=== PATIENT | female | born 1945 | race Caucasian/White ===

== ENCOUNTER → 2017-06-27 16:57 | Outpatient (CLI) | payer MEDICARE, OTHER, SELFPAY | PROVIDERS: Family Provider Family Medicine; PCP Family Medicine; Visit Provider Otolaryngology Otolaryngology/Facial Plastic Surgery | DX: J32.9 Chronic sinusitis, unspecified (principal) | CPT/HCPCS: 87070; 87205 ==

== ENCOUNTER → 2017-10-06 14:53 | Outpatient (CLI) | payer MEDICARE, OTHER, SELFPAY ==
--- NOTE | 2017-10-06 15:04 | BI_ITS ---
MAMMOGRAPHY - BILATERAL SCREENING REASON FOR EXAM: Female, 72 years old. Routine annual screening examination. PERTINENT HISTORY: Non-contributory. TECHNIQUE: Digital bilateral breast sue (3D mammographic acquisition) in the CC and MLO projections. 2-D mediolateral oblique (MLO) and craniocaudad (CC) views of both breasts were obtained. CAD: Full Field Digital Mammography with Computer Added Detection was performed. COMPARISON: Comparison is made with prior study dated 04/15/2015 and July 23, 2014. FINDINGS: Breast Composition: The breasts are heterogeneously dense, which may obscure small masses. There are no dominant masses or suspicious calcifications. No other significant abnormalities are identified. There has been no significant change since the prior study. BI/SCREENING MAMM (CAD), BILAT IMPRESSION: Stable bilateral screening mammogram. Yearly follow-up mammogram recommended. (A) ASSESSMENT CATEGORY: BIRADS Category 1: Negative. A letter regarding these results will be sent to the patient by the facility within 30 days. Approximately 10% of breast cancers are not detected by mammography. A normal mammogram should not delay biopsy of a clinically suspicious abnormality. [id number] Electronically Signed: Juanpablo Duran MD at 8:12 EDT Tel [phone], Service support ,
== END ==
PROVIDERS: Family Provider Family Medicine; PCP Family Medicine; Visit Provider Family Medicine
DX: Z12.31 Encounter for screening mammogram for malignant neoplasm of breast (principal)
CPT/HCPCS: 77062; 77067; G0279

== ENCOUNTER → 2018-01-13 15:44 | Outpatient (CLI) | payer MEDICARE, OTHER, SELFPAY | PROVIDERS: Family Provider Family Medicine; PCP Family Medicine; Referring Provider Family Medicine; Visit Provider Family Medicine | DX: R30.0 Dysuria (principal) | CPT/HCPCS: 87086; 87088; 87186 ==

== ENCOUNTER 2018-07-11 19:53 | Emergency (ER) | payer MEDICARE, OTHER, SELFPAY ==
[2018-07-11 19:57] VITALS: BP 154/96; PULSE 74; PULSE 76; RESP 17; RESP 18; TEMP 36.6; O2SAT 98; O2SAT 99; BMI 22.2
--- NOTE | 2018-07-11 20:20 | RAD_ITS ---
STUDY: X-RAY - LEFT ELBOW REASON FOR EXAM: Female, 73 years old. Pain TECHNIQUE: 3 view(s) of the elbow. COMPARISON: None. FINDINGS: A moderate effusion is present. There is a minimally displaced intra-articular fracture of the radial head. There are no significant degenerative changes. There are no radiodense foreign bodies. RAD/Elbow min 3 Views IMPRESSION: Moderate effusion with minimally displaced intra-articular fracture of the radial head. Electronically Signed: Richard Mclaughlin, at 21:10 EDT Tel , Service support ,
--- NOTE | 2018-07-11 21:11 | ED.VISSUMM ---
- ER Visit Summary Date of Service: 07/11/18 Chief Complaint: Fall History of Present Illness: The patient is a 73 F presenting after fall. Patient states that she was at her grandson's baseball game. She was getting off the bleachers. She states it was higher than she thought and when she stepped off she lost her balance and fell onto her left arm. She did not hit her head or lose consciousness. She was able to get up and ambulate without difficulty. She is not on anticoagulants. She complains of left elbow pain. Denies other injuries. Physical Examination: Vitals are stable. Patient is afebrile. Alert no acute distress. HEENT exam is unremarkable. Neck is nontender Lungs are clear and equal bilaterally. Heart is regular rate and rhythm. Abdomen is soft nontender nondistended. Extremities left elbow diffuse tenderness with painful range of motion, neurovascular intact distally Skin is warm and dry. No focal neurologic deficit. Remainder of exam is unremarkable. Emergency Department Course and Treatment: Left elbow x-ray shows moderate effusion with minimally displaced intra-articular fracture of the radial head. Patient was put in posterior arm Ortho-Glass splint. She declined pain medication. She is advised to follow-up with orthopedics. Advised return to the ED for worsening complaints. Disposition: Discharge home Impression: Left radial head fracture This note was generated with Metaps dictation software. It may contain incorrect words, spelling, and punctuation that were not noted in review of the chart prior to signing ED Disposition - Plan for ED Patient: Instructions: ED Fx Radial Head Referrals: Edwardo Petit MD [Primary Care Provider] - Aguila Pizarro DO [STAFF PHYSICIAN] - Eduardo Hernandez DO [STAFF PHYSICIAN] -
--- NOTE | 2018-07-11 22:36 | ED.DEP ---
ED Disposition - Plan for ED Patient: Instructions: ED Fx Radial Head Referrals: Edwardo Petit MD [Primary Care Provider] - Aguila Pizarro DO [STAFF PHYSICIAN] - Eduardo Hernandez DO [STAFF PHYSICIAN] -
== END 2018-07-11 22:59 | disposition home or self-care (01) ==
PROVIDERS: Emergency Provider Emergency Medicine; Family Provider Family Medicine; PCP Family Medicine
DX: S52.122A Displaced fracture of head of left radius, initial encounter for closed fracture (principal); W17.89XA Other fall from one level to another, initial encounter; Y93.89 Activity, other specified; Y92.320 Baseball field as the place of occurrence of the external cause; Y99.9 Unspecified external cause status
CPT/HCPCS: 73080; 99282

== ENCOUNTER → 2018-09-29 07:24 | Outpatient (CLI) | payer MEDICARE, OTHER, SELFPAY ==
[2018-09-29 08:29] LABS: Absolute Lymphocyte Count 1.47 X10^3/uL (0.83-4.51); Absolute Neutrophil Count 2.4 X10^3/uL (2.0-7.7); Basophil# 0.03 X10^3/uL; Basophil% 0.6 % (0-1); Eosinophil# 0.18 X10^3/uL; Eosinophils% 3.9 % (0-5); Hematocrit 41.1 % (37-47); Hemoglobin 13.5 g/dL (12.0-15.0); Lymphocyte # 1.47 X10^3/ul (4.0); Lymphocyte % 31.7 % (19-41); Mean Corp Hgb Conc 32.8 g/dL (32-36); Mean Corpuscular Hgb 29.9 pg (27.0-32.0); Mean Corpuscular Volume 90.9 fL (81-99); Mean Platelet Vol. 8.9 fl (6.2-12.0); Monocyte# 0.52 X10^3/uL; Monocyte% 11.2 % (0-10); NRBC Flagged by Analyzer 0 % (0-5); Neutrophil # 2.42 X10^3/uL (2.7-7.7); Neutrophil % 52.2 % (47-70); Platelet Count 329 K/mm3 (150-450); RBC Distribution Width CV 12.4 % (11.6-14.6); RBC Distribution Width SD 41.1 fl (35.1-43.9); Red Blood Count 4.52 M/mm3 (4.2-5.4); White Blood Count 4.6 K/mm3 (4.4-11.0)
[2018-09-29 09:04] LABS: Anion Gap 6 (5-15); BUN 15 mg/dL (7-18); BUN/Creat Ratio 21.9 RATIO (10-20); Calcium,Total 9.3 mg/dL (8.5-10.1); Chloride 99 mmol/L (98-107); Cholesterol 191 mg/dL (200); Creatinine, Serum 0.68 mg/dL (0.55-1.02); EST Glomerular Filtration Rate 90 mL/min (>60); Est Glom Filt Rate - Afr Amer 109 mL/min (>60); Glucose 94 mg/dL (74-106); High Density Lipoprotein 99 mg/dL; Potassium 3.9 mmol/L (3.5-5.1); Sodium Level 136 mmol/L (136-145); Thyroid Stim Hormone (TSH) 2.39 uIU/mL (0.358-3.74); Triglycerides 41 mg/dL; Very Low Density Lipoprotein 8 mg/dL (5-40)
== END ==
PROVIDERS: Family Provider Family Medicine; PCP Family Medicine; Referring Provider Family Medicine; Visit Provider Family Medicine
DX: Z00.00 Encounter for general adult medical examination without abnormal findings (principal); E55.9 Vitamin D deficiency, unspecified
CPT/HCPCS: 36415; 80048; 80061; 82306; 84443; 85025

== ENCOUNTER → 2018-10-25 11:10 | Outpatient (CLI) | payer MEDICARE, OTHER, SELFPAY ==
--- NOTE | 2018-10-25 11:24 | BI_ITS ---
MAMMOGRAPHY - BILATERAL SCREENING 3-D TOMOSYNTHESIS REASON FOR EXAM: Female, 73 years old. Bilateral Screening 3-D tomosynthesis PERTINENT HISTORY: No significant family history. TECHNIQUE: 2-D mammograms and 3-D Tomosynthesis of the breast (s) were performed. CAD was performed. COMPARISON: 10/06/2017, 08/24/2015, 07/23/2014 FINDINGS: The breast composition is heterogeneously dense that can obscure small breast masses. Scattered benign calcifications are seen. No dense spiculated masses or suspicious microcalcifications are identified. No architectural distortion is identified. There is no skin thickening or retraction. There has been no significant change since the prior study. BI/SCREEN MAMM (CAD) W/FREDDIE BILAT IMPRESSION: No mammographic signs of malignancy. Routine yearly mammograms recommended. ASSESSMENT CATEGORY: BIRADS Category 2: Benign. A letter regarding these results will be sent to the patient by the facility within 30 days. FOLLOW UP RECOMMENDATION: Yearly follow up mammogram recommended. (A) Approximately 10% of breast cancers are not detected by mammography. A normal mammogram should not delay biopsy of a clinically suspicious abnormality. Electronically Signed: Jeo Gibbs MD at 16:20 EDT Tel [phone], Service support ,
--- NOTE | 2018-10-25 11:24 | BD_ITS ---
STUDY: DUAL ENERGY X-RAY ABSORPTIOMETRY / DXA REASON FOR EXAM: Female, 73 years old. The patient is postmenopausal. No loss of height. TECHNIQUE: Bone Mineral Density (BMD) measurements of lumbar spine and bilateral hips were obtained. COMPARISON: Comparison is made with prior study dated August 24, 2016. FINDINGS: Lumbar Spine (L1-L4): g/cm2 (0.845) / T-score (-2.7) / Z-score (-1.0) Findings are suggestive of osteoporosis with a high fracture risk. Left Femur Total: g/cm2 (0.872) / T-score (-1.1) / Z-score (0.5) Left Femoral Neck: g/cm2 (0.876) / T-score (-1.2) / Z-score (0.6) Right Femur Total: g/cm2 (0.876) / T-score (-1.0) / Z-score (0.5) Right Femoral Neck: g/cm2 (0.876) / T-score (-1.2) / Z-score (0.6) The T-Scores on the most recent prior examination were: Lumbar Spine (L1-L4): There has been worsening of bone density since the previous examination. Left Femur Total: which represents a worsening of 1.6%. Right Femur Total: which represents an improvement of 1.2%. BD/Dexa Bone Density Study IMPRESSION: The patient is considered osteoporotic as outlined below according to World Andrzej Organization (WHO) criteria with a high fracture risk. There has been worsening of bone density since the previous examination. Reference Information: The T-score is the number of standard deviations above or below the standard which is normal for young adults at their peak bone mineral density. The World Health Organization (WHO) interprets the T-scores as follows: Above -1 Normal bone density Between -1 and -2.5 Osteopenia Equal to / or below -2.5 Osteoporosis As a practical clinical guideline, osteopenia may be graded as follows: Mild -1 through -1.5 Moderate -1.6 through -2.0 Severe -2.1 through -2.4 The Z-score is the number of standard deviations above or below age-matched controls. A Z-score of less than -1.5 would be considered abnormal. References: 1. NIH Osteoporosis and Related Bone Diseases http://www.osteo.org 2. International Society for Clinical Densitometry http://www.iscd.org 3. National Osteoporosis Foundation http://www.nof.org Electronically Signed: Juanpablo Duran, at 10:58 EDT , Service support ,
== END ==
PROVIDERS: Family Provider Family Medicine; PCP Family Medicine; Referring Provider Family Medicine; Visit Provider Family Medicine
DX: Z12.31 Encounter for screening mammogram for malignant neoplasm of breast (principal); Z78.0 Asymptomatic menopausal state
CPT/HCPCS: 77063; 77067; 77080

== ENCOUNTER 2018-11-22 13:00 | Outpatient (RCR) | payer MEDICARE, OTHER, SELFPAY ==
--- NOTE | 2018-11-15 14:06 | HP.PTEVAL_ITS ---
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 Date of Evaluation: 11/15/18 Physical Therapist: Dennis Ricketts, PT, Cert MDT, OCS - Visit Plan Frequency: 1-2x /Week Duration: 3 Weeks Plan: PT INTERVENTIONS WB ACTIITIES ,DLS,POSTURAL EX'S - Subjective Findings: This 73y/o female presents physical therapy osteoprosis of spine . Patient had routine physical with MD found osteoprosis . Patient main goal is to strength and posture and education with prevention. Denies parathesia/tingling Coughing/sneezing-. Bowel/bladder -. Sleeping okay. Patient worksout at . Patient has minimla pain. Symptoms affects QOL.Aggravating factors too much bending. Alleviating factors exercise. Patient has DJD left shoulder needs RSR. 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 SOCIAL: - Objective POSTURE: WFL. NEURO: intact. SYMMTRIES: align. GAIT: reciprocal pattern. PALPATION: unremarkable. MMT: 4/5 BLE QUADS/HAMS/HIP ANKLE. LUMBAR ROM: flexion WNL,extension min loss,side glides min loss. FLEXABLIY: hams WNL - Special Tests L/S Slump test left side: Negative L/S Slump test right side: Negative L/S Left Straight Leg Raise: Negative L/S Right Straight Leg Raise: Negative L/S Left Femoral Nerve Tension: Negative L/S Right Femoral Nerve Tension: Negative - Goals Goal 1:: Patient to Independant with HEP. Goal Time Frame: 2-4 Weeks Goal 2:: Patient to improve posture for ADL'S Goal Time Frame: 2-4 Weeks Goal 3:: No epsisode of lumbar pain. Goal Time Frame: 2-4 Weeks Goal 4:: Pateint improve back owestry score 100% Goal Time Frame: 2-4 Weeks - Rehabilitation Potential Physical Therapy Diagnosis: This patient has osteoporesis lumbar spine benifit from appropriate exercises for skilled PT Rehabilitation Potential: Good - Anticipated Interventions Patient/Client Instruction: Educate patient on: Condition, Plan of Care For the Purpose of:: To decrease pain, To increase ROM, To improve muscle performance and motor function, To increase tolerance to activity/con dition/position, To improve ability of physical actions for home/community/work/leisure, To improve health of tissue, To decrease soft tissue restriction, To increase flexibility/ROM, To improve ability to perform tasks related to life management Therapeutic Exercise to Include: Strength training, Body mechanics, Postural training, Flexibilty training, Dynamic Lumbar Stabilization Comment: WB For the Purpose of:: To decrease pain, To improve muscle performance and motor function, To improve ability to perform ADL's, To increase tolerance to activity/condition/position, To improve ability of physical actions for home/community/work/leisure, To improve health of tissue, To decrease soft tissue restriction, To increase flexibility/ROM, To improve ability to perform tasks related to life management Thank you for the opportunity to evaluate your patient. For Medicare and Medicare HMO plans, please review the plan of care and approve it. It will need to be FAXED BACK to us at [phone] for Medicare purposes. For Medicare only, by signing this I certify the plan of care. Please let me know if there are questions or concerns regarding this plan of care. Physician Signature: Date:
--- NOTE | 2019-01-04 15:30 | HP.PTDCNRP_ITS ---
HP - Discharge Summary (1) - Patient Information ANTONIO KANG was seen in my office for initial evaluation on 11/15/18. The following Plan of Care was established for this patient: Initial Frequency: 1-2x /Week Initial Duration: 3 Weeks - Anticipated Interventions Patient/Client Instruction: Educate patient on: Condition, Plan of Care For the Purpose of:: To decrease pain, To increase ROM, To improve muscle perf ormance and motor function, To increase tolerance to activity/condition/position, To improve ability of physical actions for home/community/work/leisure, To improve health of tissue, To decrease soft tissue restriction, To increase flexibility/ROM, To improve ability to perform tasks related to life management Therapeutic Exercise to Include: Strength training, Body mechanics, Postural training, Flexibilty training, Dynamic Lumbar Stabilization For the Purpose of:: To decrease pain, To improve muscle performance and motor function, To improve ability to perform ADL's, To increase tolerance to activity/condition/position, To improve ability of physical actions for home/community/work/leisure, To improve health of tissue, To decrease soft tis edda restriction, To increase flexibility/ROM, To improve ability to perform tasks related to life management This patient was last seen in our office 11/22/18. Pertinent comments regarding their Physical therapy will appear below: Patient seen for PT for osteoprosis with pogression to gym ex's on own thus is d/c At this point I will be discontinuing this patient from physical therapy. I would be happy to see this patient again in the future if found appropriate by the physician. Thank you! Dennis Ricketts, PT, Cert MDT, OCS
== END 2018-11-22 19:00 | disposition home or self-care (01) ==
LOC: PT 13:00
PROVIDERS: Family Provider Family Medicine; PCP Family Medicine; Referring Provider Family Medicine; Visit Provider Family Medicine
DX: M81.0 Age-related osteoporosis without current pathological fracture (principal)
CPT/HCPCS: 97110; 97161

== ENCOUNTER → 2018-11-29 10:58 | Outpatient (CLI) | payer MEDICARE, OTHER, SELFPAY ==
[2018-11-29 11:04] VITALS: BP 123/54; PULSE 90; RESP 16; TEMP 36.6; O2SAT 98; BMI 22.6
[2018-11-29] MEDS: Zoledronic Acid 5 MG 100 ML 300 MG IV (11:39)
== END ==
PROVIDERS: Family Provider Family Medicine; PCP Family Medicine; Referring Provider Family Medicine; Visit Provider Family Medicine
DX: M81.0 Age-related osteoporosis without current pathological fracture (principal)
CPT/HCPCS: 96365; A4216; J3489

== ENCOUNTER → 2018-12-12 14:03 | Outpatient (CLI) | payer MEDICARE, OTHER, SELFPAY ==
[2018-11-29 11:04] VITALS: BMI 22.6
== END ==
PROVIDERS: Family Provider Family Medicine; PCP Family Medicine; Referring Provider Nurse Practitioner Adult Health; Visit Provider Nurse Practitioner Adult Health
DX: N39.0 Urinary tract infection, site not specified (principal)
CPT/HCPCS: 87077; 87086; 87088; 87186

== ENCOUNTER → 2019-04-27 12:37 | Outpatient (CLI) | payer MEDICARE, OTHER, SELFPAY ==
[2018-11-29 11:04] VITALS: BMI 22.6
== END ==
PROVIDERS: PCP Family Medicine; Referring Provider Family Medicine; Visit Provider Family Medicine
DX: N39.0 Urinary tract infection, site not specified (principal)
CPT/HCPCS: 87086; 87088

== ENCOUNTER → 2019-05-03 12:37 | Outpatient (CLI) | payer MEDICARE, OTHER, SELFPAY ==
[2018-11-29 11:04] VITALS: BMI 22.6
[2019-05-03 13:55] LABS: Bacteria 0 SEEN /hpf (None Seen); Mucous, Urine 0 SEEN /hpf (<or=2+); Red Blood Cells-Urine 0 SEEN /hpf (0-5); Squamous Epithelial Cells - UA 0 SEEN /hpf (5-10); White Blood Cells 0 SEEN /hpf (0-5)
[2019-05-03 14:24] LABS: Color, Urine Yellow (Yellow); Glucose, Dipstick Normal (Normal); Ketone-Dipstick Negative (Negative); Leukocyte Esterase-Dipstick Negative /ul (Negative); Nitrite-Dipstick Negative (Negative); Occult Blood-Urine Negative /ul (Negative); Protein-Dipstick Negative (Negative); Specific Gravity, Urine 1.015 (1.002-1.030); Urine Bilirubin Dipstick Negative (Negative); Urine Clarity Clear (Clear); Urine Urobilinogen Normal (Normal)
== END ==
PROVIDERS: PCP Family Medicine; Referring Provider Family Medicine; Visit Provider Family Medicine
DX: N39.0 Urinary tract infection, site not specified (principal)
CPT/HCPCS: 81001; 87086; 87088

== ENCOUNTER → 2019-05-23 11:14 | Outpatient (CLI) | payer MEDICARE, OTHER, SELFPAY ==
[2018-11-29 11:04] VITALS: BMI 22.6
[2019-05-23 12:34] LABS: Color, Urine Yellow (Yellow); Glucose, Dipstick Normal (Normal); Ketone-Dipstick Negative (Negative); Leukocyte Esterase-Dipstick 500 /ul (Negative); Nitrite-Dipstick Negative (Negative); Occult Blood-Urine 250 /ul (Negative); Protein-Dipstick 30 mg/dl (Negative); Urine Bilirubin Dipstick Negative (Negative); Urine Clarity Cloudy (Clear); Urine Urobilinogen Normal (Normal)
== END ==
PROVIDERS: PCP Family Medicine; Referring Provider Urology; Visit Provider Urology
DX: N39.0 Urinary tract infection, site not specified (principal); R30.0 Dysuria
CPT/HCPCS: 81002; 87086; 87088; 87186

== ENCOUNTER → 2019-06-04 09:57 | Outpatient (CLI) | payer MEDICARE, OTHER, SELFPAY ==
[2018-11-29 11:04] VITALS: BMI 22.6
== END ==
PROVIDERS: PCP Family Medicine; Referring Provider Urology; Visit Provider Urology
DX: R30.0 Dysuria (principal); R39.15 Urgency of urination
CPT/HCPCS: 87086; 87088; 87186

== ENCOUNTER → 2019-07-06 09:20 | Outpatient (CLI) | payer MEDICARE, OTHER, SELFPAY ==
[2018-11-29 11:04] VITALS: BMI 22.6
--- NOTE | 2019-07-06 09:23 | US_ITS ---
STUDY: RENAL ULTRASOUND - COMPLETE REASON FOR EXAM: Female, 74 years old. Uti TECHNIQUE: Ultrasound evaluation of the kidneys was performed with real-time and static yanez-scale imaging. COMPARISON: None. FINDINGS: RIGHT KIDNEY: Normal location of the right kidney, which is normal in size. The right kidney measures 11 cm x 4.1 cm x 4.1 cm. There is a normal cortex of the right kidney. The renal cortex measures 1.6 cm. There is no right renal mass or cyst. There are no right renal calculi. There is an extra-renal pelvis of the right kidney. There is no distention of the renal calyces. DISTAL RIGHT URETER: There is non-visualization of the distal right ureter. There is no demonstrated right ureterovesical junction calculus. There is a visualized right ureteral jet. LEFT KIDNEY: Normal location of the left kidney, which is normal in size. The left kidney measures 11.1 cm x 4.7 cm x 4.4 cm. There is a normal cortex of the left kidney. The renal cortex measures 1.8 cm. There is no left renal mass or cyst. There are no left renal calculi. There is no left hydronephrosis. DISTAL LEFT URETER: There is non-visualization of the distal left ureter. There is no demonstrated left ureterovesical junction calculus. There is a visualized left ureteral jet. BLADDER: The distended urinary bladder has a volume of 76.2 ml. There is evidence of diffuse bladder wall thickening. There is a 2.5 cm x 3.1 cm x 2.8 cm polypoid abnormality along the base of the bladder on the left side. Correlation with the cystoscopy is recommended. US/Kidney and Bladder IMPRESSION: Bladder wall thickening with a 2.5 cm x 3.1 cm by 2.8 cm faint polypoid abnormality at the base of the bladder on the left side. Correlation with cystoscopy is recommended. Electronically Signed: Juanpablo Duran, at 10:59 EDT , Service support ,
== END ==
PROVIDERS: PCP Family Medicine; Referring Provider Urology; Visit Provider Urology
DX: N39.0 Urinary tract infection, site not specified (principal)
CPT/HCPCS: 76770

== ENCOUNTER → 2019-10-04 07:21 | Outpatient (CLI) | payer MEDICARE, OTHER, SELFPAY ==
[2018-11-29 11:04] VITALS: BMI 22.6
[2019-10-04 10:19] LABS: Absolute Lymphocyte Count 1.56 X10^3/uL (0.83-4.51); Absolute Neutrophil Count 2.5 X10^3/uL (2.0-7.7); Basophil# 0.03 X10^3/uL; Basophil% 0.6 % (0-1); Eosinophil# 0.19 X10^3/uL; Eosinophils% 3.8 % (0-5); Hematocrit 42.2 % (37-47); Hemoglobin 13.7 g/dL (12.0-15.0); Lymphocyte # 1.56 X10^3/ul (4.0); Lymphocyte % 31.6 % (19-41); Mean Corp Hgb Conc 32.5 g/dL (32-36); Mean Corpuscular Volume 92.3 fL (81-99); Monocyte% 12.1 % (0-10); NRBC Flagged by Analyzer 0 % (0-5); Neutrophil # 2.54 X10^3/uL (2.7-7.7); Neutrophil % 51.5 % (47-70); Platelet Count 346 K/mm3 (150-450); RBC Distribution Width CV 12.1 % (11.6-14.6); RBC Distribution Width SD 40.9 fl (35.1-43.9); Red Blood Count 4.57 M/mm3 (4.2-5.4); White Blood Count 4.9 K/mm3 (4.4-11.0)
[2019-10-04 10:50] LABS: ALB/GLOB Ratio 0.9 RATIO (0.9-2.4); AST(SGOT) 14 U/L (15-37); Alanine Aminotransfer ALT/SGPT 16 U/L (13-56); Albumin, Serum 3.6 g/dL (3.2-5.0); Alkaline Phosphatase 59 U/L (45-117); Anion Gap 5 (5-15); BUN 13 mg/dL (7-18); Calcium,Total 9.1 mg/dL (8.5-10.1); Chloride 101 mmol/L (98-107); Cholesterol 219 mg/dL (200); Creatinine, Serum 0.68 mg/dL (0.55-1.02); EST Glomerular Filtration Rate 89 mL/min (>60); Est Glom Filt Rate - Afr Amer 108 mL/min (>60); Globulin 4.2 g/dL (2.2-4.2); Glucose 90 mg/dL (74-106); High Density Lipoprotein 95 mg/dL; Potassium 3.8 mmol/L (3.5-5.1); Protein, Total 7.8 g/dL (6.4-8.2); Sodium Level 137 mmol/L (136-145); Thyroid Stim Hormone (TSH) 2.89 uIU/mL (0.358-3.74); Triglycerides 58 mg/dL; Very Low Density Lipoprotein 12 mg/dL (5-40)
== END ==
PROVIDERS: PCP Family Medicine; Referring Provider Family Medicine; Visit Provider Family Medicine
DX: Z00.00 Encounter for general adult medical examination without abnormal findings (principal); M81.0 Age-related osteoporosis without current pathological fracture; R53.83 Other fatigue
CPT/HCPCS: 36415; 80053; 80061; 84443; 85025

== ENCOUNTER → 2019-12-05 | Outpatient (CLI) | payer MEDICARE, OTHER, SELFPAY ==
[2018-11-29 11:04] VITALS: BMI 22.6
[2019-12-05 11:24] VITALS: BP 116/65; PULSE 70; RESP 16; TEMP 36.5; O2SAT 98; BMI 22.4
[2019-12-05] MEDS: 0.9% NaCl Peripheral Flush Adult/Peds IV (11:27)
[2019-12-05] MEDS: Zoledronic Acid 5 MG 100 ML 300 MG IV (11:33)
[2019-12-05 11:56] VITALS: BP 127/59; PULSE 59; RESP 16
== END | disposition home or self-care (01) ==
LOC: MEDOUTP 10:59
PROVIDERS: PCP Family Medicine; Referring Provider Family Medicine; Visit Provider Family Medicine
DX: M81.0 Age-related osteoporosis without current pathological fracture (principal)
CPT/HCPCS: 96365; A4216; J3489

== ENCOUNTER → 2020-04-04 07:49 | Outpatient (CLI) | payer MEDICARE, OTHER, SELFPAY ==
[2019-12-05 11:24] VITALS: BMI 22.4
[2020-04-04 10:34] LABS: ALB/GLOB Ratio 0.9 RATIO (0.9-2.4); AST(SGOT) 11 U/L (15-37); Alanine Aminotransfer ALT/SGPT 17 U/L (13-56); Albumin, Serum 3.7 g/dL (3.2-5.0); Alkaline Phosphatase 53 U/L (45-117); Anion Gap 4 (5-15); BUN 11 mg/dL (7-18); BUN/Creat Ratio 18.2 RATIO (10-20); Calcium,Total 9.4 mg/dL (8.5-10.1); Chloride 100 mmol/L (98-107); Creatinine, Serum 0.61 mg/dL (0.55-1.02); EST Glomerular Filtration Rate 103 mL/min (>60); Est Glom Filt Rate - Afr Amer 125 mL/min (>60); Globulin 3.9 g/dL (2.2-4.2); Glucose 84 mg/dL (74-106); Potassium 3.7 mmol/L (3.5-5.1); Protein, Total 7.6 g/dL (6.4-8.2); Sodium Level 135 mmol/L (136-145); Thyroid Stim Hormone (TSH) 2.37 uIU/mL (0.358-3.74)
== END ==
PROVIDERS: PCP Family Medicine; Referring Provider Family Medicine; Visit Provider Family Medicine
DX: M81.0 Age-related osteoporosis without current pathological fracture (principal)
CPT/HCPCS: 80053; 84443

== ENCOUNTER → 2020-04-21 08:53 | Outpatient (CLI) | payer MEDICARE, OTHER, SELFPAY ==
[2020-04-17 14:42] VITALS: BMI 23.7
--- NOTE | 2020-04-21 08:55 | RAD_ITS ---
STUDY: X-RAY - LUMBAR SPINE REASON FOR EXAM: Female, 75 years old. back pain TECHNIQUE: 7 view(s) of the lumbar spine were obtained. COMPARISON: 07/21/2011 FINDINGS: Normal lumbar lordosis. There is grade 1 anterolisthesis at L3/L4 and L4/L5, stable on flexion and extension. There is multilevel endplate spondylosis of the lumbar vertebrae. There is multi-level degenerative disc disease with multi-level disc space narrowing. The soft tissue structures are unremarkable. RAD/L/S Spine w Bend Min 6 Vw IMPRESSION: Degenerative changes of the spine. Electronically Signed: Walker Mena MD at 10:21 EST Tel , Service support ,
--- NOTE | 2020-04-21 08:55 | RAD_ITS ---
STUDY: X-RAY - CERVICAL SPINE REASON FOR EXAM: Female, 75 years old. back pain TECHNIQUE: 7 view(s) of the cervical spine were obtained. COMPARISON: None FINDINGS: Normal cervical lordosis. There is multi-level endplate spondylosis. There is multi-level degenerative disc disease with multilevel disc space narrowing. There are grade 1 anterolisthesis on flexion at C2-C3, C4 and C5 which completely reduces in extension. The soft tissue structures are unremarkable. RAD/Cerv Spine Obl/Flex/Ext Comp IMPRESSION: Degenerative changes of the spine. Electronically Signed: Walker Mena MD at 10:24 EST Tel , Service support ,
== END ==
PROVIDERS: PCP Family Medicine; Referring Provider Family Medicine; Visit Provider Family Medicine
DX: M54.9 Dorsalgia, unspecified (principal)
CPT/HCPCS: 72052; 72114

== ENCOUNTER → 2020-10-09 07:51 | Outpatient (CLI) | payer MEDICARE, OTHER, SELFPAY ==
[2020-10-07 13:01] VITALS: BMI 23.7
[2020-10-09 10:10] LABS: Absolute Lymphocyte Count 1.19 X10^3/uL (0.83-4.51); Absolute Neutrophil Count 2.4 X10^3/uL (2.0-7.7); Basophil# 0.03 X10^3/uL; Basophil% 0.7 % (0-1); Eosinophil# 0.17 X10^3/uL; Hematocrit 41.5 % (37-47); Hemoglobin 13.8 g/dL (12.0-15.0); Lymphocyte # 1.19 X10^3/ul (0.83-4.51); Lymphocyte % 27.7 % (19-41); Mean Corp Hgb Conc 33.3 g/dL (32-36); Mean Corpuscular Hgb 30.5 pg (27.0-32.0); Mean Corpuscular Volume 91.6 fL (81-99); Mean Platelet Vol. 9.2 fl (6.2-12.0); Monocyte# 0.47 X10^3/uL; NRBC Flagged by Analyzer 0 % (0-5); Neutrophil # 2.41 X10^3/uL (2.7-7.7); Neutrophil % 56.1 % (47-70); Platelet Count 383 K/mm3 (150-450); RBC Distribution Width CV 12.3 % (11.6-14.6); RBC Distribution Width SD 41.9 fl (35.1-43.9); Red Blood Count 4.53 M/mm3 (4.2-5.4); White Blood Count 4.3 K/mm3 (4.4-11.0)
[2020-10-09 10:28] LABS: Vitamin D,25 Hydroxy 38.3 ng/mL
[2020-10-09 10:32] LABS: PTHIN 54.3 pg/mL (18.4-80.1)
[2020-10-09 10:48] LABS: ALB/GLOB Ratio 0.9 RATIO (0.9-2.4); AST(SGOT) 16 U/L (15-37); Alanine Aminotransfer ALT/SGPT 16 U/L (13-56); Albumin, Serum 3.6 g/dL (3.2-5.0); Alkaline Phosphatase 59 U/L (45-117); Anion Gap 9 (5-15); BUN 12 mg/dL (7-18); BUN/Creat Ratio 19.9 RATIO (10-20); Chloride 97 mmol/L (98-107); Cholesterol 227 mg/dL (200); EST Glomerular Filtration Rate 104 mL/min (>60); Est Glom Filt Rate - Afr Amer 125 mL/min (>60); Globulin 3.8 g/dL (2.2-4.2); Glucose 88 mg/dL (74-106); High Density Lipoprotein 91 mg/dL; Potassium 3.8 mmol/L (3.5-5.1); Protein, Total 7.4 g/dL (6.4-8.2); Sodium Level 134 mmol/L (136-145); Thyroid Stim Hormone (TSH) 2.05 uIU/mL (0.358-3.74); Triglycerides 53 mg/dL; Very Low Density Lipoprotein 11 mg/dL (5-40)
== END ==
PROVIDERS: PCP Family Medicine; Referring Provider Family Medicine; Visit Provider Family Medicine
DX: M81.0 Age-related osteoporosis without current pathological fracture (principal); J44.9 Chronic obstructive pulmonary disease, unspecified; E03.9 Hypothyroidism, unspecified
CPT/HCPCS: 36415; 80053; 80061; 82306; 83970; 84443; 85025

== ENCOUNTER → 2020-10-30 15:19 | Outpatient (CLI) | payer MEDICARE, OTHER, SELFPAY ==
[2020-10-07 13:01] VITALS: BMI 23.7
--- NOTE | 2020-10-30 15:22 | BI_ITS ---
MAMMOGRAPHY - BILATERAL SCREENING REASON FOR EXAM: Female, 75 years old. Routine annual screening examination. PERTINENT HISTORY: Non-contributory. TECHNIQUE: Digital bilateral breast freddie (3D mammographic acquisition) in the CC and MLO projections. 2-D mediolateral oblique (MLO) and craniocaudad (CC) views of both breasts were obtained. CAD: Full Field Digital Mammography with Computer Added Detection was performed. COMPARISON: Comparison is made with prior examination dated 10/25/2018 and 10/06/2017. FINDINGS: Breast Composition: The breasts are heterogeneously dense, which may obscure small masses. There are no dominant masses or suspicious calcifications. No other significant abnormalities are identified. There has been no significant change since the prior study. BI/SCRN MAMM (CAD)W/FREDDIE BILAT IMPRESSION: Stable bilateral screening mammogram. Yearly follow-up mammogram recommended. (A) ASSESSMENT CATEGORY: BIRADS Category 1: Negative. A letter regarding these results will be sent to the patient by the facility within 30 days. Approximately 10% of breast cancers are not detected by mammography. A normal mammogram should not delay biopsy of a clinically suspicious abnormality. [id number] Electronically Signed: Juanpablo Duran MD at 7:21 EDT , Service support ,
--- NOTE | 2020-10-30 15:25 | BD_ITS ---
STUDY: DUAL ENERGY X-RAY ABSORPTIOMETRY / DXA REASON FOR EXAM: Female, 75 years old. [id number]. Patient is postmenopausal. TECHNIQUE: Bone Mineral Density (BMD) measurements of lumbar spine and bilateral hips were obtained. COMPARISON: Comparison is made with prior study date 10/25/2018. FINDINGS: Lumbar Spine (L1-L4): g/cm2 (0.729) / T-score (-2.3) / Z-score (-0.1) Findings are suggestive of osteopenia with a high fracture risk. Left Femur Total: g/cm2 (0.823) / T-score (-1.0) / Z-score (0.7) Left Femoral Neck: g/cm2 (0.794) / T-score (-0.5) / Z-score (1.5) Right Femur Total: g/cm2 (0.799) / T-score (-1.2) / Z-score (0.5) Right Femoral Neck: g/cm2 (0.706) / T-score (-1.3) / Z-score (0.7) The T-Scores on the most recent prior examination were: Lumbar Spine (L1-L4): There has been worsening of bone density since the previous examination. Left Femur Total: which represents an improvement of 1.6%. Right Femur Total: which represents a worsening of 1.8%. BD/Dexa Bone Density Study IMPRESSION: The patient is considered osteopenic as outlined below according to World Andrzej Organization (WHO) criteria with a moderate fracture risk. There has been worsening of bone density since the previous examination. Reference Information: The T-score is the number of standard deviations above or below the standard which is normal for young adults at their peak bone mineral density. The World Health Organization (WHO) interprets the T-scores as follows: Above -1 Normal bone density Between -1 and -2.5 Osteopenia Equal to / or below -2.5 Osteoporosis As a practical clinical guideline, osteopenia may be graded as follows: Mild -1 through -1.5 Moderate -1.6 through -2.0 Severe -2.1 through -2.4 The Z-score is the number of standard deviations above or below age-matched controls. A Z-score of less than -1.5 would be considered abnormal. References: 1. NIH Osteoporosis and Related Bone Diseases www osteo.org 2. International Society for Clinical Densitometry www iscd.org 3. National Osteoporosis Foundation www nof.org Electronically Signed: Juanpablo Duran MD at 8:36 EDT , Service support ,
== END ==
PROVIDERS: PCP Family Medicine; Referring Provider Family Medicine; Visit Provider Family Medicine
DX: Z12.31 Encounter for screening mammogram for malignant neoplasm of breast (principal); M81.0 Age-related osteoporosis without current pathological fracture
CPT/HCPCS: 77063; 77067; 77080

== ENCOUNTER → 2020-11-25 12:51 | Outpatient (CLI) | payer MEDICARE, OTHER, SELFPAY ==
[2020-11-25 13:13] VITALS: BP 88/58; PULSE 67; RESP 16; TEMP 36.3; O2SAT 97
[2020-11-25] MEDS: Zoledronic Acid 5 MG 100 ML 300 MG IV (13:22)
[2020-11-25] MEDS: 0.9% NaCl IVPB Med Flush (250 mL) 15 ML IV (13:22)
[2020-11-25 13:54] VITALS: BP 127/59
== END ==
PROVIDERS: PCP Family Medicine; Referring Provider Family Medicine; Visit Provider Family Medicine
DX: M81.0 Age-related osteoporosis without current pathological fracture (principal)
CPT/HCPCS: 96365; J7050; A4216; J3489

== ENCOUNTER 2021-04-03 18:04 | Outpatient (CLI) | payer MEDICARE, OTHER, SELFPAY | END 2021-04-03 23:59 | disposition short-term general hospital (02) | PROVIDERS: PCP Family Medicine; Referring Provider Family Medicine; Visit Provider Family Medicine | DX: T83.511A Infection and inflammatory reaction due to indwelling urethral catheter, initial encounter (principal) | CPT/HCPCS: 87077; 87086; 87088; 87186 ==

== ENCOUNTER 2021-04-03 21:14 | Outpatient (CLI) | payer MEDICARE, OTHER, SELFPAY ==
[2021-04-04 21:40] LABS: Absolute Lymphocyte Count 1.38 X10^3/uL (0.83-4.51); Absolute Neutrophil Count 8.8 X10^3/uL (2.0-7.7); Basophil# 0.05 X10^3/uL; Basophil% 0.4 % (0-1); Eosinophil# 0.11 X10^3/uL; Hematocrit 41.2 % (37-47); Hemoglobin 13.8 g/dL (12.0-15.0); Lymphocyte # 1.38 X10^3/ul (0.83-4.51); Lymphocyte % 12.4 % (19-41); Mean Corp Hgb Conc 33.5 g/dL (32-36); Mean Corpuscular Hgb 30.5 pg (27.0-32.0); Mean Corpuscular Volume 90.9 fL (81-99); Mean Platelet Vol. 9.5 fl (6.2-12.0); Monocyte# 0.81 X10^3/uL; Monocyte% 7.3 % (0-10); NRBC Flagged by Analyzer 0 % (0-5); Neutrophil # 8.75 X10^3/uL (2.7-7.7); Neutrophil % 78.6 % (47-70); Platelet Count 352 K/mm3 (150-450); RBC Distribution Width CV 12.7 % (11.6-14.6); RBC Distribution Width SD 42.5 fl (35.1-43.9); Red Blood Count 4.53 M/mm3 (4.2-5.4); White Blood Count 11.1 K/mm3 (4.4-11.0)
[2021-04-04 21:41] LABS: BUN 14 mg/dL (7-18); BUN/Creat Ratio 22.2 RATIO (10-20); Creatinine, Serum 0.63 mg/dL (0.55-1.02); EST Glomerular Filtration Rate 98 mL/min (>60); Est Glom Filt Rate - Afr Amer 119 mL/min (>60); Glucose 100 mg/dL (74-106)
[2021-04-04 21:42] LABS: ALB/GLOB Ratio 0.9 RATIO (0.9-2.4); AST(SGOT) 18 U/L (15-37); Alanine Aminotransfer ALT/SGPT 18 U/L (13-56); Albumin, Serum 3.6 g/dL (3.2-5.0); Alkaline Phosphatase 47 U/L (45-117); Anion Gap 5 (5-15); Calcium,Total 9.3 mg/dL (8.5-10.1); Chloride 97 mmol/L (98-107); Potassium 4.2 mmol/L (3.5-5.1); Protein, Total 7.6 g/dL (6.4-8.2); Sodium Level 132 mmol/L (136-145)
== END 2021-04-03 23:59 | disposition short-term general hospital (02) ==
PROVIDERS: PCP Family Medicine; Visit Provider Family Medicine
DX: M19.90 Unspecified osteoarthritis, unspecified site (principal); T83.511A Infection and inflammatory reaction due to indwelling urethral catheter, initial encounter; J44.9 Chronic obstructive pulmonary disease, unspecified
CPT/HCPCS: 80053; 85025; 87077; 87086; 87088; 87186

== ENCOUNTER 2021-05-08 10:00 | Outpatient (RCR) | payer MEDICARE, OTHER, SELFPAY ==
--- NOTE | 2021-04-17 10:10 | HP.PTEVAL ---
Patient's Visit Information ANTONIO KANG is a 76 year old F referred to Physical Therapy by Dr. Marcella Wheatley DPM with a diagnosis of Left Ankle Instability. Date of Evaluation: 04/17/21 Physical Therapist: Katharine Dior DPT - Visit Plan Frequency: 3x /Week Duration: 3 Weeks Plan: Focus on proprioception of left ankle. Patient has comprehensive HEP from MD - Subjective Patient reports that her left ankle she damaged years ago- stepped in a hole and has to wear an air cast and PT but never really was 100% and it continues to bother her. She saw Dr. Wheatley who had her rest in a CAM walker for a month. She wants her to wean out- stretching and strength for a month but she still feels its vulnerable. She has a brace to wear on uneven ground. She is now just doing ellip and bike and is now trying to wean back into the TM- she is active 6 days a week- does upper and lower body- machines at the [facility]- plans to come back to in June. Does wear good shoes and has orthotics. Initially very painful but its much better- does have some discomfort in the top of the foot but not enough to pain scale rate. No recent falls. Goals are to get the ankle more stable. Doing stretching, 4 way dark blue, marbles, toe scrunches, single leg stance. - Objective Posture: FH, RS can correct but does not maintain. Gait: slightly antalgic- decreased stance on the left LE with decreased toe off in push off phase. Stairs: asc/desc 8 recip with no HR. HR/TR: able without pain. Balance: Tandem stance: 15 sec each with increase muscle activation with left foot posterior position. SLS: 30 sec with mild hip drop and 1 episode of LOB. On Foam 30 sec eyes closed 2 episodes of LOB. ROM: DF: 5 degrees PF: 60 degrees, Ever: 50 degrees Inver: 60 degrees. Strength: Ankle: 4+/5, Knee: 5/5, Hip: 4/5 throughout, Core: fair. Flex: HS: moderate Gastroc: moderate - Balance/Special Test Scores Lower Extremity Functional Score: 64 - Goals Goal 1:: Patient will be I with HEP and progression Goal Time Frame: 4-6 Weeks Goal 2:: Patient will SLS for 30 sec without LOB Goal Time Frame: 4-6 Weeks Goal 3:: Patient will report return to all normal ADL's and recreational activities without feeling unstable Goal Time Frame: 4-6 Weeks - Rehabilitation Potential Physical Therapy Diagnosis: Patient presents with hypomobility- she has decreased proprioception and flexibility leading to decreased balance and confidence performing ADL's and recreational activities. Rehabilitation Potential: Good - Anticipated Interventions Patient/Client Instruction: Educate patient on: Benefits of Fitness Program Therapeutic Exercise to Include: Strength training, Endurance training, Balance training, Coordination, Agility training, Body mechanics, Postural training, Flexibilty training, Gait and locomotor training, Neuromotor development, Dynamic Lumbar Stabilization, Scapular Strength/Stabilization For the Purpose of:: To improve muscle performance and motor function Thank you for the opportunity to evaluate your patient. For Medicare and Medicare HMO plans, please review the plan of care and approve it. It will need to be FAXED BACK to us at [phone] for Medicare purposes. For Medicare only, by signing this I certify the plan of care. Please let me know if there are questions or concerns regarding this plan of care. Physician Signature: Date:
--- NOTE | 2021-05-08 10:33 | HP.PTDCSUM ---
It has been my pleasure to treat ANTONIO KANG referred by Dr. Marcella Wheatley DPM, with the diagnosis of Left Ankle Instability for a total of 10 visit(s). Discharge Date: Please see the following information for a summary of their discharge status. Subjective: Patient reports that she feels that she is stronger and her balance is better. left ankle Pain Intensity (Out of 10): 0 % Improvement: 90 Objective/Function: Posture: good throughout. Gait: no deviation noted Stairs: asc/desc 8 recip with no HR. HR/TR: able without pain. Balance: Tandem stance: 15 sec each with increase muscle activation with left foot posterior position. SLS: 30 sec . On Foam 30 sec eyes closed no episodes of LOB. ROM: DF: 10 degrees PF: 60 degrees, Ever: 50 degrees Inver: 60 degrees. Strength: Ankle: 5/5, Knee: 5/5, Hip: 4/5 throughout, Core: fair. Flex: HS: moderate Gastroc: moderate Goal 1:: Patient will be I with HEP and progression Goal Progress: Goal Met Goal 2:: Patient will SLS for 30 sec without LOB Goal Progress: Goal Met Goal 3:: Patient will report return to all normal ADL's and recreational activities without feeling unstable Goal Progress: Goal Met Plan: Discharge to HEP given today If there are questions or concerns regarding this patient's physical therapy, please feel free to call me at [phone]. Thank you for the referral of this patient. Sincerely, Katharine Dior, LOGANT Balance/Gait/Functional tests - Balance/Special Test Scores Lower Extremity Functional Score: 64
== END 2021-05-08 10:48 | disposition home or self-care (01) ==
LOC: PT 10:00
PROVIDERS: PCP Family Medicine; Referring Provider Podiatrist; Visit Provider Podiatrist
DX: M19.072 Primary osteoarthritis, left ankle and foot (principal); M25.372 Other instability, left ankle
CPT/HCPCS: 97110; 97161; 97164

== ENCOUNTER → 2021-07-09 | Outpatient (CLI) | payer MEDICARE, OTHER, SELFPAY | END | disposition home or self-care (01) | LOC: LABSPEC 15:11 | PROVIDERS: PCP Family Medicine; Visit Provider Otolaryngology Otolaryngology/Facial Plastic Surgery | DX: J32.8 Other chronic sinusitis (principal); R09.81 Nasal congestion | CPT/HCPCS: 87070; 87205 ==

== ENCOUNTER → 2021-10-15 | Outpatient (CLI) | payer MEDICARE, OTHER, SELFPAY ==
[2021-10-15 12:08] LABS: Absolute Lymphocyte Count 1.11 X10^3/uL (0.83-4.51); Absolute Neutrophil Count 3.8 X10^3/uL (2.0-7.7); Basophil# 0.03 X10^3/uL; Basophil% 0.5 % (0-1); Hematocrit 43.6 % (37-47); Hemoglobin 14.2 g/dL (12.0-15.0); Lymphocyte # 1.11 X10^3/ul (0.83-4.51); Lymphocyte % 18.7 % (19-41); Mean Corp Hgb Conc 32.6 g/dL (32-36); Mean Corpuscular Hgb 29.8 pg (27.0-32.0); Mean Corpuscular Volume 91.6 fL (81-99); Monocyte# 0.66 X10^3/uL; Monocyte% 11.1 % (0-10); NRBC Flagged by Analyzer 0 % (0-5); Neutrophil # 3.83 X10^3/uL (2.7-7.7); Neutrophil % 64.4 % (47-70); Platelet Count 433 K/mm3 (150-450); RBC Distribution Width CV 12.6 % (11.6-14.6); RBC Distribution Width SD 42.3 fl (35.1-43.9); Red Blood Count 4.76 M/mm3 (4.2-5.4)
[2021-10-15 12:26] LABS: ALB/GLOB Ratio 0.8 RATIO (0.9-2.4); AST(SGOT) 23 U/L (15-37); Alanine Aminotransfer ALT/SGPT 23 U/L (13-56); Albumin, Serum 3.5 g/dL (3.2-5.0); Alkaline Phosphatase 60 U/L (45-117); Anion Gap 4 (5-15); BUN 11 mg/dL (7-18); BUN/Creat Ratio 15.8 RATIO (10-20); Chloride 101 mmol/L (98-107); Cholesterol 199 mg/dL (200); EST Glomerular Filtration Rate 87 mL/min (>60); Est Glom Filt Rate - Afr Amer 105 mL/min (>60); Globulin 4.3 g/dL (2.2-4.2); Glucose 92 mg/dL (74-106); High Density Lipoprotein 99 mg/dL; Magnesium 2.3 mg/dL (1.6-2.6); Potassium 3.8 mmol/L (3.5-5.1); Protein, Total 7.8 g/dL (6.4-8.2); Sodium Level 135 mmol/L (136-145); Thyroid Stim Hormone (TSH) 1.39 uIU/mL (0.358-3.74); Triglycerides 48 mg/dL; Very Low Density Lipoprotein 10 mg/dL (5-40); Vitamin D,25 Hydroxy 44.1 ng/mL
== END | disposition home or self-care (01) ==
LOC: MTLAB 09:53
PROVIDERS: PCP Family Medicine; Referring Provider Family Medicine; Visit Provider Family Medicine
DX: Z00.00 Encounter for general adult medical examination without abnormal findings (principal); J44.9 Chronic obstructive pulmonary disease, unspecified; M81.0 Age-related osteoporosis without current pathological fracture
CPT/HCPCS: 36415; 80053; 80061; 82306; 83735; 84443; 85025

== ENCOUNTER → 2021-11-20 | Outpatient (CLI) | payer MEDICARE, OTHER, SELFPAY ==
[2021-11-20 10:57] VITALS: BP 111/63; PULSE 74; RESP 16; TEMP 36.2; O2SAT 97; BMI 22.9
[2021-11-20] MEDS: 0.9% NaCl IVPB Med Flush (250 mL) 15 ML IV (11:03)
[2021-11-20] MEDS: Zoledronic Acid 5 MG 100 ML 300 MG IV (11:04)
[2021-11-20 11:45] VITALS: BP 118/59; PULSE 61; RESP 16; TEMP 36.3; O2SAT 98
== END | disposition home or self-care (01) ==
LOC: MEDOUTP 10:39
PROVIDERS: PCP Family Medicine; Referring Provider Family Medicine; Visit Provider Family Medicine
DX: M81.0 Age-related osteoporosis without current pathological fracture (principal)
CPT/HCPCS: 96365; J7050; A4216; J3489

== ENCOUNTER → 2021-12-15 | Outpatient (CLI) | payer MEDICARE, OTHER, SELFPAY ==
--- NOTE | 2021-12-15 15:58 | RAD_ITS ---
HISTORY: BACK PAIN. TECHNIQUE: XR Spine Lumbar Min 4 Views. COMPARISON: 04/21/2020. FINDINGS: VERTEBRAE: Vertebral body heights preserved. Degenerative changes of the posterior elements. ALIGNMENT: Chronic minimal anterolisthesis of L3-4. INTERVERTEBRAL DISCS: Mild intervertebral disc space narrowing with endplate change at L5-S1. RAD/L/S Spine Min 4 Views IMPRESSION: No acute fracture or dislocation identified in the lumbar spine. Degenerative change. Electronically Signed: Gini Lyn MD at 10:42 EDT ,
== END | disposition home or self-care (01) ==
PROVIDERS: PCP Family Medicine; Referring Provider Family Medicine; Visit Provider Family Medicine
DX: M54.50 Low back pain, unspecified (principal)
CPT/HCPCS: 72110

== ENCOUNTER 2021-12-25 13:30 | Outpatient (RCR) | payer MEDICARE, OTHER, SELFPAY ==
--- NOTE | 2021-12-03 13:22 | HP.PTEVAL ---
Patient's Visit Information ANTONIO KANG is a 76 year old F referred to Physical Therapy by Dr. Edwardo Petit MD with a diagnosis of leg and back pain. Date of Evaluation: 12/03/21 Physical Therapist: IRENA Cotton - Visit Plan Frequency: 2x /Week Duration: 3 Weeks Plan: 2X/ week for 6 weeks for neutral spine core stability, LE and postural exercises, piriformis and IT band stretches with HEP. HEP: PT, PT with hip march, PT with ball squeeze - Subjective Back and leg pain for about a month now. 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 She has her own HP routine. Has seen Dr Donis and felt better with adjustments and then it traveled to the R side and then referred down the leg and on anti-inflamm at night for a week and sees Dr Donis on Tuesday. Currently her pain is not bad cause she is on the anti-inflamm. She can walk normally now. Prior to anti-inflamm she had pain on the L lateral side and down the ambrocio to the uncle and then it shifted to the right side. She is not having down the leg pain currently. SHe can sit for awhile and stand for awhile but it has to change position to make it feel better. She does elliptical and recumbant bike and TM. She does leg press, leg ext and HS curls and hip abd and add, pulleys, free weights for her arms, sit to stands, seated flexion with a weight with no pain, ankle and balance stuff, Rebounder - Pain back pain Pain Intensity (Out of 10): 1 - Objective Gait: Walks with increase stance time on the R LE, she feels some R anterior groin pain with walking. R hip flex 11.6# and L hiop flex12.2#. R knee ext 16.7# and L knee ext 17#. R knee flex 15.2# and R knee ext 9#. Trunk AROM: flexion 75%, Ext 25%, Sb B 50%, Rot B 50%. -SLR, good HS flexibility. some L piriformis tightness. Pt has limited IR on the L compared to the R... with piriformis stretching on the L she feels it more in the groin than than on the R side. - Balance/Special Test Scores Oswestry Low Back Score: 9 - Goals Goal 1:: I HEP and make sure pt is using her core during her H&[employer] gym routine Goal Time Frame: 4-6 Weeks Goal 2:: Decrease back and leg pain to 0/10 with walking and ADL's Goal Time Frame: 4-6 Weeks Goal 3:: Be able to walk with feeling less stiffness/restriction in her R hip Goal Time Frame: 4-6 Weeks - Rehabilitation Potential Rehabilitation Potential: Good - Anticipated Interventions Patient/Client Instruction: Educate patient on: Condition, Plan of Care For the Purpose of:: To decrease pain, To increase ROM, To improve nutrient delivery to tissue, To improve muscle performance and motor function, To improve ability to perform ADL's, To increase tolerance to activity/condition/position, To improve performance and independence with ADL's, To improve ability of physical actions for home/community/work/leisure, To improve gait and locomotor functions, To improve health of tissue, To decrease soft tissue restriction, To increase flexibility/ROM Therapeutic Exercise to Include: Strength training, Body mechanics, Postural training, Flexibilty training, Active ROM, Dynamic Lumbar Stabilization For the Purpose of:: To decrease pain, To improve nutrient delivery to tissue, To increase oxygenation perfusion, To improve muscle performance and motor function, To improve ability to perform ADL's, To increase tolerance to activity/condition/position, To improve performance and independence with ADL's, To decrease level of supervision to perform tasks, To improve ability of physical actions for home/community/work/leisure, To improve gait and locomotor functions, To improve health of tissue, To decrease soft tissue restriction, To increase flexibility/ROM Thank you for the opportunity to evaluate your patient. For Medicare and Medicare HMO plans, please review the plan of care and approve it. It will need to be FAXED BACK to us at [phone] for Medicare purposes. For Medicare only, by signing this I certify the plan of care. Please let me know if there are questions or concerns regarding this plan of care. Physician Signature: Date:
--- NOTE | 2022-02-05 08:31 | HP.PTDCSUM ---
It has been my pleasure to treat ANTONIO KANG referred by Dr. Edwardo Petit MD, with the diagnosis of leg and back pain for a total of 7 visit(s). Discharge Date: 02/05/22 Please see the following information for a summary of their discharge status. Subjective: Taking anti- inflamm past 2 days. Pt reports walking better. Overall feels pain is decreased in freq and intensity. Walking a lot. Feels ready for d/c back pain Pain Intensity (Out of 10): 4 R leg pain Pain Intensity (Out of 10): 4 % Improvement: 75 Objective/Function: Pt has a good gym routine that consists of: LP, hip abd/add. knee flex/ext. tricep/bicep pulls. walking/recumbant bike - Also has a good HEP-see HEP section. D/C from PT today- will cont with gym/home program. Goal 1:: I HEP and make sure pt is using her core during her H&W gym routine Goal 2:: Decrease back and leg pain to 0/10 with walking and ADL's Goal 3:: Be able to walk with feeling less stiffness/restriction in her R hip Plan: ADD strap quad stretch. 2X/ week for 6 weeks for neutral spine core stability, LE and postural exercises, piriformis and IT band stretches with HEP. HEP: PT, PT with hip march, PT with ball squeeze Discharge Comments: DC PT If there are questions or concerns regarding this patient's physical therapy, please feel free to call me at [phone]. Thank you for the referral of this patient. Sincerely, Adrianna Oliva, MPT Balance/Gait/Functional tests - Balance/Special Test Scores Oswestry Low Back Score: 17
== END 2021-12-25 19:00 | disposition home or self-care (01) ==
LOC: PT 13:30
PROVIDERS: PCP Family Medicine; Referring Provider Family Medicine; Visit Provider Family Medicine
DX: M79.606 Pain in leg, unspecified (principal); M54.50 Low back pain, unspecified
CPT/HCPCS: 97110; 97161; 97530

== ENCOUNTER → 2022-02-22 | Outpatient (CLI) | payer MEDICARE, OTHER, SELFPAY ==
--- NOTE | 2022-02-22 15:22 | US_ITS ---
INDICATION: ABN BLEED EXAMINATION: Ultrasound US Pelvis Non-OB Complete TECHNIQUE: Transabdominal and transvaginal pelvic ultrasound was performed. Grayscale, spectral waveform, and color flow Doppler evaluation of the adnexa. COMPARISON: None. FINDINGS: UTERUS: Anteverted. The uterus measures 6.2 x 3.7 x 2.4 cm.. There is no uterine mass. The endometrial stripe measures 3 mm in AP diameter which is within normal limits. RIGHT OVARY: Not visualized on exam. LEFT OVARY: 0.8 x 1.0 x 0.9 cm. Non-enlarged, normal echogenicity. There is normal arterial inflow and venous outflow present in the left ovary. FREE FLUID: None. US/Pelvic (Non ) IMPRESSION: No evidence of acute pelvic process by ultrasound. Nonvisualized right ovary. Electronically Signed: Mani Metz DO at 17:16 EST ,
== END | disposition home or self-care (01) ==
LOC: US 15:21
PROVIDERS: PCP Family Medicine; Referring Provider Urology; Visit Provider Urology
DX: N93.9 Abnormal uterine and vaginal bleeding, unspecified (principal)
CPT/HCPCS: 76856

== ENCOUNTER → 2022-03-02 | Outpatient (CLI) | payer MEDICARE, OTHER, SELFPAY | END | disposition home or self-care (01) | LOC: LABSPEC 12:43 | PROVIDERS: Visit Provider Family Medicine | DX: R39.9 Unspecified symptoms and signs involving the genitourinary system (principal) | CPT/HCPCS: 87077; 87086; 87088; 87186 ==

== ENCOUNTER → 2022-03-10 | Outpatient (CLI) | payer MEDICARE, OTHER, SELFPAY ==
--- NOTE | 2022-03-10 11:17 | US_ITS ---
EXAM: US PELVIS TRANSVAGINAL CLINICAL INDICATION: BLEEDING TECHNIQUE: Transvaginal pelvic ultrasound was performed with grayscale and color Doppler imaging. Transvaginal imaging was used for better evaluation of the endometrium and adnexa. This report was created using [employer] technology. COMPARISON: None. FINDINGS: UTERUS/CERVIX: Uterus measures 3.8 x 3.4 x 2.2 cm. Endometrial thickness is 2 mm. No evidence of uterine mass. RIGHT OVARY: Right ovary measures 1.2 x 1.1 x 0.6 cm. Blood flow is present in the right ovary. LEFT OVARY: Left ovary measures 1.2 x 1.9 x 1.3 cm. Blood flow is present in the left ovary. FREE FLUID: No adnexal mass or free pelvic fluid. BLADDER: Empty bladder which cannot be evaluated with this probe. US/Transvaginal Non- IMPRESSION: Normal pelvic ultrasound for the patient''s age. Electronically Signed: Roel Esteban MD at 15:07 EST ,
== END | disposition home or self-care (01) ==
LOC: US 11:15
PROVIDERS: PCP Family Medicine; Referring Provider Urology; Visit Provider Urology
DX: N93.9 Abnormal uterine and vaginal bleeding, unspecified (principal)
CPT/HCPCS: 76830

== ENCOUNTER → 2022-04-08 | Outpatient (CLI) | payer MEDICARE, OTHER, SELFPAY | END | disposition home or self-care (01) | PROVIDERS: PCP Family Medicine; Referring Provider Family Medicine; Visit Provider Family Medicine | DX: R19.7 Diarrhea, unspecified (principal) | CPT/HCPCS: 87493 ==

== ENCOUNTER → 2022-04-20 | Outpatient (CLI) | payer MEDICARE, OTHER, SELFPAY ==
[2022-04-20 17:57] LABS: Absolute Lymphocyte Count 1.57 X10^3/uL (0.83-4.51); Absolute Neutrophil Count 4.6 X10^3/uL (2.0-7.7); Basophil# 0.04 X10^3/uL; Basophil% 0.6 % (0-1); Eosinophil# 0.32 X10^3/uL; Eosinophils% 4.5 % (0-5); Hematocrit 41.6 % (37-47); Hemoglobin 13.4 g/dL (12.0-15.0); Lymphocyte # 1.57 X10^3/ul (0.83-4.51); Mean Corp Hgb Conc 32.2 g/dL (32-36); Mean Corpuscular Hgb 29.9 pg (27.0-32.0); Mean Corpuscular Volume 92.9 fL (81-99); Mean Platelet Vol. 9.3 fl (6.2-12.0); Monocyte# 0.56 X10^3/uL; Monocyte% 7.8 % (0-10); NRBC Flagged by Analyzer 0 % (0-5); Neutrophil # 4.64 X10^3/uL (2.7-7.7); Neutrophil % 64.8 % (47-70); Platelet Count 369 K/mm3 (150-450); RBC Distribution Width CV 12.8 % (11.6-14.6); RBC Distribution Width SD 43.4 fl (35.1-43.9); Red Blood Count 4.48 M/mm3 (4.2-5.4); White Blood Count 7.2 K/mm3 (4.4-11.0)
[2022-04-20 18:20] LABS: ALB/GLOB Ratio 1.2 RATIO (0.9-2.4); AST(SGOT) 17 U/L (15-37); Alanine Aminotransfer ALT/SGPT 18 U/L (13-56); Albumin, Serum 3.8 g/dL (3.2-5.0); Alkaline Phosphatase 44 U/L (45-117); Anion Gap 8 (5-15); BUN 15 mg/dL (7-18); BUN/Creat Ratio 22.1 RATIO (10-20); Calcium,Total 9.7 mg/dL (8.5-10.1); Chloride 96 mmol/L (98-107); Creatinine, Serum 0.68 mg/dL (0.55-1.02); EST Glomerular Filtration Rate 90 mL/min (>60); Est Glom Filt Rate - Afr Amer 108 mL/min (>60); Globulin 3.3 g/dL (2.2-4.2); Glucose 112 mg/dL (74-106); Lipase 122 U/L (73-393); Potassium 4.2 mmol/L (3.5-5.1); Protein, Total 7.1 g/dL (6.4-8.2); Sodium Level 135 mmol/L (136-145)
== END | disposition home or self-care (01) ==
LOC: MFPLAB 14:05
PROVIDERS: PCP Family Medicine; Referring Provider Family Medicine; Visit Provider Family Medicine
DX: R19.4 Change in bowel habit (principal)
CPT/HCPCS: 36415; 80053; 83690; 85025

== ENCOUNTER 2022-05-25 13:14 | Outpatient (RCR) | payer MEDICARE, OTHER, SELFPAY | END 2022-05-25 13:16 | disposition home or self-care (01) | LOC: PT 13:14 | PROVIDERS: PCP Family Medicine; Referring Provider Podiatrist; Visit Provider Podiatrist | DX: M76.62 Achilles tendinitis, left leg (principal) ==

== ENCOUNTER → 2022-06-04 | Outpatient (CLI) | payer MEDICARE, OTHER, SELFPAY ==
--- NOTE | 2022-06-04 15:52 | MRI_ITS ---
STUDY: MRI LUMBAR SPINE WITHOUT CONTRAST REASON FOR EXAM: Female, 77 years old. LOW BACK PAIN Technologist Notes Other, LOW BACK PAIN RADIATING INTO LEFT BUTTOCK. ALSO HAS PAIN ALONG LATERAL SIDE OF DISTAL TIB-FIB. NO KNOWN INJURY. XT LUMBAR 12/15/21;CT ABD 2014;SACRUM-COCCYX XR 2014;( MR LUMBAR 2011 NOT AVAILABLE) TECHNIQUE: Standardized fat and water weighted pulse sequences were obtained in the sagittal and axial planes. COMPARISON: X-ray the lumbar spine dated December 15, 2021 FINDINGS: There is straightening of the normal lumbar lordosis. There is no substantial scoliosis. Normal conus medullaris that terminates at the L1 level. No marrow edema or fracture or compression deformity is seen. T12-L1: Normal endplates. Normal disc height, hydration and morphology. Normal bilateral facet joints. Normal central canal and bilateral lateral recesses. Normal bilateral intervertebral neural foramina. L1-2: Normal endplates. Diffuse disc desiccation with mild disc space narrowing as well as a midline to right paracentral shallow disc protrusion Normal disc height and morphology. Normal bilateral facet joints. Normal central canal and bilateral lateral recesses. Normal bilateral intervertebral neural foramina. L2-3: Normal endplates. Diffuse disc desiccation. Normal disc height and morphology. Normal bilateral facet joints. Normal central canal and bilateral lateral recesses. Normal bilateral intervertebral neural foramina. L3-4: Slight anterolisthesis of L3 on L4. Diffuse disc desiccation. Normal endplates. Mild asymmetric disc space narrowing.. Mild to moderate facet joint and ligament of flavum hypertrophy results in mild central canal stenosis as well as right lateral recess stenosis with nerve root compression. Superimposed right proximal foraminal shallow disc protrusion. Normal bilateral intervertebral neural foramina. L4-5: Normal endplates. Diffuse disc desiccation with mild disc space narrowing and annular bulging and endplate spurring. Moderate facet joint hypertrophy and mild fluid distention. Left anterior facet joint extruded cyst measures 8.5 mm and causes left lateral recess stenosis with nerve root compression and contributes to mild central canal stenosis. Mild bilateral foraminal stenosis. L5-S1: Normal endplates. Diffuse disc desiccation. Shallow midline to left paracentral disc protrusion. Mild to moderate facet joint hypertrophy and degeneration joints. Normal central canal and bilateral lateral recesses. Normal bilateral intervertebral neural foramina. Normal visualized sacral ala. There is mild paraspinal muscular atrophy. MRI/Spine Lumbar (Routine) IMPRESSION: 1. Multilevel degenerative changes, as described above. 2. L4-L5 moderate facet joint hypertrophy and mild fluid distention. Left anterior facet joint extruded cyst measures 8.5 mm and causes left lateral recess stenosis with nerve root compression and contributes to mild central canal stenosis. Electronically Signed: Chris Ritchie MD at 11:18 EDT ,
== END | disposition home or self-care (01) ==
LOC: MRI 15:32
PROVIDERS: PCP Family Medicine; Referring Provider Family Medicine; Visit Provider Family Medicine
DX: M54.50 Low back pain, unspecified (principal)
CPT/HCPCS: 72148

== ENCOUNTER → 2022-06-22 | Outpatient (CLI) | payer MEDICARE, OTHER, SELFPAY | END | disposition home or self-care (01) | LOC: LABSPEC 09:35 | PROVIDERS: PCP Family Medicine; Visit Provider Family Medicine | DX: R39.9 Unspecified symptoms and signs involving the genitourinary system (principal) | CPT/HCPCS: 87086; 87088 ==

== ENCOUNTER → 2022-06-23 | Outpatient (CLI) | payer MEDICARE, OTHER, SELFPAY ==
[2022-06-23 16:50] LABS: CRP < 2.90 mg/L (0.0-3.0)
[2022-06-25 16:09] LABS: Endomysial Antibody IgA Negative (Negative); Immunoglobulin A 223 mg/dL (64-422); t-Transglutaminase IgA <2 U/mL (0-3)
== END | disposition home or self-care (01) ==
LOC: MTLAB 14:53
PROVIDERS: PCP Family Medicine; Referring Provider Internal Medicine Gastroenterology; Visit Provider Internal Medicine Gastroenterology
DX: R19.7 Diarrhea, unspecified (principal)
CPT/HCPCS: 36415; 82784; 83516; 86140; 86255

== ENCOUNTER → 2022-08-04 | Outpatient (CLI) | payer MEDICARE, OTHER, SELFPAY | END | disposition home or self-care (01) | LOC: LABSPEC 15:26 | PROVIDERS: PCP Family Medicine; Referring Provider Family Medicine; Visit Provider Family Medicine | DX: N39.0 Urinary tract infection, site not specified (principal) | CPT/HCPCS: 87077; 87086; 87088; 87186 ==

== ENCOUNTER 2022-10-21 07:29 | Outpatient (CLI) | payer MEDICARE, OTHER, SELFPAY ==
[2022-10-21 10:42] LABS: Absolute Lymphocyte Count 1.63 X10^3/uL (0.83-4.51); Absolute Neutrophil Count 2.9 X10^3/uL (2.0-7.7); Basophil# 0.04 X10^3/uL; Basophil% 0.8 % (0-1); Eosinophil# 0.18 X10^3/uL; Eosinophils% 3.4 % (0-5); Hematocrit 44.3 % (37-47); Hemoglobin 14.5 g/dL (12.0-15.0); Lymphocyte # 1.63 X10^3/ul (0.83-4.51); Lymphocyte % 31.1 % (19-41); Mean Corp Hgb Conc 32.7 g/dL (32-36); Mean Corpuscular Hgb 30.1 pg (27.0-32.0); Mean Corpuscular Volume 91.9 fL (81-99); Mean Platelet Vol. 9.2 fl (6.2-12.0); Monocyte# 0.47 X10^3/uL; NRBC Flagged by Analyzer 0 % (0-5); Neutrophil % 55.3 % (47-70); Platelet Count 352 K/mm3 (150-450); RBC Distribution Width CV 12.5 % (11.6-14.6); RBC Distribution Width SD 42.5 fl (35.1-43.9); Red Blood Count 4.82 M/mm3 (4.2-5.4); White Blood Count 5.2 K/mm3 (4.4-11.0)
[2022-10-21 11:12] LABS: ALB/GLOB Ratio 0.9 RATIO (0.9-2.4); AST(SGOT) 18 U/L (15-37); Alanine Aminotransfer ALT/SGPT 20 U/L (13-56); Albumin, Serum 3.6 g/dL (3.2-5.0); Alkaline Phosphatase 52 U/L (45-117); Anion Gap 5 (5-15); BUN 12 mg/dL (7-18); BUN/Creat Ratio 17.4 RATIO (10-20); CRP < 2.90 mg/L (0.0-3.0); Calcium,Total 9.4 mg/dL (8.5-10.1); Chloride 101 mmol/L (98-107); Cholesterol 228 mg/dL (200); Creatinine, Serum 0.69 mg/dL (0.55-1.02); EST Glomerular Filtration Rate 88 mL/min (>60); Est Glom Filt Rate - Afr Amer 107 mL/min (>60); Globulin 3.9 g/dL (2.2-4.2); Glucose 84 mg/dL (74-106); High Density Lipoprotein 93 mg/dL; Magnesium 2.1 mg/dL (1.6-2.6); Potassium 3.5 mmol/L (3.5-5.1); Protein, Total 7.5 g/dL (6.4-8.2); Sodium Level 136 mmol/L (136-145); Triglycerides 53 mg/dL; Very Low Density Lipoprotein 11 mg/dL (5-40)
[2022-10-21 21:41] LABS: Vitamin D,25 Hydroxy 25.9 ng/mL
[2022-10-22 08:03] LABS: PTHIN 40.1 pg/mL (18.4-80.1)
== END 2022-10-21 23:59 | disposition home or self-care (01) ==
LOC: MTLAB 07:31
PROVIDERS: PCP Family Medicine; Visit Provider Family Medicine
DX: K52.839 Microscopic colitis, unspecified (principal); Z13.220 Encounter for screening for lipoid disorders; M81.0 Age-related osteoporosis without current pathological fracture
CPT/HCPCS: 36415; 80053; 80061; 82306; 83735; 83970; 85025; 86140

== ENCOUNTER → 2022-11-02 | Outpatient (CLI) | payer MEDICARE, OTHER, SELFPAY ==
--- NOTE | 2022-11-02 14:24 | BI_ITS ---
MAMMOGRAPHY - BILATERAL SCREENING REASON FOR EXAM: Female, 77 years old. Routine annual screening examination. PERTINENT HISTORY: Non-contributory. TECHNIQUE: Digital bilateral breast freddie (3D mammographic acquisition) in the CC and MLO projections. 2-D mediolateral oblique (MLO) and craniocaudad (CC) views of both breasts were obtained. CAD: Full Field Digital Mammography with Computer Added Detection was performed. COMPARISON: Comparison is made with prior study dated October 30, 2020 and October 25, 2018. FINDINGS: Breast Composition: The breasts are heterogeneously dense, which may obscure small masses. There are no dominant masses or suspicious calcifications. No other significant abnormalities are identified. There has been no significant change since the prior study. BI/SCRN MAMM (CAD)W/FREDDIE BILAT IMPRESSION: Stable bilateral screening mammogram. Yearly follow-up mammogram recommended. (A) ASSESSMENT CATEGORY: BIRADS Category 1: Negative. A letter regarding these results will be sent to the patient by the facility within 30 days. Approximately 10% of breast cancers are not detected by mammography. A normal mammogram should not delay biopsy of a clinically suspicious abnormality. [id number] Electronically Signed: Juanpablo Duran MD at 10:50 EDT ,
--- NOTE | 2022-11-02 14:29 | BD_ITS ---
STUDY: DUAL ENERGY X-RAY ABSORPTIOMETRY / DXA REASON FOR EXAM: Female, 77 years old. [id number] TECHNIQUE: Bone Mineral Density (BMD) measurements of lumbar spine and bilateral hips were obtained. COMPARISON: Comparison is made with prior study dated October 30, 2020. FINDINGS: Lumbar Spine (L1-L4): g/cm2 (0.894) / T-score (-1.4) / Z-score (1.1) Findings are suggestive of osteopenia with a low fracture risk. Left Femur Total: g/cm2 (0.881) / T-score (-0.5) / Z-score (1.3) Left Femoral Neck: g/cm2 (0.847) / T-score (0.0) / Z-score (2.1) Right Femur Total: g/cm2 (0.819) / T-score (-1.0) / Z-score (0.8) Right Femoral Neck: g/cm2 (0.727) / T-score (-1.1) / Z-score (1.0) The T-Scores on the most recent prior examination were: Lumbar Spine (L1-L4): There has been improvement of bone density since the previous examination. Left Femur Total: which represents an improvement of 7%. Right Femur Total: which represents an improvement of 2.5%. BD/Dexa Bone Density Study IMPRESSION: The patient is considered osteopenic as outlined below according to World [employer] Organization (WHO) criteria with a low fracture risk. There has been improvement of bone density since the previous examination. Reference Information: The T-score is the number of standard deviations above or below the standard which is normal for young adults at their peak bone mineral density. The World Health Organization (WHO) interprets the T-scores as follows: Above -1 Normal bone density Between -1 and -2.5 Osteopenia Equal to / or below -2.5 Osteoporosis As a practical clinical guideline, osteopenia may be graded as follows: Mild -1 through -1.5 Moderate -1.6 through -2.0 Severe -2.1 through -2.4 The Z-score is the number of standard deviations above or below age-matched controls. A Z-score of less than -1.5 would be considered abnormal. References: 1. NIH Osteoporosis and Related Bone Diseases www osteo.org 2. International Society for Clinical Densitometry www iscd.org 3. National Osteoporosis Foundation www nof.org Electronically Signed: Juanpablo Duran MD at 14:56 EDT ,
== END | disposition home or self-care (01) ==
LOC: OPBD 14:23
PROVIDERS: PCP Family Medicine; Referring Provider Nurse Practitioner Family; Visit Provider Nurse Practitioner Family
DX: Z12.31 Encounter for screening mammogram for malignant neoplasm of breast (principal); M81.0 Age-related osteoporosis without current pathological fracture
CPT/HCPCS: 77063; 77067; 77080

== ENCOUNTER → 2022-11-22 | Outpatient (CLI) | payer MEDICARE, OTHER, SELFPAY ==
[2022-11-22 12:33] LABS: ALB/GLOB Ratio 0.8 RATIO (0.9-2.4); AST(SGOT) 11 U/L (15-37); Alanine Aminotransfer ALT/SGPT 16 U/L (13-56); Albumin, Serum 3.3 g/dL (3.2-5.0); Alkaline Phosphatase 51 U/L (45-117); Anion Gap 5 (5-15); BUN 13 mg/dL (7-18); Calcium,Total 8.8 mg/dL (8.5-10.1); Chloride 98 mmol/L (98-107); Creatinine, Serum 0.68 mg/dL (0.55-1.02); EST Glomerular Filtration Rate 89 mL/min (>60); Est Glom Filt Rate - Afr Amer 107 mL/min (>60); Globulin 3.9 g/dL (2.2-4.2); Glucose 67 mg/dL (74-106); Potassium 3.7 mmol/L (3.5-5.1); Protein, Total 7.2 g/dL (6.4-8.2); Sodium Level 136 mmol/L (136-145)
[2022-11-22 12:40] LABS: Vitamin D,25 Hydroxy 37.6 ng/mL
== END | disposition home or self-care (01) ==
PROVIDERS: PCP Family Medicine; Referring Provider Family Medicine; Visit Provider Family Medicine
DX: E55.9 Vitamin D deficiency, unspecified (principal)
CPT/HCPCS: 36415; 80053; 82306

== ENCOUNTER 2022-11-24 13:52 | Outpatient (CLI) | payer MEDICARE, OTHER, SELFPAY ==
[2022-11-24 14:05] VITALS: BP 114/57; PULSE 75; RESP 16; TEMP 36.4; O2SAT 98
[2022-11-24] MEDS: 0.9% NaCl Peripheral Flush Adult/Peds IV (14:10)
[2022-11-24] MEDS: Zoledronic Acid 5 MG 100 ML 300 MG IV (14:17)
[2022-11-24 14:41] VITALS: BP 109/51; PULSE 72; RESP 16; TEMP 36.4; O2SAT 96
== END 2022-11-24 13:53 | disposition home or self-care (01) ==
LOC: MEDOUTP 13:53
PROVIDERS: PCP Family Medicine; Referring Provider Nurse Practitioner Family; Visit Provider Nurse Practitioner Family
DX: M81.0 Age-related osteoporosis without current pathological fracture (principal)
CPT/HCPCS: 96365; A4216; J3489

== ENCOUNTER → 2023-01-21 | Outpatient (CLI) | payer MEDICARE, OTHER, SELFPAY | END | disposition home or self-care (01) | PROVIDERS: PCP Internal Medicine; Referring Provider Internal Medicine; Visit Provider Internal Medicine | DX: R00.2 Palpitations (principal); I25.10 Atherosclerotic heart disease of native coronary artery without angina pectoris | CPT/HCPCS: 78452; 93017; 93225; 93226; A9500; A4216 ==

== ENCOUNTER 2023-02-26 19:58 | Emergency (ER) | payer MEDICARE, OTHER, SELFPAY ==
[2023-02-26 19:58] VITALS: BP 142/77; PULSE 101; RESP 16; TEMP 36.4; O2SAT 97
--- NOTE | 2023-02-26 20:22 | EKG12_ITS ---
Test Reason : PALPITATIONS Blood Pressure : / mmHG Vent. Rate : 101 BPM Atrial Rate : 101 BPM P-R Int : 194 ms QRS Dur : 072 ms QT Int : 334 ms P-R-T Axes : 071 042 058 degrees QTc Int : 433 ms Sinus tachycardia with Fusion complexes Nonspecific T wave abnormality Abnormal ECG Confirmed by TREVA LEAHY, EMILY ([id number]), manager editorial JOANIE BEATTY ([id number]) on 03/08/2023 9:06:12 AM Referred By: JAVIER Confirmed By:EMILY TILLEY MD
--- NOTE | 2023-02-26 20:31 | EX.ED.DYSGE1 ---
HPI <CHAGO Barton - Last Filed: 02/26/23 21:06> History of Present Illness Chief Complaint: Palpitations Narrative Narrative: Around 6:30 PM patient ate dinner and then developed epigastric discomfort that felt like indigestion and palpitations where she felt her heart beating strongly. She felt her pulse and it seemed irregular. She had no chest pain or shortness of breath. Symptoms resolved within an hour. She states she had an exercise stress test a couple weeks ago which was normal and a 2-day Holter monitor which showed occasional PVCs. PFSH <CHAGO Barton - Last Filed: 02/26/23 21:06> [facility] Medical History Anxiety Diarrhea Diverticulosis of colon GERD (gastroesophageal reflux disease) History of reactive hypoglycemia History of UTI Osteoporosis Home Medications diclofenac sodium 1 % topical gel 100 g TP PRN PRN Pain 07/11/18 [History Last Taken Unknown] fluticasone propionate 50 mcg/actuation nasal spray,suspension 2 spray NASAL DAILY 07/11/18 [History Last Taken Unknown] L.acidoph, paracasei,B. lactis 10 billion cell capsule 1 ea PO DAILY 12/05/19 [History Last Taken Unknown] acetylcysteine 600 mg capsule 600 mg PO BID 12/05/19 [History Last Taken Unknown] ascorbic acid (vitamin C) 500 mg capsule 500 mg PO BID 12/05/19 [History Last Taken Unknown] biotin 5 mg tablet 5 mg PO DAILY 12/05/19 [History Last Taken Unknown] cholecalciferol (vitamin D3) 25 mcg (1,000 unit) tablet 1,000 unit PO DAILY 12/05/19 [History Last Taken Unknown] cod liver oil 1 ea PO TID 12/05/19 [History Last Taken Unknown] cranberry 500 mg capsule 500 mg PO BID 12/05/19 [History Last Taken Unknown] magnesium 250 mg tablet 250 mg PO DAILY 12/05/19 [History Last Taken Unknown] flunisolide 25 mcg (0.025 %) nasal spray 1 spray intranasal DAILY 04/17/20 [History Last Taken Unknown] cetirizine 10 mg tablet (Zyrtec) 10 mg PO DAILY 11/20/21 [History Last Taken Unknown] Allergy/AdvReac Type Severity Reaction Status Date / Time ciprofloxacin Allergy Intermediate Other Verified 02/26/23 20:00 amoxicillin [Amoxicillin] Allergy Hives Verified 02/26/23 20:00 clarithromycin Allergy Rash Verified 02/26/23 20:00 naproxen Allergy Hives Verified 02/26/23 20:00 nizatidine [From Axid] Allergy Hives Verified 02/26/23 20:00 Sulfa (Sulfonamide Allergy Rash Verified 02/26/23 20:00 Antibiotics) latex AdvReac Rash Verified 02/26/23 20:00 levofloxacin [From Levaquin] AdvReac Other Verified 02/26/23 20:00 Family History Other Arthritis Heart disease Hyperlipidemia Social History Smoking Status: Former smoker alcohol intake: current alcohol intake frequency: a few times a week Alcohol type: wine what type of physical activity do you participate in: walking and weight training frequency: 5-6 times per week ROS <CHAGO Barton - Last Filed: 02/26/23 21:06> ROS ED ROS Narrative Constitutional: Negative for fever, chills, malaise. CVS: Positive for palpitations. Negative for chest pain, syncope. Respiratory: Negative for shortness of breath, cough, orthopnea. GI: Negative for nausea, vomiting. EXAM <CHAGO Barton - Last Filed: 02/26/23 21:06> Physical Exam Narrative Exam Narrative: CONST: Patient sitting in no acute distress. EYES: Normal inspection. NECK: Normal inspection. RESP: No respiratory distress, CTAB. CVS: Regular rate and rhythm, no murmur, no gallop. ABD: Soft and nontender, no guarding or rebound, nondistended, no hepatosplenomegaly. SKIN: Color normal, no rash, warm, dry, intact. EXTREMITIES: Normal appearance, no pedal edema. NEURO: Oriented x4. PSYCH: Normal affect. Const Vital Signs: 02/26/23 19:58 02/26/23 19:58 02/26/23 20:58 Temperature 97.6 F L Temperature Source Temporal Pulse Rate 101 H Respiratory Rate 16 18 Respiratory Effort Normal Non-Labored Blood Pressure 142/77 H Blood Pressure Mean 98 Pulse Ox 97 Oxygen Delivery Method Room Air <Dr. Franklin Ramos MD - Last Filed: 02/26/23 21:04> Physical Exam Const Vital Signs: 02/26/23 19:58 02/26/23 19:58 02/26/23 20:58 Temperature 97.6 F L Temperature Source Temporal Pulse Rate 101 H Respiratory Rate 16 18 Respiratory Effort Normal Non-Labored Blood Pressure 142/77 H Blood Pressure Mean 98 Pulse Ox 97 Oxygen Delivery Method Room Air [facility] <CHAGO Barton - Last Filed: 02/26/23 21:06> [facility] Narrative Medical decision making narrative: Patient had palpitations and epigastric discomfort and indigestion after dinner. Symptoms lasted about an hour and have resolved. She denies chest pain or shortness of breath. Heart rate 101, otherwise normal vital signs. During my exam she is 80 bpm normal sinus rhythm on the bedside telemetry. Heart is regular with no murmurs. Lungs clear. Abdomen soft and nontender. Differential includes GERD, ACS, arrhythmia palpitations. EKG is sinus tachycardia at 101 bpm with no acute ischemic changes. CBC and BMP are unremarkable. Troponin is 8. She never had chest pain or shortness of breath so I do not think she requires serial cardiac enzymes. I also reviewed prior records which she had a negative stress test 1 month ago. Patient counseled on return precautions and discharged in stable condition. External records reviewed: 01/21/2023 Negative treadmill stress test Normal LV systolic function 48-hour Holter monitor 01/21/2023 Normal sinus rhythm/sinus arrhythmia with occasional PAC/PVCs I have personally performed a face to face assessment of the patient and have reviewed the JAY Note. I performed a substantive portion of the visit including all aspects of the following. My willis findings include: History is 78-year-old female history of palpitations prior workup unremarkable. Prior stress test a month ago unremarkable. Today had episode of palpitations. No pain. Feels well now. Exam is [well-appearing 78-year-old female. Vital signs stable afebrile. Pulse ox 97% room air no hypoxia. HEENT exam unremarkable. Lungs clear. Heart regular rhythm rate about 90 no murmur. Abdomen soft nontender. Moving all 4 extremities. Calves are nontender without edema or cords. Awake alert no focal motor deficits.] Medical Decision Making [palpitations. Cardiac workup negative. Discharged home. Outpatient follow-up as needed.] Other additions or changes: [None] Lab Data Attestation: I reviewed the patient's lab results. Labs: Laboratory Results - last 24 hr 02/26/23 20:25 WBC 7.1 RBC 4.51 Hgb 13.4 Hct 40.8 MCV 90.5 MCH 29.7 MCHC 32.8 RDW Std Deviation 40.5 RDW Coeff of Ciera 12.2 Plt Count 351 MPV 8.8 Immature Gran % (Auto) 0.300 Neut % (Auto) 58.0 Lymph % (Auto) 28.6 Bonner % (Auto) 10.7 H Eos % (Auto) 2.0 Baso % (Auto) 0.4 Absolute Neuts (auto) 4.1 Absolute Lymphs (auto) 2.03 Nucleated RBC % 0 Sodium 136 Potassium 4.1 Chloride 98 Carbon Dioxide 33.0 H Anion Gap 5 BUN 19 H Creatinine 0.72 Est GFR (MDRD) Af Amer 102 Est GFR (MDRD) Non-Af 84 BUN/Creatinine Ratio 26.5 H Glucose 112 H Calcium 9.3 Total Bilirubin 0.40 AST 19 ALT 16 Alkaline Phosphatase 42 L Troponin I High Sens 8 Total Protein 7.2 Albumin 3.6 Globulin 3.6 Albumin/Globulin Ratio 1.0 EKG Initial EKG: Attestation: I personally reviewed and interpreted this EKG as follows: Interpretation: Sinus Rhythm Comments: Sinus tachycardia at 101 bpm Nonspecific T wave abnormality, no STEMI criteria <Dr. Franklin Ramos MD - Last Filed: 02/26/23 21:04> [facility] MDM Narrative Medical decision making narrative: She had palpitations and epigastric discomfort and indigestion after dinner. Symptoms lasted about an hour and have resolved. She denies chest pain or shortness of breath. Heart rate 101, otherwise normal vital signs. During my exam she is 80 bpm normal sinus rhythm on the bedside telemetry. Heart is regular with no murmurs. Lungs clear. Abdomen soft and nontender. Differential includes GERD, ACS, arrhythmia palpitations. EKG is sinus tachycardia at 101 bpm with no acute ischemic changes. CBC and BMP are unremarkable. Troponin is 8. External records reviewed: 01/21/2023 Negative treadmill stress test Normal LV systolic function 48-hour Holter monitor 01/21/2023 Normal sinus rhythm/sinus arrhythmia with occasional PAC/PVCs I have personally performed a face to face assessment of the patient and have reviewed the JAY Note. I performed a substantive portion of the visit including all aspects of the following. My willis findings include: History is 78-year-old female history of palpitations prior workup unremarkable. Prior stress test a month ago unremarkable. Today had episode of palpitations. No pain. Feels well now. Exam is [well-appearing 78-year-old female. Vital signs stable afebrile. Pulse ox 97% room air no hypoxia. HEENT exam unremarkable. Lungs clear. Heart regular rhythm rate about 90 no murmur. Abdomen soft nontender. Moving all 4 extremities. Calves are nontender without edema or cords. Awake alert no focal motor deficits.] Medical Decision Making [palpitations. Cardiac workup negative. Discharged home. Outpatient follow-up as needed.] Other additions or changes: [None] Lab Data Labs: Laboratory Results - last 24 hr 02/26/23 20:25 WBC 7.1 RBC 4.51 Hgb 13.4 Hct 40.8 MCV 90.5 MCH 29.7 MCHC 32.8 RDW Std Deviation 40.5 RDW Coeff of Ciera 12.2 Plt Count 351 MPV 8.8 Immature Gran % (Auto) 0.300 Neut % (Auto) 58.0 Lymph % (Auto) 28.6 Bonner % (Auto) 10.7 H Eos % (Auto) 2.0 Baso % (Auto) 0.4 Absolute Neuts (auto) 4.1 Absolute Lymphs (auto) 2.03 Nucleated RBC % 0 Sodium 136 Potassium 4.1 Chloride 98 Carbon Dioxide 33.0 H Anion Gap 5 BUN 19 H Creatinine 0.72 Est GFR (MDRD) Af Amer 102 Est GFR (MDRD) Non-Af 84 BUN/Creatinine Ratio 26.5 H Glucose 112 H Calcium 9.3 Total Bilirubin 0.40 AST 19 ALT 16 Alkaline Phosphatase 42 L Troponin I High Sens 8 Total Protein 7.2 Albumin 3.6 Globulin 3.6 Albumin/Globulin Ratio 1.0 Discharge Plan Triage Chief Complaint: Palpitations ED Midlevel Provider: Asmita López ED Provider: Franklin Ramos Dx/Rx/DC Orders Clinical Impression: Palpitations Instructions: ED Palpitations Prescriptions: No Action flunisolide 25 mcg (0.025 %) spray,non-aerosol 1 spray INTRANASAL DAILY Patient Comments: 2 (TWO) SPRAY DAILY fluticasone propionate 1 SPRAY spray,suspension 2 spray NASAL DAILY diclofenac sodium 100 GM gel 100 g TP PRN PRN (Reason: Pain) cod liver oil 1 EACH capsule 1 ea PO TID magnesium 250 MG tablet 250 mg PO DAILY cranberry 500 MG capsule 500 mg PO BID cholecalciferol (vitamin D3) 1,000 UNIT tablet 1,000 unit PO DAILY biotin 5 MG tablet 5 mg PO DAILY acetylcysteine 600 MG capsule 600 mg PO BID ascorbic acid (vitamin C) 500 MG capsule 500 mg PO BID L.acidoph, paracasei,B. lactis 1 EACH capsule 1 ea PO DAILY cetirizine [Zyrtec] 10 mg Tablet 10 mg PO DAILY Primary Care Provider: Aicha Blackwood Referrals: Aicha Blackwood, [Primary Care Provider] - Activity Restrictions/Additional Instructions: Testing today looks reassuring. If symptoms change or worsen please be reevaluated. Disposition Disposition: Home, Self Care
[2023-02-26 20:36] LABS: Absolute Lymphocyte Count 2.03 X10^3/uL (0.83-4.51); Absolute Neutrophil Count 4.1 X10^3/uL (2.0-7.7); Basophil# 0.03 X10^3/uL; Basophil% 0.4 % (0-1); Eosinophil# 0.14 X10^3/uL; Hematocrit 40.8 % (37-47); Hemoglobin 13.4 g/dL (12.0-15.0); Lymphocyte # 2.03 X10^3/ul (0.83-4.51); Lymphocyte % 28.6 % (19-41); Mean Corp Hgb Conc 32.8 g/dL (32-36); Mean Corpuscular Hgb 29.7 pg (27.0-32.0); Mean Corpuscular Volume 90.5 fL (81-99); Mean Platelet Vol. 8.8 fl (6.2-12.0); Monocyte# 0.76 X10^3/uL; Monocyte% 10.7 % (0-10); NRBC Flagged by Analyzer 0 % (0-5); Neutrophil # 4.11 X10^3/uL (2.7-7.7); Platelet Count 351 K/mm3 (150-450); RBC Distribution Width CV 12.2 % (11.6-14.6); RBC Distribution Width SD 40.5 fl (35.1-43.9); Red Blood Count 4.51 M/mm3 (4.2-5.4); White Blood Count 7.1 K/mm3 (4.4-11.0)
[2023-02-26 20:53] LABS: AST(SGOT) 19 U/L (15-37); Alanine Aminotransfer ALT/SGPT 16 U/L (13-56); Albumin, Serum 3.6 g/dL (3.2-5.0); Alkaline Phosphatase 42 U/L (45-117); Anion Gap 5 (5-15); BUN 19 mg/dL (7-18); BUN/Creat Ratio 26.5 RATIO (10-20); Calcium,Total 9.3 mg/dL (8.5-10.1); Chloride 98 mmol/L (98-107); Creatinine, Serum 0.72 mg/dL (0.55-1.02); EST Glomerular Filtration Rate 84 mL/min (>60); Est Glom Filt Rate - Afr Amer 102 mL/min (>60); Globulin 3.6 g/dL (2.2-4.2); Glucose 112 mg/dL (74-106); Potassium 4.1 mmol/L (3.5-5.1); Protein, Total 7.2 g/dL (6.4-8.2); Sodium Level 136 mmol/L (136-145); Troponin-I HS 8 pg/mL (3.0-54.0)
[2023-02-26 20:58] VITALS: RESP 18
== END 2023-02-26 21:27 | disposition home or self-care (01) ==
PROVIDERS: Physician Assistant; Emergency Provider Emergency Medicine; PCP Internal Medicine; Visit Provider Emergency Medicine
DX: R00.2 Palpitations (principal); R10.13 Epigastric pain; Z87.891 Personal history of nicotine dependence; K21.9 Gastro-esophageal reflux disease without esophagitis
CPT/HCPCS: 80053; 84484; 85025; 93005; 99283

== ENCOUNTER → 2023-11-04 | Outpatient (CLI) | payer MEDICARE, OTHER, SELFPAY ==
--- NOTE | 2023-11-04 11:53 | BI_ITS ---
MAMMOGRAPHY - BILATERAL SCREENING REASON FOR EXAM: Female, 78 years old. Routine annual screening examination. PERTINENT HISTORY: Non-contributory. TECHNIQUE: Digital bilateral breast freddie (3D mammographic acquisition) in the CC and MLO projections. 2-D mediolateral oblique (MLO) and craniocaudad (CC) views of both breasts were obtained. CAD: Full Field Digital Mammography with Computer Added Detection was performed. COMPARISON: Comparison is made with prior examination dated November 02, 2022. FINDINGS: Breast Composition: The breasts are heterogeneously dense, which may obscure small masses. There are no dominant masses or suspicious calcifications. Stable small benign-appearing bilateral axillary lymph nodes. No other significant abnormalities are identified. There has been no significant change since the prior study. BI/SCRN MAMM (CAD)W/FREDDIE BILAT IMPRESSION: Stable bilateral screening mammogram. Yearly follow-up mammogram recommended. (A) ASSESSMENT CATEGORY: BIRADS Category 2: Benign. A letter regarding these results will be sent to the patient by the facility within 30 days. Approximately 10% of breast cancers are not detected by mammography. A normal mammogram should not delay biopsy of a clinically suspicious abnormality. [id number] Electronically Signed: Juanpablo Duran MD at 12:37 EDT ,
== END | disposition home or self-care (01) ==
LOC: OPBI 11:52
PROVIDERS: PCP Internal Medicine; Referring Provider Internal Medicine; Visit Provider Internal Medicine
DX: Z12.31 Encounter for screening mammogram for malignant neoplasm of breast (principal)
CPT/HCPCS: 77063; 77067

== ENCOUNTER 2024-02-09 12:00 | Outpatient (RCR) | payer MEDICARE, OTHER, SELFPAY | END 2024-02-09 14:49 | disposition home or self-care (01) | LOC: PT 12:00 | PROVIDERS: PCP Internal Medicine; Referring Provider Internal Medicine; Visit Provider Internal Medicine | DX: M54.2 Cervicalgia (principal) | CPT/HCPCS: 97035; 97110; 97162; 97530 ==

== ENCOUNTER → 2024-05-01 | Outpatient (CLI) | payer MEDICARE, OTHER, SELFPAY | END | disposition home or self-care (01) | LOC: MTLAB 15:35 | PROVIDERS: PCP Internal Medicine; Referring Provider Nurse Practitioner Acute Care; Visit Provider Nurse Practitioner Acute Care | DX: R19.7 Diarrhea, unspecified (principal); K58.9 Irritable bowel syndrome, unspecified | CPT/HCPCS: 87493; 87506 ==

== ENCOUNTER → 2024-05-04 | Outpatient (CLI) | payer MEDICARE, OTHER, SELFPAY | END | disposition home or self-care (01) | PROVIDERS: PCP Internal Medicine; Referring Provider Nurse Practitioner Acute Care; Visit Provider Nurse Practitioner Acute Care | DX: Z00.00 Encounter for general adult medical examination without abnormal findings (principal) ==

== ENCOUNTER 2024-05-29 12:07 | Outpatient (RCR) | payer SELFPAY | END 2024-06-04 23:59 | LOC: NS 12:07 | PROVIDERS: PCP Internal Medicine; Referring Provider Internal Medicine; Visit Provider Internal Medicine | DX: Z71.3 Dietary counseling and surveillance (principal); R73.01 Impaired fasting glucose; K52.839 Microscopic colitis, unspecified; I25.10 Atherosclerotic heart disease of native coronary artery without angina pectoris; K57.30 Diverticulosis of large intestine without perforation or abscess without bleeding | CPT/HCPCS: 97802 ==

== ENCOUNTER 2024-06-26 12:52 | Outpatient (RCR) | payer MEDICARE, OTHER, SELFPAY ==
--- NOTE | 2024-06-26 14:24 | HP.PTEVAL_ITS ---
Patient's Visit Information Visit Information Visit Information: ANTONIO KANG is a 79 year old F referred to Physical Therapy by Dr. Aicha Blackwood DO with a diagnosis of LBP and R hip pain. Date of Evaluation: 06/26/24 Physical Therapist: Carlos Luis, PT, ATC Visit Plan Frequency: 1x/Week Duration: 1 Week Plan: Follow up or discharge in one month. Pt is I with all core strengthening and LE stretching activity. Subjective Subjective: Pt reports she has had chronic LBP for several years. Pt notes she has had xrays and an MRI which revealed significant arthritis. Pt reports she has had PT several times in the past which always helped. Pt notes she has pain in the back still today, which will on occasion radiate down to the knee region. Pt notes she was getting off an exercise bike a few months ago when she experienced severe pain in her R hip. Pt notes the pain mostly resolved with rest and ice, but pt still gets some pain in that region. Pt reports she gets more sciatica pain in her L hip and LE at this time. Pt reports she is able to perform most of her IADL's without limitation. 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 0/10 pain while sitting here in the clinic, 3/10 pain at worst. Pt reports prolonged standing increases her pain, while sitting helps to alleviate her pain. Pain LBP and R hip: Pain Intensity (Out of 10): 0 Pain Intensity Range: 3 Objective Objective: Neuro: B LE sensation is WNL to light touch. Palpation: No pain with palpation of the R hip region. No obvious deformity noted at this time. ROM: Pt is moderately limited with L/S extension at this time. All other ranges are WNL. B hips are equal when compared bilaterally. MMT: L hip flexion= 10, abd= 19, add= 30 #F; R hip flex= 9, abd= 24, add= 31 #F Special tests: No pos hip tests this date Goals Goal 1:: Pt will be I with HEP in one visit Goal Time Frame: 1 Week Rehabilitation Potential Physical Therapy Diagnosis: Pt has LBP and R LE radiculopathy secondary to degenerative changes in the L/S Rehabilitation Potential: Good Anticipated Interventions Patient/Client Instruction: Educate patient on: Condition and Plan of Care For the Purpose of:: To improve self management Therapeutic Exercise to Include: Strength training, Endurance training, Body mechanics, Postural training and Dynamic Lumbar Stabilization For the Purpose of:: To decrease pain and To improve muscle performance and motor function Text: Thank you for the opportunity to evaluate your patient. For Medicare and Medicare HMO plans, please review the plan of care and approve it. It will need to be FAXED BACK to us at [phone] for Medicare purposes. For Medicare only, by signing this I certify the plan of care. Please let me know if there are questions or concerns regarding this plan of care. Physician Signature: Date:
--- NOTE | 2024-07-24 14:18 | HP.PT.NRP ---
Patient Information Patient Information: ANTONIO KANG was seen in my office for initial evaluation on 06/26/24. The following Plan of Care was established for this patient: POC Established Initial Frequency: 1x/Week Initial Duration: 1 Week Anticipated Interventions Patient/Client Instruction: Educate patient on: Condition and Plan of Care For the Purpose of:: To improve self management Therapeutic Exercise to Include: Strength training, Endurance training, Body mechanics, Postural training and Dynamic Lumbar Stabilization For the Purpose of:: To decrease pain and To improve muscle performance and motor function Last Seen Last Seen: This patient was last seen in our office . Pertinent comments regarding their Physical therapy will appear below: Pt returned today stating that she doesnt feel like she needs further PT. No pain and I with HEP. Pt is discharged At this point I will be discontinuing this patient from physical therapy. I would be happy to see this patient again in the future if found appropriate by the physician. Thank you! Carlos Luis, PT, ATC
== END 2024-06-26 19:00 | disposition home or self-care (01) ==
LOC: PT 12:52
PROVIDERS: PCP Internal Medicine; Referring Provider Internal Medicine; Visit Provider Internal Medicine
DX: M54.16 Radiculopathy, lumbar region (principal); M25.551 Pain in right hip
CPT/HCPCS: 97161

== ENCOUNTER → 2024-08-02 | Outpatient (CLI) | payer MEDICARE, OTHER, SELFPAY ==
--- NOTE | 2024-08-02 12:45 | CDU_ITS ---
Reason For Study Reason For Study: Dizziness and giddiness Rt. Velocities/BP Lt. Velocities/BP Prox CCA 65.5/12.6 cm/sec. Prox CCA 100.3/20.1 cm/sec. Mid CCA 66.4/16.3 cm/sec. Mid CCA 67.4/16.8 cm/sec. Dist CCA 59.8/15.4 cm/sec. Dist CCA 72.9/19 cm/sec. Prox ICA 50.9/13.5 cm/sec. Prox ICA 56.4/11.3 cm/sec. Mid ICA 66.3/20.1 cm/sec. Mid ICA 69.6/23.4 cm/sec. Dist ICA 69.8/17 cm/sec. Dist ICA 98.1/26.7 cm/sec. Rt. ICA/CCA = 1.05. Lt. ICA/CCA = 1.46. Prox ECA 93.8/11.3 cm/sec. Prox ECA 81.7/11.3 cm/sec. Rt. Vert. 35.2/9.9 cm/sec. Lt. Vert. 45.4/11.3 cm/sec. Right Extracranial There is homogeneous, smooth atherosclerotic plaque noted in the right common carotid artery. There is heterogeneous, irregular atherosclerotic plaque noted in the right internal carotid artery. There is intimal thickening but no significant atherosclerotic plaque noted in the right external carotid artery. Antegrade flow is noted in the right vertebral artery. Left Extracranial There is homogeneous, smooth atherosclerotic plaque noted in the left common carotid artery. There is heterogeneous, irregular atherosclerotic plaque noted in the left internal carotid artery. There is intimal thickening but no significant atherosclerotic plaque noted in the left external carotid artery. Antegrade flow is noted in the left vertebral artery. Procedure Carotid Duplex [id number]. This is a Carotid Duplex examination using B-mode, color flow and specral Doppler. Exam performed in department. VL/Carotid Duplex Ultrasound Interpretation Summary Mild (<50%) stenosis right extracranial internal carotid. Mild (<50%) stenosis left extracranial internal carotid. Flow within the vertebral arteries is antegrade bilaterally. Ordering Physician: Aicha Blackwood Referring Physician: Aicha Blackwood Performed By: Sarita Winter RVT
== END | disposition home or self-care (01) ==
LOC: CVS 12:44
PROVIDERS: PCP Internal Medicine; Referring Provider Internal Medicine; Visit Provider Internal Medicine
DX: R42 Dizziness and giddiness (principal)
CPT/HCPCS: 93880

== ENCOUNTER → 2024-09-06 | Outpatient (CLI) | payer MEDICARE, OTHER, SELFPAY | END | disposition home or self-care (01) | LOC: CVS 07:54 | PROVIDERS: PCP Internal Medicine; Referring Provider Internal Medicine; Visit Provider Internal Medicine | DX: I72.2 Aneurysm of renal artery (principal) | CPT/HCPCS: 93975 ==

== ENCOUNTER → 2024-11-06 | Outpatient (CLI) | payer MEDICARE, OTHER, SELFPAY ==
--- NOTE | 2024-11-06 13:56 | BI_ITS ---
EXAM: SCRN MAMM (CAD)W/FREDDIE BILAT DATE: 11/06/2024 CLINICAL HISTORY: F, Age 79 y/o , SCREENING No family history. TECHNIQUE: Procedure Code: [id number] Modality: MG Procedure: SCRN MAMM (CAD)W/FREDDIE BILAT COMPARISON: Prior exam(s) dated November 04, 2023.. FINDINGS: TISSUE DENSITY: The breasts are heterogeneously dense, which may obscure small masses. Bilateral Breast Mammographic Findings: No significant masses, calcifications or other abnormalities are identified. Stable small benign-appearing bilateral axillary lymph nodes. No suspicious masses, areas of developing architectural distortion, or suspicious calcifications. There has been no significant interval change. BI/SCRN MAMM (CAD)W/FREDDIE BILAT IMPRESSION: Stable bilateral screening mammogram. OVERALL FINAL ASSESSMENT BI-RADS 2: BENIGN RECOMMENDATION: Routine annual follow-up in 1 Year A letter with findings and recommendations will be mailed to the patient. Reading Location: [place] [id number]
--- NOTE | 2024-11-06 14:00 | BD_ITS ---
PROCEDURE: DEXA BONE DENSITY STUDY 11/06/2024 REASON FOR EXAM: F, age 79 y/o . Postmenopausal. TECHNIQUE: Procedure Code: BDDBD Modality: DX Procedure: DEXA BONE DENSITY STUDY COMPARISON: November 02, 2022. FINDINGS: BMD and T-SCORES Lumbar spine: 0.885 g/cm2, T-score -1.5 Levels: L1 through L4 Change from prior: Loss of 1%. Left femoral neck: 0.885 g/cm2, T-score 0.3 Femoral neck comparison data not recommended for monitoring change. Left total hip: 0.890 g/cm2, T-score -0.4 Change from prior: Improvement of 1.1%. Right femoral neck: 0.720 g/cm2, T-score -1.2 Femoral neck comparison data not recommended for monitoring change. Right total hip: 0.812 g/cm2, T-score -1.1 Change from prior: Loss of 0.9%. The World Health Organization has defined the following categories based on bone density: Normal bone density: T-score equal to or greater than -1.0 Osteopenia: T-score between -1.0 and -2.5 Osteoporosis: T-score equal to or less than -2.5 FRAX (or Comparable) Fracture Risk Assessment: 10 Year Probability of Fracture: Major Osteoporotic Fracture: 17% Hip Fracture: 3.1% (Note: FRAX is not to be reported in setting of normal range bone density, osteoporosis on DEXA, known history of osteoporosis, prior osteoporotic hip or vertebral fracture, or for any patient undergoing pharmacological treatment for bone loss.) The National Osteoporosis Foundation (NOF) recommends pharmacological treatment for patients with a FRAX 10-year risk of 3% or higher for a hip fracture, or 20% or higher for a major osteoporotic fracture, to prevent osteoporosis and reduce fracture risk. The patient does meet the pharmacological treatment recommendations for prevention of osteoporosis. BD/Dexa Bone Density Study IMPRESSION: OSTEOPENIA. Recommend follow-up as clinically warranted. Reading Location: [place] [id number]
== END | disposition home or self-care (01) ==
PROVIDERS: PCP Internal Medicine; Referring Provider Internal Medicine; Visit Provider Internal Medicine
DX: Z12.31 Encounter for screening mammogram for malignant neoplasm of breast (principal); Z78.0 Asymptomatic menopausal state
CPT/HCPCS: 77063; 77067; 77080

== ENCOUNTER 2024-11-19 14:00 | Outpatient (RCR) | payer MEDICARE, OTHER, SELFPAY ==
--- NOTE | 2024-10-22 10:48 | HP.PTEVAL_ITS ---
Patient's Visit Information Visit Information Visit Information: ANTONIO KANG is a 79 year old F referred to Physical Therapy by Dr. Aicha Blackwood DO with a diagnosis of Balance Issues. Date of Evaluation: 10/22/24 Physical Therapist: IRENA Cotton Visit Plan Frequency: 2x /Week Duration: 6 Weeks Plan: 2X/ week for 4-6 weeks for gait training with head turns, stepping over objects, standing on foam with EO and head turns and EC, walking on grass or uneven surfaces, LE functional strength with HEP Pt has meniere's and H/O BPPV. Subjective Subjective: Pt reports that she has had no falls in the last 6 months. She feels off balance sometimes. When it happens she will feel likes she wants to veer. In an open area where there is nothing she can touch she felt more insecure. She notices that if she turns her head too fast she will be off balance. 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 She notices that she will not walk right well if L hip is flared. She has meniers that affects her hearing. If she is walking someone she feels that she wants to walk on their L and feels more secure. If she does not sleep well then that will affect it. She has had BPPV in the past on the L ear. She can sleep on her L but her shoulder on her L is bad. Objective Objective: Gait: Walks with decreased hip ext and some increase veering. Heel and Toe raises: Pt is able to heel and toe raise LE MMT: R hip flexion 12.7 and L 10.3 R knee ext 18.5 and L 17.2 R knee flex 11.9 and L 8.7 FGA: 21 CATSIB: 85 VOR: No dizziness with smooth pursuit horizontal X 30 seconds or head and eyes move together in sitting X 30 seconds Balance/Special Test Scores Functional Gait Assessment Score: 21 % Disability: 30.0000 CATSIB Score (Max score 120 seconds): 85 Dizziness Score: 12 Goals Goal 1:: I HEP Goal Time Frame: 6-8 Weeks Goal 2:: Be able to walk with no veering with gait 100 feet Goal Time Frame: 6-8 Weeks Goal 3:: Increase balance with head turns and improve overall balance on FGA (score was 21 at eval). Goal Time Frame: 6-8 Weeks Goal 4:: Be able to walk on grass with horizontal and vertical head turns without LOB Goal Time Frame: 6-8 Weeks Goal 5:: Increase vestibular input on blue foam (increase CATSIB and score was 85 on eval) Goal Time Frame: 6-8 Weeks Rehabilitation Potential Rehabilitation Potential: Good Anticipated Interventions Patient/Client Instruction: Educate patient on: Condition and Plan of Care For the Purpose of:: To improve muscle performance and motor function, To improve ability to perform ADL's, To increase tolerance to activity/co ndition/position, To improve performance and independence with ADL's, To improve ability of physical actions for home/community/work/leisure, To improve gait and locomotor functions and To improve safety with gait Therapeutic Exercise to Include: Strength training, Endurance training, Balance training, Gait and locomotor training and "via [employer] Balance Mas For the Purpose of:: To improve muscle performance and motor function, To improve ability to perform ADL's, To improve gait and locomotor functions, To improve health of tissue, To improve endurance, To improve balance and To improve safety with gait Functional Training to Include: Gait training For the Purpose of:: To improve gait and locomotor functions and To improve safety with gait Text: Thank you for the opportunity to evaluate your patient. For Medicare and Medicare HMO plans, please review the plan of care and approve it. It will need to be FAXED BACK to us at [phone] for Medicare purposes. For Medicare only, by signing this I certify the plan of care. Please let me know if there are questions or concerns regarding this plan of care. Physician Signature: Date:
--- NOTE | 2024-11-19 14:21 | HP.PTDCSUM ---
Discharge Summary D/C summary: It has been my pleasure to treat ANTONIO KANG referred by Dr. Aicha Blackwood DO, with the diagnosis of Balance Issues for a total of 9 visit(s). Discharge Date: 11/19/24 Please see the following information for a summary of their discharge status. Subjective Subjective: Pt reports that she is alot better. She has not felt herself veering at all. She says she wants to hold on with steps still and I did encourage her to do that. Pain LBP: Pain Intensity (Out of 10): 1 Objective Objective/Function: FGA 25 CATSIB 120/120 Gait: amb with no obvious veering Goals Goal 1:: I HEP Goal Progress: Goal Met Goal 2:: Be able to walk with no veering with gait 100 feet Goal Progress: Goal Met Goal 3:: Increase balance with head turns and improve overall balance on FGA (score was 21 at eval). Goal Progress: Goal Met Goal 4:: Be able to walk on grass with horizontal and vertical head turns without LOB Goal Progress: Goal Met Goal 5:: Increase vestibular input on blue foam (increase CATSIB and score was 85 on eval) Goal Progress: Goal Met Plan Plan: DC PT to HEP D/C Information Discharge Comments: DC PT to HEP d/c sentence: If there are questions or concerns regarding this patient's physical therapy, please feel free to call me at [phone]. Thank you for the referral of this patient. Sincerely, Adrianna Oliva, MPT Balance/Gait/Functional tests Balance/Special Test Scores Functional Gait Assessment Score: 25 % Disability: 16.6700 CATSIB Score (Max score 120 seconds): 120 Dizziness Score: 12 Lower Extremity Functional Score: 55
== END 2024-11-19 19:00 | disposition home or self-care (01) ==
LOC: PT 14:00
PROVIDERS: PCP Internal Medicine; Referring Provider Internal Medicine; Visit Provider Internal Medicine
DX: R26.9 Unspecified abnormalities of gait and mobility (principal)
CPT/HCPCS: 97110; 97116; 97161; 97530

== ENCOUNTER → 2025-01-11 | Outpatient (CLI) | payer MEDICARE, OTHER, SELFPAY ==
[2025-01-11 10:06] LABS: Hematocrit 42.0 % (37-47); Hemoglobin 13.9 g/dL (12.0-15.0); Immature Granulocytes Count 0.010 X10^3/uL (0.0-0.0); Mean Corp Hgb Conc 33.1 g/dL (32-36); Mean Corpuscular Volume 88.4 fL (81-99); Mean Platelet Vol. 9.1 fl (6.2-12.0); NRBC Flagged by Analyzer 0 % (0-5); Platelet Count 339 K/mm3 (150-450); RBC Distribution Width CV 12.7 % (11.6-14.6); RBC Distribution Width SD 41.1 fl (35.1-43.9); Red Blood Count 4.75 M/mm3 (4.2-5.4); White Blood Count 4.9 K/mm3 (4.4-11.0)
[2025-01-11 10:48] LABS: AST(SGOT) 18 U/L (<=31); Alanine Aminotransfer ALT/SGPT 9 U/L (<=34); Albumin, Serum 4.2 g/dL (3.4-4.8); Alkaline Phosphatase 54 U/L (35-104); Anion Gap 9 (5-15); BUN 17 mg/dL (4-19); BUN/Creat Ratio 25.7 RATIO (10-20); Calcium,Total 9.8 mg/dL (7.6-11.0); Carbon Dioxide 29.2 mmol/L (21.0-32.0); Chloride 100 mmol/L (98-108); Cholesterol 179 mg/dL (<=200); Globulin 3.1 g/dL (2.2-4.2); Glucose 100 mg/dL (70-99); Low Density Lipoprotein Calc. 68 mg/dL; Potassium 4.1 mmol/L (3.3-5.1); Triglycerides 54 mg/dL; Very Low Density Lipoprotein 11 mg/dL (5-40); Vitamin D,25 Hydroxy 44.2 ng/mL (30-100); cholesterol:hdl ratio screen 1.79
== END | disposition home or self-care (01) ==
LOC: CIMLAB 08:38
PROVIDERS: PCP Internal Medicine; Referring Provider Internal Medicine; Visit Provider Internal Medicine
DX: R73.01 Impaired fasting glucose (principal); E78.5 Hyperlipidemia, unspecified; E55.9 Vitamin D deficiency, unspecified
CPT/HCPCS: 36415; 80053; 80061; 82306; 83036; 85025

== ENCOUNTER → 2025-01-24 | Outpatient (CLI) | payer MEDICARE, OTHER, SELFPAY ==
--- NOTE | 2025-01-24 14:15 | US_ITS ---
PROCEDURE: PELVIC (NON ) 01/24/2025 REASON FOR EXAM: ULTRASOUND, PELVIS, COMPLETE TECHNIQUE: Procedure Code: USPEL Modality: US Procedure: PELVIC (NON ) COMPARISON: March 10, 2022. FINDINGS: Measurements: Uterus: 5.9 cm x 3.7 cm x 2.2 cm with a volume of 25.7 mL Endometrial Thickness: 2 mm. It is hyperechoic. Right Ovary: Not visualized. Left Ovary: Not visualized. Uterus: Normal size, myometrial echotexture, and contour. Endometrium: Unremarkable. Right ovary: Not visualized. Left ovary: Not visualized. Other: No large pelvic mass identified. US/Pelvic (Non ) IMPRESSION: Unremarkable pelvic sonogram. The ovaries were not visualized. Reading Location: [id number]
--- OUTSIDE RECORDS SUMMARY | 2025-01-24 19:10 | XMS RPT_ITS | CCD ---
Author Organization [facility] Care Team Providers Care Wood Box Maker Name Role Phone Dr. Edwardo Petit Primary Care Provider Dr. Edwardo Petit Referring Provider 1([facility])[phone] Maite Arceo Attending Provider 1([facility]) 25 Dr. Edwardo Petit Referring Provider 1([facility])[phone] Maite Arceo Attending Provider 1([facility]) 25 Dr. Edwardo Petit Primary Care Provider 1([facility])[phone] Dr. Maite Arceo Referring Provider 1([facility]) 25 Dr. Edwardo Petit Primary Care Provider 1([facility])[phone] Dr. Edwardo Petit Referring Provider 1([facility])[phone] aMite Arceo Attending Provider 1([facility]) 25 Dr. Maite Arceo Referring Provider 1([facility]) 25 Dr. Edwardo Petit Primary Care Provider 1([facility])[phone] Dr. Edwardo Petit Referring Provider 1([facility])[phone] Maite Arceo Attending Provider 1([facility]) 25 Fast DO, Aicha A Unavailable Laura Avila MD Unavailable Elkin King Unavailable Bry LEAHY, Darin Quesada Unavailable Tiffanie Bhagat Unavailable Unavailable Debbie ALTAMIRANO, Joaquina Unavailable Unavailable Unavailable Unavailable Dr. Edwardo Petit Primary Care Provider 1([facility])[phone] Dr. Edwardo Petit Referring Provider 1([facility])[phone] Maite Arceo Attending Provider 1([facility])[phone] Fast, Dr. Holcomb Primary Care Provider 1([facility]) [phone] Fast, Dr. Holcomb Referring Provider 1([facility])[phone] Fast, Dr. Holcomb Other Provider Belal, Dr. Martinez Attending Provider 1([facility])[phone] Fast DO, Dr. Holcomb Primary Care Provider 1([facility])2 [phone] Fast DO, Dr. Holcomb Referring Provider 1([facility])3433 Dossi DC, Dr. Arora Attending Provider 1([facility]) Fast DO, Dr. Holcomb Attending Provider 1([facility])[phone] Jerome ORDER MANAGER-C, Tiffanie Attending Provider Jerome ORDER MANAGER-C, Tiffanie Referring Provider Fast DO, Dr. Holcomb Primary Care Provider 1([facility])2 Fast DO, Dr. Holcomb Referring Provider 1([facility])3433 Dossi DC, Dr. Arora Attending Provider 1([facility]) Fast DO, Dr. Holcomb Primary Care Provider 1([facility])2 Fast DO, Dr. Holcomb Referring Provider 1([facility])3433 Dossi DC, Dr. Arora Attending Provider 1([facility]) Jerome ORDER MANAGER-C, Tiffanie Attending Provider Fast DO, Dr. Holcomb Attending Provider 1([facility])3433 Nydia LEAHY, Dr. Arrington Attending Provider 1([facility])[phone] Emir LEAHY, Dr. Carlos Olivier Attending Provider 1([facility])[phone] Fast DO, Dr. Holcomb Primary Care Provider 1([facility])2 Fast DO, Dr. Holcomb Referring Provider 1([facility])3433 Dossi DC, Dr. Arora Attending Provider 1([facility]) Kvng LEAHY, Dr. Brooke Attending Provider 1([facility])[phone] Fast DO, Dr. Holcomb Primary Care Provider 1([facility])2 343 Fast DO, Dr. Holcomb Attending Provider 1([facility]) 343 Fast DO, Dr. Holcomb Referring Provider 1([facility])3433 Dossi DC, Dr. Arora Attending Provider [phone] Ana LEAHY, Dr. Brewster Attending Provider Dossi DC, Dr. Arora Referring Provider [phone] Ana LEAHY, Dr. Brewster Attending Provider Fast DO, Dr. Holcomb Primary Care Provider [phone] Fast DO, Dr. Holcomb Referring Provider [phone] Fast DO, Dr. Holcomb Attending Provider [phone] Fast DO, Dr. Holcomb Primary Care Provider Fast DO, Dr. Holcomb Referring Provider [phone] Dossi [place], Dr. Arora Attending Provider [phone] Fast DO, Dr. Holcomb Primary Care Physician Fast DO, Dr. Holcomb Referring Provider 1([facility])[phone] Dossi DC, Dr. Arora Attending Physician 1([facility])20 Ana LEAHY, Dr. Brewster Attending Physician Fast DO, Dr. Holcomb Attending Physician [phone] Kvng LEAHY, Dr. Brooke Attending Physician 1([facility])[phone] Fast DO, Dr. Holcomb Primary Care Physician Fast DO, Dr. Holcomb Referring Provider [phone] Doss[place], Dr. Arora Attending Physician [phone] [place], Dr. Arora Referring Provider [phone] Ana LEAHY, Dr. Brewster Attending Physician Fast DO, Dr. Holcomb Attending Physician [phone] Tiffanie Cano Referring Unavailable Tiffanie Cano Attending Unavailable Fast, Aicha Primary Care Unavailable Fast, Aicha Referring Unavailable Fast, Aicha Attending Unavailable Fast, Aicha Primary Care Unavailable DossiMaite Attending Unavailable Fast, Aicha Referring Unavailable Fast, Aicha Primary Care Unavailable Fast, Aicha Referring Unavailable Fast, Aicha Attending Unavailable Fast, Aicha Primary Care Unavailable Fast, Aicha Referring Unavailable Fast, Aicha Attending Unavailable Fast, Aicha Primary Care Unavailable Fast, Aicha Referring Unavailable Fast, Aicha Attending Unavailable Fast, Aicha Primary Care Unavailable Fast, Aicha Referring Unavailable Fast, Aicha Attending Unavailable Fast, Aicha Primary Care Unavailable Fast, Aicha Primary Care Unavailable Fast, Aicha Referring Unavailable Fast, Aicha Attending Unavailable Murphy Stafford Attending Unavailable Fast, Aicha Primary Care Unavailable Fast, Aicha Primary Care Unavailable DosMaite martinez Attending Unavailable Fast, Aicha Referring Unavailable Fast, Aicha Primary Care Unavailable Dossi, Maite Attending Unavailable Fast, Aicha Referring Unavailable Fast, Aicha Referring Unavailable Narcisa Perez Attending Unavailable Fast, Aicha Primary Care Unavailable Dossi, Maite Attending Unavailable Fast, Aicha Referring Unavailable Fast, Aicha Primary Care Unavailable Dossi, Maite Attending Unavailable Fast, Aicha Referring Unavailable Fast, Aicha Primary Care Unavailable Dossi, Maite Attending Unavailable Fast, Aicha Referring Unavailable Fast, Aicha Primary Care Unavailable Fast, Aicha Referring Unavailable Fast, Aicha Attending Unavailable Fast, Aicha Primary Care Unavailable Aly Shah Attending Unavailable Fast, Aicha Primary Care Unavailable Fast, Aicha Primary Care Unavailable Fast, Aicha Attending Unavailable Fast, Aicha Referring Unavailable Fast, Aicha Primary Care Unavailable Dossi, Maite Attending Unavailable Fast, Aicha Referring Unavailable Fast, Aicha Primary Care Unavailable Edwardo Calderon Attending Unavailable Fast, Aicha Referring Unavailable Dossi, Maite Attending Unavailable Dossi, Maite Referring Unavailable Fast, Aicha Primary Care Unavailable Dossi, Maite Attending Unavailable Dossi, Maite Referring Unavailable Fast, Aicha Primary Care Unavailable Dosjuan, Maite Attending Unavailable Fast, Aicha Referring Unavailable Fast, Aicha Primary Care Unavailable Fast, Aicha Attending Unavailable Fast, Aicha Referring Unavailable Fast, Aicha Primary Care Unavailable Dossi, Maite Attending Unavailable Fast, Aicha Referring Unavailable Fast, Aicha Primary Care Unavailable Dossi, Maite Attending Unavailable Fast, Aicha Referring Unavailable Fast, Aicha Primary Care Unavailable Fast, Aicha Referring Unavailable Tiffanie Cano Attending Unavailable Fast, Aicha Primary Care Unavailable Dosjuan, Maite Attending Unavailable Fast, Aicha Referring Unavailable Fast, Aicha Primary Care Unavailable Fast, Aicha Primary Care Unavailable DosMaite martinez Attending Unavailable Fast, Aicha Referring Unavailable Fast, Aicha Primary Care Unavailable Dossi, Maite Referring Unavailable Dosjuan, Maite Attending Unavailable Fast, Aicha Primary Care Unavailable Fast, Aicha Referring Unavailable Narcisa Perez Attending Unavailable JeromeTiffanie Referring Unavailable Tiffanie Cano Attending Unavailable Aicha Blackwood Primary Care Unavailable Allergies Allergy Classification Reported Allergen(s) Allergy Type Date of Onset Reaction(s) Facility (20 sources) Amoxicillin Drug Allergy 06-30-19 [facility] (20 sources) Clarithromycin Drug Allergy 06-30-19 [facility] (20 sources) Latex; Translations: [Latex] Propensity to adverse reactions 06-30-19 [facility] Comment on above: skin irritation (20 sources) levoFLOXacin Drug Allergy 06-30-19 [facility] Comment on above: HISTORY OF TENDONITI S (20 sources) Naproxen Drug Allergy 06-30-19 [facility] (20 sources) Nizatidine Drug Allergy 06-30-19 [facility] (20 sources) Sulfonamides (Antibiotic); Translations: [Sulfa (Sulfonamide Antibiotics)] Allergy to substance 06-30-19 [facility] (20 sources) Ciprofloxacin Drug Allergy 06-17-19 [facility] (8 sources) Ciprofloxacin Drug Allergy [facility] Work Phone: (8 sources) Environmental allergy; Translations: [Environmental] Allergy to substance (finding) [facility] Work Phone: Comment on above: Weekly alelrgy shots (8 sources) Sulfonamides (Antibiotic); Translations: [Sulfa Drugs] Allergy to substance (finding) [facility]; [facility] Work Phone: (8 sources) Erythromycins; Translations: [Erythromycins] Allergy to substance (finding) [facility]; [facility] Work Phone: (1 source) Amoxicillin Drug Allergy 12-25-19 [facility] (1 source) Ciprofloxacin Drug Allergy 12-25-19 [facility] (1 source) Clarithromycin Drug Allergy 12-25-19 [facility] (1 source) Latex Drug allergy (disorder) 12-25-19 [facility] (1 source) levoFLOXacin Drug Allergy 12-25-19 [facility] (1 source) Naproxen Drug Allergy 12-25-19 [facility] (1 source) Nizatidine Drug Allergy 12-25-19 [facility] Medications Current Medications Medication Drug Class(es) Dates Sig (Normalized) Sig (Original) ascorbic acid 500 mg oral capsule (20 sources) Vitamin C Start: 12-05-2019 take 1 capsule by mouth twice daily Ascorbic Acid (Vitamin C) 500 MG capsule Active 500 mg PO TWICE A DAY December 04, 2019 11:00pm Complies with drug therapy take 1 mg by mouth twice daily a scorbic acid (vitamin C) 500 mg oral tablet bid (500 mg) Active [id number] Ulg-Xgui-Kxu-Asb-C (18 sources) Osmotic Laxative, Vitamin C Start: 05-08-2024 [id number] Bhg-Wdan-Ynf-Asb-C (Plenvu) 140-9-5.2 gram powder in packet, sequential Active 0 PO .COMPLEX 3 May 08, 2024 12:00am Take as directed for split dose bowel prep Complies with drug therapy Start: 05-08-2024 [id number] Ladd l-Ddth-Mcr-Asb-C (Plenvu) 140-9-5.2 gram powder in packet, sequential Active 0 PO .COMPLEX 3 May 08, 2024 1:00am Take as directed for split dose bowel prep Complies with drug therapy Start: 05-08-2024 [id number] Ladd d-Ddiu-Rou-Asb-C (Plenvu) 140-9-5.2 gram powder in packet, sequential Active 0 PO .COMPLEX 3 May 08, 2024 1:00am Take as directed for split dose bowel prep Start: 05-08-2024 [id number] Ladd n-Oepn-Xca-Asb-C (Plenvu) 140-9-5.2 gram powder in packet, sequential Active 0 PO .COMPLEX 3 May 08, 2024 1:00am Take as directed for split dose bowel prep biotin 5 mg oral tablet (20 sources) Start: 12-05-2019 take 1 tablet by mouth once daily Biotin 5 MG tablet Active 5 mg PO DAILY December 04, 2019 11:00pm Complies with drug therapy Start: 05-17-2014 End: 12-24-2022 take 1 capsule by mouth once daily biotin 2,500 mcg oral capsule 1 (one) Capsule Capsule qd for 30 days Quantity: 30 {Capsule} Refills: 0 Ordered: 24-Dec-2022 Joaquina Lewis CMA Start : 17-May-2014 End : 24-Dec-2022 Inactive take 1 mg by mouth once daily bi otin 5 mg oral capsule qd (5 mg) Active budesonide 3 mg delayed release oral capsule (20 sources) Corticosteroid Start: 05-08-2024 Budesonide 3 mg capsule,delayed,extend.release Active 3 mg PO .COMPLEX 210 0 May 08, 2024 12:00am 3 mg orally; take 9mg QD X8 weeks, 6mg x2 weeks, 3mg x2 weeks, then discontinue Complies with drug therapy Start: 03-15-2024 End: 05-08-2024 take 1 tablet by mouth once daily Budesonide 9 mg tablet,delayed and ext.release Discontinued 9 mg PO daily March 15, 2024 12:00am May 08, 2024 8:50am calcitriol 0.11642 mg oral capsule (18 sources) Vitamin D3 Analog Start: 03-15-2024 take 1 capsule by mouth once daily Calcitriol 0.25 mcg capsule Active 0.25 ug PO daily March 15, 2024 12:00am Complies with drug therapy cetirizine hydrochloride 10 mg oral tablet (20 sources) Histamine-1 Receptor Antagonist Start: 11-20-2021 take 1 tablet by mouth once daily Cetirizine (Zyrtec) 10 mg Tablet Active 10 mg PO DAILY November 19, 2021 11:00pm Complies with drug therapy Cod Liver Oil (20 sources) Start: 12-05-2019 Cod Liver Oil Active 1 EACH PO THREE TIMES A DAY December 05, 2019 11:20am Start: 12-05-2019 Cod Liver Oil Active 1 EACH PO THREE TIMES A DAY December 04, 2019 11:00pm Start: 12-05-2019 Cod Liver Oil Active 1 EACH PO THREE TIMES A DAY December 05, 2019 12:00am Cod Liver Oil capsule (18 sources) Start: 03-15-2024 Cod Liver Oil capsule Active 1 NMA PO .6xMarch 15, 2024 1:02pm Complies with drug therapy Start: 03-15-2024 Cod Liver Oil capsule Active 1 NMA PO .6xMarch 15, 2024 2:02pm Complies with drug therapy Start: 03-15-2024 Cod Liver Oil capsule Active 1 NMA PO .6March 15, 2024 2:02pm Cranberry (20 sources) Non-Standardized Food Allergenic Extract, Non-Standardized Plant Allergenic Extract Start: 03-15-2024 take 1 capsule by mouth three times daily Cranberry 500 mg capsule Active 500 mg PO THREE TIMES A DAY March 15, 2024 1:02pm Complies with drug therapy Start: 03-15-2024 take 1 capsule by mo uth three times daily Cranberry 500 mg capsule Active 500 mg PO THREE TIMES A DAY March 15, 2024 2:02pm Complies with drug therapy Start: 03-15-2024 take 1 capsule by mo uth three times daily Cranberry 500 mg capsule Active 500 mg PO THREE TIMES A DAY March 15, 2024 2:02pm Start: 12-05-2019 take 500 mg by mouth twice daily Cranberry Active 500 MG PO TWICE A DAY December 05, 2019 11:20am Start: 12-05-2019 End: 03-15-2024 take 1 capsule by mouth twice daily Cranberry 500 MG capsule Discontinued 500 mg PO TWICE A DAY December 04, 2019 11:00pm March 15, 2024 1:08pm Start: 12-05-2019 End: 03-15-2024 take 1 capsule by mouth twice daily Cranberry 500 MG capsule Discontinued 500 mg PO TWICE A DAY December 05, 2019 12:00am March 15, 2024 2:08pm Start: 12-05-2019 take 500 mg by mouth twice daily Cranberry Active 500 MG PO TWICE A DAY December 04, 2019 11:00pm Start: 12-05-2019 take 500 mg by mouth twice daily Cranberry Active 500 MG PO TWICE A DAY December 05, 2019 12:00am take 1 mg by mouth twice daily c ranberry 500 mg oral capsule twice a day (500 mg) Active estrogen ring (18 sources) Start: 03-15-2024 estrogen ring Active VAGINAL March 15, 2024 12:00am Complies with drug therapy Start: 03-15-2024 estrogen ring Active VAGINAL March 15, 2024 1:00am Complies with drug therapy Start: 03-15-2024 estrogen ring Active VAGINAL March 15, 2024 1:00am fluticasone propionate 0.05 mg/actuat metered dose nasal spray (20 sources) Corticosteroid Start: 07-11-2018 Fluticasone Pr opionate 1 SPRAY spray,suspension Active 2 NMA NASAL DAILY July 10, 2018 11:00pm Complies with drug therapy Start: 07-11-2018 Fluticasone Pr opionate Active 2 SPRAY NASAL DAILY July 10, 2018 11:00pm take 2 spray(s) nasa l route once daily fluticasone propionate 50 mcg/actuation intranasal spray, suspension 2 sprays in each nostril qd (50 mcg/actuat) Active L.Acidoph, Paracasei,B. Lact is (20 sources) Start: 12-05-2019 L.Acidoph, Par acasei,B. Lactis Active 1 EACH PO DAILY December 05, 2019 11:20am Start: 12-05-2019 L.Acidoph, Par acasei,B. Lactis Active 1 EACH PO DAILY December 04, 2019 11:00pm Start: 12-05-2019 L.Acidoph, Par acasei,B. Lactis Active 1 EACH PO DAILY December 05, 2019 12:00am L.Acidoph,Paracasei,B.Animal is 1 EACH capsule (18 sources) Start: 12-05-2019 take 1 capsule by mouth once daily L.Acidoph,Paracasei,B.Animalis 1 EACH capsule Active 1 NMA PO DAILY December 04, 2019 11:00pm Complies with drug therapy Start: 12-05-2019 take 1 capsule by mouth once daily L.Acidoph,Paracasei,B.Animalis 1 EACH ca psule Active 1 NMA PO DAILY December 05, 2019 12:00am Complies with drug therapy Start: 12-05-2019 take 1 capsule by mouth once daily L.Acidoph,Paracasei,B.Animalis 1 EACH ca psule Active 1 NMA PO DAILY December 05, 2019 12:00am Magnesium (20 sources) Start: 03-15-2024 Magnesium 250 mg tablet Active 400 mg PO DAILY March 15, 2024 1:04pm Complies with drug therapy Start: 03-15-2024 Magnesium 250 mg tablet Active 400 mg PO DAILY March 15, 2024 2:04pm Complies with drug therapy Start: 03-15-2024 Magnesium 250 mg tablet Active 400 mg PO DAILY March 15, 2024 2:04pm Start: 12-05-2019 take 250 mg by mouth once owen y Magnesium Active 250 MG PO DAILY December 05, 2019 11:20am Start: 12-05-2019 End: 03-15-2024 take 1 tablet by mouth once daily Magnesium 250 MG tablet Discontinued 250 mg PO DAILY December 04, 2019 11:00pm March 15, 2024 1:08pm Start: 12-05-2019 End: 03-15-2024 take 1 tablet by mouth once daily Magnesium 250 MG tablet Discontinued 250 mg PO DAILY December 05, 2019 12:00am March 15, 2024 2:08pm Start: 12-05-2019 take 250 mg by mouth once owen y Magnesium Active 250 MG PO DAILY December 04, 2019 11:00pm Start: 12-05-2019 take 250 mg by mouth once owen y Magnesium Active 250 MG PO DAILY December 05, 2019 12:00am take 1 mg by mouth once daily ma gnesium 250 mg oral tablet qd (250 mg) Active ondansetron 4 mg oral tablet (18 sources) Serotonin-3 Receptor Antagonist Start: 05-08-2024 take 2 tablets by mouth every two hours as needed, then take 1 tablet by mouth every four hours as needed Ondansetron Hcl 4 mg tablet Active 4 mg PO .COMPLEX 5 0 May 08, 2024 12:00am 4 mg orally; two tablets PO two hours prior to start of bowel prep and one every 4 hours as needed for N/V Complies with drug therapy rosuvastatin calcium 5 mg oral tablet (20 sources) HMG-CoA Reductase Inhibitor Start: 03-15-2024 take 1 tablet by mouth once daily Rosuvastatin 5 mg tablet Active 5 mg PO daily March 15, 2024 12:00am Complies with drug therapy Start: 01-05-2023 take 1 tablet by lc th once daily rosuvastatin 5 mg oral tablet 1 (one) tablet qd for 0 days Quantity: 30 {Tablet} Refills: 3 Ordered: 05-Jan-2023 Fast DO, Aicha A Fast DO, Aicha A Start : 05-Jan-2023 Active Completed/Discontinued Medications Medication Drug Class(es) Dates Sig (Normalized) Sig (Original) acetylcysteine 600 mg oral capsule (20 sources) Antidote, Mucolytic, Antidote for Acetaminophen Overdose Start: 12-05-2019 End: 03-15-2024 take 1 capsule by mouth twice daily Acetylcysteine 600 MG capsule Discontinued 600 mg PO TWICE A DAY December 04, 2019 11:00pm March 15, 2024 12:58pm take 1 mg by mouth once daily ac etylcysteine 600 mg oral capsule qd (600 mg) Active aspirin 81 mg delayed release oral tablet (10 sources) Platelet Aggregation Inhibitor, Nonsteroidal Anti-inflammatory Drug Start: 01-05-2023 take 1 tablet by mouth three times weekly at mealtime Enteric Coated Aspirin 81 mg oral tablet, delayed release (enteric coated) 1 (one) tablet three times a week with food for 0 days Quantity: 30 {Tablet} Refills: 3 Ordered: 05-Jan-2023 Fast DO, Aicha A Fast DO, Aicha A Start : 05-Jan-2023 Active End: 12-24-2022 aspirin 81 mg oral tablet fo r 0 days Refills: 0 Ordered: 24-Dec-2022 [employer], Joaquina End : 24-Dec-2022 Discontinued azelastine hydrochloride 0.137 mg/actuat / fluticasone propionate 0.05 mg/actuat metered dose nasal spray (8 sources) Corticosteroid, Histamine-1 Receptor Antagonist Start: 02-06-2013 End: 05-17-2014 take 1 spray(s) nasal route once daily DYMISTA, 137-50MCG/ACT (Nasal Suspension) 1 spray(s) each nostril daily for 0 days Quantity: 1 {Suspension} Refills: 3 Ordered: 17-May-2014 Tiffanie Bhagat Start : 06-Feb-2013 End : 17-May-2014 Discontinued bifidobacterium infantis 4 mg oral capsule (8 sources) Start: 07-17-2013 End: 05-17-2014 take 1 capsule by mouth once daily ALIGN, 4MG (Oral Capsule) 1 (one) Capsule daily for 0 days Quantity: 30 {Capsule} Refills: 0 Ordered: 17-May-2014 Tiffanie Bhagat Start : 17-Jul-2013 End : 17-May-2014 Discontinued Calcium (8 sources) Phosphate Binder, Calcium End: 12-24-2022 Calcium 900 w/D Oral Capsule for 0 days Refills: 0 Ordered: 24-Dec-2022 [employer], Joaquina End : 24-Dec-2022 Discontinued cholecalciferol 0.025 mg oral tablet (20 sources) Vitamin D Start: 12-05-2019 End: 03-15-2024 take 1 tablet by mouth once daily Cholecalciferol (Vitamin D3) 1,000 UNIT tablet Discontinued 1000 U PO DAILY December 04, 2019 11:00pm March 15, 2024 1:01pm Start: 06-23-2010 End: 12-24-2022 take 3 capsules by mouth once daily cholecalciferol (vitamin D3) 25 mcg (1,000 unit) oral tablet 3 (three) Capsule qd for 0 days Quantity: 90 {Capsule} Refills: 0 Ordered: 24-Dec-2022 Joaquina Lewis CMA Start : 23-Jun-2010 End : 24-Dec-2022 Inactive take 1 capsule by mo [facility] once daily cholecalciferol (vitamin D3) 25 mcg (1,000 unit) oral capsule qd (25 mcg (1,000 uni) Active End: 03-02-2010 VITAMIN D, 400UNIT (Oral Tab let) for 0 days Refills: 0 Ordered: 02-Mar-2010 Ammy Harvey RN End : 02-Mar-2010 Discontinued ciprofloxacin 500 mg oral tablet (8 sources) Quinolone Antimicrobial Start: 11-04-2014 End: 11-11-2014 take 1 tablet by mouth twice daily CIPROFLOXACIN HCL, 500MG (Oral Tablet) 1 (one) Tablet bid for 7 days Quantity: 14 {Tablet} Refills: 0 Ordered: 04-Nov-2014 Tash Rust Start : 04-Nov-2014 End : 11-Nov-2014 Inactive 24 hr clarithromycin 500 mg extended release oral tablet (8 sources) Macrolide Antimicrobial Start: 02-18-2012 End: 02-25-2012 take 2 tablets by mouth once daily BIAXIN XL PAC, 500MG (Oral Tablet Extended Release 24 Hour) 2 (two) Tablet ER 24HR daily for 14 days Quantity: 28 {Tablet_ER_24HR} Refills: 0 Ordered: 25-Feb-2012 MariannaTash clemons Start : 18-Feb-2012 End : 25-Feb-2012 Inactive clobetasol propionate 0.5 mg/ml topical foam (8 sources) Corticosteroid Start: 05-09-2013 End: 05-17-2014 OLUX, 0.05% (External Foam) apply to effected areas Foam prn for 0 days Quantity: 1 {Foam} Refills: 3 Ordered: 17-May-2014 Tiffanie Bhagat Start : 09-May-2013 End : 17-May-2014 Discontinued Comments: 6oz bottle Comment on above: 6oz bottle Cod Liver Oil 1 EACH capsule (18 sources) Start: 12-05-2019 End: 03-15-2024 Cod Liver Oil 1 EACH capsule Discontinued 1 NMA PO THREE TIMES A DAY December 04, 2019 11:00pm March 15, 2024 1:08pm Start: 12-05-2019 End: 03-15-2024 Cod Liver Oil 1 EACH capsule Discontinued 1 NMA PO THREE TIMES A DAY December 05, 2019 12:00am March 15, 2024 2:08pm cod liver oiL oral capsule (8 sources) cod liver oiL or al capsule three times daily Active desoximetasone 2.5 mg/ml topical cream (8 sources) Corticosteroid Start: 09-20-2011 End: 09-20-2011 TOPICORT, 0.25% (External Cream) 1 Cream bid for 0 days Quantity: 60 {Cream} Refills: 0 Ordered: 20-Sep-2011 Tiffanie Bhagat Start : 20-Sep-2011 End : 20-Sep-2011 Discontinued diclofenac sodium 0.01 mg/mg topical gel (20 sources) Nonsteroidal Anti-inflammatory Drug Start: 12-24-2022 Voltaren Arthritis Pain 1 % topical gel 1 (one) gram prn for 0 days Quantity: 30 {Gram} Refills: 0 Ordered: 05-Jan-2023 Joaquina Lewis CMA Start : 24-Dec-2022 Active Start: 07-11-2018 Diclofenac Sod ium 100 GM gel Active 100 g TP NEEDED as needed for Pain July 10, 2018 11:00pm Complies with drug therapy take 1 tablet by lc th once daily as needed diclofenac sodium 100 mg oral Tablet, Extended Release 24 hr 1 tab qd prn (100 mg) Inactive doxycycline hyclate 100 mg delayed release oral tablet (20 sources) Tetracycline-class Drug Start: 09-04-2014 End: 11-01-2014 take 1 tablet by mouth twice daily DOXYCYCLINE HYCLATE, 100MG (Oral Tablet Delayed Release) 1 (one) Tablet DR bid for 0 days Quantity: 28 {Tablet} Refills: 0 Ordered: 01-Nov-2014 Adrianna Roberts LPN Start : 04-Sep-2014 End : 01-Nov-2014 Discontinued Start: 01-23-2010 End: 02-02-2010 take 1 tablet by mouth twice daily DOXYCYCLINE HYCLATE, 100MG (Oral Tablet) 1 Tablet bid for 10 days Quantity: 20 {Tablet} Refills: 0 Ordered: 23-Jan-2010 Tash Rust Start : 23-Jan-2010 End : 02-Feb-2010 Inactive Start: 09-17-2009 End: 01-20-2010 take 1 capsule by mouth twice daily DOXY-CAPS, 100MG (Oral Capsule) 1 (one) Capsule bid for 0 days Quantity: 28 {Capsule} Refills: 0 Ordered: 20-Jan-2010 Haven Cheung LPN Start : 17-Sep-2009 End : 20-Jan-2010 Discontinued Comments: This order discontinued per [facility]. Comment on above: This order discontin ued per -. esomeprazole 40 mg delayed release oral capsule (16 sources) Proton Pump Inhibitor Start: 10-09-2013 End: 12-24-2022 NexIUM 40 mg oral capsule,delayed release (enteric coated) 1 (one) Capsule DR Capsule DR cap for 0 days Quantity: 30 {Capsule} Refills: 0 Ordered: 24-Dec-2022 Joaquina Lewis CMA Start : 09-Oct-2013 End : 24-Dec-2022 Inactive Start: 07-17-2013 End: 05-17-2014 NEXIUM, 40MG (Oral Capsule D elayed Release) [address] qd for 0 days Quantity: 30 {Capsule_DR} Refills: 3 Ordered: 17-May-2014 Tiffanie Bhagat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 339 10*3/uL Normal 150-450 [facility] Comment on above: Performed By: #### L 506.1001, L500.4100, L501.9985, L100.0100, L500.4050 ####[facility] [address] [place], [address] RBC (Bld) [#/Vol] 4.75 10*6/uL Normal 4.2-5.4 [facility] Comment on above: Performed By: #### L 506.1001, L500.4100, L501.9985, L100.0100, L500.4050 ####[facility] [address] [place], [address] RDW SD 41.1 fl Normal 35.1-43.9 [facility] Comment on above: Performed By: #### L 506.1001, L500.4100, L501.9985, L100.0100, L500.4050 ####[facility] [address] [place], [address] WBC (Bld) [#/Vol] 4.9 10*3/uL Normal 4.4-11.[address] [facility] Comment on above: Performed By: #### L 506.1001, L500.4100, L501.9985, L100.0100, L500.4050 ####[facility] [address] [place], [address] Comprehensive Metabolic Prof [facility] 01-11-2025 Albumin [Mass/Vol] 4.2 g/dL Normal 3.4-4.[address] [facility] Comment on above: Performed By: #### L 506.1001, L500.4100, L501.9985, L100.0100, L500.4050 ####[facility] [address] [place], [address] Albumin/Globulin [Mass ratio] 1.4 {ratio} Normal 0.9-2.4 [facility] Comment on above: Performed By: #### L 506.1001, L500.4100, L501.9985, L100.0100, L500.4050 ####[facility] [address] [place], [address] ALK PHOS 54 U/L Normal 35-104 [facility] Comment on above: Performed By: #### L 506.1001, L500.4100, L501.9985, L100.0100, L500.4050 ####[facility] [address] [place], [address] ALT [Catalytic activity/Vol] 9 U/L Normal <=34 [facility] Comment on above: Performed By: #### L 506.1001, L500.4100, L501.9985, L100.0100, L500.4050 ####[facility] [address] [place], [address] AST [Catalytic activity/Vol] 18 U/L Normal <=31 [facility] Comment on above: Performed By: #### L 506.1001, L500.4100, L501.9985, L100.0100, L500.4050 ####[facility] [address] [place], [address] Bilirubin [Mass/Vol] 0.52 mg/dL Normal 0.00-1.30 [facility] Comment on above: Performed By: #### L 506.1001, L500.4100, L501.9985, L100.0100, L500.4050 ####[facility] [address] [place], [address] BUN/CRE 25.7 RATIO High 10-20 [facility] Comment on above: Performed By: #### L 506.1001, L500.4100, L501.9985, L100.0100, L500.4050 ####[facility] [address] [place], [address] Calcium [Mass/Vol] 9.8 mg/dL Normal 7.6-11.[address] [facility] Comment on above: Performed By: #### L 506.1001, L500.4100, L501.9985, L100.0100, L500.4050 ####[facility] [address] [place], [address] Chloride [Moles/Vol] 100 mmol/L Normal 98-108 [facility] Comment on above: Performed By: #### L 506.1001, L500.4100, L501.9985, L100.0100, L500.4050 ####[facility] [address] [place], [address] CO2 [Moles/Vol] 29.2 mmol/L Normal 21.0-32.0 [facility] Comment on above: Performed By: #### L 506.1001, L500.4100, L501.9985, L100.0100, L500.4050 ####[facility] [address] [place], [address] Creatinine [Mass/Vol] 0.66 mg/dL Low 0.70-1.20 [facility] Comment on above: Performed By: #### L 506.1001, L500.4100, L501.9985, L100.0100, L500.4050 ####[facility] [address] [place], [address] GAP 9 Normal 5-15 [facility] Comment on above: Performed By: #### L 506.1001, L500.4100, L501.9985, L100.0100, L500.4050 ####[facility] [address] [place], [address] GFR/1.73 sq M.predicted among non-blacks MDRD (S/P/Bld) [Vol rate/Area] 90 mL/min/{1.73_m2} Normal >60 [facility] Comment on above: Result Comment: mL/m in/1.73m2 CKD-EPI Creatinine Equation (2020) Performed By: #### L 506.1001, L500.4100, L501.9985, L100.0100, L500.4050 ####[facility] [address] [place], [address] Globulin (S) [Mass/Vol] 3.1 g/dL Normal 2.2-4.2 [facility] Comment on above: Performed By: #### L 506.1001, L500.4100, L501.9985, L100.0100, L500.4050 ####[facility] [address] [place], [address] Glucose [Mass/Vol] 100 mg/dL High 70-[address] [facility] Comment on above: Performed By: #### L 506.1001, L500.4100, L501.9985, L100.0100, L500.4050 ####[facility] [address] [place], [address] Potassium [Moles/Vol] 4.1 mmol/L Normal 3.3-5.1 [facility] Comment on above: Performed By: #### L 506.1001, L500.4100, L501.9985, L100.0100, L500.4050 ####[facility] [address] [place], [address] Sodium [Moles/Vol] 138 mmol/L Normal 133-[address] [facility] Comment on above: Performed By: #### L 506.1001, L500.4100, L501.9985, L100.0100, L500.4050 ####[facility] [address] [place], [address] T PROT 7.3 g/dL Normal 5.9-8.4 [facility] Comment on above: Performed By: #### L 506.1001, L500.4100, L501.9985, L100.0100, L500.4050 ####[facility] [address] [place], [address] Urea nitrogen [Mass/Vol] 17 mg/dL Normal 4-19 [facility] Comment on above: Performed By: #### L 506.1001, L500.4100, L501.9985, L100.0100, L500.4050 ####[facility] [address] [place], [address] Hemoglobin A1con 01-11-2025 HbA1c (Bld) [Mass fraction] 5.6 % Normal <=5.6 [facility] Comment on above: Result Comment: Norm al < 5.7 % Prediabetic 5.7 - 6.4 % Diabetic >or= 6.5 % Please note range changes. Performed By: #### L 506.1001, L500.4100, L501.9985, L100.0100, L500.4050 ####[facility] [address] [place], [address] Lipid Profileon 01-11-2025 CHOL:HDL 1.79 Normal [facility] Comment on above: Performed By: #### L 506.1001, L500.4100, L501.9985, L100.0100, L500.4050 ####[facility] [address] [place], [address] Cholesterol [Mass/Vol] 179 mg/dL Normal <=200 [facility] Comment on above: Result Comment: Chol esterol level, Desirable <200 mg/dL Borderline high cholesterol 200-239 mg/dL High cholesterol >=240 mg/dL Recommendations of the NCEP Adult Treatment Panel for the following risk-cutoff thresholds for the [place] population. Performed By: #### L 506.1001, L500.4100, L501.9985, L100.0100, L500.4050 ####[facility] [address] [place], [address] Cholesterol in HDL [Mass/Vol] 100 mg/dL Normal [facility] Comment on above: Result Comment: Ale onal Cholesterol Education Program (NCEP) guidelines: <40 mg/dL: Low HDL-cholesterol (major risk factor for CHD) >= 60 mg/dL: High HDL-cholesterol (negative risk factor for CHD) HDL-cholesterol is affected by a number of factors, e.g. smoking, exercise, hormones, sex and age. Performed By: #### L 506.1001, L500.4100, L501.9985, L100.0100, L500.4050 ####[facility] [address] [place], [address] Cholesterol in LDL [Mass/Vol] 68 mg/dL Normal [facility] Comment on above: Result Comment: Bord xvehdo=116-077 mg/dL Higher Gyjm=919 mg/dL or greater Francois Equation 2020 for LDL-C Performed By: #### L 506.1001, L500.4100, L501.9985, L100.0100, L500.4050 ####[facility] [address] [place], [address] Cholesterol in VLDL [Mass/Vol] 11 mg/dL Normal 5-40 [facility] Comment on above: Performed By: #### L 506.1001, L500.4100, L501.9985, L100.0100, L500.4050 ####[facility] [address] [place], [address] Triglyceride [Mass/Vol] 54 mg/dL Normal [facility] Comment on above: Result Comment: The drugs N-Acetylcysteine and Metamizole may falsely depress this assay. Normal range: <150 mg/dL Borderline High: 150-199 mg/dL High: 200-499 mg/dL Very High: >500 mg/dL Performed By: #### L 506.1001, L500.4100, L501.9985, L100.0100, L500.4050 ####[facility] [address] [place], [address] Vitamin D,25 Hydroxyon 01-11 Vitamin D 25-OH 44.2 ng/mL Normal 30-100 [facility] Comment on above: Result Comment: Briana min D Status Deficiency: <20 ng/mL (50nmol/L) Insufficiency: 20-30 ng/mL (50-75 nmol/L) Sufficiency: 30-100 ng/mL (75-250 nmol/L) Toxicity: >100 ng/mL (>250 nmol/L) Performed By: #### L 506.1001, L500.4100, L501.9985, L100.0100, L500.4050 ####[facility] [address] [place], [address] Chiropractic Reporton 2024 Chiropractic Report [facility] Chiropractic [facility] [place], [place] [address] OFFICE VISIT Date of Service: 12/24/24 MR#: [id number] Acct: [id number] Name: ANTONIO DECKER Rep #: [id number] : 1945 Provider: JOSIAS Rutherford Age/Sex: 79/F Location: [facility] Status: Signed Intake Vital Signs 10/17/24 13:23 Height 5 ft 5 in Intake Visit Reasons: Back pain Chief Complaint: neck and low back discomfort Is patient in pain?: Yes (neck and low back ) Pain scale (1-10): 3 Allergies ciprofloxacin Allergy (Intermediate, Verified 12/24/24 11:39) Other amoxicillin (Amoxicillin) Allergy (Verified 12/24/24 11:39) Hives clarithromycin Allergy (Verified 12/24/24 11:39) Rash naproxen Allergy (Verified 12/24/24 11:39) Hives nizatidine (From Axid) Allergy (Verified 12/24/24 11:39) Hives Sulfa (Sulfonamide Antibiotics) Allergy (Verified 12/24/24 11:39) Rash latex Adverse Reaction (Verified 12/24/24 11:39) Rash levofloxacin (From Levaquin) Adverse Reaction (Verified 12/24/24 11:39) Other Medications ???Medication ???Instructions ???Recorded ???Confirmed ???Type diclofenac sodium 1 % topical gel 100 g TP PRN PRN Pain 07/11/18 History fluticasone propionate 50 2 spray NASAL DAILY 07/11/1812/24 History mcg/actuation nasal spray,suspension L.acidoph,paracasei,B.an imalis 10 1 ea PO DAILY 12/05/19 12/24/24 H istory billion cell capsule ascorbic acid (vitamin C) 500 mg 500 mg PO BID 12/05/19 12/24/24 Hi story capsule biotin 5 mg tablet 5 mg PO DAILY 12/05/19 12/24/24 Hi story cetirizine 10 mg tablet (Zyrtec) 10 mg PO DAILY 11/20/21 12/24/24 H istory calcitriol 0.25 mcg capsule 0.25 mcg PO QDAY 03/15/24 12/24/24 History cod liver oil 1 cap PO .6xday 03/15/24 12/24/24 History cranberry 500 mg capsule 500 mg PO TID 03/15/24 12/24/24 Hi story estrogen ring vaginal 03/15/24 12/24/24 History magnesium 250 mg tablet 400 mg PO DAILY 03/15/24 12/24/24 History rosuvastatin 5 mg tablet 5 mg PO QDAY 03/15/24 12/24/24 His tory budesonide 3 mg 3 mg PO .COMPLEX #210 ea 05/08/24 12/24/24 Rx capsule,delayed,extended release ondansetron HCl 4 mg tablet 4 mg PO .COMPLEX #5 tabs 05/08/24 12/24/24 Rx [id number] 140 gram-sod sulfate 9 See Rx Instructions PO .COMPLEX #3 05/08/24 12/24/24 Rx gram-NaCl 5.2gram-KCl-C oral pwdr ea packs (Plenvu) Have you fallen in the past year?: No PFSH Medical History Urinary tract infection Vaginal atrophy Osteoarthritis Osteopenia Hypoglycemia Coronary artery disease FH: cataracts Seasonal allergies Anxiety Diverticulosis of colon Diarrhea Osteoporosis GERD (gastroesophageal reflux disease) History of reactive hypoglycemia History of UTI Family History Other Arthritis Bowel disease Heart disease Hyperlipidemia Osteoporosis Respiratory disease Suicide attempt Thyroid disorder Social History Smoking Status: Former smoker alcohol intake: current alcohol intake frequency: a few times a week Alcohol type: wine substance use type: former substance user Date of last use: marijuana and amphetamines in her 20's what type of physical activity do you participate in: walking and weight training frequency: 5-6 times per week HPI Back pain Chief Complaint: low back and neck pain Visit Number: 11 Details: ANTONIO DECKER is a 79 year old female here to follow up for ongoing neck and back pain. Pt. reports she continues to experience stiffness on the left side of her neck that extends into her left trap. She states it is a pulling sensation. She denies recent ARRIAGA's. She states her left low back pain is a mild ache. She rates her overall pain 3/10 today. She continues to get massages weekly and is doing PT for balance. She states prolonged periods of walking and standing aggravate her pain and discomfort. Pt. denies new injury, numbness or tingling. She stays active, goes to the gym, does her PT exercises and stretches at home. She reports chiropractic adjustments are helpful in relieving some her pain and discomfort but it gradually returns. Location: low back/neck Duration: intermittent Aggravating or associated factors: bending,standing,sleepin g Relieving factors: chiro,massage,acu Pain Quality: aching and dull Exam Musc General: Yes normal gait, joint tenderness and decreased range of motion; No normal posture Cervical Spine: Yes cervical muscular tenderness bilateral diffuse , Yes cervical spasm left greater than right diffuse trapezius, paracervical muscles and intrinsics and Yes misalignment misalignment: C6 and C7 Thoracic/Lumber: No thoracic and lumbar spine normal to insp (more content not included)... Normal [facility] Chiropractic Reporton 2024 Chiropractic Report [facility] [address] [place] [address] OFFICE VISIT Date of Service: 11/26/24 MR#: [id number] Acct: [id number] Name: ANTONIO DECKER Rep #: [id number] : 1945 Provider: JOSIAS Rutherford Age/Sex: 79/F Location: [facility] Status: Signed Intake Vital Signs 10/17/24 13:23 Height 5 ft 5 in Weight: 137 lb BMI 22.8 BP 122/80 H Pulse 70 Temp 98.3 F Intake Visit Reasons: Back pain Chief Complaint: neck and low back discomfort Is patient in pain?: Yes (neck) Pain scale (1-10): 3 Allergies ciprofloxacin Allergy (Intermediate, Verified 11/26/24 13:09) Other amoxicillin (Amoxicillin) Allergy (Verified 11/26/24 13:09) Hives clarithromycin Allergy (Verified 11/26/24 13:09) Rash naproxen Allergy (Verified 11/26/24 13:09) Hives nizatidine (From Axid) Allergy (Verified 11/26/24 13:09) Hives Sulfa (Sulfonamide Antibiotics) Allergy (Verified 11/26/24 13:09) Rash latex Adverse Reaction (Verified 11/26/24 13:09) Rash levofloxacin (From Levaquin) Adverse Reaction (Verified 11/26/24 13:09) Other Medications ???Medication ???Instructions ???Recorded ???Confirmed ???Type diclofenac sodium 1 % topical gel 100 g TP PRN PRN Pain 07/11/18 History fluticasone propionate 50 2 spray NASAL DAILY 07/11/1811/26 History mcg/actuation nasal spray,suspension silva Ritchie B.an imalis 10 1 ea PO DAILY 12/05/19 11/26/24 H istory billion cell capsule ascorbic acid (vitamin C) 500 mg 500 mg PO BID 12/05/19 11/26/24 Hi story capsule biotin 5 mg tablet 5 mg PO DAILY 12/05/19 11/26/24 Hi story cetirizine 10 mg tablet (Zyrtec) 10 mg PO DAILY 11/20/21 11/26/24 H istory calcitriol 0.25 mcg capsule 0.25 mcg PO QDAY 03/15/24 11/26/24 History cod liver oil 1 cap PO .6xday 03/15/24 11/26/24 History cranberry 500 mg capsule 500 mg PO TID 03/15/24 11/26/24 Hi story estrogen ring vaginal 03/15/24 11/26/24 History magnesium 250 mg tablet 400 mg PO DAILY 03/15/24 11/26/24 History rosuvastatin 5 mg tablet 5 mg PO QDAY 03/15/24 11/26/24 His tory budesonide 3 mg 3 mg PO .COMPLEX #210 ea 05/08/24 11/26/24 Rx capsule,delayed,extended release ondansetron HCl 4 mg tablet 4 mg PO .COMPLEX #5 tabs 05/08/24 11/26/24 Rx [id number] 140 gram-sod sulfate 9 See Rx Instructions PO .COMPLEX #3 05/08/24 11/26/24 Rx gram-NaCl 5.2gram-KCl-C oral pwdr ea packs (Plenvu) Have you fallen in the past year?: No PFSH Medical History Urinary tract infection Vaginal atrophy Osteoarthritis Osteopenia Hypoglycemia Coronary artery disease FH: cataracts Seasonal allergies Anxiety Diverticulosis of colon Diarrhea Osteoporosis GERD (gastroesophageal reflux disease) History of reactive hypoglycemia History of UTI Family History Other Arthritis Bowel disease Heart disease Hyperlipidemia Osteoporosis Respiratory disease Suicide attempt Thyroid disorder Social History Smoking Status: Former smoker alcohol intake: current alcohol intake frequency: a few times a week Alcohol type: wine substance use type: former substance user Date of last use: marijuana and amphetamines in her 20's what type of physical activity do you participate in: walking and weight training frequency: 5-6 times per week HPI Back pain Chief Complaint: low back and neck pain Visit Number: 10 Details: ANTONIO DECKER is a 79 year old female here to follow up for ongoing neck and back pain. Pt. reports she is experiencing stiffness on the left side of her neck that extends into her left trap. She states it is a pulling sensation and rates her pain 3/10 today. She denies ARRIAGA's. She states her left low back pain is a mild ache and is much less frequent and less intense. She rates her low back pain 2/10 today. She continues to get massages weekly and is doing PT for balance. She states prolonged periods of walking and standing aggravate her pain and discomfort. Pt. denies new injury, numbness or tingling. She stays active, goes to the gym, does her PT exercises and stretches at home. She reports chiropractic adjustments are helpful in relieving some her pain and discomfort but it gradually returns. Location: low back/neck Duration: intermittent Aggravating or associated factors: bending,standing,sleepin g Relieving factors: chiro,massage,acu Pain Quality: aching and dull Exam Musc General: Yes normal gait, joint tenderness and decreased range of motion; No normal posture Cervical Spine: Yes cervical muscular tenderness left greater than right lower , Yes cervical spasm left greater than right diffuse trapezius, paracervi (more content not included)... Normal [facility] PT D/C Summary (1)on 025 PT D/C Summary (1) [facility] Physical Therapy [facility] [address] [facility] [place] [address] / REHABILITATION SERVICES DISCHARGE SUMMARY MR#: [id number] Acct: [id number] Name: ANTONIO DECKER Rep #: [id number] : 1945 79 From: Adrianna OSBORN Referring Dr.: Dr. Aicha Blackwood DO Status: REG R CR Insurance: MEDICARE PART A B [employer] Discharge Summary D/C summary: It has been my pleasure to treat ANTONIO DECKER referred by Dr. Aicha Blackwood DO, with the diagnosis of Balance Issues for a total of 9 visit(s). Discharge Date: 11/19/24 Please see the following information for a summary of their discharge status. Subjective Subjective: Pt reports that she is alot better. She has not felt herself veering at all. She says she wants to hold on with steps still and I did encourage her to do that. Pain LBP: Pain Intensity (Out of 10): 1 Objective Objective/Function: FGA 25 CATSIB 120/120 Gait: amb with no obvious veering Goals Goal 1:: I HEP Goal Progress: Goal Met Goal 2:: Be able to walk with no veering with gait 100 feet Goal Progress: Goal Met Goal 3:: Increase balance with head turns and improve overall balance on FGA (score was 21 at eval). Goal Progress: Goal Met Goal 4:: Be able to walk on grass with horizontal and vertical head turns without LOB Goal Progress: Goal Met Goal 5:: Increase vestibular input on blue foam (increase CATSIB and score was 85 on eval) Goal Progress: Goal Met Plan Plan: DC PT to HEP D/C Information Discharge Comments: DC PT to HEP d/c sentence: If there are questions or concerns regarding this patient's physical therapy, please feel free to call me at [phone]. Thank you for the referral of this patient. Sincerely, Adrianna Oliva, MPT Balance/Gait/Functional tests Balance/Special Test Scores Functional Gait Assessment Score: 25 % Disability: 16.6700 CATSIB Score (Max score 120 seconds): 120 Dizziness Score: 12 Lower Extremity Functional Score: 55 11/19/24 1421 CC: Dr. Aicha Blackwood DO Signed Normal [facility] Bone density reportOrdered B y: Juanpablo Duran on 11-06-2024 Study report Skeletal system DXA [facility] Services [address] [place] [address] Dexa Bone Density Study MR#: [id number] Acct: [id number] Name: ANTONIO DECKER Rep #: [id number] : 1945 F 79 From: Bob Duran MD PCP: Dr. Aicha Blackwood DO Status: REG CLI Study:Dexa Bone Density Study Date of Exam: 11/06/24 Exam# [id number] Ordering Dr: Keysha Blackwood ra, DO PROCEDURE: DEXA BONE DENSITY STUDY 11/06/2024 REASON FOR EXAM: F, age 79 y/o . Postmenopausal. TECHNIQUE: Procedure Code: BDDBD Modality: DX Procedure: DEXA BONE DENSITY STUDY COMPARISON: November 02, 2022. FINDINGS: BMD and T-SCORES Lumbar spine: 0.885 g/cm2, T-score -1.5 Levels: L1 through L4 Change from prior: Loss of 1%. Left femoral neck: 0.885 g/cm2, T-score 0.3 Femoral neck comparison data not recommended for monitoring change. Left total hip: 0.890 g/cm2, T-score -0.4 Change from prior: Improvement of 1.1%. Right femoral neck: 0.720 g/cm2, T-score -1.2 Femoral neck comparison data not recommended for monitoring change. Right total hip: 0.812 g/cm2, T-score -1.1 Change from prior: Loss of 0.9%. The World Health Organization has defined the following categories based on bonedensity: Normal bone density: T-score equal to or greater than -1.0 Osteopenia: T-score between -1.0 and -2.5 Osteoporosis: T-score equal to or less than -2.5 FRAX (or Comparable) Fracture Risk Assessment: 10 Year Probability of Fracture: Major Osteoporotic Fracture: 17% Hip Fracture: 3.1% (Note: FRAX is not to be reported in setting of normal range bone density, osteoporosis on DEXA, known history of osteoporosis, prior osteoporotic hip or vertebral fracture, or for any patient undergoing pharmacological treatment for bone loss.) The National Osteoporosis Foundation (NOF) recommends pharmacological treatment for patients with a FRAX 10-year risk of 3% or higher for a hip fracture, or 20% or higher for a major osteoporotic fracture, to prevent osteoporosis and reduce fracture risk. The patient does meet the pharmacological treatment recommendations for prevention of osteoporosis. BD/Dexa Bone Density Study IMPRESSION: OSTEOPENIA. Recommend follow-up as clinically warranted. Reading Location: [place] [address] CC: Dr. Aicha Blackwood DO ~ Manager Policy: Signed [facility] Breast imaging reportOrdered By: Juanpablo Duran on 11-06-2024 Study report [facility] Imaging Services [address] [place] [id number] SCRN MAMM (CAD)W/FREDDIE BILAT MR#: [id number] Acct: [id number] Name: ANTONIO DECKER Rep #: [id number] : 1945 F 79 From: Bob Duran MD PCP: Dr. Aicha Blackwood DO Status: REG CLI Study:SCRN MAMM (CAD)W/FREDDIE BILAT Date of Exa m: 11/06/24 Exam# [id number] Ordering Dr: Keysha Blackwood ra, DO EXAM: SCRN MAMM (CAD)W/FREDDIE BILAT DATE: 11/06/2024 CLINICAL HISTORY: F, Age 79 y/o , SCREENING No family history. TECHNIQUE: Procedure Code: BISMWCADBTOM Modality: MG Procedure: SCRN MAMM (CAD)W/FREDDIE BILAT COMPARISON: Prior exam(s) dated November 04, 2023.. FINDINGS: TISSUE DENSITY: The breasts are heterogeneously dense, which may obscure small masses. Bilateral Breast Mammographic Findings: No significant masses, calcifications or other abnormalities are identified. Stable small benign-appearing bilateral axillary lymph nodes. No suspicious masses, areas of developing architectural distortion, or suspicious calcifications. There has been no significant interval change. BI/SCRN MAMM (CAD)W/FREDDIE BILAT IMPRESSION: Stable bilateral screening mammogram. OVERALL FINAL ASSESSMENT BI-RADS 2: BENIGN RECOMMENDATION: Routine annual follow-up in 1 Year A letter with findings and recommendations will be mailed to the patient. Reading Location: [facility] CC: Dr. Aicha Blackwood DO ~ Manager Policy: Signed [facility] Dexa Bone Density Studyon Dexa Bone Density Study [facility] Imaging Services [address] [place], [place] [id number] Dexa Bone Density Study MR#: [id number] Acct: [id number] Name: ANTONIO DECKER Rep #: [id number] : 1945 F 79 From: Juanpablo burk MD PCP: Dr. Aicha Blackwood DO Status: REG CLI Study: Dexa Bone Density Study Date of Exam: 11/06/24 Exam# [id number] Ordering Dr: Aicha Blackwood DO PROCEDURE: DEXA BONE DENSITY STUDY 11/06/2024 REASON FOR EXAM: F, age 79 y/o . Postmenopausal. TECHNIQUE: Procedure Code: BDDBD Modality: DX Procedure: DEXA BONE DENSITY STUDY COMPARISON: November 02, 2022. FINDINGS: BMD and T-SCORES Lumbar spine: 0.885 g/cm2, T-score -1.5 Levels: L1 through L4 Change from prior: Loss of 1%. Left femoral neck: 0.885 g/cm2, T-score 0.3 Femoral neck comparison data not recommended for monitoring change. Left total hip: 0.890 g/cm2, T-score -0.4 Change from prior: Improvement of 1.1%. Right femoral neck: 0.720 g/cm2, T-score -1.2 Femoral neck comparison data not recommended for monitoring change. Right total hip: 0.812 g/cm2, T-score -1.1 Change from prior: Loss of 0.9%. The World Health Organization has defined the following categories based on bone density: Normal bone density: T-score equal to or greater than -1.0 Osteopenia: T-score between -1.0 and -2.5 Osteoporosis: T-score equal to or less than -2.5 FRAX (or Comparable) Fracture Risk Assessment: 10 Year Probability of Fracture: Major Osteoporotic Fracture: 17% Hip Fracture: 3.1% (Note: FRAX is not to be reported in setting of normal range bone density, osteoporosis on DEXA, known history of osteoporosis, prior osteoporotic hip or vertebral fracture, or for any patient undergoing pharmacological treatment for bone loss.) The National Osteoporosis Foundation (NOF) recommends pharmacological treatment for patients with a FRAX 10-year risk of 3% or higher for a hip fracture, or 20% or higher for a major osteoporotic fracture, to prevent osteoporosis and reduce fracture risk. The patient does meet the pharmacological treatment recommendations for prevention of osteoporosis. BD/Dexa Bone Density Study IMPRESSION: OSTEOPENIA. Recommend follow-up as clinically warranted. Reading Location: [place] [address] CC: Dr. Aicha Blackwood DO Manager Policy: Signed Normal [facility] SCRN MAMM (CAD)W/FREDDIE BILATo n 11-06-2024 SCRN MAMM (CAD)W/FREDDIE BILAT [facility] Imaging Services [address] [place] [id number] SCRN MAMM (CAD)W/FREDDIE BILAT MR#: [id number] Acct: [id number] Name: ANTONIO DECKER Rep #: [id number] : 1945 F 79 From: Juanpablo burk MD PCP: Dr. Aicha Blackwood DO Status: [facility] Study: SCRN MAMM (CAD)W/FREDDIE BILAT Date of Exam: 05/01 Exam# [id number] Ordering Dr: Aicha Blackwood DO EXAM: SCRN MAMM (CAD)W/FREDDIE BILAT DATE: 11/06/2024 CLINICAL HISTORY: F, Age 79 y/o , SCREENING No family history. TECHNIQUE: Procedure Code: BISMWCADBTOM Modality: MG Procedure: SCRN MAMM (CAD)W/FREDDIE BILAT COMPARISON: Prior exam(s) dated November 04, 2023.. FINDINGS: TISSUE DENSITY: The breasts are heterogeneously dense, which may obscure small masses. Bilateral Breast Mammographic Findings: No significant masses, calcifications or other abnormalities are identified. Stable small benign- appearing bilateral axillary lymph nodes. No suspicious masses, areas of developing architectural distortion, or suspicious calcifications. There has been no significant interval change. BI/SCRN MAMM (CAD)W/FREDDIE BILAT IMPRESSION: Stable bilateral screening mammogram. OVERALL FINAL ASSESSMENT BI-RADS 2: BENIGN RECOMMENDATION: Routine annual follow-up in 1 Year A letter with findings and recommendations will be mailed to the patient. Reading Location: [place] [address] CC: Dr. Aicha Blackwood DO Manager Policy: Signed Normal [facility] Chiropractic Reporton 2024 Chiropractic Report [facility] Chiropractic [address] [place] [address] OFFICE VISIT Date of Service: 10/30/24 MR#: [id number] Acct: [id number] Name: ANTONIO DECKER Rep #: [id number] : 1945 Provider: JOSIAS Rutherford Age/Sex: 79/F Location: [facility] Status: Signed Intake Vital Signs 10/08/24 14:01 10/17/24 13:23 Height 5 ft 5 in 5 ft 5 in Weight: 137 lb BMI 22.8 BP 122/80 H Pulse 70 Temp 98.3 F Intake Visit Reasons: Back pain Chief Complaint: neck and low back discomfort Is patient in pain?: Yes (neck and low back ) Pain scale (1-10): 1 Allergies ciprofloxacin Allergy (Intermediate, Verified 10/30/24 13:06) Other amoxicillin (Amoxicillin) Allergy (Verified 10/30/24 13:06) Hives clarithromycin Allergy (Verified 10/30/24 13:06) Rash naproxen Allergy (Verified 10/30/24 13:06) Hives nizatidine (From Axid) Allergy (Verified 10/30/24 13:06) Hives Sulfa (Sulfonamide Antibiotics) Allergy (Verified 10/30/24 13:06) Rash latex Adverse Reaction (Verified 10/30/24 13:06) Rash levofloxacin (From Levaquin) Adverse Reaction (Verified 10/30/24 13:06) Other Medications ???Medication ???Instructions ???Recorded ???Confirmed ???Type diclofenac sodium 1 % topical gel 100 g TP PRN PRN Pain 07/11/18 History fluticasone propionate 50 2 spray NASAL DAILY 07/11/1810/30 History mcg/actuation nasal spray,suspension silva Ritchie B.an imalis 10 1 ea PO DAILY 12/05/19 10/30/24 H istory billion cell capsule ascorbic acid (vitamin C) 500 mg 500 mg PO BID 12/05/19 10/30/24 Hi story capsule biotin 5 mg tablet 5 mg PO DAILY 12/05/19 10/30/24 Hi story cetirizine 10 mg tablet (Zyrtec) 10 mg PO DAILY 11/20/21 10/30/24 H istory calcitriol 0.25 mcg capsule 0.25 mcg PO QDAY 03/15/24 10/30/24 History cod liver oil 1 cap PO .6xday 03/15/24 10/30/24 History cranberry 500 mg capsule 500 mg PO TID 03/15/24 10/30/24 Hi story estrogen ring vaginal 03/15/24 10/30/24 History magnesium 250 mg tablet 400 mg PO DAILY 03/15/24 10/30/24 History rosuvastatin 5 mg tablet 5 mg PO QDAY 03/15/24 10/30/24 His tory budesonide 3 mg 3 mg PO .COMPLEX #210 ea 05/08/24 10/30/24 Rx capsule,delayed,extended release ondansetron HCl 4 mg tablet 4 mg PO .COMPLEX #5 tabs 05/08/24 10/30/24 Rx [id number] 140 gram-sod sulfate 9 See Rx Instructions PO .COMPLEX #3 05/08/24 10/30/24 Rx gram-NaCl 5.2gram-KCl-C oral pwdr ea packs (Plenvu) Have you fallen in the past year?: No PFSH Medical History Urinary tract infection Vaginal atrophy Osteoarthritis Osteopenia Hypoglycemia Coronary artery disease FH: cataracts Seasonal allergies Anxiety Diverticulosis of colon Diarrhea Osteoporosis GERD (gastroesophageal reflux disease) History of reactive hypoglycemia History of UTI Family History Other Arthritis Bowel disease Heart disease Hyperlipidemia Osteoporosis Respiratory disease Suicide attempt Thyroid disorder Social History Smoking Status: Former smoker alcohol intake: current alcohol intake frequency: a few times a week Alcohol type: wine substance use type: former substance user Date of last use: marijuana and amphetamines in her 20's what type of physical activity do you participate in: walking and weight training frequency: 5-6 times per week HPI Back pain Chief Complaint: low back and neck pain Visit Number: 9 Details: ANTONIO DECKER is a 79 year old female here to follow up for ongoing neck and back pain. Pt. reports her last adjustment and acu session was helpful. She states her neck is mildly tight, she denies ARRIAGA's or restricted ROM. She rates her neck pain 1/10 today. She states her left low back pain is a mild ache and is much less frequent and less intense. She rates her low back pain 1/10 today. She continues to get massages weekly and is doing PT for balance. She states prolonged periods of walking and standing aggravate her pain and discomfort. Pt. denies new injury, numbness or tingling. She stays active, goes to the gym, does her PT exercises and stretches at home. She reports chiropractic adjustments are helpful in relieving some her pain and discomfort but it gradually returns. Location: low back/neck Duration: intermittent Aggravating or associated factors: bending,standing,sleepin g Relieving factors: chiro,massage,acu Pain Quality: aching and dull Exam Musc General: Yes normal gait, joint tenderness and decreased range of motion; No normal posture Cervical Spine: Yes cervical muscular tenderness bilateral lower , Yes cervical spasm left greater than right diffuse trapezius, par (more content not included)... Normal [facility] Inital Evaluation (1) - PTon 10-22-2024 Inital Evaluation (1) - PT [facility] Physical Therapy [facility] [address] [place] [address] / REHABILITATION SERVICES INITIAL EVALUATION MR#: [id number] Acct: [id number] Name: ANTONIO DECKER Rep #: [id number] : 1945 79 From: Adrianna OSBORN Referring Dr.: Dr. Aicha Blackwood DO Status: REG R CR Insurance: MEDICARE PART A B [employer] Patient's Visit Information Visit Information Visit Information: ANTONIO DECKER is a 79 year old F referred to Physical Therapy by Dr. Aicha Blackwood DO with a diagnosis of Balance Issues. Date of Evaluation: 10/22/24 Physical Therapist: IRENA Cotton Visit Plan Frequency: 2x /Week Duration: 6 Weeks Plan: 2X/ week for 4-6 weeks for gait training with head turns, stepping over objects, standing on foam with EO and head turns and EC, walking on grass or uneven surfaces, LE functional strength with HEP Pt has meniere's and H/O BPPV. Subjective Subjective: Pt reports that she has had no falls in the last 6 months. She feels off balance sometimes. When it happens she will feel likes she wants to veer. In an open area where there is nothing she can touch she felt more insecure. She notices that if she turns her head too fast she will be off balance. 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 She notices that she will not walk right well if L hip is flared. She has meniers that affects her hearing. If she is walking someone she feels that she wants to walk on their L and feels more secure. If she does not sleep well then that will affect it. She has had BPPV in the past on the L ear. She can sleep on her L but her shoulder on her L is bad. Objective Objective: Gait: Walks with decreased hip ext and some increase veering. Heel and Toe raises: Pt is able to heel and toe raise LE MMT: R hip flexion 12.7 and L 10.3 R knee ext 18.5 and L 17.2 R knee flex 11.9 and L 8.7 FGA: 21 CATSIB: 85 VOR: No dizziness with smooth pursuit horizontal X 30 seconds or head and eyes move together in sitting X 30 seconds Balance/Special Test Scores Functional Gait Assessment Score: 21 % Disability: 30.0000 CATSIB Score (Max score 120 seconds): 85 Dizziness Score: 12 Goals Goal 1:: I HEP Goal Time Frame: 6-8 Weeks Goal 2:: Be able to walk with no veering with gait 100 feet Goal Time Frame: 6-8 Weeks Goal 3:: Increase balance with head turns and improve overall balance on FGA (score was 21 at eval). Goal Time Frame: 6-8 Weeks Goal 4:: Be able to walk on grass with horizontal and vertical head turns without LOB Goal Time Frame: 6-8 Weeks Goal 5:: Increase vestibular input on blue foam (increase CATSIB and score was 85 on eval) Goal Time Frame: 6-8 Weeks Rehabilitation Potential Rehabilitation Potential: Good Anticipated Interventions Patient/Client Instruction: Educate patient on: Condition and Plan of Care For the Purpose of:: To improve muscle performance and motor function, To improve ability to perform ADL's, To increase tolerance to activity/condition/posit ion, To improve performance and independence with ADL's, To improve ability of physical actions for home/community/work/leis ure, To improve gait and locomotor functions and To improve safety with gait Therapeutic Exercise to Include: Strength training, Endurance training, Balance training, Gait and locomotor training and via Neurocom Balance Mas For the Purpose of:: To improve muscle performance and motor function, To improve ability to perform ADL's, To improve gait and locomotor functions, To improve health of tissue, To improve endurance, To improve balance and To improve safety with gait Functional Training to Include: Gait training For the Purpose of:: To improve gait and locomotor functions and To improve safety with gait Text: Thank you for the opportunity to evaluate your patient. For Medicare and Medicare HMO plans, please review the plan of care and approve it. It will need to be FAXED BACK to us at [phone] for Medicare purposes. For Medicare only, by signing this I certify the plan of care. Please let me know if there are questions or concerns regarding this plan of care. Physician Signature: Date: ____ 10/22/24 1048 CC: Dr. Aicha Blackwood DO Signed Normal [facility] MR/Pelon 10-17-2024 MR/DARREL [facility] [address], [address] [place] [address] OFFICE VISIT Date of Service: 10/17/24 MR#: [id number] Acct: [id number] Name: ANTONIO DECKER Rep #: [id number] : 1945 Provider: Dr. Narcisa Garcia i, MD Age/Sex: 79/F Location: [facility] Status: Signed with Addenda ADDENDUM by Dr. Narcisa Perez MD on 01/02/25 at 1316 HPI Details: ANTONIO DECKER, is a 80 F who presents to the office today for Estring change. Please note that the patient brought the Estring to the appointment and it was not provided for by our office. 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 Is patient in pain?: No Allergies ciprofloxacin Allergy (Intermediate, Verified 10/08/24 13:13) Other amoxicillin (Amoxicillin) Allergy (Verified 10/08/24 13:13) Hives clarithromycin Allergy (Verified 10/08/24 13:13) Rash naproxen Allergy (Verified 10/08/24 13:13) Hives nizatidine (From Axid) Allergy (Verified 10/08/24 13:13) Hives Sulfa (Sulfonamide Antibiotics) Allergy (Verified 10/08/24 13:13) Rash latex Adverse Reaction (Verified 10/08/24 13:13) Rash levofloxacin (From Levaquin) Adverse Reaction (Verified 10/08/24 13:13) Other Have you fallen in the past year?: No [facility] Medical History (Updated 10/23/24 @ 00:[address] Narcisa Perez MD) Urinary tract infection Vaginal atrophy Osteoarthritis Osteopenia Hypoglycemia Coronary artery disease FH: cataracts Seasonal allergies Anxiety Diverticulosis of colon Diarrhea Osteoporosis GERD (gastroesophageal reflux disease) History of reactive hypoglycemia History of UTI Family History Other Arthritis Bowel disease Heart disease Hyperlipidemia Osteoporosis Respiratory disease Suicide attempt Thyroid disorder Social History Smoking Status: Former smoker alcohol intake: current alcohol intake frequency: a few times a week Alcohol type: wine substance use type: former substance user Date of last use: marijuana and amphetamines in her 20's what type of physical activity do you participate in: walking and weight training frequency: 5-6 times per week HPI HPI Urology Chief Complaint: E-string change Details: ANTONIO DECKER, is a 79 F. The patient is here for a routine every 3 month Estring change. She is doing well with the Estring. She has had no urinary tract infections or vaginitis since her last visit. She has not had any vaginal bleeding or hematuria. She has no new urologic issues to discuss today. ROS Const Constitutional: No chills, fatigue, fever(s), headache(s), night sweats, weakness, weight change, abnormal sleep pattern or change in appetite Eyes Eyes: No change in vision ENT ENT: No headache(s) or dry mouth Resp Respiratory: No cough, chest congestion, shortness of breath or wheezing Cardio Cardiology: Positive for other (No chest pain.); No shortness of breath, irregular heart rhythm or lightheadedness Gastro GI: Positive for other (No nausea.); No abdominal pain, change in bowel habits, constipation, diarrhea or vomiting Musc Musculoskeletal: Positive for abnormal gait Skin Skin: No yellowing of the eye, lesions, itchy eyes, rash or skin ulcer Neuro Neurology: Positive for abnormal gait; No confusion, dizziness, weakness, headache(s) or memory loss Psych Psychiatric: No abnormal sleep pattern, No change in appetite, No confusion and No memory loss Endo Endocrine: No fatigue, increased thirst/drinking or weight change Aller/Imm Allergy/Immunologic: No itchy eyes or wheezing Lewis/Lymp Hematologic/Lymphatic: No easy bleeding, easy bruising or enlarged lymph nodes Exam Const General: cooperative, healthy appearing, comfortable and no acute distress HENMT Head: normocephalic and atraumatic Ears: hearing grossly normal bilaterally and external ears normal Nose: external nose normal Eyes General: appearance normal, both eyes and all related structures Neck Neck: normal visual inspection and trachea midline Chest Chest palpation inspection: normal inspection of the chest Resp Effort Inspection: normal respiratory effort, able to speak in complete sentences and (more content not included)... Normal [facility] Chiropractic Reporton 2024 Chiropractic Report [facility] [place] [place] [address] OFFICE VISIT Date of Service: 10/08/24 MR#: [id number] Acct: [id number] Name: ANTONIO DECKER Rep #: [id number] : 1945 Provider: JOSIAS Rutherford Age/Sex: 79/F Location: [facility] Status: Signed Intake Vital Signs 06/06/24 15:18 Height 5 ft 5 in Intake Visit Reasons: Back pain Chief Complaint: neck and low Back pain Is patient in pain?: Yes (left neck) Pain scale (1-10): 2 Allergies ciprofloxacin Allergy (Intermediate, Verified 10/08/24 13:13) Other amoxicillin (Amoxicillin) Allergy (Verified 10/08/24 13:13) Hives clarithromycin Allergy (Verified 10/08/24 13:13) Rash naproxen Allergy (Verified 10/08/24 13:13) Hives nizatidine (From Axid) Allergy (Verified 10/08/24 13:13) Hives Sulfa (Sulfonamide Antibiotics) Allergy (Verified 10/08/24 13:13) Rash latex Adverse Reaction (Verified 10/08/24 13:13) Rash levofloxacin (From Levaquin) Adverse Reaction (Verified 10/08/24 13:13) Other Have you fallen in the past year?: No PFSH Medical History Osteoarthritis Osteopenia Hypoglycemia Coronary artery disease FH: cataracts Seasonal allergies Anxiety Diverticulosis of colon Diarrhea Osteoporosis GERD (gastroesophageal reflux disease) History of reactive hypoglycemia History of UTI Family History Other Arthritis Bowel disease Heart disease Hyperlipidemia Osteoporosis Respiratory disease Suicide attempt Thyroid disorder Social History Smoking Status: Former smoker alcohol intake: current alcohol intake frequency: a few times a week Alcohol type: wine substance use type: former substance user Date of last use: marijuana and amphetamines in her 20's what type of physical activity do you participate in: walking and weight training frequency: 5-6 times per week HPI Back pain Chief Complaint: low back and neck pain Visit Number: 8 Details: ANTONIO DECKER is a 79 year old female here to follow up for ongoing neck and back pain. Pt. reports a flare up of left neck pain a week ago. She states it was tight with restricted ROM. She had a massage last week which was helpful to loosen up her stiffness. She does still have mild left neck pain. She rates her neck pain 2/10 today. She states her left low back pain is less frequent and less intense. She rates her low back pain 1/10 today and describes it as is achy and sore. She continues to get massages weekly. She states prolonged periods of walking and standing aggravate her pain and discomfort. Pt. denies new injury, numbness or tingling. She stays active, goes to the gym, does her PT exercises and stretches at home. She reports chiropractic adjustments and acupuncture are helpful in relieving some her pain and discomfort but it gradually returns. Location: low back/neck Duration: intermittent Aggravating or associated factors: bending,standing,sleepin g Relieving factors: chiro,massage,acu Pain Quality: aching and dull Exam Musc General: Yes normal gait, joint tenderness and decreased range of motion; No normal posture Cervical Spine: Yes cervical muscular tenderness left greater than right diffuse , Yes cervical spasm left greater than right diffuse trapezius, paracervical muscles and intrinsics and Yes misalignment misalignment: C6 and C7 Thoracic/Lumber: No thoracic and lumbar spine normal to inspection (High Left Shoulder), Yes paraspinal tenderness bilaterally in the upper thoracic, in the mid thoracic and in the lower thoracic and on the left greater than right (lumbopelvic), Yes thoraco-lumbar spasm on the right greater than left (trap, rhomboid, psoas) and on the left greater than right (paraspinal (L3-L5), glute) and Yes misalignment T2, T3, T4, L3, L4, L5 and LIL Sacroiliac joints: on the left tender to palpation Office Procedures Procedures - Chiropractic Procedures Manipulation: Lumbar L3, Thoracic T2 and T10 and Pelvis LIL Manipulation: 3-4 regions Patient Response: positive Details: ???Acupuncture Patient instructions/Risk: Patient instructed not to move and informed of risks of moving. Risks associated with the procedure and the specific location were reviewed with the patient and consent was obtained. Acupuncture performed: E-stim was utilized. Acupoints Treated: GB20/21,BL10,SI14 Sterile, single use, solid filament needles were inserted at various depths and angles to release tight tissue, improve microcirculation and remove neuro-noxious chemicals via a myofascial twitch response. [place] were inserted, needle manipulation was performed. Needle removal was performed and pressure was applied when necessary. Hannah (more content not included)... Normal [facility] Chiropractic Reporton 2024 Chiropractic Report [facility] [facility] [address] [place] [address] OFFICE VISIT Date of Service: 09/24/24 MR#: [id number] Acct: [id number] Name: ANTONIO DECKER YOAN Rep #: [id number] : 1945 Provider: JOSIAS Rutherford Age/Sex: 79/F Location: [facility] Status: Signed Intake Vital Signs 06/06/24 15:18 Height 5 ft 5 in Intake Visit Reasons: Back pain Chief Complaint: neck and Back pain Is patient in pain?: Yes (neck and low back ) Pain scale (1-10): 2 Allergies ciprofloxacin Allergy (Intermediate, Verified 09/24/24 09:37) Other amoxicillin (Amoxicillin) Allergy (Verified 09/24/24 09:37) Hives clarithromycin Allergy (Verified 09/24/24 09:37) Rash naproxen Allergy (Verified 09/24/24 09:37) Hives nizatidine (From Axid) Allergy (Verified 09/24/24 09:37) Hives Sulfa (Sulfonamide Antibiotics) Allergy (Verified 09/24/24 09:37) Rash latex Adverse Reaction (Verified 09/24/24 09:37) Rash levofloxacin (From Levaquin) Adverse Reaction (Verified 09/24/24 09:37) Other Medications ???Medication ???Instructions ???Recorded ???Confirmed ???Type diclofenac sodium 1 % topical gel 100 g TP PRN PRN Pain 07/11/18 History fluticasone propionate 50 2 spray NASAL DAILY 07/11/1809/24 History mcg/actuation nasal spray,suspension Lsilva madden B.an imalis 10 1 ea PO DAILY 12/05/19 09/24/24 H istory billion cell capsule ascorbic acid (vitamin C) 500 mg 500 mg PO BID 12/05/19 09/24/24 Hi story capsule biotin 5 mg tablet 5 mg PO DAILY 12/05/19 09/24/24 Hi story cetirizine 10 mg tablet (Zyrtec) 10 mg PO DAILY 11/20/21 09/24/24 H istory calcitriol 0.25 mcg capsule 0.25 mcg PO QDAY 03/15/24 09/24/24 History cod liver oil 1 cap PO .6xday 03/15/24 09/24/24 History cranberry 500 mg capsule 500 mg PO TID 03/15/24 09/24/24 Hi story estrogen ring vaginal 03/15/24 09/24/24 History magnesium 250 mg tablet 400 mg PO DAILY 03/15/24 09/24/24 History rosuvastatin 5 mg tablet 5 mg PO QDAY 03/15/24 09/24/24 His tory budesonide 3 mg 3 mg PO .COMPLEX #210 ea 05/08/24 09/24/24 Rx capsule,delayed,extended release ondansetron HCl 4 mg tablet 4 mg PO .COMPLEX #5 tabs 05/08/24 09/24/24 Rx [id number] 140 gram-sod sulfate 9 See Rx Instructions PO .COMPLEX #3 05/08/24 09/24/24 Rx gram-NaCl 5.2gram-KCl-C oral pwdr ea packs (Plenvu) Have you fallen in the past year?: No PFSH Medical History Osteoarthritis Osteopenia Hypoglycemia Coronary artery disease FH: cataracts Seasonal allergies Anxiety Diverticulosis of colon Diarrhea Osteoporosis GERD (gastroesophageal reflux disease) History of reactive hypoglycemia History of UTI Family History Other Arthritis Bowel disease Heart disease Hyperlipidemia Osteoporosis Respiratory disease Suicide attempt Thyroid disorder Social History Smoking Status: Former smoker alcohol intake: current alcohol intake frequency: a few times a week Alcohol type: wine substance use type: former substance user Date of last use: marijuana and amphetamines in her 20's what type of physical activity do you participate in: walking and weight training frequency: 5-6 times per week HPI Back pain Chief Complaint: low back and neck pain Visit Number: 7 Details: ANTONIO DECKER is a 79 year old female here to follow up for ongoing neck and back pain. Pt. states the acupuncture has been helping and feels she has been improving. She c/o mild left low back pain and states her left low back pain is less frequent and less intense. She rates her low back pain 1/10 today and describes it as is achy and sore. She is also experiencing mild neck pain and stiffness that is worse on the left side. She rates her neck pain 2/10. She continues to get massages weekly. She is able to sleep much better. She states prolonged periods of walking and standing aggravate her pain and discomfort. Pt. denies new injury, numbness or tingling. She stays active, goes to the gym, does her PT exercises and stretches at home. She reports chiropractic adjustments and acupuncture are helpful in relieving some her pain and discomfort but it gradually returns. Location: low back/neck Duration: intermittent Aggravating or associated factors: bending,standing,sleepin g Relieving factors: chiro,massage,acu Pain Quality: aching and dull Exam Musc General: Yes normal gait, joint tenderness and decreased range of motion; No normal posture Cervical Spine: Yes cervical muscular tenderness left greater than right diffuse , Yes cervical spasm bilateral lower trapezius and Yes misalignment misalignment: C6 and C7 Thoracic/Lumber: No t (more content not included)... Normal [facility] Reporton 2024 Chiropractic Report [facility] [address] [place] [address] OFFICE VISIT Date of Service: 09/06/24 MR#: [id number] Acct: [id number] Name: ANTONIO DECKER Rep #: [id number] : 1945 Provider: JOSIAS Rutherford Age/Sex: 79/F Location: [facility] Status: Signed Intake Vital Signs 06/06/24 15:18 Height 5 ft 5 in Intake Visit Reasons: Back pain Chief Complaint: neck and Back pain Is patient in pain?: Yes (left low back, neck) Pain scale (1-10): 4 Allergies ciprofloxacin Allergy (Intermediate, Verified 09/06/24 11:09) Other amoxicillin (Amoxicillin) Allergy (Verified 09/06/24 11:09) Hives clarithromycin Allergy (Verified 09/06/24 11:09) Rash naproxen Allergy (Verified 09/06/24 11:09) Hives nizatidine (From Axid) Allergy (Verified 09/06/24 11:09) Hives Sulfa (Sulfonamide Antibiotics) Allergy (Verified 09/06/24 11:09) Rash latex Adverse Reaction (Verified 09/06/24 11:09) Rash levofloxacin (From Levaquin) Adverse Reaction (Verified 09/06/24 11:09) Other Medications ???Medication ???Instructions ???Recorded ???Confirmed ???Type diclofenac sodium 1 % topical gel 100 g TP PRN PRN Pain 07/11/18 History fluticasone propionate 50 2 spray NASAL DAILY 07/11/1809/06 History mcg/actuation nasal spray,suspension silva RitchieB.an imalis 10 1 ea PO DAILY 12/05/19 09/06/24 H istory billion cell capsule ascorbic acid (vitamin C) 500 mg 500 mg PO BID 12/05/19 09/06/24 Hi story capsule biotin 5 mg tablet 5 mg PO DAILY 12/05/19 09/06/24 Hi story cetirizine 10 mg tablet (Zyrtec) 10 mg PO DAILY 11/20/21 09/06/24 H istory calcitriol 0.25 mcg capsule 0.25 mcg PO QDAY 03/15/24 09/06/24 History cod liver oil 1 cap PO .6xday 03/15/24 09/06/24 History cranberry 500 mg capsule 500 mg PO TID 03/15/24 09/06/24 Hi story estrogen ring vaginal 03/15/24 09/06/24 History magnesium 250 mg tablet 400 mg PO DAILY 03/15/24 09/06/24 History rosuvastatin 5 mg tablet 5 mg PO QDAY 03/15/24 09/06/24 His tory budesonide 3 mg 3 mg PO .COMPLEX #210 ea 05/08/24 09/06/24 Rx capsule,delayed,extended release ondansetron HCl 4 mg tablet 4 mg PO .COMPLEX #5 tabs 05/08/24 09/06/24 Rx [id number] 140 gram-sod sulfate 9 See Rx Instructions PO .COMPLEX #3 05/08/24 09/06/24 Rx gram-NaCl 5.2gram-KCl-C oral pwdr ea packs (Plenvu) Have you fallen in the past year?: No PFSH Medical History Osteoarthritis Osteopenia Hypoglycemia Coronary artery disease FH: cataracts Seasonal allergies Anxiety Diverticulosis of colon Diarrhea Osteoporosis GERD (gastroesophageal reflux disease) History of reactive hypoglycemia History of UTI Family History Other Arthritis Bowel disease Heart disease Hyperlipidemia Osteoporosis Respiratory disease Suicide attempt Thyroid disorder Social History Smoking Status: Former smoker alcohol intake: current alcohol intake frequency: a few times a week Alcohol type: wine substance use type: former substance user Date of last use: marijuana and amphetamines in her 20's what type of physical activity do you participate in: walking and weight training frequency: 5-6 times per week HPI Back pain Chief Complaint: low back and neck pain Visit Number: 7 Details: ANTONIO DECKER is a 79 year old female here to follow up for ongoing neck and back pain. Pt. continues to c/o left low back pain.She states her left low back pain is less frequent and slightly less intense. She rates her pain 2/10 today and describes it as is achy and sore. She is also experiencing neck pain and stiffness that is worse on the left side. She rates her neck pain 4/10. She continues to get massages weekly. She states that she is sleeping better since last treatment as the pain is not going down her leg as often. She is able to sleep much better. Pt. denies new injury, numbness or tingling. She stays active, goes to the gym, does her PT exercises and stretches at home. She reports chiropractic adjustments and acupuncture are helpful in relieving some her pain and discomfort but it gradually returns. Location: low back/neck Duration: intermittent Aggravating or associated factors: bending,standing,sleepin g Relieving factors: chiro,massage,acu Pain Quality: aching and dull Exam Musc General: Yes normal gait, joint tenderness and decreased range of motion; No normal posture Cervical Spine: Yes cervical muscular tenderness left greater than right lower , Yes cervical spasm bilateral lower trapezius and Yes misalignment misalignment: C6 and C7 Thoracic/Lumber: No thoracic and lumbar spine normal to inspection (High Left S (more content not included)... Normal [facility] Duplex ultrasound of renal a rtery reportOrdered By: Edwardo Calderon on 09-06-2024 Study report [facility] [address] 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 RSV/EDV. Left renal artery proximal PSV/EDV Right renal artery proximal 133/27.7 102.9/30.5 . PSV/EDV. Left renal artery mid 107.3/28.3 Right renal artery mid 111.1/25.5 PSV/EDV . PSV/EDV. Left renal artery distal 149/43.7 Right renal artery distal 103.2/24 PSV/EDV. PSV/EDV. Left RAR 1.65. Right RAR 1.47. Left Renal Parenchyma Right Renal Parenchyma Left upper pole medulla 33/8 PSV/EDV . Upper Pole Medula 27.3/6.9 PSV/EDV. Left upper pole medulla EDR 0.2 . Right upper pole medulla EDR 0.3 . Left upper pole medulla R.I. 0.76 . Right upper pole medulla R.I. 0.75 . UPCortex 23.6/5.6 PSV/EDV. Upper Benito Cortx 20.7/4.7 PSV/EDV. Left upper pole cortex EDR 0.2 . Right upper pole cortex EDR 0.2 . Left upper pole cortex R.I. 0.76 . Right upper pole cortex R.I. 0.77 . Left lower Pole medulla 26.9/7.5 Right lower Pole medulla 27.8/6.4 PSV/EDV . PSV/EDV . Left lower pole medulla EDR 0.3 . Right lower pole medulla EDR 0.2 . Left lower pole medulla R.I. 0.72 . Right lower pole medulla R.I. 0.77 . Lower Pole Cortx 15.1/4.7 PSV/EDV. Lower Pole Cortex 19/5.3 PSV/EDV. Left lower pole cortex EDR 0.3 . Right lower pole cortex EDR 0.3 . Left lower pole cortex R.I. 0.69 . Right lower pole cortex R.I. 0.72 . Left Renal Hilar Right Renal Hilar LTHilar avg 82.2/20.7 PSV/EDV . Right Hilar avg 70.9/11.5 PSV/EDV. Left hilar acceleration time 60 m/sec. Right hilar acceleration time 60 m/sec. Left Renal Dimensions Right Renal Dimensions Left kidney size 11.02 cm . Right kidney size 10.52 cm . Left cortical dimension 2.08 cm . Right cortical dimension 1.44 cm . Right renal artery appears to measure 0.60 cm at its greatest diameter. Aorta Proximal abdominal aorta 1.87 x 1.79 cm . Proximal abdominal aorta peak systolicvelocity is 105.1 cm/sec . Distal abdominal aorta 1.29 x 1.27 cm . Distal abdominal aorta peak systolic velocity is 90.4 cm/sec . VL/Renal Artery Duplex Ultrasound Interpretation Summary Right renal artery patent with normal velocities and no evidence of stenosis. Left renal artery patent with normal velocities and no evidence of stenosis. Right renal vein patent. Left renal vein patent. Right kidney normal in size. Left kidney normal in size. Normal caliber renal arteries bilateral Ordering Physician: Aicha Blackwood Referring Physician: Aicha Blackwood Performed By: Sarita Winter RVT 09/06/24 1518 Date _ Edwardo Calderon MD CC: Dr. Aicha Blackwood DO ~ Date Dictated: 09/06/24805 Date Transcribed: 09/06/241517 Manager Policy: Signed [facility] Work Phone: Renal Artery Duplex Ultrasou ndon 09-06-2024 Renal Artery Duplex Ultrasound [facility] [address] [place] [address] Renal Artery Duplex Ultrasound 09/06/24805 MR#: [id number] Acct: [id number] Name: ANTONIO DECKER Rep #: [id number] : 1945 79 From: Edwardo Calderon MD Attending Dr: Dr. 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 RSV/EDV. Left renal artery proximal PSV/EDV Right renal artery proximal 133/27.7 102.9/30.5 . PSV/EDV. Left renal artery mid 107.3/28.3 Right renal artery mid 111.1/25.5 PSV/EDV . PSV/EDV. Left renal artery distal 149/43.7 Right renal artery distal 103.2/24 PSV/EDV. PSV/EDV. Left RAR 1.65. Right RAR 1.47. Left Renal Parenchyma Right Renal Parenchyma Left upper pole medulla 33/8 PSV/EDV . Upper Pole Medula 27.3/6.9 PSV/EDV. Left upper pole medulla EDR 0.2 . Right upper pole medulla EDR 0.3 . Left upper pole medulla R.I. 0.76 . Right upper pole medulla R.I. 0.75 . UP Cortex 23.6/5.6 PSV/EDV. Upper Benito Cortx 20.7/4.7 PSV/EDV. Left upper pole cortex EDR 0.2 . Right upper pole cortex EDR 0.2 . Left upper pole cortex R.I. 0.76 . Right upper pole cortex R.I. 0.77 . Left lower Pole medulla 26.9/7.5 Right lower Pole medulla 27.8/6.4 PSV/EDV . PSV/EDV . Left lower pole medulla EDR 0.3 . Right lower pole medulla EDR 0.2 . Left lower pole medulla R.I. 0.72 . Right lower pole medulla R.I. 0.77 . Lower Pole Cortx 15.1/4.7 PSV/EDV. Lower Pole Cortex 19/5.3 PSV/EDV. Left lower pole cortex EDR 0.3 . Right lower pole cortex EDR 0.3 . Left lower pole cortex R.I. 0.69 . Right lower pole cortex R.I. 0.72 . Left Renal Hilar Right Renal Hilar LT Hilar avg 82.2/20.7 PSV/EDV . Right Hilar avg 70.9/11.5 PSV/EDV. Left hilar acceleration time 60 m/sec. Right hilar acceleration time 60 m/sec. Left Renal Dimensions Right Renal Dimensions Left kidney size 11.02 cm . Right kidney size 10.52 cm . Left cortical dimension 2.08 cm . Right cortical dimension 1.44 cm . Right renal artery appears to measure 0.60 cm at its greatest diameter. Aorta Proximal abdominal aorta 1.87 x 1.79 cm . Proximal abdominal aorta peak systolic velocity is 105.1 cm/sec . Distal abdominal aorta 1.29 x 1.27 cm . Distal abdominal aorta peak systolic velocity is 90.4 cm/sec . VL/Renal Artery Duplex Ultrasound Interpretation Summary Right renal artery patent with normal velocities and no evidence of stenosis. Left renal artery patent with normal velocities and no evidence of stenosis. Right renal vein patent. Left renal vein patent. Right kidney normal in size. Left kidney normal in size. Normal caliber renal arteries bilateral Ordering Physician: Aicha Blackwood Referring Physician: Aicha Blackwood Performed By: Sarita Winter Reinier 09/06/24 1518 Date Edwardo Calderon MD CC: Dr. Aicha Blackwood DO Date Dictated: 09/06/2406 Date Transcribed: 09/06/241517 Manager Policy: Signed Normal [facility] Reporton 2024 Chiropractic Report [facility] [address] [place] [address] OFFICE VISIT Date of Service: 08/28/24 MR#: [id number] Acct: [id number] Name: ANTONIO DECKER Rep #: [id number] : 1945 Provider: JOSIAS Rutherford Age/Sex: 79/F Location: [facility] Status: Signed Intake Vital Signs 06/06/24 15:18 Height 5 ft 5 in Intake Visit Reasons: Back pain Chief Complaint: neck and Back pain Is patient in pain?: Yes Pain scale (1-10): 4 Allergies ciprofloxacin Allergy (Intermediate, Verified 08/28/24 11:34) Other amoxicillin (Amoxicillin) Allergy (Verified 08/28/24 11:34) Hives clarithromycin Allergy (Verified 08/28/24 11:34) Rash naproxen Allergy (Verified 08/28/24 11:34) Hives nizatidine (From Axid) Allergy (Verified 08/28/24 11:34) Hives Sulfa (Sulfonamide Antibiotics) Allergy (Verified 08/28/24 11:34) Rash latex Adverse Reaction (Verified 08/28/24 11:34) Rash levofloxacin (From Levaquin) Adverse Reaction (Verified 08/28/24 11:34) Other Medications ???Medication ???Instructions ???Recorded ???Confirmed ???Type diclofenac sodium 1 % topical gel 100 g TP PRN PRN Pain 07/11/18 History fluticasone propionate 50 2 spray NASAL DAILY 07/11/1808/28 History mcg/actuation nasal spray,suspension Chau,silvaBFrankiean imalis 10 1 ea PO DAILY 12/05/19 08/28/24 H istory billion cell capsule ascorbic acid (vitamin C) 500 mg 500 mg PO BID 12/05/19 08/28/24 Hi story capsule biotin 5 mg tablet 5 mg PO DAILY 12/05/19 08/28/24 Hi story cetirizine 10 mg tablet (Zyrtec) 10 mg PO DAILY 11/20/21 08/28/24 H istory calcitriol 0.25 mcg capsule 0.25 mcg PO QDAY 03/15/24 08/28/24 History cod liver oil 1 cap PO .6xday 03/15/24 08/28/24 History cranberry 500 mg capsule 500 mg PO TID 03/15/24 08/28/24 Hi story estrogen ring vaginal 03/15/24 08/28/24 History magnesium 250 mg tablet 400 mg PO DAILY 03/15/24 08/28/24 History rosuvastatin 5 mg tablet 5 mg PO QDAY 03/15/24 08/28/24 His tory budesonide 3 mg 3 mg PO .COMPLEX #210 ea 05/08/24 08/28/24 Rx capsule,delayed,extended release ondansetron HCl 4 mg tablet 4 mg PO .COMPLEX #5 tabs 05/08/24 08/28/24 Rx [id number] 140 gram-sod sulfate 9 See Rx Instructions PO .COMPLEX #3 05/08/24 08/28/24 Rx gram-NaCl 5.2gram-KCl-C oral pwdr ea packs (Plenvu) Have you fallen in the past year?: No PFSH Medical History Osteoarthritis Osteopenia Hypoglycemia Coronary artery disease FH: cataracts Seasonal allergies Anxiety Diverticulosis of colon Diarrhea Osteoporosis GERD (gastroesophageal reflux disease) History of reactive hypoglycemia History of UTI Family History Other Arthritis Bowel disease Heart disease Hyperlipidemia Osteoporosis Respiratory disease Suicide attempt Thyroid disorder Social History Smoking Status: Former smoker alcohol intake: current alcohol intake frequency: a few times a week Alcohol type: wine substance use type: former substance user Date of last use: marijuana and amphetamines in her 20's what type of physical activity do you participate in: walking and weight training frequency: 5-6 times per week HPI Back pain Chief Complaint: low back and neck pain Visit Number: 6 Details: ANTONIO DECKER is a 79 year old female here to follow up for ongoing neck and back pain. Pt. continues to c/o left low back pain.She states her left low back is achy and sore. She is experiencing neck pain and stiffness. She rates her pain 4/10. She continues to get massages weekly. She states that she is sleeping better since last treatment as the pain is not going down her leg as much. She continues to have the pain, but it is more tolerable. She also has some stress/anxiety complaints. Pt. denies new injury, numbness or tingling. She stays active, goes to the gym, does her PT exercises and stretches at home. She reports chiropractic adjustments are helpful in relieving some her pain and discomfort but it gradually returns. Location: low back/neck Duration: frequent/intermittent Aggravating or associated factors: bending,standing,sleepin g Relieving factors: chiro,massage,acu Pain Quality: aching, dull and radiating (L leg/calf) Exam Musc General: Yes normal gait, joint tenderness and decreased range of motion; No normal posture Cervical Spine: Yes cervical muscular tenderness bilateral lower , Yes cervical spasm bilateral lower trapezius and Yes misalignment misalignment: C6 and C7 Thoracic/Lumber: No thoracic and lumbar spine normal to inspection (High Left Shoulder), Yes paraspinal tenderness bilaterally in the upper tho (more content not included)... Normal [facility] Reporton 2024 Chiropractic Report [facility] [place] [address] OFFICE VISIT Date of Service: 08/23/24 MR#: [id number] Acct: [id number] Name: ANTONIO DECKER Rep #: [id number] : 1945 Provider: JOSIAS Rutherford Age/Sex: 79/F Location: [facility] Status: Signed Intake Vital Signs 06/06/24 15:18 Height 5 ft 5 in Intake Visit Reasons: Back pain Chief Complaint: neck and Back pain Is patient in pain?: Yes (neck and low back ) Pain scale (1-10): 5 Allergies ciprofloxacin Allergy (Intermediate, Verified 08/23/24 14:45) Other amoxicillin (Amoxicillin) Allergy (Verified 08/23/24 14:45) Hives clarithromycin Allergy (Verified 08/23/24 14:45) Rash naproxen Allergy (Verified 08/23/24 14:45) Hives nizatidine (From Axid) Allergy (Verified 08/23/24 14:45) Hives Sulfa (Sulfonamide Antibiotics) Allergy (Verified 08/23/24 14:45) Rash latex Adverse Reaction (Verified 08/23/24 14:45) Rash levofloxacin (From Levaquin) Adverse Reaction (Verified 08/23/24 14:45) Other Medications ???Medication ???Instructions ???Recorded ???Confirmed ???Type diclofenac sodium 1 % topical gel 100 g TP PRN PRN Pain 07/11/18 History fluticasone propionate 50 2 spray NASAL DAILY 07/11/1808/23 History mcg/actuation nasal spray,suspension silva Ritchie B.an imalis 10 1 ea PO DAILY 12/05/19 08/23/24 H istory billion cell capsule ascorbic acid (vitamin C) 500 mg 500 mg PO BID 12/05/19 08/23/24 Hi story capsule biotin 5 mg tablet 5 mg PO DAILY 12/05/19 08/23/24 Hi story cetirizine 10 mg tablet (Zyrtec) 10 mg PO DAILY 11/20/21 08/23/24 H istory calcitriol 0.25 mcg capsule 0.25 mcg PO QDAY 03/15/24 08/23/24 History cod liver oil 1 cap PO .6xday 03/15/24 08/23/24 History cranberry 500 mg capsule 500 mg PO TID 03/15/24 08/23/24 Hi story estrogen ring vaginal 03/15/24 08/23/24 History magnesium 250 mg tablet 400 mg PO DAILY 03/15/24 08/23/24 History rosuvastatin 5 mg tablet 5 mg PO QDAY 03/15/24 08/23/24 His tory budesonide 3 mg 3 mg PO .COMPLEX #210 ea 05/08/24 08/23/24 Rx capsule,delayed,extended release ondansetron HCl 4 mg tablet 4 mg PO .COMPLEX #5 tabs 05/08/24 08/23/24 Rx [id number] 140 gram-sod sulfate 9 See Rx Instructions PO .COMPLEX #3 05/08/24 08/23/24 Rx gram-NaCl 5.2gram-KCl-C oral pwdr ea packs (Plenvu) Have you fallen in the past year?: No PFSH Medical History Osteoarthritis Osteopenia Hypoglycemia Coronary artery disease FH: cataracts Seasonal allergies Anxiety Diverticulosis of colon Diarrhea Osteoporosis GERD (gastroesophageal reflux disease) History of reactive hypoglycemia History of UTI Family History Other Arthritis Bowel disease Heart disease Hyperlipidemia Osteoporosis Respiratory disease Suicide attempt Thyroid disorder Social History Smoking Status: Former smoker alcohol intake: current alcohol intake frequency: a few times a week Alcohol type: wine substance use type: former substance user Date of last use: marijuana and amphetamines in her 20's what type of physical activity do you participate in: walking and weight training frequency: 5-6 times per week HPI Back pain Chief Complaint: low back and neck pain Visit Number: 6 Details: ANTONIO DECKER is a 79 year old female here to follow up for ongoing neck and back pain. Pt. continues to c/o left low back pain and left lower leg pain.She states her left low back is achy and sore and feels as though her hips are out of alignment. She is experiencing neck pain and stiffness. She rates her pain 5/10 and c/o decreased ROM. She continues to get massages weekly. She has trouble sleeping due to her pain in her LB and L LE. Pt. denies new injury, numbness or tingling. She stays active, goes to the gym, does her PT exercises and stretches at home. She reports chiropractic adjustments are helpful in relieving some her pain and discomfort but it gradually returns. Location: low back/neck Duration: frequent/intermittent Aggravating or associated factors: bending,standing,sleepin g Relieving factors: chiro,massage Pain Quality: aching, dull and radiating (L leg/calf) Exam Musc General: Yes normal gait, joint tenderness and decreased range of motion; No normal posture Cervical Spine: Yes cervical muscular tenderness bilateral diffuse , Yes cervical spasm bilateral lower trapezius and Yes misalignment misalignment: C6 and C7 Thoracic/Lumber: No thoracic and lumbar spine normal to inspection (High Left Shoulder), Yes paraspinal tenderness bilaterally in the upper thoracic, in the mid thoracic and in the lower thoracic and on t (more content not included)... Normal [facility] Chiropractic Reporton 2024 Chiropractic Report [facility] Chiropractic [facility] [place] [address] OFFICE VISIT Date of Service: 08/09/24 MR#: [id number] Acct: [id number] Name: ANTONIO DECKER Rep #: [id number] : 1945 Provider: JOSIAS Rutherford Age/Sex: 79/F Location: [facility] Status: Signed Intake Vital Signs 06/06/24 15:18 Height 5 ft 5 in Intake Visit Reasons: Back pain Chief Complaint: neck and Back pain Is patient in pain?: Yes (low back, neck, hips) Pain scale (1-10): 2 Allergies ciprofloxacin Allergy (Intermediate, Verified 08/09/24 09:42) Other amoxicillin (Amoxicillin) Allergy (Verified 08/09/24 09:42) Hives clarithromycin Allergy (Verified 08/09/24 09:42) Rash naproxen Allergy (Verified 08/09/24 09:42) Hives nizatidine (From Axid) Allergy (Verified 08/09/24 09:42) Hives Sulfa (Sulfonamide Antibiotics) Allergy (Verified 08/09/24 09:42) Rash latex Adverse Reaction (Verified 08/09/24 09:42) Rash levofloxacin (From Levaquin) Adverse Reaction (Verified 08/09/24 09:42) Other Medications ???Medication ???Instructions ???Recorded ???Confirmed ???Type diclofenac sodium 1 % topical gel 100 g TP PRN PRN Pain 07/11/18 History fluticasone propionate 50 2 spray NASAL DAILY 07/11/1808/09 History mcg/actuation nasal spray,suspension silva RitchieBFrankiean imalis 10 1 ea PO DAILY 12/05/19 08/09/24 H istory billion cell capsule ascorbic acid (vitamin C) 500 mg 500 mg PO BID 12/05/19 08/09/24 Hi story capsule biotin 5 mg tablet 5 mg PO DAILY 12/05/19 08/09/24 Hi story cetirizine 10 mg tablet (Zyrtec) 10 mg PO DAILY 11/20/21 08/09/24 H istory calcitriol 0.25 mcg capsule 0.25 mcg PO QDAY 03/15/24 08/09/24 History cod liver oil 1 cap PO .6xday 03/15/24 08/09/24 History cranberry 500 mg capsule 500 mg PO TID 03/15/24 08/09/24 Hi story estrogen ring vaginal 03/15/24 08/09/24 History magnesium 250 mg tablet 400 mg PO DAILY 03/15/24 08/09/24 History rosuvastatin 5 mg tablet 5 mg PO QDAY 03/15/24 08/09/24 His tory budesonide 3 mg 3 mg PO .COMPLEX #210 ea 05/08/24 08/09/24 Rx capsule,delayed,extended release ondansetron HCl 4 mg tablet 4 mg PO .COMPLEX #5 tabs 05/08/24 08/09/24 Rx [id number] 140 gram-sod sulfate 9 See Rx Instructions PO .COMPLEX #3 05/08/24 08/09/24 Rx gram-NaCl 5.2gram-KCl-C oral pwdr ea packs (Plenvu) Have you fallen in the past year?: No PFSH Medical History Osteoarthritis Osteopenia Hypoglycemia Coronary artery disease FH: cataracts Seasonal allergies Anxiety Diverticulosis of colon Diarrhea Osteoporosis GERD (gastroesophageal reflux disease) History of reactive hypoglycemia History of UTI Family History Other Arthritis Bowel disease Heart disease Hyperlipidemia Osteoporosis Respiratory disease Suicide attempt Thyroid disorder Social History Smoking Status: Former smoker alcohol intake: current alcohol intake frequency: a few times a week Alcohol type: wine substance use type: former substance user Date of last use: marijuana and amphetamines in her 20's what type of physical activity do you participate in: walking and weight training frequency: 5-6 times per week HPI Back pain Chief Complaint: low back and neck pain Visit Number: 5 Details: ANTONIO DECKER is a 79 year old female here to follow up for ongoing neck and back pain. Pt. reports her hips and legs were painful and 'heavy' which was giving her trouble walking after her last adjustment. She went to her massage therapist and he said she was extremely tight. She states the massage loosened her up and she a second massage recently which was also helpful. She is experiencing neck pain and stiffness. She rates her pain 2/10 and c/o decreased ROM. She states her left low back is achy and sore and feels as though her hips are out of alignment. She is also working on her posture as far as her tendency to lean forward. She still had trouble sleeping due to her pain. Pt. denies new injury, numbness or tingling. She stays active, goes to the gym, does her PT exercises and stretches at home. She reports chiropractic adjustments are helpful in relieving some her pain and discomfort but it gradually returns. Location: low back Duration: frequent Aggravating or associated factors: bending,standing,sleepin g Relieving factors: chiro,massage Pain Quality: aching and dull Exam Musc General: Yes normal gait, joint tenderness and decreased range of motion; No normal posture Thoracic/Lumber: No thoracic and lumbar spine normal to inspection (High Left Shoulder), Yes paraspinal tenderness bilaterally in the upper thoracic, in the (more content not included)... Normal [facility] Carotid Duplex Ultrasoundon 08-02-2024 Carotid Duplex Ultrasound [facility] [address] [place] [address] Carotid Duplex Ultrasound 08/02/24 1253 MR#: [id number] Acct: [id number] Name: ANTONIO DECKER Rep #: [id number] : 1945 79 From: Carlos Field MD Attending Dr: Dr. Aicha Blackwood, Status: REG CL I Ordering Dr: Aicha Blackwood DO Date: 08/02/24 Location: [facility] Sex: F C Admitted: Reason For Study Reason For Study: Dizziness and giddiness Rt. Velocities/BP Lt. Velocities/BP Prox CCA 65.5/12.6 cm/sec. Prox CCA 100.3/20.1 cm/sec. Mid CCA 66.4/16.3 cm/sec. Mid CCA 67.4/16.8 cm/sec. Dist CCA 59.8/15.4 cm/sec. Dist CCA 72.9/19 cm/sec. Prox ICA 50.9/13.5 cm/sec. Prox ICA 56.4/11.3 cm/sec. Mid ICA 66.3/20.1 cm/sec. Mid ICA 69.6/23.4 cm/sec. Dist ICA 69.8/17 cm/sec. Dist ICA 98.1/26.7 cm/sec. Rt. ICA/CCA = 1.05. Lt. ICA/CCA = 1.46. Prox ECA 93.8/11.3 cm/sec. Prox ECA 81.7/11.3 cm/sec. Rt. Vert. 35.2/9.9 cm/sec. Lt. Vert. 45.4/11.3 cm/sec. Right Extracranial There is homogeneous, smooth atherosclerotic plaque noted in the right common carotid artery. There is heterogeneous, irregular atherosclerotic plaque noted in the right internal carotid artery. There is intimal thickening but no significant atherosclerotic plaque noted in the right external carotid artery. Antegrade flow is noted in the right vertebral artery. Left Extracranial There is homogeneous, smooth atherosclerotic plaque noted in the left common carotid artery. There is heterogeneous, irregular atherosclerotic plaque noted in the left internal carotid artery. There is intimal thickening but no significant atherosclerotic plaque noted in the left external carotid artery. Antegrade flow is noted in the left vertebral artery. Procedure Carotid Duplex 22068. This is a Carotid Duplex examination using B-mode, color flow and specral Doppler. Exam performed in department. VL/Carotid Duplex Ultrasound Interpretation Summary Mild (<50%) stenosis right extracranial internal carotid. Mild (<50%) stenosis left extracranial internal carotid. Flow within the vertebral arteries is antegrade bilaterally. Ordering Physician: Aicha Blackwood Referring Physician: Aicha Blackwood Performed By: Sarita Winter RVT 08/02/24 7119 Date Carlos Field MD CC: Dr. Aicha Blackwood DO Date Dictated: 08/02/24 1253 Date Transcribed: 08/02/242218 Manager Policy: Signed Normal [facility] Duplex ultrasound of carotid artery reportOrdered By: Carlos Filed on 08-02-2024 Study report [facility] Cardiovascular Services [address] [place] [address] Carotid Duplex Ultrasound 08/02/24 1253 MR#: [id number] Acct: [id number] Name: ANTONIO DECKER Rep #:[id number] : 1945 79 From: Carlos Field MD Attending Dr: Dr. Aicha Blackwood DO atus: REG CLI Ordering Dr: Aicha Blackwood DO Date: 07/06 11/29 Location: [facility] Sex: F C Admitted: Reason For Study Reason For Study: Dizziness and giddiness Rt. Velocities/BP Lt. Velocities/BP Prox CCA 65.5/12.6 cm/sec. Prox CCA 100.3/20.1 cm/sec. Mid CCA 66.4/16.3 cm/sec. Mid CCA 67.4/16.8 cm/sec. Dist CCA 59.8/15.4 cm/sec. Dist CCA 72.9/19 cm/sec. Prox ICA 50.9/13.5 cm/sec. Prox ICA 56.4/11.3 cm/sec. Mid ICA 66.3/20.1 cm/sec. Mid ICA 69.6/23.4 cm/sec. Dist ICA 69.8/17 cm/sec. Dist ICA 98.1/26.7 cm/sec. Rt. ICA/CCA = 1.05. Lt. ICA/CCA = 1.46. Prox ECA 93.8/11.3 cm/sec. Prox ECA 81.7/11.3 cm/sec. Rt. Vert. 35.2/9.9 cm/sec. Lt. Vert. 45.4/11.3 cm/sec. Right Extracranial There is homogeneous, smooth atherosclerotic plaque noted in the right common carotid artery. There is heterogeneous, irregular atherosclerotic plaque noted in the right internal carotid artery. There is intimal thickening but no significant atherosclerotic plaque noted in the right external carotid artery. Antegrade flow is noted in the right vertebral artery. Left Extracranial There is homogeneous, smooth atherosclerotic plaque noted in the left common carotid artery. There is heterogeneous, irregular atherosclerotic plaque noted in the left internal carotid artery. There is intimal thickening but no significant atherosclerotic plaque noted in the left external carotid artery. Antegrade flow is noted in the left vertebral artery. Procedure Carotid Duplex 07109. This is a Carotid Duplex examination using B-mode, color flow and specral Doppler. Exam performed in department. VL/Carotid Duplex Ultrasound Interpretation Summary Mild (<50%) stenosis right extracranial internal carotid. Mild (<50%) stenosis left extracranial internal carotid. Flow within the vertebral arteries is antegrade bilaterally. Ordering Physician: Aicha Blackwood Referring Physician: Aicha Blackwood Performed By: Sarita Winter RVT 08/02/242218 Date _ Carlos Field MD CC: Dr. Aicha Blackwood DO ~ Date Dictated: 08/02/24 1253 Date Transcribed: 08/02/242218 Manager Policy: Signed [facility] Other Chiropractic Reporton 2024 Chiropractic Report [facility] Chiropractic [address] [place] [address] OFFICE VISIT Date of Service: 07/31/24 MR#: [id number] Acct: [id number] Name: ANTONIO DECKER Rep #: [id number] : 1945 Provider: JOSIAS Rutherford Age/Sex: 79/F Location: [facility] Status: Signed Intake Vital Signs 06/06/24 15:18 Height 5 ft 5 in Intake Visit Reasons: Back pain Chief Complaint: neck and Back pain Is patient in pain?: Yes (Neck, LBP) Pain scale (1-10): 5 Allergies ciprofloxacin Allergy (Intermediate, Verified 07/31/24 11:38) Other amoxicillin (Amoxicillin) Allergy (Verified 07/31/24 11:38) Hives clarithromycin Allergy (Verified 07/31/24 11:38) Rash naproxen Allergy (Verified 07/31/24 11:38) Hives nizatidine (From Axid) Allergy (Verified 07/31/24 11:38) Hives Sulfa (Sulfonamide Antibiotics) Allergy (Verified 07/31/24 11:38) Rash latex Adverse Reaction (Verified 07/31/24 11:38) Rash levofloxacin (From Levaquin) Adverse Reaction (Verified 07/31/24 11:38) Other Medications ???Medication ???Instructions ???Recorded ???Confirmed ???Type diclofenac sodium 1 % topical gel 100 g TP PRN PRN Pain 07/11/18 History fluticasone propionate 50 2 spray NASAL DAILY 07/11/1807/31 History mcg/actuation nasal spray,suspension silva Ritchie B.an imalis 10 1 ea PO DAILY 12/05/19 07/31/24 H istory billion cell capsule ascorbic acid (vitamin C) 500 mg 500 mg PO BID 12/05/19 07/31/24 Hi story capsule biotin 5 mg tablet 5 mg PO DAILY 12/05/19 07/31/24 Hi story cetirizine 10 mg tablet (Zyrtec) 10 mg PO DAILY 11/20/21 07/31/24 H istory calcitriol 0.25 mcg capsule 0.25 mcg PO QDAY 03/15/24 07/31/24 History cod liver oil 1 cap PO .6xday 03/15/24 07/31/24 History cranberry 500 mg capsule 500 mg PO TID 03/15/24 07/31/24 Hi story estrogen ring vaginal 03/15/24 07/31/24 History magnesium 250 mg tablet 400 mg PO DAILY 03/15/24 07/31/24 History rosuvastatin 5 mg tablet 5 mg PO QDAY 03/15/24 07/31/24 His tory budesonide 3 mg 3 mg PO .COMPLEX #210 ea 05/08/24 07/31/24 Rx capsule,delayed,extended release ondansetron HCl 4 mg tablet 4 mg PO .COMPLEX #5 tabs 05/08/24 07/31/24 Rx [id number] 140 gram-sod sulfate 9 See Rx Instructions PO .COMPLEX #3 05/08/24 07/31/24 Rx gram-NaCl 5.2gram-KCl-C oral pwdr ea packs (Plenvu) Have you fallen in the past year?: No PFSH Medical History Osteoarthritis Osteopenia Hypoglycemia Coronary artery disease FH: cataracts Seasonal allergies Anxiety Diverticulosis of colon Diarrhea Osteoporosis GERD (gastroesophageal reflux disease) History of reactive hypoglycemia History of UTI Family History Other Arthritis Bowel disease Heart disease Hyperlipidemia Osteoporosis Respiratory disease Suicide attempt Thyroid disorder Social History Smoking Status: Former smoker alcohol intake: current alcohol intake frequency: a few times a week Alcohol type: wine substance use type: former substance user Date of last use: marijuana and amphetamines in her 20's what type of physical activity do you participate in: walking and weight training frequency: 5-6 times per week HPI Back pain Chief Complaint: low back and neck pain Visit Number: 4 Details: ANTONIO DECKER is a 79 year old female here to follow up for ongoing neck and back pain.She is experiencing a flare up of right sided low back pain that started yesterday after walking for a long period. The pain starts in her right low back an extends down the hip and into her leg. She cannot sit or lay down for long periods due to the pain. She was unable to sleep last night because she could not get comfortable due to the pain. She describes it as a constant deep ache. She complains of neck pain and stiffness that is worse on the right side. She has decreased ROM. She feels as though her hips are out of alignment. She rates her pain 5/10. She met with Carlos in PT who states the exercises she is already doing are all he would recommend. She rates her overall pain 2/10 today. Pt. denies new injury, numbness or tingling. She stays active, goes to the gym, does her PT exercises and stretches at home. She reports chiropractic adjustments are helpful in relieving some her pain and discomfort but it gradually returns. Location: low back/neck Duration: frequent Aggravating or associated factors: bending,standing,sleepin g,bike Relieving factors: chiro Pain Quality: aching and dull Exam Musc General: Yes normal gait, joint tenderness and decreased range of motion; No normal posture Cervical Spine: Yes loss of normal cervical lordosis, Yes cervi (more content not included)... Normal [facility] Chiropractic Reporton 2024 Chiropractic Report [facility] [place] Chiropractic [address] [place] [address] OFFICE VISIT Date of Service: 07/02/24 MR#: [id number] Acct: [id number] Name: ANTONIO DECKER Rep #: [id number] : 1945 Provider: JOSIAS Rutherford Age/Sex: 79/F Location: [facility] Status: Signed Intake Vital Signs 05/29/24 11:37 06/06/24 15:18 Height 5 ft 5 in 5 ft 5 in Intake Visit Reasons: Back pain Chief Complaint: neck and Back pain Is patient in pain?: Yes (neck, upper ,mid and low back) Pain scale (1-10): 2 Allergies ciprofloxacin Allergy (Intermediate, Verified 07/02/24 11:08) Other amoxicillin (Amoxicillin) Allergy (Verified 07/02/24 11:08) Hives clarithromycin Allergy (Verified 07/02/24 11:08) Rash naproxen Allergy (Verified 07/02/24 11:08) Hives nizatidine (From Axid) Allergy (Verified 07/02/24 11:08) Hives Sulfa (Sulfonamide Antibiotics) Allergy (Verified 07/02/24 11:08) Rash latex Adverse Reaction (Verified 07/02/24 11:08) Rash levofloxacin (From Levaquin) Adverse Reaction (Verified 07/02/24 11:08) Other Medications ???Medication ???Instructions ???Recorded ???Confirmed ???Type diclofenac sodium 1 % topical gel 100 g TP PRN PRN Pain 07/11/18 History fluticasone propionate 50 2 spray NASAL DAILY 07/11/1807/02 History mcg/actuation nasal spray,suspension silva Ritchie B.an imalis 10 1 ea PO DAILY 12/05/19 07/02/24 H istory billion cell capsule ascorbic acid (vitamin C) 500 mg 500 mg PO BID 12/05/19 07/02/24 Hi story capsule biotin 5 mg tablet 5 mg PO DAILY 12/05/19 07/02/24 Hi story cetirizine 10 mg tablet (Zyrtec) 10 mg PO DAILY 11/20/21 07/02/24 H istory calcitriol 0.25 mcg capsule 0.25 mcg PO QDAY 03/15/24 07/02/24 History cod liver oil 1 cap PO .6xday 03/15/24 07/02/24 History cranberry 500 mg capsule 500 mg PO TID 03/15/24 07/02/24 Hi story estrogen ring vaginal 03/15/24 07/02/24 History magnesium 250 mg tablet 400 mg PO DAILY 03/15/24 07/02/24 History rosuvastatin 5 mg tablet 5 mg PO QDAY 03/15/24 07/02/24 His tory budesonide 3 mg 3 mg PO .COMPLEX #210 ea 05/08/24 07/02/24 Rx capsule,delayed,extended release ondansetron HCl 4 mg tablet 4 mg PO .COMPLEX #5 tabs 05/08/24 07/02/24 Rx [id number] 140 gram-sod sulfate 9 See Rx Instructions PO .COMPLEX #3 05/08/24 07/02/24 Rx gram-NaCl 5.2gram-KCl-C oral pwdr ea packs (Plenvu) Have you fallen in the past year?: No PFSH Medical History Osteoarthritis Osteopenia Hypoglycemia Coronary artery disease FH: cataracts Seasonal allergies Anxiety Diverticulosis of colon Diarrhea Osteoporosis GERD (gastroesophageal reflux disease) History of reactive hypoglycemia History of UTI Family History Other Arthritis Bowel disease Heart disease Hyperlipidemia Osteoporosis Respiratory disease Suicide attempt Thyroid disorder Social History Smoking Status: Former smoker alcohol intake: current alcohol intake frequency: a few times a week Alcohol type: wine substance use type: former substance user Date of last use: marijuana and amphetamines in her 20's what type of physical activity do you participate in: walking and weight training frequency: 5-6 times per week HPI Back pain Chief Complaint: low back and neck pain Visit Number: 3 Details: ANTONIO DECKER is a 79 year old female here to follow up for ongoing neck and back pain. Pt. continues to complain of left side pain from her neck to her low back. She states her left side back pain was worse over the weekend rating 4/10 but has improved some. neck discomfort and stiffness that extends into her upper back and across her shoulders bilaterally. She has decreased ROM and is worse on the left side. She c/o bilateral hip pain and states she had Xrays done which revealed arthritis. She met with Carlos in PT who states the exercises she is already doing are all he would recommend. She rates her overall pain 2/10 today. Pt. denies new injury, numbness or tingling. She stays active, goes to the gym, does her PT exercises and stretches at home. She reports chiropractic adjustments are helpful in relieving some her pain and discomfort but it gradually returns. Location: low back/neck Duration: frequent Aggravating or associated factors: bending,standing,sleepin g,bike Relieving factors: chiro Pain Quality: aching and dull Exam Musc General: Yes normal gait, joint tenderness and decreased range of motion; No normal posture Cervical Spine: Yes loss of normal cervical lordosis, Yes cervical muscular tenderness bilateral lower , Yes cervical spasm right greater than left lower trapezius and parac (more content not included)... Normal [facility] Inital Evaluation (1) - PTon 06-26-2024 Inital Evaluation (1) - PT [facility] [place] [id number] [facility] [place] [address] / REHABILITATION SERVICES INITIAL EVALUATION MR#: [id number] Acct: [id number] Name: ANTONIO DECKER Rep #: [id number] : 1945 79 From: Carlos Luis PT, ATC Referring Dr.: Dr. Aicha Blackwood DO Status: REG R CR Insurance: MEDICARE PART A B [employer] Patient's Visit Information Visit Information Visit Information: ANTONIO DECKER is a 79 year old F referred to Physical Therapy by Dr. Aicha Blackwood DO with a diagnosis of LBP and R hip pain. Date of Evaluation: 06/26/24 Physical Therapist: Carlos Luis, PT, ATC Visit Plan Frequency: 1x/Week Duration: 1 Week Plan: Follow up or discharge in one month. Pt is I with all core strengthening and LE stretching activity. Subjective Subjective: Pt reports she has had chronic LBP for several years. Pt notes she has had xrays and an MRI which revealed significant arthritis. Pt reports she has had PT several times in the past which always helped. Pt notes she has pain in the back still today, which will on occasion radiate down to the knee region. Pt notes she was getting off an exercise bike a few months ago when she experienced severe pain in her R hip. Pt notes the pain mostly resolved with rest and ice, but pt still gets some pain in that region. Pt reports she gets more sciatica pain in her L hip and LE at this time. Pt reports she is able to perform most of her IADL's without limitation. 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 0/10 pain while sitting here in the clinic, 3/10 pain at worst. Pt reports prolonged standing increases her pain, while sitting helps to alleviate her pain. Pain LBP and R hip: Pain Intensity (Out of 10): 0 Pain Intensity Range: 3 Objective Objective: Neuro: B LE sensation is WNL to light touch. Palpation: No pain with palpation of the R hip region. No obvious deformity noted at this time. ROM: Pt is moderately limited with L/S extension at this time. All other ranges are WNL. B hips are equal when compared bilaterally. MMT: L hip flexion= 10, abd= 19, add= 30 #F; R hip flex= 9, abd= 24, add= 31 #F Special tests: No pos hip tests this date Goals Goal 1:: Pt will be I with HEP in one visit Goal Time Frame: 1 Week Rehabilitation Potential Physical Therapy Diagnosis: Pt has LBP and R LE radiculopathy secondary to degenerative changes in the L/S Rehabilitation Potential: Good Anticipated Interventions Patient/Client Instruction: Educate patient on: Condition and Plan of Care For the Purpose of:: To improve self management Therapeutic Exercise to Include: Strength training, Endurance training, Body mechanics, Postural training and Dynamic Lumbar Stabilization For the Purpose of:: To decrease pain and To improve muscle performance and motor function Text: Thank you for the opportunity to evaluate your patient. For Medicare and Medicare HMO plans, please review the plan of care and approve it. It will need to be FAXED BACK to us at [phone] for Medicare purposes. For Medicare only, by signing this I certify the plan of care. Please let me know if there are questions or concerns regarding this plan of care. Physician Signature: Date: ____ 06/26/24 1424 CC: Dr. Aicha Blackwood DO [facility] Signed Normal [facility] HIP, UNI W/ Pelvis 2-3 Views on 06-06-2024 HIP, UNI W/ Pelvis 2-3 Views [facility] Imaging Services [address], [place] [address] HIP, UNI W/ Pelvis 2-3 Views MR#: [id number] Acct: [id number] Name: ANTONIO DECKER Rep #: [id number] : 1945 F 79 From: Eric Mcneal DO PCP: Dr. Aicha Blackwood DO Status: DEP AMB Study: HIP, UNI W/ Pelvis 2-3 Views Date of Exam: 05/01 Exam# [id number] Ordering Dr: Aicha Blackwood DO PROCEDURE: HIP, UNI W/ PELVIS 2-3 VIEWS 06/06/2024 REASON FOR EXAM: CHRONIC HIP PAIN, NKI TECHNIQUE: 2 views of the right hip and pelvis COMPARISON: None FINDINGS: Bones: No acute fracture or dislocation. Joints: Severe narrowing of the bilateral hip joints. Soft tissues: Soft tissues are unremarkable. Other: RAD/HIP, UNI W/ Pelvis 2-3 Views IMPRESSION: Osteoarthritic changes of the bilateral hip joints. No acute fracture. Reading Location: [facility] CC: Dr. Aicha Blackwood DO Manager Policy: Signed Normal [facility] Chiropractic Reporton 2024 Chiropractic Report [facility] Chiropractic [facility] [place] [address] OFFICE VISIT Date of Service: 06/04/24 MR#: [id number] Acct: [id number] Name: ANTONIO DECKER Rep #: [id number] : 1945 Provider: JOSIAS Rutherford Age/Sex: 79/F Location: [facility] Status: Signed Intake Vital Signs 03/15/24 13:13 05/29/24 11:37 Height 5 ft 5 in 5 ft 5 in Intake Visit Reasons: Back pain Chief Complaint: neck and Back pain Is patient in pain?: Yes (right hip/low back) Pain scale (1-10): 2 Allergies ciprofloxacin Allergy (Intermediate, Verified 06/04/24 12:46) Other amoxicillin (Amoxicillin) Allergy (Verified 06/04/24 12:46) Hives clarithromycin Allergy (Verified 06/04/24 12:46) Rash naproxen Allergy (Verified 06/04/24 12:46) Hives nizatidine (From Axid) Allergy (Verified 06/04/24 12:46) Hives Sulfa (Sulfonamide Antibiotics) Allergy (Verified 06/04/24 12:46) Rash latex Adverse Reaction (Verified 06/04/24 12:46) Rash levofloxacin (From Levaquin) Adverse Reaction (Verified 06/04/24 12:46) Other Have you fallen in the past year?: No PFSH Medical History Osteoarthritis Osteopenia Hypoglycemia Coronary artery disease FH: cataracts Seasonal allergies Anxiety Diverticulosis of colon Diarrhea Osteoporosis GERD (gastroesophageal reflux disease) History of reactive hypoglycemia History of UTI Family History Other Arthritis Bowel disease Heart disease Hyperlipidemia Osteoporosis Respiratory disease Suicide attempt Thyroid disorder Social History Smoking Status: Former smoker alcohol intake: current alcohol intake frequency: a few times a week Alcohol type: wine substance use type: former substance user Date of last use: marijuana and amphetamines in her 20's what type of physical activity do you participate in: walking and weight training frequency: 5-6 times per week HPI Back pain Chief Complaint: low back and neck pain Visit Number: 2 Details: ANTONIO DECKER is a 79 year old female here to follow up for ongoing neck and back pain. Pt. complains of mild neck discomfort and stiffness that extends into her upper back and across her shoulders bilaterally. She has decreased ROM and is worse on the left side. She c/o bilateral hip pain with the right side being worse. She states her right hip was really painful on Tuesday after doing some elliptical work. She describes it as deep achy pain from her right glute into her right hip and right groin. She states the pain was shooting down into her right knee. She iced it all day and it has improved. She rates her right hip pain 2/10 today. Pt. denies new injury, numbness or tingling. She stays active, goes to the gym, does her PT exercises and stretches at home. She reports chiropractic adjustments are helpful in relieving some her pain and discomfort but it gradually returns. Location: low back/neck Duration: frequent Aggravating or associated factors: bending,standing,sleepin g,bike Relieving factors: chiro Pain Quality: aching and dull Exam Musc General: Yes normal gait, joint tenderness and decreased range of motion; No normal posture Cervical Spine: Yes loss of normal cervical lordosis, Yes cervical muscular tenderness right greater than left diffuse , Yes cervical spasm right greater than left lower trapezius and paracervical muscles and Yes misalignment misalignment: C5, C6 and C7 Thoracic/Lumber: No thoracic and lumbar spine normal to inspection (High Left Shoulder), Yes paraspinal tenderness on the right greater than left (upper thoracic) and on the left greater than right (Lumbopelvic), Yes thoraco-lumbar spasm on the right greater than left (trap, rhomboid) and on the left greater than right (paraspinal (L3-L5), glute, psoas) and Yes misalignment T3, T4, L3, L4, L5 and LIL Sacroiliac joints: on the left tender to palpation and other (edema present) Office Procedures Procedures - Chiropractic Procedures Manipulation: Cervical C6, Lumbar L4, Thoracic T3 and Pelvis LIL Manipulation: 3-4 regions Patient Response: positive Assessment and Plan Assessment and Plan (1) Segmental and somatic dysfunction of cervical region: Status: Acute (2) Segmental and somatic dysfunction of thoracic region: Status: Acute (3) Segmental and somatic dysfunction of lumbar region: Status: Acute (4) Segmental and somatic dysfunction of pelvic region: Status: Acute (5) 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 Normal [facility] ENTERIC PATHOGEN PANEL STOOL on 05-02-2024 EP PANEL Normal Reference Ran ge = Not Detected Nucleic acid amplification test method Not detected for Campylobacter group, Salmonella species, Shigella species, Vibrio Group, Yersinia enterocolitica, EHEC (Shiga Toxin 1, Shiga Toxin 2), Norovirus Gl/Gll, and Rotavirus A. Other common stool pathogens are not detected on this panel include: Aeromonas/Plesiomonas or parasites. Order testing for these organisms separately if suspected. This is an amplified DNA test which makes it both specific and sensitive. CAMPYLOBACTER Not Detected Norovirus Not Detected Rotavirus Not Detected Salmonella Not Detected Shiga Toxin Not Detected Shigella sp. Not Detected VIBRIO Not Detected Yersinia Not Detected Normal [facility] Comment on above: Performed By: #### M 100.637, M100.6796 ####[facility] [id number] [place], [address] C. difficile DNA XU+probe Q l (Unsp spec)Ordered By: Tiffanie Cano on 05-01-2024 Clostridioides difficile (PCR) [facility] CDIFF (PCR)on 05-01-2024 CDIFF A positive C. diffic ile molecular test does not differentiate between an active C. difficile infection and C. difficile colonization. Use clinical judgement and paired toxin/antigen testing to identify true infection and need for treatment. C diff DNA Spec Ql XU+probe Reference Range: Negative [employer] GeneXpert: polymerase chain reaction (PCR) 027 027 NAP1-B1 Presumptive Negative *for epidemiolologic???use C. Diff PCR Negative- No toxigenic C. Diff Detected Normal [facility] Comment on above: Performed By: #### M 100.637, M100.6796 ####[facility] [id number] [place], [place], [id number] Clostridium difficile detect ion by polymerase chain reactionOrdered By: Tiffanie Cano on 05-01-2024 C. difficile DNA XU+probe Ql (Unsp spec) [facility] Stool enteric pathogen panel by probe and target amplification methodOrdered By: Tiffanie Cano on 05-01-2024 Enteric Bacteriology [facility] Chiropractic Reporton 2024 Chiropractic Report [facility] [address] [place] [address] OFFICE VISIT Date of Service: 04/30/24 MR#: [id number] Acct: [id number] Name: ANTONIO DECKER Rep #: [id number] : 1945 Provider: JOSIAS Rutherford Age/Sex: 79/F Location: [facility] Status: Signed Intake Vital Signs 03/15/24 13:13 Height 5 ft 5 in Weight: 144 lb 6 oz BMI 24.0 BP 120/78 Respiration 18 Pulse 74 Pulse Oximetry (%) 97 Oxygen Delivery Method room air Intake Visit Reasons: Back pain Chief Complaint: neck and Back pain Is patient in pain?: Yes (neck) Pain scale (1-10): 2 Allergies ciprofloxacin Allergy (Intermediate, Verified 04/30/24 13:44) Other amoxicillin (Amoxicillin) Allergy (Verified 04/30/24 13:44) Hives clarithromycin Allergy (Verified 04/30/24 13:44) Rash naproxen Allergy (Verified 04/30/24 13:44) Hives nizatidine (From Axid) Allergy (Verified 04/30/24 13:44) Hives Sulfa (Sulfonamide Antibiotics) Allergy (Verified 04/30/24 13:44) Rash latex Adverse Reaction (Verified 04/30/24 13:44) Rash levofloxacin (From Levaquin) Adverse Reaction (Verified 04/30/24 13:44) Other Medications ???Medication ???Instructions ???Recorded ???Confirmed ???Type diclofenac sodium 1 % topical gel 100 g TP PRN PRN Pain 07/11/18 History fluticasone propionate 50 2 spray NASAL DAILY 07/11/1804/30 History mcg/actuation nasal spray,suspension silva Ritchie B.an imalis 10 1 ea PO DAILY 12/05/19 04/30/24 H istory billion cell capsule ascorbic acid (vitamin C) 500 mg 500 mg PO BID 12/05/19 04/30/24 Hi story capsule biotin 5 mg tablet 5 mg PO DAILY 12/05/19 04/30/24 Hi story cetirizine 10 mg tablet (Zyrtec) 10 mg PO DAILY 11/20/21 04/30/24 H istory budesonide 9 mg tablet,delayed and 9 mg PO QDAY 03/15/24 04/30/24 H istory extended release calcitriol 0.25 mcg capsule 0.25 mcg PO QDAY 03/15/24 04/30/24 History cod liver oil 1 cap PO .6xday 03/15/24 04/30/24 History cranberry 500 mg capsule 500 mg PO TID 03/15/24 04/30/24 Hi story estrogen ring vaginal 03/15/24 04/30/24 History magnesium 250 mg tablet 400 mg PO DAILY 03/15/24 04/30/24 History rosuvastatin 5 mg tablet 5 mg PO QDAY 03/15/24 04/30/24 His tory Have you fallen in the past year?: No PFSH Medical History Osteoarthritis Osteopenia Hypoglycemia Coronary artery disease FH: cataracts Seasonal allergies Anxiety Diverticulosis of colon Diarrhea Osteoporosis GERD (gastroesophageal reflux disease) History of reactive hypoglycemia History of UTI Family History Other Arthritis Bowel disease Heart disease Hyperlipidemia Osteoporosis Respiratory disease Suicide attempt Thyroid disorder Social History Smoking Status: Former smoker alcohol intake: current alcohol intake frequency: a few times a week Alcohol type: wine substance use type: former substance user Date of last use: marijuana and amphetamines in her 20's what type of physical activity do you participate in: walking and weight training frequency: 5-6 times per week HPI Back pain Chief Complaint: low back and neck pain Visit Number: 1 Details: ANTONIO DECKER is a 79 year old female here to follow up for ongoing neck and back pain. Pt. complains of mild neck pain and stiffness that extends into her upper back. She rates her pain 2/10 and is worse on the left side. She also reports limited ROM. She states her hips and pelvis seem to be out of alignment and feels crooked. She is active, does her PT exercises and stretches at home. Pt. denies new injury, numbness or tingling. She reports chiropractic adjustments are helpful in relieving some her pain and discomfort but it gradually returns. Location: low back/neck Duration: intermittent Aggravating or associated factors: bending,standing,sleepin g,ROM Relieving factors: chiro Pain Quality: aching and dull Exam Musc General: Yes normal gait, joint tenderness and decreased range of motion; No normal posture Cervical Spine: Yes loss of normal cervical lordosis, Yes cervical muscular tenderness right greater than left diffuse , Yes cervical spasm right greater than left lower trapezius and paracervical muscles and Yes misalignment misalignment: C5, C6 and C7 Thoracic/Lumber: No thoracic and lumbar spine normal to inspection (High Left Shoulder), Yes paraspinal tenderness on the right greater than left (upper thoracic) and on the left greater than right (Lumbopelvic), Yes thoraco-lumbar spasm on the right greater than left (trap, rhomboid) and on the left greater than right (paraspinal (L3-L5), glute, Piriformis) and Yes misalignm (more content not included)... Normal [facility] Chiropractic Reporton 2024 Chiropractic Report [facility] [address] [place] [id number] OFFICE VISIT Date of Service: 03/19/24 MR#: [id number] Acct: [id number] Name: ANTONIO DECKER Rep #: [id number] : 1945 Provider: JOSIAS Rutherford Age/Sex: 79/F Location: [facility] Status: Signed Intake Vital Signs 02/26/23 19:58 03/15/24 13:13 Height 5 ft 5 in 5 ft 5 in Weight: 144 lb 6 oz BMI 24.0 BP 120/78 Respiration 18 Pulse 74 Pulse Oximetry (%) 97 Oxygen Delivery Method room air Intake Visit Reasons: Back pain Chief Complaint: Back pain Is patient in pain?: Yes (Neck, LBP) Pain scale (1-10): 5 Allergies ciprofloxacin Allergy (Intermediate, Verified 03/19/24 11:46) Other amoxicillin (Amoxicillin) Allergy (Verified 03/19/24 11:46) Hives clarithromycin Allergy (Verified 03/19/24 11:46) Rash naproxen Allergy (Verified 03/19/24 11:46) Hives nizatidine (From Axid) Allergy (Verified 03/19/24 11:46) Hives Sulfa (Sulfonamide Antibiotics) Allergy (Verified 03/19/24 11:46) Rash latex Adverse Reaction (Verified 03/19/24 11:46) Rash levofloxacin (From Levaquin) Adverse Reaction (Verified 03/19/24 11:46) Other Medications ???Medication ???Instructions ???Recorded ???Confirmed ???Type diclofenac sodium 1 % topical gel 100 g TP PRN PRN Pain 07/11/18 03/19/24 History fluticasone propionate 50 2 spray NASAL DAILY 07/11/18 03/19/24 History mcg/actuation nasal spray,suspension silva Ritchie B.an imalis 10 1 ea PO DAILY 12/05/19 03/19/24 History billion cell capsule ascorbic acid (vitamin C) 500 mg 500 mg PO BID 12/05/19 03/19/24 History capsule biotin 5 mg tablet 5 mg PO DAILY 12/05/19 03/19/24 History cetirizine 10 mg tablet (Zyrtec) 10 mg PO DAILY 11/20/21 03/19/24 History budesonide 9 mg tablet,delayed and 9 mg PO QDAY 03/15/24 03/19/24 History extended release calcitriol 0.25 mcg capsule 0.25 mcg PO QDAY 03/15/24 03/19/24 History cod liver oil 1 cap PO .6xday 03/15/24 03/19/24 History cranberry 500 mg capsule 500 mg PO TID 03/15/24 03/19/24 History estrogen ring vaginal 03/15/24 03/19/24 History magnesium 250 mg tablet 400 mg PO DAILY 03/15/24 03/19/24 History rosuvastatin 5 mg tablet 5 mg PO QDAY 03/15/24 03/19/24 History Have you fallen in the past year?: No PFSH Medical History Osteoarthritis Osteopenia Hypoglycemia Coronary artery disease FH: cataracts Seasonal allergies Anxiety Diverticulosis of colon Diarrhea Osteoporosis GERD (gastroesophageal reflux disease) History of reactive hypoglycemia History of UTI Family History Other Arthritis Bowel disease Heart disease Hyperlipidemia Osteoporosis Respiratory disease Suicide attempt Thyroid disorder Social History Smoking Status: Former smoker alcohol intake: current alcohol intake frequency: a few times a week Alcohol type: wine substance use type: former substance user Date of last use: marijuana and amphetamines in her 20's what type of physical activity do you participate in: walking and weight training frequency: 5-6 times per week HPI Back pain Chief Complaint: low back and neck pain Visit Number: 1 Details: ANTONIO DECKER is a 79 year old female here to follow up for ongoing neck and back pain. She complains of neck pain and stiffness that is worse on the left side. She reports limited ROM in her neck. The pain extends into her upper back. She rates her neck pain 5/10. She has been doing the PT exercises and stretches at home. She also complains of low back pain and stiffness that is worse on the left side and extends into her hip. She rates her low back pain 3/10. She is active, stretches and does her PT exercises at home. Pt. denies new injury, numbness or tingling. She reports chiropractic adjustments are helpful in relieving some her pain and discomfort but it gradually returns Location: low back/neck Duration: intermittent Aggravating or associated factors: bending,standing,sleepin g,ROM Relieving factors: chiro Pain Quality: aching and dull Exam Musc General: Yes normal gait, joint tenderness and decreased range of motion; No normal posture Cervical Spine: Yes loss of normal cervical lordosis, Yes cervical muscular tenderness left greater than right lower , Yes cervical spasm right greater than left lower trapezius and paracervical muscles and Yes misalignment misalignment: C5, C6 and C7 Thoracic/Lumber: No thoracic and lumbar spine normal to inspection (High Left Shoulder), Yes paraspinal tenderness on the right greater than left (upper thoracic) and on the left greater than right (Lumbopelvic), Yes thoraco-lumbar spasm on the right (more content not included)... Normal [facility] Gastroenterology Visit Repor ton 03-15-2024 Gastroenterology Visit Report [facility]enterology [address] [place] [address] OFFICE VISIT Date of Service: 03/15/24 MR#: [id number] Acct: [id number] Name: ANTONIO DECKER Rep #: [id number] : 1945 Provider: JAMAL morgan Age/Sex: 79/F Location: [facility] Status: Signed Intake Vital Signs 02/26/23 19:58 03/15/24 13:13 Height 5 ft 5 in 5 ft 5 in Weight: 144 lb 6 oz BMI 24.0 BP 120/78 Respiration 18 Pulse 74 Pulse Oximetry (%) 97 Oxygen Delivery Method room air Intake Visit Reasons: EST CARE Chief Complaint: establish GI care [employer] Required: No Is patient in pain?: No Allergies ciprofloxacin Allergy (Intermediate, Verified 03/15/24 13:13) Other amoxicillin (Amoxicillin) Allergy (Verified 03/15/24 13:13) Hives clarithromycin Allergy (Verified 03/15/24 13:13) Rash naproxen Allergy (Verified 03/15/24 13:13) Hives nizatidine (From Axid) Allergy (Verified 03/15/24 13:13) Hives Sulfa (Sulfonamide Antibiotics) Allergy (Verified 03/15/24 13:13) Rash latex Adverse Reaction (Verified 03/15/24 13:13) Rash levofloxacin (From Levaquin) Adverse Reaction (Verified 03/15/24 13:13) Other Medications ???Medication ???Instructions ???Recorded ???Confirmed ???Type diclofenac sodium 1 % topical gel 100 g TP PRN PRN Pain 07/11/18 03/15/24 History fluticasone propionate 50 2 spray NASAL DAILY 07/11/18 03/15/24 History mcg/actuation nasal spray,suspension silva Ritchie B.an imalis 10 1 ea PO DAILY 12/05/19 03/15/24 History billion cell capsule ascorbic acid (vitamin C) 500 mg 500 mg PO BID 12/05/19 03/15/24 History capsule biotin 5 mg tablet 5 mg PO DAILY 12/05/19 03/15/24 History cetirizine 10 mg tablet (Zyrtec) 10 mg PO DAILY 11/20/21 03/15/24 History budesonide 9 mg tablet,delayed and 9 mg PO QDAY 03/15/24 03/15/24 History extended release calcitriol 0.25 mcg capsule 0.25 mcg PO QDAY 03/15/24 03/15/24 History cod liver oil 1 cap PO .6xday 03/15/24 03/15/24 History cranberry 500 mg capsule 500 mg PO TID 03/15/24 03/15/24 History estrogen ring vaginal 03/15/24 History magnesium 250 mg tablet 400 mg PO DAILY 03/15/24 03/15/24 History rosuvastatin 5 mg tablet 5 mg PO QDAY 03/15/24 03/15/24 History Have you fallen in the past year?: No Nurse's Note: This has been going on for some time now. in Nov of last year so the year has been stressful. No symptoms right now because Marquita put her on budesonide. No pain but a little reflux and bloating occasionally. [facility] Medical History Osteoarthritis Osteopenia Hypoglycemia Coronary artery disease FH: cataracts Seasonal allergies Anxiety Diverticulosis of colon Diarrhea Osteoporosis GERD (gastroesophageal reflux disease) History of reactive hypoglycemia History of UTI Family History Other Arthritis Bowel disease Heart disease Hyperlipidemia Osteoporosis Respiratory disease Suicide attempt Thyroid disorder Social History Smoking Status: Former smoker alcohol intake: current alcohol intake frequency: a few times a week Alcohol type: wine substance use type: former substance user Date of last use: marijuana and amphetamines in her 20's what type of physical activity do you participate in: walking and weight training frequency: 5-6 times per week HPI HPI Chief Complaint: establish GI care Details: ANTONIO DECKER, is a 79 F who presents to the office today for 79y/o female presents for consultation to establish care. PMH is significant for GERD, microscopic colitis, diverticulosis and was previously seeing Dr. Juárez. - November 2021 Nabumetone, then Covid and on Paxlovid it was after this she developed frequent diarrhea - states stool studies were negative in 2021 - May 2022 colonoscopy and diagnosed with microscopic colitis and symptoms resolved with Budesonide 8 weeks - October 2023 symptoms began again 6 weeks of Budesonide, did well for about a month and then symptoms resumed - February [address] Juárez and he retreated her with 9mg x6 weeks, 6mg x2 weeks - low fiber - reports she then developed some constipation and increeased fiber back in diet and is now doing well - states Dr. Juárez told her if she reflares after this course of Budesonide she will need a colonosocpy to r/o other causes of recurrent diarrhea - denies any recent stool testing - reports previous celiac labs were negative - stools are now formed, 1x a day - with flare - watery diarrhea 2-4x a day - denies any bleeding - denies any cramping/pain - denies any bleeding - denies any ATB in the past 6 months - reports h (more content not included)... Normal [facility] Chiropractic Reporton 2023 Chiropractic Report [facility] [place] [address] OFFICE VISIT Date of Service: 02/16/24 MR#: [id number] Acct: [id number] Name: ANTONIO DECKER Rep #: [id number] : 1945 Provider: JOSIAS Rutherford Age/Sex: 79/F Location: [facility] Status: Signed Intake Vital Signs 02/26/23 19:58 Height 5 ft 5 in Intake Visit Reasons: Back pain Chief Complaint: left low back and neck pain Is patient in pain?: Yes (Neck, LBP) Pain scale (1-10): 2 Allergies ciprofloxacin Allergy (Intermediate, Verified 02/16/24 11:40) Other amoxicillin (Amoxicillin) Allergy (Verified 02/16/24 11:40) Hives clarithromycin Allergy (Verified 02/16/24 11:40) Rash naproxen Allergy (Verified 02/16/24 11:40) Hives nizatidine (From Axid) Allergy (Verified 02/16/24 11:40) Hives Sulfa (Sulfonamide Antibiotics) Allergy (Verified 02/16/24 11:40) Rash latex Adverse Reaction (Verified 02/16/24 11:40) Rash levofloxacin (From Levaquin) Adverse Reaction (Verified 02/16/24 11:40) Other Medications ???Medication ???Instructions ???Recorded ???Confirmed ???Type diclofenac sodium 1 % topical gel 100 g TP PRN PRN Pain 07/11/18 02/16/24 History fluticasone propionate 50 2 spray NASAL DAILY 07/11/18 02/16/24 History mcg/actuation nasal spray,suspension silva Ritchie B.an imalis 10 1 ea PO DAILY 12/05/19 02/16/24 History billion cell capsule acetylcysteine 600 mg capsule 600 mg PO BID 12/05/19 02/16/24 History ascorbic acid (vitamin C) 500 mg 500 mg PO BID 12/05/19 02/16/24 History capsule biotin 5 mg tablet 5 mg PO DAILY 12/05/19 02/16/24 History cholecalciferol (vitamin D3) 25 1,000 unit PO DAILY 12/05/19 02/16/24 History mcg (1,000 unit) tablet cod liver oil 1 ea PO TID 12/05/19 02/16/24 History cranberry 500 mg capsule 500 mg PO BID 12/05/19 02/16/24 History magnesium 250 mg tablet 250 mg PO DAILY 12/05/19 02/16/24 History flunisolide 25 mcg (0.025 %) nasal 1 spray intranasal DAILY 04/17/20 02/16/24 History spray cetirizine 10 mg tablet (Zyrtec) 10 mg PO DAILY 11/20/21 02/16/24 History Have you fallen in the past year?: No PFSH Medical History Anxiety Diverticulosis of colon Diarrhea Osteoporosis GERD (gastroesophageal reflux disease) History of reactive hypoglycemia History of UTI Family History Other Arthritis Heart disease Hyperlipidemia Social History Smoking Status: Former smoker alcohol intake: current alcohol intake frequency: a few times a week Alcohol type: wine what type of physical activity do you participate in: walking and weight training frequency: 5-6 times per week HPI Back pain Chief Complaint: low back and neck pain Visit Number: 14 Details: ANTONIO DECKER is a 79 year old female here to follow up for ongoing neck and back pain. She finished PT this week for her cervical spine. She reports PT was very helpful and she denies any neck pain today. She has been doing the PT exercises and stretches at home. She also complains of low back pain and stiffness that is worse on the left side and extends into her hip. She rates her pain 2/10. She is active, stretches and does her PT exercises at home. Pt. denies new injury, numbness or tingling. She reports chiropractic adjustments are helpful in relieving some her pain and discomfort but it gradually returns Location: low back/neck Duration: intermittent Aggravating or associated factors: bending,standing,sleepin g,ROM Relieving factors: chiro Pain Quality: aching and dull Exam Musc General: Yes normal gait, joint tenderness and decreased range of motion; No normal posture Cervical Spine: Yes loss of normal cervical lordosis, Yes cervical muscular tenderness left greater than right lower , Yes cervical spasm right greater than left lower trapezius and paracervical muscles and Yes misalignment misalignment: C5, C6 and C7 Thoracic/Lumber: No thoracic and lumbar spine normal to inspection (High Left Shoulder), Yes paraspinal tenderness on the right greater than left (upper thoracic) and on the left greater than right (Lumbopelvic), Yes thoraco-lumbar spasm on the right greater than left (trap, rhomboid) and on the left greater than right (paraspinal (L3-L5), glute, Piriformis) and Yes misalignment T3, T4, L3, L4, L5 and LIL Sacroiliac joints: on the left tender to palpation and other (edema present) Office Procedures Procedures - Chiropractic Procedures Manipulation: Cervical C6, Lumbar L4, Thoracic T3 and Pelvis LIL Manipulation: 3-4 regions Patient Response: positive Assessment and Plan Assessment and Plan (1) Segmental and somatic dysfunction of cervical region: (more content not included)... Normal [facility] PT D/C Summary (1)on 024 PT D/C Summary (1) [facility] Physical Therapy [facility] [address] [place] [address] / REHABILITATION SERVICES DISCHARGE SUMMARY MR#: [id number] Acct: [id number] Name: ANTONIO DECKER Rep #: [id number] : 1945 79 From: Mena Vergara PT, Cert. MDT Referring Dr.: Dr. Aicha Blackwood DO Status: REG R CR Insurance: MEDICARE PART A B [facility] Discharge Summary D/C summary: It has been my pleasure to treat ANTONIO DECKER referred by Dr. Aicha Blackwood DO, with the diagnosis of NECK PAIN for a total of 8 visit(s). Discharge Date: 02/09/24 Please see the following information for a summary of their discharge status. Subjective Subjective: PATIENT REPORTS HER NECK PAIN IS GONE. STATES SHE STILL HAS INTERMITTENT STIFFNESS BUT MORE ROM THAN SHE HAS HAD IN A LONG TIME AND FEELS IT IS STILL IMPROVING. STATES SHE CAN TURN HER HEAD WHEN DRIVING WITHOUT TURNING HER WHOLE BODY NOW. STATES THE US HELPS ALOT AND SHE PLANS TO KEEP WORKING ON HER HOME EX'S. Overall Improvement % Improvement: 100 Objective Objective/Function: ALL GOALS MET. PATIENT IS INDEP WITH HEP AND APPROPRIATE FOR AND AGREEABLE TO DISCHARGE. Goals Goal 1:: DECREASE C/O NECK PAIN BY AT LEAST 50% TO EASE ADL'S Goal Progress: Goal Met Goal 2:: IMPROVE PERSONAL CARE, READING, DRIVING AND RECREATIONAL FUNCTION Goal Progress: Goal Met Goal 3:: INSTRUCT IN PROPHYLAXIS Goal Progress: Goal Met Plan Plan: D/C D/C Information d/c sentence: If there are questions or concerns regarding this patient's physical therapy, please feel free to call me at [phone]. Thank you for the referral of this patient. Sincerely, Mena Vergara, PT, Cert MDT Balance/Gait/Functional tests Balance/Special Test Scores Oswestry Neck Score: 0 Improvement % Improvement: 100 02/09/24 1252 CC: Dr. Aicha Blackwood DO KAUSHAL Signed Normal [facility] Basophil percentageOrdered B y: Edwardo Petit on 11-22-2022 Bilirubin [Mass/Vol] 0.40 mg/dL 0.20-1.00 [facility] Comment on above: For patients on eltr ombopag therapy, use of Dimension [place] TBIL is not recommended. Chloride [Moles/Vol] 98 mmol/L 98-107 [facility] Glucose [Mass/Vol] 67 mg/dL 74-[address] [facility] Potassium [Moles/Vol] 3.7 mmol/L 3.5-5.1 [facility] Protein [Mass/Vol] 7.2 g/dL 6.4-8.[address] [facility] Sodium [Moles/Vol] 136 mmol/L 136-[address] [facility] Laboratory - Chemistry and C hemistry - challengeOrdered By: Edwardo Petit on 11-22-2022 ALP [Catalytic activity/Vol] 51 U/L 45-117 [facility] ALT [Catalytic activity/Vol] 16 U/L 13-56 [facility] CO2 [Moles/Vol] 33.0 mmol/L 21.0-32.0 [facility] Globulin (S) [Mass/Vol] 3.9 g/dL 2.2-4.2 [facility] Urea nitrogen/Creatinine [Mass ratio] 19.0 mg/mg 10-20 [facility] No Panel InformationOrdered By: Edwardo Petit on 11-22-2022 Estimated GFR (MDRD) Amer 107 mL/min >60 [facility] Comment on above: GFR Calc Estimated GFR (MDRD) Non-Af Amer 89 mL/min >60 [facility] Comment on above: Non- GFR Calc Vitamin D 25-Hydroxy 37.6 ng/mL [facility] Comment on above: Vitamin D 25(OH) Sta tus Range Deficiency <20 ng/mL (50nmol/L) Insufficiency 20 - 30 ng/mL (50 - 75 nmol/L) Sufficiency 30 - 100 ng/mL (75 - 250 nmol/L) Toxicity >100 ng/mL (>250 nmol/L) Serum or plasma albumin linh urement (mass/volume)Ordered By: Edwardo Petit on 11-22-2022 Albumin [Mass/Vol] 3.3 g/dL 3.2-5.[address] [facility] Serum or plasma albumin/glob ulin mass ratioOrdered By: Edwardo Petit on 11-22-2022 Albumin/Globulin [Mass ratio] 0.8 {ratio} 0.9-2.4 [facility] Serum or plasma calcium linh urement (mass/volume)Ordered By: Edwardo Petit on 11-22-2022 Calcium [Mass/Vol] 8.8 mg/dL 8.5-10.[address] [facility] Serum or plasma creatinine m easurement (mass/volume)Ordered By: Edwardo Petit on 11-22-2022 Creatinine [Mass/Vol] 0.68 mg/dL 0.55-1.02 [facility] Comment on above: The validity of the calculated GFR & GFRAA in patients over 70 years has not been determined. Clinical correlation is essential. Serum or plasma urea nitroge n measurement (mass/volume)Ordered By: Edwardo Petit on 11-22-2022 Urea nitrogen [Mass/Vol] 13 mg/dL 7-18 [facility] Thin prep Papanicolaou smear with manual screeningOrdered By: Edwardo Petit on 11-22-2022 Thin prep Papanicolaou smear with manual screening 11 U/L 15-37 [facility] Thin prep Papanicolaou smear with manual screening 5 5-15 [facility] Absolute lymphocyte countOrd ered By: Edwardo Petit on 10-21-2022 Lymphocytes Auto (Unsp spec) [#/Vol] 1.63 10*3/uL 0.83-4.51 [facility] Basophil percentageOrdered B y: Edwardo Petit on 10-21-2022 Basophils/100 WBC (Bld) 0.8 % 0-1 [facility] Bilirubin [Mass/Vol] 0.60 mg/dL 0.20-1.00 [facility] Comment on above: For patients on eltr ombopag therapy, use of Dimension [place] TBIL is not recommended. Chloride [Moles/Vol] 101 mmol/L 98-107 [facility] Cholesterol [Mass/Vol] 228 mg/dL <200 [facility] Comment on above: <200 mg/dL Desirable 200-240 mg/dL Borderline >240 mg/dL High Risk Eosinophils/100 WBC (Bld) 3.4 % 0-5 [facility] Glucose [Mass/Vol] 84 mg/dL 74-[address] [facility] Neutrophils (Bld) [#/Vol] 2.9 10*3/uL 2.0-7.7 [facility] Neutrophils/100 WBC (Bld) 55.3 % 47-70 [facility] Potassium [Moles/Vol] 3.5 mmol/L 3.5-5.1 [facility] Protein [Mass/Vol] 7.5 g/dL 6.4-8.[address] [facility] Sodium [Moles/Vol] 136 mmol/L 136-[address] [facility] Triglyceride [Mass/Vol] 53 mg/dL <199 [facility] Comment on above: The drugs N-Acetylcy steine and Metamizole may falsely depress this assay.Serum Triglycerides Reference Interval Normal <150 mg/dL Borderline high 150 - 199 mg/dL High 200 - 499 mg/dL Very High > or = 500 mg/dL WBC (Bld) [#/Vol] 5.2 10*3/uL 4.4-11.[address] [facility] Blood erythrocytes count (nu mber/volume)Ordered By: Edwardo Petit on 10-21-2022 RBC (Bld) [#/Vol] 4.82 10*6/uL 4.2-5.4 [facility] Blood hemoglobin measurement (mass/volume)Ordered By: Edwardo Petit on 10-21-2022 Hemoglobin (Bld) [Mass/Vol] 14.5 g/dL 12.0-15.0 [facility] Blood lymphocytes/100 leukoc ytesOrdered By: Edwardo Petit on 10-21-2022 Lymphocytes/100 WBC (Bld) 31.1 % 19-41 [facility] Blood monocytes/100 leukocyt esOrdered By: Edwardo Petit on 10-21-2022 Monocytes/100 WBC (Bld) 9.0 % 0-10 [facility] Blood platelet mean volumeOr dered By: Edwardo Petit on 10-21-2022 Platelet mean volume (Bld) [Entitic vol] 9.2 fL 6.2-12.0 [facility] Determination of erythrocyte mean corpuscular volume (MCV)Ordered By: Edwardo Petit on 10-21-2022 MCV (RBC) [Entitic vol] 91.9 fL 81-99 [facility] Hematocrit Auto (Bld) [Volum e fraction]Ordered By: Edwardo Petit on 10-21-2022 Hematocrit (Bld) [Volume fraction] 44.3 % 37-47 [facility] Laboratory - Chemistry and C hemistry - challengeOrdered By: Edwardo Petit on 10-21-2022 ALP [Catalytic activity/Vol] 52 U/L 45-117 [facility] ALT [Catalytic activity/Vol] 20 U/L 13-56 [facility] CO2 [Moles/Vol] 30.0 mmol/L 21.0-32.0 [facility] Globulin (S) [Mass/Vol] 3.9 g/dL 2.2-4.2 [facility] Magnesium [Mass/Vol] 2.1 mg/dL 1.6-2.6 [facility] Urea nitrogen/Creatinine [Mass ratio] 17.4 mg/mg 10-20 [facility] Laboratory - Hematology and Cell countsOrdered By: Edwardo Petit on 10-21-2022 Erythrocyte distribution width (RBC) [Entitic vol] 42.5 fL 35.1-43.9 [facility] Erythrocyte distribution width (RBC) [Ratio] 12.5 % 11.6-14.6 [facility] Immature granulocytes/100 WBC (Bld) 0.400 % 0.0-0.9 [facility] Comment on above: IG% - Immature Granu locytes (promyelocytes, myelocytes and metamyelocytes) > 1% indicates that a LEFT SHIFT is Present. MCH (RBC) [Entitic mass] 30.1 pg 27.0-32.0 [facility] Nucleated RBC/100 WBC (Bld) [Ratio] 0 % 0-5 [facility] MCHC Auto (RBC) [Mass/Vol]Or dered By: Edwardo Petit on 10-21-2022 MCHC (RBC) [Mass/Vol] 32.7 g/dL 32-36 [facility] No Panel InformationOrdered By: Edwardo Petit on 10-21-2022 Estimated GFR (MDRD) Amer 107 mL/min >60 [facility] Comment on above: GFR Calc Estimated GFR (MDRD) Non-Af Amer 88 mL/min >60 [facility] Comment on above: Non- GFR Calc Parathyroid Hormone (Intact) 40.1 pg/mL 18.4-80.1 [facility] Vitamin D 25-Hydroxy 25.9 ng/mL [facility] Comment on above: Vitamin D 25(OH) Sta tus Range Deficiency <20 ng/mL (50nmol/L) Insufficiency 20 - 30 ng/mL (50 - 75 nmol/L) Sufficiency 30 - 100 ng/mL (75 - 250 nmol/L) Toxicity >100 ng/mL (>250 nmol/L) Platelets bldOrdered By: Yue Petit on 10-21-2022 Platelets (Bld) [#/Vol] 352 10*3/uL 150-450 [facility] Serum or plasma C reactive p rotein measurement (mass/volume)Ordered By: Edwardo Petit on 10-21-2022 CRP [Mass/Vol] mg/L 0.0-3.0 [facility] Comment on above: C-Reactive Protein ( CRP) provides useful information for thediagnosis, therapy and monitoring of inflammatory processesand associated diseases. For the evaluation of Relative Riskfor Cardiovascular Disease, a High Sensitivity CRP (HSCRP)should be ordered. Serum or plasma albumin linh urement (mass/volume)Ordered By: Edwardo Petit on 10-21-2022 Albumin [Mass/Vol] 3.6 g/dL 3.2-5.[address] [facility] Serum or plasma albumin/glob ulin mass ratioOrdered By: Edwardo Petit on 10-21-2022 Albumin/Globulin [Mass ratio] 0.9 {ratio} 0.9-2.4 [facility] Serum or plasma calcium linh urement (mass/volume)Ordered By: Edwardo Petit on 10-21-2022 Calcium [Mass/Vol] 9.4 mg/dL 8.5-10.[address] [facility] Serum or plasma cholesterol in HDL measurement (mass/volume)Ordered By: Edwardo Petit on 10-21-2022 Cholesterol in HDL [Mass/Vol] 93 mg/dL >40 [facility] Comment on above: The drugs N-Acetylcy steine and Metamizole may falsely depress this assay. Reference Range HDL <40 mg/dL Low HDL Cholesterol HDL >or= 60 mg/dL High HDL Cholesterol Serum or plasma cholesterol in VLDL measurement (mass/volume)Ordered By: Edwardo Petit on 10-21-2022 Cholesterol in VLDL [Mass/Vol] 11 mg/dL 5-40 [facility] Serum or plasma creatinine m easurement (mass/volume)Ordered By: Edwardo Petit on 10-21-2022 Creatinine [Mass/Vol] 0.69 mg/dL 0.55-1.02 [facility] Comment on above: The validity of the calculated GFR & GFRAA in patients over 70 years has not been determined. Clinical correlation is essential. Serum or plasma low density lipoprotein (LDL) cholesterol measurement (mass/volume)Ordered By: Edwardo Petit on 10-21-2022 Cholesterol in LDL [Mass/Vol] 124 mg/dL 0-130 [facility] Serum or plasma urea nitroge n measurement (mass/volume)Ordered By: Edwardo Petit on 10-21-2022 Urea nitrogen [Mass/Vol] 12 mg/dL 7-18 [facility] Thin prep Papanicolaou smear with manual screeningOrdered By: Edwardo Petit on 10-21-2022 Thin prep Papanicolaou smear with manual screening 18 U/L 15-37 [facility] Thin prep Papanicolaou smear with manual screening 5 5-15 [facility] Culture, urineOrdered By: Jeff Petit on 08-04-2022 Bacteria identified Cx Nom (U) Streptococcus agalactiae (B) [facility] Culture, urineOrdered By: Dr Frankie Petit on 06-23-2022 Bacteria identified Cx Nom (U) Positive [facility] No Panel InformationOrdered By: Dr. Juárez on 06-23-2022 Endomysial IgA Antibody Negative Negative [facility] Serum IgA measurement (units /volume)Ordered By: Dr. Juárez on 06-23-2022 IgA Qn (S) 223 mg/dL 64-422 [facility] Comment on above: [facility] [place], [place] [id number] Director: Bryn Nieves PhD, Phone: [phone] Serum or plasma C reactive p rotein measurement (mass/volume)Ordered By: Dr. Juárez on 06-23-2022 CRP [Mass/Vol] mg/L 0.0-3.0 [facility] Comment on above: C-Reactive Protein ( CRP) provides useful information for thediagnosis, therapy and monitoring of inflammatory processesand associated diseases. For the evaluation of Relative Riskfor Cardiovascular Disease, a High Sensitivity CRP (HSCRP)should be ordered. Serum tissue transglutaminas e IgA antibody assay (units/volume)Ordered By: Dr. Juárez on 06-23-2022 tTG IgA Qn (S) <2 U/mL 0-3 [facility] Comment on above: Negative 0 - 3 Weak Positive 4 - 10 Positive >10 Tissue Transglutaminase (tTG) has been identified as the endomysial antigen. Studies have demonstr- ated that endomysial IgA antibodies have over 99% specificity for gluten sensitive enteropathy. Culture, urineOrdered By: Jeff Petit on 06-22-2022 Bacteria identified Cx Nom (U) Positive [facility] Absolute lymphocyte countOrd ered By: Dr. Petit on 04-20-2022 Lymphocytes Auto (Unsp spec) [#/Vol] 1.57 10*3/uL 0.83-4.51 [facility] Basophil percentageOrdered B y: Dr. Petit on 04-20-2022 Basophils/100 WBC (Bld) 0.6 % 0-1 [facility] Bilirubin [Mass/Vol] 0.60 mg/dL 0.20-1.00 [facility] Comment on above: For patients on eltr ombopag therapy, use of Dimension [place] TBIL is not recommended. Chloride [Moles/Vol] 96 mmol/L 98-107 [facility] Eosinophils/100 WBC (Bld) 4.5 % 0-5 [facility] Glucose [Mass/Vol] 112 mg/dL 74-[address] [facility] Comment on above: Fasting Glucose resu lt from 100 to 125 mg/dL suggests IMPAIRED HOMEOSTASIS per A.D.A. criteria. Neutrophils (Bld) [#/Vol] 4.6 10*3/uL 2.0-7.7 [facility] Neutrophils/100 WBC (Bld) 64.8 % 47-70 [facility] Potassium [Moles/Vol] 4.2 mmol/L 3.5-5.1 [facility] Protein [Mass/Vol] 7.1 g/dL 6.4-8.[address] [facility] Sodium [Moles/Vol] 135 mmol/L 136-[address] [facility] WBC (Bld) [#/Vol] 7.2 10*3/uL 4.4-11.[address] [facility] Blood erythrocytes count (nu mber/volume)Ordered By: Dr. Petit on 04-20-2022 RBC (Bld) [#/Vol] 4.48 10*6/uL 4.2-5.4 [facility] Blood hemoglobin measurement (mass/volume)Ordered By: Dr. Petit on 04-20-2022 Hemoglobin (Bld) [Mass/Vol] 13.4 g/dL 12.0-15.0 [facility] Blood lymphocytes/100 leukoc ytesOrdered By: Dr. Petit on 04-20-2022 Lymphocytes/100 WBC (Bld) 22.0 % 19-41 [facility] Blood monocytes/100 leukocyt esOrdered By: Dr. Petit on 04-20-2022 Monocytes/100 WBC (Bld) 7.8 % 0-10 [facility] Blood platelet mean volumeOr dered By: Dr. Petit on 04-20-2022 Platelet mean volume (Bld) [Entitic vol] 9.3 fL 6.2-12.0 [facility] Determination of erythrocyte mean corpuscular volume (MCV)Ordered By: Dr. Petit on 04-20-2022 MCV (RBC) [Entitic vol] 92.9 fL 81-99 [facility] Hematocrit Auto (Bld) [Volum e fraction]Ordered By: Dr. Petit on 04-20-2022 Hematocrit (Bld) [Volume fraction] 41.6 % 37-47 [facility] Laboratory - Chemistry and C hemistry - challengeOrdered By: Dr. Petit on 04-20-2022 ALP [Catalytic activity/Vol] 44 U/L 45-117 [facility] ALT [Catalytic activity/Vol] 18 U/L 13-56 [facility] CO2 [Moles/Vol] 31.0 mmol/L 21.0-32.0 [facility] Globulin (S) [Mass/Vol] 3.3 g/dL 2.2-4.2 [facility] Lipase [Catalytic activity/Vol] 122 U/L 73-393 [facility] Urea nitrogen/Creatinine [Mass ratio] 22.1 mg/mg 10-20 [facility] Laboratory - Hematology and Cell countsOrdered By: Dr. Petit on 04-20-2022 Erythrocyte distribution width (RBC) [Entitic vol] 43.4 fL 35.1-43.9 [facility] Erythrocyte distribution width (RBC) [Ratio] 12.8 % 11.6-14.6 [facility] Immature granulocytes/100 WBC (Bld) 0.300 % 0.0-0.9 [facility] Comment on above: IG% - Immature Granu locytes (promyelocytes, myelocytes and metamyelocytes) > 1% indicates that a LEFT SHIFT is Present. MCH (RBC) [Entitic mass] 29.9 pg 27.0-32.0 [facility] Nucleated RBC/100 WBC (Bld) [Ratio] 0 % 0-5 [facility] MCHC Auto (RBC) [Mass/Vol]Or dered By: Dr. Petit on 04-20-2022 MCHC (RBC) [Mass/Vol] 32.2 g/dL 32-36 [facility] No Panel InformationOrdered By: Dr. Petit on 04-20-2022 Estimated GFR (MDRD) Amer 108 mL/min >60 [facility] Comment on above: GFR Calc Estimated GFR (MDRD) Non-Af Amer 90 mL/min >60 [facility] Comment on above: Non- GFR Calc Platelets bldOrdered By: Dr. Petit on 04-20-2022 Platelets (Bld) [#/Vol] 369 10*3/uL 150-450 [facility] Serum or plasma albumin linh urement (mass/volume)Ordered By: Dr. Petit on 04-20-2022 Albumin [Mass/Vol] 3.8 g/dL 3.2-5.[address] [facility] Serum or plasma albumin/glob ulin mass ratioOrdered By: Dr. Petit on 04-20-2022 Albumin/Globulin [Mass ratio] 1.2 {ratio} 0.9-2.4 [facility] Serum or plasma calcium linh urement (mass/volume)Ordered By: Dr. Petit on 04-20-2022 Calcium [Mass/Vol] 9.7 mg/dL 8.5-10.[address] [facility] Serum or plasma creatinine m easurement (mass/volume)Ordered By: Dr. Petit on 04-20-2022 Creatinine [Mass/Vol] 0.68 mg/dL 0.55-1.02 [facility] Comment on above: The validity of the calculated GFR & GFRAA in patients over 70 years has not been determined. Clinical correlation is essential. Serum or plasma urea nitroge n measurement (mass/volume)Ordered By: Dr. Petit on 04-20-2022 Urea nitrogen [Mass/Vol] 15 mg/dL 7-18 [facility] Thin prep Papanicolaou smear with manual screeningOrdered By: Dr. Petit on 04-20-2022 Thin prep Papanicolaou smear with manual screening 17 U/L 15-37 [facility] Thin prep Papanicolaou smear with manual screening 8 5-15 [facility] Clostridium difficile detect ion by polymerase chain reactionOrdered By: Dr. Petit on 04-08-2022 C. difficile DNA XU+probe Ql (Unsp spec) [facility] No Panel InformationOrdered By: Dr. Petit on 04-08-2022 Miscellaneous Test See comment [facility] Comment on above: STOOL CULTURESALMONE LLA/SHIGELLA SCREEN FINAL REPORTRESULT 1 NO SALMONELLA OR SHIGELLLA RECOVEREDCAMPYLOBACTER CULTURE RESULT 1 NO CAMPYLOBACTER SPECIES ISOLATEDE COLI SHIGA TOXIN EIA NEGATIVE (REFERENCE INTERVAL= NEGATIVE) _ TESTING PERFORMED AT [facility]. ORIGINAL REPORT ON FILE IN LAB CONTAINS ADDITIONAL TEST SITE INFORMATION. ____ Culture, urineOrdered By: Dr Frankie Hodges on 03-04-2022 Bacteria identified Cx Nom (U) Enterococcus faecalis [facility] Absolute lymphocyte counton 10-15-2021 Lymphocytes Auto (Unsp spec) [#/Vol] 1.11 10*3/uL 0.83-4.51 [facility] Work Phone: Basophil percentageon 2021 Basophils/100 WBC (Bld) 0.5 % 0-1 [facility] Work Phone: Bilirubin [Mass/Vol] 0.50 mg/dL 0.20-1.00 [facility] Work Phone: Comment on above: For patients on eltr ombopag therapy, use of Dimension [place] TBIL is not recommended. Chloride [Moles/Vol] 101 mmol/L 98-107 [facility] Work Phone: Cholesterol [Mass/Vol] 199 mg/dL <200 [facility] Work Phone: Comment on above: <200 mg/dL Desirable 200-240 mg/dL Borderline >240 mg/dL High Risk Eosinophils/100 WBC (Bld) 5.0 % 0-5 [facility] Work Phone: Glucose [Mass/Vol] 92 mg/dL 74-[address] [facility] Work Phone: Neutrophils (Bld) [#/Vol] 3.8 10*3/uL 2.0-7.7 [facility] Work Phone: Neutrophils/100 WBC (Bld) 64.4 % 47-70 [facility] Work Phone: Potassium [Moles/Vol] 3.8 mmol/L 3.5-5.1 [facility] Work Phone: Protein [Mass/Vol] 7.8 g/dL 6.4-8.[address] [facility] Work Phone: Sodium [Moles/Vol] 135 mmol/L 136-[address] [facility] Work Phone: Triglyceride [Mass/Vol] 48 mg/dL <199 [facility] Work Phone: Comment on above: The drugs N-Acetylcy steine and Metamizole may falsely depress this assay.Serum Triglycerides Reference Interval Normal <150 mg/dL Borderline high 150 - 199 mg/dL High 200 - 499 mg/dL Very High > or = 500 mg/dL WBC (Bld) [#/Vol] 6.0 10*3/uL 4.4-11.[address] [facility] Work Phone: Blood erythrocytes count (nu mber/volume)on 10-15-2021 RBC (Bld) [#/Vol] 4.76 10*6/uL 4.2-5.4 [facility] Work Phone: Blood hemoglobin measurement (mass/volume)on 10-15-2021 Hemoglobin (Bld) [Mass/Vol] 14.2 g/dL 12.0-15.0 [facility] Work Phone: Blood lymphocytes/100 leukoc yteson 10-15-2021 Lymphocytes/100 WBC (Bld) 18.7 % 19-41 [facility] Work Phone: Blood monocytes/100 leukocyt eson 10-15-2021 Monocytes/100 WBC (Bld) 11.1 % 0-10 [facility] Work Phone: Blood platelet mean volumeon 10-15-2021 Platelet mean volume (Bld) [Entitic vol] 9.0 fL 6.2-12.0 [facility] Work Phone: Determination of erythrocyte mean corpuscular volume (MCV)on 10-15-2021 MCV (RBC) [Entitic vol] 91.6 fL 81-99 [facility] Work Phone: Hematocrit Auto (Bld) [Volum e fraction]on 10-15-2021 Hematocrit (Bld) [Volume fraction] 43.6 % 37-47 [facility] Work Phone: Laboratory - Chemistry and C hemistry - challengeon 10-15-2021 ALP [Catalytic activity/Vol] 60 U/L 45-117 [facility] Work Phone: ALT [Catalytic activity/Vol] 23 U/L 13-56 [facility] Work Phone: CO2 [Moles/Vol] 30.0 mmol/L 21.0-32.0 [facility] Work Phone: Globulin (S) [Mass/Vol] 4.3 g/dL 2.2-4.2 [facility] Work Phone: Magnesium [Mass/Vol] 2.3 mg/dL 1.6-2.6 [facility] Work Phone: Urea nitrogen/Creatinine [Mass ratio] 15.8 mg/mg 10-20 [facility] Work Phone: Laboratory - Hematology and Cell countson 10-15-2021 Erythrocyte distribution width (RBC) [Entitic vol] 42.3 fL 35.1-43.9 [facility] Work Phone: Erythrocyte distribution width (RBC) [Ratio] 12.6 % 11.6-14.6 [facility] Work Phone: Immature granulocytes/100 WBC (Bld) 0.300 % 0.0-0.9 [facility] Work Phone: Comment on above: IG% - Immature Granu locytes (promyelocytes, myelocytes and metamyelocytes) > 1% indicates that a LEFT SHIFT is Present. MCH (RBC) [Entitic mass] 29.8 pg 27.0-32.0 [facility] Work Phone: Nucleated RBC/100 WBC (Bld) [Ratio] 0 % 0-5 [facility] Work Phone: MCHC Auto (RBC) [Mass/Vol]on 10-15-2021 MCHC (RBC) [Mass/Vol] 32.6 g/dL 32-36 [facility] Work Phone: No Panel Informationon 10-15 Estimated GFR (MDRD) Amer 105 mL/min >60 [facility] Work Phone: Comment on above: GFR Calc Estimated GFR (MDRD) Non-Af Amer 87 mL/min >60 [facility] Work Phone: Comment on above: Non- GFR Calc Thyroid Stimulating Hormone (TSH) 1.39 uIU/mL 0.358-3.74 [facility] Work Phone: Vitamin D 25-Hydroxy 44.1 ng/mL [facility] Work Phone: Comment on above: Vitamin D 25(OH) Sta tus Range Deficiency <20 ng/mL (50nmol/L) Insufficiency 20 - 30 ng/mL (50 - 75 nmol/L) Sufficiency 30 - 100 ng/mL (75 - 250 nmol/L) Toxicity >100 ng/mL (>250 nmol/L) Platelets bldon 10-15-2021 Platelets (Bld) [#/Vol] 433 10*3/uL 150-450 [facility] Work Phone: Serum or plasma albumin linh urement (mass/volume)on 10-15-2021 Albumin [Mass/Vol] 3.5 g/dL 3.2-5.[address] [facility] Work Phone: Serum or plasma albumin/glob ulin mass ratioon 10-15-2021 Albumin/Globulin [Mass ratio] 0.8 {ratio} 0.9-2.4 [facility] Work Phone: Serum or plasma calcium linh urement (mass/volume)on 10-15-2021 Calcium [Mass/Vol] 9.0 mg/dL 8.5-10.[address] [facility] Work Phone: Serum or plasma cholesterol in HDL measurement (mass/volume)on 10-15-2021 Cholesterol in HDL [Mass/Vol] 99 mg/dL >40 [facility] Work Phone: Comment on above: The drugs N-Acetylcy steine and Metamizole may falsely depress this assay. Reference Range HDL <40 mg/dL Low HDL Cholesterol HDL >or= 60 mg/dL High HDL Cholesterol Serum or plasma cholesterol in VLDL measurement (mass/volume)on 10-15-2021 Cholesterol in VLDL [Mass/Vol] 10 mg/dL 5-40 [facility] Work Phone: Serum or plasma creatinine m easurement (mass/volume)on 10-15-2021 Creatinine [Mass/Vol] 0.70 mg/dL 0.55-1.02 [facility] Work Phone: Comment on above: The validity of the calculated GFR & GFRAA in patients over 70 years has not been determined. Clinical correlation is essential. Serum or plasma low density lipoprotein (LDL) cholesterol measurement (mass/volume)on 10-15-2021 Cholesterol in LDL [Mass/Vol] 90 mg/dL 0-130 [facility] Work Phone: Serum or plasma urea nitroge n measurement (mass/volume)on 10-15-2021 Urea nitrogen [Mass/Vol] 11 mg/dL 7-18 [facility] Work Phone: Thin prep Papanicolaou smear with manual screeningon 10-15-2021 Thin prep Papanicolaou smear with manual screening 23 U/L 15-37 [facility] Work Phone: Thin prep Papanicolaou smear with manual screening 4 5-15 [facility] Work Phone: Gram stain for investigation of transfusion reactionon 07-09-2021 Microscopic observation Gram stain Nom (Unsp spec) [facility] Work Phone: No Panel Informationon 07-09 Nasopharyngeal Culture [facility] Work Phone: Absolute lymphocyte counton 04-03-2021 Lymphocytes Auto (Unsp spec) [#/Vol] 1.38 10*3/uL 0.83-4.51 [facility] Work Phone: Basophil percentageon 2021 Basophils/100 WBC (Bld) 0.4 % 0-1 [facility] Work Phone: Bilirubin [Mass/Vol] 0.40 mg/dL 0.20-1.00 [facility] Work Phone: Comment on above: For patients on eltr ombopag therapy, use of Dimension [place] TBIL is not recommended. Chloride [Moles/Vol] 97 mmol/L 98-107 [facility] Work Phone: Eosinophils/100 WBC (Bld) 1.0 % 0-5 [facility] Work Phone: Glucose [Mass/Vol] 100 mg/dL 74-[address] [facility] Work Phone: Comment on above: Fasting Glucose resu lt from 100 to 125 mg/dL suggests IMPAIRED HOMEOSTASIS per A.D.A. criteria. Neutrophils (Bld) [#/Vol] 8.8 10*3/uL 2.0-7.7 [facility] Work Phone: Neutrophils/100 WBC (Bld) 78.6 % 47-70 [facility] Work Phone: Potassium [Moles/Vol] 4.2 mmol/L 3.5-5.1 [facility] Work Phone: Protein [Mass/Vol] 7.6 g/dL 6.4-8.[address] [facility] Work Phone: Sodium [Moles/Vol] 132 mmol/L 136-[address] [facility] Work Phone: WBC (Bld) [#/Vol] 11.1 10*3/uL 4.4-11.0 [facility] Work Phone: Blood erythrocytes count (nu mber/volume)on 04-03-2021 RBC (Bld) [#/Vol] 4.53 10*6/uL 4.2-5.4 [facility] Work Phone: Blood hemoglobin measurement (mass/volume)on 04-03-2021 Hemoglobin (Bld) [Mass/Vol] 13.8 g/dL 12.0-15.0 [facility] Work Phone: Blood lymphocytes/100 leukoc yteson 04-03-2021 Lymphocytes/100 WBC (Bld) 12.4 % 19-41 [facility] Work Phone: Blood monocytes/100 leukocyt eson 04-03-2021 Monocytes/100 WBC (Bld) 7.3 % 0-10 [facility] Work Phone: Blood platelet mean volumeon 04-03-2021 Platelet mean volume (Bld) [Entitic vol] 9.5 fL 6.2-12.0 [facility] Work Phone: Culture, urineon 04-03-2021 Bacteria identified Cx Nom (U) Streptococcus agalactiae (B) [facility] Work Phone: Determination of erythrocyte mean corpuscular volume (MCV)on 04-03-2021 MCV (RBC) [Entitic vol] 90.9 fL 81-99 [facility] Work Phone: Hematocrit Auto (Bld) [Volum e fraction]on 04-03-2021 Hematocrit (Bld) [Volume fraction] 41.2 % 37-47 [facility] Work Phone: Laboratory - Chemistry and C hemistry - challengeon 04-03-2021 ALP [Catalytic activity/Vol] 47 U/L 45-117 [facility] Work Phone: ALT [Catalytic activity/Vol] 18 U/L 13-56 [facility] Work Phone: CO2 [Moles/Vol] 30.0 mmol/L 21.0-32.0 [facility] Work Phone: Globulin (S) [Mass/Vol] 4.0 g/dL 2.2-4.2 [facility] Work Phone: Urea nitrogen/Creatinine [Mass ratio] 22.2 mg/mg 10-20 [facility] Work Phone: Laboratory - Hematology and Cell countson 04-03-2021 Erythrocyte distribution width (RBC) [Entitic vol] 42.5 fL 35.1-43.9 [facility] Work Phone: Erythrocyte distribution width (RBC) [Ratio] 12.7 % 11.6-14.6 [facility] Work Phone: Immature granulocytes/100 WBC (Bld) 0.300 % 0.0-0.9 [facility] Work Phone: Comment on above: IG% - Immature Granu locytes (promyelocytes, myelocytes and metamyelocytes) > 1% indicates that a LEFT SHIFT is Present. MCH (RBC) [Entitic mass] 30.5 pg 27.0-32.0 [facility] Work Phone: Nucleated RBC/100 WBC (Bld) [Ratio] 0 % 0-5 [facility] Work Phone: MCHC Auto (RBC) [Mass/Vol]on 04-03-2021 MCHC (RBC) [Mass/Vol] 33.5 g/dL 32-36 [facility] Work Phone: No Panel Informationon 04-03 Estimated GFR (MDRD) Amer 119 mL/min >60 [facility] Work Phone: Estimated GFR (MDRD) Non-Af Amer 98 mL/min >60 [facility] Work Phone: Platelets bldon 04-03-2021 Platelets (Bld) [#/Vol] 352 10*3/uL 150-450 [facility] Work Phone: Serum or plasma albumin linh urement (mass/volume)on 04-03-2021 Albumin [Mass/Vol] 3.6 g/dL 3.2-5.[address] [facility] Work Phone: Serum or plasma albumin/glob ulin mass ratioon 04-03-2021 Albumin/Globulin [Mass ratio] 0.9 {ratio} 0.9-2.4 [facility] Work Phone: Serum or plasma calcium linh urement (mass/volume)on 04-03-2021 Calcium [Mass/Vol] 9.3 mg/dL 8.5-10.[address] [facility] Work Phone: Serum or plasma creatinine m easurement (mass/volume)on 04-03-2021 Creatinine [Mass/Vol] 0.63 mg/dL 0.55-1.02 [facility] Work Phone: Comment on above: The validity of the calculated GFR & GFRAA in patients over 70 years has not been determined. Clinical correlation is essential. Serum or plasma urea nitroge n measurement (mass/volume)on 04-03-2021 Urea nitrogen [Mass/Vol] 14 mg/dL 7-18 [facility] Work Phone: Thin prep Papanicolaou smear with manual screeningon 04-03-2021 Thin prep Papanicolaou smear with manual screening 18 U/L 15-37 [facility] Work Phone: Thin prep Papanicolaou smear with manual screening 5 5-15 [facility] Work Phone: HISTORY PHYSICALon 0 HISTORY PHYSICAL HNO ID: [id number] Author: Javy Shipley Service: Gastroenterology Author Type: Physician Type: HANDP Filed: 08/06/2019 1:25 PM Note Text: PROCEDURAL SEDATION HISTORY AND PHYSICAL EXAM SERVICE DATE: 08/06/2019 SERVICE TIME: 12:59 PM Subjective HPI: This is a 74 year old female who presents with a personal history of colon polyps PAST ANESTHESIA HISTORY: No history of adverse event PAST MEDICAL HISTORY Diagnosis Date - Acid reflux - Acute gastritis without mention of hemorrhage - Allergic rhinitis due to other allergen - Benign neoplasm of colon - Contact dermatitis and other eczema due to other specified agent - Diverticulosis of colon (without mention of hemorrhage) Diverticulosis - Dyspepsia and other specified disorders of function of stomach - Personal history of colonic polyps PAST SURGICAL HISTORY Procedure Laterality Date - COLONOSCOP W/ OR W/O [facility] SPEC 09/02/99 Colonoscopy - COLONOSCOP W/ OR W/O [facility] SPEC 04/07/04 Colonoscopy - COLONOSCOP W/ OR W/O [facility] SPEC 05/29/09 - COLONOSCOP W/ OR W/O [facility] SPEC 06/06/2014 Colonoscopy - EGD W/O OR W/BRUSH/WASH 04/26/12 EGD Prior to Admission medications as of 08/06/19 1247 Medication Sig Last Dose Taking trimethoprim (PROLOPRIM) 100 mg tablet Take 100 mg by mouth daily at bedtime. 08/05/2019 at Unknown time Yes Cholecalciferol, Vitamin D3, (VITAMIN D) 1,000 unit cap Take 1,000 Units by mouth twice daily. Past Week at Unknown time Yes COMPOUNDED PRESCRIPTION Nasacort AQ /Afrin (8 to 1) 1 squirt twice a day each nostril 08/05/2019 at Unknown time Yes Ascorbic Acid (VITAMIN C) 1,000 mg tablet Take 1,000 mg by mouth once daily. Past Week at Unknown time Yes LACTOBACILLUS COMBO NO.6 (PROBIOTIC COMPLEX ORAL) Take by mouth once daily. Past Week at Unknown time Yes Biotin 10 mg Tab Take by mouth. Past Week at Unknown time Yes Flaxseed Oil 1,000 mg cap Take 1 capsule by mouth once daily. fexofenadine (JEZ ALLERGY) 180 mg tablet Take 180 mg by mouth once daily. Unknown at Unknown time aspirin, enteric coated (ASPIRIN, ENTERIC COATED) 81 mg EC tablet Take 81 mg by mouth as directed. Takes 1 tablet 3 times per week. CALCIUM CARBONATE/VITAMIN D3 (CALCIUM + D ORAL) Take by mouth. ALLERGIES Allergen Reactions - Adhesive Tape (Mitzi* Intolerance - Amoxicillin red rash labored breathing - Axid [Nizatidine] red skin labored breathing - Clarithromycin Rash - Erythromycin GI Upset - Levaquin [Levofloxa* GI Upset - Naproxen Rash - Sulfa (Sulfonamide * Hives Objective PHYSICAL EXAM: The remainder of the physical exam is noncontributory. AIRWAY: Airway Visualization of Uvula: Yes Mouth opening greater than 2 fingerbreadths: Yes Neck Full Range of Motion: Yes LUNGS: Lungs clear to auscultation, Good diaphragmatic excursion CARDIAC: Normal S1 and S2; no rubs, murmurs, or gallops Assessment/Plan ASA Class: ASA Class:: Patient with mild systemic disease Active Problems: * No active hospital problems. * Resolved Problems: * No resolved hospital problems. * Provisional Diagnosis/Treatment Plan: Personal history of colon polyps/colonoscopy SEDATION GOAL: Moderate SIGNATURE: Javy Shipley MD PATIENT NAME: Antonio Decker DATE: August 06, 2019 TIME: 12:59 PM PAGER: [facility] NURSING PROGon 08-06-2019 NURSING PROG HNO ID: [id number] Author: Kiana Almazan) ROGELIO Noel Service: ? Author Type: Registered Nurse Type: Nursing Progress Note Filed: 08/06/2019 2:32 PM Note Text: Patient did not experience a fall prior to discharge. Patient did not experience a burn prior to discharge. Kiana Noel RN [facility] NURSING PROG HNO ID: [id number] Author: Kiana Noel RN Service: ? Author Type: Registered Nurse Type: Nursing Progress Note Filed: 08/06/2019 1:36 PM Note Text: Pt received in recovery. Denies pain or nausea. Very awake. Dr. Shipley at bedside and spoke with pt. Abd soft and non distended. Kiana Noel RN [facility] NURSING PROG HNO ID: [id number] Author: Keke Martinez RN Service: ? Author Type: Registered Nurse Type: Nursing Progress Note Filed: 08/06/2019 1:25 PM Note Text: Patient did not experience a fall within the Intraoperative area. Patient did not experience a burn within the Intraoperative area. Keke Martinez RN [facility] NURSING PROG HNO ID: [id number] Author: Kiana Noel RN Service: ? Author Type: Registered Nurse Type: Nursing Progress Note Filed: 08/06/2019 12:58 PM Note Text: [facility] PRE-OP NURSING HAND OFF NOTE SBAR Hand off given to Yumiko Boggs RN. Hand off was communicated verbally and at the patient's bedside and all questions were answered. FALLS/PILLAI Patient did not experience a fall within the Preoperative area. Patient did not experience a burn within the Preoperative area. Kiana Noel RN [facility] PT EDon 08-06-2019 PT ED HNO ID: [id number] Author: Kiana Noel RN Service: ? Author Type: Registered Nurse Type: Patient Education Filed: 08/06/2019 1:40 PM Note Text: POST OP LEARNING RESPONSE INSTRUCTION PROVIDED TO: Patient and Daughter METHOD OF INSTRUCTION: Individual instruction Written instruction - handouts Verbal instruction PATIENT / FAMILY RESPONSE: Verbalizes understanding of: MEDICAL REGIMEN-Importance of following prescribed medical regimen POST-PROCEDURE INSTRUCTIONS-Correct actions to take to reduce post procedure complications WORSENING CONDITION-Signs and symptoms of a worsening condition that warrant a call to the physician FOLLOW-UP PLAN: Patient instructed to call with any further issues Follow up phone call. Contact information given. SUPPLEMENTAL MATERIAL: Post sedation instructions given Procedure discharge instructions REFERRAL (RECOMMENDATION): None Electronically Signed By: Kiana Noel RN In Department: AMBULATORY SURGERY [facility] PT ED HNO ID: [id number] Author: Kiana (Rn) ROGELIO Noel Service: ? Author Type: Registered Nurse Type: Patient Education Filed: 08/06/2019 12:43 PM Note Text: PRE OP LEARNING ASSESSMENT PROCEDURE/SURGERY: GI PROCEDURES: Colonoscopy READINESS TO LEARN COGNITIVE ABILITY: Alert and oriented MOTIVATION TO LEARN: Eager FAMILY SUPPORT: High - Very involved in pt care PATIENT LEARNS BEST BY: Multiple Methods FACTORS AFFECTING LEARNING: None PHYSICAL LIMITATIONS AFFECTING LEARNING: None Electronically Signed By: Kiana Noel RN In Department: AMBULATORY SURGERY [facility] 03-19-2019 CNPN Telephone (ASWSTR) -------- ANTONIO DECKER ([id number]) 1945 F NFR Date Time Provider Department 03/19/19 JAVY SHIPLEY During your visit today, we recorded the following information about you: Shakira Beverly 03/23/2019 10:12 AM Addendum Scheduled colonoscopy 06/18/[address] Shipley. Mailed prep instructions - Shakira Beverly WSTR OPEN ACCESS QUESTIONNAIRE 1. Are you or could you be ? No 2. Are you currently having any stomach/gastrointestinal issues at this time such as constipation, diarrhea, abdominal pain, rectal bleeding etc? Yes / acid reflux 3. Do you have an implanted device such as a defibrillator, pacemaker, Cardiac Stent or deep brain stimulation device? No 4. Do you have any new or past cardiac (heart) or pulmonary (lung) issues? No 5. Is the patient's BMI 40 or greater? No:There is no height or weight on file to calculate BMI.. Last Wt 12/14/14 : 62.1 kg (137 lb) Last Ht 02/13/07 : 167.6 cm (5' 6) 6. Have you had difficulty with prior sedations or complications with other procedures? No 7. Have you had difficulty with anesthesia previously re: ? Difficult intubation? No ? Other difficulty or allergic reaction to anesthesia other than post op N/V? No 8. Do you currently use oxygen or a breathing machine at night? No 9. Do you take any narcotics, depression or anti-Anxiety medications or 3 or more prescription drugs on a daily basis? No 10. Do you use any illegal or recreational drugs? No 11. Have you been hospitalized in the past 6 weeks? No 12. Are you on dialysis or have Chronic Kidney Disease? No 13. Have you been diagnosed with chronic liver disease such as hepatitis or cirrhosis? No 14. Do you have a seizure disorder? No 15. Do you have difficulty swallowing? No 16. Do you have ulcerative colitis or Crohn's disease? No 17. Do you take any Blood thinners, including Aspirin or fish oil? YES:fish oil 18. Do you have any blood disorders (re:hemophiliac)? No 19. Are you Diabetic? No 20. Any other important health information we should be made aware of prior to your colonoscopy? No 21. Any alcohol use: YES: What type of alcohol, how much and how often do you drink? : Wine / occasionally To be completed by LIP: Patient appropriate for Open Access Colonoscopy: Yes: appropriate for Open Access Procedure Checklist: Prior to closing the encounter: ? Complete questionnaire: Yes ? Confirm Prep order has been Ordered/Pended: Yes. ? Patient's procedure could be delayed if not given the script for the prep. Please ensure the prep is escripted to pharmacy or printed. Instructions for the prep will print upon filing or pending this smartset. ? Please send all open access questionnaires to [facility] Sched Pool #[id number] Shakira Nickerson Pss 03/19/2019 1:54 PM Signed Health Information For Patients and the Community How to Prepare for Your Colonoscopy Using Golytely, Nulytely, Trilyte or Colyte Preparations IMPORTANT - Please Read These Instructions at Least 2 Weeks Before Your Colonoscopy [place] Instructions: ?Your bowel must be empty so that your doctor can clearly view your colon. Follow all of the instructions in this handout EXACTLY as they are written. If you do NOT follow the directions for when to start drinking the bowel preparation (see next page), your colonoscopy WILL be cancelled. ?Do NOT eat any solid food the ENTIRE day before your colonoscopy. ?Buy your bowel preparation at least 5 days before your colonoscopy. ?Do NOT mix the solution until the day before your colonoscopy. Designated Claims Associate on the Day of Your Exam A responsible family member or friend MUST come with you to your colonoscopy and REMAIN in the endoscopy area until you are discharged! You are NOT ALLOWED to drive, take a taxi or bus, or leave the Endoscopy Center ALONE. If you do not have a responsible wagon driver (family member or friend) with you to take you home, your exam cannot be done with sedation and will be cancelled. Medications Some of the medicines you take may need to be stopped or adjusted before your colonoscopy. You MUST call the doctor who ordered any of the following medicines at least 2 weeks before your colonoscopy. ?Blood thinners -- such as Coumadin? (warfarin), Plavix? (clopidogrel), Ticlid? (ticlopidine hydrochloride), Agrylin? (anagrelide), Xarelto? (Rivaroxaban), Pradaxa? (Dabigatran), Eliquis? (Apixaban), and Effient? (Prasugrel). ?Insulin or diabetes pills. Please call the doctor that monitors your glucose levels. Your insulin dosage may need to be adjusted due to the diet restrictions required with this bowel preparation. (Please bring your diabetes medicines with you on the day of your procedure.) If you take aspirin, take it and ALL other medications prescribed by your doctor. On the day of your colonoscopy, take your medications with a sip of water. Revised 04/2016 1 Five (5) Days Before Your Colonoscopy ?Do NOT take medicines that stop diarrhea -- such as Imodium?, Kaopectate?, or Pepto Bismol?. ?Do NOT take fiber supplements -- such as Metamucil?, Citrucel?, or Perdiem?. ?Do NOT take products that contain iron -- such as multi-vitamins -- (the label lists what is in the products). ?Do NOT take vitamin E. Buy the prescription bowel preparation solution at your local pharmacy or drugstore pharmacy. Three (3) Days Before Your Colonoscopy Do NOT eat high-fiber foods -- such as popcorn, beans, seeds (flax, sunflower, quinoa), multigrain bread, nuts, salad/vegetables, or fresh and dried fruit. One (1) Day Before Your Colonoscopy Only drink clear liquids the ENTIRE DAY before your colonoscopy. Do NOT eat any solid foods. Drink at least 8 ounces of clear liquids every hour after waking up. The clear liquids you can drink include: ?water, apple, or white grape juice; broth; coffee or tea (without milk or creamer); clear carbonated beverages such as kourtney twyla or lemon-[place] soda; Gatorade? or other sports drinks (not red); Jorge-Aid? or other flavored drinks (not red). You may eat plain jello or other gelatins (not red) or popsicles (not red). Do NOT drink alcohol on the day before or the day of the procedure. 2 Revised 04/2016 When to Mix and Drink Your Bowel Prep Follow the instructions on the label. After mixing, place the solution in the refrigerator for a couple of hours before drinking. You may add the flavor packet that came with the bowel preparation. DO NOT add ice, sugar or any flavorings to the solution. Evening Before Your Colonoscopy ?Start drinking the bowel preparation at 6 PM the evening before your colonoscopy. Drink an 8-oz glass of bowel preparation every 10 minutes. You must finish drinking the solution by 9 PM the night before your scheduled procedure. ?You may continue to drink clear liquids only until midnight. Do NOT eat or drink ANYTHING after midnight the night before your procedure or your procedure may be cancelled. This is for your safety and will reduce the risk of having any food or liquid in your stomach move into your lungs (aspiration) during a procedure. If you take aspirin, take it and ALL other prescribed medicines with a sip of water on the day of your colonoscopy. Contact Information: If you are unable to keep your appointment or have any questions about the instructions, please call the facility where the procedure is being performed. Call between the hours of 8:00 AM and 5:00 PM. If you are calling after 5:00 PM, please call Nurse dictionary editor at [phone]. [facility] [address] [place] [id number] Index # [id number] Revised 04/2016 3 Colonoscopy Procedure Overview Please Read Prior to the Procedure What is a Colonoscopy A colonoscopy is an outpatient procedure in which the inside of the large intestine (colon and rectum) is examined. A colonoscopy is commonly used to evaluate gastrointestinal symptoms, such as rectal and intestinal bleeding, abdominal pain, or changes in bowel habits. Colonoscopies are also performed in individuals without symptoms to check for colorectal polyps or cancer. A screening colonoscopy is recommended for anyone 50 years of age and older, and for anyone with parents, siblings or children with a history of colorectal cancer or polyps. What Happens Before a Colonoscopy To have a successful colonoscopy, your bowel must be empty so that your physician can clearly view the colon. To do this, it is very important to read and follow all of the instructions given to you at least 2 weeks BEFORE your exam. If your bowel is not empty, your colonoscopy will not be successful and may have to be repeated. If you feel nauseated or vomit while taking the bowel preparation, wait 30 minutes before drinking more fluid and start with small sips of solution. Some activity (such as walking) or a few soda crackers may help decrease the nausea you are feeling. If the nausea persists, please contact nurse outside residential sales professional at [phone]. You may experience skin irritation around the anus due to the passage of liquid stools. To prevent and treat skin irritation, you should: ?Apply Vaseline? or Desitin? ointment to the skin around the anus before drinking the bowel preparation medications. These products can be purchased at any drugstore. ?Wipe the skin after each bowel movement with disposable wet wipes instead of toilet paper. These are found in the toilet paper area of the store. ?Sit in a bathtub filled with warm water for 10 to 15 minutes after you finish passing a stool; after soaking, blot the skin dry with a soft cloth, apply Vaseline? or Desitin? ointment to the anal area, and place a cotton ball just outside your anus to absorb leaking fluid. What Happens During a Colonoscopy During a colonoscopy, an experienced physician uses a colonoscope (a long, flexible instrument about 1/2 inch in diameter) to view the lining of the colon. The colonoscope is inserted into the rectum and advanced through the large intestine. If necessary during a colonoscopy, small amounts of tissue can be removed for analysis (a biopsy) and polyps can be identified and entirely removed. In many cases, a colonoscopy allows accurate diagnosis and treatment of colorectal problems without the need for a major operation. Revised 04/2016 5 ?You are asked to wear a hospital gown and an IV will be started. ?You are given a pain reliever and a sedative intravenously (in your vein). You will feel relaxed and somewhat drowsy. ?You will lie on your left side, with your knees drawn up towards your chest. ?A small amount of air is used to expand the colon so the physician can see the colon mason. ?You may feel mild cramping during the procedure. Cramping can be reduced by taking slow, deep breaths. ?The colonoscope is slowly withdrawn while the lining of your bowel is carefully examined. ?The procedure lasts from 30 minutes to 1 hour. What Happens After a Colonoscopy ?You will stay in a recovery room for observation until you are ready for discharge. ?You may feel some cramping or a sensation of having gas, but this quickly passes. ?If sedation has been given, a responsible family member or friend must drive you home. ?Avoid alcohol, driving, and operating machinery for 24 hours following the procedure. ?Unless otherwise instructed, you may immediately return to your normal diet. We recommend you wait until the day after your procedure to resume normal activities. ?If polyps were removed or a biopsy was taken, the physician performing your colonoscopy will tell you when it is safe to resume taking your blood thinners. ?If a biopsy was taken or a polyp was removed, you may notice a little amount of rectal bleeding for 1 to 2 days after the procedure. If you have a large amount of rectal bleeding, high or persistent fevers, or severe abdominal pain within the next 2 weeks, please go to your local emergency room and call the physician who performed your exam. 6 Revised 04/2016 ?Copyright 8107-4750 [facility]. All rights reserved. Revised 04/2016 Allergies As of Date: 03/19/2019 Noted Allergy Reaction ADHESIVE TAPE (ROSINS) 04/20/2012 5 - Intolerance AMOXICILLIN 01/29/2005 Comments: red rash labored breathing AXID (NIZATIDINE) 01/29/2005 Comments: red skin labored breathing CLARITHROMYCIN 12/06/2013 2 - Rash ERYTHROMYCIN 01/29/2005 8 - GI Upset LEVAQUIN (LEVOFLOXACIN) 12/07/2013 8 - GI Upset NAPROXEN 12/06/2013 2 - Rash SULFA (SULFONAMIDE ANTIBIOTICS) 01/29/2005 4 - Hives Date Reviewed: 12/14/2014 Reviewed by: Harriet Mccann LPN - Fully Assessed Reason for Visit: colonoscopy [Other] Primary Visit Diagnosis:Special screening for malignant neoplasms, colon [Z12.11] Order(s):[] Order #: [id number] COLONOSCOPY SCRN NOT HIGH RISK [L5913PBT] Order #: [id number]: 1 FUTURE Prescriptions as of 03/19/2019 Sig: PEG 3350 240 GRAM-ELECTROLYTE* Take 4,000 mL by mouth one ti* CHOLECALCIFEROL (VITAMIN D3) * Take 1,000 Units by mouth twi* FLAXSEED OIL 1,000 MG CAPSULE Take 1 capsule by mouth once * COMPOUNDED PRESCRIPTION Nasacort AQ /Afrin (8 to 1* ASCORBIC ACID (VITAMIN C) 1,0* Take 1,000 mg by mouth once d* FEXOFENADINE 180 MG TABLET Take 180 mg by mouth once bronson* PROBIOTIC COMPLEX ORAL Take by mouth once daily. ASPIRIN 81 MG TABLET,DELAYED * Take 81 mg by mouth as direct* BIOTIN 10 MG TABLET Take by mouth. CALCIUM + D ORAL Take by mouth. Problem List As Of Date 03/19/2019 Noted Resolved ALLERGIC RHINITIS NEC [J30.89] HEMORRHOIDS NOS [K64.9] More... DIVERTICULOSIS OF COLON W/O BLEED [K57.30] More... DERMATITIS NEC [L25.8] OSTEOPOROSIS NOS [M81.0] 02/08/2005 HYPERLIPIDEMIA NEC/NOS [E78.5] 02/13/2007 DIFFUS CYSTIC MASTOPATHY [N60.19] 02/13/2007 SKIN DISORDER NOS [L98.9] 03/08/2007 Dyspepsia and other specified disorders of func*04/26/2012 Acute gastritis without mention of hemorrhage [*04/26/2012 Other instructions from your clinician: Health Information For Patients and the Community How to Prepare for Your Colonoscopy Using Golytely, Nulytely, Trilyte or Colyte Preparations IMPORTANT - Please Read These Instructions at Least 2 Weeks Before Your Colonoscopy [place] Instructions: ?Your bowel must be empty so that your doctor can clearly view your colon. Follow all of the instructions in this handout EXACTLY as they are written. If you do NOT follow the directions for when to start drinking the bowel preparation (see next page), your colonoscopy WILL be cancelled. ?Do NOT eat any solid food the ENTIRE day before your colonoscopy. ?Buy your bowel preparation at least 5 days before your colonoscopy. ?Do NOT mix the solution until the day before your colonoscopy. Designated Claims Associate on the Day of Your Exam A responsible family member or friend MUST come with you to your colonoscopy and REMAIN in the endoscopy area until you are discharged! You are NOT ALLOWED to drive, take a taxi or bus, or leave the Endoscopy Center ALONE. If you do not have a responsible wagon driver (family member or friend) with you to take you home, your exam cannot be done with sedation and will be cancelled. Medications Some of the medicines you take may need to be stopped or adjusted before your colonoscopy. You MUST call the doctor who ordered any of the following medicines at least 2 weeks before your colonoscopy. ?Blood thinners -- such as Coumadin? (warfarin), Plavix? (clopidogrel), Ticlid? (ticlopidine hydrochloride), Agrylin? (anagrelide), Xarelto? (Rivaroxaban), Pradaxa? (Dabigatran), Eliquis? (Apixaban), and Effient? (Prasugrel). ?Insulin or diabetes pills. Please call the doctor that monitors your glucose levels. Your insulin dosage may need to be adjusted due to the diet restrictions required with this bowel preparation. (Please bring your diabetes medicines with you on the day of your procedure.) If you take aspirin, take it and ALL other medications prescribed by your doctor. On the day of your colonoscopy, take your medications with a sip of water. Revised 04/2016 1 Five (5) Days Before Your Colonoscopy ?Do NOT take medicines that stop diarrhea -- such as Imodium?, Kaopectate?, or Pepto Bismol?. ?Do NOT take fiber supplements -- such as Metamucil?, Citrucel?, or Perdiem?. ?Do NOT take products that contain iron -- such as multi-vitamins -- (the label lists what is in the products). ?Do NOT take vitamin E. Buy the prescription bowel preparation solution at your local pharmacy or drugstore pharmacy. Three (3) Days Before Your Colonoscopy Do NOT eat high-fiber foods -- such as popcorn, beans, seeds (flax, sunflower, quinoa), multigrain bread, nuts, salad/vegetables, or fresh and dried fruit. One (1) Day Before Your Colonoscopy Only drink clear liquids the ENTIRE DAY before your colonoscopy. Do NOT eat any solid foods. Drink at least 8 ounces of clear liquids every hour after waking up. The clear liquids you can drink include: ?water, apple, or white grape juice; broth; coffee or tea (without milk or creamer); clear carbonated beverages such as kourtney twyla or lemon-cedarville soda; Gatorade? or other sports drinks (not red); Jorge-Aid? or other flavored drinks (not red). You may eat plain jello or other gelatins (not red) or popsicles (not red). Do NOT drink alcohol on the day before or the day of the procedure. 2 Revised 04/2016 When to Mix and Drink Your Bowel Prep Follow the instructions on the label. After mixing, place the solution in the refrigerator for a couple of hours before drinking. You may add the flavor packet that came with the bowel preparation. DO NOT add ice, sugar or any flavorings to the solution. Evening Before Your Colonoscopy ?Start drinking the bowel preparation at 6 PM the evening before your colonoscopy. Drink an 8-oz glass of bowel preparation every 10 minutes. You must finish drinking the solution by 9 PM the night before your scheduled procedure. ?You may continue to drink clear liquids only until midnight. Do NOT eat or drink ANYTHING after midnight the night before your procedure or your procedure may be cancelled. This is for your safety and will reduce the risk of having any food or liquid in your stomach move into your lungs (aspiration) during a procedure. If you take aspirin, take it and ALL other prescribed medicines with a sip of water on the day of your colonoscopy. Contact Information: If you are unable to keep your appointment or have any questions about the instructions, please call the facility where the procedure is being performed. Call between the hours of 8:00 AM and 5:00 PM. If you are calling after 5:00 PM, please call Nurse dictionary editor at [phone]. [facility] [address] [place] [id number] Index # [id number] Revised 04/2016 3 Colonoscopy Procedure Overview Please Read Prior to the Procedure What is a Colonoscopy A colonoscopy is an outpatient procedure in which the inside of the large intestine (colon and rectum) is examined. A colonoscopy is commonly used to evaluate gastrointestinal symptoms, such as rectal and intestinal bleeding, abdominal pain, or changes in bowel habits. Colonoscopies are also performed in individuals without symptoms to check for colorectal polyps or cancer. A screening colonoscopy is recommended for anyone 50 years of age and older, and for anyone with parents, siblings or children with a history of colorectal cancer or polyps. What Happens Before a Colonoscopy To have a successful colonoscopy, your bowel must be empty so that your physician can clearly view the colon. To do this, it is very important to read and follow all of the instructions given to you at least 2 weeks BEFORE your exam. If your bowel is not empty, your colonoscopy will not be successful and may have to be repeated. If you feel nauseated or vomit while taking the bowel preparation, wait 30 minutes before drinking more fluid and start with small sips of solution. Some activity (such as walking) or a few soda crackers may help decrease the nausea you are feeling. If the nausea persists, please contact nurse outside residential sales professional at [phone]. You may experience skin irritation around the anus due to the passage of liquid stools. To prevent and treat skin irritation, you should: ?Apply Vaseline? or Desitin? ointment to the skin around the anus before drinking the bowel preparation medications. These products can be purchased at any drugstore. ?Wipe the skin after each bowel movement with disposable wet wipes instead of toilet paper. These are found in the toilet paper area of the store. ?Sit in a bathtub filled with warm water for 10 to 15 minutes after you finish passing a stool; after soaking, blot the skin dry with a soft cloth, apply Vaseline? or Desitin? ointment to the anal area, and place a cotton ball just outside your anus to absorb leaking fluid. What Happens During a Colonoscopy During a colonoscopy, an experienced physician uses a colonoscope (a long, flexible instrument about 1/2 inch in diameter) to view the lining of the colon. The colonoscope is inserted into the rectum and advanced through the large intestine. If necessary during a colonoscopy, small amounts of tissue can be removed for analysis (a biopsy) and polyps can be identified and entirely removed. In many cases, a colonoscopy allows accurate diagnosis and treatment of colorectal problems without the need for a major operation. Revised 04/2016 5 ?You are asked to wear a hospital gown and an IV will be started. ?You are given a pain reliever and a sedative intravenously (in your vein). You will feel relaxed and somewhat drowsy. ?You will lie on your left side, with your knees drawn up towards your chest. ?A small amount of air is used to expand the colon so the physician can see the colon mason. ?You may feel mild cramping during the procedure. Cramping can be reduced by taking slow, deep breaths. ?The colonoscope is slowly withdrawn while the lining of your bowel is carefully examined. ?The procedure lasts from 30 minutes to 1 hour. What Happens After a Colonoscopy ?You will stay in a recovery room for observation until you are ready for discharge. ?You may feel some cramping or a sensation of having gas, but this quickly passes. ?If sedation has been given, a responsible family member or friend must drive you home. ?Avoid alcohol, driving, and operating machinery for 24 hours following the procedure. ?Unless otherwise instructed, you may immediately return to your normal diet. We recommend you wait until the day after your procedure to resume normal activities. ?If polyps were removed or a biopsy was taken, the physician performing your colonoscopy will tell you when it is safe to resume taking your blood thinners. ?If a biopsy was taken or a polyp was removed, you may notice a little amount of rectal bleeding for 1 to 2 days after the procedure. If you have a large amount of rectal bleeding, high or persistent fevers, or severe abdominal pain within the next 2 weeks, please go to your local emergency room and call the physician who performed your exam. 6 Revised 04/2016 ?Copyright 8324-7887 [facility]. All rights reserved. Revised 04/2016 Prescriptions ordered this encounter Disp Refills Start End PEG 3350 240 GRAM-ELECTROLYTES 22.72* 4000* 0 03/23/2019 03/23/2019 Route: ORAL Sig: Take 4,000 mL by mouth one time only for 1 dose. Encounter Status:Closed by SHAKIRA HILL on 05/25/19 Normal [facility] HOSPon 03-19-2019 HOSP Patient:Александр Decker MRN: Height:5' 6(1.676 m) Weight:No patient weight recorded within the last 30 days. Outpatient Medications as of 08/06/19: trimethoprim (PROLOPRIM) 100 mg tablet Cholecalciferol, Vitamin D3, (VITAMIN D) 1,000 unit cap Flaxseed Oil 1,000 mg cap COMPOUNDED PRESCRIPTION Ascorbic Acid (VITAMIN C) 1,000 mg tablet fexofenadine (JEZ ALLERGY) 180 mg tablet LACTOBACILLUS COMBO NO.6 (PROBIOTIC COMPLEX ORAL) aspirin, enteric coated (ASPIRIN, ENTERIC COATED) 81 mg EC tablet Biotin 10 mg Tab CALCIUM CARBONATE/VITAMIN D3 (CALCIUM + D ORAL) Admission/Clinic Administered Medications as of 08/06/19: lactated ringers infusion Problem List: Allergic rhinitis due to other allergen [J30.89] Unspecified hemorrhoids without mention of complication [K64.9] Diverticulosis of colon (without mention of hemorrhage) [K57.30] Contact dermatitis and other eczema due to other specified agent [L25.8] Osteoporosis, unspecified [M81.0] Other and unspecified hyperlipidemia [E78.5] Diffuse cystic mastopathy [N60.19] Unspecified disorder of skin and subcutaneous tissue [L98.9] Dyspepsia and other specified disorders of function of stomach [K31.89, R10.13] Acute gastritis without mention of hemorrhage [K29.00] Allergies: Adhesive Tape (Rosins) Amoxicillin Axid [Nizatidine] Clarithromycin Erythromycin Levaquin [Levofloxacin] Naproxen Sulfa (Sulfonamide Antibiotics) Date Verified: 08/06/19 Lab Values No results within the last 30 days for the following basenames: K,HCT No progress notes entered within the past 30 days Normal [facility] Metabolic Panel, Comprehensi ve (60480)Ordered By: Pressure Dispatcher on 02-12-2015 Albumin [Mass/Vol] 4.2 g/dL Normal 3.6-4.[address] [facility] Internal Medicine; [facility] Work Phone: Comment on above: PATIENT NOT FASTINGP ERFORMED BY: CB [facility] Cozizb4910 [facility] [id number] Information: [id number] Albumin/Globulin [Mass ratio] 1.4 {ratio} Normal 1.1-2.5 [facility]; [facility] Work Phone: Comment on above: PATIENT NOT FASTINGP ERFORMED BY: GONZALO LabCoroslyn PelaezJzzyfm5345 [facility] [id number] Information: [id number] ALP [Catalytic activity/Vol] 59 U/L Normal 39-117 [facility]; [facility] Work Phone: Comment on above: PATIENT NOT FASTINGP ERFORMED BY: GONZALO LabCoroslyn VillagomezQvvspe1473 [facility] [id number] Information: [id number] ALT [Catalytic activity/Vol] 8 U/L Normal 0-32 [facility]; [facility] Work Phone: Comment on above: PATIENT NOT FASTINGP ERFORMED BY: GONZALO Pelaez6370 [facility] [id number] Information: [id number] AST [Catalytic activity/Vol] 16 U/L Normal 0-40 [facility]; [facility] Work Phone: Comment on above: PATIENT NOT FASTINGP ERFORMED BY: GONZALO Petit Tiuqby0976 [facility] [id number] Information: [id number] Bilirubin [Mass/Vol] 0.4 mg/dL Normal 0.0-1.2 Comp rehensive Internal Medicine; [facility] Work Phone: Comment on above: PATIENT NOT FASTINGP ERFORMED BY: GONZALO Lab[facility] Zljhai0525 [facility] [id number] Information: [id number] Calcium [Mass/Vol] 9.5 mg/dL Normal 8.7-10.[address] [facility] Internal Medicine; [facility] Work Phone: Comment on above: PATIENT NOT FASTINGP ERFORMED BY: GONZALO [facility] Uotmag8365 [facility] [id number] Information: [id number] Chloride [Moles/Vol] 98 mmol/L Normal 97-108 Comp rehensive [facility]; [facility] Work Phone: Comment on above: PATIENT NOT FASTINGP ERFORMED BY: CB [facility] Vngrar7092 [facility] [place] [id number] Information: [id number] CO2 [Moles/Vol] 27 mmol/L Normal 18-29 [facility] Internal Medicine; [facility] Work Phone: Comment on above: PATIENT NOT FASTINGP ERFORMED BY: CB [facility] Qwuzzt8564 [place] [facility] [id number] Information: [id number] Creatinine [Mass/Vol] 0.82 mg/dL Normal 0.57-1.00 [facility]; [facility] Work Phone: Comment on above: PATIENT NOT FASTINGP ERFORMED BY: CB [facility] Swapin8471 [facility] [id number] Information: [id number] GFR/1.73 sq M.predicted among blacks CKD-EPI (S/P/Bld) [Vol rate/Area] 85 mL/min/1.73 Normal [facility]; [facility] Work Phone: Comment on above: PATIENT NOT FASTINGP ERFORMED BY: CB [facility] Edgxvw1875 [facility] [id number] Information: [id number] GFR/1.73 sq M.predicted among non-blacks CKD-EPI (S/P/Bld) [Vol rate/Area] 74 mL/min/1.73 Normal [facility]; [facility] Work Phone: Comment on above: PATIENT NOT FASTINGP ERFORMED BY: CB [facility] Eimyen8291 [place] [id number] Information: [id number] Globulin (S) [Mass/Vol] 2.9 g/dL Normal 1.5-4.5 [facility]; [facility] Work Phone: Comment on above: PATIENT NOT FASTINGP ERFORMED BY: CB [facility] Hbisof7643 [place] [facility] [id number] Information: [id number] Glucose [Mass/Vol] 94 mg/dL Normal 65-[address] [facility] Internal Medicine; [facility] Work Phone: Comment on above: PATIENT NOT FASTINGP ERFORMED BY: GONZALO Pelaez6370 [place] [id number] Information: [id number] Potassium [Moles/Vol] 4.7 mmol/L Normal 3.5-5.2 [facility]; [facility] Work Phone: Comment on above: PATIENT NOT FASTINGP ERFORMED BY: GONZALO LabCoroslyn VillagomezNuxfdd5313 [facility] [id number] Information: [id number] Protein [Mass/Vol] 7.1 g/dL Normal 6.0-8.[address] [facility] Internal Medicine; [facility] Work Phone: Comment on above: PATIENT NOT FASTINGP ERFORMED BY: GONZALO Petit Moprse3501 [facility] [id number] Information: [id number] Sodium [Moles/Vol] 137 mmol/L Normal 134-[address] [facility] Internal Medicine; [facility] Work Phone: Comment on above: PATIENT NOT FASTINGP ERFORMED BY: GONZALO Lab[facility] Stkpky9056 [facility] [id number] Information: [id number] Urea nitrogen [Mass/Vol] 10 mg/dL Normal 8-27 [facility]; [facility] Work Phone: Comment on above: PATIENT NOT FASTINGP ERFORMED BY: GONZALO [facility] Msepoh6060 [facility] [id number] Information: [id number] Urea nitrogen/Creatinine [Mass ratio] 12 mg/mg Normal 11-26 [facility]; [facility] Work Phone: Comment on above: PATIENT NOT FASTINGP ERFORMED BY: GONZALO [facility] Ixlbcm1920 [facility] [id number] Information: [id number] URINE RACHEL CULTURE-PHILIPP COL C OUNT (36039)Ordered By: Pressure Dispatcher on 12-18-2014 Bacteria identified Cx Nom (U) Final report Normal [facility]; [facility] Work Phone: Comment on above: PATIENT NOT FASTINGP ERFORMED BY: Alcresta70 [facility] HospitalCool[facility]Critical access hospital [id number] Information: SRC:[facility] [id number] Bacteria identified Cx Nom (U) MUG Normal [facility]; [facility] Work Phone: Comment on above: Mixed urogenital mey ra10,000-25,000 colony forming units per mL PATIENT NOT FASTINGP ERFORMED BY: GONZALO Alcresta70 [place] [employer] [id number] Information: SRC:[facility] [id number] Urinalysis, Office (26026)Or dered By: Terra Cazares on 12-18-2014 Bilirubin Ql (U) Small Normal Comprehe nsive Internal Medicine; [facility] Work Phone: Glucose Test strip (U) [Mass/Vol] Negative Normal [facility]; [facility] Work Phone: Hemoglobin Ql (U) Hemolyzed Small Normal Co mprehensive [facility]; [facility] Work Phone: Ketones Ql (U) Negative Normal Comprehens jeremiah [facility]; [facility] Work Phone: Leukocyte esterase Test strip Ql (U) Negative Normal [facility]; [facility] Work Phone: Nitrite Ql (U) Negative Normal Comprehens jeremiah [facility]; [facility] Work Phone: pH (U) 6.5 [pH] Normal [facility]; [facility] Work Phone: Protein Ql (U) Negative Normal Comprehens jeremiah [facility]; [facility] Work Phone: Specific gravity (U) [Rel density] 1.010 1 Normal [facility]; [facility] Work Phone: Urobilinogen (24H U) [Mass/Time] Normal Normal [facility]; [facility] Work Phone: Urinalysis, Office (03554)Or dered By: Terra Cazares on 11-20-2014 Bilirubin Ql (U) Negative Normal Comprehe nsive Internal Medicine; [facility] Work Phone: Glucose Test strip (U) [Mass/Vol] Negative Normal [facility]; [facility] Work Phone: Hemoglobin Ql (U) Non Hemolyzed Trace Normal [facility]; [facility] Work Phone: Ketones Ql (U) Negative Normal Comprehens jeremiah [facility]; [facility] Work Phone: Leukocyte esterase Test strip Ql (U) Negative Normal [facility]; [facility] Work Phone: Nitrite Ql (U) Negative Normal Comprehens [facility]; [facility] Work Phone: pH (U) 7 [pH] Normal [facility]; [facility] Work Phone: Protein Ql (U) Negative Normal Comprehens [facility]; [facility] Work Phone: Specific gravity (U) [Rel density] 1.005 1 Normal [facility]; [facility] Work Phone: Urobilinogen (24H U) [Mass/Time] Normal Normal [facility]; [facility] Work Phone: Vitamin D Hydroxy (44776)Ord ered By: Pressure Dispatcher on 06-28-2014 25-hydroxyvitamin D [Mass/Vol] 37.9 ng/mL Normal 30.0-100.0 [facility]; [facility] Work Phone: Comment on above: Vitamin D deficiency has been defined by the [place] of[place]icine and an Endocrine Society practice guideline as alevel of serum 25-OH vitamin D less than 20 ng/mL (1,2).The Endocrine Society went on to further define vitamin Dinsufficiency as a level between 21 and 29 ng/mL (2).1. IOM ([place] of Medicine). 2010. Dietary reference intakes for calcium and D. [place]: The National Academies Press.2. Leland MF, Gerry NC, Esme ARRIAGA, et al. Evaluation, treatment, and prevention of vitamin D deficiency: an Endocrine Society clinical practice guideline. JCEM. 2010; 96(1):1911-30. PATIENT NOT FASTINGP ERFORMED BY: [facility]6370 [facility] [id number] Information: [id number] Calcium Serum (92157)Ordered By: Pressure Dispatcher on 12-03-2013 Calcium [Mass/Vol] 9.6 mg/dL Normal 8.6-10.[address] [facility]; [facility] Work Phone: Comment on above: PATIENT NOT FASTINGP ERFORMED BY: [facility]6[address] [facility] [id number] Information: [id number] CBC, PLATELETS & MANUAL DIFF (29603)Ordered By: Pressure Dispatcher on 11-09-2013 Basophils (Bld) [#/Vol] 0.0 10*3/uL Normal 0.0-0.2 [facility]; [facility] Work Phone: Comment on above: PATIENT NOT FASTINGP ERFORMED BY: [facility]6[address] [facility] [id number] Information: [id number] Basophils/100 WBC (Bld) 0 % Normal 0-3 [facility]; [facility] Work Phone: Comment on above: The percent (%) diff erential reference intervals for normal cell typeswill be removed from patient reports beginning November 19, 2013,consistent with CAP standards. PATIENT NOT FASTINGP ERFORMED BY: [facility]6[address] [facility] [id number] Information: [id number] Eosinophils (Bld) [#/Vol] 0.1 10*3/uL Normal 0.0-0.4 [facility]; [facility] Work Phone: Comment on above: PATIENT NOT FASTINGP ERFORMED BY: [facility]6[address] [facility] [id number] Information: [id number] Eosinophils/100 WBC (Bld) 2 % Normal 0-5 [facility]; [facility] Work Phone: Comment on above: The percent (%) diff erential reference intervals for normal cell typeswill be removed from patient reports beginning November 19, 2013,consistent with CAP standards. PATIENT NOT FASTINGP ERFORMED BY: [place] 0135370 [facility] [id number] Information: [id number] Erythrocyte distribution width (RBC) [Ratio] 13.4 % Normal 12.3-15.4 [facility]; [facility] Work Phone: Comment on above: PATIENT NOT FASTINGP ERFORMED BY: [place] 0135370 [facility] [id number] Information: [id number] Hematocrit (Bld) [Volume fraction] 41.7 % Normal 34.0-46.6 [facility]; [facility] Work Phone: Comment on above: PATIENT NOT FASTINGP ERFORMED BY: [facility]6[address] [facility] [id number] Information: [id number] Hemoglobin (Bld) [Mass/Vol] 14.0 g/dL Normal 11.1-15.9 [facility]; [facility] Work Phone: Comment on above: PATIENT NOT FASTINGP ERFORMED BY: [facility]6[address] [facility] [id number] Information: [id number] Immature granulocytes (Bld) [#/Vol] 0.0 10*3/uL Normal 0.0-0.1 [facility]; [facility] Work Phone: Comment on above: PATIENT NOT FASTINGP ERFORMED BY: [facility]6[address] [facility] [id number] Information: [id number] Immature granulocytes/100 WBC (Bld) 0 % Normal 0-2 [facility]; [facility] Work Phone: Comment on above: The percent (%) diff erential reference intervals for normal cell typeswill be removed from patient reports beginning November 19, 2013,consistent with CAP standards. PATIENT NOT FASTINGP ERFORMED BY: [facility]6[address] [facility] [id number] Information: [id number] Lymphocytes (Bld) [#/Vol] 1.0 10*3/uL Normal 0.7-3.1 [facility]; [facility] Work Phone: Comment on above: PATIENT NOT FASTINGP ERFORMED BY: [place] 0135370 [facility] [id number] Information: [id number] Lymphocytes/100 WBC (Bld) 19 % Normal 14-46 [facility]; [facility] Work Phone: Comment on above: The percent (%) diff erential reference intervals for normal cell typeswill be removed from patient reports beginning November 19, 2013,consistent with CAP standards. PATIENT NOT FASTINGP ERFORMED BY: [facility]6[address] [facility] [id number] Information: [id number] MCH (RBC) [Entitic mass] 30.6 pg Normal 26.6-33.0 [facility]; [facility] Work Phone: Comment on above: PATIENT NOT FASTINGP ERFORMED BY: [facility]6[address] [facility] [id number] Information: [id number] MCHC (RBC) [Mass/Vol] 33.6 g/dL Normal 31.5-35.7 [facility]; [facility] Work Phone: Comment on above: PATIENT NOT FASTINGP ERFORMED BY: [facility]6[address] [facility] [id number] Information: [id number] MCV (RBC) [Entitic vol] 91 fL Normal 79-97 [facility]; [facility] Work Phone: Comment on above: PATIENT NOT FASTINGP ERFORMED BY: GONZALO Pelaez6370 [facility] [id number] Information: [id number] Monocytes (Bld) [#/Vol] 0.4 10*3/uL Normal 0.1-0.9 [facility]; [facility] Work Phone: Comment on above: PATIENT NOT FASTINGP ERFORMED BY: GONZALO Peitt Libnzw1316 [facility] [id number] Information: [id number] Monocytes/100 WBC (Bld) 8 % Normal 4-12 [facility]; [facility] Work Phone: Comment on above: The percent (%) diff erential reference intervals for normal cell typeswill be removed from patient reports beginning November 19, 2013,consistent with CAP standards. PATIENT NOT FASTINGP ERFORMED BY: GONZALO Petit Zesdpb3138 [facility] [id number] Information: [id number] Neutrophils (Bld) [#/Vol] 3.7 10*3/uL Normal 1.4-7.0 [facility]; [facility] Work Phone: Comment on above: PATIENT NOT FASTINGP ERFORMED BY: GONZALO Petit Dkfpmv5660 [facility] [id number] Information: [id number] Neutrophils/100 WBC (Bld) 71 % Normal 40-74 [facility]; [facility] Work Phone: Comment on above: The percent (%) diff erential reference intervals for normal cell typeswill be removed from patient reports beginning November 19, 2013,consistent with CAP standards. PATIENT NOT FASTINGP ERFORMED BY: GONZALO Petit Ugzwrx4973 [facility] [id number] Information: [id number] Platelets (Bld) [#/Vol] 352 10*3/uL Normal 150-379 [facility]; [facility] Work Phone: Comment on above: PATIENT NOT FASTINGP ERFORMED BY: GONZALO AriasCoroslyn PelaezDmwbnw[address] [facility] [place] [id number] Information: [id number] RBC (Bld) [#/Vol] 4.57 10*6/uL Normal 3.77-5.28 [facility] Internal Medicine; [facility] Work Phone: Comment on above: PATIENT NOT FASTINGP ERFORMED BY: GONZALO LabCoroslyn PelaezGgvseu68[address] [facility] [place] [id number] Information: [id number] WBC (Bld) [#/Vol] 5.2 10*3/uL Normal 3.4-10.[address] [facility] Internal [facility]; [facility] Work Phone: Comment on above: PATIENT NOT FASTINGP ERFORMED BY: GONZALO Pelaez[address] [facility] [id number] Information: [id number] MAGNESIUM (05560)Ordered By: Pressure Dispatcher on 11-09-2013 Magnesium [Mass/Vol] 2.0 mg/dL Normal 1.6-2.6 [facility] [[email or web address]] Internal Medicine; [facility] Work Phone: Comment on above: PATIENT NOT FASTINGP ERFORMED BY: GONZALO LabCoroslyn VillagomezHyvsqp3[address] [facility] [id number] METABOLIC PANEL, COMPREHENSI VE (83144)Ordered By: Pressure Dispatcher on 11-09-2013 Albumin [Mass/Vol] 4.5 g/dL Normal 3.6-4.[address] [facility] Internal [facility]; [facility] Work Phone: Comment on above: PATIENT NOT FASTINGP ERFORMED BY: GONZALO [facility] Yvzyzq5495 [address] [facility] [place] [id number] Albumin/Globulin [Mass ratio] 1.6 {ratio} Normal 1.1-2.5 [facility]; [facility] Work Phone: Comment on above: PATIENT NOT FASTINGP ERFORMED BY: CB [facility] Vfnazn5452 [address] RoadDublin [place] [id number] ALP [Catalytic activity/Vol] 51 U/L Normal 39-117 [facility]; [facility] Work Phone: Comment on above: PATIENT NOT FASTINGP ERFORMED BY: GONZALO Pelaez6[address] RoadDublin [place] [id number] ALT [Catalytic activity/Vol] 12 U/L Normal 0-32 [facility]; [facility] Work Phone: Comment on above: PATIENT NOT FASTINGP ERFORMED BY: GONZALO Villagomezlin6370 [address] RoadDublin [place] [id number] AST [Catalytic activity/Vol] 20 U/L Normal 0-40 [facility]; [facility] Work Phone: Comment on above: PATIENT NOT FASTINGP ERFORMED BY: GONZALO Pelaez[address] RoadDublin [place] [id number] Bilirubin [Mass/Vol] 0.4 mg/dL Normal 0.0-1.2 Comp rehensive Internal Medicine; [facility] Work Phone: Comment on above: PATIENT NOT FASTINGP ERFORMED BY: Marisabel Hhzvrd5[address] RoadDublin [place] [id number] Calcium [Mass/Vol] 10.3 mg/dL Abnormal 8.6-10.[address] [facility] Internal Medicine; [facility] Work Phone: Comment on above: PATIENT NOT FASTINGP ERFORMED BY: LabAlbert Gqkxct3801 [address] RoadDublin [place] [id number] Chloride [Moles/Vol] 92 mmol/L Abnormal 97-108 Comp rehensive Internal [facility]; [facility] Work Phone: Comment on above: PATIENT NOT FASTINGP ERFORMED BY: GONZALO LabAlbert Cemqhs4[address] RoadDublin [place] [id number] CO2 [Moles/Vol] 28 mmol/L Normal 18-29 [facility] Internal Medicine; [facility] Work Phone: Comment on above: PATIENT NOT FASTINGP ERFORMED BY: GONZALO [facility] Hzqxlk8341 [address] RoadDublin [place] [id number] Creatinine [Mass/Vol] 0.78 mg/dL Normal 0.57-1.00 [facility]; [facility] Work Phone: Comment on above: PATIENT NOT FASTINGP ERFORMED BY: CB [facility] Swrpzz3476 [address] RoadDublin [place] [id number] GFR/1.73 sq M.predicted among blacks CKD-EPI (S/P/Bld) [Vol rate/Area] 92 mL/min/1.73 Normal [facility]; [facility] Work Phone: Comment on above: PATIENT NOT FASTINGP ERFORMED BY: CB [facility] Sjgzmk8[address] RoadDublin [place] [id number] GFR/1.73 sq M.predicted among non-blacks CKD-EPI (S/P/Bld) [Vol rate/Area] 79 mL/min/1.73 Normal [facility]; [facility] Work Phone: Comment on above: PATIENT NOT FASTINGP ERFORMED BY: CB [facility] Gsgosr[address] [facility] [place] [id number] Globulin (S) [Mass/Vol] 2.8 g/dL Normal 1.5-4.5 [facility]; [facility] Work Phone: Comment on above: PATIENT NOT FASTINGP ERFORMED BY: CB [facility] Nsroji[address] [facility] [place] [id number] Glucose [Mass/Vol] 94 mg/dL Normal 65-[address] [facility] Internal [facility]; [facility] Work Phone: Comment on above: PATIENT NOT FASTINGP ERFORMED BY: CB [facility] Ugbwke[address] [facility] [place] [id number] Potassium [Moles/Vol] 4.5 mmol/L Normal 3.5-5.2 [facility]; [facility] Work Phone: Comment on above: PATIENT NOT FASTINGP ERFORMED BY: CB [facility] Ksysbt[address] [facility] [place] [id number] Protein [Mass/Vol] 7.3 g/dL Normal 6.0-8.5 [facility]; [facility] Work Phone: Comment on above: PATIENT NOT FASTINGP ERFORMED BY: GONZALO [facility] Ysvfli5[address] RoadDublin [place] [id number] Sodium [Moles/Vol] 136 mmol/L Normal 134-144 [facility]; [facility] Work Phone: Comment on above: PATIENT NOT FASTINGP ERFORMED BY: CB [facility] Oijzct5[address] RoadDublin [place] [id number] Urea nitrogen [Mass/Vol] 12 mg/dL Normal 8-27 [facility]; [facility] Work Phone: Comment on above: PATIENT NOT FASTINGP ERFORMED BY: CB [facility] Apmhgq4[address] RoadDublin [place] [id number] Urea nitrogen/Creatinine [Mass ratio] 15 mg/mg Normal 11-26 [facility]; [facility] Work Phone: Comment on above: PATIENT NOT FASTINGP ERFORMED BY: CB [facility] Cuvngl7[address] RoadDublin [place] [id number] TSH ([id number])Ordered By: Opal Perez on 11-09-2013 TSH Qn 1.050 {uIU/mL} Normal 0.450-4.500 [facility]; [facility] Work Phone: Comment on above: PATIENT NOT FASTINGP ERFORMED BY: CB [facility] Biwjxr7867 [address] RoadDuin [place] [id number] Urinalysis, Office ([id number])Or dered By: Joaquina Lewis on 06-27-2013 Bilirubin Ql (U) Negative Normal Comprehe ive Internal Medicine; [facility] Work Phone: Glucose Test strip (U) [Mass/Vol] Negative Normal [facility]; [facility] Work Phone: Hemoglobin Ql (U) Non Hemolyzed Trace Normal [facility]; [facility] Work Phone: Ketones Ql (U) Negative Normal Comprehens jeremiah [facility]; [facility] Work Phone: Leukocyte esterase Test strip Ql (U) Negative Normal [facility]; [facility] Work Phone: Nitrite Ql (U) Negative Normal Comprehens jeremiah [facility]; [facility] Work Phone: pH (U) 6 [pH] Abnormal [facility]; [facility] Work Phone: Protein Ql (U) Negative Normal Comprehens jeremiah [facility]; [facility] Work Phone: Specific gravity (U) [Rel density] 1.015 1 Normal [facility]; [facility] Work Phone: Urobilinogen (24H U) [Mass/Time] Normal Normal [facility]; [facility] Work Phone: Thin prep Pap ([id number])Ordered By: Pressure Dispatcher on 05-09-2013 Microscopic observation Other stain Nom (Unsp spec) . Normal [facility]; [facility] Work Phone: Comment on above: Source.............C ervical;EndocervicalNo. of containers..01 CYTYC Thin Prep VialPATIENT NOT FASTINGPERFORMED BY: [employer] [id number] Information: [id number] Pathology report final diagnosis Narrative SPRCS Normal [facility]; [facility] Work Phone: Comment on above: NEGATIVE FOR INTRAEP ITHELIAL LESION AND MALIGNANCY.CELLULAR CHANGES ASSOCIATED WITH ATROPHY ARE PRESENT.Satisfactory for evaluation. Endocervical component may not bedistinguished in cases of atrophy.V76.2 ; Screening for malignant neoplasm of the cervixTerlinda High Pairer Inspector (ASCP) Source.............C ervical;EndocervicalNo. of containers..01 CYTYC Thin Prep VialPATIENT NOT FASTINGPERFORMED BY: [employer] [place], [place] [address]Applied BioCodeOrem Community Hospital [id number] Information: [id number] Thin prep Pap ([id number]) PAPSMR Normal [facility]; [facility] Work Phone: Comment on above: The Pap smear is a s creening test designed to aid in the detection ofpremalignant and malignant conditions of the uterine cervix. It is not adiagnostic procedure and should not be used as the sole means of detectingcervical cancer. Both false-positive and false-negative reports do occur. .This liquid based ThinPrep(R) pap test was screened with theuse of an image guided system.The HPV DNA reflex criteria were not met with this specimen resulttherefore, no HPV testing was performed. . Source.............C ervical;EndocervicalNo. of containers..01 CYTYC Thin Prep VialPATIENT NOT FASTINGPERFORMED BY: [employer] [id number] Information: [id number] CBC WITH MANUAL DIFF ([id number]) Ordered By: Pressure Dispatcher on 07-21-2012 Basophils (Bld) [#/Vol] 0.0 10*3/uL Normal 0.0-0.2 [facility]; [facility] Work Phone: Comment on above: PATIENT NOT FASTINGP ERFORMED BY: Zep SolarMountain View Regional Medical CenterMaszip4856 [facility] [id number] Information: SRC: URINE Basophils/100 WBC (Bld) 1 % Normal 0-3 [facility]; [facility] Work Phone: Comment on above: PATIENT NOT FASTINGP ERFORMED BY: [employer] Klarqt7016 [facility] [id number] Information: SRC: URINE Eosinophils (Bld) [#/Vol] 0.4 10*3/uL Normal 0.0-0.4 [facility]; [facility] Work Phone: Comment on above: PATIENT NOT FASTINGP ERFORMED BY: [employer] Xhjate9060 [facility] [id number] Information: SRC: URINE Eosinophils/100 WBC (Bld) 8 % Abnormal 0-7 [facility]; [facility] Work Phone: Comment on above: PATIENT NOT FASTINGP ERFORMED BY: GONZALO Villagomezlin6370 [facility] [id number] Information: SRC: URINE Erythrocyte distribution width (RBC) [Ratio] 12.7 % Normal 12.3-15.4 [facility]; [facility] Work Phone: Comment on above: PATIENT NOT FASTINGP ERFORMED BY: GONZALO Villagomez[address] [id number] Information: SRC: URINE Hematocrit (Bld) [Volume fraction] 41.0 % Normal 34.0-46.6 [facility]; [facility] Work Phone: Comment on above: PATIENT NOT FASTINGP ERFORMED BY: GONZALO Villagomezlin6370 [facility] [id number] Information: SRC: URINE Hemoglobin (Bld) [Mass/Vol] 13.6 g/dL Normal 11.1-15.9 [facility]; [facility] Work Phone: Comment on above: PATIENT NOT FASTINGP ERFORMED BY: GONZALO Petit Ntyerg3548 [facility] [id number] Information: SRC: URINE Immature granulocytes (Bld) [#/Vol] 0.0 10*3/uL Normal 0.0-0.1 [facility]; [facility] Work Phone: Comment on above: PATIENT NOT FASTINGP ERFORMED BY: GONZALO Petit Rzblbc8039 [facility] [id number] Information: SRC: URINE Immature granulocytes/100 WBC (Bld) 0 % Normal 0-2 [facility]; [facility] Work Phone: Comment on above: PATIENT NOT FASTINGP ERFORMED BY: GONZALO Villagomezlin6370 [facility] [id number] Information: SRC: URINE Lymphocytes (Bld) [#/Vol] 1.5 10*3/uL Normal 0.7-4.5 [facility]; [facility] Work Phone: Comment on above: PATIENT NOT FASTINGP ERFORMED BY: GONZALO Yanez [facility] [id number] Information: SRC: URINE Lymphocytes/100 WBC (Bld) 27 % Normal 14-46 [facility]; [facility] Work Phone: Comment on above: PATIENT NOT FASTINGP ERFORMED BY: GONZALO Grimes70 [facility] [id number] Information: SRC: URINE MCH (RBC) [Entitic mass] 30.0 pg Normal 26.6-33.0 [facility]; [facility] Work Phone: Comment on above: PATIENT NOT FASTINGP ERFORMED BY: GONZALO Villagomezlin6370 [facility] [id number] Information: SRC: URINE MCHC (RBC) [Mass/Vol] 33.2 g/dL Normal 31.5-35.7 [facility]; [facility] Work Phone: Comment on above: PATIENT NOT FASTINGP ERFORMED BY: GONZALO Villagomezlin6370 [facility] [id number] Information: SRC: URINE MCV (RBC) [Entitic vol] 91 fL Normal 79-97 [facility]; [facility] Work Phone: Comment on above: PATIENT NOT FASTINGP ERFORMED BY: GONZALO Villagomezlin6370 [facility] [id number] Information: SRC: URINE Monocytes (Bld) [#/Vol] 0.5 10*3/uL Normal 0.1-1.0 [facility]; [facility] Work Phone: Comment on above: PATIENT NOT FASTINGP ERFORMED BY: GONZALO Villagomezlin6370 [facility] [id number] Information: SRC: URINE Monocytes/100 WBC (Bld) 10 % Normal 4-13 [facility]; [facility] Work Phone: Comment on above: PATIENT NOT FASTINGP ERFORMED BY: CB Love Villagomezlin6370 [facility] [id number] Information: SRC: URINE Neutrophils (Bld) [#/Vol] 3.1 10*3/uL Normal 1.8-7.8 [facility]; [facility] Work Phone: Comment on above: PATIENT NOT FASTINGP ERFORMED BY: GONZALO Villagomezlin6370 [facility] [id number] Information: SRC: URINE Neutrophils/100 WBC (Bld) 54 % Normal 40-74 [facility]; [facility] Medicine Work Phone: Comment on above: PATIENT NOT FASTINGP ERFORMED BY: GONZALO Villagomezlin6370 [facility] [id number] Information: SRC: URINE Platelets (Bld) [#/Vol] 345 10*3/uL Normal 140-415 [facility]; [facility] Work Phone: Comment on above: PATIENT NOT FASTINGP ERFORMED BY: GONZALO Villagomezlin6370 [facility] [id number] Information: SRC: URINE RBC (Bld) [#/Vol] 4.53 10*6/uL Normal 3.77-5.28 [facility]; [facility] Work Phone: Comment on above: PATIENT NOT FASTINGP ERFORMED BY: GONZALO Villagomezlin6370 [facility] [id number] Information: SRC: URINE WBC (Bld) [#/Vol] 5.6 10*3/uL Normal 4.0-10.[address] [facility]; [facility] Work Phone: Comment on above: PATIENT NOT FASTINGP ERFORMED BY: GONZALO Villagomezlin6370 [facility] [id number] Information: SRC: URINE METABOLIC PANEL, COMPREHENSI VE (98809)Ordered By: Pressure Dispatcher on 07-21-2012 Albumin [Mass/Vol] 4.6 g/dL Normal 3.6-4.[address] [facility]; [facility] Work Phone: Comment on above: PATIENT NOT FASTINGP ERFORMED BY: GONZALO [facility] Ksxeuw2557 [address]Dublin [place] [id number] Albumin/Globulin [Mass ratio] 1.6 {ratio} Normal 1.1-2.5 [facility]; [facility] Work Phone: Comment on above: PATIENT NOT FASTINGP ERFORMED BY: CB [facility] Xlgepe0874 [address] RoadDublin [place] [id number] ALP [Catalytic activity/Vol] 72 U/L Normal 25-165 [facility]; [facility] Work Phone: Comment on above: PATIENT NOT FASTINGP ERFORMED BY: CB [facility] Owwcby1225 [address] RoadDublin [place] [id number] ALT [Catalytic activity/Vol] 17 U/L Normal 0-32 [facility]; [facility] Work Phone: Comment on above: PATIENT NOT FASTINGP ERFORMED BY: CB [facility] Cbxxug9362 [address] RoadDublin [place] [id number] AST [Catalytic activity/Vol] 22 U/L Normal 0-40 [facility]; [facility] Work Phone: Comment on above: PATIENT NOT FASTINGP ERFORMED BY: GONZALO [facility] Dduqdh8811 [address] RoadDublin [place] [id number] Bilirubin [Mass/Vol] 0.4 mg/dL Normal 0.0-1.2 Comp rehensive [facility]; [facility] Work Phone: Comment on above: PATIENT NOT FASTINGP ERFORMED BY: CB [facility] Dcfcux1884 [address] RoadDublin [place] [id number] Calcium [Mass/Vol] 9.6 mg/dL Normal 8.6-10.[address] [facility]; [facility] Work Phone: Comment on above: PATIENT NOT FASTINGP ERFORMED BY: CB [facility] Fllpkp6471 [address] RoadDublin [place] [id number] Chloride [Moles/Vol] 94 mmol/L Abnormal 97-108 Comp re[facility]; [facility] Work Phone: Comment on above: PATIENT NOT FASTINGP ERFORMED BY: CB [facility] Mnzunc2999 [address] RoadDublin [place] [id number] CO2 [Moles/Vol] 26 mmol/L Normal 20-32 [facility]; [facility] Work Phone: Comment on above: PATIENT NOT FASTINGP ERFORMED BY: CB [facility] Vqzwxj5066 [address] RoadDublin [place] [id number] Creatinine [Mass/Vol] 0.65 mg/dL Normal 0.57-1.00 [facility]; [facility] Work Phone: Comment on above: PATIENT NOT FASTINGP ERFORMED BY: CB [facility] Psmzww6752 [address] RoadDublin [place] [id number] GFR/1.73 sq M.predicted among blacks CKD-EPI (S/P/Bld) [Vol rate/Area] 108 mL/min/1.73 Normal [facility]; [facility] Work Phone: Comment on above: PATIENT NOT FASTINGP ERFORMED BY: CB [facility] Tjjmgg2133 [address] RoadDublin [place] [id number] GFR/1.73 sq M.predicted among non-blacks CKD-EPI (S/P/Bld) [Vol rate/Area] 93 mL/min/1.73 Normal [facility]; [facility] Work Phone: Comment on above: PATIENT NOT FASTINGP ERFORMED BY: CB [facility] Htroxx0573 [address] RoadDublin [place] [id number] Globulin (S) [Mass/Vol] 2.8 g/dL Normal 1.5-4.5 [facility]; [facility] Work Phone: Comment on above: PATIENT NOT FASTINGP ERFORMED BY: CB [facility] Utdxhg3080 [address] RoadDublin [place] [id number] Glucose [Mass/Vol] 103 mg/dL Abnormal 65-[address] [facility]; [facility] Work Phone: Comment on above: PATIENT NOT FASTINGP ERFORMED BY: CB [facility] Upsxzz4345 [address] RoadDublin [place] [id number] Potassium [Moles/Vol] 4.1 mmol/L Normal 3.5-5.2 [facility]; [facility] Work Phone: Comment on above: PATIENT NOT FASTINGP ERFORMED BY: GONZALO Pelaez6370 [address]Dublin [place] [id number] Protein [Mass/Vol] 7.4 g/dL Normal 6.0-8.[address] [facility]; [facility] Work Phone: Comment on above: PATIENT NOT FASTINGP ERFORMED BY: GONZALO [facility] VillagomezXytsnn1757 [address] RoadDublin [place] [id number] Sodium [Moles/Vol] 136 mmol/L Normal 134-[address] [facility]; [facility] Work Phone: Comment on above: PATIENT NOT FASTINGP ERFORMED BY: GONZALO Marisabel Dhpgmn8790 [address] RoadDublin [place] [id number] Urea nitrogen [Mass/Vol] 14 mg/dL Normal 8-27 [facility]; [facility] Work Phone: Comment on above: PATIENT NOT FASTINGP ERFORMED BY: GONZALO Love Villagomezlin6370 [address]Dublin [place] [id number] Urea nitrogen/Creatinine [Mass ratio] 22 mg/mg Normal 11-26 [facility]; [facility] Work Phone: Comment on above: PATIENT NOT FASTINGP ERFORMED BY: GONZALO [facility] Pqsjea0264 [address] RoadDublin [place] [id number] PARATHORMONE ([id number])Ordered By: Pressure Dispatcher on 07-21-2012 Parathyrin.intact [Mass/Vol] 23 pg/mL Normal 15-65 [facility]; [facility] Work Phone: Comment on above: PATIENT NOT FASTINGP ERFORMED BY: GONZALO Lab[facility] VillagomezEgzkvg9494 [address] RoadDublin [place] [id number] PHOSPHORUS ([id number])Ordered By : Pressure Dispatcher on 07-21-2012 Phosphate [Mass/Vol] 4.3 mg/dL Normal 2.5-4.5 [facility]; [facility] Work Phone: Comment on above: PATIENT NOT FASTINGP ERFORMED BY: CB [facility] Ccfkbm4417 [address]Dublin [place] [id number] TSH ([id number])Ordered By: Opal cooney Mechanical Handyman on 07-21-2012 TSH Qn 1.370 {uIU/mL} Normal 0.450-4.500 [facility]; [facility] Work Phone: Comment on above: PATIENT NOT FASTINGP ERFORMED BY: CB [facility] Xnlebw3453 [address] RoadDublin [place] [id number] Vitamin D Hydroxy (80670)Ord ered By: Pressure Dispatcher on 07-21-2012 25-hydroxyvitamin D [Mass/Vol] 37.6 ng/mL Normal 30.0-100.0 [facility]; [facility] Work Phone: Comment on above: Vitamin D deficiency has been defined by the [place] [facility] and an Endocrine Society practice guideline as alevel of serum 25-OH vitamin D less than 20 ng/mL (1,2).The Endocrine Society went on to further define vitamin Dinsufficiency as a level between 21 and 29 ng/mL (2).1. IOM ([place] of Medicine). 2010. Dietary reference intakes for calcium and D. [place]: The National Academies Press.2. Leland MF, Gerry KAPOOR, Esme ARRIAGA, et al. Evaluation, treatment, and prevention of vitamin D deficiency: an Endocrine Society clinical practice guideline. JCEM. 2010; 96(7):1911-30. PATIENT NOT FASTINGP ERFORMED BY: CB [facility] Vcgjqm0817 [address] RoadDublin [place] [id number] Ferritin ([id number])Ordered By: Pressure Dispatcher on 02-25-2012 Ferritin [Mass/Vol] 39 ng/mL Normal 13-150 Compr ehensive [facility]; [facility] Work Phone: Comment on above: PATIENT NOT FASTINGP ERFORMED BY: CB [facility] Kgcdtj9593 [address] RoadDublin [place] [id number] Folic Acid Serum ([id number])Orde red By: Pressure Dispatcher on 02-25-2012 Folate [Mass/Vol] 12.6 ng/mL Normal Compreh ensive [facility]; [facility] Work Phone: Comment on above: A serum folate ekta ntration of less than 3.1 ng/mL isconsidered to represent clinical deficiency. PATIENT NOT FASTINGP ERFORMED BY: CB [facility] Dywfdg6968 [address] RoadDublin [place] [id number] Iron Binding Capacity (TIBC) (30493)Ordered By: Pressure Dispatcher on 02-25-2012 Iron [Mass/Vol] 95 ug/dL Normal 35-155 Comprehen sive [facility]; [facility] Work Phone: Comment on above: PATIENT NOT FASTINGP ERFORMED BY: CB [facility] Cdaecf7625 [address] RoadDublin [place] [id number] Information: [id number] Iron binding capacity [Mass/Vol] 320 ug/dL Normal 250-450 Comprehensiv e [facility]; [facility] Work Phone: Comment on above: PATIENT NOT FASTINGP ERFORMED BY: CB [facility] Tjgkok2221 [address] RoadDublin [place] [id number] Information: [id number] Iron binding capacity.unsaturated [Mass/Vol] 225 ug/dL Normal 150-375 [facility]; [facility] Work Phone: Comment on above: PATIENT NOT FASTINGP ERFORMED BY: CB [facility] Aygruj4809 [address] RoadDublin [place] [id number] Information: [id number] Iron saturation [Mass fraction] 30 % Normal 15-55 [facility]; [facility] Work Phone: Comment on above: PATIENT NOT FASTINGP ERFORMED BY: CB [facility] Kavjhw9613 [address] RoadDublin [place] [id number] Information: [id number] Vitamin B-12 (cyanocobalamin ) (82939)Ordered By: Pressure Dispatcher on 02-25-2012 Cobalamin (Vitamin B12) [Mass/Vol] 572 pg/mL Normal 211-946 [facility]; [facility] Work Phone: Comment on above: PATIENT NOT FASTINGP ERFORMED BY: [facility] Ducokh1677 [facility] [id number] Urinalysis, Office ([id number])on 09-10-2008 Bilirubin Ql (U) Negative Normal Comprehe nsive Internal Medicine; [facility] Work Phone: Glucose Test strip (U) [Mass/Vol] Negative Normal [facility]; [facility] Work Phone: Hemoglobin Ql (U) Non Hemolyzed Trace Normal [facility]; [facility] Work Phone: Ketones Ql (U) Negative Normal Comprehens jeremiah [facility]; [facility] Work Phone: Leukocyte esterase Test strip Ql (U) Negative Normal [facility]; [facility] Work Phone: Comment on above: aw Nitrite Ql (U) Negative Normal Comprehens jeremiah [facility]; [facility] Work Phone: pH (U) 7.5 [pH] Normal [facility]; [facility] Work Phone: Protein Ql (U) Negative Normal Comprehens jeremiah [facility]; [facility] Work Phone: Specific gravity (U) [Rel density] 1.005 1 Normal [facility]; [facility] Work Phone: Urobilinogen (24H U) [Mass/Time] Normal Normal [facility]; [facility] Work Phone: Culture, urine Bacteria identified Cx Nom (U) Enterococcus faecalis [facility] Work Phone: Gram stain for investigation of transfusion reaction Microscopic observation Gram stain Nom (Unsp spec) [facility] Work Phone: No Panel Information Nasopharyngeal Culture [facility] Work Phone: Vital Signs Date Time Vital Sign Value Performing Clinician Facility 10-17-2024 13:23-0400 Body height 165.[address] Aicha Blackwood DO Work Phone: [facility] 10-17-2024 13:23-0400 Body mass index (BMI) [Ratio] 22.8 kg/m2 Dr. Aicha Blackwood DO Work Phone: [facility] 10-17-2024 13:23-0400 Body temperature 98.3 [degF] Dr. Aicha Blackwood DO Work Phone: [facility] 10-17-2024 13:23-0400 Body weight 62.[address] Aicha Blackwood DO Work Phone: [facility] 10-17-2024 13:23-0400 Diastolic blood pressure 80 mm[Hg] Dr. Aicha Blackwood DO Work Phone: [facility] 10-17-2024 13:23-0400 Heart rate 70 /min Dr. Aicha Blackwood DO Work Phone: [facility] 10-17-2024 13:23-0400 Systolic blood pressure 122 mm[Hg] Dr. Aicha Blackwood DO Work Phone: [facility] 06-06-2024 15:18-0400 Body height 165.[address] Aicha Blackwood DO Work Phone: [facility] 05-29-2024 11:37-0400 Body height 165.[address] Aicha Blackwood DO Work Phone: [facility] 05-29-2024 11:37-0400 Body weight 64.[address] Aicha Blackwood DO Work Phone: [facility] 03-15-2024 13:13-0500 Body height 165.[address] Aicha Blackwood DO Work Phone: [facility] 03-15-2024 13:13-0500 Body mass index (BMI) [Ratio] 24 kg/m2 Dr. Aicha Blackwood DO Work Phone: [facility] 03-15-2024 13:13-0500 Body weight 65.[address] Aicha Blackwood DO Work Phone: [facility] 03-15-2024 13:13-0500 Diastolic blood pressure 78 mm[Hg] Dr. Aicha Fast DO Work Phone: [facility] 03-15-2024 13:13-0500 Heart rate 74 /min Dr. Holcomb Fast DO Work Phone: [facility] 03-15-2024 13:13-0500 Respiratory rate 18 /min Dr. Holcomb Fast DO Work Phone: [facility] 03-15-2024 13:13-0500 SaO2% (BldA) [Mass fraction] 97 % Dr. Holcomb Fast DO Work Phone: [facility] 03-15-2024 13:13-0500 Systolic blood pressure 120 mm[Hg] Dr. Aicha Blackwood DO Work Phone: [facility] 01-05-2023 08:30-0400 Body height 165.1 cm Joaquina Lewis [facility]; [facility] Work Phone: 01-05-2023 08:30-0400 Body mass index (BMI) [Ratio] 24.46 kg/m2 Joaquina Lewis [facility]; [facility] Work Phone: 01-05-2023 08:30-0400 Body surface area Derived from formula 1.74 m2 Joaquina Lewis [facility]; [facility] Work Phone: 01-05-2023 08:30-0400 Body temperature 97.2 [degF] Joaquina Lewis [facility]; [facility] Work Phone: Comment on above: Method: Thermal Scan 01-05-2023 08:30-0400 Body weight 66.68 kg Joaquina Lewis [facility]; [facility] Work Phone: 01-05-2023 08:30-0400 Diastolic blood pressure 72 mm[Hg] Joaquina Lewis [facility]; [facility] Work Phone: Comment on above: Patient Position: Sitting; Cuff Location : Left Arm; Cuff Size: Standard 01-05-2023 08:30-0400 Heart rate 74 /min Joaquina Lewis [facility]; [facility] Work Phone: Comment on above: Pattern: Regular 01-05-2023 08:30-0400 Respiratory rate 16 /min Joaquina Lewis [facility]; [facility] Work Phone: Comment on above: Pattern: Unlabored 01-05-2023 08:30-0400 SaO2% (BldA) [Mass fraction] 99 % Joaquina Lewis [facility]; [facility] Work Phone: Comment on above: Room air 01-05-2023 08:30-0400 Systolic blood pressure 118 mm[Hg] Joaquina Lewis [facility]; [facility] Work Phone: Comment on above: Patient Position: Sitting; Cuff Location : Left Arm; Cuff Size: Standard 12-24-2022 08:40-0400 Body height 165.1 cm Joaquina Lewis [facility]; [facility] Work Phone: 12-24-2022 08:40-0400 Body mass index (BMI) [Ratio] 24.46 kg/m2 Joaquina Lewis [facility]; [facility] Work Phone: 12-24-2022 08:40-0400 Body surface area Derived from formula 1.74 m2 Joaquina Lewis [facility]; [facility] Work Phone: 12-24-2022 08:40-0400 Body temperature 96.9 [degF] Joaqiuna Lewis [facility]; [facility] Work Phone: Comment on above: Method: Thermal Scan 12-24-2022 08:40-0400 Body weight 66.68 kg Joaquina Lewis [facility]; [facility] Work Phone: 12-24-2022 08:40-0400 Diastolic blood pressure 72 mm[Hg] Joaquina Lewis [facility]; [facility] Work Phone: Comment on above: Patient Position: Sitting; Cuff Location : Left Arm; Cuff Size: Standard 10-20-2023 08:40-0400 Heart rate 82 /min [facility]aquina [facility]; [facility] Work Phone: Comment on above: Pattern: Regular 12-24-2022 08:40-0400 Respiratory rate 16 /min Joaquina [facility]; [facility] Work Phone: Comment on above: Pattern: Unlabored 12-24-2022 08:40-0400 SaO2% (BldA) [Mass fraction] 99 % Joaquina [facility]; [facility] Work Phone: Comment on above: Room air 12-24-2022 08:40-0400 Systolic blood pressure 118 mm[Hg] [facility]aquina [facility]; [facility] Work Phone: Comment on above: Patient Position: Sitting; Cuff Location : Left Arm; Cuff Size: Standard 11-24-2022 14:41-0400 Body temperature 97.5 [degF] Dr. Edwardo Petit Work Phone: [facility] 11-24-2022 14:41-0400 Diastolic blood pressure 51 mm[Hg] Dr. Edwardo Petit Work Phone: [facility] 11-24-2022 14:41-0400 Heart rate 72 /min Dr. Edwardo Petit Work Phone: [facility] 11-24-2022 14:41-0400 Respiratory rate 16 /min Dr. Edwardo Petit Work Phone: [facility] 11-24-2022 14:41-0400 SaO2% (BldA) [Mass fraction] 96 % Dr. Edwardo Petit Work Phone: [facility] 11-24-2022 14:41-0400 Systolic blood pressure 109 mm[Hg] Dr. Edwardo Petit Work Phone: [facility] 11-24-2022 14:05-0400 Body height 165.[address] Edwardo Petit Work Phone: [facility] 11-20-2021 11:45-0400 Body temperature 97.3 [degF] Dr. Edwardo Petit Work Phone: [facility] Work Phone: 11-20-2021 11:45-0400 Diastolic blood pressure 59 mm[Hg] Dr. Edwardo Petit Work Phone: [facility] Work Phone: 11-20-2021 11:45-0400 Heart rate 61 /min Dr. Edwardo Petit Work Phone: [facility] Work Phone: 11-20-2021 11:45-0400 Respiratory rate 16 /min Dr. Edwardo Petit Work Phone: [facility] Work Phone: 11-20-2021 11:45-0400 SaO2% (BldA) [Mass fraction] 98 % Dr. Edwardo Petit Work Phone: [facility] Work Phone: 11-20-2021 11:45-0400 Systolic blood pressure 118 mm[Hg] Dr. Edwardo Petit Work Phone: [facility] Work Phone: 11-20-2021 10:57-0400 Body height 165.[address] Edwardo Petit Work Phone: [facility] Work Phone: 11-20-2021 10:57-0400 Body mass index (BMI) [Ratio] 22.9 kg/m2 Dr. Edwardo Petit Work Phone: [facility] Work Phone: 11-20-2021 10:57-0400 Body weight 62.[address] Ewdardo Petit Work Phone: [facility] Work Phone: 02-14-2015 11:18-0500 Body height 165.1 cm Tiffanie Bhagat [facility]; [facility] Work Phone: 02-14-2015 11:18-0500 Body mass index (BMI) [Ratio] 22.46 kg/m2 Tiffanie Malavebreeisabella [facility]; [facility] Work Phone: 02-14-2015 11:18-0500 Body surface area Derived from formula 1.67 m2 Tiffanie Malavecherrie [place] [facility]; [facility] Work Phone: 02-14-2015 11:18-0500 Body temperature 98.4 [degF] Tiffanie Malavecherrie [facility]; [facility] Work Phone: Comment on above: Method: Temporal 02-14-2015 11:18-0500 Body weight 61.24 kg Tiffanie Malavebreeisabella [facility]; [facility] Work Phone: 02-14-2015 11:18-0500 Diastolic blood pressure 70 mm[Hg] Tiffanie Leola [facility]; [facility] Work Phone: Comment on above: Patient Position: Sitting; Cuff Location : Left Arm; Cuff Size: Standard 02-14-2015 11:18-0500 Heart rate 84 /min Tiffanie Malavecherrie [facility]; [facility] Work Phone: Comment on above: Pattern: Regular 02-14-2015 11:18-0500 Respiratory rate 16 /min Tiffanie Malavecherrie [facility]; [facility] Work Phone: Comment on above: Pattern: Unlabored 02-14-2015 11:18-0500 SaO2% (BldA) [Mass fraction] 16 % Tiffanie Malavecherrie [facility]; [facility] Work Phone: Comment on above: Room air 02-14-2015 11:18-0500 Systolic blood pressure 110 mm[Hg] Tiffanie Leola [facility]; [facility] Work Phone: Comment on above: Patient Position: Sitting; Cuff Location : Left Arm; Cuff Size: Standard 12-25-2014 09:08-0400 Body height 165.1 cm Tiffanie [place] [facility]; [facility] Work Phone: 12-25-2014 09:08-0400 Body mass index (BMI) [Ratio] 22.46 kg/m2 Tiffanie Malavecherrie [place] [facility]; [facility] Work Phone: 12-25-2014 09:08-0400 Body surface area Derived from formula 1.67 m2 Tiffanie Malavecherrie [place] [facility]; [facility] Work Phone: 12-25-2014 09:08-0400 Body temperature 98.5 [degF] Tiffanie Malavecherrie [facility]; [facility] Work Phone: Comment on above: Method: Temporal 12-25-2014 09:08-0400 Body weight 61.24 kg Tiffanie Malavecherrie [place] [facility]; [facility] Work Phone: 12-25-2014 09:08-0400 Diastolic blood pressure 72 mm[Hg] Tiffanie [place] [facility]; [facility] Work Phone: Comment on above: Patient Position: Sitting; Cuff Location : Left Arm; Cuff Size: Standard 12-25-2014 09:08-0400 Heart rate 72 /min Tiffanie Leola [facility]; [facility] Work Phone: Comment on above: Pattern: Regular 12-25-2014 09:08-0400 Respiratory rate 16 /min Tiffanie Malavecherrie [facility]; [facility] Work Phone: Comment on above: Pattern: Unlabored 12-25-2014 09:08-0400 SaO2% (BldA) [Mass fraction] 97 % Tiffanie Leola [facility]; [facility] Work Phone: Comment on above: Room air 12-25-2014 09:08-0400 Systolic blood pressure 100 mm[Hg] Tiffanie Leola [facility]; [facility] Work Phone: Comment on above: Patient Position: Sitting; Cuff Location : Left Arm; Cuff Size: Standard 12-18-2014 10:08-0400 Body height 165.1 cm Tiffanie [place] [facility]; [facility] Work Phone: 12-18-2014 10:08-0400 Body mass index (BMI) [Ratio] 22.46 kg/m2 Tiffanie Malavebreeisabella [facility]; [facility] Work Phone: 12-18-2014 10:08-0400 Body surface area Derived from formula 1.67 m2 Tiffanie Malavecherrie [place] [facility]; [facility] Work Phone: 12-18-2014 10:08-0400 Body temperature 98.6 [degF] Tiffanie Malavecherrie [facility]; [facility] Work Phone: Comment on above: Method: Temporal 12-18-2014 10:08-0400 Body weight 61.24 kg Tiffanie Malavecherrie [facility]; [facility] Work Phone: 12-18-2014 10:08-0400 Diastolic blood pressure 64 mm[Hg] Tiffanie Leola [facility]; [facility] Work Phone: Comment on above: Patient Position: Sitting; Cuff Location : Left Arm; Cuff Size: Standard 12-18-2014 10:08-0400 Heart rate 80 /min Tiffanie Malavecherrie [facility]; [facility] Work Phone: Comment on above: Pattern: Regular 12-18-2014 10:08-0400 Respiratory rate 16 /min Tiffanie Malavecherrie [facility]; [facility] Work Phone: Comment on above: Pattern: Unlabored 12-18-2014 10:08-0400 SaO2% (BldA) [Mass fraction] 97 % Tiffanie Malavecherrie [facility]; [facility] Work Phone: Comment on above: Room air 12-18-2014 10:08-0400 Systolic blood pressure 100 mm[Hg] Tiffanie Malavecherrie [facility]; [facility] Work Phone: Comment on above: Patient Position: Sitting; Cuff Location : Left Arm; Cuff Size: Standard 11-20-2014 14:39-0400 Body height 165.1 cm Adrianna Roberts LPN [facility]; [facility] Work Phone: 11-20-2014 14:39-0400 Body mass index (BMI) [Ratio] 23.3 kg/m2 Adrianna Slarb [employer]BING GUIDE [facility]; [facility] Work Phone: 11-20-2014 14:39-0400 Body surface area Derived from formula 1.7 m2 Adrianna Slarb [employer]IDE [facility]; [facility] Work Phone: 11-20-2014 14:39-0400 Body temperature 97.5 [degF] Adrianna Slarb [employer]IDE [facility]; [facility] Work Phone: 11-20-2014 14:39-0400 Body weight 63.5 kg Adrianna Genesisrb [employer]IDE [facility]; [facility] Work Phone: 11-20-2014 14:39-0400 Diastolic blood pressure 74 mm[Hg] Adrianna Slarb [employer] GUIDE [facility]; [facility] Work Phone: Comment on above: Patient Position: Sitting; Cuff Location : Left Arm; Cuff Size: Standard 11-20-2014 14:39-0400 Heart rate 79 /min Adrianna Slarb [employer] GUIDE [facility]; [facility] Work Phone: Comment on above: Pattern: Regular 11-20-2014 14:39-0400 Respiratory rate 16 /min Adrianna Genesisrb [employer] GUIDE [facility]; [facility] Work Phone: Comment on above: Pattern: Unlabored 11-20-2014 14:39-0400 SaO2% (BldA) [Mass fraction] 95 % Adrianna Slarb [employer] GUIDE [facility]; [facility] Work Phone: Comment on above: Room air 11-20-2014 14:39-0400 Systolic blood pressure 122 mm[Hg] Adrianna Slarb [employer]IMB[employer] GUIDE [facility]; [facility] Work Phone: Comment on above: Patient Position: Sitting; Cuff Location : Left Arm; Cuff Size: Standard 11-04-2014 08:51-0400 Body height 165.1 cm Lizzy Timmons [facility]; [facility] Work Phone: 11-04-2014 08:51-0400 Body mass index (BMI) [Ratio] 23.3 kg/m2 [facility]; [facility] Work Phone: 11-04-2014 08:51-0400 Body surface area Derived from formula 1.7 m2 [facility]; [facility] Work Phone: 11-04-2014 08:51-0400 Body temperature 97.9 [degF] [facility]; [facility] Work Phone: 11-04-2014 08:51-0400 Body weight 63.5 kg [facility]; [facility] Work Phone: 11-04-2014 08:51-0400 Diastolic blood pressure 72 mm[Hg] [facility]; [facility] Work Phone: Comment on above: Patient Position: Sitting; Cuff Location : Left Arm; Cuff Size: Standard 11-04-2014 08:51-0400 Heart rate 58 /min [facility]; [facility] Work Phone: Comment on above: Pattern: Regular 11-04-2014 08:51-0400 SaO2% (BldA) [Mass fraction] 98 % [facility]; [facility] Work Phone: Comment on above: Room air 11-04-2014 08:51-0400 Systolic blood pressure 118 mm[Hg] [facility]; [facility] Work Phone: Comment on above: Patient Position: Sitting; Cuff Location : Left Arm; Cuff Size: Standard 11-01-2014 09:54-0400 Body height 165.1 cm Adrianna Slarb [employer] GUIDE [facility]; [facility] Work Phone: 11-01-2014 09:54-0400 Body mass index (BMI) [Ratio] 23.46 kg/m2 Adrianna Slarb [employer] GUIDE [facility]; [facility] Work Phone: 11-01-2014 09:54-0400 Body surface area Derived from formula 1.71 m2 Adrianna Slarb [employer]IMB[employer] GUIDE [facility]; [facility] Work Phone: 11-01-2014 09:54-0400 Body temperature 98.1 [degF] Adrianna Roberts CLIMBING GUIDE [facility]; [facility] Work Phone: 11-01-2014 09:54-0400 Body weight 63.96 kg Adrianna Roberts LPN [facility]; [facility] Work Phone: 11-01-2014 09:54-0400 Diastolic blood pressure 62 mm[Hg] Adrianna Roberts [employer]IMB[employer] GUIDE [facility]; [facility] Work Phone: Comment on above: Patient Position: Sitting; Cuff Location : Left Arm; Cuff Size: Standard 11-01-2014 09:54-0400 Heart rate 80 /min Adrianna Roberts LPN [facility]; [facility] Work Phone: Comment on above: Pattern: Regular 11-01-2014 09:54-0400 Respiratory rate 16 /min Adrianna Roberts LPN [facility]; [facility] Work Phone: Comment on above: Pattern: Unlabored 11-01-2014 09:54-0400 SaO2% (BldA) [Mass fraction] 98 % Adrianna Roberts [employer]IMBING GUIDE [facility]; [facility] Work Phone: Comment on above: Room air 11-01-2014 09:54-0400 Systolic blood pressure 98 mm[Hg] Adrianna Roberts CLIMBING GUIDE [facility]; [facility] Work Phone: Comment on above: Patient Position: Sitting; Cuff Location : Left Arm; Cuff Size: Standard 09-04-2014 11:58-0400 Body height 165.1 cm Tiffanie Bhagat [facility]; [facility] Work Phone: 09-04-2014 11:58-0400 Body mass index (BMI) [Ratio] 23.46 kg/m2 Tiffanie Bhagat [facility]; [facility] Work Phone: 09-04-2014 11:58-0400 Body surface area Derived from formula 1.71 m2 Tiffanie Leola [place] [facility]; [facility] Work Phone: 09-04-2014 11:58-0400 Body temperature 98 [degF] Tiffanie Malavebreeisabella [facility]; [facility] Work Phone: Comment on above: Method: Temporal 09-04-2014 11:58-0400 Body weight 63.96 kg Tiffanie Leola [place] [facility]; [facility] Work Phone: 09-04-2014 11:58-0400 Diastolic blood pressure 74 mm[Hg] Tiffanie Leola [place] [facility]; [facility] Work Phone: Comment on above: Patient Position: Sitting; Cuff Location : Left Arm; Cuff Size: Standard 09-04-2014 11:58-0400 Heart rate 72 /min Tiffanie Leola [facility]; [facility] Work Phone: Comment on above: Pattern: Regular 09-04-2014 11:58-0400 Respiratory rate 16 /min Tiffanie Leola [facility]; [facility] Work Phone: Comment on above: Pattern: Unlabored 09-04-2014 11:58-0400 Systolic blood pressure 102 mm[Hg] Tiffanie Malavecherrie [facility]; [facility] Work Phone: Comment on above: Patient Position: Sitting; Cuff Location : Left Arm; Cuff Size: Standard 07-31-2014 09:27-0400 Body height 165.1 cm Tiffanie Leola [place] [facility]; [facility] Work Phone: 07-31-2014 09:27-0400 Body mass index (BMI) [Ratio] 23.13 kg/m2 Tiffanie [place] [facility]; [facility] Work Phone: 07-31-2014 09:27-0400 Body surface area Derived from formula 1.69 m2 Tiffanie Bhagat [facility]; [facility] Work Phone: 07-31-2014 09:27-0400 Body temperature 98.1 [degF] Tiffanie Bhagat [facility]; [facility] Work Phone: Comment on above: Method: Oral 07-31-2014 09:270400 Body weight 63.05 kg Tiffanie Malavecherrie [place] [facility]; [facility] Work Phone: 07-31-2014 09:27-0400 Diastolic blood pressure 64 mm[Hg] Tiffanie Malavecherrie [facility]; [facility] Work Phone: Comment on above: Patient Position: Sitting; Cuff Location : Left Arm; Cuff Size: Standard 07-31-2014 09:27-0400 Heart rate 68 /min Tiffanie Malavecherrie [facility]; [facility] Work Phone: Comment on above: Pattern: Regular 07-31-2014 09:27-0400 Respiratory rate 16 /min Tiffanie Malavecherrie [facility]; [facility] Work Phone: Comment on above: Pattern: Unlabored 07-31-2014 09:27-0400 Systolic blood pressure 90 mm[Hg] Tiffanie Leola [facility]; [facility] Work Phone: Comment on above: Patient Position: Sitting; Cuff Location : Left Arm; Cuff Size: Standard 06-28-2014 10:17-0400 Body height 165.1 cm Tiffanie Leola [place] [facility]; [facility] Work Phone: 06-28-2014 10:17-0400 Body mass index (BMI) [Ratio] 22.8 kg/m2 Tiffanie [place] [facility]; [facility] Work Phone: 06-28-2014 10:17-0400 Body surface area Derived from formula 1.68 m2 Tiffanie Leola [facility]; [facility] Work Phone: 06-28-2014 10:17-0400 Body temperature 97.7 [degF] Tiffanie Leola [facility]; [facility] Work Phone: Comment on above: Method: Oral 06-28-2014 10:170400 Body weight 62.14 kg Tiffanie Leola [place] [facility]; [facility] Work Phone: 06-28-2014 10:17-0400 Diastolic blood pressure 60 mm[Hg] Tiffanie Leola [facility]; [facility] Work Phone: Comment on above: Patient Position: Sitting; Cuff Location : Left Arm; Cuff Size: Standard 06-28-2014 10:17-0400 Heart rate 96 /min Tiffanie Leola [facility]; [facility] Work Phone: Comment on above: Pattern: Regular 06-28-2014 10:17-0400 Respiratory rate 16 /min Tiffanie Leola [facility]; [facility] Work Phone: Comment on above: Pattern: Unlabored 06-28-2014 10:17-0400 Systolic blood pressure 96 mm[Hg] Tiffanie Leola [facility]; [facility] Work Phone: Comment on above: Patient Position: Sitting; Cuff Location : Left Arm; Cuff Size: Standard 05-17-2014 11:27-0400 Body height 165.1 cm Tiffanie Bhagat [facility]; [facility] Work Phone: 05-17-2014 11:27-0400 Body mass index (BMI) [Ratio] 22.8 kg/m2 Tiffanie Leola [facility]; [facility] Work Phone: 05-17-2014 11:27-0400 Body surface area Derived from formula 1.68 m2 Tiffanie Bhagat [facility]; [facility] Work Phone: 05-17-2014 11:27-0400 Body temperature 97.3 [degF] Tiffanie Bhagat [facility]; [facility] Work Phone: 05-17-2014 11:27-0400 Body weight 62.14 kg Tiffanie Leola [facility]; [facility] Work Phone: 05-17-2014 11:27-0400 Diastolic blood pressure 56 mm[Hg] Tiffanie Bhagat [facility]; [facility] Work Phone: Comment on above: Patient Position: Sitting; Cuff Location : Left Arm; Cuff Size: Standard 05-17-2014 11:27-0400 Heart rate 78 /min Tiffanie Bhagat [facility]; [facility] Work Phone: Comment on above: Pattern: Regular 05-17-2014 11:27-0400 Respiratory rate 16 /min Tiffanie Bhagat [facility]; [facility] Work Phone: Comment on above: Pattern: Unlabored 05-17-2014 11:27-0400 Systolic blood pressure 100 mm[Hg] Tiffanie Bhagat [facility]; [facility] Work Phone: Comment on above: Patient Position: Sitting; Cuff Location : Left Arm; Cuff Size: Standard 01-22-2014 08:17-0500 Body height 165.1 cm Terraanni Cazares [facility]; [facility] Work Phone: 01-22-2014 08:17-0500 Body mass index (BMI) [Ratio] 22.8 kg/m2 Terraanni Cazares [facility]; [facility] Work Phone: 01-22-2014 08:17-0500 Body surface area Derived from formula 1.68 m2 Terraanni Cazares [facility]; [facility] Work Phone: 01-22-2014 08:17-0500 Body temperature 96.5 [degF] Terra Cazares [facility]; [facility] Work Phone: Comment on above: Method: Oral 01-22-2014 08:17-0500 Body weight 62.14 kg Terraanni Rhodesy [facility]; [facility] Work Phone: 01-22-2014 08:17-0500 Diastolic blood pressure 64 mm[Hg] Terraanni Cazares [facility]; [facility] Work Phone: Comment on above: Patient Position: Sitting; Cuff Location : Left Arm; Cuff Size: Standard 01-22-2014 08:17-0500 Heart rate 98 /min Terraanni Rhodesy [facility]; [facility] Work Phone: Comment on above: Pattern: Regular 01-22-2014 08:17-0500 Respiratory rate 18 /min Terramonet Cazares [place] [facility]; [facility] Work Phone: Comment on above: Pattern: Unlabored 01-22-2014 08:17-0500 SaO2% (BldA) [Mass fraction] 97 % Terraanni Cazares [facility]; [facility] Work Phone: Comment on above: Room air 01-22-2014 08:17-0500 Systolic blood pressure 102 mm[Hg] Terra Cazares [facility]; [facility] Work Phone: Comment on above: Patient Position: Sitting; Cuff Location : Left Arm; Cuff Size: Standard 11-09-2013 10:09-0400 Body height 165.1 cm Tiffanie [place] [facility]; [facility] Work Phone: 11-09-2013 10:09-0400 Body mass index (BMI) [Ratio] 23.3 kg/m2 Tiffanie [place] [facility]; [facility] Work Phone: 11-09-2013 10:09-0400 Body surface area Derived from formula 1.7 m2 Tiffanie Bhagat [facility]; [facility] Work Phone: 11-09-2013 10:09-0400 Body temperature 97.9 [degF] Tiffanie Bhagat [facility]; [facility] Work Phone: 11-09-2013 10:09-0400 Body weight 63.5 kg Tiffanie [place] [facility]; [facility] Work Phone: 11-09-2013 10:09-0400 Diastolic blood pressure 72 mm[Hg] Tiffanie Bhagat [facility]; [facility] Work Phone: Comment on above: Patient Position: Sitting; Cuff Location : Left Arm; Cuff Size: Standard 11-09-2013 10:09-0400 Heart rate 78 /min Tiffanie Bhagat [facility]; [facility] Work Phone: Comment on above: Pattern: Regular 11-09-2013 10:09-0400 Respiratory rate 16 /min Tiffanie Bhagat [facility]; [facility] Work Phone: Comment on above: Pattern: Unlabored 11-09-2013 10:09-0400 Systolic blood pressure 122 mm[Hg] Tiffanie Leola [facility]; [facility] Work Phone: Comment on above: Patient Position: Sitting; Cuff Location : Left Arm; Cuff Size: Standard 10-03-2013 09:08-0400 Body height 165.1 cm Tiffanie Leola [place] [facility]; [facility] Work Phone: 10-03-2013 09:08-0400 Body mass index (BMI) [Ratio] 22.96 kg/m2 Tiffanie Leola [facility]; [facility] Work Phone: 10-03-2013 09:08-0400 Body surface area Derived from formula 1.69 m2 Tiffanie Bhagat [facility]; [facility] Work Phone: 10-03-2013 09:08-0400 Body temperature 97.9 [degF] Tiffanie Leola [facility]; [facility] Work Phone: 10-03-2013 09:08-0400 Body weight 62.6 kg Tiffanie Leola [facility]; [facility] Work Phone: 10-03-2013 09:08-0400 Diastolic blood pressure 68 mm[Hg] Tiffanie Leola [facility]; [facility] Work Phone: Comment on above: Patient Position: Sitting; Cuff Location : Left Arm; Cuff Size: Standard 10-03-2013 09:08-0400 Heart rate 70 /min Tiffanie Bhagat [facility]; [facility] Work Phone: Comment on above: Pattern: Regular 10-03-2013 09:08-0400 Respiratory rate 16 /min Tiffanie Bhagat [facility]; [facility] Work Phone: Comment on above: Pattern: Unlabored 10-03-2013 09:08-0400 Systolic blood pressure 104 mm[Hg] Tiffanie Bhagat [facility]; [facility] Work Phone: Comment on above: Patient Position: Sitting; Cuff Location : Left Arm; Cuff Size: Standard 07-19-2013 10:37-0400 Body height 165.1 cm Laya Spears RN [facility]; [facility] Work Phone: 07-19-2013 10:37-0400 Body mass index (BMI) [Ratio] 22.96 kg/m2 Laya Spears RN [facility]; [facility] Work Phone: 07-19-2013 10:37-0400 Body surface area Derived from formula 1.69 m2 Laya Spears RN [facility]; [facility] Work Phone: 07-19-2013 10:37-0400 Body temperature 97.8 [degF] Laya Spears RN [facility]; [facility] Work Phone: Comment on above: Method: Temporal 07-19-2013 10:37-0400 Body weight 62.6 kg Laya Spears RN [facility]; [facility] Work Phone: 07-19-2013 10:37-0400 Diastolic blood pressure 72 mm[Hg] Laya Spears RN [facility]; [facility] Work Phone: Comment on above: Patient Position: Sitting; Cuff Location : Left Arm; Cuff Size: Standard 07-19-2013 10:37-0400 Heart rate 76 /min Laya Spears RN [facility]; [facility] Work Phone: Comment on above: Pattern: Regular 07-19-2013 10:37-0400 Respiratory rate 16 /min Laya Spears RN [facility]; [facility] Work Phone: Comment on above: Pattern: Unlabored 07-19-2013 10:37-0400 SaO2% (BldA) [Mass fraction] 96 % Laya Spears RN [facility]; [facility] Work Phone: Comment on above: Room air 07-19-2013 10:37-0400 Systolic blood pressure 124 mm[Hg] Laya Spears RN [facility]; [facility] Work Phone: Comment on above: Patient Position: Sitting; Cuff Location : Left Arm; Cuff Size: Standard 07-17-2013 15:01-0400 Body height 165.1 cm Haven Cheung NARCISA [facility]; [facility] Work Phone: 07-17-2013 15:01-0400 Body mass index (BMI) [Ratio] 22.96 kg/m2 Haven Cheung NARCISA [facility]; [facility] Work Phone: 07-17-2013 15:-0400 Body surface area Derived from formula 1.69 m2 Haven Cheung NARCISA [facility]; [facility] Work Phone: 07-17-2013 15:-040 Body temperature 98.5 [degF] Haven Cheung NARCISA [facility]; [facility] Work Phone: Comment on above: Method: Oral 07-17-2013 15:040 Body weight 62.6 kg Haven Cheung NARCISA [facility]; [facility] Work Phone: 07-17-2013 15:-0400 Diastolic blood pressure 68 mm[Hg] Haven Cheung NARCISA [facility]; [facility] Work Phone: Comment on above: Patient Position: Sitting; Cuff Location : Left Arm; Cuff Size: Standard 07-17-2013 15:01-0400 Heart rate 76 /min Haven Cheung NARCISA [facility]; [facility] Work Phone: Comment on above: Pattern: Regular 07-17-2013 15:01-0400 Respiratory rate 18 /min Haven Cheung NARCISA [facility]; [facility] Work Phone: 07-17-2013 15:01-0400 SaO2% (BldA) [Mass fraction] 97 % Haven Wittjeff BREWSTER [facility]; [facility] Work Phone: Comment on above: Room air 07-17-2013 15:01-0400 Systolic blood pressure 110 mm[Hg] Haven Jonatan BREWSTER [facility]; [facility] Work Phone: Comment on above: Patient Position: Sitting; Cuff Location : Left Arm; Cuff Size: Standard 06-27-2013 14:20-0400 Body height 165.1 cm Haven Cheung NARCISA [facility]; [facility] Work Phone: 06-27-2013 14:20-0400 Body mass index (BMI) [Ratio] 22.96 kg/m2 Haven Cheung NARCISA [facility]; [facility] Work Phone: 06-27-2013 14:20-0400 Body surface area Derived from formula 1.69 m2 Haven Cheung NARCISA [facility]; [facility] Work Phone: 06-27-2013 14:20-0400 Body temperature 98.2 [degF] Haven Cheung NARCISA [facility]; [facility] Work Phone: Comment on above: Method: Oral 06-27-2013 14:200400 Body weight 62.6 kg Haven Cheung NARCISA [facility]; [facility] Work Phone: 06-27-2013 14:20-0400 Diastolic blood pressure 70 mm[Hg] Haven Cheung NARCISA [facility]; [facility] Work Phone: Comment on above: Patient Position: Sitting; Cuff Location : Left Arm; Cuff Size: Standard 06-27-2013 14:20-0400 Heart rate 72 /min Haven Cheung NARCISA [facility]; [facility] Work Phone: Comment on above: Pattern: Regular 06-27-2013 14:20-0400 SaO2% (BldA) [Mass fraction] 99 % Haven Cheung NARCISA [facility]; [facility] Work Phone: Comment on above: Room air 06-27-2013 14:20-0400 Systolic blood pressure 110 mm[Hg] Haven Cheung NARCISA [facility]; [facility] Work Phone: Comment on above: Patient Position: Sitting; Cuff Location : Left Arm; Cuff Size: Standard 05-09-2013 09:41-0500 Body height 165.1 cm Tiffanie Malavecherrie [place] [facility]; [facility] Work Phone: 05-09-2013 09:41-0500 Body mass index (BMI) [Ratio] 22.96 kg/m2 Tiffanie Malavecherrie [facility]; [facility] Medicine Work Phone: 05-09-2013 09:41-0500 Body surface area Derived from formula 1.69 m2 Tiffanie Leola [facility]; [facility] Work Phone: 05-09-2013 09:41-0500 Body temperature 98.4 [degF] Tiffanie Leola [facility]; [facility] Work Phone: 05-09-2013 09:41-0500 Body weight 62.6 kg Tiffanie Malavecherrie [facility]; [facility] Work Phone: 05-09-2013 09:41-0500 Diastolic blood pressure 74 mm[Hg] Tiffanie Leola [facility]; [facility] Work Phone: Comment on above: Patient Position: Sitting; Cuff Location : Left Arm; Cuff Size: Standard 05-09-2013 09:41-0500 Heart rate 72 /min Tiffanie Leola [facility]; [facility] Work Phone: Comment on above: Pattern: Regular 05-09-2013 09:41-0500 Respiratory rate 16 /min Tiffanie Leola [facility]; [facility] Work Phone: Comment on above: Pattern: Unlabored 05-09-2013 09:41-0500 Systolic blood pressure 100 mm[Hg] Tiffanie Malavecherrie [facility]; [facility] Work Phone: Comment on above: Patient Position: Sitting; Cuff Location : Left Arm; Cuff Size: Standard 02-06-2013 08:33-0500 Body height 165.1 cm Tiffanie Leola [facility]; [facility] Work Phone: 02-06-2013 08:33-0500 Body mass index (BMI) [Ratio] 22.96 kg/m2 Tiffanie Bhagat [facility]; [facility] Work Phone: 02-06-2013 08:33-0500 Body surface area Derived from formula 1.69 m2 Tiffanie Leola [facility]; [facility] Work Phone: 02-06-2013 08:33-0500 Body temperature 97.8 [degF] Tiffanie Malavecherrie [facility]; [facility] Work Phone: 02-06-2013 08:33-0500 Body weight 62.6 kg Tiffanie Malavecherrie [facility]; [facility] Work Phone: 02-06-2013 08:33-0500 Diastolic blood pressure 60 mm[Hg] Tiffanie Malavecherrie [facility]; [facility] Work Phone: Comment on above: Patient Position: Sitting; Cuff Location : Left Arm; Cuff Size: Standard 02-06-2013 08:33-0500 Heart rate 72 /min Tiffanie Malavecherrie [facility]; [facility] Work Phone: Comment on above: Pattern: Regular 02-06-2013 08:33-0500 Respiratory rate 16 /min Tiffanie Malavecherrie [facility]; [facility] Work Phone: Comment on above: Pattern: Unlabored 02-06-2013 08:33-0500 Systolic blood pressure 92 mm[Hg] Tiffanie Malavecherrie [facility]; [facility] Work Phone: Comment on above: Patient Position: Sitting; Cuff Location : Left Arm; Cuff Size: Standard 01-02-2013 13:58-0400 Body height 165.1 cm Piper Cisneros RN [facility]; [facility] Work Phone: 01-02-2013 13:58-0400 Body mass index (BMI) [Ratio] 22.96 kg/m2 Piper Cisneros RN [facility]; [facility] Work Phone: 01-02-2013 13:58-0400 Body surface area Derived from formula 1.69 m2 Piper Cisneros RN [facility]; [facility] Work Phone: 01-02-2013 13:58-0400 Body weight 62.6 kg Piepr Cisneros RN [facility]; [facility] Work Phone: 01-02-2013 13:58-0400 Diastolic blood pressure 60 mm[Hg] Piper Cisneros RN [facility]; [facility] Work Phone: Comment on above: Patient Position: Sitting; Cuff Location : Left Arm; Cuff Size: Large 01-02-2013 13:58-0400 Heart rate 86 /min Piper Cisneros RN [facility]; [facility] Work Phone: Comment on above: Pattern: Regular 01-02-2013 13:58-0400 Respiratory rate 18 /min Piper Cisneros RN [facility]; [facility] Work Phone: Comment on above: Pattern: Unlabored 01-02-2013 13:58-0400 SaO2% (BldA) [Mass fraction] 98 % Piper Cisneros RN [facility]; [facility] Work Phone: Comment on above: Room air 01-02-2013 13:58-0400 Systolic blood pressure 124 mm[Hg] Piper Cisneros RN [facility]; [facility] Work Phone: Comment on above: Patient Position: Sitting; Cuff Location : Left Arm; Cuff Size: Large 12-22-2012 11:11-0400 Body height 165.1 cm [facility] [place] [facility]; [facility] Work Phone: 12-22-2012 11:11-0400 Body mass index (BMI) [Ratio] 22.96 kg/m2 [facility]; [facility] Work Phone: 12-22-2012 11:11-0400 Body surface area Derived from formula 1.69 m2 [facility]; [facility] Work Phone: 12-22-2012 11:11-0400 Body temperature 97.6 [degF] [facility]; [facility] Work Phone: 12-22-2012 11:11-0400 Body weight 62.6 kg T[facility]anie [facility]; [facility] Work Phone: 12-22-2012 11:11-0400 Diastolic blood pressure 62 mm[Hg] Tiffanie Leola [facility]; [facility] Work Phone: Comment on above: Patient Position: Sitting; Cuff Location : Left Arm; Cuff Size: Large 12-22-2012 11:11-0400 Heart rate 62 /min Tiffanie Leola [facility]; [facility] Work Phone: Comment on above: Pattern: Regular 12-22-2012 11:11-0400 Respiratory rate 16 /min Tiffanie Leola [facility]; [facility] Work Phone: Comment on above: Pattern: Unlabored 12-22-2012 11:11-0400 Systolic blood pressure 110 mm[Hg] Tiffanie Leola [facility]; [facility] Work Phone: Comment on above: Patient Position: Sitting; Cuff Location : Left Arm; Cuff Size: Large 11-02-2012 09:33-0400 Body height 165.1 cm Piper Cisneros RN [facility]; [facility] Work Phone: 11-02-2012 09:33-0400 Body mass index (BMI) [Ratio] 22.46 kg/m2 Piper Cisneros RN [facility]; [facility] Work Phone: 11-02-2012 09:33-0400 Body surface area Derived from formula 1.67 m2 Piper Cisneros RN [facility]; [facility] Work Phone: 11-02-2012 09:33-0400 Body temperature 98.2 [degF] Piper Cisneros RN [facility]; [facility] Work Phone: Comment on above: Method: Oral 11-02-2012 09:33-0400 Body weight 61.24 kg Piper Cisneros RN [facility]; [facility] Work Phone: 11-02-2012 09:33-0400 Diastolic blood pressure 62 mm[Hg] Piper Cisneros RN [facility]; [facility] Work Phone: Comment on above: Patient Position: Sitting; Cuff Location : Left Arm; Cuff Size: Large 11-02-2012 09:33-0400 Heart rate 64 /min Piper Cisneros RN [facility]; [facility] Work Phone: Comment on above: Pattern: Regular 11-02-2012 09:33-0400 Respiratory rate 20 /min Piper Cisneros RN [facility]; [facility] Work Phone: Comment on above: Pattern: Unlabored 11-02-2012 09:33-0400 Systolic blood pressure 122 mm[Hg] Piper Cisneros RN [facility]; [facility] Work Phone: Comment on above: Patient Position: Sitting; Cuff Location : Left Arm; Cuff Size: Large 08-21-2012 15:19-0400 Body height 165.1 cm [facility]; [facility] Work Phone: 08-21-2012 15:19-0400 Body mass index (BMI) [Ratio] 22.46 kg/m2 [facility]; [facility] Work Phone: 08-21-2012 15:19-0400 Body surface area Derived from formula 1.67 m2 Tiffanie Bhagat [facility]; [facility] Work Phone: 08-21-2012 15:19-0400 Body temperature 97.3 [degF] Tiffanie Bhagat [facility]; [facility] Work Phone: 08-21-2012 15:19-0400 Body weight 61.24 kg T[facility]; [facility] Work Phone: 08-21-2012 15:19-0400 Diastolic blood pressure 60 mm[Hg] [facility]; [facility] Work Phone: Comment on above: Patient Position: Sitting; Cuff Location : Left Arm; Cuff Size: Standard 08-21-2012 15:19-0400 Heart rate 64 /min Tiffanie Bhagat [facility]; [facility] Work Phone: Comment on above: Pattern: Regular 08-21-2012 15:19-0400 Respiratory rate 16 /min [facility] Work Phone: Comment on above: Pattern: Unlabored 08-21-2012 15:19-0400 Systolic blood pressure 120 mm[Hg] Tiffanie Malavecherrie [facility]; [facility] Work Phone: Comment on above: Patient Position: Sitting; Cuff Location : Left Arm; Cuff Size: Standard 08-02-2012 14:13-0400 Body height 165.1 cm Tiffanie Leola [facility]; [facility] Work Phone: 08-02-2012 14:13-0400 Body mass index (BMI) [Ratio] 22.46 kg/m2 Tiffanie Leola [facility]; [facility] Work Phone: 08-02-2012 14:13-0400 Body surface area Derived from formula 1.67 m2 Tiffanie Bhagat [facility]; [facility] Work Phone: 08-02-2012 14:13-0400 Body temperature 97.8 [degF] Tiffanie Leola [facility]; [facility] Work Phone: 08-02-2012 14:13-0400 Body weight 61.24 kg Tiffanie Malavecherrie [facility]; [facility] Work Phone: 08-02-2012 14:13-0400 Diastolic blood pressure 72 mm[Hg] Tiffanie Leola [facility]; [facility] Work Phone: Comment on above: Patient Position: Sitting; Cuff Location : Left Arm; Cuff Size: Standard 08-02-2012 14:130400 Heart rate 68 /min Tiffanie Leola [facility]; [facility] Work Phone: Comment on above: Pattern: Regular 08-02-2012 14:13-0400 Respiratory rate 16 /min Tiffanie Bhagat [facility]; [facility] Work Phone: Comment on above: Pattern: Unlabored 08-02-2012 14:13-0400 Systolic blood pressure 104 mm[Hg] Tiffanie Bhagat [facility]; [facility] Work Phone: Comment on above: Patient Position: Sitting; Cuff Location : Left Arm; Cuff Size: Standard 07-21-2012 12:05-0400 Body height 165.1 cm Tiffanie Leola [facility]; [facility] Work Phone: 07-21-2012 12:05-0400 Body mass index (BMI) [Ratio] 22.46 kg/m2 Tiffanie Leola [facility]; [facility] Work Phone: 07-21-2012 12:05-0400 Body surface area Derived from formula 1.67 m2 Tiffanie Leola [facility]; [facility] Work Phone: 07-21-2012 12:05-0400 Body temperature 97.6 [degF] Tiffanie Leola [facility]; [facility] Work Phone: 07-21-2012 12:05-0400 Body weight 61.24 kg Tiffanie Leola [facility]; [facility] Work Phone: 07-21-2012 12:05-0400 Diastolic blood pressure 64 mm[Hg] Tiffanie Leola [facility]; [facility] Work Phone: Comment on above: Patient Position: Sitting; Cuff Location : Left Arm; Cuff Size: Standard 07-21-2012 12:05-0400 Heart rate 68 /min Tiffanie Bhagat [facility]; [facility] Work Phone: Comment on above: Pattern: Regular 07-21-2012 12:05-0400 Respiratory rate 16 /min Tiffanie Leola [facility]; [facility] Work Phone: Comment on above: Pattern: Unlabored 07-21-2012 12:05-0400 Systolic blood pressure 104 mm[Hg] Tiffanie Bhagat [facility]; [facility] Work Phone: Comment on above: Patient Position: Sitting; Cuff Location : Left Arm; Cuff Size: Standard 03-28-2012 08:34-0500 Body height 165.1 cm Tiffanie Bhagat [facility]; [facility] Work Phone: 03-28-2012 08:34-0500 Body mass index (BMI) [Ratio] 21.97 kg/m2 Tiffanie Bhagat [facility]; [facility] Work Phone: 03-28-2012 08:34-0500 Body surface area Derived from formula 1.66 m2 Tiffanie Malavebreeisabella [facility]; [facility] Work Phone: 03-28-2012 08:34-0500 Body temperature 96.8 [degF] Tiffanie Bhagat [facility]; [facility] Work Phone: 03-28-2012 08:34-0500 Body weight 59.88 kg Tiffanie Malavebreeisabella [facility]; [facility] Work Phone: 03-28-2012 08:34-0500 Diastolic blood pressure 62 mm[Hg] Tiffanie Malavecherrie [facility]; [facility] Work Phone: Comment on above: Patient Position: Sitting; Cuff Location : Left Arm; Cuff Size: Large 03-28-2012 08:34-0500 Heart rate 72 /min Tiffanie Malavecherrie [facility]; [facility] Work Phone: Comment on above: Pattern: Regular 03-28-2012 08:34-0500 Respiratory rate 16 /min Tiffanie Bhagat [facility]; [facility] Work Phone: Comment on above: Pattern: Unlabored 03-28-2012 08:34-0500 Systolic blood pressure 98 mm[Hg] Tiffanie Mathurisabella [facility]; [facility] Work Phone: Comment on above: Patient Position: Sitting; Cuff Location : Left Arm; Cuff Size: Large 02-25-2012 13:42-0500 Body height 164.47 cm Terra Cazares [facility]; [facility] Work Phone: 02-25-2012 13:42-0500 Body mass index (BMI) [Ratio] 21.8 kg/m2 Terra Cazares [facility]; [facility] Work Phone: 02-25-2012 13:42-0500 Body surface area Derived from formula 1.64 m2 Terra Cazares [facility]; [facility] Work Phone: 02-25-2012 13:42-0500 Body temperature 97.8 [degF] Terra Cazares [facility]; [facility] Work Phone: Comment on above: Method: Tympanic 02-25-2012 13:42-0500 Body weight 58.97 kg Terra Cazares [facility]; [facility] Work Phone: 02-25-2012 13:42-0500 Diastolic blood pressure 72 mm[Hg] Terra Cazares [facility]; [facility] Work Phone: Comment on above: Patient Position: Sitting; Cuff Location : Left Arm; Cuff Size: Standard 02-25-2012 13:42-0500 Heart rate 64 /min Terra Cazares [facility]; [facility] Work Phone: Comment on above: Pattern: Regular 02-25-2012 13:42-0500 Respiratory rate 16 /min Terra Cazares [facility]; [facility] Work Phone: Comment on above: Pattern: Unlabored 02-25-2012 13:42-0500 Systolic blood pressure 116 mm[Hg] Terra Cazares [facility]; [facility] Work Phone: Comment on above: Patient Position: Sitting; Cuff Location : Left Arm; Cuff Size: Standard 02-18-2012 14:42-0500 Body height 164.47 cm Haven Cheung LPN [facility]; [facility] Work Phone: 02-18-2012 14:42-0500 Body mass index (BMI) [Ratio] 21.8 kg/m2 Haven Jonatan BREWSTER [facility]; [facility] Work Phone: 02-18-2012 14:42-0500 Body surface area Derived from formula 1.64 m2 Haven Jonatan BREWSTER [facility]; [facility] Work Phone: 02-18-2012 14:42-0500 Body temperature 98.4 [degF] Haven Cheung LPN [facility]; [facility] Work Phone: Comment on above: Method: Oral 02-18-2012 14:42-0500 Body weight 58.97 kg Haven Cheung LPN [facility]; [facility] Work Phone: 02-18-2012 14:42-0500 Diastolic blood pressure 70 mm[Hg] Haven Cheung LPN [facility]; [facility] Work Phone: Comment on above: Patient Position: Sitting; Cuff Location : Left Arm; Cuff Size: Standard 02-18-2012 14:42-0500 Heart rate 74 /min Haven Cheung LPN [facility]; [facility] Work Phone: Comment on above: Pattern: Regular 02-18-2012 14:42-0500 Respiratory rate 16 /min Haven Cheung LPN [facility]; [facility] Work Phone: 02-18-2012 14:42-0500 SaO2% (BldA) [Mass fraction] 98 % Haven Cheung LPN [facility]; [facility] Work Phone: Comment on above: Room air 02-18-2012 14:42-0500 Systolic blood pressure 112 mm[Hg] Haven Cheung LPN [facility]; [facility] Work Phone: Comment on above: Patient Position: Sitting; Cuff Location : Left Arm; Cuff Size: Standard 12-20-2011 13:08-0400 Body height 164.47 cm Haven Cheung LPN [facility]; [facility] Work Phone: 12-20-2011 13:08-0400 Body mass index (BMI) [Ratio] 21.8 kg/m2 Haven Cheung LPN [facility]; [facility] Work Phone: 12-20-2011 13:08-0400 Body surface area Derived from formula 1.64 m2 Haven Cheung LPN [facility]; [facility] Work Phone: 12-20-2011 13:08-0400 Body temperature 98.4 [degF] Haven Cheung LPN [facility]; [facility] Work Phone: Comment on above: Method: Oral 12-20-2011 13:08-0400 Body weight 58.97 kg Haven Cheung LPN [facility]; [facility] Work Phone: 12-20-2011 13:08-0400 Diastolic blood pressure 68 mm[Hg] Haven Cheung LPN [facility]; [facility] Work Phone: Comment on above: Patient Position: Sitting; Cuff Location : Left Arm; Cuff Size: Standard 12-20-2011 13:08-0400 Heart rate 78 /min Haven Cheung LPN [facility]; [facility] Work Phone: Comment on above: Pattern: Regular 12-20-2011 13:08-0400 Respiratory rate 18 /min Haven Cheung LPN [facility]; [facility] Work Phone: 12-20-2011 13:08-0400 Systolic blood pressure 120 mm[Hg] Haven Cheung LPN [facility]; [facility] Work Phone: Comment on above: Patient Position: Sitting; Cuff Location : Left Arm; Cuff Size: Standard 12-13-2011 08:42-0400 Body height 164.47 cm Haven Cheung LPN [facility]; [facility] Work Phone: 12-13-2011 08:42-0400 Body mass index (BMI) [Ratio] 21.8 kg/m2 Haven Cheung LPN [facility]; [facility] Work Phone: 12-13-2011 08:42-0400 Body surface area Derived from formula 1.64 m2 Haven Cheung LPN [facility]; [facility] Work Phone: 12-13-2011 08:42-0400 Body temperature 98.2 [degF] Haven Cheung LPN [facility]; [facility] Work Phone: Comment on above: Method: Oral 12-13-2011 08:42-0400 Body weight 58.97 kg Haven Cheung LPN [facility]; [facility] Work Phone: 12-13-2011 08:42-0400 Diastolic blood pressure 70 mm[Hg] Haven Cheung LPN [facility]; [facility] Work Phone: Comment on above: Patient Position: Sitting; Cuff Location : Left Arm; Cuff Size: Standard 12-13-2011 08:42-0400 Heart rate 78 /min Haven Cheung LPN [facility]; [facility] Work Phone: Comment on above: Pattern: Regular 12-13-2011 08:42-0400 Respiratory rate 16 /min Haven Cheung LPN [facility]; [facility] Work Phone: Comment on above: Pattern: Unlabored 12-13-2011 08:42-0400 Systolic blood pressure 110 mm[Hg] Haven Cheung NARCISA [facility]; [facility] Work Phone: Comment on above: Patient Position: Sitting; Cuff Location : Left Arm; Cuff Size: Standard 11-22-2011 11:08-0400 Body height 164.47 cm Haven Cheung CLIMBING GUIDE [facility]; [facility] Work Phone: 11-22-2011 11:08-0400 Body mass index (BMI) [Ratio] 21.8 kg/m2 Haven Cheung CLIMBING GUIDE [facility]; [facility] Work Phone: 11-22-2011 11:08-0400 Body surface area Derived from formula 1.64 m2 Haven Cheung NARCISA [facility]; [facility] Work Phone: 11-22-2011 11:08-0400 Body temperature 98.7 [degF] Haven Cheung CLIMBING GUIDE [facility]; [facility] Work Phone: Comment on above: Method: Oral 11-22-2011 11:08-0400 Body weight 58.97 kg Haven Cheung NARCISA [facility]; [facility] Work Phone: 11-22-2011 11:08-0400 Diastolic blood pressure 70 mm[Hg] Haven Cheung LPN [facility]; [facility] Work Phone: Comment on above: Patient Position: Sitting; Cuff Location : Left Arm; Cuff Size: Standard 11-22-2011 11:08-0400 Heart rate 78 /min Haven Cheung LPN [facility]; [facility] Work Phone: Comment on above: Pattern: Regular 11-22-2011 11:08-0400 Respiratory rate 17 /min Haven Cheung LPN [facility]; [facility] Work Phone: Comment on above: Pattern: Unlabored 11-22-2011 11:08-0400 Systolic blood pressure 116 mm[Hg] Haven Cheung LPN [facility]; [facility] Work Phone: Comment on above: Patient Position: Sitting; Cuff Location : Left Arm; Cuff Size: Standard 09-20-2011 15:53-0400 Body height 164.47 cm Tiffanie Bhagat [facility]; [facility] Work Phone: 09-20-2011 15:53-0400 Body mass index (BMI) [Ratio] 21.8 kg/m2 Tiffanie Bhagat [facility]; [facility] Work Phone: 09-20-2011 15:53-0400 Body surface area Derived from formula 1.64 m2 Tiffanie Bhagat [facility]; [facility] Work Phone: 09-20-2011 15:53-0400 Body temperature 97.8 [degF] Tiffanie Bhagat [facility]; [facility] Work Phone: 09-20-2011 15:53-0400 Body weight 58.97 kg Tiffanie Bhagat [facility]; [facility] Work Phone: 09-20-2011 15:53-0400 Diastolic blood pressure 66 mm[Hg] Tiffanie Bhagat [facility]; [facility] Work Phone: Comment on above: Patient Position: Sitting; Cuff Location : Left Arm; Cuff Size: Standard 09-20-2011 15:53-0400 Heart rate 72 /min Tiffanie Bhagat [facility]; [facility] Work Phone: Comment on above: Pattern: Regular 09-20-2011 15:53-0400 Respiratory rate 16 /min Tiffanie Bhagat [facility] Medicine; [facility] Work Phone: Comment on above: Pattern: Unlabored 09-20-2011 15:53-0400 Systolic blood pressure 110 mm[Hg] Tiffanie Bhagat [facility]; [facility] Work Phone: Comment on above: Patient Position: Sitting; Cuff Location : Left Arm; Cuff Size: Standard 08-11-2011 08:10-0400 Body height 165.1 cm Haven Cheung NARCISA [facility]; [facility] Work Phone: 08-11-2011 08:10-0400 Body mass index (BMI) [Ratio] 22.46 kg/m2 Haven Jonatan BREWSTER [facility]; [facility] Work Phone: 08-11-2011 08:10-0400 Body surface area Derived from formula 1.67 m2 Haven Cheung NARCISA [facility]; [facility] Work Phone: 08-11-2011 08:10-0400 Body temperature 99.3 [degF] Haven Cheung NARCISA [facility]; [facility] Work Phone: Comment on above: Method: Oral 08-11-2011 08:10-0400 Body weight 61.24 kg Haven Cheugn NARCISA [facility]; [facility] Work Phone: 08-11-2011 08:10-0400 Diastolic blood pressure 68 mm[Hg] Haven Cheung NARCISA [facility]; [facility] Work Phone: Comment on above: Patient Position: Sitting; Cuff Location : Left Arm; Cuff Size: Standard 08-11-2011 08:10-0400 Heart rate 70 /min Haven Wittjeff BREWSTER [facility]; [facility] Work Phone: Comment on above: Pattern: Regular 08-11-2011 08:10-0400 Respiratory rate 16 /min Haven Cheung LPN [facility]; [facility] Work Phone: 08-11-2011 08:10-0400 Systolic blood pressure 110 mm[Hg] Haven Cheung LPN [facility]; [facility] Work Phone: Comment on above: Patient Position: Sitting; Cuff Location : Left Arm; Cuff Size: Standard 07-21-2011 [id number] Body height 165.1 cm Haven Cheung LPN [facility]; [facility] Work Phone: 07-21-2011 09:11-0400 Body mass index (BMI) [Ratio] 22.46 kg/m2 Haven Cheung [employer]IMBING GUIDE [facility]; [facility] Work Phone: 07-21-2011 09:11-0400 Body surface area Derived from formula 1.67 m2 Haven Cheung NARCISA [facility]; [facility] Work Phone: 07-21-2011 [id number] Body temperature 97.2 [degF] Haven Cheung LPN [facility]; [facility] Work Phone: Comment on above: Method: Oral 07-21-2011 [id number] Body weight 61.24 kg Haven Cheung LPN [facility]; [facility] Work Phone: 07-21-2011 09:11-0400 Diastolic blood pressure 68 mm[Hg] Haven Cheung [employer]IDE [facility]; [facility] Work Phone: Comment on above: Patient Position: Sitting; Cuff Location : Left Arm; Cuff Size: Standard 07-21-2011 09:11-0400 Heart rate 78 /min Haven Cheung [employer] [facility]; [facility] Work Phone: Comment on above: Pattern: Regular 07-21-2011 09:11-0400 Respiratory rate 16 /min Haven Cehung NARCISA [facility]; [facility] Work Phone: Comment on above: Pattern: Unlabored 07-21-2011 09:11-0400 Systolic blood pressure 108 mm[Hg] Haven Cheung LPN [facility]; [facility] Work Phone: Comment on above: Patient Position: Sitting; Cuff Location : Left Arm; Cuff Size: Standard 07-05-2011 14:15-0400 Body height 165.1 cm Ammy Harvey RN [facility]; [facility] Work Phone: 07-05-2011 14:15-0400 Body mass index (BMI) [Ratio] 22.46 kg/m2 Ammy Harvey RN [facility]; [facility] Work Phone: 07-05-2011 14:15-0400 Body surface area Derived from formula 1.67 m2 Ammy Harvey RN [facility]; [facility] Work Phone: 07-05-2011 14:15-0400 Body temperature 97.8 [degF] Ammy Harvey RN [facility]; [facility] Work Phone: Comment on above: Method: Oral 07-05-2011 14:15-0400 Body weight 61.24 kg Ammy Harvey RN [facility]; [facility] Work Phone: 07-05-2011 14:15-0400 Diastolic blood pressure 70 mm[Hg] Ammy Harvey RN [facility]; [facility] Work Phone: Comment on above: Patient Position: Sitting; Cuff Location : Left Arm; Cuff Size: Large 07-05-2011 14:15-0400 Heart rate 80 /min Ammy Harvey RN [facility]; [facility] Work Phone: Comment on above: Pattern: Regular 07-05-2011 14:15-0400 Respiratory rate 16 /min Ammy Harvey RN [facility]; [facility] Work Phone: Comment on above: Pattern: Unlabored 07-05-2011 14:15-0400 Systolic blood pressure 112 mm[Hg] Ammy Harvey RN [facility]; [facility] Work Phone: Comment on above: Patient Position: Sitting; Cuff Location : Left Arm; Cuff Size: Large 06-28-2011 09:24-0400 Body height 165.1 cm Haven Cheung LPN [facility]; [facility] Work Phone: 06-28-2011 09:24-0400 Body mass index (BMI) [Ratio] 22.63 kg/m2 Haven Cheung [employer]BING [employer]IDE [facility]; [facility] Work Phone: 06-28-2011 09:24-0400 Body surface area Derived from formula 1.68 m2 Haven Cheung NARCISA [facility]; [facility] Work Phone: 06-28-2011 09:24-0400 Body temperature 98 [degF] Haven Cheung [employer]IMB[employer] GUIDE [facility]; [facility] Work Phone: Comment on above: Method: Oral 06-28-2011 09:24-0400 Body weight 61.69 kg Haven Cheung NARCISA [facility]; [facility] Work Phone: 06-28-2011 09:24-0400 Diastolic blood pressure 70 mm[Hg] Haven Cheung NARCISA [facility]; [facility] Work Phone: Comment on above: Patient Position: Sitting; Cuff Location : Left Arm; Cuff Size: Standard 06-28-2011 09:24-0400 Heart rate 80 /min Haven Cheung NARCISA [facility]; [facility] Work Phone: Comment on above: Pattern: Regular 06-28-2011 09:24-0400 Respiratory rate 16 /min Haven Cheung NARCISA [facility]; [facility] Work Phone: 06-28-2011 09:24-0400 Systolic blood pressure 118 mm[Hg] Haven Cheung [employer]IDE [facility]; [facility] Work Phone: Comment on above: Patient Position: Sitting; Cuff Location : Left Arm; Cuff Size: Standard 05-24-2011 14:25-0400 Body temperature 98.2 [degF] Haven Cheung NARCISA [facility]; [facility] Work Phone: Comment on above: Method: Oral 05-24-2011 14:25-0400 Diastolic blood pressure 68 mm[Hg] Haven Cheung LPN [facility]; [facility] Work Phone: Comment on above: Patient Position: Sitting; Cuff Location : Left Arm; Cuff Size: Standard 05-24-2011 14:25-0400 Heart rate 76 /min Haven Cheung LPN [facility]; [facility] Work Phone: Comment on above: Pattern: Regular 05-24-2011 14:25-0400 Respiratory rate 16 /min Haven Cheung LPN [facility]; [facility] Work Phone: Comment on above: Pattern: Unlabored 05-24-2011 14:25-0400 Systolic blood pressure 110 mm[Hg] Haven Cheung LPN [facility]; [facility] Work Phone: Comment on above: Patient Position: Sitting; Cuff Location : Left Arm; Cuff Size: Standard 03-29-2011 13:23-0500 Body height 165.1 cm Tiffanie Bhagat [facility]; [facility] Work Phone: 03-29-2011 13:23-0500 Body mass index (BMI) [Ratio] 22.63 kg/m2 Tiffanie Bhagat [facility]; [facility] Work Phone: 03-29-2011 13:23-0500 Body surface area Derived from formula 1.68 m2 Tiffanie Bhagat [facility]; [facility] Work Phone: 03-29-2011 13:23-0500 Body temperature 98 [degF] Tiffanie Bhagat [facility]; [facility] Work Phone: 03-29-2011 13:23-0500 Body weight 61.69 kg Tiffanie Bhagat [facility]; [facility] Work Phone: 03-29-2011 13:23-0500 Diastolic blood pressure 64 mm[Hg] Tiffanie Bhagat [facility]; [facility] Work Phone: Comment on above: Patient Position: Sitting; Cuff Location : Left Arm; Cuff Size: Standard 03-29-2011 13:23-0500 Heart rate 76 /min Tiffanie Mathurisabella [facility]; [facility] Work Phone: Comment on above: Pattern: Regular 03-29-2011 13:23-0500 Respiratory rate 16 /min Tiffanie Bhagat [facility]; [facility] Work Phone: Comment on above: Pattern: Unlabored 03-29-2011 13:23-0500 Systolic blood pressure 100 mm[Hg] Tiffanie Bhagat [facility]; [facility] Work Phone: Comment on above: Patient Position: Sitting; Cuff Location : Left Arm; Cuff Size: Standard 03-03-2011 09:59-0500 Body height 165.1 cm Ivana Rebolledo [facility]; [facility] Work Phone: 03-03-2011 09:59-0500 Body mass index (BMI) [Ratio] 22.13 kg/m2 Ivana Rebolledo [facility]; [facility] Work Phone: 03-03-2011 09:59-0500 Body surface area Derived from formula 1.66 m2 Ivana Rebolledo [facility]; [facility] Work Phone: 03-03-2011 09:59-0500 Body temperature 98.3 [degF] Ivana Rebolledo [facility]; [facility] Work Phone: Comment on above: Method: Oral 03-03-2011 09:59-0500 Body weight 60.33 kg Ivana Rebolledo [facility]; [facility] Work Phone: 03-03-2011 09:59-0500 Diastolic blood pressure 62 mm[Hg] Ivana Rebolledo [facility]; [facility] Work Phone: Comment on above: Patient Position: Supine; Cuff Location: Left Arm; Cuff Size: Standard 03-03-2011 09:59-0500 Heart rate 79 /min Ivana Rebolledo [facility]; [facility] Work Phone: Comment on above: Pattern: Regular 03-03-2011 09:59-0500 Respiratory rate 16 /min Ivana Rebolledo [facility]; [facility] Work Phone: Comment on above: Pattern: Unlabored 03-03-2011 09:59-0500 Systolic blood pressure 102 mm[Hg] Ivana Rebolledo [facility]; [facility] Work Phone: Comment on above: Patient Position: Supine; Cuff Location: Left Arm; Cuff Size: Standard 12-22-2010 10:11-0400 Body height 165.1 cm Lisette Kinamaryalin BREWSTER [facility]; [facility] Work Phone: 12-22-2010 10:11-0400 Body mass index (BMI) [Ratio] 23.3 kg/m2 Lisette Hluszti [employer]IMBING GUIDE [facility]; [facility] Work Phone: 12-22-2010 10:11-0400 Body surface area Derived from formula 1.7 m2 Lisette Guan LPN [facility]; [facility] Work Phone: 12-22-2010 10:11-0400 Body weight 63.5 kg Lisettewilliam Dongalin BREWSTER [facility]; [facility] Work Phone: 12-22-2010 10:11-0400 Heart rate 66 /min Lisettewilliam Camzti NARCISA [facility]; [facility] Work Phone: Comment on above: Pattern: Regular 12-22-2010 10:11-0400 Respiratory rate 16 /min Lisettewilliam Camzti [employer]IMBING GUIDE [facility]; [facility] Work Phone: Comment on above: Pattern: Unlabored 08-26-2010 08:39-0400 Body height 165.1 cm Tiffanie Bhagat [facility]; [facility] Work Phone: 08-26-2010 08:39-0400 Body mass index (BMI) [Ratio] 23.3 kg/m2 Tiffanie Bhagat [facility]; [facility] Work Phone: 08-26-2010 08:39-0400 Body surface area Derived from formula 1.7 m2 Tiffanie Bhagat [facility]; [facility] Work Phone: 08-26-2010 08:39-0400 Body temperature 97.9 [degF] Tiffanie Flcherrie [place] [facility]; [facility] Work Phone: 08-26-2010 08:39-0400 Body weight 63.5 kg Tiffanie Bhagat [place] [facility]; [facility] Work Phone: 08-26-2010 08:39-0400 Diastolic blood pressure 64 mm[Hg] Tiffanie Malavebreeisabella [facility]; [facility] Work Phone: Comment on above: Patient Position: Sitting; Cuff Location : Left Arm; Cuff Size: Standard 08-26-2010 08:39-0400 Heart rate 76 /min Tiffanie Malavecherrie [facility]; [facility] Work Phone: Comment on above: Pattern: Regular 08-26-2010 08:39-0400 Respiratory rate 16 /min Tiffanie Malavecherrie [facility]; [facility] Work Phone: Comment on above: Pattern: Unlabored 08-26-2010 08:39-0400 Systolic blood pressure 100 mm[Hg] Tiffanie Malavebreeisabella [facility]; [facility] Work Phone: Comment on above: Patient Position: Sitting; Cuff Location : Left Arm; Cuff Size: Standard 08-18-2010 08:16-0400 Body height 165.1 cm Ammy Harvey RN [facility]; [facility] Work Phone: 08-18-2010 08:16-0400 Body mass index (BMI) [Ratio] 23.46 kg/m2 Ammy Harvey RN [facility]; [facility] Work Phone: 08-18-2010 08:16-0400 Body surface area Derived from formula 1.71 m2 Ammy Harvey RN [facility]; [facility] Work Phone: 08-18-2010 08:16-0400 Body temperature 97.6 [degF] Ammy Harvey RN [facility]; [facility] Work Phone: Comment on above: Method: Oral 08-18-2010 08:16-0400 Body weight 63.96 kg Ammy Harvey RN [facility]; [facility] Work Phone: 08-18-2010 08:16-0400 Diastolic blood pressure 60 mm[Hg] Ammy Harvey RN [facility]; [facility] Work Phone: Comment on above: Patient Position: Sitting; Cuff Location : Left Arm; Cuff Size: Standard 08-18-2010 08:16-0400 Heart rate 68 /min Ammy Harvey RN [facility]; [facility] Work Phone: Comment on above: Pattern: Regular 08-18-2010 08:16-0400 Respiratory rate 14 /min Ammy Harvey RN [facility]; [facility] Work Phone: Comment on above: Pattern: Unlabored 08-18-2010 08:16-0400 Systolic blood pressure 100 mm[Hg] Ammy Harvey RN [facility]; [facility] Work Phone: Comment on above: Patient Position: Sitting; Cuff Location : Left Arm; Cuff Size: Standard 05-12-2010 15:11-0500 Body temperature 97.4 [degF] Haven Cheung LPN [facility]; [facility] Work Phone: Comment on above: Method: Oral 05-12-2010 15:11-0500 Body weight 59.88 kg Haven Cheung LPN [facility]; [facility] Work Phone: 05-12-2010 15:11-0500 Diastolic blood pressure 70 mm[Hg] Haven Cheung LPN [facility]; [facility] Work Phone: Comment on above: Patient Position: Sitting; Cuff Location : Left Arm; Cuff Size: Standard 05-12-2010 15:11-0500 Heart rate 62 /min Haven Cheung LPN [facility]; [facility] Work Phone: Comment on above: Pattern: Regular 05-12-2010 15:11-0500 Respiratory rate 16 /min Haven Cheung LPN [facility]; [facility] Work Phone: Comment on above: Pattern: Unlabored 05-12-2010 15:11-0500 Systolic blood pressure 122 mm[Hg] Haven Jonatan [employer]IMBING GUIDE [facility]; [facility] Work Phone: Comment on above: Patient Position: Sitting; Cuff Location : Left Arm; Cuff Size: Standard 04-01-2010 09:11-0500 Body temperature 98 [degF] Ammy Mast RN [facility]; [facility] Work Phone: Comment on above: Method: Oral 04-01-2010 09:11-0500 Diastolic blood pressure 74 mm[Hg] Ammy Mast RN [facility]; [facility] Work Phone: Comment on above: Patient Position: Sitting; Cuff Location : Left Arm; Cuff Size: Standard 04-01-2010 09:11-0500 Heart rate 72 /min Ammy Mast RN [facility]; [facility] Work Phone: Comment on above: Pattern: Regular 04-01-2010 09:11-0500 Respiratory rate 16 /min Ammy Harvey RN [facility]; [facility] Work Phone: Comment on above: Pattern: Unlabored 04-01-2010 09:11-0500 Systolic blood pressure 116 mm[Hg] Ammy Mast RN [facility]; [facility] Work Phone: Comment on above: Patient Position: Sitting; Cuff Location : Left Arm; Cuff Size: Standard 03-02-2010 09:27-0500 Body temperature 98.1 [degF] Ammy Mast RN [facility]; [facility] Work Phone: Comment on above: Method: Oral 03-02-2010 09:27-0500 Diastolic blood pressure 58 mm[Hg] Ammy Mast RN [facility]; [facility] Work Phone: Comment on above: Patient Position: Sitting; Cuff Location : Left Arm; Cuff Size: Standard 03-02-2010 09:27-0500 Heart rate 80 /min Ammy Mast RN [facility]; [facility] Work Phone: Comment on above: Pattern: Regular 03-02-2010 09:27-0500 Respiratory rate 20 /min Ammy Harvey RN [facility]; [facility] Work Phone: Comment on above: Pattern: Unlabored 03-02-2010 09:27-0500 Systolic blood pressure 92 mm[Hg] Ammy Harvey RN [facility]; [facility] Work Phone: Comment on above: Patient Position: Sitting; Cuff Location : Left Arm; Cuff Size: Standard 01-20-2010 10:28-0500 Body temperature 97.8 [degF] Haven Cheung [employer]IMBING GUIDE [facility]; [facility] Work Phone: Comment on above: Method: Oral 01-20-2010 10:28-0500 Body weight 59.88 kg Haven Cheung [employer]IMBING GUIDE [facility]; [facility] Work Phone: 01-20-2010 10:28-0500 Diastolic blood pressure 68 mm[Hg] Haven Cheung [employer]IMBING GUIDE [facility]; [facility] Work Phone: Comment on above: Patient Position: Sitting; Cuff Location : Left Arm; Cuff Size: Standard 01-20-2010 10:28-0500 Heart rate 66 /min Haven Cheung [employer]IMBING GUIDE [facility]; [facility] Work Phone: Comment on above: Pattern: Regular 01-20-2010 10:28-0500 Respiratory rate 17 /min Haven Cheung [employer]IMBING GUIDE [facility]; [facility] Work Phone: Comment on above: Pattern: Unlabored 01-20-2010 10:28-0500 Systolic blood pressure 102 mm[Hg] Haven Cheung [employer]IMBING GUIDE [facility]; [facility] Work Phone: Comment on above: Patient Position: Sitting; Cuff Location : Left Arm; Cuff Size: Standard 09-22-2009 09:12-0400 Body temperature 98.2 [degF] Haven Cheung CLIMBING GUIDE [facility]; [facility] Work Phone: Comment on above: Method: Oral 09-22-2009 09:12-0400 Body weight 59.88 kg Haven Cheung [employer]IMBING GUIDE [facility]; [facility] Work Phone: 09-22-2009 09:12-0400 Diastolic blood pressure 68 mm[Hg] Haven Cheung [employer]IMBING GUIDE [facility]; [facility] Work Phone: Comment on above: Patient Position: Sitting; Cuff Location : Left Arm; Cuff Size: Standard 09-22-2009 09:12-0400 Heart rate 74 /min Haven Cheung NARCISA [facility]; [facility] Work Phone: Comment on above: Pattern: Regular 09-22-2009 09:12-0400 Respiratory rate 17 /min Haven Wittjeff BREWSTER [facility]; [facility] Work Phone: Comment on above: Pattern: Unlabored 09-22-2009 09:12-0400 Systolic blood pressure 106 mm[Hg] Haven Cheung NARCISA [facility]; [facility] Work Phone: Comment on above: Patient Position: Sitting; Cuff Location : Left Arm; Cuff Size: Standard 09-17-2009 08:41-0400 Body temperature 97.7 [degF] Tiffanie Bhagat [facility]; [facility] Work Phone: 09-17-2009 08:41-0400 Body weight 59.88 kg Tiffanie Bhagat [facility]; [facility] Work Phone: 09-17-2009 08:41-0400 Diastolic blood pressure 62 mm[Hg] Tiffanie Bhagat [facility]; [facility] Work Phone: Comment on above: Patient Position: Sitting; Cuff Location : Left Arm; Cuff Size: Standard 09-17-2009 08:41-0400 Heart rate 80 /min Tiffanie Bhagat [facility]; [facility] Work Phone: Comment on above: Pattern: Regular 09-17-2009 08:41-0400 Respiratory rate 18 /min Tiffanie Bhagat [facility]; [facility] Work Phone: Comment on above: Pattern: Unlabored 09-17-2009 08:41-0400 Systolic blood pressure 110 mm[Hg] Tiffanie Bhagat [facility]; [facility] Work Phone: Comment on above: Patient Position: Sitting; Cuff Location : Left Arm; Cuff Size: Standard 08-18-2009 15:10-0400 Body temperature 98.4 [degF] Haven Cheung LPN [facility]; [facility] Work Phone: Comment on above: Method: Oral 08-18-2009 15:10-0400 Body weight 60.78 kg Haven Cheung LPN [facility]; [facility] Work Phone: 08-18-2009 15:10-0400 Diastolic blood pressure 62 mm[Hg] Haven Cheung LPN [facility]; [facility] Work Phone: Comment on above: Patient Position: Sitting; Cuff Location : Left Arm; Cuff Size: Standard 08-18-2009 15:10-0400 Heart rate 68 /min Haven Cheung LPN [facility]; [facility] Work Phone: Comment on above: Pattern: Regular 08-18-2009 15:10-0400 Respiratory rate 18 /min Haven Cheung LPN [facility]; [facility] Work Phone: Comment on above: Pattern: Unlabored 08-18-2009 15:10-0400 Systolic blood pressure 104 mm[Hg] Haven Cheung LPN [facility]; [facility] Work Phone: Comment on above: Patient Position: Sitting; Cuff Location : Left Arm; Cuff Size: Standard 07-08-2009 08:36-0400 Body weight 60.78 kg Tiffanie Bhagat [facility]; [facility] Work Phone: 07-08-2009 08:36-0400 Diastolic blood pressure 60 mm[Hg] Tiffanie Bhagat [facility]; [facility] Work Phone: Comment on above: Patient Position: Sitting; Cuff Location : Left Arm; Cuff Size: Standard 07-08-2009 08:36-0400 Heart rate 72 /min Tiffanie Bhagat [facility]; [facility] Work Phone: Comment on above: Pattern: Regular 07-08-2009 08:36-0400 Respiratory rate 18 /min Tiffanie Bhagat [facility]; [facility] Work Phone: Comment on above: Pattern: Unlabored 07-08-2009 08:36-0400 Systolic blood pressure 96 mm[Hg] Tiffanie Bhagat [facility]; [facility] Work Phone: Comment on above: Patient Position: Sitting; Cuff Location : Left Arm; Cuff Size: Standard 05-21-2009 10:29-0400 Body temperature 97.6 [degF] [facility]; [facility] Work Phone: Comment on above: Method: Oral 05-21-2009 10:29-0400 Diastolic blood pressure 60 mm[Hg] [facility] Work Phone: Comment on above: Patient Position: Sitting; Cuff Location : Right Arm; Cuff Size: Standard 05-21-2009 10:29-0400 Heart rate 68 /min Suri Lopez [facility]; [facility] Work Phone: Comment on above: Pattern: Regular 05-21-2009 10:29-0400 Respiratory rate 18 /min Suri [facility]; [facility] Work Phone: Comment on above: Pattern: Unlabored 05-21-2009 10:29-0400 Systolic blood pressure 102 mm[Hg] [facility] Work Phone: Comment on above: Patient Position: Sitting; Cuff Location : Right Arm; Cuff Size: Standard 04-15-2009 09:03-0500 Body temperature 97.3 [degF] Tiffanie Bhagat [facility]; [facility] Work Phone: 04-15-2009 09:03-0500 Diastolic blood pressure 60 mm[Hg] Tiffanie Bhagat [facility]; [facility] Work Phone: Comment on above: Patient Position: Sitting; Cuff Location : Left Arm; Cuff Size: Large 04-15-2009 09:03-0500 Heart rate 66 /min Tiffanie Bhagat [facility]; [facility] Work Phone: Comment on above: Pattern: Regular 04-15-2009 09:03-0500 Respiratory rate 18 /min Tiffanie Bhagat [facility]; [facility] Work Phone: Comment on above: Pattern: Unlabored 04-15-2009 09:03-0500 Systolic blood pressure 110 mm[Hg] Tiffanie Leola [facility]; [facility] Work Phone: Comment on above: Patient Position: Sitting; Cuff Location : Left Arm; Cuff Size: Large 02-26-2009 08:50-0500 Body height 0 cm Tiffanie Leola [facility]; [facility] Work Phone: 02-26-2009 08:50-0500 Body temperature 98.2 [degF] Tiffanie Leola [facility]; [facility] Work Phone: Comment on above: Method: Undefined 02-26-2009 08:50-0500 Body weight 62.6 kg Tiffanie Leola [facility]; [facility] Work Phone: 02-26-2009 08:50-0500 Diastolic blood pressure 64 mm[Hg] Tiffanie Leola [facility]; [facility] Work Phone: Comment on above: Patient Position: Sitting; Cuff Location : Right Arm; Cuff Size: Standard 02-26-2009 08:50-0500 Head Occipital-frontal circumference 0 cm Tiffanie Leola [facility]; [facility] Work Phone: 02-26-2009 08:50-0500 Heart rate 68 /min Tiffanie Leola [facility]; [facility] Work Phone: Comment on above: Pattern: Regular 02-26-2009 08:50-0500 Respiratory rate 16 /min Tiffanie Leola [facility]; [facility] Work Phone: Comment on above: Pattern: Undefined 02-26-2009 08:50-0500 Systolic blood pressure 102 mm[Hg] Tiffaine Leola [facility]; [facility] Work Phone: Comment on above: Patient Position: Sitting; Cuff Location : Right Arm; Cuff Size: Standard 12-25-2008 11:33-0400 Body height 165.1 cm Ivana Rebolledo [facility]; [facility] Work Phone: 12-25-2008 11:33-0400 Body mass index (BMI) [Ratio] 22.46 kg/m2 Ivana Rebolledo [facility]; [facility] Work Phone: 12-25-2008 11:33-0400 Body surface area Derived from formula 1.67 m2 Ivana Rebolledo [facility]; [facility] Work Phone: 12-25-2008 11:33-0400 Body weight 61.24 kg Ivana Rebolledo [facility]; [facility] Work Phone: 12-25-2008 11:33-0400 Diastolic blood pressure 60 mm[Hg] Ivana Rebolledo [facility]; [facility] Work Phone: Comment on above: Patient Position: Supine; Cuff Location: Left Arm; Cuff Size: Standard 12-25-2008 11:33-0400 Head Occipital-frontal circumference 0 cm Ivana Rebolledo [facility]; [facility] Work Phone: 12-25-2008 11:33-0400 Heart rate 60 /min Ivana Rebolledo [facility]; [facility] Work Phone: Comment on above: Pattern: Regular 12-25-2008 11:33-0400 Respiratory rate 16 /min Ivana Rebolledo [facility]; [facility] Work Phone: Comment on above: Pattern: Unlabored 12-25-2008 11:33-0400 Systolic blood pressure 98 mm[Hg] Ivana Rebolledo [facility]; [facility] Work Phone: Comment on above: Patient Position: Supine; Cuff Location: Left Arm; Cuff Size: Standard 12-13-2008 07:30-0400 Body height 0 cm Tiffanie Bhagat [facility]; [facility] Work Phone: 12-13-2008 07:30-0400 Body temperature 97.9 [degF] Tiffanie Bhagat [facility]; [facility] Work Phone: Comment on above: Method: Undefined 12-13-2008 07:30-0400 Body weight 0 kg Tiffanie Bhagat [facility]; [facility] Work Phone: 12-13-2008 07:30-0400 Diastolic blood pressure 64 mm[Hg] Tiffanie Leola [facility]; [facility] Work Phone: Comment on above: Patient Position: Sitting; Cuff Location : Right Arm; Cuff Size: Standard 12-13-2008 07:30-0400 Head Occipital-frontal circumference 0 cm Tiffanie Leola [facility]; [facility] Work Phone: 12-13-2008 07:30-0400 Heart rate 92 /min Tiffanie Leola [facility]; [facility] Work Phone: Comment on above: Pattern: Regular 12-13-2008 07:30-0400 Respiratory rate 18 /min Tiffanie Leola [facility]; [facility] Work Phone: Comment on above: Pattern: Undefined 12-13-2008 07:30-0400 Systolic blood pressure 116 mm[Hg] Tiffanie Leola [facility]; [facility] Work Phone: Comment on above: Patient Position: Sitting; Cuff Location : Right Arm; Cuff Size: Standard 12-03-2008 15:56-0400 Body height 0 cm Tiffanie Leola [facility]; [facility] Work Phone: 12-03-2008 15:56-0400 Body temperature 97.1 [degF] Tiffanie Leola [facility]; [facility] Work Phone: Comment on above: Method: Undefined 12-03-2008 15:56-0400 Body weight 0 kg Tiffanie Leola [facility]; [facility] Work Phone: 12-03-2008 15:56-0400 Diastolic blood pressure 74 mm[Hg] Tiffanie Leola [facility]; [facility] Work Phone: Comment on above: Patient Position: Sitting; Cuff Location : Left Arm; Cuff Size: Standard 12-03-2008 15:56-0400 Head Occipital-frontal circumference 0 cm Tiffanie Bhagat [facility]; [facility] Work Phone: 12-03-2008 15:56-0400 Heart rate 68 /min Tiffanie Bhagat [facility]; [facility] Work Phone: Comment on above: Pattern: Regular 12-03-2008 15:56-0400 Respiratory rate 18 /min Tiffanie Bhagat [facility]; [facility] Work Phone: Comment on above: Pattern: Undefined 12-03-2008 15:56-0400 Systolic blood pressure 108 mm[Hg] Tiffanie Bhagat [facility]; [facility] Work Phone: Comment on above: Patient Position: Sitting; Cuff Location : Left Arm; Cuff Size: Standard 11-19-2008 09:09-0400 Body height 165.1 cm Tiffanie Malavecherrie [place] [facility]; [facility] Work Phone: 11-19-2008 09:09-0400 Body mass index (BMI) [Ratio] 22.46 kg/m2 Tiffanie Malavecherrie [facility]; [facility] Work Phone: 11-19-2008 09:09-0400 Body surface area Derived from formula 1.67 m2 Tiffanie Malavecherrie [facility]; [facility] Work Phone: 11-19-2008 09:09-0400 Body temperature 97.6 [degF] Tiffanie Malavecherrie [facility]; [facility] Work Phone: Comment on above: Method: Undefined 11-19-2008 09:09-0400 Body weight 61.24 kg Tiffanie Malavecherrie [facility]; [facility] Work Phone: 11-19-2008 09:09-0400 Diastolic blood pressure 78 mm[Hg] Tiffanie Malavecherrie [facility]; [facility] Work Phone: Comment on above: Patient Position: Sitting; Cuff Location : Left Arm; Cuff Size: Standard 11-19-2008 09:09-0400 Head Occipital-frontal circumference 0 cm Tiffanie Leola [place] [facility]; [facility] Work Phone: 11-19-2008 09:09-0400 Heart rate 64 /min Tiffanie Malavebreeisabella [facility]; [facility] Work Phone: Comment on above: Pattern: Regular 11-19-2008 09:09-0400 Respiratory rate 18 /min Tiffanie Bhagat [facility]; [facility] Work Phone: Comment on above: Pattern: Undefined 11-19-2008 09:09-0400 Systolic blood pressure 114 mm[Hg] Tiffanie Bhagat [facility]; [facility] Work Phone: Comment on above: Patient Position: Sitting; Cuff Location : Left Arm; Cuff Size: Standard 10-02-2008 15:29-0400 Body height 167.64 cm Ivana Rebolledo [facility]; [facility] Work Phone: 10-02-2008 15:29-0400 Body mass index (BMI) [Ratio] 22.34 kg/m2 Ivanawilliam Rebolledo [facility]; [facility] Work Phone: 10-02-2008 15:29-0400 Body surface area Derived from formula 1.71 m2 Ivana Rebolledo [facility]; [facility] Work Phone: 10-02-2008 15:29-0400 Body weight 62.8 kg Ivana Rebolledo [facility]; [facility] Work Phone: 10-02-2008 15:29-0400 Diastolic blood pressure 76 mm[Hg] Ivana Rebolledo [facility]; [facility] Work Phone: Comment on above: Patient Position: Supine; Cuff Location: Left Arm; Cuff Size: Standard 10-02-2008 15:29-0400 Head Occipital-frontal circumference 0 cm Ivana Rebolledo [facility]; [facility] Work Phone: 10-02-2008 15:29-0400 Heart rate 66 /min Ivana Rebolledo [facility]; [facility] Work Phone: Comment on above: Pattern: Regular 10-02-2008 15:29-0400 Respiratory rate 16 /min Ivanawilliam Rebolledo [facility]; [facility] Work Phone: Comment on above: Pattern: Unlabored 10-02-2008 15:29-0400 Systolic blood pressure 120 mm[Hg] Ivana Rebolledo [facility]; [facility] Work Phone: Comment on above: Patient Position: Supine; Cuff Location: Left Arm; Cuff Size: Standard 09-24-2008 15:24-0400 Body height 167.64 cm Piper Cisneros RN [facility]; [facility] Work Phone: 09-24-2008 15:24-0400 Body mass index (BMI) [Ratio] 22.34 kg/m2 Piper Cisneros RN [facility]; [facility] Work Phone: 09-24-2008 15:24-0400 Body surface area Derived from formula 1.71 m2 Piper Cisneros RN [facility]; [facility] Work Phone: 09-24-2008 15:24-0400 Body weight 62.8 kg Piper Cisneros RN [facility]; [facility] Work Phone: 09-24-2008 15:24-0400 Diastolic blood pressure 78 mm[Hg] Piper Cisneros RN [facility]; [facility] Work Phone: Comment on above: Patient Position: Sitting; Cuff Location : Left Arm; Cuff Size: Large 09-24-2008 15:24-0400 Head Occipital-frontal circumference 0 cm Piper Cisneros RN [facility]; [facility] Work Phone: 09-24-2008 15:24-0400 Heart rate 68 /min Piper Cisneros RN [facility]; [facility] Work Phone: Comment on above: Pattern: Regular 09-24-2008 15:24-0400 Respiratory rate 20 /min Piper Cisneros RN [facility]; [facility] Work Phone: Comment on above: Pattern: Unlabored 09-24-2008 15:24-0400 Systolic blood pressure 122 mm[Hg] Piper Cisneros RN [facility]; [facility] Work Phone: Comment on above: Patient Position: Sitting; Cuff Location : Left Arm; Cuff Size: Large 09-10-2008 13:44-0400 Body height 167.64 cm Ivana Rebolledo [facility]; [facility] Work Phone: 09-10-2008 13:44-0400 Body mass index (BMI) [Ratio] 22.28 kg/m2 Ivana Rebolledo [facility]; [facility] Work Phone: 09-10-2008 13:44-0400 Body surface area Derived from formula 1.71 m2 Ivana Rebolledo [facility]; [facility] Work Phone: 09-10-2008 13:44-0400 Body weight 62.63 kg Ivana Rebolledo [facility]; [facility] Work Phone: 09-10-2008 13:44-0400 Diastolic blood pressure 64 mm[Hg] Ivana Rebolledo [facility]; [facility] Work Phone: Comment on above: Patient Position: Supine; Cuff Location: Left Arm; Cuff Size: Standard 09-10-2008 13:44-0400 Head Occipital-frontal circumference 0 cm Ivana Rebolledo [facility]; [facility] Work Phone: 09-10-2008 13:44-0400 Heart rate 60 /min Ivana Rebolledo [facility]; [facility] Work Phone: Comment on above: Pattern: Regular 09-10-2008 13:44-0400 Respiratory rate 16 /min Ivana Rebolledo [facility]; [facility] Work Phone: Comment on above: Pattern: Unlabored 09-10-2008 13:44-0400 Systolic blood pressure 120 mm[Hg] Ivana Rebolledo [facility]; [facility] Work Phone: Comment on above: Patient Position: Supine; Cuff Location: Left Arm; Cuff Size: Standard Encounters Encounter Date Encounter Type Care Provider Facility Start: 01-15-2025 End: 01-15-2025 ambulatory Aicha Fast Facility:[facility] Start: 01-11-2025 ambulatory Aicha Fast Facility:[facility] Start: 12-24-2024 End: 12-24-[address] Maite Arceo [facility] Work Phone: Start: 12-24-2024 End: 12-24-[address] Aicha Blackwood DO Work Phone: -[facility] Start: 11-26-2024 End: 11-26-[address] Maite Arceo DC -[facility] Work Phone: Start: 11-26-2024 End: 11-26-[address] Aicha Blackwood DO Work Phone: -[facility] Start: 11-19-2024 End: 11-19-[address] Aicha Blackwood DO Work Phone: -Physical Therapy Start: 11-19-2024 End: 11-19-[address] Aicha Blackwood DO -Physical Therapy Work Phone: Start: 11-19-[address] Aicha Blackwood DO -Physical Therapy Work Phone: Start: 11-06-2024 End: 11-06-[address] Aicha Blackwood DO Work Phone: -[facility] Start: 11-06-2024 End: 11-06-[address] Aicha Blackwood DO -[facility] Work Phone: Start: 11-06-2024 End: 11-06-2024 ambulatory Aicha Blackwood Facility:[facility] Start: 10-30-2024 End: 10-30-[address] Maite Arceo DC -[facility] Work Phone: Start: 10-30-2024 End: 10-30-[address] Aicha Blackwood DO Work Phone: -[facility] Start: 10-24-[address] Aicha Blackwood DO -Physical Therapy Work Phone: Start: 10-17-2024 End: 10-17-[address] Narcisa Perez MD -[facility] Work Phone: Start: 10-17-2024 End: 10-17-[address] Aicha Blackwood DO Work Phone: -[facility] Start: 10-08-2024 End: 10-08-[address] Maite Arceo DC -[facility] Work Phone: Start: 10-08-2024 End: 10-08-[address] Aicha Blackwood DO Work Phone: [facility] Start: 09-24-2024 End: 09-24-[address] Maite Arceo DC -[facility] Work Phone: Start: 09-24-2024 End: 09-24-[address] Aicha Blackwood DO Work Phone: [facility] Start: 09-06-2024 End: 09-06-[address] Maite Arceo DC -[facility] Work Phone: Start: 09-06-2024 End: 09-06-[address] Aicha Blackwood DO Work Phone: [facility] Start: 09-06-2024 Non-patient / Non-visit Dr. Edwardo kang MD -[facility] Start: 09-06-2024 End: 09-06-[address] Aicha Blackwood DO Work Phone: -Cardiovascular Services Start: 09-06-2024 End: 09-06-[address] Aicha Blackwood DO -Cardiovascular Services Work Phone: Start: 09-06-2024 End: 09-06-2024 ambulatory Aicha Blackwood Facility:[facility] Start: 09-04-2024 Non-patient / Non-visit Dr. Willie Perez MD -[facility] Work Phone: Start: 08-28-2024 End: 08-28-[address] Maite Arceo DC -[facility] Work Phone: Start: 08-28-2024 End: 08-28-[address] Aicha Blackwood DO Work Phone: [facility] Work Phone: Start: 08-23-2024 End: 08-23-[address] Maite Arceo DC -[facility] Work Phone: Start: 08-23-2024 End: 08-23-[address] Aicha Blackwood DO Work Phone: [facility] Work Phone: Start: 08-09-2024 End: 08-09-[address] Maite Arceo DC -[facility] Work Phone: Start: 08-09-2024 End: 08-09-[address] Aicha Blackwood DO Work Phone: [facility] Work Phone: Start: 08-02-2024 End: 08-02-[address] Aicha Blackwood DO Work Phone: [facility] Work Phone: Start: 08-02-2024 End: 08-02-[address] Aicha Blackwood DO -Cardiovascular Services Work Phone: Start: 08-02-2024 End: 08-02-2024 ambulatory Aicha Blackwood Facility:[facility] Start: 07-31-2024 End: 07-31-[address] Maite Arceo DC -[facility] Work Phone: Start: 07-31-2024 End: 07-31-[address] Aicha Blackwood DO Work Phone: [facility] Work Phone: Start: 07-02-2024 End: 07-02-[address] Maite Arceo DC -[facility] Work Phone: Start: 07-02-2024 End: 07-02-2024 ambulatory Maite Arceo Facility:[facility] Start: 06-26-2024 End: 06-26-[address] Aicha Blackwood DO -Physical Therapy Work Phone: Start: 06-26-2024 End: 06-26-2024 ambulatory Aicha Blackwood Facility:[facility] Start: 06-15-2024 ambulatory Aly Alyssa Facility :[facility] Start: 06-15-2024 ambulatory Aicha Blackwood Facility:[facility] Start: 06-06-2024 End: 06-06-[address] Murphy Stafford MD -[facility] Start: 06-06-2024 End: 06-06-2024 ambulatory Murphy Stafford Facility:[facility] Start: 06-04-2024 End: 06-04-[address] Maite Arceo DC -[facility] Work Phone: Start: 06-04-2024 End: 06-04-2024 ambulatory Maite Arceo Facility:[facility] Start: 05-29-2024 End: 06-04-[address] Aicha Blackwood DO -Nutritional Servic es Work Phone: Start: 05-29-2024 End: 06-04-[address] Aicha Blackwood DO Work Phone: [facility] Work Phone: Start: 05-17-2024 Encounter for genera l adult medical examination without abnormal findings Tiffanie Cano [facility] Start: 05-04-2024 End: 05-04-[address] Aicha Blackwood DO Work Phone: [facility] Work Phone: Start: 05-04-2024 End: 05-04-2024 Patient encounter procedure Tiffanie LOPEZC -Laboratory, [place] Work Phone: Start: 05-04-2024 End: 05-04-2024 ambulatory Tiffanie Cano Facility:[facility] Start: 05-01-2024 End: 05-01-[address] Aicha Blackwood DO Work Phone: [facility] Work Phone: Start: 05-01-2024 End: 05-01-2024 Patient encounter procedure Tiffanie BERRY -[facility] Work Phone: Start: 04-30-2024 End: 04-30-[address] Maite Arceo DC -[facility] Work Phone: Start: 04-30-2024 End: 05-01-2024 ambulatory Tiffanie Cano Facility:[facility] Start: 03-19-2024 End: 03-19-[address] Maite Arceo DC -[facility] Work Phone: Start: 03-19-2024 End: 03-19-2024 ambulatory Maite Arceo Facility:[facility] Start: 03-15-2024 End: 03-15-2024 Patient encounter procedure Tiffanie BERRY -[facility] Work Phone: Start: 03-15-2024 End: 03-15-2024 ambulatory Aicha Blackwood Facility:[facility] Start: 02-16-2024 End: 02-16-[address] Maite Arceo DC -[facility] Work Phone: Start: 02-16-2024 End: 02-16-2024 ambulatory Maite Arceo Facility:[facility] Start: 02-09-2024 End: 02-09-2024 ambulatory Aicha Blackwood Facility:[facility] Start: 02-09-2024 End: 02-09-[address] Aicha Blackwood DO -Physical Therapy Work Phone: Start: 01-17-2024 End: 01-17-[address] Maite Arceo DC -[facility] Work Phone: Start: 01-24-2023 End: 01-24-[address] Edwardo Petit Work Phone: [facility] Work Phone: Start: 01-21-2023 Non-patient / Non-visit Dr. Jeff Petit Work Phone: [facility] Start: 01-21-2023 End: 01-21-[address] Edwardo Petit Work Phone: [facility] Work Phone: Start: 01-21-2023 End: 01-21-[address] Edwardo Petit Work Phone: [facility] Work Phone: Start: 01-07-2023 Review Aicha Fast DO Work Phone: [facility] Start: 01-05-2023 End: 01-05-2023 Office outpatient visit 15 minutes Aicha Fast DO Work Phone: [facility] Start: 12-30-2022 End: 12-30-[address] [facility] Work Phone: Start: 12-24-2022 End: 12-27-2022 Office outpatient new 45 minutes Aicha Fast DO Work Phone: [facility] Start: 12-24-2022 Review Aicha Fast DO Work Phone: [facility] Start: 12-07-2022 End: 12-07-[address] Edwardo Petit Work Phone: [facility] [facility] Work Phone: Start: 11-24-2022 End: 11-24-[address] Edwardo Petit Work Phone: [facility] Work Phone: Start: 11-24-2022 End: 11-24-[address] Edwardo Petit Work Phone: [facility]Medical Out Work Phone: Start: 11-22-2022 End: 11-22-[address] Edwardo Petit Work Phone: [facility] Work Phone: Start: 11-22-2022 End: 11-22-[address] Edwardo Petit Work Phone: [facility] Work Phone: Start: 11-09-2022 End: 11-09-[address] Edwardo Petit Work Phone: [facility] Work Phone: Start: 11-02-2022 End: 11-02-[address] Edwardo Petit Work Phone: [facility] Work Phone: Start: 11-02-2022 End: 11-02-[address] Edwardo Petit Work Phone: [facility]-Outpatient Bone Densitometry Work Phone: Start: 10-21-2022 End: 10-21-[address] Edwardo Petit Work Phone: [facility] Work Phone: Start: 10-21-2022 End: 10-21-[address] Edwardo Petit Work Phone: [facility] Work Phone: Start: 10-11-2022 End: 10-11-[address] Edwardo Petit Work Phone: [facility] Work Phone: Start: 08-26-2022 End: 08-26-[address] Edwardo Petit Work Phone: [facility] Work Phone: Start: 08-04-2022 End: 08-04-[address] Edwardo Petit Work Phone: [facility] Work Phone: Start: 08-04-2022 End: 08-04-[address] Edwardo Petit Work Phone: [facility]-Laboratory, Specimen Work Phone: Start: 07-29-2022 End: 07-29-[address] Edwardo Petit Work Phone: [facility] Work Phone: Start: 06-23-2022 End: 06-23-[address] Edwardo Petit Work Phone: [facility] Work Phone: Start: 06-23-2022 End: 06-23-[address] Edwardo Petit Work Phone: [facility] Start: 06-22-2022 End: 06-22-[address] Edwardo Petit Work Phone: [facility] Work Phone: Start: 06-22-2022 End: 06-22-[address] Edwardo Petit Work Phone: [facility]-Laboratory, Specimen Start: 06-15-2022 End: 06-15-[address] Edwardo Petit Work Phone: [facility] Start: 06-04-2022 End: 06-04-[address] Edwardo Petit Work Phone: [facility] Work Phone: Start: 06-04-2022 End: 06-04-[address] Edwardo Petit Work Phone: [facility] Start: 06-03-2022 End: 06-03-[address] Edwardo Petit Work Phone: [facility] Start: 05-31-2022 End: 05-31-[address] Edwardo Petit Work Phone: [facility] Start: 05-27-2022 End: 05-27-[address] Edwardo Petit Work Phone: [facility] Start: 05-25-2022 End: 05-25-[address] Edwardo Petit Work Phone: [facility] Work Phone: Start: 05-25-2022 End: 05-25-[address] Edward[facility] Start: 05-25-2022 End: 05-25-[address] Edwardo Petit Work Phone: [facility] Start: 05-20-2022 End: 05-20-[address] Edwardo Petit Work Phone: [facility] Start: 05-17-2022 End: 05-17-[address] Edwardo Petit Work Phone: [facility] Start: 05-13-2022 End: 05-13-[address] Edwardo Petit Work Phone: [facility] Start: 05-10-2022 End: 05-10-[address] Edwardo Petit Work Phone: [facility] Start: 05-06-2022 End: 05-06-[address] Edwardo Petit Work Phone: [facility] Start: 05-04-2022 End: 05-04-[address] Edwardo Petit Work Phone: [facility] Start: 04-29-2022 End: 04-29-[address] Edwardo Petit Work Phone: [facility] Start: 04-27-2022 End: 04-27-[address] Edwardo Petit Work Phone: [facility] Start: 04-22-2022 End: 04-22-[address] Edwardo Petit Work Phone: [facility] Start: 04-20-2022 End: 04-20-[address] Edwardo Petit Work Phone: [facility] Work Phone: Start: 04-20-2022 End: 04-20-[address] Edwardo Petit Work Phone: [facility] Start: 04-19-2022 End: 04-19-[address] Edwardo Petit Work Phone: [facility] Start: 04-08-2022 End: 04-08-[address] Edwardo Petit Work Phone: [facility] Start: 04-08-2022 End: 04-08-[address] Edwardo Petit Work Phone: [facility] Work Phone: Start: 04-08-2022 End: 04-08-[address] Edwardo Petit Work Phone: [facility] Start: 03-10-2022 End: 03-10-[address] Edwardo Petit Work Phone: [facility] Work Phone: Start: 03-10-2022 End: 03-10-[address] Edwardo Petit Work Phone: [facility] Start: 03-09-2022 End: 03-09-[address] Edwardo Petit Work Phone: [facility] Start: 03-02-2022 End: 03-02-[address] Edwardo Petit Work Phone: [facility] Work Phone: Start: 03-02-2022 End: 03-02-[address] Edwardo Petit Work Phone: [facility]Laboratory, Specimen Start: 02-22-2022 End: 02-22-[address] Edwardo Petit Work Phone: [facility] Work Phone: Start: 02-22-2022 End: 02-22-[address] Edwardo Petit Work Phone: [facility] Start: 01-20-2022 End: 01-20-[address] Edwardo Petit Work Phone: [facility] Start: 12-28-2021 End: 12-28-[address] Edwardo Petit Work Phone: [facility] Start: 12-25-2021 End: 12-25-[address] Edwardo Petit Work Phone: [facility] Work Phone: Start: 12-25-2021 End: 12-25-[address] Edwardo Petit Work Phone: [facility] Start: 12-22-2021 End: 12-22-[address] Edwardo Petit Work Phone: [facility] Start: 12-16-[address] Edward[facility] Start: 12-15-2021 End: 12-15-[address] Edwardo Petit Work Phone: [facility] Work Phone: Start: 12-15-2021 End: 12-15-[address] Edwardo Petit Work Phone: [facility] Start: 12-14-2021 End: 12-14-[address] Edwardo Petit Work Phone: [facility] Start: 11-24-2021 End: 11-24-[address] Edwardo Petit Work Phone: [facility] Start: 11-20-2021 End: 11-20-[address] Edwardo Petit Work Phone: [facility] Work Phone: Start: 11-20-2021 End: 11-20-[address] Edward[facility] Pet[facility] Start: 11-10-2021 End: 11-10-[address] Edwardo Petit Work Phone: [facility] Start: 10-19-2021 End: 10-19-[address] Edwardo Petit Work Phone: [facility] Start: 10-15-2021 End: 10-15-[address] Edwardo Petit Work Phone: [facility] Start: 09-21-2021 End: 09-21-[address] Edwardo Petit Work Phone: [facility] Start: 08-24-2021 End: 08-24-[address] Edwardo Petit Work Phone: [facility] Start: 07-27-2021 End: 07-27-[address] Edwardo Petit Work Phone: [facility] Start: 07-09-2021 End: 07-09-[address] Edward[facility] Petit [facility] Start: 06-29-2021 End: 06-29-[address] Edwardo Petit Work Phone: [facility] Start: 06-01-2021 End: 06-01-[address] Edwardo Petit Work Phone: [facility] Start: 05-08-2021 End: 05-08-[address] Edward[facility] Petit [facility] Start: 05-04-2021 End: 05-04-[address] Edwardo Petit Work Phone: [facility] Start: 04-06-2021 End: 04-06-[address] Edwardo Petit Work Phone: [facility] Start: 04-03-2021 End: 04-03-[address] Edwardo Petit [facility] Start: 04-03-2021 End: 04-03-[address] Edwardo Petit [facility] Start: 02-14-2015 End: 02-16-2015 Office outpatient visit 10 minutes Aicha Fast DO Work Phone: [facility] Start: 02-04-2015 End: 02-04-2015 Phone Encounter Aicha Fast DO Work Phone: [facility] Start: 12-25-2014 End: 12-26-2014 Office outpatient visit 15 minutes Aicha Fast DO Work Phone: [facility] Start: 12-18-2014 End: 12-19-2014 Office outpatient visit 25 minutes Aicha Fast DO Work Phone: [facility] Start: 11-20-2014 End: 11-20-2014 Office outpatient visit 15 minutes Aicah Fast DO Work Phone: [facility] Start: 11-19-2014 End: 11-19-2014 Phone Encounter Aicha Fast DO Work Phone: [facility] Start: 11-04-2014 End: 11-04-2014 Office outpatient visit 15 minutes Aicha Fast DO Work Phone: [facility] Start: 11-01-2014 End: 11-01-2014 Office outpatient visit 15 minutes Aicha Fast DO Work Phone: [facility] Start: 09-04-2014 End: 09-09-2014 Office outpatient visit 15 minutes Aicha Fast DO Work Phone: [facility] Start: 07-31-2014 End: 08-01-2014 Office outpatient visit 15 minutes Aicha Fast DO Work Phone: [facility] Start: 06-28-2014 End: 06-30-2014 Office outpatient visit 15 minutes Aicha Fast DO Work Phone: [facility] Start: 06-28-2014 End: 06-30-2014 Patient encounter procedure Aicha Fast DO Work Phone: [facility] Start: 05-17-2014 End: 05-19-2014 Office outpatient visit 15 minutes Aicha Fast DO Work Phone: [facility] Start: 01-23-2014 End: 01-23-2014 Office outpatient visit 40 minutes Aicha Fast DO Work Phone: [facility] Start: 01-22-2014 End: 01-22-2014 Office outpatient visit 15 minutes Aicha Fast DO Work Phone: [facility] Start: 12-10-2013 End: 12-10-2013 Phone Encounter Aicha Fast DO Work Phone: [facility] Start: 11-12-2013 End: 11-12-2013 Phone Encounter Aicha Fast DO Work Phone: [facility] Start: 11-09-2013 End: 11-11-2013 Office outpatient visit 25 minutes Aicha Fast DO Work Phone: [facility] Start: 10-03-2013 End: 10-03-2013 Office outpatient visit 15 minutes Aicha Fast DO Work Phone: [facility] Start: 07-19-2013 End: 07-19-2013 Patient encounter procedure Aicha Fast DO Work Phone: [facility] Start: 07-17-2013 End: 07-17-2013 Office outpatient visit 15 minutes Aicha Fast DO Work Phone: [facility] Start: 06-27-2013 End: 06-27-2013 Patient encounter procedure Aicha Fast DO Work Phone: [facility] Start: 05-09-2013 End: 05-09-2013 Patient encounter procedure Aicha Fast DO Work Phone: [facility] Start: 02-06-2013 End: 02-06-2013 Patient encounter procedure Aicha Fast DO Work Phone: [facility] Start: 01-02-2013 End: 01-02-2013 Patient encounter procedure Aicha Fast DO Work Phone: [facility] Start: 12-22-2012 End: 12-24-2012 Patient encounter procedure Aicha Fast DO Work Phone: [facility] Start: 11-02-2012 End: 11-02-2012 Patient encounter procedure Aicha Fast DO Work Phone: [facility] Start: 09-06-2012 End: 09-06-2012 Annotation/Addendum Aicha Fast DO Work Phone: [facility] Start: 08-23-2012 End: 08-23-2012 Phone Encounter Aicha Fast DO Work Phone: [facility] Start: 08-21-2012 End: 08-22-2012 Patient encounter procedure Aicha Fast DO Work Phone: [facility] Start: 08-02-2012 End: 08-02-2012 Phone Encounter Aicha Fast DO Work Phone: [facility] Start: 08-02-2012 End: 08-03-2012 Patient encounter procedure Aicha Fast DO Work Phone: [facility] Start: 07-21-2012 End: 07-23-2012 Patient encounter procedure Aicha Fast DO Work Phone: [facility] Start: 05-03-2012 End: 05-03-2012 Patient encounter procedure Aicha Fast DO Work Phone: [facility] Start: 03-28-2012 End: 03-28-2012 Patient encounter procedure Pressure Dispatcher [facility] Start: 02-25-2012 End: 02-25-2012 Patient encounter procedure Aicha Fast DO Work Phone: [facility] Start: 02-18-2012 End: 02-18-2012 Office outpatient visit 25 minutes Aicha Fast DO Work Phone: [facility] Start: 12-20-2011 End: 12-20-2011 Office outpatient visit 15 minutes Aicha Fast DO Work Phone: [facility] Start: 12-13-2011 End: 12-13-2011 Patient encounter procedure Aicha Fast DO Work Phone: [facility] Start: 11-26-2011 End: 11-26-2011 Admission to establishment Aicha Fast DO Work Phone: [facility] Start: 11-22-2011 End: 11-22-2011 Office outpatient visit 25 minutes Aicha Fast DO Work Phone: [facility] Start: 09-20-2011 End: 09-20-2011 Patient encounter procedure Aicha Fast DO Work Phone: [facility] Start: 08-11-2011 End: 08-11-2011 Office outpatient visit 15 minutes Aicha Fast DO Work Phone: [facility] Start: 07-21-2011 End: 07-21-2011 Office outpatient visit 25 minutes Aicha Fast DO Work Phone: [facility] Start: 07-05-2011 End: 07-05-2011 Office outpatient visit 15 minutes Aicha Fast DO Work Phone: [facility] Start: 06-30-2011 End: 06-30-2011 Phone Encounter Aicha Fast DO Work Phone: [facility] Start: 06-28-2011 End: 06-28-2011 Office outpatient visit 25 minutes Aicha Fast DO Work Phone: [facility] Start: 05-24-2011 End: 05-24-2011 Office outpatient visit 25 minutes Aicha Fast DO Work Phone: [facility] Start: 03-29-2011 End: 03-29-2011 Patient encounter procedure Aicha Fast DO Work Phone: [facility] Start: 03-03-2011 End: 03-03-2011 Patient encounter procedure Aicha Fast DO Work Phone: [facility] Start: 12-22-2010 End: 12-22-2010 Patient encounter procedure Aicha Fast DO Work Phone: [facility] Start: 08-26-2010 End: 08-26-2010 Patient encounter procedure Aicha Fast DO Work Phone: [facility] Start: 08-18-2010 End: 08-18-2010 Patient encounter procedure Aicha Fast DO Work Phone: [facility] Start: 08-10-2010 End: 08-10-2010 Phone Encounter Aicha Fast DO Work Phone: [facility] Start: 05-12-2010 End: 05-12-2010 Office outpatient visit 25 minutes Aicha Fast DO Work Phone: [facility] Start: 04-10-2010 End: 04-10-2010 Historical Summary Aicha Fast DO Work Phone: [facility] Start: 04-01-2010 End: 04-01-2010 Patient encounter procedure Aicha Fast DO Work Phone: [facility] Start: 03-02-2010 End: 03-02-2010 Phone Encounter Aicha Fast DO Work Phone: [facility] Start: 03-02-2010 End: 03-02-2010 Patient encounter procedure Aicha Fast DO Work Phone: [facility] Start: 01-23-2010 End: 01-23-2010 Patient encounter procedure Aicha Fast DO Work Phone: [facility] Start: 01-20-2010 End: 01-20-2010 Office outpatient visit 15 minutes Aicha Fast DO Work Phone: [facility] Start: 12-23-2009 End: 12-23-2009 Phone Encounter Aicha Fast DO Work Phone: [facility] Start: 12-19-2009 End: 12-19-2009 Patient encounter procedure Aicha Fast DO Work Phone: [facility] Start: 09-22-2009 End: 09-22-2009 Office outpatient visit 10 minutes Aicha Fast DO Work Phone: [facility] Start: 09-17-2009 End: 09-17-2009 Patient encounter procedure Aicha Fast DO Work Phone: [facility] Start: 08-18-2009 End: 08-18-2009 Office outpatient visit 15 minutes Aicha Fast DO Work Phone: [facility] Start: 07-08-2009 End: 07-08-2009 Patient encounter procedure Aciha Fast DO Work Phone: [facility] Start: 05-30-2009 End: 05-30-2009 Historical Summary Aicha Fast DO Work Phone: [facility] Start: 05-21-2009 End: 05-21-2009 Patient encounter procedure Aicha Fast DO Work Phone: [facility] Start: 04-15-2009 End: 04-15-2009 Patient encounter procedure Aicha Fast DO Work Phone: [facility] Start: 02-26-2009 End: 02-26-2009 Patient encounter procedure Aicha Fast DO Work Phone: [facility] Start: 12-25-2008 End: 12-25-2008 Office outpatient visit 25 minutes Aicha Fast DO Work Phone: [facility] Start: 12-19-2008 End: 12-19-2008 Patient encounter procedure Aicha Fast DO Work Phone: [facility] Start: 12-13-2008 End: 12-15-2008 Patient encounter procedure Aicha Fast DO Work Phone: [facility] Start: 12-03-2008 End: 12-04-2008 Patient encounter procedure Aicha Fast DO Work Phone: [facility] Start: 11-19-2008 End: 11-19-2008 Patient encounter procedure Aicha Fast DO Work Phone: [facility] Start: 10-02-2008 End: 10-02-2008 Office outpatient visit 15 minutes Aicha Fast DO Work Phone: [facility] Start: 09-24-2008 End: 09-24-2008 Office outpatient visit 15 minutes Aicha Fast DO Work Phone: [facility] Start: 09-10-2008 End: 09-10-2008 Office outpatient visit 25 minutes Aicha Fast DO Work Phone: [facility] Start: 07-25-2008 End: 07-25-2008 Historical Summary Aicha Fast DO Work Phone: [facility] Patient encounter procedure Tiffanie Bhagat [facility] Work Phone: Patient encounter procedure Joaquina Lewis [facility] Work Phone: Patient encounter procedure Joaquina Lewis [facility] Work Phone: Procedures Date Procedure Procedure Detail Performing Clinician Start: 11-06-2024 Dual energy X-ray absorptiometry Dr. Aicha Blackwood DO Work Phone: Start: 11-06-2024 Screening mammography D celia Blackwood DO Work Phone: Start: 06-06-2024 Plain x-ray of pelvi s and lower extremity Dr. Aicha Blackwood DO Work Phone: Start: 05-01-20[address] detection [address] Aicha Blackwood DO Work Phone: Start: 05-01-2024 Iadna-dna/rna gi pth gn multiplex probe tq 6-11 Dr. Aicha Blackwood DO Work Phone: Start: 05-01-[address] Aicha Blackwood DO Work Phone: Start: 01-21-2023 Radionuclide imaging of perfusion of myocardium under exercise stress Dr. Edwardo Petit Work Phone: Start: 11-02-2022 Dual energy X-ray absorptiometry Dr. Edwardo Petit Work Phone: Start: 11-02-2022 Screening mammography Daxa Petit Work Phone: Start: 08-04-2022 Bacteria identified in Urine by Culture Dr. Edwardo Petit Work Phone: Start: 08-04-[address] Edwardo Petit Work Phone: Start: 06-22-[address] Edwardo Petit Work Phone: Start: 06-04-2022 MRI of lumbar spine Dr. Edwardo Petit Work Phone: Start: 03-10-[address] Edwardo Petit Work Phone: Start: 02-22-[address] Azalea Petit Work Phone: Start: 12-15-2021 X-ray of lumbosacral spine Dr. Edwardo Petit Work Phone: Start: 07-09-2021 Investigation of transfusion reaction Dr. Edwardo Petit Work Phone: Start: 07-09-[address] Edwardo Petit Work Phone: Start: 04-03-[address] Edwardo Petit Work Phone: Start: 12-23-2014 End: 12-23-2014 Abdomen/Pelvis without Cont Procedure Note: See Note; NOTES: [facility] Imaging Services [address] [place] [address] Verdana 4d Abdomen/Pelvis without Cont MR#: [id number] Acct: [id number] Name: ANTONIO DECKER Jey Rep #: [id number] : 1945 F 69 From: Kika Small MD PCP: Aicha Blackwood DO Status: REG CLI Study: Abdomen/Pelvis without Cont Date of Exam: 12/23/14 Exam# [id number] Ordering Dr: Aicha Blackwood DO STUDY: CT ABDOMEN AND PELVIS WITHOUT CONTRAST REASON FOR EXAM: Female, 69 years old. Hematuria. Recurrent UTI RADIATION DOSAGE (If Supplied By Facility): CTDIvol = ( 7.98 ) mGy, DLP = ( 342.43 ) mGycm TECHNIQUE: Transaxial images were obtained from the dome of the diaphragm to the symphysis pubis without oral contrast, and without intravenous contrast. Sagittal and coronal images were reconstructed. COMPARISON: None. FINDINGS: Hyperinflation is noted in both lungs suggesting COPD. The visualized portions of the heart are within normal limits. Normal liver. Normal gallbladder and extrahepatic biliary system. Normal spleen. Normal pancreas. Normal bilateral adrenal glands. Normal right kidney. Normal left kidney. 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 Normal visualized stomach. Normal small intestine. There are multiple colonic diverticula consistent with diverticulosis. There is non-visualization of the appendix. Normal abdominal aorta. Normal inferior vena cava. Normal retroperitoneum. Normal urinary bladder. There is atrophy of the uterus. Normal abdominal wall. Normal osseous structures. IMPRESSION: Diverticulosis of the colon. There is no evidence of kidney stones. Electronically Signed: Mauricio Small MD at 11:36 EDT Tel , Service support [phone], CC: Aicha Blackwood DO Manager Policy: Signed Aicha Blackwood DO Work Phone: Start: 11-20-2014 End: 11-22-2014 Sacrum-Coccyx min 2 Views Procedure Note: See Note; NOTES: [facility] Imaging Services [address] [place] [address] Radiology Report MR#: [id number] Acct: [id number] Name: ANTONIO DECKER Rep #: [id number] : 1945 F 69 From: Angelito Lester MD PCP: Aicha Blackwood DO Status: REG CLI Study: Sacrum-Coccyx min 2 Views Date of Exam: 11/20/14 Exam# [id number] Ordering Dr: Tash Rust STUDY: X-RAY - SACRUM/COCCYX REASON FOR EXAM: Female, 69 years old. Status post fall. Posterior sacral pain. TECHNIQUE: 3 view(s) of the sacrum and coccyx were obtained. COMPARISON: None. FINDINGS: Normal bilateral sacroiliac joints. Normal visualized sacral ala and fused sacral bodies. Normal sacrococcygeal junction with a normal angulation. Normal coccygeal segments. The presacral soft tissue structures are unremarkable. IMPRESSION: Normal x-rays of the sacrum and coccyx. Electronically Signed: Angelito Lester MD at 4:38 EDT , Service support [phone], RAD/Sacrum-Coccyx min 2 Views IMPRESSION: Normal x-rays of the sacrum and coccyx. Electronically Signed: Angelito Lester MD at 4:38 EDT , Service support [phone], CC: Tash Rust; Aicha Blackwood DO Manager Policy: Signed Tash Rust Work Phone: Start: 07-23-2014 End: 07-23-2014 Bilat Scrn Digital AND CAD Procedure Note: See Note; NOTES: [facility] Imaging Services [address] [place] [address] Breast Imaging Report MR#: [id number] Acct: [id number] Name: ANTONIO DECKER Rep #: [id number] : 1945 F 69 From: Juanpablo Duran MD PCP: Aicha Blackwood DO Status: REG CLI Study: Jermaine Scrn Digital AND CAD Date of Exam: 07/23/14 Exam# [id number] Ordering Dr: Aicha Blackwood DO MAMMOGRAPHY - BILATERAL SCREENING REASON FOR EXAM: Female, 69 years old. Routine annual screening examination. PERTINENT HISTORY: Non-contributory. TECHNIQUE: Digital examination. Mediolateral oblique (MLO) and craniocaudad (CC) views of both breasts were obtained. CAD: CAD was performed on this study. COMPARISON: Comparison is made with prior examination dated July 19, 2013 and July 18, 2012. FINDINGS: Breast Composition: The breasts are heterogeneously dense, which may obscure small masses. There are no dominant masses or suspicious calcifications. No other significant abnormalities are identified. There has been no significant change since the prior study. IMPRESSION: Stable bilateral screening mammogram. Yearly follow-up recommended. (A) ASSESSMENT CATEGORY: BIRADS Category 2: Benign. A letter regarding these results will be sent to the patient by the facility within 30 days. Approximately 10% of breast cancers are not detected by mammography. A normal mammogram should not delay biopsy of a clinically suspicious abnormality. Electronically Signed: Juanpablo Duran MD at 10:39 EDT Tel [phone], Service support [phone], CC: Aicha Blackwood DO Manager Policy: Signed Aicha Blackwood DO Work Phone: Start: 07-23-2014 End: 07-24-2014 Dexa Bone Density Study (HP) Procedure Note: See Note; NOTES: [facility] Imaging Services [address] [place] [address] Bone Density Report MR#: [id number] Acct: [id number] Name: ANTONIO DECKER Rep #: [id number] : 1945 F 69 From: Juanpablo Duran MD PCP: Aicha Blackwood DO Status: REG CLI Study: Dexa Bone Density Study () Date of Exam: 07/23/14 Exam# [id number] Ordering Dr: Aicha Blackwood DO STUDY: DUAL ENERGY X-RAY ABSORPTIOMETRY / DXA REASON FOR EXAM: Female, 69 years old. The patient is postmenopausal. TECHNIQUE: Bone Mineral Density (BMD) measurements of lumbar spine and bilateral hips were obtained. COMPARISON: Comparison is made with prior examination dated July 18, 2012. FINDINGS: Lumbar Spine (L1-L4): g/cm2 (0.890) / T-score (-2.3) / Z-score (-0.7) Findings are suggestive of osteopenia with a moderate fracture risk. Left Femur Total: g/cm2 (0.911) / T-score (-0.8) / Z-score (0.6) Left Femoral Neck: g/cm2 (0.862) / T-score (-1.3) / Z-score (0.3) Right Femur Total: g/cm2 (0.883) / T-score (-1.0) / Z-score (0.3) Right Femoral Neck: g/cm2 (0.838) / T-score (-1.4) / Z-score (0.1) The T-Scores on the most recent prior examination were: Lumbar Spine (L1-L4): There has been improvement of bone density since the previous examination. Left Femur Total: which represents an improvement of 0.6%. Right Femur Total: which represents an improvement of 1.0%. IMPRESSION: The patient is considered osteopenic as outlined below according to World Andrze[employer] Organization (WHO) criteria with a moderate fracture risk. There has been improvement of bone density since the previous examination. Reference Information: The T-score is the number of standard deviations above or below the standard which is normal for young adults at their peak bone mineral density. The World Health Organization (WHO) interprets the T-scores as follows: Above -1 Normal bone density Between -1 and -2.5 Osteopenia Equal to / or below -2.5 Osteoporosis As a practical clinical guideline, osteopenia may be graded as follows: Mild -1 through -1.5 Moderate -1.6 through -2.0 Severe -2.1 through -2.4 The Z-score is the number of standard deviations above or below age-matched controls. A Z-score of less than -1.5 would be considered abnormal. References: 1. NIH Osteoporosis and Related Bone Diseases http://www.osteo.org 2. International Society for Clinical Densitometry http://www.iscd.org 3. National Osteoporosis Foundation http://www.nof.org Electronically Signed: Juanpablo Duran MD at 11:29 EDT Tel [phone], Service support [phone], CC: Aicha Blackwood DO Manager Policy: Signed Aicha Blackwood DO Work Phone: Start: 11-14-2013 End: 11-14-2013 Echocardiogram Complete Procedure Note: See Note; NOTES: [facility] Cardiovascular Services [address] [place] [address] Echo Complete 11/14/13 0803 MR#: [id number] Acct: [id number] Name: ANTONIO DECKER Rep #: [id number] : 1945 68 From: Rik Chaudhary MD Attending Dr: Aicha Blackwood DO Status: REG CLI Ordering Dr: Aicha Blackwood DO Date: 11/14/13 Location: [facility] Sex: F C Admitted: Procedure This was a 2D Doppler, Color Flow transthoracic echocardiogram. Exam performed in department. Left Ventricle Normal size and thickness. The estimated ejection fraction is 65 %. Stage 1 diastolic dysfunction. No regional wall motion abnormalities noted. Right Ventricle Normal size and thickness. Normal systolic function. Atria Normal left atrium. Normal right atrium. Normal atrial septum. Mitral Valve The mitral valve is structurally normal. No prolapse or stenosis seen. Tricuspid Valve Normal tricuspid valve. Trivial tricuspid valve insufficiency. Right ventricular systolic pressure estimated to be 11 mmHg. Aortic Valve Normal aortic valve. Trisinus/trileaflet aortic valve. Pulmonic Valve Normal pulmonic valve. Great Vessels Normal aortic root. Normal arch. Normal inferior vena cava. Inferior vena cava collapse with sniff. Pericardium/Pleural No pericardial effusion. LVIDd: 4.1 cm IVSd: 0.93 cm Ao root diam: 2.8 cm LAV(MOD-bp): 31.3 ml LVIDs: 2.4 cm LVPWd: 0.84 cm Ao root area: 6.1 cm2 LAV(MOD-bp) Indexed: 18.5 ml/m2 RVDd: 2.2 cm FS: 42.3 % LA dimension: 2.9 cm LAV(MOD-sp2): 25.0 ml LAV(MOD-sp4): 33.3 ml LA A4 area: 14.4 cm2 RA A4 area: 10.5 cm2 MV E max contreras: Lat Peak E' Contreras: Med Peak E' Contreras: MV dec time: 46.8 cm/sec 11.1 cm/sec 9.3 cm/sec 0.33 sec MV A max contreras: 72.0 cm/sec MV E/A: 0.65 Ao V2 max: 127.5 cm/sec LV V1 max: 106.9 cm/sec PA V2 max: 122.5 cm/sec E/E' lat: 4.2 Ao max P.5 mmHg LV V1 max P.6 mmHg PA max P.0 mmHg E/E' med: 5.1 Interpretation Summary The estimated ejection fraction is 65 %. Trivial tricuspid valve insufficiency. Right ventricular systolic pressure estimated to be 11 mmHg. Stage 1 diastolic dysfunction. There is no comparison study available. This was essentially a normal study. _ Ordering Physician: Aicha Blackwood Performed By: Janie Chávez 11/14/13 1531 Date Rik Chaudhary MD CC: Aicha Blackwood DO Date Dictated: 11/14/13 0803 Date Transcribed: 11/14/13 1531 Manager Policy: Signed Aicha Blackwood DO Work Phone: Start: 11-14-2013 End: 11-14-2013 Gallbladder Procedure Note: See Note; NOTES: [facility] Imaging Services [address] [place], [place] [address] [place] [address] Ultrasound Report MR#: [id number] Acct: [id number] Name: ANTONIO DECKER Rep #: [id number] : 1945 F 68 From: Juanpablo Duran MD PCP: Aicha Blackwood DO Status: REG CLI Study: Gallbladder Date of Exam: 11/14/13 Exam# [id number] Ordering Dr: Aicha Blackwood DO STUDY: ABDOMINAL ULTRASOUND - RIGHT UPPER QUADRANT REASON FOR VISIT: Female, 68 years old. Epigastric pain. TECHNIQUE: Ultrasound evaluation of the right upper quadrant was performed with real-time and static aj-scale imaging. TECHNICAL QUALITY: Adequate. COMPARISON: None. FINDINGS: Liver: The liver measures 13.1 cm. There is normal echogenicity of the liver. The bile ducts are within normal limits. There is hepatic color flow. The direction of portal flow is hepatopetal. There is no demonstrated mass lesion. Gallbladder: Normal distended gallbladder. The gallbladder wall measures 2.5 mm. There is a negative sonographic Dutton's sign. There is no pericholecystic fluid. There are no gallstones. Common Bile Duct (C.B.D.): The common bile duct measures 2.9 mm. Pancreas: Normal size of the head, body and tail of the pancreas. There is increased echogenicity of the pancreas. There is no demonstrated pancreatic mass or cyst. Right Kidney: Normal size of the right kidney. The right kidney measures 10.1 cm x 3.9 cm x 4.7 cm. Normal renal cortex. The right cortex measures 1.9 cm. There is no demonstrated renal mass or cyst. There is no right hydronephrosis. IMPRESSION: Normal right upper quadrant ultrasound examination. Electronically Signed: Juanpablo Duran MD at 15:50 EDT Tel [phone], Service support [phone], CC: Aicha Blackwood DO Manager Policy: Signed Aicha Blackwood DO Work Phone: Start: 11-09-2013 End: 11-09-2013 Ecg routine ecg w/least 12 lds w/i&r [MEASUREMENTS ANALYSIS] Date of Test: 11/09/2013 10:24:43; Heart Rate: 83; OR Interval: 170; QRS: 88; QT Interval: 362; Corrected QT Interval (QTc): 402; P Wave [place]: 47; QRS Wave [place]: 44; T Wave [place]: 45; Blood Pressure: 122/72 [ECG DIAGNOSTIC STATEMENTS] Date of Test: 11/09/2013 10:24:43; Summary: Sinus Rhythm - Nonspecific T-abnormality. ABNORMAL Aicha Blackwood DO Work Phone: Comment on above: ekg showed normal si nus rhythym, normal axis, no acute st/t wave changes t wave inversion anteriorly no change Start: 07-19-2013 End: 07-19-2013 Bilat Scrn Digital & CAD Procedure Note: See Note; NOTES: [facility] Imaging Services [address] [place] [address] Breast Imaging Report MR#: [id number] Acct: [id number] Name: ANTONIO DECKER Rep #: [id number] : 1945 F 68 From: Juanpablo Duran MD PCP: Aicha Blackwood DO Status: REG CLI Exam# [id number] Ordering Dr: Aicha Blackwood DO MAMMOGRAPHY - BILATERAL SCREENING REASON FOR EXAM: Female, 68 years old. Routine annual screening examination. PERTINENT HISTORY: Non-contributory. TECHNIQUE: Digital examination. Mediolateral oblique (MLO) and craniocaudad (CC) views of both breasts were obtained. CAD: CAD was performed on this study. COMPARISON: Comparison is made with prior study dated July 18, 2012 and July 14, 2011. FINDINGS: The breast composition is heterogeneously dense - ranging from 51% to 75% of the breast tissue. There are no dominant masses or suspicious calcifications. No other significant abnormalities are identified. There has been no significant change since the prior study. IMPRESSION: Stable bilateral screening mammogram. Yearly follow-up recommended. (A) ASSESSMENT CATEGORY: BIRADS Category 2: Benign finding(s). A letter regarding these results will be sent to the patient by the facility within 30 days. Approximately 10% of breast cancers are not detected by mammography. A normal mammogram should not delay biopsy of a clinically suspicious abnormality. Electronically Signed: Juanpablo Duran MD at 8:55 EDT Tel [phone], Service support [phone], CC: Aicha Blackwood DO Manager Policy: Signed Aicha Blackwood DO Work Phone: Start: 01-02-2013 End: 01-02-2013 Hip min 2 Views Procedure Note: See Note; NOTES: [facility] Imaging Services [address] [place] [address] Radiology Report MR#: [id number] Acct: [id number] Name: ANTONIO DECKER Rep #: [id number] : 1945 F 68 From: Primo Manning DO PCP: Aicha Blackwood DO Status: REG CLI Study: Hip min 2 Views Date of Exam: 01/02/13 Exam# [id number] Ordering Dr: Aye Willard DO STUDY: X-RAY - LEFT HIP REASON FOR EXAM: Female, 68 years old. Pain after fall for 6 weeks. TECHNIQUE: 2 views of the hip. COMPARISON: None. FINDINGS: There is no acute fracture, dislocation or destructive osseous pathology. Normal femoral head, neck, intertrochanteric region and visualized proximal femur. Normal acetabulum. Normal hip joint. Normal visualized superior and inferior pubic rami and ischial tuberosities. There is no demonstrated soft tissue abnormality. IMPRESSION: No evidence of acute left hip abnormality. Signed: Primo Manning D.O. January 02, 2013 at 5:40:44 PM EDT [phone] Electronically Signed HH/HH If you are the referring physician and would like to consult with the radiologist who provided this interpretation, please contact Primo Manning D.O. at [phone]. If this radiologist is unavailable, you will be directed to another radiologist to assist. If you are a patient with a question regarding this report, please contact your referring physician directly. Professional Interpretation Provided By: [employer], Phone , These documents contain legally protected and confidential health information intended only for the use of the individual or entity named above. If you are not the intended recipient, you are hereby notified that any disclosure, copying, distribution, or other use of these documents is strictly prohibited. If you have received this information in error, please notify the sender immediately and arrange for the return or destruction of these documents. CC: Aicha Blackwood DO; Aye Willard DO Manager Policy: Signed Aye Willard DO Work Phone: Start: 12-22-2012 End: 12-22-2012 Shoulder min 2 Views Procedure Note: See Note; NOTES: [facility] Imaging Services [address] [place] [address] Radiology Report MR#: [id number] Acct: [id number] Name: ANTONIO DECKER Rep #: [id number] : 1945 F 67 From: Juanpablo Duran MD PCP: Aicha Blackwood DO Status: REG CLI Study: Shoulder min 2 Views Date of Exam: 12/22/12 Exam# [id number] Ordering Dr: Aicha Blackwood DO STUDY: X-RAY - RIGHT SHOULDER REASON FOR EXAM: Female, 67 years old. Shoulder pain. TECHNIQUE: 4 views of the shoulder. COMPARISON: None. 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 Normal acromion. Normal humeral head and visualized proximal humerus. The soft tissue structures are unremarkable. Normal visualized pulmonary apex. 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 Signed: Juanpablo Duran M.D. December 22, 2012 at 1:02:17 PM EDT [phone] Electronically Signed GP/GP If you are the referring physician and would like to consult with the radiologist who provided this interpretation, please contact Juanpablo Duran M.D. at [phone]. If this radiologist is unavailable, you will be directed to another radiologist to assist. If you are a patient with a question regarding this report, please contact your referring physician directly. Professional Interpretation Provided By: [employer], Phone , These documents contain legally protected and confidential health information intended only for the use of the individual or entity named above. If you are not the intended recipient, you are hereby notified that any disclosure, copying, distribution, or other use of these documents is strictly prohibited. If you have received this information in error, please notify the sender immediately and arrange for the return or destruction of these documents. CC: Aicha [employer] Manager Policy: Signed [facility] Work Phone: Bacteria identified in Urine by Culture Dr. Edwardo Petit Work Phone: Clostridium difficil e detection Dr. Edwardo Petit Work Phone: Investigation of transfusion reaction Dr. Edwardo Petti Work Phone: End: 12-24-2022 Laboratory test result abnormal Abnormal laboratory test [facility] Work Phone: Comment on above: repeat normal Laboratory test resu lt abnormal Abnormal laboratory test AichaClinkle Work Phone: Nasopharyngeal Culture Dr. Azalea Petit Work Phone: Urine culture Dr. Edwardo Petit Work Phone: Urine culture Dr. Edwardo Petit Work Phone: Urine culture Dr. Edwardo Petit Work Phone: Plan of Treatment Date Care Activity Detail Author Start: 01-05-2023 Procedure Education Eprescribe d prescriptions (G8553) [facility]; [facility] Work Phone: Start: 12-24-2022 Procedure Education Eprescribe d prescriptions (G8553) [facility]; [facility] Work Phone: Start: 11-24-2022 Iv infusion therapy/prophylaxis /dx 1st to 1 hr THER/PROPH/DIAG IV INF [facility] Start: 11-20-2021 Iv infusion therapy/prophylaxis /dx 1st to 1 hr THER/PROPH/DIAG IV INF [facility] Work Phone: Start: 06-06-2015 Urnls dip stick/tabl et reagent auto microscopy URINALYSIS, W/ MICRO (89110) [facility]; [facility] Work Phone: Start: 06-06-2015 Lipid panel LIPID PANEL (53147) [facility]; [facility] Work Phone: Start: 06-06-2015 25 hydroxy includes fractions if performed Vitamin D Hydroxy (85085) [facility]; [facility] Work Phone: Start: 06-06-2015 Blood count complete auto&auto difrntl wbc CBC W/AUTO DIFF WBC (71664) [facility]; [facility] Work Phone: Start: 06-06-2015 Comprehensive metabo lic panel METABOLIC PANEL, COMPREHENSIVE (46777) [facility]; [facility] Work Phone: Start: 12-25-2014 Procedure Education Eprescribe d prescriptions (G8553) [facility]; [facility] Work Phone: Start: 12-25-2014 Comprehensive metabo lic panel METABOLIC PANEL, COMPREHENSIVE (80089) [facility]; [facility] Work Phone: Start: 12-25-2014 25 hydroxy includes fractions if performed Vitamin D Hydroxy (17377) [facility]; [facility] Work Phone: Start: 12-18-2014 Procedure Education Eprescribe d prescriptions (G8553) [facility]; [facility] Work Phone: Start: 11-20-2014 Provider Instruction s for Treatment Follow up if no improvement or if symptoms worsen [facility]; [facility] Work Phone: Start: 11-04-2014 Procedure Education Eprescribe d prescriptions (G8553) [facility]; [facility] Work Phone: Start: 11-01-2014 Provider Instruction s for Treatment Follow up if no improvement or if symptoms worsen [facility]; [facility] Work Phone: Start: 09-04-2014 Procedure Education Eprescribe d prescriptions (G8553) [facility]; [facility] Work Phone: Start: 07-31-2014 Urnls dip stick/tabl et reagent auto microscopy URINALYSIS, W/ MICRO (34511) [facility]; [facility] Work Phone: Start: 07-31-2014 Blood count manual c ell count each CBC with auto diff (55862) [facility]; [facility] Work Phone: Start: 07-31-2014 Lipid panel LIPID PANEL (02099) [facility]; [facility] Work Phone: Start: 07-31-2014 Assay of thyroid stimulating hormone tsh TSH (32971) [facility]; [facility] Work Phone: Start: 07-31-2014 25 hydroxy includes fractions if performed Vitamin D Hydroxy (88159) [facility]; [facility] Work Phone: Start: 05-17-2014 Patient Education Anxiety: anxiety [facility]; [facility] Work Phone: Start: 05-17-2014 Procedure Education Eprescribe d prescriptions (G8553) [facility]; [facility] Work Phone: Start: 01-22-2014 Calcium total CALCIUM SERUM (54742) [facility]; [facility] Work Phone: Start: 01-22-2014 25 hydroxy includes fractions if performed Vitamin D Hydroxy (90562) [facility]; [facility] Work Phone: Start: 12-10-2013 Lipid panel LIPID PANEL (63413) [facility]; [facility] Work Phone: Start: 12-10-2013 25 hydroxy includes fractions if performed CALCIFEDIOL (23481) [facility]; [facility] Work Phone: Start: 11-09-2013 Patient Education Heart Palpit ations *: heart palpitations [facility]; [facility] Work Phone: Start: 11-09-2013 Procedure Education Eprescribe d prescriptions (G8553) [facility]; [facility] Work Phone: Start: 10-03-2013 Patient Education Dizziness *: dizzi ness [facility]; [facility] Work Phone: Start: 10-03-2013 Procedure Education Eprescribe d prescriptions (G8553) [facility]; [facility] Work Phone: Start: 07-19-2013 Iaadiadoo streptococ cus group a Rapid Strep Test, Office (19340) [facility]; [facility] Work Phone: Start: 06-27-2013 Provider Instruction s for Treatment Follow up in 3 weeks [facility]; [facility] Work Phone: Start: 05-09-2013 Provider Instruction s for Treatment [facility]; [facility] Work Phone: Start: 02-06-2013 Patient Education Allergic Rhi nitis *: allergies [facility]; [facility] Work Phone: Start: 11-02-2012 Provider Instruction s for Treatment [facility]; [facility] Work Phone: Start: 08-21-2012 Comprehensive metabo lic panel METABOLIC PANEL, COMPREHENSIVE (05321) [facility]; [facility] Work Phone: Start: 08-21-2012 Assay of thyroid stimulating hormone tsh TSH (43998) [facility]; [facility] Work Phone: Start: 08-21-2012 25 hydroxy includes fractions if performed Vitamin D Hydroxy (79611) [facility]; [facility] Work Phone: Start: 08-21-2012 Lipid panel LIPID PANEL (42775) [facility]; [facility] Work Phone: Start: 07-21-2012 Patient Education Osteoporosis in Women *: bone density [facility]; [facility] Work Phone: Start: 07-21-2012 Calcium urine quantitative timed specimen URINE CALCIUM PHILIPP TIMED 24 Hour (18607) [facility]; [facility] Work Phone: Start: 07-21-2012 Protein electrophore tic fractj&quantj serum [facility]; [facility] Work Phone: Start: 03-28-2012 Patient Education Osteoporosis in Women *: bone loss [facility]; [facility] Work Phone: Start: 02-25-2012 Assay of iron Iron (18560) [facility]; [facility] Work Phone: Start: 02-18-2012 Provider Instruction s for Treatment Follow up if no improvement or if symptoms worsen [facility]; [facility] Work Phone: Start: 12-13-2011 Provider Instruction s for Treatment [facility]; [facility] Work Phone: Start: 11-22-2011 Provider Instruction s for Treatment Follow up in 3 weeks [facility]; [facility] Work Phone: Start: 09-20-2011 Assay of thyroid stimulating hormone tsh TSH (98026) [facility] Work Phone: Start: 09-20-2011 25 hydroxy includes fractions if performed Vitamin D Hydroxy (07531) [facility]; [facility] Work Phone: Start: 09-20-2011 Lipid panel LIPID PANEL (41786) [facility]; [facility] Work Phone: Start: 09-20-2011 Patient Education Osteoporosis in Women *: bone loss [facility]; [facility] Work Phone: Start: 06-28-2011 Provider Instruction s for Treatment Follow up in 2 weeks [facility]; [facility] Work Phone: Start: 05-24-2011 Cul bact xcpt urine blood/stool aerobic isol RACHEL CULTURE-OTHER (20758) [facility]; [facility] Work Phone: Start: 05-24-2011 Iaadiadoo streptococ cus group a Rapid Strep Test, Office (87153) [facility]; [facility] Work Phone: Start: 05-24-2011 Provider Instruction s for Treatment [facility]; [facility] Work Phone: Start: 03-03-2011 Provider Instruction s for Treatment [facility]; [facility] Work Phone: Start: 03-03-2011 Comprehensive metabo lic panel METABOLIC PANEL, COMPREHENSIVE (22624) [facility]; [facility] Work Phone: Start: 03-03-2011 25 hydroxy includes fractions if performed Vitamin D Hydroxy (11296) [facility]; [facility] Work Phone: Start: 03-03-2011 Lipid panel LIPID PANEL (41402) [facility]; [facility] Work Phone: Start: 03-03-2011 Hpv, dna, amp probe HPV automatic (1 1175) [facility]; [facility] Work Phone: Start: 03-03-2011 Cytp cerv/vag auto t hin layer prep mnl screen Thin prep Pap (68843) [facility]; [facility] Work Phone: Start: 08-18-2010 Provider Instruction s for Treatment Diet, Exercise, and Wt loss [facility]; [facility] Work Phone: Start: 08-10-2010 Assay of thyroid stimulating hormone tsh TSH (THYROID STIMULATING HORMONE) (81431) [facility]; [facility] Work Phone: Start: 08-10-2010 Comprehensive metabo lic panel METABOLIC PANEL, COMPREHENSIVE (87422) [facility]; [facility] Work Phone: Start: 08-10-2010 Lipid panel LIPID PANEL (75279) [facility]; [facility] Work Phone: Start: 08-10-2010 25 hydroxy includes fractions if performed CALCIFEDIOL (34774) [facility]; [facility] Work Phone: Start: 05-12-2010 Assay of troponin quantitative Troponin I (38296) [facility]; [facility] Work Phone: Start: 05-12-2010 Creatine kinase mb fraction only CPK MB FRACTION (78151) [facility]; [facility] Work Phone: Start: 05-12-2010 Creatine kinase total CREATINE KINASE TOTAL (68924) [facility]; [facility] Work Phone: Start: 05-12-2010 C-reactive protein C-Reactive Protein (80011) [facility]; [facility] Work Phone: Start: 04-01-2010 Provider Instruction s for Treatment [facility]; [facility] Work Phone: Start: 03-02-2010 Provider Instruction s for Treatment Pap/Pelvic/Bimanual/Re ctal/Breast Exam was done. [facility]; [facility] Work Phone: Start: 03-02-2010 Cytp cerv/vag auto t hin layer prep mnl screen Thin prep Pap (24348) [facility]; [facility] Work Phone: Start: 03-02-2010 25 hydroxy includes fractions if performed Vitamin D Hydroxy (32239) [facility]; [facility] Work Phone: Start: 01-20-2010 Provider Instruction s for Treatment [facility]; [facility] Work Phone: Start: 12-23-2009 25 hydroxy includes fractions if performed CALCIFIDIOL (34719) VIT D 25 [facility]; [facility] Work Phone: Start: 09-17-2009 Provider Instruction s for Treatment *Antibiotic Usage Education - Female [facility]; [facility] Work Phone: Start: 09-17-2009 25 hydroxy includes fractions if performed Vitamin D Hydroxy (58790) [facility]; [facility] Work Phone: Start: 08-18-2009 Provider Instruction s for Treatment FOLLOW UP IN 3 WEEKS [facility]; [facility] Work Phone: Start: 05-21-2009 Comprehensive metabo lic panel METABOLIC PANEL, COMPREHENSIVE (35704) [facility]; [facility] Work Phone: Start: 05-21-2009 Lipid panel LIPID PANEL (41869) [facility]; [facility] Work Phone: Start: 05-21-2009 Blood count complete automated CBC (AUTO) (97266) [facility]; [facility] Work Phone: Start: 05-21-2009 Assay of thyroid stimulating hormone tsh TSH (56463) [facility]; [facility] Work Phone: Start: 05-21-2009 25 hydroxy includes fractions if performed Vitamin D Hydroxy (23930) [facility]; [facility] Work Phone: Start: 02-26-2009 Provider Instruction s for Treatment [facility]; [facility] Work Phone: Start: 02-26-2009 Cytp cerv/vag auto t hin layer prep mnl screen Thin prep Pap (24161) [facility]; [facility] Work Phone: Start: 12-03-2008 Provider Instruction s for Treatment [facility]; [facility] Work Phone: Start: 11-19-2008 Blood count manual c ell count each CBC WITH MANUAL DIFF (26968) [facility]; [facility] Work Phone: Start: 11-19-2008 Comprehensive metabo lic panel METABOLIC PANEL, COMPREHENSIVE (29719) [facility]; [facility] Work Phone: Start: 11-19-2008 25 hydroxy includes fractions if performed Vitamin D Hydroxy (35221) [facility]; [facility] Work Phone: Start: 10-02-2008 Provider Instruction s for Treatment Reviewed Lab:Insulin 2.3 to glucose 93 [facility]; [facility] Work Phone: Start: 09-24-2008 Glucose quantitative blood xcpt reagent strip GLUCOSE (84349) [facility]; [facility] Work Phone: Comment on above: Fasting Start: 09-24-2008 Assay of insulin total INSULIN, TOTA L (44575) [facility]; [facility] Work Phone: Start: 09-24-2008 Provider Instruction s for Treatment FOLLOW UP IN 1 WEEK [facility]; [facility] Work Phone: Start: 09-10-2008 Assay of thyroid stimulating hormone tsh TSH (38425) [facility]; [facility] Work Phone: Start: 09-10-2008 Blood count manual c ell count each CBC with manual diff (93992) [facility]; [facility] Work Phone: Start: 09-10-2008 Comprehensive metabo lic panel Metabolic Panel, Comprehensive (88903) [facility]; [facility] Work Phone: Start: 09-10-2008 Lipid panel Lipid Panel (97099) [facility]; [facility] Work Phone: Start: 09-10-[address] gtt 3 specimens GLUCOSE TOLERANCE TEST (GTT) 5 hour (50256) [facility]; [facility] Work Phone: Chiropractic manipulation [facility] Work Phone: Chiropractic manipulation [facility] Urine culture Urine Culture [facility] Work Phone: [facility] Work Phone[facility] Work Phone: [facility] Work Phone: [facility] Work Phone: [facility] Work Phone: [facility] Work Phone: [facility] Work Phone: [facility] Work Phone: [facility] Work Phone: [facility] Work Phone: [facility] Work Phone: [facility] Work Phone: [facility] Work Phone: [facility] Work Phone: [facility] Work Phone: [facility] Work Phone: [facility] Work Phone: [facility] Work Phone: [facility] Work Phone: [facility] Work Phone: [facility] Work Phone: [facility] Work Phone: [facility] Work Phone: [facility] Work Phone: [facility] Work Phone: [facility] Work Phone: [facility] Work Phone: [facility] Work Phone: [facility] Work Phone: [facility] Work Phone: [facility] Work Phone: [facility] Work Phone: [facility] Work Phone: Immunizations Immunization Date Immunization Notes Care Provider Fa [facility] 12-10-2022 respiratory syncytia l virus monoclonal antibody (palivizumab), intramuscular Aicha Fast DO Work Phone: [facility]; [facility] Work Phone: 12-19-2008 influenza, seasonal, injectable Aicha Fast DO Work Phone: [facility]; [facility] Work Phone: Comment on above: Lot #[id number]-left deltoidgiven by:[facility] 12-19-2008 pneumococcal polysaccharide vaccine, 23 valent Aicha Fast DO Work Phone: [facility]; [facility] Work Phone: Payers Date Payer Category Payer Self-pay [id number] 2024 Private Health Insurance [id number] 2024 Private Health Insurance 2024 Self-pay [id number] 2016 Unknown [id number] 2011 Medicare [id number] Medicare [id number] Unknown Medicare Unknown [id number] 2.16.8 40.1.161400.3.579.2.462 Unknown [id number] 2.16.8 40.1.955968.3.579.2.462 Unknown [id number] 2.16.8 40.1.666575.3.579.2.462 Unknown [id number] 2.16.8 40.1.875263.3.579.2.462 Unknown [id number] 2.16.8 40.1.520936.3.579.2.462 Unknown [id number] 2.16.8 40.1.973964.3.579.2.462 Unknown [id number] 2.16.8 40.1.646604.3.579.2.462 Unknown [id number] 2.16.8 40.1.500055.3.579.2.462 Unknown [id number] 2.16.8 40.1.713937.3.579.2.462 Unknown [id number] 2.16.8 40.1.965772.3.579.2.462 Unknown [id number] 2.16.8 40.1.390133.3.579.2.462 Unknown [id number] 2.16.8 40.1.013473.3.579.2.462 Unknown [id number] 2.16.8 40.1.847867.3.579.2.462 Unknown [id number] 2.16.8 40.1.934523.3.579.2.462 Unknown [id number] 2.16.8 40.1.125834.3.579.2.462 Unknown [id number] 2.16.8 40.1.667560.3.579.2.462 Unknown [id number] 2.16.8 40.1.716160.3.579.2.462 Unknown [id number] 2.16.8 40.1.428844.3.579.2.462 Unknown [id number] 2.16.8 40.1.252882.3.579.2.462 Unknown [id number] 2.16.8 40.1.510248.3.579.2.462 Unknown [id number] 2.16.8 40.1.073833.3.579.2.462 Unknown [id number] 2.16.8 40.1.616933.3.579.2.462 Unknown [id number] 2.16.8 40.1.248754.3.579.2.462 Unknown [id number] 2.16.8 40.1.224896.3.579.2.462 Unknown [id number] 2.16.8 40.1.758286.3.579.2.462 Unknown [id number] 2.16.8 40.1.424802.3.579.2.462 Unknown [id number] 2.16.8 40.1.969474.3.579.2.462 Unknown [id number] 2.16.8 40.1.958326.3.579.2.462 Unknown [id number] 2.16.8 40.1.230178.3.579.2.462 Unknown [id number] 2.16.8 40.1.353026.3.579.2.462 Unknown [id number] 2.16.8 40.1.168913.3.579.2.462 Unknown [id number] 2.16.8 40.1.952948.3.579.2.462 Social History Date Type Detail Facility Start: 06-29-2021 End: 01-24-2023 Tobacco smoking status TXIS Unknown if ever smoked [facility] Start: 1945 Sex Assigned At Female [facility] Alcohol Use Alcohol Use [facility] Work Phone: Comment on above: Weekly 2 coffee, tea QD smoked marijuana and took amphetamines in 20s 1-2 hrs. 5 X a wk, y oga, spinning, free weights and machines , heterosexua l Retired Tobacco Use: Tobacco Use: [facility] Work Phone: Comment on above: Remotely quit tobacc o use - 30 yrs ago07/05/11 Start: 03-15-2024 End: 10-08-2024 Tobacco smoking status NHIS Ex-smoker (finding) [facility] Start: 05-15-2024 End: 06-05-2024 Sex Female (finding) [facility] Sex Female [facility] Goals Date Patient Goal Desired Activity /State Mental Status Date Assessment Result Facility 11-24-2022 Cognitive function Voice/Name [facility] Work Phone: 11-20-2021 Cognitive function Voice/Name [facility] Work Phone: Clinical Notes 01-17-2024 to 12-24-2024 Note Date & Type Note Facility 12-24-2024 Progress note [facility] 11-26-2024 Progress note [facility] 11-19-2024 Discharge summary Note Date/Time November 19, 2024 7:00pm [facility] [address] [place] [address] [address] [place] [address] / REHABILITATION SERVICES DISCHARGE SUMMARY MR#: [id number] Acct: [id number] Name: ANTONIO DECKER Rep #: [id number] 2 : 1945 79 From: Adrianna [place] Referring Dr.: Dr. Aicha Blackwood DO Status: REG RCR Insurance: MEDICARE PART A B [employer] Discharge Summary D/C summary: It has been my pleasure to treat ANTONIO DECKER referred by Dr. Aicha Blackwood DO, with the diagnosis of Balance Issues for a total of 9 visit(s). Discharge Date: 11/19/24 Please see the following information for a summary of their discharge status. Subjective Subjective: Pt reports that she is alot better. She has not felt herself veering at all. She says she wants to hold on with steps still and I did encourage her to do that. Pain LBP: Pain Intensity (Out of 10): 1 Objective Objective/Function: FGA 25 CATSIB 120/120 Gait: amb with no obvious veering Goals Goal 1:: I HEP Goal Progress: Goal Met Goal 2:: Be able to walk with no veering with gait 100 feet Goal Progress: Goal Met Goal 3:: Increase balance with head turns and improve overall balance on FGA (score was 21 at eval). Goal Progress: Goal Met Goal 4:: Be able to walk on grass with horizontal and vertical head turns without LOB Goal Progress: Goal Met Goal 5:: Increase vestibular input on blue foam (increase CATSIB and score was 85 on eval) Goal Progress: Goal Met Plan Plan: DC PT to HEP D/C Information Discharge Comments: DC PT to HEP d/c sentence: If there are questions or concerns regarding this patient's physical therapy, please feel free to call me at [phone]. Thank you for the referral of thispatient. Sincerely, IRENA Cotton Balance/Gait/Functional tests Balance/Special Test Scores Functional Gait Assessment Score: 25 % Disability: 16.6700 CATSIB Score (Max score 120 seconds): 120 Dizziness Score: 12 Lower Extremity Functional Score: 55 <Electronically signed by Adrianna Oliva MPT> 11/19/24 1421 CC: Dr. Aicha Blackwood DO ~ Signed [facility] Work Phone: 1(688) 344-333009-15-2025 Discharge summary [facility] [address] [place] [address] [address] [place] [address] / REHABILITATION SERVICES DISCHARGE SUMMARY MR#: [id number] Acct: [id number] Name: ANTONIO DECKER Rep #: [id number] 2 : 1945 79 From: Adrianna Oliva MP T Referring DrFrankie: Dr. Aicha Blackwood DO Status: REG RCR Insurance: MEDICARE PART A B [employer] Discharge Summary D/C summary: It has been my pleasure to treat ANTONIO DECKER referred by Dr. Aicha Blackwood DO, with the diagnosis of Balance Issues for a total of 9 visit(s). Discharge Date: 11/19/24 Please see the following information for a summary of their discharge status. Subjective Subjective: Pt reports that she is alot better. She has not felt herself veering at all. She says she wants to hold on with steps still and I did encourage her to do that. Pain LBP: Pain Intensity (Out of 10): 1 Objective Objective/Function: FGA 25 CATSIB 120/120 Gait: amb with no obvious veering Goals Goal 1:: I HEP Goal Progress: Goal Met Goal 2:: Be able to walk with no veering with gait 100 feet Goal Progress: Goal Met Goal 3:: Increase balance with head turns and improve overall balance on FGA (score was 21 at eval). Goal Progress: Goal Met Goal 4:: Be able to walk on grass with horizontal and vertical head turns without LOB Goal Progress: Goal Met Goal 5:: Increase vestibular input on blue foam (increase CATSIB and score was 85 on eval) Goal Progress: Goal Met Plan Plan: DC PT to HEP D/C Information Discharge Comments: DC PT to HEP d/c sentence: If there are questions or concerns regarding this patient's physical therapy, please feel free to call me at [phone]. Thank you for the referral of thispatient. Sincerely, Adrianna Oliva, MPT Balance/Gait/Functional tests Balance/Special Test Scores Functional Gait Assessment Score: 25 % Disability: 16.6700 CATSIB Score (Max score 120 seconds): 120 Dizziness Score: 12 Lower Extremity Functional Score: 55 11/19/24 1421 CC: Dr. 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 acute October 08 12:57pm Segmental and somatic dysfunction of cervical region acute A ugust 2024 12:57pm Segmental and somatic dysfunction of lumbar region acute Oct ust 2024 12:57pm Segmental and somatic dysfunction of pelvic region acute Oct ust 2024 12:57pm Segmental and somatic dysfunction of thoracic region acute A ugust 2024 12:57pm 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 October 082024 12:57pm Urinary tract infection acute A ugust 2024 12:58pm Vaginal atrophy acute October 172024 12:58pm Segmental and somatic dysfunction of cervical region acute A ugust 2024 12:58pm Segmental and somatic dysfunction of lumbar region acute Aug ust 2024 12:58pm Segmental and somatic dysfunction of pelvic region acute Aug ust 2024 12:58pm Segmental and somatic dysfunction of thoracic region acute A ugust 2024 12:58pm 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 October 062024 12:58pm Segmental and somatic dysfunction of lumbar region acute Sep tember 2024 12:58pm Segmental and somatic dysfunction of pelvic region acute Sep tember 2024 12:58pm Segmental and somatic dysfunction of thoracic region acute S eptember 2024 12:58pm Back pain chronic November 12:58pm 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 Septembe r 2024 12:58pm Segmental and somatic dysfunction of cervical region acute O ctober 2024 11:29am Segmental and somatic dysfunction of lumbar region acute Dec gagandeep 2024 11:29am Segmental and somatic dysfunction of pelvic region acute Dec gagandeep 2024 11:29am Segmental and somatic dysfunction of thoracic region acute O ctober 2024 11:29am 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 December 24, 2024 11:29am [facility] Work Phone: 1(465) 430-900906-05-2025 Evaluation note* Diagnosis Onset Date Resolution Status Admit Date Segmental and somatic dysfunction of lumbar region acute Aug 9:30am Segmental and somatic dysfunction of pelvic region acute Aug 9:30am Segmental and somatic dysfunction of thoracic region acute J une 2024 9:30am Back pain chronic August 09, 2024 9:30am DDD (degenerative disc disease) chronic August 09, 2024 9 :30am 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 August 9:30am Segmental and somatic dysfunction of cervical region acute J [facility] 2024 2:27pm Segmental and somatic dysfunction of lumbar region acute Joey e 2024 2:27pm Segmental and somatic dysfunction of pelvic region acute Joey e 2024 2:27pm Segmental and somatic dysfunction of thoracic region acute J [facility] 2024 2:27pm Back pain chronic August 23 2:27pm DDD (degenerative disc disease) chronic August 23, 2024 2:27pm Segmental and somatic dysfunction of cervical region acute J [facility] 2024 11:30am Segmental and somatic dysfunction of lumbar region acute Joey e 2024 11:30am Segmental and somatic dysfunction of pelvic region acute Joey e 2024 11:30am Segmental and somatic dysfunction of thoracic region acute J [facility] 2024 11:30am Back pain chronic August 28 11:30am 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 August 11:30am Segmental and somatic dysfunction of cervical region acute [facility] 2024 11:01am Segmental and somatic dysfunction of lumbar region acute Sep 11:01am Segmental and somatic dysfunction of pelvic region acute Sep 11:01am Segmental and somatic dysfunction of thoracic region acute [facility] 2024 11:01am Back pain chronic September 06, 2024 11:01am DDD (degenerative disc disease) chronic September 06, 2024 1 1:01am 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 September 11:01am Segmental and somatic dysfunction of cervical region acute [facility] 2024 9:26am Segmental and somatic dysfunction of lumbar region acute Sep 9:26am Segmental and somatic dysfunction of pelvic region acute Sep 9:26am Segmental and somatic dysfunction of thoracic region acute [facility] 2024 9:26am 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 September 9:26am 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 acute October 08 12:57pm Segmental and somatic dysfunction of cervical region acute A ugust 2024 12:57pm Segmental and somatic dysfunction of lumbar region acute Aug ust 2024 12:57pm Segmental and somatic dysfunction of pelvic region acute Aug ust 2024 12:57pm Segmental and somatic dysfunction of thoracic region acute A ugust 2024 12:57pm 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 October 082024 12:57pm Urinary tract infection acute A ugust 2024 12:58pm Vaginal atrophy acute October 172024 12:58pm Segmental and somatic dysfunction of cervical region acute A ugust 2024 12:58pm Segmental and somatic dysfunction of lumbar region acute Aug ust 2024 12:58pm Segmental and somatic dysfunction of pelvic region acute Aug ust 2024 12:58pm Segmental and somatic dysfunction of thoracic region acute A ugust 2024 12:58pm 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 October 062024 12:58pm Segmental and somatic dysfunction of lumbar region acute Sep tember 2024 12:58pm Segmental and somatic dysfunction of pelvic region acute Sep tember 2024 12:58pm Segmental and somatic dysfunction of thoracic region acute S eptember 2024 12:58pm Back pain chronic November 12:58pm 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 Septembe r 2024 12:58pm [facility] Work Phone: 1(148) 225-143805-27-2025 Evaluation note* Diagnosis Onset Date Resolution Status Admit Date Segmental and somatic dysfunction of cervical region acute M ay 2024 11:27am Segmental and somatic dysfunction of lumbar region acute July 31, 2024 11:27am Segmental and somatic dysfunction of pelvic region acute July 31, 2024 11:27am Segmental and somatic dysfunction of thoracic region acute M ay 2024 11:27am Back pain chronic July 31, 2024 11:27am 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 July 11:27am Segmental and somatic dysfunction of lumbar region acute Aug 9:30am Segmental and somatic dysfunction of pelvic region acute Aug 9:30am Segmental and somatic dysfunction of thoracic region acute J une 2024 9:30am Back pain chronic August 09, 2024 9:30am 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 09, 2024 9:30am 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 August 9:30am Segmental and somatic dysfunction of cervical region acute J une 2024 2:27pm Segmental and somatic dysfunction of lumbar region acute Joey e 2024 2:27pm Segmental and somatic dysfunction of pelvic region acute Aug 2:27pm Segmental and somatic dysfunction of thoracic region acute J une 2024 2:27pm Back pain chronic August 23 2:27pm 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 23, 2024 2:27pm Segmental and somatic dysfunction of cervical region acute J [facility] 2024 11:30am Segmental and somatic dysfunction of lumbar region acute Joey e 2024 11:30am Segmental and somatic dysfunction of pelvic region acute Aug 11:30am Segmental and somatic dysfunction of thoracic region acute J [facility] 2024 11:30am Back pain chronic August 28 11:30am 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 August 11:30am Segmental and somatic dysfunction of cervical region acute J [email or web address] 11:01am Segmental and somatic dysfunction of lumbar region acute Sep 11:01am Segmental and somatic dysfunction of pelvic region acute Sep 11:01am Segmental and somatic dysfunction of thoracic region acute J [email or web address] 11:01am Back pain chronic September 06, 2024 11:01am 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 06, 2024 11:01am 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 September 11:01am Segmental and somatic dysfunction of cervical region acute J 2024 9:26am Segmental and somatic dysfunction of lumbar region acute Sep 9:26am Segmental and somatic dysfunction of pelvic region acute Sep 9:26am Segmental and somatic dysfunction of thoracic region acute J [email or web address] 9:26am 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 September 9:26am 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 acute October 08 12:57pm Segmental and somatic dysfunction of cervical region acute A ugust 2024 12:57pm Segmental and somatic dysfunction of lumbar region acute Aug ust 2024 12:57pm Segmental and somatic dysfunction of pelvic region acute Aug ust 2024 12:57pm Segmental and somatic dysfunction of thoracic region acute A ugust 2024 12:57pm 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 October 082024 12:57pm Urinary tract infection acute A ugust 2024 12:58pm Vaginal atrophy acute October 172024 12:58pm Segmental and somatic dysfunction of cervical region acute A ugust 2024 12:58pm Segmental and somatic dysfunction of lumbar region acute Aug ust 2024 12:58pm Segmental and somatic dysfunction of pelvic region acute Oct ust 2024 12:58pm Segmental and somatic dysfunction of thoracic region acute A ugust 2024 12:58pm 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 October 062024 12:58pm [facility] Work Phone: 1(205) 340-356504-28-2025 Evaluation note* Diagnosis Onset Date Resolution Status Admit Date Segmental and somatic dysfunction of cervical region acute A pril 2024 10:56am Segmental and somatic dysfunction of lumbar region acute Apr 2024 10:56am Segmental and somatic dysfunction of pelvic region acute Apr 2024 10:56am Segmental and somatic dysfunction of thoracic region acute A pril 2024 10:56am Back pain chronic July 02 10:56am 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 July 022024 10:56am Segmental and somatic dysfunction of cervical region acute M ay 2024 11:27am Segmental and somatic dysfunction of lumbar region acute July 31, 2024 11:27am Segmental and somatic dysfunction of pelvic region acute July 31, 2024 11:27am Segmental and somatic dysfunction of thoracic region acute M ay 2024 11:27am Back pain chronic July 31, 2024 11:27am 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 July 11:27am Segmental and somatic dysfunction of lumbar region acute Aug 9:30am Segmental and somatic dysfunction of pelvic region acute Aug 9:30am Segmental and somatic dysfunction of thoracic region acute J une 2024 9:30am Back pain chronic August 09, 2024 9:30am 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 09, 2024 9:30am 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 August 9:30am Segmental and somatic dysfunction of cervical region acute J une 2024 2:27pm Segmental and somatic dysfunction of lumbar region acute Joey e 2024 2:27pm Segmental and somatic dysfunction of pelvic region acute Joey e 2024 2:27pm Segmental and somatic dysfunction of thoracic region acute J une 2024 2:27pm Back pain chronic August 23 2:27pm 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 23, 2024 2:27pm Segmental and somatic dysfunction of cervical region acute J une 2024 11:30am Segmental and somatic dysfunction of lumbar region acute Aug 11:30am Segmental and somatic dysfunction of pelvic region acute Aug 11:30am Segmental and somatic dysfunction of thoracic region acute J une 2024 11:30am Back pain chronic August 28 11:30am 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 August 11:30am Segmental and somatic dysfunction of cervical region acute J [email or web address] 11:01am Segmental and somatic dysfunction of lumbar region acute Sep 11:01am Segmental and somatic dysfunction of pelvic region acute Sep 11:01am Segmental and somatic dysfunction of thoracic region acute J [email or web address] 11:01am Back pain chronic September 06, 2024 11:01am 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 06, 2024 11:01am 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 September 11:01am Segmental and somatic dysfunction of cervical region acute J evin 2024 9:26am Segmental and somatic dysfunction of lumbar region acute Sep 9:26am Segmental and somatic dysfunction of pelvic region acute Sep 9:26am Segmental and somatic dysfunction of thoracic region acute J evin 2024 9:26am 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 September 9:26am Segmental and somatic dysfunction of cervical region acute A ugust 2024 12:57pm Segmental and somatic dysfunction of lumbar region acute Aug ust 2024 12:57pm Segmental and somatic dysfunction of pelvic region acute Oct ust 2024 12:57pm Segmental and somatic dysfunction of thoracic region acute A ugust 2024 12:57pm 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 October 08, 2024 12:57pm 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 October 082024 12:57pm [facility] Work Phone: 1(608) 339-640804-28-2025 Evaluation note* Diagnosis Onset Date Resolution Status Admit Date Segmental and somatic dysfunction of cervical region acute A pril 2024 10:56am Segmental and somatic dysfunction of lumbar region acute Apr il 2024 10:56am Segmental and somatic dysfunction of pelvic region acute Apr il 2024 10:56am Segmental and somatic dysfunction of thoracic region acute A pril 2024 10:56am Back pain chronic July 02 10:56am 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 July 022024 10:56am Segmental and somatic dysfunction of cervical region acute M 2024 11:27am Segmental and somatic dysfunction of lumbar region acute July 31, 2024 11:27am Segmental and somatic dysfunction of pelvic region acute July 31, 2024 11:27am Segmental and somatic dysfunction of thoracic region acute M 2024 11:27am Back pain chronic July 31, 2024 11:27am 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 July 11:27am Segmental and somatic dysfunction of lumbar region acute Joey e 2024 9:30am Segmental and somatic dysfunction of pelvic region acute Aug 9:30am Segmental and somatic dysfunction of thoracic region acute J une 2024 9:30am Back pain chronic August 09, 2024 9:30am 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 09, 2024 9:30am 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 August 9:30am Segmental and somatic dysfunction of cervical region acute J [facility] 2024 2:27pm Segmental and somatic dysfunction of lumbar region acute Joey e 2024 2:27pm Segmental and somatic dysfunction of pelvic region acute Joey e 2024 2:27pm Segmental and somatic dysfunction of thoracic region acute J [facility] 2024 2:27pm Back pain chronic August 23 2:27pm 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 23, 2024 2:27pm Segmental and somatic dysfunction of cervical region acute J [facility] 2024 11:30am Segmental and somatic dysfunction of lumbar region acute Aug 11:30am Segmental and somatic dysfunction of pelvic region acute Aug 11:30am Segmental and somatic dysfunction of thoracic region acute J [facility] 2024 11:30am Back pain chronic August 28 11:30am 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 August 11:30am Segmental and somatic dysfunction of cervical region acute J [email or web address] 11:01am Segmental and somatic dysfunction of lumbar region acute Sep 11:01am Segmental and somatic dysfunction of pelvic region acute Sep 11:01am Segmental and somatic dysfunction of thoracic region acute J [email or web address] 11:01am Back pain chronic September 06, 2024 11:01am 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 06, 2024 11:01am 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 September 11:01am Segmental and somatic dysfunction of cervical region acute J 2024 9:26am Segmental and somatic dysfunction of lumbar region acute Sep 9:26am Segmental and somatic dysfunction of pelvic region acute Sep 9:26am Segmental and somatic dysfunction of thoracic region acute J 2024 9:26am 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 September 9:26am 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 acute October 08 12:57pm Segmental and somatic dysfunction of cervical region acute A ugust 2024 12:57pm Segmental and somatic dysfunction of lumbar region acute Aug ust 2024 12:57pm Segmental and somatic dysfunction of pelvic region acute Aug ust 2024 12:57pm Segmental and somatic dysfunction of thoracic region acute A ugust 2024 12:57pm 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 October 082024 12:57pm [facility] [employer] Work Phone: 1(317) 652-417504-28-2025 Evaluation note* Diagnosis Onset Date Resolution Status Admit Date Segmental and somatic dysfunction of cervical region acute A pril 2024 10:56am Segmental and somatic dysfunction of lumbar region acute Apr il 2024 10:56am Segmental and somatic dysfunction of pelvic region acute Apr il 2024 10:56am Segmental and somatic dysfunction of thoracic region acute A pril 2024 10:56am Back pain chronic July 02 10:56am 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 July 022024 10:56am Segmental and somatic dysfunction of cervical region acute M ay 2024 11:27am Segmental and somatic dysfunction of lumbar region acute July 31, 2024 11:27am Segmental and somatic dysfunction of pelvic region acute July 31, 2024 11:27am Segmental and somatic dysfunction of thoracic region acute M ay 2024 11:27am Back pain chronic July 31, 2024 11:27am 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 July 11:27am Segmental and somatic dysfunction of lumbar region acute Aug 9:30am Segmental and somatic dysfunction of pelvic region acute Aug 9:30am Segmental and somatic dysfunction of thoracic region acute J une 2024 9:30am Back pain chronic August 09, 2024 9:30am 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 09, 2024 9:30am 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 August 9:30am Segmental and somatic dysfunction of cervical region acute J une 2024 2:27pm Segmental and somatic dysfunction of lumbar region acute Joey e 2024 2:27pm Segmental and somatic dysfunction of pelvic region acute Joey e 2024 2:27pm Segmental and somatic dysfunction of thoracic region acute J une 2024 2:27pm Back pain chronic August 23 2:27pm 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 23, 2024 2:27pm Segmental and somatic dysfunction of cervical region acute J [facility] 2024 11:30am Segmental and somatic dysfunction of lumbar region acute Aug 11:30am Segmental and somatic dysfunction of pelvic region acute Aug 11:30am Segmental and somatic dysfunction of thoracic region acute J [facility] 2024 11:30am Back pain chronic August 28 11:30am 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 August 11:30am Segmental and somatic dysfunction of cervical region acute J [email or web address] 11:01am Segmental and somatic dysfunction of lumbar region acute Sep 11:01am Segmental and somatic dysfunction of pelvic region acute Sep 11:01am Segmental and somatic dysfunction of thoracic region acute [facility]2024 11:01am Back pain chronic September 06, 2024 11:01am 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 06, 2024 11:01am 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 September 11:01am Segmental and somatic dysfunction of cervical region acute [email or web address] 9:26am Segmental and somatic dysfunction of lumbar region acute Sep 9:26am Segmental and somatic dysfunction of pelvic region acute Sep 9:26am Segmental and somatic dysfunction of thoracic region acute evin2024 9:26am 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 September 9:26am 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 acute October 08 12:57pm Segmental and somatic dysfunction of cervical region acute A ugust 2024 12:57pm Segmental and somatic dysfunction of lumbar region acute Aug ust 2024 12:57pm Segmental and somatic dysfunction of pelvic region acute Oct us2024 12:57pm Segmental and somatic dysfunction of thoracic region acute A ugust 2024 12:57pm 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 October 082024 12:57pm Urinary tract infection acute A ugust 2024 12:58pm Vaginal atrophy acute October 172024 12:58pm Segmental and somatic dysfunction of cervical region acute A ugust 2024 12:58pm Segmental and somatic dysfunction of lumbar region acute Aug ust 2024 12:58pm Segmental and somatic dysfunction of pelvic region acute Aug ust 2024 12:58pm Segmental and somatic dysfunction of thoracic region acute A ugust 2024 12:58pm 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 2024 11:00am Segmental and somatic dysfunction of lumbar region acute [facility] 2024 11:00am Segmental and somatic dysfunction of pelvic region acute [facility] 2024 11:00am Segmental and somatic dysfunction of thoracic region acute 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 July 022024 10:56am Segmental and somatic dysfunction of cervical region acute [facility] 2024 11:27am Segmental and somatic dysfunction of lumbar region acute July 31, 2024 11:27am Segmental and somatic dysfunction of pelvic region acute July 31, 2024 11:27am Segmental and somatic dysfunction of thoracic region acute [facility] 2024 11:27am Back pain chronic July 31, 2024 11:27am 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 July 11:27am Segmental and somatic dysfunction of lumbar region acute Joey e 2024 9:30am Segmental and somatic dysfunction of pelvic region acute Joey 2024 9:30am Segmental and somatic dysfunction of thoracic region acute J une 2024 9:30am Back pain chronic August 09, 2024 9:30am 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 09, 2024 9:30am 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 August 9:30am Segmental and somatic dysfunction of cervical region acute J une 2024 2:27pm Segmental and somatic dysfunction of lumbar region acute Joey e 2024 2:27pm Segmental and somatic dysfunction of pelvic region acute Joey e 2024 2:27pm Segmental and somatic dysfunction of thoracic region acute J une 2024 2:27pm Back pain chronic August 23 2:27pm 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 23, 2024 2:27pm Segmental and somatic dysfunction of cervical region acute J une 2024 11:30am Segmental and somatic dysfunction of lumbar region acute Joey e 2024 11:30am Segmental and somatic dysfunction of pelvic region acute Joey e 2024 11:30am Segmental and somatic dysfunction of thoracic region acute J une 2024 11:30am Back pain chronic August 28 11:30am 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 August 11:30am Segmental and somatic dysfunction of cervical region acute J [email or web address] 11:01am Segmental and somatic dysfunction of lumbar region acute Sep 11:01am Segmental and somatic dysfunction of pelvic region acute Sep 11:01am Segmental and somatic dysfunction of thoracic region acute J [email or web address] 11:01am 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 06, 2024 11:01am 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 September 11:01am [facility] Work Phone: 1(889) 279-752503-31-2025 Evaluation note* Diagnosis Onset Date Resolution Status Admit Date Segmental and somatic dysfunction of cervical region acute M arch 2024 11:00am Segmental and somatic dysfunction of lumbar region acute Mar ch 2024 11:00am Segmental and somatic dysfunction of pelvic region acute Mar 2024 11:00am Segmental and somatic dysfunction of thoracic region acute M arch 2024 11:00am Back pain chronic June 04 11:00am 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 June 042024 11:00am Segmental and somatic dysfunction of cervical region acute A pril 2024 10:56am Segmental and somatic dysfunction of lumbar region acute Apr il 2024 10:56am Segmental and somatic dysfunction of pelvic region acute Apr il 2024 10:56am Segmental and somatic dysfunction of thoracic region acute A pril 2024 10:56am Back pain chronic July 02 10:56am 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 July 022024 10:56am Segmental and somatic dysfunction of cervical region acute M ay 2024 11:27am Segmental and somatic dysfunction of lumbar region acute July 31, 2024 11:27am Segmental and somatic dysfunction of pelvic region acute July 31, 2024 11:27am Segmental and somatic dysfunction of thoracic region acute M ay 2024 11:27am Back pain chronic July 31, 2024 11:27am 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 July 11:27am Segmental and somatic dysfunction of lumbar region acute Joey e 2024 9:30am Segmental and somatic dysfunction of pelvic region acute Aug 9:30am Segmental and somatic dysfunction of thoracic region acute J une 2024 9:30am Back pain chronic August 09, 2024 9:30am 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 09, 2024 9:30am 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 August 9:30am Segmental and somatic dysfunction of cervical region acute J une 2024 2:27pm Segmental and somatic dysfunction of lumbar region acute Joey e 2024 2:27pm Segmental and somatic dysfunction of pelvic region acute Joey e 2024 2:27pm Segmental and somatic dysfunction of thoracic region acute J une 2024 2:27pm Back pain chronic August 23 2:27pm 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 23, 2024 2:27pm Segmental and somatic dysfunction of cervical region acute J une 2024 11:30am Segmental and somatic dysfunction of lumbar region acute Joey e 2024 11:30am Segmental and somatic dysfunction of pelvic region acute Joey 2024 11:30am Segmental and somatic dysfunction of thoracic region acute J une 2024 11:30am Back pain chronic August 28 11:30am 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 August 11:30am Segmental and somatic dysfunction of cervical region acute J [email or web address] 11:01am Segmental and somatic dysfunction of lumbar region acute Sep 11:01am Segmental and somatic dysfunction of pelvic region acute Sep 11:01am Segmental and somatic dysfunction of thoracic region acute J [email or web address] 11:01am Back pain chronic September 06, 2024 11:01am 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 2024 11:00am Segmental and somatic dysfunction of lumbar region acute [facility] 2024 11:00am Segmental and somatic dysfunction of pelvic region acute [facility] 2024 11:00am Segmental and somatic dysfunction of thoracic region acute 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 July 022024 10:56am Segmental and somatic dysfunction of cervical region acute M ay 2024 11:27am Segmental and somatic dysfunction of lumbar region acute July 31, 2024 11:27am Segmental and somatic dysfunction of pelvic region acute July 31, 2024 11:27am Segmental and somatic dysfunction of thoracic region acute M 2024 11:27am Back pain chronic July 31, 2024 11:27am 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 July 11:27am Segmental and somatic dysfunction of lumbar region acute Joey e 2024 9:30am Segmental and somatic dysfunction of pelvic region acute Joey e 2024 9:30am Segmental and somatic dysfunction of thoracic region acute J une 2024 9:30am Back pain chronic August 09, 2024 9:30am 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 09, 2024 9:30am 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 August 9:30am Segmental and somatic dysfunction of cervical region acute J une 2024 2:27pm Segmental and somatic dysfunction of lumbar region acute Joey e 2024 2:27pm Segmental and somatic dysfunction of pelvic region acute Joey e 2024 2:27pm Segmental and somatic dysfunction of thoracic region acute J une 2024 2:27pm Back pain chronic August 23 2:27pm 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 23, 2024 2:27pm Segmental and somatic dysfunction of cervical region acute J une 2024 11:30am Segmental and somatic dysfunction of lumbar region acute Joey e 2024 11:30am Segmental and somatic dysfunction of pelvic region acute Joye e 2024 11:30am Segmental and somatic dysfunction of thoracic region acute J une 2024 11:30am Back pain chronic August 28 11:30am 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 August 11:30am Segmental and somatic dysfunction of cervical region acute J vein2024 11:01am Segmental and somatic dysfunction of lumbar region acute Sep 11:01am Segmental and somatic dysfunction of pelvic region acute Sep 11:01am Segmental and somatic dysfunction of thoracic region acute J evin2024 11:01am Back pain chronic September 06, 2024 11:01am 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 06, 2024 11:01am 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 September 11:01am Segmental and somatic dysfunction of cervical region acute J [id number] 9:26am Segmental and somatic dysfunction of lumbar region acute Sep 9:26am Segmental and somatic dysfunction of pelvic region acute Sep 9:26am Segmental and somatic dysfunction of thoracic region acute J evin 2024 9:26am 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 September 9:26am [place] [employer] Work Phone: 1(854) 719-100502-24-2025 Evaluation note* Diagnosis Onset Date Resolution Status Admit Date Segmental and somatic dysfunction of cervical region acute F ebruary 2024 1:27pm Segmental and somatic dysfunction of lumbar region acute Feb ruary 2024 1:27pm Segmental and somatic dysfunction of pelvic region acute Feb ruary 2024 1:27pm Segmental and somatic dysfunction of thoracic region acute F ebruary 2024 1:27pm 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 April 30, 2024 1:27pm Back pain acute June 04 11:00am Segmental and somatic dysfunction of cervical region acute arch 2024 11:00am Segmental and somatic dysfunction of lumbar region acute [facility] 2024 11:00am Segmental and somatic dysfunction of pelvic region acute [facility] 2024 11:00am Segmental and somatic dysfunction of thoracic region acute M arch 2024 11:00am 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 June [id number] 11:00am Back pain acute July 02 10:56am Segmental and somatic dysfunction of cervical region acute A pril 2024 10:56am Segmental and somatic dysfunction of lumbar region acute Apr il 2024 10:56am Segmental and somatic dysfunction of pelvic region acute Apr il 2024 10:56am Segmental and somatic dysfunction of thoracic region acute A pril 2024 10:56am 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 July 022024 10:56am Back pain acute July 31, 2024 11:27am Segmental and somatic dysfunction of cervical region acute M 2024 11:27am Segmental and somatic dysfunction of lumbar region acute July 31, 2024 11:27am Segmental and somatic dysfunction of pelvic region acute July 31, 2024 11:27am Segmental and somatic dysfunction of thoracic region acute M 2024 11:27am 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 July 11:27am [facility] Work Phone: 1(574) 150-529302-24-2025 Evaluation note* Diagnosis Onset Date Resolution Status Admit Date Segmental and somatic dysfunction of cervical region acute F ebruary 2024 1:27pm Segmental and somatic dysfunction of lumbar region acute Feb ruary 2024 1:27pm Segmental and somatic dysfunction of pelvic region acute Feb ruary 2024 1:27pm Segmental and somatic dysfunction of thoracic region acute F ebruary 2024 1:27pm 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 2024 11:00am Segmental and somatic dysfunction of lumbar region acute [facility] 2024 11:00am Segmental and somatic dysfunction of pelvic region acute [facility] 2024 11:00am Segmental and somatic dysfunction of thoracic region acute 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 July 022024 10:56am Back pain acute July 31, 2024 11:27am Segmental and somatic dysfunction of cervical region acute M ay 2024 11:27am Segmental and somatic dysfunction of lumbar region acute July 31, 2024 11:27am Segmental and somatic dysfunction of pelvic region acute July 31, 2024 11:27am Segmental and somatic dysfunction of thoracic region acute M ay 2024 11:27am 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 July 11:27am Segmental and somatic dysfunction of cervical region acute J une 2024 9:30am Segmental and somatic dysfunction of lumbar region acute Joey e 2024 9:30am Segmental and somatic dysfunction of pelvic region acute Joey e 2024 9:30am Segmental and somatic dysfunction of thoracic region acute J une 2024 9:30am 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 09, 2024 9:30am 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 August 9:30am [place] [employer] Work Phone: 1(345) 115-453402-24-2025 Evaluation note* Diagnosis Onset Date Resolution Status Admit Date Segmental and somatic dysfunction of cervical region acute F ebruary 2024 1:27pm Segmental and somatic dysfunction of lumbar region acute Feb ruary 2024 1:27pm Segmental and somatic dysfunction of pelvic region acute Feb ruary 2024 1:27pm Segmental and somatic dysfunction of thoracic region acute F ebruary 2024 1:27pm 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 April 30, 2024 1:27pm Back pain acute June 04 11:00am Segmental and somatic dysfunction of cervical region acute M arch 2024 11:00am Segmental and somatic dysfunction of lumbar region acute [facility] 2024 11:00am Segmental and somatic dysfunction of pelvic region acute [facility] 2024 11:00am Segmental and somatic dysfunction of thoracic region acute M arch 2024 11:00am 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 June 042024 11:00am Back pain acute July 02 10:56am Segmental and somatic dysfunction of cervical region acute A pril 2024 10:56am Segmental and somatic dysfunction of lumbar region acute Apr il 2024 10:56am Segmental and somatic dysfunction of pelvic region acute Apr il 2024 10:56am Segmental and somatic dysfunction of thoracic region acute A pril 2024 10:56am 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 July 022024 10:56am Back pain acute July 31, 2024 11:27am Segmental and somatic dysfunction of cervical region acute M ay 2024 11:27am Segmental and somatic dysfunction of lumbar region acute July 31, 2024 11:27am Segmental and somatic dysfunction of pelvic region acute July 31, 2024 11:27am Segmental and somatic dysfunction of thoracic region acute M ay 2024 11:27am 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 July 11:27am Back pain acute August 09, 2024 9:30am Segmental and somatic dysfunction of lumbar region acute Joey 2024 9:30am Segmental and somatic dysfunction of pelvic region acute Joey 2024 9:30am Segmental and somatic dysfunction of thoracic region acute J une 2024 9:30am 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 09, 2024 9:30am 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 August 9:30am Segmental and somatic dysfunction of cervical region acute J une 2024 2:27pm Segmental and somatic dysfunction of lumbar region acute Joey e 2024 2:27pm Segmental and somatic dysfunction of pelvic region acute Joey e 2024 2:27pm Segmental and somatic dysfunction of thoracic region acute J une 2024 2:27pm 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 23, 2024 2:27pm 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 August 2:27pm [facility] Work Phone: 1(574) 619-381102-24-2025 Evaluation note* Diagnosis Onset Date Resolution Status Admit Date Segmental and somatic dysfunction of cervical region acute F ebruary 2024 1:27pm Segmental and somatic dysfunction of lumbar region acute Feb ruary 2024 1:27pm Segmental and somatic dysfunction of pelvic region acute Feb ruary 2024 1:27pm Segmental and somatic dysfunction of thoracic region acute F ebruary 2024 1:27pm 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 April 30, 2024 1:27pm Segmental and somatic dysfunction of cervical region acute M arch 2024 11:00am Segmental and somatic dysfunction of lumbar region acute Mar ch 2024 11:00am Segmental and somatic dysfunction of pelvic region acute Mar ch 2024 11:00am Segmental and somatic dysfunction of thoracic region acute M arch 2024 11:00am Back pain chronic June 04 11:00am 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 June 042024 11:00am Segmental and somatic dysfunction of cervical region acute A pril 2024 10:56am Segmental and somatic dysfunction of lumbar region acute Apr il 2024 10:56am Segmental and somatic dysfunction of pelvic region acute Apr il 2024 10:56am Segmental and somatic dysfunction of thoracic region acute A pril 2024 10:56am Back pain chronic July 02 10:56am 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 July 022024 10:56am Segmental and somatic dysfunction of cervical region acute M ay 2024 11:27am Segmental and somatic dysfunction of lumbar region acute July 31, 2024 11:27am Segmental and somatic dysfunction of pelvic region acute July 31, 2024 11:27am Segmental and somatic dysfunction of thoracic region acute M ay 2024 11:27am Back pain chronic July 31, 2024 11:27am 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 July 11:27am Segmental and somatic dysfunction of lumbar region acute Joey e 2024 9:30am Segmental and somatic dysfunction of pelvic region acute Joey e 2024 9:30am Segmental and somatic dysfunction of thoracic region acute J une 2024 9:30am Back pain chronic August 09, 2024 9:30am 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 09, 2024 9:30am 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 August 9:30am Segmental and somatic dysfunction of cervical region acute J une 2024 2:27pm Segmental and somatic dysfunction of lumbar region acute Joey e 2024 2:27pm Segmental and somatic dysfunction of pelvic region acute Joey e 2024 2:27pm Segmental and somatic dysfunction of thoracic region acute J une 2024 2:27pm Back pain chronic August 23 2:27pm 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 23, 2024 2:27pm Segmental and somatic dysfunction of cervical region acute J une 2024 11:30am Segmental and somatic dysfunction of lumbar region acute Joey e 2024 11:30am Segmental and somatic dysfunction of pelvic region acute Joey e 2024 11:30am Segmental and somatic dysfunction of thoracic region acute J une 2024 11:30am Back pain chronic August 28 11:30am 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 August 11:30am [place] [employer] Work Phone: 1(205) 593-713112-12-2024 Evaluation note* Diagnosis Onset Date Resolution Status Admit Date Segmental and somatic dysfunction of cervical region acute D ecember 2023 11:27am Segmental and somatic dysfunction of lumbar region acute Dec ember 2023 11:27am Segmental and somatic dysfunction of pelvic region acute Dec ember 2023 11:27am Segmental and somatic dysfunction of thoracic region acute D ecember 2023 11:27am 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 February 16, 2024 11:27am Microscopic colitis acute Janua ry 2024 12:49pm Segmental and somatic dysfunction of cervical region acute J anuary 2024 11:33am Segmental and somatic dysfunction of lumbar region acute [facility] 20[facility] 11:33am Segmental and somatic dysfunction of pelvic region acute [facility] 2024 11:33am Segmental and somatic dysfunction of thoracic region acute J anuary 2024 11:33am 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 March 19, 2024 11:33am Segmental and somatic dysfunction of cervical region acute F ebruary 2024 1:27pm Segmental and somatic dysfunction of lumbar region acute Feb ruary 2024 1:27pm Segmental and somatic dysfunction of pelvic region acute Feb ruary 2024 1:27pm Segmental and somatic dysfunction of thoracic region acute F ebruary 2024 1:27pm 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 April 30, 2024 1:27pm [facility] Work Phone: 1(952) 645-822812-12-2024 Evaluation note* Diagnosis Onset Date Resolution Status Admit Date Segmental and somatic dysfunction of cervical region acute D ecember 2023 11:27am Segmental and somatic dysfunction of lumbar region acute Dec ember 2023 11:27am Segmental and somatic dysfunction of pelvic region acute Dec ember 2023 11:27am Segmental and somatic dysfunction of thoracic region acute D ecember 2023 11:27am 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 February 16, 2024 11:27am Microscopic colitis acute Janua ry 2024 12:49pm Segmental and somatic dysfunction of cervical region acute J anuary 2024 11:33am Segmental and somatic dysfunction of lumbar region acute [facility] 2024 11:33am Segmental and somatic dysfunction of pelvic region acute [facility] 2024 11:33am Segmental and somatic dysfunction of thoracic region acute J anuary 2024 11:33am 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 March 19, 2024 11:33am Segmental and somatic dysfunction of cervical region acute F ebruary 2024 1:27pm Segmental and somatic dysfunction of lumbar region acute Feb ruary 2024 1:27pm Segmental and somatic dysfunction of pelvic region acute Feb ruary 2024 1:27pm Segmental and somatic dysfunction of thoracic region acute F ebruary 2024 1:27pm 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 April 30, 2024 1:27pm Segmental and somatic dysfunction of cervical region acute M arch 2024 11:00am Segmental and somatic dysfunction of lumbar region acute Mar 2024 11:00am Segmental and somatic dysfunction of pelvic region acute [facility] 2024 11:00am Segmental and somatic dysfunction of thoracic region acute M arch 2024 11:00am 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 June 042024 11:00am [facility] Work Phone: 1(438) 107-188411-12-2024 Evaluation note* Diagnosis Onset Date Resolution Status Admit Date Segmental and somatic dysfunction of cervical region acute N ovember 2023 2:27pm Segmental and somatic dysfunction of lumbar region acute Nov ember 2023 2:27pm Segmental and somatic dysfunction of pelvic region acute Jan ember 2023 2:27pm Segmental and somatic dysfunction of thoracic region acute N ovember 2023 2:27pm 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 January 17, 2024 2:27pm Segmental and somatic dysfunction of cervical region acute D ecember 2023 11:27am Segmental and somatic dysfunction of lumbar region acute Dec ember 2023 11:27am Segmental and somatic dysfunction of pelvic region acute Dec ember 2023 11:27am Segmental and somatic dysfunction of thoracic region acute D ecember 2023 11:27am 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 February 16, 2024 11:27am Microscopic colitis acute Janua ry 2024 12:49pm Segmental and somatic dysfunction of cervical region acute J anuary 2024 11:33am Segmental and somatic dysfunction of lumbar region acute [facility] 2024 11:33am Segmental and somatic dysfunction of pelvic region acute [facility] 2024 11:33am Segmental and somatic dysfunction of thoracic region acute J anuary 2024 11:33am 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 March 19, 2024 11:33am Segmental and somatic dysfunction of cervical region acute F ebruary 2024 1:27pm Segmental and somatic dysfunction of lumbar region acute Feb ruary 2024 1:27pm Segmental and somatic dysfunction of pelvic region acute Feb ruary 2024 1:27pm Segmental and somatic dysfunction of thoracic region acute F ebruary 2024 1:27pm 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 April 30, 2024 1:27pm [facility] Work Phone: Evaluation note* Diagnosis Onset Date Resolution Status Back pain acute Neck pain acute Segmental and somatic dysfunction of cervical region acute Segmental and somatic dysfunction of lumbar region acute Segmental and somatic dysfunction of pelvic region acute Segmental and somatic dysfunction of thoracic region acute 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 Back pain acute Neck pain acute Segmental and somatic dysfunction of cervical region acute Segmental and somatic dysfunction of lumbar region acute Segmental and somatic dysfunction of pelvic region acute Segmental and somatic dysfunction of thoracic region acute 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 Back pain acute Neck pain acute Segmental and somatic dysfunction of cervical region acute Segmental and somatic dysfunction of lumbar region acute Segmental and somatic dysfunction of pelvic region acute Segmental and somatic dysfunction of thoracic region acute 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 Back pain acute Segmental and somatic dysfunction of cervical region acute Segmental and somatic dysfunction of lumbar region acute Segmental and somatic dysfunction of pelvic region acute Segmental and somatic dysfunction of thoracic region acute Degeneration of intervertebral disc of thoracic region [facility] Work Phone: Evaluation note* Diagnosis Onset Date Resolution Status Back pain acute Segmental and somatic dysfunction of cervical region acute Segmental and somatic dysfunction of lumbar region acute Segmental and somatic dysfunction of pelvic region acute Segmental and somatic dysfunction of thoracic region acute 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 Neck pain acute Segmental and somatic dysfunction of cervical region acute Segmental and somatic dysfunction of lumbar region acute Segmental and somatic dysfunction of pelvic region acute Segmental and somatic dysfunction of thoracic region acute 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 Back pain acute Neck pain acute Segmental and somatic dysfunction of cervical region acute Segmental and somatic dysfunction of lumbar region acute Segmental and somatic dysfunction of pelvic region acute Segmental and somatic dysfunction of thoracic region acute 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 Back pain acute Neck pain acute Segmental and somatic dysfunction of cervical region acute Segmental and somatic dysfunction of lumbar region acute Segmental and somatic dysfunction of pelvic region acute Segmental and somatic dysfunction of thoracic region acute 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 Back pain acute Neck pain acute Segmental and somatic dysfunction of cervical region acute Segmental and somatic dysfunction of lumbar region acute Segmental and somatic dysfunction of pelvic region acute Segmental and somatic dysfunction of thoracic region acute Degeneration of intervertebral disc of thoracic region [facility] Work Phone: Evaluation note* Diagnosis Onset Date Resolution Status Back pain acute Neck pain acute Segmental and somatic dysfunction of cervical region acute Segmental and somatic dysfunction of lumbar region acute Segmental and somatic dysfunction of pelvic region acute Segmental and somatic dysfunction of thoracic region acute 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 Back pain acute Neck pain acute Segmental and somatic dysfunction of cervical region acute Segmental and somatic dysfunction of lumbar region acute Segmental and somatic dysfunction of pelvic region acute Segmental and somatic dysfunction of thoracic region acute 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 Back pain acute Neck pain acute Segmental and somatic dysfunction of cervical region acute Segmental and somatic dysfunction of lumbar region acute Segmental and somatic dysfunction of pelvic region acute Segmental and somatic dysfunction of thoracic region acute 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 Back pain acute Neck pain acute Segmental and somatic dysfunction of cervical region acute Segmental and somatic dysfunction of lumbar region acute Segmental and somatic dysfunction of pelvic region acute Segmental and somatic dysfunction of thoracic region acute 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 Back pain acute Neck pain acute Segmental and somatic dysfunction of cervical region acute Segmental and somatic dysfunction of lumbar region acute Segmental and somatic dysfunction of pelvic region acute Segmental and somatic dysfunction of thoracic region acute Degeneration of intervertebral disc of thoracic region [facility] Work Phone: Evaluation note* Diagnosis Onset Date Resolution Status Back pain acute Neck pain acute Segmental and somatic dysfunction of cervical region acute Segmental and somatic dysfunction of lumbar region acute Segmental and somatic dysfunction of pelvic region acute Segmental and somatic dysfunction of thoracic region acute 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 Back pain acute Neck pain acute Segmental and somatic dysfunction of cervical region acute Segmental and somatic dysfunction of lumbar region acute Segmental and somatic dysfunction of pelvic region acute Segmental and somatic dysfunction of thoracic region acute 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 Back pain acute Neck pain acute Segmental and somatic dysfunction of cervical region acute Segmental and somatic dysfunction of lumbar region acute Segmental and somatic dysfunction of pelvic region acute Segmental and somatic dysfunction of thoracic region acute 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 Back pain acute Neck pain acute Segmental and somatic dysfunction of cervical region acute Segmental and somatic dysfunction of lumbar region acute Segmental and somatic dysfunction of pelvic region acute Segmental and somatic dysfunction of thoracic region acute 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 Back pain acute Neck pain acute Segmental and somatic dysfunction of cervical region acute Segmental and somatic dysfunction of lumbar region acute Segmental and somatic dysfunction of pelvic region acute Segmental and somatic dysfunction of thoracic region acute 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 Back pain acute Segmental and somatic dysfunction of cervical region acute Segmental and somatic dysfunction of lumbar region acute Segmental and somatic dysfunction of pelvic region acute Segmental and somatic dysfunction of thoracic region acute Degeneration of intervertebral disc of thoracic region [facility] Work Phone: Evaluation note* Diagnosis Onset Date Resolution Status Back pain acute Neck pain acute Segmental and somatic dysfunction of cervical region acute Segmental and somatic dysfunction of lumbar region acute Segmental and somatic dysfunction of pelvic region acute Segmental and somatic dysfunction of thoracic region acute 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 Back pain acute Neck pain acute Segmental and somatic dysfunction of cervical region acute Segmental and somatic dysfunction of lumbar region acute Segmental and somatic dysfunction of pelvic region acute Segmental and somatic dysfunction of thoracic region acute 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 Back pain acute Neck pain acute Segmental and somatic dysfunction of cervical region acute Segmental and somatic dysfunction of lumbar region acute Segmental and somatic dysfunction of pelvic region acute Segmental and somatic dysfunction of thoracic region acute 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 Back pain acute Segmental and somatic dysfunction of cervical region acute Segmental and somatic dysfunction of lumbar region acute Segmental and somatic dysfunction of pelvic region acute Segmental and somatic dysfunction of thoracic region acute 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 Back pain acute Segmental and somatic dysfunction of cervical region acute Segmental and somatic dysfunction of lumbar region acute Segmental and somatic dysfunction of pelvic region acute Segmental and somatic dysfunction of thoracic region acute DDD (degenerative disc disease) chronic Back pain acute Segmental and somatic dysfunction of cervical region acute Segmental and somatic dysfunction of lumbar region acute Segmental and somatic dysfunction of pelvic region acute Segmental and somatic dysfunction of thoracic region acute DDD (degenerative disc disease) chronic Back pain acute Segmental and somatic dysfunction of cervical region acute Segmental and somatic dysfunction of lumbar region acute Segmental and somatic dysfunction of pelvic region acute Segmental and somatic dysfunction of thoracic region acute DDD (degenerative disc disease) [facility] Work Phone: Evaluation note* Diagnosis Onset Date Resolution Status Back pain acute Neck pain acute Segmental and somatic dysfunction of cervical region acute Segmental and somatic dysfunction of lumbar region acute Segmental and somatic dysfunction of pelvic region acute Segmental and somatic dysfunction of thoracic region acute 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 Back pain acute Neck pain acute Segmental and somatic dysfunction of cervical region acute Segmental and somatic dysfunction of lumbar region acute Segmental and somatic dysfunction of pelvic region acute Segmental and somatic dysfunction of thoracic region acute 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 Back pain acute Segmental and somatic dysfunction of cervical region acute Segmental and somatic dysfunction of lumbar region acute Segmental and somatic dysfunction of pelvic region acute Segmental and somatic dysfunction of thoracic region acute 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 Back pain acute Segmental and somatic dysfunction of cervical region acute Segmental and somatic dysfunction of lumbar region acute Segmental and somatic dysfunction of pelvic region acute Segmental and somatic dysfunction of thoracic region acute DDD (degenerative disc disease) chronic Back pain acute Segmental and somatic dysfunction of cervical region acute Segmental and somatic dysfunction of lumbar region acute Segmental and somatic dysfunction of pelvic region acute Segmental and somatic dysfunction of thoracic region acute DDD (degenerative disc disease) chronic Back pain acute Segmental and somatic dysfunction of cervical region acute Segmental and somatic dysfunction of lumbar region acute Segmental and somatic dysfunction of pelvic region acute Segmental and somatic dysfunction of thoracic region acute DDD (degenerative disc disease) [facility] Work Phone: Evaluation note* Diagnosis Onset Date Resolution Status Back pain acute Neck pain acute Segmental and somatic dysfunction of cervical region acute Segmental and somatic dysfunction of lumbar region acute Segmental and somatic dysfunction of pelvic region acute Segmental and somatic dysfunction of thoracic region acute 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 Back pain acute Segmental and somatic dysfunction of cervical region acute Segmental and somatic dysfunction of lumbar region acute Segmental and somatic dysfunction of pelvic region acute Segmental and somatic dysfunction of thoracic region acute 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 Back pain acute Segmental and somatic dysfunction of cervical region acute Segmental and somatic dysfunction of lumbar region acute Segmental and somatic dysfunction of pelvic region acute Segmental and somatic dysfunction of thoracic region acute DDD (degenerative disc disease) chronic Back pain acute Segmental and somatic dysfunction of cervical region acute Segmental and somatic dysfunction of lumbar region acute Segmental and somatic dysfunction of pelvic region acute Segmental and somatic dysfunction of thoracic region acute DDD (degenerative disc disease) chronic Back pain acute Segmental and somatic dysfunction of cervical region acute Segmental and somatic dysfunction of lumbar region acute Segmental and somatic dysfunction of pelvic region acute Segmental and somatic dysfunction of thoracic region acute DDD (degenerative disc disease) chronic Back pain acute Segmental and somatic dysfunction of cervical region acute Segmental and somatic dysfunction of lumbar region acute Segmental and somatic dysfunction of pelvic region acute Segmental and somatic dysfunction of thoracic region acute DDD (degenerative disc disease) [facility] Work Phone: Evaluation note* Diagnosis Onset Date Resolution Status Back pain acute Segmental and somatic dysfunction of cervical region acute Segmental and somatic dysfunction of lumbar region acute Segmental and somatic dysfunction of pelvic region acute Segmental and somatic dysfunction of thoracic region acute DDD (degenerative disc disease) chronic Back pain acute Segmental and somatic dysfunction of cervical region acute Segmental and somatic dysfunction of lumbar region acute Segmental and somatic dysfunction of pelvic region acute Segmental and somatic dysfunction of thoracic region acute DDD (degenerative disc disease) chronic Back pain acute Segmental and somatic dysfunction of cervical region acute Segmental and somatic dysfunction of lumbar region acute Segmental and somatic dysfunction of pelvic region acute Segmental and somatic dysfunction of thoracic region acute DDD (degenerative disc disease) chronic Back pain acute Segmental and somatic dysfunction of cervical region acute Segmental and somatic dysfunction of lumbar region acute Segmental and somatic dysfunction of pelvic region acute Segmental and somatic dysfunction of thoracic region acute DDD (degenerative disc disease) chronic Back pain acute Segmental and somatic dysfunction of cervical region acute Segmental and somatic dysfunction of lumbar region acute Segmental and somatic dysfunction of pelvic region acute Segmental and somatic dysfunction of thoracic region acute DDD (degenerative disc disease) chronic Back pain acute Segmental and somatic dysfunction of cervical region acute Segmental and somatic dysfunction of lumbar region acute Segmental and somatic dysfunction of pelvic region acute Segmental and somatic dysfunction of thoracic region acute DDD (degenerative disc disease) [facility] Work Phone: Evaluation note* Diagnosis Onset Date Resolution Status Back pain acute Segmental and somatic dysfunction of cervical region acute Segmental and somatic dysfunction of lumbar region acute Segmental and somatic dysfunction of pelvic region acute Segmental and somatic dysfunction of thoracic region acute DDD (degenerative disc disease) chronic Back pain acute Segmental and somatic dysfunction of cervical region acute Segmental and somatic dysfunction of lumbar region acute Segmental and somatic dysfunction of pelvic region acute Segmental and somatic dysfunction of thoracic region acute DDD (degenerative disc disease) chronic Back pain acute Segmental and somatic dysfunction of cervical region acute Segmental and somatic dysfunction of lumbar region acute Segmental and somatic dysfunction of pelvic region acute Segmental and somatic dysfunction of thoracic region acute DDD (degenerative disc disease) chronic Back pain acute Segmental and somatic dysfunction of cervical region acute Segmental and somatic dysfunction of lumbar region acute Segmental and somatic dysfunction of pelvic region acute Segmental and somatic dysfunction of thoracic region acute DDD (degenerative disc disease) chronic Back pain acute Segmental and somatic dysfunction of lumbar region acute Segmental and somatic dysfunction of pelvic region acute Segmental and somatic dysfunction of thoracic region acute DDD (degenerative disc disease) chronic Back pain acute Segmental and somatic dysfunction of lumbar region acute Segmental and somatic dysfunction of pelvic region acute Segmental and somatic dysfunction of thoracic region acute DDD (degenerative disc disease) [facility] Work Phone: Evaluation note* Diagnosis Onset Date Resolution Status Back pain acute Segmental and somatic dysfunction of cervical region acute Segmental and somatic dysfunction of lumbar region acute Segmental and somatic dysfunction of pelvic region acute Segmental and somatic dysfunction of thoracic region acute DDD (degenerative disc disease) chronic Back pain acute Segmental and somatic dysfunction of cervical region acute Segmental and somatic dysfunction of lumbar region acute Segmental and somatic dysfunction of pelvic region acute Segmental and somatic dysfunction of thoracic region acute DDD (degenerative disc disease) chronic Back pain acute Segmental and somatic dysfunction of cervical region acute Segmental and somatic dysfunction of lumbar region acute Segmental and somatic dysfunction of pelvic region acute Segmental and somatic dysfunction of thoracic region acute DDD (degenerative disc disease) chronic Back pain acute Segmental and somatic dysfunction of lumbar region acute Segmental and somatic dysfunction of pelvic region acute Segmental and somatic dysfunction of thoracic region acute DDD (degenerative disc disease) chronic Back pain acute Segmental and somatic dysfunction of lumbar region acute Segmental and somatic dysfunction of pelvic region acute Segmental and somatic dysfunction of thoracic region acute DDD (degenerative disc disease) chronic Back pain acute Segmental and somatic dysfunction of lumbar region acute Segmental and somatic dysfunction of pelvic region acute Segmental and somatic dysfunction of thoracic region acute DDD (degenerative disc disease) chronic Back pain acute Segmental and somatic dysfunction of lumbar region acute Segmental and somatic dysfunction of pelvic region acute DDD (degenerative disc disease) chronic Back pain acute Segmental and somatic dysfunction of lumbar region acute Segmental and somatic dysfunction of pelvic region acute DDD (degenerative disc disease) chronic Back pain acute Segmental and somatic dysfunction of lumbar region acute Segmental and somatic dysfunction of pelvic region acute DDD (degenerative disc disease) chronic Back pain acute Segmental and somatic dysfunction of lumbar region acute Segmental and somatic dysfunction of pelvic region acute DDD (degenerative disc disease) chronic Back pain acute Segmental and somatic dysfunction of lumbar region acute Segmental and somatic dysfunction of pelvic region acute DDD (degenerative disc disease) chronic Back pain acute Segmental and somatic dysfunction of lumbar region acute Segmental and somatic dysfunction of pelvic region acute DDD (degenerative disc disease) chronic Back pain acute Segmental and somatic dysfunction of lumbar region acute Segmental and somatic dysfunction of pelvic region acute DDD (degenerative disc disease) [facility] Work Phone: Evaluation note* Diagnosis Onset Date Resolution Status Back pain acute Segmental and somatic dysfunction of cervical region acute Segmental and somatic dysfunction of lumbar region acute Segmental and somatic dysfunction of pelvic region acute Segmental and somatic dysfunction of thoracic region acute DDD (degenerative disc disease) chronic Back pain acute Segmental and somatic dysfunction of cervical region acute Segmental and somatic dysfunction of lumbar region acute Segmental and somatic dysfunction of pelvic region acute Segmental and somatic dysfunction of thoracic region acute DDD (degenerative disc disease) chronic Back pain acute Segmental and somatic dysfunction of cervical region acute Segmental and somatic dysfunction of lumbar region acute Segmental and somatic dysfunction of pelvic region acute Segmental and somatic dysfunction of thoracic region acute DDD (degenerative disc disease) chronic Back pain acute Segmental and somatic dysfunction of lumbar region acute Segmental and somatic dysfunction of pelvic region acute Segmental and somatic dysfunction of thoracic region acute DDD (degenerative disc disease) chronic Back pain acute Segmental and somatic dysfunction of lumbar region acute Segmental and somatic dysfunction of pelvic region acute Segmental and somatic dysfunction of thoracic region acute DDD (degenerative disc disease) chronic Back pain acute Segmental and somatic dysfunction of lumbar region acute Segmental and somatic dysfunction of pelvic region acute Segmental and somatic dysfunction of thoracic region acute DDD (degenerative disc disease) chronic Back pain acute Segmental and somatic dysfunction of lumbar region acute Segmental and somatic dysfunction of pelvic region acute DDD (degenerative disc disease) chronic Back pain acute Segmental and somatic dysfunction of lumbar region acute Segmental and somatic dysfunction of pelvic region acute DDD (degenerative disc disease) chronic Back pain acute Segmental and somatic dysfunction of lumbar region acute Segmental and somatic dysfunction of pelvic region acute DDD (degenerative disc disease) chronic Back pain acute Segmental and somatic dysfunction of lumbar region acute Segmental and somatic dysfunction of pelvic region acute DDD (degenerative disc disease) chronic Back pain acute Segmental and somatic dysfunction of lumbar region acute Segmental and somatic dysfunction of pelvic region acute DDD (degenerative disc disease) chronic Back pain acute Segmental and somatic dysfunction of lumbar region acute Segmental and somatic dysfunction of pelvic region acute DDD (degenerative disc disease) chronic Back pain acute Segmental and somatic dysfunction of lumbar region acute Segmental and somatic dysfunction of pelvic region acute DDD (degenerative disc disease) chronic Back pain acute Segmental and somatic dysfunction of lumbar region acute Segmental and somatic dysfunction of pelvic region acute DDD (degenerative disc disease) chronic Back pain acute Segmental and somatic dysfunction of lumbar region acute Segmental and somatic dysfunction of pelvic region acute DDD (degenerative disc disease) chronic Back pain acute Segmental and somatic dysfunction of lumbar region acute Segmental and somatic dysfunction of pelvic region acute DDD (degenerative disc disease) [facility] Work Phone: Evaluation note* Diagnosis Onset Date Resolution Status Back pain acute Segmental and somatic dysfunction of cervical region acute Segmental and somatic dysfunction of lumbar region acute Segmental and somatic dysfunction of pelvic region acute Segmental and somatic dysfunction of thoracic region acute DDD (degenerative disc disease) chronic Back pain acute Segmental and somatic dysfunction of cervical region acute Segmental and somatic dysfunction of lumbar region acute Segmental and somatic dysfunction of pelvic region acute Segmental and somatic dysfunction of thoracic region acute DDD (degenerative disc disease) chronic Back pain acute Segmental and somatic dysfunction of cervical region acute Segmental and somatic dysfunction of lumbar region acute Segmental and somatic dysfunction of pelvic region acute Segmental and somatic dysfunction of thoracic region acute DDD (degenerative disc disease) chronic Back pain acute Segmental and somatic dysfunction of lumbar region acute Segmental and somatic dysfunction of pelvic region acute Segmental and somatic dysfunction of thoracic region acute DDD (degenerative disc disease) chronic Back pain acute Segmental and somatic dysfunction of lumbar region acute Segmental and somatic dysfunction of pelvic region acute Segmental and somatic dysfunction of thoracic region acute DDD (degenerative disc disease) chronic Back pain acute Segmental and somatic dysfunction of lumbar region acute Segmental and somatic dysfunction of pelvic region acute Segmental and somatic dysfunction of thoracic region acute DDD (degenerative disc disease) chronic Back pain acute Segmental and somatic dysfunction of lumbar region acute Segmental and somatic dysfunction of pelvic region acute DDD (degenerative disc disease) chronic Back pain acute Segmental and somatic dysfunction of lumbar region acute Segmental and somatic dysfunction of pelvic region acute DDD (degenerative disc disease) chronic Back pain acute Segmental and somatic dysfunction of lumbar region acute Segmental and somatic dysfunction of pelvic region acute DDD (degenerative disc disease) chronic Back pain acute Segmental and somatic dysfunction of lumbar region acute Segmental and somatic dysfunction of pelvic region acute DDD (degenerative disc disease) chronic Back pain acute Segmental and somatic dysfunction of lumbar region acute Segmental and somatic dysfunction of pelvic region acute DDD (degenerative disc disease) chronic Back pain acute Segmental and somatic dysfunction of lumbar region acute Segmental and somatic dysfunction of pelvic region acute DDD (degenerative disc disease) chronic Back pain acute Segmental and somatic dysfunction of lumbar region acute Segmental and somatic dysfunction of pelvic region acute DDD (degenerative disc disease) chronic Back pain acute Segmental and somatic dysfunction of lumbar region acute Segmental and somatic dysfunction of pelvic region acute DDD (degenerative disc disease) chronic Back pain acute Segmental and somatic dysfunction of lumbar region acute Segmental and somatic dysfunction of pelvic region acute DDD (degenerative disc disease) chronic Back pain acute Segmental and somatic dysfunction of lumbar region acute Segmental and somatic dysfunction of pelvic region acute DDD (degenerative disc disease) chronic Back pain acute Segmental and somatic dysfunction of lumbar region acute Segmental and somatic dysfunction of pelvic region acute DDD (degenerative disc disease) [facility] Work Phone: Evaluation note* Diagnosis Onset Date Resolution Status Back pain acute Segmental and somatic dysfunction of lumbar region acute Segmental and somatic dysfunction of pelvic region acute DDD (degenerative disc disease) chronic Back pain acute Segmental and somatic dysfunction of lumbar region acute Segmental and somatic dysfunction of pelvic region acute DDD (degenerative disc disease) chronic Back pain acute Segmental and somatic dysfunction of lumbar region acute Segmental and somatic dysfunction of pelvic region acute DDD (degenerative disc disease) chronic Back pain acute Segmental and somatic dysfunction of lumbar region acute Segmental and somatic dysfunction of pelvic region acute DDD (degenerative disc disease) chronic Back pain acute Segmental and somatic dysfunction of lumbar region acute Segmental and somatic dysfunction of pelvic region acute DDD (degenerative disc disease) chronic Back pain acute Segmental and somatic dysfunction of cervical region acute Segmental and somatic dysfunction of lumbar region acute Segmental and somatic dysfunction of pelvic region acute Segmental and somatic dysfunction of thoracic region acute DDD (degenerative disc disease) chronic Back pain acute Segmental and somatic dysfunction of cervical region acute Segmental and somatic dysfunction of lumbar region acute Segmental and somatic dysfunction of pelvic region acute Segmental and somatic dysfunction of thoracic region acute DDD (degenerative disc disease) [facility] Work Phone: Evaluation note* Diagnosis Onset Date Resolution Status Back pain acute Segmental and somatic dysfunction of cervical region acute Segmental and somatic dysfunction of lumbar region acute Segmental and somatic dysfunction of pelvic region acute Segmental and somatic dysfunction of thoracic region acute DDD (degenerative disc disease) chronic Back pain acute Segmental and somatic dysfunction of cervical region acute Segmental and somatic dysfunction of lumbar region acute Segmental and somatic dysfunction of pelvic region acute Segmental and somatic dysfunction of thoracic region acute DDD (degenerative disc disease) chronic Back pain acute Segmental and somatic dysfunction of cervical region acute Segmental and somatic dysfunction of lumbar region acute Segmental and somatic dysfunction of pelvic region acute Segmental and somatic dysfunction of thoracic region acute DDD (degenerative disc disease) [facility] Work Phone: Evaluation note* Diagnosis Onset Date Resolution Status Back pain acute Segmental and somatic dysfunction of cervical region acute Segmental and somatic dysfunction of lumbar region acute Segmental and somatic dysfunction of pelvic region acute Segmental and somatic dysfunction of thoracic region acute DDD (degenerative disc disease) chronic Back pain acute Segmental and somatic dysfunction of cervical region acute Segmental and somatic dysfunction of lumbar region acute Segmental and somatic dysfunction of pelvic region acute Segmental and somatic dysfunction of thoracic region acute DDD (degenerative disc disease) chronic Back pain acute Segmental and somatic dysfunction of cervical region acute Segmental and somatic dysfunction of lumbar region acute Segmental and somatic dysfunction of pelvic region acute Segmental and somatic dysfunction of thoracic region acute DDD (degenerative disc disease) chronic Back pain acute Segmental and somatic dysfunction of cervical region acute Segmental and somatic dysfunction of lumbar region acute Segmental and somatic dysfunction of pelvic region acute Segmental and somatic dysfunction of thoracic region acute DDD (degenerative disc disease) [facility] Work Phone: Evaluation note* Diagnosis Onset Date Resolution Status Back pain acute Segmental and somatic dysfunction of cervical region acute Segmental and somatic dysfunction of lumbar region acute Segmental and somatic dysfunction of pelvic region acute Segmental and somatic dysfunction of thoracic region acute DDD (degenerative disc disease) chronic Back pain acute Segmental and somatic dysfunction of cervical region acute Segmental and somatic dysfunction of lumbar region acute Segmental and somatic dysfunction of pelvic region acute Segmental and somatic dysfunction of thoracic region acute DDD (degenerative disc disease) chronic Back pain acute Segmental and somatic dysfunction of lumbar region acute Segmental and somatic dysfunction of pelvic region acute Segmental and somatic dysfunction of thoracic region acute DDD (degenerative disc disease) chronic Back pain acute Segmental and somatic dysfunction of lumbar region acute Segmental and somatic dysfunction of pelvic region acute Segmental and somatic dysfunction of thoracic region acute DDD (degenerative disc disease) chronic Back pain acute Segmental and somatic dysfunction of lumbar region acute Segmental and somatic dysfunction of pelvic region acute Segmental and somatic dysfunction of thoracic region acute DDD (degenerative disc disease) [facility] Work Phone: Instructions* Name Dates Details Patient Instructions Indication:Hyperlipidemia, unspecified Start:24-Dec-2022 Instruction Type:Provider Instructions for Treatment How to Access Health Informa tion Online using Patient Portal and [employer] Apps Indication:Hyperlipidemia, unspecified Start:24-Dec-2022 Instruction Type:Patient Education How to access health informa tion online Indication:Abnormal laboratory test Start:14-Feb-2015 Instruction Type:Patient Education How to access health informa tion online - Detail Indication:Abnormal laboratory test Start:14-Feb-2015 Instruction Type:Patient Education Patient Instructions Indication:Abdominal bloating Start:25-Dec-2014 Instruction Type:Provider Instructions for Treatment How to access health informa tion online Indication:Dysuria Start:18-Dec-2014 Instruction Type:Patient Education How to access health informa tion online - Detail Indication:Dysuria Start:18-Dec-2014 Instruction Type:Patient Education Patient Instructions Indication:Dysuria Start:18-Dec-2014 Instruction Type:Provider Instructions for Treatment How to access health informa tion online Indication:Hives Start:04-Nov-2014 Instruction Type:Patient Education How to access health informa tion online - Detail Indication:Hives Start:04-Nov-2014 Instruction Type:Patient Education Patient Instructions Indication:Cellulitis Start:04-Nov-2014 Instruction Type:Provider Instructions for Treatment Patient Instructions Indication:Acute sinusitis Start:04-Sep-2014 Instruction Type:Provider Instructions for Treatment Patient Instructions Indication:Osteoporosis Start:31-Jul-2014 Instruction Type:Provider Instructions for Treatment Patient Instructions Indication:Encounter for Medicare annual wellness exam Start:28-Jun-2014 Instruction Type:Provider Instructions for Treatment Patient Instructions Indication:Anxiety Start:17-May-2014 Instruction Type:Provider Instructions for Treatment Patient Instructions Indication:Osteoporosis Start:22-Jan-2014 Instruction Type:Provider Instructions for Treatment How to access health informa tion online Indication:Palpitations Start:09-Nov-2013 Instruction Type:Patient Education How to access health informa tion online - Detail Indication:Palpitations Start:09-Nov-2013 Instruction Type:Patient Education Patient Instructions Indication:Palpitations Start:09-Nov-2013 Instruction Type:Provider Instructions for Treatment How to access health informa tion online Indication:Dizziness and giddiness Start:03-Oct-2013 Instruction Type:Patient Education How to access health informa tion online - Detail Indication:Dizziness and giddiness Start:03-Oct-2013 Instruction Type:Patient Education Patient Instructions Indication:Dizziness and giddiness Start:03-Oct-2013 Instruction Type:Provider Instructions for Treatment Patient Instructions Indication:Abdominal bloating Start:17-Jul-2013 Instruction Type:Provider Instructions for Treatment Patient Instructions Indication:Encounter for Medicare annual wellness exam Start:09-May-2013 Instruction Type:Provider Instructions for Treatment Patient Instructions Indication:Allergic rhinitis Start:06-Feb-2013 Instruction Type:Provider Instructions for Treatment Patient Instructions Indication:Pain in unspecified hip Start:02-Jan-2013 Instruction Type:Provider Instructions for Treatment Patient Instructions Indication:Need for prophylactic vaccination and inoculation against influenza Start:22-Dec-2012 Instruction Type:Provider Instructions for Treatment Patient Instructions Indication:Osteoporosis Start:21-Aug-2012 Instruction Type:Provider Instructions for Treatment Patient Instructions Indication:Knee pain Start:02-Aug-2012 Instruction Type:Provider Instructions for Treatment Patient Instructions Indication:Osteoporosis Start:21-Jul-2012 Instruction Type:Provider Instructions for Treatment Patient Instructions Indication:Osteoporosis Start:28-Mar-2012 Instruction Type:Provider Instructions for Treatment Patient Instructions Indication:Glossitis Start:25-Feb-2012 Instruction Type:Provider Instructions for Treatment Patient Instructions Indication:Sciatica, unspecified laterality Start:13-Dec-2011 Instruction Type:Provider Instructions for Treatment [facility] Work Phone: Instructions* Name Dates Details Patient Instructions Indication:Hyperlipidemia, unspecified Start:24-Dec-2022 Instruction Type:Provider Instructions for Treatment How to Access Health Informa tion Online using Patient Portal and [employer] Apps Indication:Hyperlipidemia, unspecified Start:24-Dec-2022 Instruction Type:Patient Education How to access health informa tion online Indication:Abnormal laboratory test Start:14-Feb-2015 Instruction Type:Patient Education How to access health informa tion online - Detail Indication:Abnormal laboratory test Start:14-Feb-2015 Instruction Type:Patient Education Patient Instructions Indication:Abdominal bloating Start:25-Dec-2014 Instruction Type:Provider Instructions for Treatment How to access health informa tion online Indication:Dysuria Start:18-Dec-2014 Instruction Type:Patient Education How to access health informa tion online - Detail Indication:Dysuria Start:18-Dec-2014 Instruction Type:Patient Education Patient Instructions Indication:Dysuria Start:18-Dec-2014 Instruction Type:Provider Instructions for Treatment How to access health informa tion online Indication:Hives Start:04-Nov-2014 Instruction Type:Patient Education How to access health informa tion online - Detail Indication:Hives Start:04-Nov-2014 Instruction Type:Patient Education Patient Instructions Indication:Cellulitis Start:04-Nov-2014 Instruction Type:Provider Instructions for Treatment Patient Instructions Indication:Acute sinusitis Start:04-Sep-2014 Instruction Type:Provider Instructions for Treatment Patient Instructions Indication:Osteoporosis Start:31-Jul-2014 Instruction Type:Provider Instructions for Treatment Patient Instructions Indication:Encounter for Medicare annual wellness exam Start:28-Jun-2014 Instruction Type:Provider Instructions for Treatment Patient Instructions Indication:Anxiety Start:17-May-2014 Instruction Type:Provider Instructions for Treatment Patient Instructions Indication:Osteoporosis Start:22-Jan-2014 Instruction Type:Provider Instructions for Treatment How to access health informa tion online Indication:Palpitations Start:09-Nov-2013 Instruction Type:Patient Education How to access health informa tion online - Detail Indication:Palpitations Start:09-Nov-2013 Instruction Type:Patient Education Patient Instructions Indication:Palpitations Start:09-Nov-2013 Instruction Type:Provider Instructions for Treatment How to access health informa tion online Indication:Dizziness and giddiness Start:03-Oct-2013 Instruction Type:Patient Education How to access health informa tion online - Detail Indication:Dizziness and giddiness Start:03-Oct-2013 Instruction Type:Patient Education Patient Instructions Indication:Dizziness and giddiness Start:03-Oct-2013 Instruction Type:Provider Instructions for Treatment Patient Instructions Indication:Abdominal bloating Start:17-Jul-2013 Instruction Type:Provider Instructions for Treatment Patient Instructions Indication:Encounter for Medicare annual wellness exam Start:09-May-2013 Instruction Type:Provider Instructions for Treatment Patient Instructions Indication:Allergic rhinitis Start:06-Feb-2013 Instruction Type:Provider Instructions for Treatment Patient Instructions Indication:Pain in unspecified hip Start:02-Jan-2013 Instruction Type:Provider Instructions for Treatment Patient Instructions Indication:Need for prophylactic vaccination and inoculation against influenza Start:22-Dec-2012 Instruction Type:Provider Instructions for Treatment Patient Instructions Indication:Osteoporosis Start:21-Aug-2012 Instruction Type:Provider Instructions for Treatment Patient Instructions Indication:Knee pain Start:02-Aug-2012 Instruction Type:Provider Instructions for Treatment Patient Instructions Indication:Osteoporosis Start:21-Jul-2012 Instruction Type:Provider Instructions for Treatment Patient Instructions Indication:Osteoporosis Start:28-Mar-2012 Instruction Type:Provider Instructions for Treatment Patient Instructions Indication:Glossitis Start:25-Feb-2012 Instruction Type:Provider Instructions for Treatment Patient Instructions Indication:Sciatica, unspecified laterality Start:13-Dec-2011 Instruction Type:Provider Instructions for Treatment [facility] Work Phone: Instructions* Name Dates Details Patient Instructions Indication:Coronary artery disease Start:05-Jan-2023 Instruction Type:Provider Instructions for Treatment How to Access Health Informa tion Online using Patient Portal and [employer] Apps Indication:Coronary artery disease Start:05-Jan-2023 Instruction Type:Patient Education Patient Instructions Indication:Hyperlipidemia, unspecified Start:24-Dec-2022 Instruction Type:Provider Instructions for Treatment How to Access Health Informa tion Online using Patient Portal and [employer] Apps Indication:Hyperlipidemia, unspecified Start:24-Dec-2022 Instruction Type:Patient Education How to access health informa tion online Indication:Abnormal laboratory test Start:14-Feb-2015 Instruction Type:Patient Education How to access health informa tion online - Detail Indication:Abnormal laboratory test Start:14-Feb-2015 Instruction Type:Patient Education Patient Instructions Indication:Abdominal bloating Start:25-Dec-2014 Instruction Type:Provider Instructions for Treatment How to access health informa tion online Indication:Dysuria Start:18-Dec-2014 Instruction Type:Patient Education How to access health informa tion online - Detail Indication:Dysuria Start:18-Dec-2014 Instruction Type:Patient Education Patient Instructions Indication:Dysuria Start:18-Dec-2014 Instruction Type:Provider Instructions for Treatment How to access health informa tion online Indication:Hives Start:04-Nov-2014 Instruction Type:Patient Education How to access health informa tion online - Detail Indication:Hives Start:04-Nov-2014 Instruction Type:Patient Education Patient Instructions Indication:Cellulitis Start:04-Nov-2014 Instruction Type:Provider Instructions for Treatment Patient Instructions Indication:Acute sinusitis Start:04-Sep-2014 Instruction Type:Provider Instructions for Treatment Patient Instructions Indication:Osteoporosis Start:31-Jul-2014 Instruction Type:Provider Instructions for Treatment Patient Instructions Indication:Encounter for Medicare annual wellness exam Start:28-Jun-2014 Instruction Type:Provider Instructions for Treatment Patient Instructions Indication:Anxiety Start:17-May-2014 Instruction Type:Provider Instructions for Treatment Patient Instructions Indication:Osteoporosis Start:22-Jan-2014 Instruction Type:Provider Instructions for Treatment How to access health informa tion online Indication:Palpitations Start:09-Nov-2013 Instruction Type:Patient Education How to access health informa tion online - Detail Indication:Palpitations Start:09-Nov-2013 Instruction Type:Patient Education Patient Instructions Indication:Palpitations Start:09-Nov-2013 Instruction Type:Provider Instructions for Treatment How to access health informa tion online Indication:Dizziness and giddiness Start:03-Oct-2013 Instruction Type:Patient Education How to access health informa tion online - Detail Indication:Dizziness and giddiness Start:03-Oct-2013 Instruction Type:Patient Education Patient Instructions Indication:Dizziness and giddiness Start:03-Oct-2013 Instruction Type:Provider Instructions for Treatment Patient Instructions Indication:Abdominal bloating Start:17-Jul-2013 Instruction Type:Provider Instructions for Treatment Patient Instructions Indication:Encounter for Medicare annual wellness exam Start:09-May-2013 Instruction Type:Provider Instructions for Treatment Patient Instructions Indication:Allergic rhinitis Start:06-Feb-2013 Instruction Type:Provider Instructions for Treatment Patient Instructions Indication:Pain in unspecified hip Start:02-Jan-2013 Instruction Type:Provider Instructions for Treatment Patient Instructions Indication:Need for prophylactic vaccination and inoculation against influenza Start:22-Dec-2012 Instruction Type:Provider Instructions for Treatment Patient Instructions Indication:Osteoporosis Start:21-Aug-2012 Instruction Type:Provider Instructions for Treatment Patient Instructions Indication:Knee pain Start:02-Aug-2012 Instruction Type:Provider Instructions for Treatment Patient Instructions Indication:Osteoporosis Start:21-Jul-2012 Instruction Type:Provider Instructions for Treatment Patient Instructions Indication:Osteoporosis Start:28-Mar-2012 Instruction Type:Provider Instructions for Treatment Patient Instructions Indication:Glossitis Start:25-Feb-2012 Instruction Type:Provider Instructions for Treatment Patient Instructions Indication:Sciatica, unspecified laterality Start:13-Dec-2011 Instruction Type:Provider Instructions for Treatment [facility] Work Phone: Instructions* Name Dates Details Patient Instructions Indication:Coronary artery disease Start:05-Jan-2023 Instruction Type:Provider Instructions for Treatment How to Access Health Informa tion Online using Patient Portal and [employer] Apps Indication:Coronary artery disease Start:05-Jan-2023 Instruction Type:Patient Education Patient Instructions Indication:Hyperlipidemia, unspecified Start:24-Dec-2022 Instruction Type:Provider Instructions for Treatment How to Access Health Informa tion Online using Patient Portal and [employer] Apps Indication:Hyperlipidemia, unspecified Start:24-Dec-2022 Instruction Type:Patient Education How to access health informa tion online Indication:Abnormal laboratory test Start:14-Feb-2015 Instruction Type:Patient Education How to access health informa tion online - Detail Indication:Abnormal laboratory test Start:14-Feb-2015 Instruction Type:Patient Education Patient Instructions Indication:Abdominal bloating Start:25-Dec-2014 Instruction Type:Provider Instructions for Treatment How to access health informa tion online Indication:Dysuria Start:18-Dec-2014 Instruction Type:Patient Education How to access health informa tion online - Detail Indication:Dysuria Start:18-Dec-2014 Instruction Type:Patient Education Patient Instructions Indication:Dysuria Start:18-Dec-2014 Instruction Type:Provider Instructions for Treatment How to access health informa tion online Indication:Hives Start:04-Nov-2014 Instruction Type:Patient Education How to access health informa tion online - Detail Indication:Hives Start:04-Nov-2014 Instruction Type:Patient Education Patient Instructions Indication:Cellulitis Start:04-Nov-2014 Instruction Type:Provider Instructions for Treatment Patient Instructions Indication:Acute sinusitis Start:04-Sep-2014 Instruction Type:Provider Instructions for Treatment Patient Instructions Indication:Osteoporosis Start:31-Jul-2014 Instruction Type:Provider Instructions for Treatment Patient Instructions Indication:Encounter for Medicare annual wellness exam Start:28-Jun-2014 Instruction Type:Provider Instructions for Treatment Patient Instructions Indication:Anxiety Start:17-May-2014 Instruction Type:Provider Instructions for Treatment Patient Instructions Indication:Osteoporosis Start:22-Jan-2014 Instruction Type:Provider Instructions for Treatment How to access health informa tion online Indication:Palpitations Start:09-Nov-2013 Instruction Type:Patient Education How to access health informa tion online - Detail Indication:Palpitations Start:09-Nov-2013 Instruction Type:Patient Education Patient Instructions Indication:Palpitations Start:09-Nov-2013 Instruction Type:Provider Instructions for Treatment How to access health informa tion online Indication:Dizziness and giddiness Start:03-Oct-2013 Instruction Type:Patient Education How to access health informa tion online - Detail Indication:Dizziness and giddiness Start:03-Oct-2013 Instruction Type:Patient Education Patient Instructions Indication:Dizziness and giddiness Start:03-Oct-2013 Instruction Type:Provider Instructions for Treatment Patient Instructions Indication:Abdominal bloating Start:17-Jul-2013 Instruction Type:Provider Instructions for Treatment Patient Instructions Indication:Encounter for Medicare annual wellness exam Start:09-May-2013 Instruction Type:Provider Instructions for Treatment Patient Instructions Indication:Allergic rhinitis Start:06-Feb-2013 Instruction Type:Provider Instructions for Treatment Patient Instructions Indication:Pain in unspecified hip Start:02-Jan-2013 Instruction Type:Provider Instructions for Treatment Patient Instructions Indication:Need for prophylactic vaccination and inoculation against influenza Start:22-Dec-2012 Instruction Type:Provider Instructions for Treatment Patient Instructions Indication:Osteoporosis Start:21-Aug-2012 Instruction Type:Provider Instructions for Treatment Patient Instructions Indication:Knee pain Start:02-Aug-2012 Instruction Type:Provider Instructions for Treatment Patient Instructions Indication:Osteoporosis Start:21-Jul-2012 Instruction Type:Provider Instructions for Treatment Patient Instructions Indication:Osteoporosis Start:28-Mar-2012 Instruction Type:Provider Instructions for Treatment Patient Instructions Indication:Glossitis Start:25-Feb-2012 Instruction Type:Provider Instructions for Treatment Patient Instructions Indication:Sciatica, unspecified laterality Start:13-Dec-2011 Instruction Type:Provider Instructions for Treatment [facility] Work Phone: progress note Author Maite Arceo [facility] Note Date/Time November 26, 2024 1:29pm [facility] [address] [place] [address] OFFICE VISIT Date of Service: 11/26/24 MR#: [id number] Acct: [id number] Name: ANTONIO DECKER Rep #: [id number] : 1945 Provider: JOSIAS Arceo Age/Sex: 79/F Location: [facility] Status: Signed Intake Vital Signs 10/17/24 13:23 Height 5 ft 5 in Weight: 137 lb BMI 22.8 BP 122/80 H Pulse 70 Temp 98.3 F Intake Visit Reasons: Back pain Chief Complaint: neck and low back discomfort Is patient in pain?: Yes (neck) Pain scale (1-10): 3 Allergies ciprofloxacin Allergy (Intermediate, Verified 11/26/24 13:09) Other amoxicillin (Amoxicillin) Allergy (Verified 11/26/24 13:09) Hives clarithromycin Allergy (Verified 11/26/24 13:09) Rash naproxen Allergy (Verified 11/26/24 13:09) Hives nizatidine (From Axid) Allergy (Verified 11/26/24 13:09) Hives Sulfa (Sulfonamide Antibiotics) Allergy (Verified 11/26/24 13:09) Rash latex Adverse Reaction (Verified 11/26/24 13:09) Rash levofloxacin (From Levaquin) Adverse Reaction (Verified 11/26/24 13:09) Other Medications ?Medication ?Instructions ?Recorded ?Confirmed ?Type diclofenac sodium 1 % topical gel 100 g TP PRN PRN Maru n 07/11/18 11/26/24 History fluticasone propionate 50 2 spray NASAL DAILY 07/11/18 11/26/24 History mcg/actuation nasal spray,suspension L.acidoph,paracasei,B.animalis 10 1 ea PO DAILY 11/26/24 History billion cell capsule ascorbic acid (vitamin C) 500 mg 500 mg PO BID 0 11/26/24 History capsule biotin 5 mg tablet 5 mg PO DAILY 12/05/1911/26 History cetirizine 10 mg tablet (Zyrtec) 10 mg PO DAILY 11/26/24 History calcitriol 0.25 mcg capsule 0.25 mcg PO QDAY 03/15/24 11/26/24 History cod liver oil 1 cap PO .6xday 03/15/24 History cranberry 500 mg capsule 500 mg PO TID 03/15/2411/26 History estrogen ring vaginal 03/15/24 11/26/24 Hi story magnesium 250 mg tablet 400 mg PO DAILY 03/15/24 History rosuvastatin 5 mg tablet 5 mg PO QDAY 03/15/24 History budesonide 3 mg 3 mg PO .COMPLEX #210 ea 06/2911/26/24 Rx capsule,delayed,extended release ondansetron HCl 4 mg tablet 4 mg PO .COMPLEX #5 tabs 0 05/08/24 11/26/24 Rx [id number] 140 gram-sod sulfate 9 See Rx Instructions PO .COMPLEX #3 05/08/24 11/26/24 Rx gram-NaCl 5.2gram-KCl-C oral pwdr ea packs (Plenvu) Have you fallen in the past year?: No PFSH Medical History Urinary tract infection Vaginal atrophy Osteoarthritis Osteopenia Hypoglycemia Coronary artery disease FH: cataracts Seasonal allergies Anxiety Diverticulosis of colon Diarrhea Osteoporosis GERD (gastroesophageal reflux disease) History of reactive hypoglycemia History of UTI Family History Other Arthritis Bowel disease Heart disease Hyperlipidemia Osteoporosis Respiratory disease Suicide attempt Thyroid disorder Social History Smoking Status: Former smoker alcohol intake: current alcohol intake frequency: a few times a week Alcohol type: wine substance use type: former substance user Date of last use: marijuana and amphetamines in her 20's what type of physical activity do you participate in: walking and weight training frequency: 5-6 times per week HPI Back pain Chief Complaint: low back and neck pain Visit Number: 10 Details: ANTONIO DECKER is a 79 year old female here to follow up for ongoing neck and back pain. Pt. reports she is experiencing stiffness on the left side of her neck that extends into her left trap. She states it is a pulling sensation and rates her pain 3/10 today. She denies ARRIAGA's. She states her left low back pain is a mild ache and is much less frequent and less intense. She rates her low back pain 2/10 today. She continues to get massages weekly and is doing PT for balance. She states prolonged periods of walking and standing aggravate her painand discomfort. Pt. denies new injury, numbness or tingling. She stays active, goes to the gym, does her PT exercises and stretches at home. She reports chiropractic adjustments are helpful in relieving some her pain and discomfort but it gradually returns. Location: low back/neck Duration: intermittent Aggravating or associated factors: bending,standing,sleeping Relieving factors: chiro,massage,acu Pain Quality: aching and dull Exam Musc General: Yes normal gait, joint tenderness and decreased range of motion; No normal posture Cervical Spine: Yes cervical muscular tenderness left greater than right lower ,Yes cervical spasm left greater than right diffuse trapezius, paracervical muscles and intrinsics and Yes misalignment misalignment: C6 and C7 Thoracic/Lumber: No thoracic and lumbar spine normal to inspection (High Left Shoulder), Yes paraspinal tenderness bilaterally in the upper thoracic, in the mid thoracic and in the lower thoracic and on the left greater than right (lumbopelvic), Yes thoraco-lumbar spasm on the right greater than left (trap, rhomboid, psoas) and on the left greater than right (paraspinal (L3-L5), glute) and Yes misalignment T2, T3, T4, T9, T10, L3, L4, L5 and LIL Sacroiliac joints: on the left tender to palpation Office Procedures Procedures - Chiropractic Procedures Manipulation: Lumbar L3, Thoracic T2 and T10 and Pelvis LIL Manipulation: 3-4 regions Patient Response: positive Assessment and Plan Assessment and Plan (1) Back pain: Status: Chronic Qualifiers: Back pain laterality: left Back pain location: low back pain Chronicity: chronic Sciatica laterality: bilateral sciatica Sciatica presence:with sciatica Qualified Code(s): M54.41 - Lumbago with sciatica, right side; M54.42 - Lumbago with sciatica, left side; G89.29 - Other chronic pain (2) Segmental and somatic dysfunction of thoracic region: Status: Acute (3) Segmental and somatic dysfunction of lumbar region: Status: Acute (4) Segmental and somatic dysfunction of pelvic region: Status: Acute (5) 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 Continue care as needed. Plan Details Goals & Barriers: Goals Decrease pain Decrease spasm Improve ROM Barriers DDD Follow Up: 1 Month Coding Level of Care Code No Charge Diagnoses Chronic left-sided low back pain with bilateral sciatica M54.41; M54.42; G89.29 Back pain laterality: left Back pain location: low back pain Chronicity: chronic Sciatica laterality: bilateral sciatica Sciatica presence: with sciatica Segmental and somatic dysfunction of thoracic region M99.02 Segmental and somatic dysfunction of lumbar region M99.03 Segmental and somatic dysfunction of pelvic region M99.05 Degeneration of intervertebral disc of thoracic region M51.34 CPT Codes Procedures - Manipulation: 3-4 regions ([id number]) Clinical Quality Measures Falls Risk Screening/Assistive Devices Have you fallen in the past year?: No 11/26/24 1330 <Electronically signed by Maite Griffin> Date _ Maite Arceo D.C. Cosigner Signature: Date (if applicable) CC: ~ [facility] Work Phone: Progress note Author Maite Arceo [facility] Note Date/Time December 24, 2024 1 2:55pm [facility] [address] [place], [place] [id number] OFFICE VISIT Date of Service: 12/24/24 MR#: [id number] Acct: [id number] Name: ANTONIO DECKER Rep #: [id number] : 1945 Provider: JOSIAS Arceo Age/Sex: 79/F Location: [facility] Status: Signed Intake Vital Signs 10/17/24 13:23 Height 5 ft 5 in Intake Visit Reasons: Back pain Chief Complaint: neck and low back discomfort Is patient in pain?: Yes (neck and low back ) Pain scale (1-10): 3 Allergies ciprofloxacin Allergy (Intermediate, Verified 12/24/24 11:39) Other amoxicillin (Amoxicillin) Allergy (Verified 12/24/24 11:39) Hives clarithromycin Allergy (Verified 12/24/24 11:39) Rash naproxen Allergy (Verified 12/24/24 11:39) Hives nizatidine (From Axid) Allergy (Verified 12/24/24 11:39) Hives Sulfa (Sulfonamide Antibiotics) Allergy (Verified 12/24/24 11:39) Rash latex Adverse Reaction (Verified 12/24/24 11:39) Rash levofloxacin (From Levaquin) Adverse Reaction (Verified 12/24/24 11:39) Other Medications ?Medication ?Instructions ?Recorded ?Confirmed ?Type diclofenac sodium 1 % topical gel 100 g TP PRN PRN Maru n 07/11/18 12/24/24 History fluticasone propionate 50 2 spray NASAL DAILY 07/11/18 12/24/24 History mcg/actuation nasal spray,suspension L.acidoph,paracasei,B.animalis 10 1 ea PO DAILY 12/24/24 History billion cell capsule ascorbic acid (vitamin C) 500 mg 500 mg PO BID 0 12/24/24 History capsule biotin 5 mg tablet 5 mg PO DAILY 12/05/1912/24 History cetirizine 10 mg tablet (Zyrtec) 10 mg PO DAILY 12/24/24 History calcitriol 0.25 mcg capsule 0.25 mcg PO QDAY 03/15/24 12/24/24 History cod liver oil 1 cap PO .6xday 03/15/24 History cranberry 500 mg capsule 500 mg PO TID 03/15/2412/24 History estrogen ring vaginal 03/15/24 12/24/24 Hi story magnesium 250 mg tablet 400 mg PO DAILY 03/15/24 History rosuvastatin 5 mg tablet 5 mg PO QDAY 03/15/24 History budesonide 3 mg 3 mg PO .COMPLEX #210 ea 06/2912/24/24 Rx capsule,delayed,extended release ondansetron HCl 4 mg tablet 4 mg PO .COMPLEX #5 tabs 0 05/08/24 12/24/24 Rx [id number] 140 gram-sod sulfate 9 See Rx Instructions PO .COMPLEX #3 05/08/24 12/24/24 Rx gram-NaCl 5.2gram-KCl-C oral pwdr ea packs (Plenvu) Have you fallen in the past year?: No PFSH Medical History Urinary tract infection Vaginal atrophy Osteoarthritis Osteopenia Hypoglycemia Coronary artery disease FH: cataracts Seasonal allergies Anxiety Diverticulosis of colon Diarrhea Osteoporosis GERD (gastroesophageal reflux disease) History of reactive hypoglycemia History of UTI Family History Other Arthritis Bowel disease Heart disease Hyperlipidemia Osteoporosis Respiratory disease Suicide attempt Thyroid disorder Social History Smoking Status: Former smoker alcohol intake: current alcohol intake frequency: a few times a week Alcohol type: wine substance use type: former substance user Date of last use: marijuana and amphetamines in her 20's what type of physical activity do you participate in: walking and weight training frequency: 5-6 times per week HPI Back pain Chief Complaint: low back and neck pain Visit Number: 11 Details: ANTONIO DECKER is a 79 year old female here to follow up for ongoing neck and back pain. Pt. reports she continues to experience stiffness on the left side ofher neck that extends into her left trap. She states it is a pulling sensation. She denies recent ARRIAGA's. She states her left low back pain is a mild ache. She rates her overall pain 3/10 today. She continues to get massages weekly and is doing PT for balance. She states prolonged periods of walking and standing aggravate her pain and discomfort. Pt. denies new injury, numbness or tingling. She stays active, goes to the gym, does her PT exercises and stretches at home. She reports chiropractic adjustments are helpful in relieving some her pain and discomfort but it gradually returns. Location: low back/neck Duration: intermittent Aggravating or associated factors: bending,standing,sleeping Relieving factors: chiro,massage,acu Pain Quality: aching and dull Exam Musc General: Yes normal gait, joint tenderness and decreased range of motion; No normal posture Cervical Spine: Yes cervical muscular tenderness bilateral diffuse , Yes cervical spasm left greater than right diffuse trapezius, paracervical muscles and intrinsics and Yes misalignment misalignment: C6 and C7 Thoracic/Lumber: No thoracic and lumbar spine normal to inspection (High Left Shoulder), Yes paraspinal tenderness bilaterally in the upper thoracic, in the mid thoracic and in the lower thoracic and on the left greater than right (lumbopelvic), Yes thoraco-lumbar spasm on the right greater than left (trap, rhomboid, psoas) and on the left greater than right (paraspinal (L3-L5), glute) and Yes misalignment T2, T3, T4, T9, T10, L3, L4, L5 and LIL Sacroiliac joints: on the left tender to palpation Office Procedures Procedures - Chiropractic Procedures Manipulation: Cervical C6, Lumbar L3, Thoracic T2 and T10 and Pelvis LIL Manipulation: 3-4 regions Patient Response: positive Assessment and Plan Assessment and Plan (1) Segmental and somatic dysfunction of cervical region: Status: Acute (2) Segmental and somatic dysfunction of thoracic region: Status: Acute (3) Segmental and somatic dysfunction of lumbar region: Status: Acute (4) Segmental and somatic dysfunction of pelvic region: Status: Acute (5) 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 Continue care as needed. She is showing slight improvement. continue care. Plan Details Goals & Barriers: Goals Decrease pain Decrease spasm Improve ROM Barriers DDD Follow Up: 1 Month Coding Level of Care Code No Charge Diagnoses Segmental and somatic dysfunction of cervical region M99.01 Segmental and somatic dysfunction of thoracic region M99.02 Segmental and somatic dysfunction of lumbar region M99.03 Segmental and somatic dysfunction of pelvic region M99.05 Degeneration of intervertebral disc of thoracic region M51.34 CPT Codes Procedures - Manipulation: 3-4 regions ([id number]) Clinical Quality Measures Falls Risk Screening/Assistive Devices Have you fallen in the past year?: No 12/24/24 1423 <Electronically signed by Maite Griffin> Date _ Maite Arceo D.C. Cosigner Signature: Date (if applicable) CC: ~ [facility] Work Phone: Reason for referral (narrative)No [facility] Work Phone: Summary Purpose Family History No Family History Records Found Relationship Condition Age at Onset Recorded Date/T luis Not Specified Arthritis Unknown Cardiac disease Unknown Hyperlipidemia Unknown Unknown Family Member Name Dates Details First Degree Relatives Comments:Prostate CA, Heart/ lung dx, High cholesterol, Kidney dx, Stroke, traumataic , thyroid dx, ulcer dx Status:Active Unknown Family Member Name Dates Details First Degree Relatives Comments:Prostate CA, Heart/ lung dx, High cholesterol, Kidney dx, Stroke, traumataic , thyroid dx, ulcer dx Status:Active Unknown Family Member Name Dates Details First Degree Relatives Comments:Prostate CA, Heart/ lung dx, High cholesterol, Kidney dx, Stroke, traumataic , thyroid dx, ulcer dx Status:Active Unknown Family Member Name Dates Details First Degree Relatives Comments:Prostate CA, Heart/ lung dx, High cholesterol, Kidney dx, Stroke, traumataic , thyroid dx, ulcer dx Status:Active Relationship Condition Age at Onset Recorded Date/T luis Not Specified Disorder of intestine Unknown Osteoporosis Unknown Arthritis Unknown Cardiac disease Unknown Hyperlipidemia Unknown Attempted suicide Unknown Disorder of respiratory system Unknown Disorder of thyroid Unknown Advance Directives No Advanced Directives Records Found Advance Directive Response Recorded Date/ Time Advance Directives Yes May 29, 2 021 2:33pm Living Will Yes May 29, 2020 2:33pm Power of Security Police Officer Yes May 29 2:33pm Advance Directive Response Recorded Date/ Time Advance Directives Yes May 29, 2 021 1:33pm Living Will Yes May 29, 2020 1:33pm Power of Security Police Officer Yes May 29 1:33pm Advance Directive Response Recorded Date/ Time Living Will Yes February 26, 2 023 8:58pm Power of Security Police Officer Yes February 26, 2023 8:58pm Advance Directives Yes May 29, 2 021 2:33pm Advance Directive Response Recorded Date/ Time Advance Directives Yes May 29, 2 021 2:33pm Advance Directive Response Recorded Date/ Time Advance Directives Yes June 06 3:18pm Advance Directive Response Recorded Date/ Time Advance Directives Yes October 08, 2 025 2:01pm Advance Directive Response Recorded Date/ Time Advance Directives Yes October 08, 2 025 1:01pm Procedure Findings Note HNO ID: [id number] Author: Demetri Shipley Service: Gastroenterology Author Type: Physician Type: Brief Op Note Filed: 08/06/2019 1:26 PM Note Text: BRIEF OPERATIVE NOTE PATIENT NAME: Antonio Decker LOG ID: [id number] Surgery Date: 08/06/2019 Surgeon(s) and Analytical Research Chemist(s): Javy Shipley MD -Primary Procedure(s): Procedure(s) (LRB): COLONOSCOPY (N/A) Anesthesia: Procedural Sedation Findings: Normal exam Estimated Blood Loss: 0 ml Specimens: None Preop Diagnosis: History of colon polyps [Z86.010] Postop Diagnosis: History of colon polyps [Z86.010] SIGNATURE: Javy Shipley MD DATE: August 06, 2019 TIME: 1:25 PM Chief Complaint and Reason for Visit Chief Complaint Back pain Back pain LT ANKLE ARTHRITIS, INSTABILITY/ RX HERE Back pain BACK PAIN Reason for Visit Back pain Neck pain Segmental and somatic dysfunction of cervical region Segmental and somatic dysfunction of lumbar region Segmental and somatic dysfunction of pelvic region Segmental and somatic dysfunction of thoracic region Degeneration of intervertebral disc of thoracic region Back pain Neck pain Segmental and somatic dysfunction of cervical region Segmental and somatic dysfunction of lumbar region Segmental and somatic dysfunction of pelvic region Segmental and somatic dysfunction of thoracic region Degeneration of intervertebral disc of thoracic region Back pain Neck pain Segmental and somatic dysfunction of cervical region Segmental and somatic dysfunction of lumbar region Segmental and somatic dysfunction of pelvic region Segmental and somatic dysfunction of thoracic region Degeneration of intervertebral disc of thoracic region Back pain Segmental and somatic dysfunction of cervical region Segmental and somatic dysfunction of lumbar region Segmental and somatic dysfunction of pelvic region Segmental and somatic dysfunction of thoracic region Degeneration of intervertebral disc of thoracic region Chief Complaint BACK PAIN Back pain Back pain Back pain Back pain Reason for Visit Back pain Segmental and somatic dysfunction of cervical region Segmental and somatic dysfunction of lumbar region Segmental and somatic dysfunction of pelvic region Segmental and somatic dysfunction of thoracic region Degeneration of intervertebral disc of thoracic region Neck pain Segmental and somatic dysfunction of cervical region Segmental and somatic dysfunction of lumbar region Segmental and somatic dysfunction of pelvic region Segmental and somatic dysfunction of thoracic region Degeneration of intervertebral disc of thoracic region Back pain Neck pain Segmental and somatic dysfunction of cervical region Segmental and somatic dysfunction of lumbar region Segmental and somatic dysfunction of pelvic region Segmental and somatic dysfunction of thoracic region Degeneration of intervertebral disc of thoracic region Back pain Neck pain Segmental and somatic dysfunction of cervical region Segmental and somatic dysfunction of lumbar region Segmental and somatic dysfunction of pelvic region Segmental and somatic dysfunction of thoracic region Degeneration of intervertebral disc of thoracic region Back pain Neck pain Segmental and somatic dysfunction of cervical region Segmental and somatic dysfunction of lumbar region Segmental and somatic dysfunction of pelvic region Segmental and somatic dysfunction of thoracic region Degeneration of intervertebral disc of thoracic region Chief Complaint Back pain Back pain Back pain Back pain RECLAST Back pain Reason for Visit Back pain Neck pain Segmental and somatic dysfunction of cervical region Segmental and somatic dysfunction of lumbar region Segmental and somatic dysfunction of pelvic region Segmental and somatic dysfunction of thoracic region Degeneration of intervertebral disc of thoracic region Back pain Neck pain Segmental and somatic dysfunction of cervical region Segmental and somatic dysfunction of lumbar region Segmental and somatic dysfunction of pelvic region Segmental and somatic dysfunction of thoracic region Degeneration of intervertebral disc of thoracic region Back pain Neck pain Segmental and somatic dysfunction of cervical region Segmental and somatic dysfunction of lumbar region Segmental and somatic dysfunction of pelvic region Segmental and somatic dysfunction of thoracic region Degeneration of intervertebral disc of thoracic region Back pain Neck pain Segmental and somatic dysfunction of cervical region Segmental and somatic dysfunction of lumbar region Segmental and somatic dysfunction of pelvic region Segmental and somatic dysfunction of thoracic region Degeneration of intervertebral disc of thoracic region Back pain Neck pain Segmental and somatic dysfunction of cervical region Segmental and somatic dysfunction of lumbar region Segmental and somatic dysfunction of pelvic region Segmental and somatic dysfunction of thoracic region Degeneration of intervertebral disc of thoracic region Chief Complaint Back pain Back pain Back pain Back pain RECLAST Back pain Back pain BACK PAIN LEG PN AND LBP/RX HERE Reason for Visit Back pain Neck pain Segmental and somatic dysfunction of cervical region Segmental and somatic dysfunction of lumbar region Segmental and somatic dysfunction of pelvic region Segmental and somatic dysfunction of thoracic region Degeneration of intervertebral disc of thoracic region Back pain Neck pain Segmental and somatic dysfunction of cervical region Segmental and somatic dysfunction of lumbar region Segmental and somatic dysfunction of pelvic region Segmental and somatic dysfunction of thoracic region Degeneration of intervertebral disc of thoracic region Back pain Neck pain Segmental and somatic dysfunction of cervical region Segmental and somatic dysfunction of lumbar region Segmental and somatic dysfunction of pelvic region Segmental and somatic dysfunction of thoracic region Degeneration of intervertebral disc of thoracic region Back pain Neck pain Segmental and somatic dysfunction of cervical region Segmental and somatic dysfunction of lumbar region Segmental and somatic dysfunction of pelvic region Segmental and somatic dysfunction of thoracic region Degeneration of intervertebral disc of thoracic region Back pain Neck pain Segmental and somatic dysfunction of cervical region Segmental and somatic dysfunction of lumbar region Segmental and somatic dysfunction of pelvic region Segmental and somatic dysfunction of thoracic region Degeneration of intervertebral disc of thoracic region Back pain Segmental and somatic dysfunction of cervical region Segmental and somatic dysfunction of lumbar region Segmental and somatic dysfunction of pelvic region Segmental and somatic dysfunction of thoracic region Degeneration of intervertebral disc of thoracic region Chief Complaint Back pain Back pain RECLAST Back pain Back pain BACK PAIN Back pain LEG PN AND LBP/RX HERE Back pain Back pain Reason for Visit Back pain Neck pain Segmental and somatic dysfunction of cervical region Segmental and somatic dysfunction of lumbar region Segmental and somatic dysfunction of pelvic region Segmental and somatic dysfunction of thoracic region Degeneration of intervertebral disc of thoracic region Back pain Neck pain Segmental and somatic dysfunction of cervical region Segmental and somatic dysfunction of lumbar region Segmental and somatic dysfunction of pelvic region Segmental and somatic dysfunction of thoracic region Degeneration of intervertebral disc of thoracic region Back pain Neck pain Segmental and somatic dysfunction of cervical region Segmental and somatic dysfunction of lumbar region Segmental and somatic dysfunction of pelvic region Segmental and somatic dysfunction of thoracic region Degeneration of intervertebral disc of thoracic region Back pain Segmental and somatic dysfunction of cervical region Segmental and somatic dysfunction of lumbar region Segmental and somatic dysfunction of pelvic region Segmental and somatic dysfunction of thoracic region Degeneration of intervertebral disc of thoracic region Back pain Segmental and somatic dysfunction of cervical region Segmental and somatic dysfunction of lumbar region Segmental and somatic dysfunction of pelvic region Segmental and somatic dysfunction of thoracic region DDD (degenerative disc disease) Back pain Segmental and somatic dysfunction of cervical region Segmental and somatic dysfunction of lumbar region Segmental and somatic dysfunction of pelvic region Segmental and somatic dysfunction of thoracic region DDD (degenerative disc disease) Back pain Segmental and somatic dysfunction of cervical region Segmental and somatic dysfunction of lumbar region Segmental and somatic dysfunction of pelvic region Segmental and somatic dysfunction of thoracic region DDD (degenerative disc disease) Chief Complaint Back pain RECLAST Back pain Back pain BACK PAIN Back pain LEG PN AND LBP/RX HERE Back pain Back pain ABNORMAL BLEEDING Reason for Visit Back pain Neck pain Segmental and somatic dysfunction of cervical region Segmental and somatic dysfunction of lumbar region Segmental and somatic dysfunction of pelvic region Segmental and somatic dysfunction of thoracic region Degeneration of intervertebral disc of thoracic region Back pain Neck pain Segmental and somatic dysfunction of cervical region Segmental and somatic dysfunction of lumbar region Segmental and somatic dysfunction of pelvic region Segmental and somatic dysfunction of thoracic region Degeneration of intervertebral disc of thoracic region Back pain Segmental and somatic dysfunction of cervical region Segmental and somatic dysfunction of lumbar region Segmental and somatic dysfunction of pelvic region Segmental and somatic dysfunction of thoracic region Degeneration of intervertebral disc of thoracic region Back pain Segmental and somatic dysfunction of cervical region Segmental and somatic dysfunction of lumbar region Segmental and somatic dysfunction of pelvic region Segmental and somatic dysfunction of thoracic region DDD (degenerative disc disease) Back pain Segmental and somatic dysfunction of cervical region Segmental and somatic dysfunction of lumbar region Segmental and somatic dysfunction of pelvic region Segmental and somatic dysfunction of thoracic region DDD (degenerative disc disease) Back pain Segmental and somatic dysfunction of cervical region Segmental and somatic dysfunction of lumbar region Segmental and somatic dysfunction of pelvic region Segmental and somatic dysfunction of thoracic region DDD (degenerative disc disease) Chief Complaint RECLAST Back pain Back pain BACK PAIN Back pain LEG PN AND LBP/RX HERE Back pain Back pain ABNORMAL BLEEDING Back pain ABNORMAL BLEEDING Reason for Visit Back pain Neck pain Segmental and somatic dysfunction of cervical region Segmental and somatic dysfunction of lumbar region Segmental and somatic dysfunction of pelvic region Segmental and somatic dysfunction of thoracic region Degeneration of intervertebral disc of thoracic region Back pain Segmental and somatic dysfunction of cervical region Segmental and somatic dysfunction of lumbar region Segmental and somatic dysfunction of pelvic region Segmental and somatic dysfunction of thoracic region Degeneration of intervertebral disc of thoracic region Back pain Segmental and somatic dysfunction of cervical region Segmental and somatic dysfunction of lumbar region Segmental and somatic dysfunction of pelvic region Segmental and somatic dysfunction of thoracic region DDD (degenerative disc disease) Back pain Segmental and somatic dysfunction of cervical region Segmental and somatic dysfunction of lumbar region Segmental and somatic dysfunction of pelvic region Segmental and somatic dysfunction of thoracic region DDD (degenerative disc disease) Back pain Segmental and somatic dysfunction of cervical region Segmental and somatic dysfunction of lumbar region Segmental and somatic dysfunction of pelvic region Segmental and somatic dysfunction of thoracic region DDD (degenerative disc disease) Back pain Segmental and somatic dysfunction of cervical region Segmental and somatic dysfunction of lumbar region Segmental and somatic dysfunction of pelvic region Segmental and somatic dysfunction of thoracic region DDD (degenerative disc disease) Chief Complaint Back pain Back pain BACK PAIN Back pain LEG PN AND LBP/RX HERE Back pain Back pain ABNORMAL BLEEDING Back pain ABNORMAL BLEEDING Reason for Visit Back pain Neck pain Segmental and somatic dysfunction of cervical region Segmental and somatic dysfunction of lumbar region Segmental and somatic dysfunction of pelvic region Segmental and somatic dysfunction of thoracic region Degeneration of intervertebral disc of thoracic region Back pain Segmental and somatic dysfunction of cervical region Segmental and somatic dysfunction of lumbar region Segmental and somatic dysfunction of pelvic region Segmental and somatic dysfunction of thoracic region Degeneration of intervertebral disc of thoracic region Back pain Segmental and somatic dysfunction of cervical region Segmental and somatic dysfunction of lumbar region Segmental and somatic dysfunction of pelvic region Segmental and somatic dysfunction of thoracic region DDD (degenerative disc disease) Back pain Segmental and somatic dysfunction of cervical region Segmental and somatic dysfunction of lumbar region Segmental and somatic dysfunction of pelvic region Segmental and somatic dysfunction of thoracic region DDD (degenerative disc disease) Back pain Segmental and somatic dysfunction of cervical region Segmental and somatic dysfunction of lumbar region Segmental and somatic dysfunction of pelvic region Segmental and somatic dysfunction of thoracic region DDD (degenerative disc disease) Back pain Segmental and somatic dysfunction of cervical region Segmental and somatic dysfunction of lumbar region Segmental and somatic dysfunction of pelvic region Segmental and somatic dysfunction of thoracic region DDD (degenerative disc disease) Chief Complaint Back pain LEG PN AND LBP/RX HERE Back pain Back pain ABNORMAL BLEEDING Back pain ABNORMAL BLEEDING EORDER- DROPOFF STOOL Back pain Back pain Reason for Visit Back pain Segmental and somatic dysfunction of cervical region Segmental and somatic dysfunction of lumbar region Segmental and somatic dysfunction of pelvic region Segmental and somatic dysfunction of thoracic region DDD (degenerative disc disease) Back pain Segmental and somatic dysfunction of cervical region Segmental and somatic dysfunction of lumbar region Segmental and somatic dysfunction of pelvic region Segmental and somatic dysfunction of thoracic region DDD (degenerative disc disease) Back pain Segmental and somatic dysfunction of cervical region Segmental and somatic dysfunction of lumbar region Segmental and somatic dysfunction of pelvic region Segmental and somatic dysfunction of thoracic region DDD (degenerative disc disease) Back pain Segmental and somatic dysfunction of cervical region Segmental and somatic dysfunction of lumbar region Segmental and somatic dysfunction of pelvic region Segmental and somatic dysfunction of thoracic region DDD (degenerative disc disease) Back pain Segmental and somatic dysfunction of cervical region Segmental and somatic dysfunction of lumbar region Segmental and somatic dysfunction of pelvic region Segmental and somatic dysfunction of thoracic region DDD (degenerative disc disease) Back pain Segmental and somatic dysfunction of cervical region Segmental and somatic dysfunction of lumbar region Segmental and somatic dysfunction of pelvic region Segmental and somatic dysfunction of thoracic region DDD (degenerative disc disease) Chief Complaint Back pain ABNORMAL BLEEDING Back pain ABNORMAL BLEEDING EORDER- DROPOFF STOOL Back pain Back pain Back pain Back pain Reason for Visit Back pain Segmental and somatic dysfunction of cervical region Segmental and somatic dysfunction of lumbar region Segmental and somatic dysfunction of pelvic region Segmental and somatic dysfunction of thoracic region DDD (degenerative disc disease) Back pain Segmental and somatic dysfunction of cervical region Segmental and somatic dysfunction of lumbar region Segmental and somatic dysfunction of pelvic region Segmental and somatic dysfunction of thoracic region DDD (degenerative disc disease) Back pain Segmental and somatic dysfunction of cervical region Segmental and somatic dysfunction of lumbar region Segmental and somatic dysfunction of pelvic region Segmental and somatic dysfunction of thoracic region DDD (degenerative disc disease) Back pain Segmental and somatic dysfunction of cervical region Segmental and somatic dysfunction of lumbar region Segmental and somatic dysfunction of pelvic region Segmental and somatic dysfunction of thoracic region DDD (degenerative disc disease) Back pain Segmental and somatic dysfunction of lumbar region Segmental and somatic dysfunction of pelvic region Segmental and somatic dysfunction of thoracic region DDD (degenerative disc disease) Back pain Segmental and somatic dysfunction of lumbar region Segmental and somatic dysfunction of pelvic region Segmental and somatic dysfunction of thoracic region DDD (degenerative disc disease) Chief Complaint ABNORMAL BLEEDING Back pain ABNORMAL BLEEDING EORDER- DROPOFF STOOL Back pain Back pain Back pain Back pain Back pain Back pain Back pain Back pain dry needle/adjustment DRY NEEDLING/ADJUSTMENT Back DRY NEDDLING/ADJUSTMENT LT ACHILLIES TENDINITIS. RX HERE Reason for Visit Back pain Segmental and somatic dysfunction of cervical region Segmental and somatic dysfunction of lumbar region Segmental and somatic dysfunction of pelvic region Segmental and somatic dysfunction of thoracic region DDD (degenerative disc disease) Back pain Segmental and somatic dysfunction of cervical region Segmental and somatic dysfunction of lumbar region Segmental and somatic dysfunction of pelvic region Segmental and somatic dysfunction of thoracic region DDD (degenerative disc disease) Back pain Segmental and somatic dysfunction of cervical region Segmental and somatic dysfunction of lumbar region Segmental and somatic dysfunction of pelvic region Segmental and somatic dysfunction of thoracic region DDD (degenerative disc disease) Back pain Segmental and somatic dysfunction of lumbar region Segmental and somatic dysfunction of pelvic region Segmental and somatic dysfunction of thoracic region DDD (degenerative disc disease) Back pain Segmental and somatic dysfunction of lumbar region Segmental and somatic dysfunction of pelvic region Segmental and somatic dysfunction of thoracic region DDD (degenerative disc disease) Back pain Segmental and somatic dysfunction of lumbar region Segmental and somatic dysfunction of pelvic region Segmental and somatic dysfunction of thoracic region DDD (degenerative disc disease) Back pain Segmental and somatic dysfunction of lumbar region Segmental and somatic dysfunction of pelvic region DDD (degenerative disc disease) Back pain Segmental and somatic dysfunction of lumbar region Segmental and somatic dysfunction of pelvic region DDD (degenerative disc disease) Back pain Segmental and somatic dysfunction of lumbar region Segmental and somatic dysfunction of pelvic region DDD (degenerative disc disease) Back pain Segmental and somatic dysfunction of lumbar region Segmental and somatic dysfunction of pelvic region DDD (degenerative disc disease) Back pain Segmental and somatic dysfunction of lumbar region Segmental and somatic dysfunction of pelvic region DDD (degenerative disc disease) Back pain Segmental and somatic dysfunction of lumbar region Segmental and somatic dysfunction of pelvic region DDD (degenerative disc disease) Back pain Segmental and somatic dysfunction of lumbar region Segmental and somatic dysfunction of pelvic region DDD (degenerative disc disease) Chief Complaint ABNORMAL BLEEDING Back pain ABNORMAL BLEEDING EORDER- DROPOFF STOOL Back pain Back pain Back pain Back pain Back pain Back pain Back pain Back pain dry needle/adjustment DRY NEEDLING/ADJUSTMENT Back DRY NEDDLING/ADJUSTMENT LT ACHILLIES TENDINITIS. RX HERE Back pain DRY NEEDLING/ADJUSTMENT Back pain LOW BACK PAIN Reason for Visit Back pain Segmental and somatic dysfunction of cervical region Segmental and somatic dysfunction of lumbar region Segmental and somatic dysfunction of pelvic region Segmental and somatic dysfunction of thoracic region DDD (degenerative disc disease) Back pain Segmental and somatic dysfunction of cervical region Segmental and somatic dysfunction of lumbar region Segmental and somatic dysfunction of pelvic region Segmental and somatic dysfunction of thoracic region DDD (degenerative disc disease) Back pain Segmental and somatic dysfunction of cervical region Segmental and somatic dysfunction of lumbar region Segmental and somatic dysfunction of pelvic region Segmental and somatic dysfunction of thoracic region DDD (degenerative disc disease) Back pain Segmental and somatic dysfunction of lumbar region Segmental and somatic dysfunction of pelvic region Segmental and somatic dysfunction of thoracic region DDD (degenerative disc disease) Back pain Segmental and somatic dysfunction of lumbar region Segmental and somatic dysfunction of pelvic region Segmental and somatic dysfunction of thoracic region DDD (degenerative disc disease) Back pain Segmental and somatic dysfunction of lumbar region Segmental and somatic dysfunction of pelvic region Segmental and somatic dysfunction of thoracic region DDD (degenerative disc disease) Back pain Segmental and somatic dysfunction of lumbar region Segmental and somatic dysfunction of pelvic region DDD (degenerative disc disease) Back pain Segmental and somatic dysfunction of lumbar region Segmental and somatic dysfunction of pelvic region DDD (degenerative disc disease) Back pain Segmental and somatic dysfunction of lumbar region Segmental and somatic dysfunction of pelvic region DDD (degenerative disc disease) Back pain Segmental and somatic dysfunction of lumbar region Segmental and somatic dysfunction of pelvic region DDD (degenerative disc disease) Back pain Segmental and somatic dysfunction of lumbar region Segmental and somatic dysfunction of pelvic region DDD (degenerative disc disease) Back pain Segmental and somatic dysfunction of lumbar region Segmental and somatic dysfunction of pelvic region DDD (degenerative disc disease) Back pain Segmental and somatic dysfunction of lumbar region Segmental and somatic dysfunction of pelvic region DDD (degenerative disc disease) Back pain Segmental and somatic dysfunction of lumbar region Segmental and somatic dysfunction of pelvic region DDD (degenerative disc disease) Back pain Segmental and somatic dysfunction of lumbar region Segmental and somatic dysfunction of pelvic region DDD (degenerative disc disease) Back pain Segmental and somatic dysfunction of lumbar region Segmental and somatic dysfunction of pelvic region DDD (degenerative disc disease) Chief Complaint Back pain ABNORMAL BLEEDING EORDER- DROPOFF STOOL Back pain Back pain Back pain Back pain Back pain Back pain Back pain Back pain dry needle/adjustment DRY NEEDLING/ADJUSTMENT Back DRY NEDDLING/ADJUSTMENT LT ACHILLIES TENDINITIS. RX HERE Back pain DRY NEEDLING/ADJUSTMENT Back pain LOW BACK PAIN Back pain CELIAC PROFILE/CRP Reason for Visit Back pain Segmental and somatic dysfunction of cervical region Segmental and somatic dysfunction of lumbar region Segmental and somatic dysfunction of pelvic region Segmental and somatic dysfunction of thoracic region DDD (degenerative disc disease) Back pain Segmental and somatic dysfunction of cervical region Segmental and somatic dysfunction of lumbar region Segmental and somatic dysfunction of pelvic region Segmental and somatic dysfunction of thoracic region DDD (degenerative disc disease) Back pain Segmental and somatic dysfunction of cervical region Segmental and somatic dysfunction of lumbar region Segmental and somatic dysfunction of pelvic region Segmental and somatic dysfunction of thoracic region DDD (degenerative disc disease) Back pain Segmental and somatic dysfunction of lumbar region Segmental and somatic dysfunction of pelvic region Segmental and somatic dysfunction of thoracic region DDD (degenerative disc disease) Back pain Segmental and somatic dysfunction of lumbar region Segmental and somatic dysfunction of pelvic region Segmental and somatic dysfunction of thoracic region DDD (degenerative disc disease) Back pain Segmental and somatic dysfunction of lumbar region Segmental and somatic dysfunction of pelvic region Segmental and somatic dysfunction of thoracic region DDD (degenerative disc disease) Back pain Segmental and somatic dysfunction of lumbar region Segmental and somatic dysfunction of pelvic region DDD (degenerative disc disease) Back pain Segmental and somatic dysfunction of lumbar region Segmental and somatic dysfunction of pelvic region DDD (degenerative disc disease) Back pain Segmental and somatic dysfunction of lumbar region Segmental and somatic dysfunction of pelvic region DDD (degenerative disc disease) Back pain Segmental and somatic dysfunction of lumbar region Segmental and somatic dysfunction of pelvic region DDD (degenerative disc disease) Back pain Segmental and somatic dysfunction of lumbar region Segmental and somatic dysfunction of pelvic region DDD (degenerative disc disease) Back pain Segmental and somatic dysfunction of lumbar region Segmental and somatic dysfunction of pelvic region DDD (degenerative disc disease) Back pain Segmental and somatic dysfunction of lumbar region Segmental and somatic dysfunction of pelvic region DDD (degenerative disc disease) Back pain Segmental and somatic dysfunction of lumbar region Segmental and somatic dysfunction of pelvic region DDD (degenerative disc disease) Back pain Segmental and somatic dysfunction of lumbar region Segmental and somatic dysfunction of pelvic region DDD (degenerative disc disease) Back pain Segmental and somatic dysfunction of lumbar region Segmental and somatic dysfunction of pelvic region DDD (degenerative disc disease) Back pain Segmental and somatic dysfunction of lumbar region Segmental and somatic dysfunction of pelvic region DDD (degenerative disc disease) Chief Complaint DRY NEDDLING/ADJUSTM ENT LT ACHILLIES TENDINITIS. RX HERE Back pain DRY NEEDLING/ADJUSTMENT Back pain LOW BACK PAIN Back pain CELIAC PROFILE/CRP BACK PAIN Back pain Reason for Visit Back pain Segmental and somatic dysfunction of lumbar region Segmental and somatic dysfunction of pelvic region DDD (degenerative disc disease) Back pain Segmental and somatic dysfunction of lumbar region Segmental and somatic dysfunction of pelvic region DDD (degenerative disc disease) Back pain Segmental and somatic dysfunction of lumbar region Segmental and somatic dysfunction of pelvic region DDD (degenerative disc disease) Back pain Segmental and somatic dysfunction of lumbar region Segmental and somatic dysfunction of pelvic region DDD (degenerative disc disease) Back pain Segmental and somatic dysfunction of lumbar region Segmental and somatic dysfunction of pelvic region DDD (degenerative disc disease) Back pain Segmental and somatic dysfunction of cervical region Segmental and somatic dysfunction of lumbar region Segmental and somatic dysfunction of pelvic region Segmental and somatic dysfunction of thoracic region DDD (degenerative disc disease) Back pain Segmental and somatic dysfunction of cervical region Segmental and somatic dysfunction of lumbar region Segmental and somatic dysfunction of pelvic region Segmental and somatic dysfunction of thoracic region DDD (degenerative disc disease) Chief Complaint BACK PAIN Back pain Back pain EORDER Reason for Visit Back pain Segmental and somatic dysfunction of cervical region Segmental and somatic dysfunction of lumbar region Segmental and somatic dysfunction of pelvic region Segmental and somatic dysfunction of thoracic region DDD (degenerative disc disease) Back pain Segmental and somatic dysfunction of cervical region Segmental and somatic dysfunction of lumbar region Segmental and somatic dysfunction of pelvic region Segmental and somatic dysfunction of thoracic region DDD (degenerative disc disease) Back pain Segmental and somatic dysfunction of cervical region Segmental and somatic dysfunction of lumbar region Segmental and somatic dysfunction of pelvic region Segmental and somatic dysfunction of thoracic region DDD (degenerative disc disease) Chief Complaint BACK PAIN Back pain Back pain EORDER SCREENING Back pain Reason for Visit Back pain Segmental and somatic dysfunction of cervical region Segmental and somatic dysfunction of lumbar region Segmental and somatic dysfunction of pelvic region Segmental and somatic dysfunction of thoracic region DDD (degenerative disc disease) Back pain Segmental and somatic dysfunction of cervical region Segmental and somatic dysfunction of lumbar region Segmental and somatic dysfunction of pelvic region Segmental and somatic dysfunction of thoracic region DDD (degenerative disc disease) Back pain Segmental and somatic dysfunction of cervical region Segmental and somatic dysfunction of lumbar region Segmental and somatic dysfunction of pelvic region Segmental and somatic dysfunction of thoracic region DDD (degenerative disc disease) Back pain Segmental and somatic dysfunction of cervical region Segmental and somatic dysfunction of lumbar region Segmental and somatic dysfunction of pelvic region Segmental and somatic dysfunction of thoracic region DDD (degenerative disc disease) Chief Complaint BACK PAIN Back pain Back pain EORDER SCREENING Back pain EORDER RECLAST Reason for Visit Back pain Segmental and somatic dysfunction of cervical region Segmental and somatic dysfunction of lumbar region Segmental and somatic dysfunction of pelvic region Segmental and somatic dysfunction of thoracic region DDD (degenerative disc disease) Back pain Segmental and somatic dysfunction of cervical region Segmental and somatic dysfunction of lumbar region Segmental and somatic dysfunction of pelvic region Segmental and somatic dysfunction of thoracic region DDD (degenerative disc disease) Back pain Segmental and somatic dysfunction of cervical region Segmental and somatic dysfunction of lumbar region Segmental and somatic dysfunction of pelvic region Segmental and somatic dysfunction of thoracic region DDD (degenerative disc disease) Back pain Segmental and somatic dysfunction of cervical region Segmental and somatic dysfunction of lumbar region Segmental and somatic dysfunction of pelvic region Segmental and somatic dysfunction of thoracic region DDD (degenerative disc disease) Chief Complaint Back pain EORDER SCREENING Back pain EORDER RECLAST Back pain Back pain CAD PALPITATIONS Back pain Reason for Visit Back pain Segmental and somatic dysfunction of cervical region Segmental and somatic dysfunction of lumbar region Segmental and somatic dysfunction of pelvic region Segmental and somatic dysfunction of thoracic region DDD (degenerative disc disease) Back pain Segmental and somatic dysfunction of cervical region Segmental and somatic dysfunction of lumbar region Segmental and somatic dysfunction of pelvic region Segmental and somatic dysfunction of thoracic region DDD (degenerative disc disease) Back pain Segmental and somatic dysfunction of lumbar region Segmental and somatic dysfunction of pelvic region Segmental and somatic dysfunction of thoracic region DDD (degenerative disc disease) Back pain Segmental and somatic dysfunction of lumbar region Segmental and somatic dysfunction of pelvic region Segmental and somatic dysfunction of thoracic region DDD (degenerative disc disease) Back pain Segmental and somatic dysfunction of lumbar region Segmental and somatic dysfunction of pelvic region Segmental and somatic dysfunction of thoracic region DDD (degenerative disc disease) Chief Complaint Admit Date BACK PAIN January 17, 2024 2:27pm NECK PAIN. RX HERE February 09, 2024 1 2:00pm Back pain February 16, 2024 11:27am EST CARE March 15, 2024 12 :49pm Back pain March 19, 2024 1 1:33am Back pain April 30, 2024 1:27pm EORDER- STOOL May 01, 2024 3:33pm REDO THE STOOL, INT LABSPEC April 10:00am Reason for Visit Admit Date Segmental and somatic dysfunction of cer vical region January 17, 2024 2:27pm Segmental and somatic dysfunction of lum bar region January 17, 2024 2:27pm Segmental and somatic dysfunction of pel aissatou region January 17, 2024 2:27pm Segmental and somatic dysfunction of tho racic region January 17, 2024 2:27pm DDD (degenerative disc disease) January 17, 2024 2:27pm Segmental and somatic dysfunction of cer vical region February 16, 2024 11:27am Segmental and somatic dysfunction of lum bar region February 16, 2024 11:27am Segmental and somatic dysfunction of pel aissatou region February 16, 2024 11:27am Segmental and somatic dysfunction of tho racic region February 16, 2024 11:27am DDD (degenerative disc disease) February 16, 2024 11:27am Microscopic colitis March 15, 2024 12 :49pm Segmental and somatic dysfunction of cer vical region March 19, 2024 11:33am Segmental and somatic dysfunction of lum bar region March 19, 2024 11:33am Segmental and somatic dysfunction of pel aissatou region March 19, 2024 11:33am Segmental and somatic dysfunction of tho racic region March 19, 2024 11:33am DDD (degenerative disc disease) March 19, 2024 11:33am Segmental and somatic dysfunction of cer vical region April 30, 2024 1:27pm Segmental and somatic dysfunction of lum bar region April 30, 2024 1:27pm Segmental and somatic dysfunction of pel aissatou region April 30, 2024 1:27pm Segmental and somatic dysfunction of tho racic region April 30, 2024 1:27pm 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 RX HERE February 09, 2024 1 2:00pm Back pain February 16, 2024 11:27am EST CARE March 15, 2024 12 :49pm Back pain March 19, 2024 1 1:33am Back pain April 30, 2024 1:27pm EORDER- STOOL May 01, 2024 3:33pm REDO THE STOOL, INT LABSPEC April 10:00am Reason for Visit Admit Date Segmental and somatic dysfunction of cer vical region February 16, 2024 11:27am Segmental and somatic dysfunction of lum bar region February 16, 2024 11:27am Segmental and somatic dysfunction of pel aissatou region February 16, 2024 11:27am Segmental and somatic dysfunction of tho racic region February 16, 2024 11:27am DDD (degenerative disc disease) February 16, 2024 11:27am Microscopic colitis March 15, 2024 12 :49pm Segmental and somatic dysfunction of cer vical region March 19, 2024 11:33am Segmental and somatic dysfunction of lum bar region March 19, 2024 11:33am Segmental and somatic dysfunction of pel aissatou region March 19, 2024 11:33am Segmental and somatic dysfunction of tho racic region March 19, 2024 11:33am DDD (degenerative disc disease) March 19, 2024 11:33am Segmental and somatic dysfunction of cer vical region April 30, 2024 1:27pm Segmental and somatic dysfunction of lum bar region April 30, 2024 1:27pm Segmental and somatic dysfunction of pel aissatou region April 30, 2024 1:27pm Segmental and somatic dysfunction of tho racic region April 30, 2024 1:27pm 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 RX HERE February 09, 2024 1 2:00pm Back pain February 16, 2024 11:27am EST CARE March 15, 2024 12 :49pm Back pain March 19, 2024 1 1:33am Back pain April 30, 2024 1:27pm EORDER- STOOL May 01, 2024 3:33pm REDO THE STOOL, INT LABSPEC April 10:00am PREDIABETES May 29, 2024 12: 07pm BACK PAIN June 04, 2024 11: 00am Reason for Visit Admit Date Segmental and somatic dysfunction of cer vical region February 16, 2024 11:27am Segmental and somatic dysfunction of lum bar region February 16, 2024 11:27am Segmental and somatic dysfunction of pel aissatou region February 16, 2024 11:27am Segmental and somatic dysfunction of tho racic region February 16, 2024 11:27am DDD (degenerative disc disease) February 16, 2024 11:27am Microscopic colitis March 15, 2024 12 :49pm Segmental and somatic dysfunction of cer vical region March 19, 2024 11:33am Segmental and somatic dysfunction of lum bar region March 19, 2024 11:33am Segmental and somatic dysfunction of pel aissatou region March 19, 2024 11:33am Segmental and somatic dysfunction of tho racic region March 19, 2024 11:33am DDD (degenerative disc disease) March 19, 2024 11:33am Segmental and somatic dysfunction of cer vical region April 30, 2024 1:27pm Segmental and somatic dysfunction of lum bar region April 30, 2024 1:27pm Segmental and somatic dysfunction of pel aissatou region April 30, 2024 1:27pm Segmental and somatic dysfunction of tho racic region April 30, 2024 1:27pm 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 April 30, 2024 1:27pm Segmental and somatic dysfunction of cer vical region June 04, 2024 11:00am Segmental and somatic dysfunction of lum bar region June 04, 2024 11:00am Segmental and somatic dysfunction of pel aissat[place] region June 04, 2024 11:00am Segmental and somatic dysfunction of tho racic region June 04, 2024 11:00am 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 June 04, 2024 11:00am Chief Complaint Admit Date Back pain April 30, 2024 1:27pm EORDER- STOOL May 01, 2024 3:33pm REDO THE STOOL, INT LABSPEC April 10:00am PREDIABETES May 29, 2024 12: 07pm BACK PAIN June 04, 2024 11: 00am XRAY June 06, 2024 3:20 pm HIP PAIN RX HERE June 26, 2024 12: 52pm BACK PAIN July 02, 2024 10: 56am BACK PAIN July 31, 2024 11:27 am Reason for Visit Admit Date Segmental and somatic dysfunction of cer vical region April 30, 2024 1:27pm Segmental and somatic dysfunction of lum bar region April 30, 2024 1:27pm Segmental and somatic dysfunction of pel [place]at[place] region April 30, 2024 1:27pm Segmental and somatic dysfunction of tho racic region April 30, 2024 1:27pm 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 April 30, 2024 1:27pm Back pain June 04, 2024 11: 00am Segmental and somatic dysfunction of cer vical region June 04, 2024 11:00am Segmental and somatic dysfunction of lum bar region June 04, 2024 11:00am Segmental and somatic dysfunction of pel [place]at[place] region June 04, 2024 11:00am Segmental and somatic dysfunction of tho racic region June 04, 2024 11:00am 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 June 04, 2024 11:00am Back pain July 02, 2024 10: 56am Segmental and somatic dysfunction of cer vical region July 02, 2024 10:56am Segmental and somatic dysfunction of lum bar region July 02, 2024 10:56am Segmental and somatic dysfunction of pel [place] region July 02, 2024 10:56am Segmental and somatic dysfunction of tho racic region July 02, 2024 10:56am 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 July 02, 2024 10:56am Back pain July 31, 2024 11:27 am Segmental and somatic dysfunction of cer vical region July 31, 2024 11:27am Segmental and somatic dysfunction of lum bar region July 31, 2024 11:27am Segmental and somatic dysfunction of pel [place]at[place] region July 31, 2024 11:27am Segmental and somatic dysfunction of tho racic region July 31, 2024 11:27am 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 July 31, 2024 11:27am Chief Complaint Admit Date Back pain April 30, 2024 1:27pm EORDER- STOOL May 01, 2024 3:33pm REDO THE STOOL, INT LABSPEC April 10:00am PREDIABETES May 29, 2024 12: 07pm BACK PAIN June 04, 2024 11: 00am XRAY June 06, 2024 3:20 pm HIP PAIN RX HERE June 26, 2024 12: 52pm BACK PAIN July 02, 2024 10: 56am BACK PAIN July 31, 2024 11:27 am DIZZINESS AND GIDDINESS August 02, 2024 1 2:43pm Chief Complaint Admit Date Back pain April 30, 2024 1:27pm EORDER- STOOL May 01, 2024 3:33pm REDO THE STOOL, INT LABSPEC April 10:00am PREDIABETES May 29, 2024 12: 07pm BACK PAIN June 04, 2024 11: 00am XRAY June 06, 2024 3:20 pm HIP PAIN RX HERE June 26, 2024 12: 52pm BACK PAIN July 02, 2024 10: 56am BACK PAIN July 31, 2024 11:27 am DIZZINESS AND GIDDINESS August 02, 2024 1 2:43pm BACK PAIN August 09, 2024 9:30a m Reason for Visit Admit Date Segmental and somatic dysfunction of cer vical region April 30, 2024 1:27pm Segmental and somatic dysfunction of lum bar region April 30, 2024 1:27pm Segmental and somatic dysfunction of pel [place] region April 30, 2024 1:27pm Segmental and somatic dysfunction of tho racic region April 30, 2024 1:27pm 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 April 30, 2024 1:27pm Back pain June 04, 2024 11: 00am Segmental and somatic dysfunction of cer vical region June 04, 2024 11:00am Segmental and somatic dysfunction of lum bar region June 04, 2024 11:00am Segmental and somatic dysfunction of pel [place] region June 04, 2024 11:00am Segmental and somatic dysfunction of tho racic region June 04, 2024 11:00am 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 June 04, 2024 11:00am Back pain July 02, 2024 10: 56am Segmental and somatic dysfunction of cer vical region July 02, 2024 10:56am Segmental and somatic dysfunction of lum bar region July 02, 2024 10:56am Segmental and somatic dysfunction of pel [place] region July 02, 2024 10:56am Segmental and somatic dysfunction of tho racic region July 02, 2024 10:56am 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 July 02, 2024 10:56am Back pain July 31, 2024 11:27 am Segmental and somatic dysfunction of cer vical region July 31, 2024 11:27am Segmental and somatic dysfunction of lum bar region July 31, 2024 11:27am Segmental and somatic dysfunction of pel [place] region July 31, 2024 11:27am Segmental and somatic dysfunction of tho racic region July 31, 2024 11:27am 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 July 31, 2024 11:27am Segmental and somatic dysfunction of cer vical region August 09, 2024 9:30am Segmental and somatic dysfunction of lum bar region August 09, 2024 9:30am Segmental and somatic dysfunction of pel [place]at[place] region August 09, 2024 9:30am Segmental and somatic dysfunction of tho racic region August 09, 2024 9:30am DDD (degenerative disc disease) August 9:30am 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 August 09, 2024 9:30am Chief Complaint Admit Date Back pain April 30, 2024 1:27pm EORDER- STOOL May 01, 2024 3:33pm REDO THE STOOL, INT LABSPEC April 10:00am PREDIABETES May 29, 2024 12: 07pm BACK PAIN June 04, 2024 11: 00am XRAY June 06, 2024 3:20 pm HIP PAIN RX HERE June 26, 2024 12: 52pm BACK PAIN July 02, 2024 10: 56am BACK PAIN July 31, 2024 11:27 am DIZZINESS AND GIDDINESS August 02, 2024 1 2:43pm DIZZINESS AND GIDDINESS August 02, 2024 1 2:53pm BACK PAIN August 09, 2024 9:30a m ACUPUNCTURE/ADJUSTMENT August 23, 2024 2 :27pm Reason for Visit Admit Date Segmental and somatic dysfunction of cer vical region April 30, 2024 1:27pm Segmental and somatic dysfunction of lum bar region April 30, 2024 1:27pm Segmental and somatic dysfunction of pel [place]at[place] region April 30, 2024 1:27pm Segmental and somatic dysfunction of tho racic region April 30, 2024 1:27pm 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 April 30, 2024 1:27pm Back pain June 04, 2024 11: 00am Segmental and somatic dysfunction of cer vical region June 04, 2024 11:00am Segmental and somatic dysfunction of lum bar region June 04, 2024 11:00am Segmental and somatic dysfunction of pel [place] region June 04, 2024 11:00am Segmental and somatic dysfunction of tho racic region June 04, 2024 11:00am 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 June 04, 2024 11:00am Back pain July 02, 2024 10: 56am Segmental and somatic dysfunction of cer vical region July 02, 2024 10:56am Segmental and somatic dysfunction of lum bar region July 02, 2024 10:56am Segmental and somatic dysfunction of pel [place] region July 02, 2024 10:56am Segmental and somatic dysfunction of tho racic region July 02, 2024 10:56am 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 July 02, 2024 10:56am Back pain July 31, 2024 11:27 am Segmental and somatic dysfunction of cer vical region July 31, 2024 11:27am Segmental and somatic dysfunction of lum bar region July 31, 2024 11:27am Segmental and somatic dysfunction of pel [place] region July 31, 2024 11:27am Segmental and somatic dysfunction of tho racic region July 31, 2024 11:27am 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 July 31, 2024 11:27am Back pain August 09, 2024 9:30a m Segmental and somatic dysfunction of lum bar region August 09, 2024 9:30am Segmental and somatic dysfunction of pel [place]at[place] region August 09, 2024 9:30am Segmental and somatic dysfunction of tho racic region August 09, 2024 9:30am DDD (degenerative disc disease) August 9:30am 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 August 09, 2024 9:30am Segmental and somatic dysfunction of cer vical region August 23, 2024 2:27pm Segmental and somatic dysfunction of lum bar region August 23, 2024 2:27pm Segmental and somatic dysfunction of pel [place] region August 23, 2024 2:27pm Segmental and somatic dysfunction of tho racic region August 23, 2024 2:27pm DDD (degenerative disc disease) August 2:27pm 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 August 23, 2024 2:27pm Chief Complaint Admit Date Back pain April 30, 2024 1:27pm EORDER- STOOL May 01, 2024 3:33pm REDO THE STOOL, INT LABSPEC April 10:00am PREDIABETES May 29, 2024 12: 07pm BACK PAIN June 04, 2024 11: 00am XRAY June 06, 2024 3:20 pm HIP PAIN RX HERE June 26, 2024 12: 52pm BACK PAIN July 02, 2024 10: 56am BACK PAIN July 31, 2024 11:27 am DIZZINESS AND GIDDINESS August 02, 2024 1 2:43pm DIZZINESS AND GIDDINESS August 02, 2024 1 2:53pm BACK PAIN August 09, 2024 9:30a m ACUPUNCTURE/ADJUSTMENT August 23, 2024 2 :27pm ACUPUNCTURE/ADJUSTMENT August 28, 2024 1 1:30am Reason for Visit Admit Date Segmental and somatic dysfunction of cer vical region April 30, 2024 1:27pm Segmental and somatic dysfunction of lum bar region April 30, 2024 1:27pm Segmental and somatic dysfunction of pel [place] region April 30, 2024 1:27pm Segmental and somatic dysfunction of tho racic region April 30, 2024 1:27pm 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 April 30, 2024 1:27pm Segmental and somatic dysfunction of cer vical region June 04, 2024 11:00am Segmental and somatic dysfunction of lum bar region June 04, 2024 11:00am Segmental and somatic dysfunction of pel [place] region June 04, 2024 11:00am Segmental and somatic dysfunction of tho racic region June 04, 2024 11:00am Back pain June 04, 2024 11: 00am 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 June 04, 2024 11:00am Segmental and somatic dysfunction of cer vical region July 02, 2024 10:56am Segmental and somatic dysfunction of lum bar region July 02, 2024 10:56am Segmental and somatic dysfunction of pel [place] region July 02, 2024 10:56am Segmental and somatic dysfunction of tho racic region July 02, 2024 10:56am Back pain July 02, 2024 10: 56am 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 July 02, 2024 10:56am Segmental and somatic dysfunction of cer vical region July 31, 2024 11:27am Segmental and somatic dysfunction of lum bar region July 31, 2024 11:27am Segmental and somatic dysfunction of pel [place] region July 31, 2024 11:27am Segmental and somatic dysfunction of tho racic region July 31, 2024 11:27am Back pain July 31, 2024 11:27 am 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 July 31, 2024 11:27am Segmental and somatic dysfunction of lum bar region August 09, 2024 9:30am Segmental and somatic dysfunction of pel [place] region August 09, 2024 9:30am Segmental and somatic dysfunction of tho racic region August 09, 2024 9:30am Back pain August 09, 2024 9:30a m DDD (degenerative disc disease) August 9:30am 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 August 09, 2024 9:30am Segmental and somatic dysfunction of cer vical region August 23, 2024 2:27pm Segmental and somatic dysfunction of lum bar region August 23, 2024 2:27pm Segmental and somatic dysfunction of pel [place]at[place] region August 23, 2024 2:27pm Segmental and somatic dysfunction of tho racic region August 23, 2024 2:27pm Back pain August 23, 2024 2:27 pm DDD (degenerative disc disease) August 2:27pm Segmental and somatic dysfunction of cer vical region August 28, 2024 11:30am Segmental and somatic dysfunction of lum bar region August 28, 2024 11:30am Segmental and somatic dysfunction of pel [place]at[place] region August 28, 2024 11:30am Segmental and somatic dysfunction of tho racic region August 28, 2024 11:30am Back pain August 28, 2024 11:3 0am 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 August 28, 2024 11:30am Chief Complaint Admit Date PREDIABETES May 29, 2024 12: 07pm BACK PAIN June 04, 2024 11: 00am XRAY June 06, 2024 3:20 pm HIP PAIN RX HERE June 26, 2024 12: 52pm BACK PAIN July 02, 2024 10: 56am BACK PAIN July 31, 2024 11:27 am DIZZINESS AND GIDDINESS August 02, 2024 1 2:43pm DIZZINESS AND GIDDINESS August 02, 2024 1 2:53pm BACK PAIN August 09, 2024 9:30a m ACUPUNCTURE/ADJUSTMENT August 23, 2024 2 :27pm ACUPUNCTURE/ADJUSTMENT August 28, 2024 1 1:30am ANEURYSM OF RENAL ARTERY September 06, 2024 7:53am ACUPUNCTURE/ADJUSTMENT September 06, 2024 11 :01am Reason for Visit Admit Date Segmental and somatic dysfunction of cer vical region June 04, 2024 11:00am Segmental and somatic dysfunction of lum bar region June 04, 2024 11:00am Segmental and somatic dysfunction of pel [place] region June 04, 2024 11:00am Segmental and somatic dysfunction of tho racic region June 04, 2024 11:00am Back pain June 04, 2024 11: 00am 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 June 04, 2024 11:00am Segmental and somatic dysfunction of cer vical region July 02, 2024 10:56am Segmental and somatic dysfunction of lum bar region July 02, 2024 10:56am Segmental and somatic dysfunction of pel [place] region July 02, 2024 10:56am Segmental and somatic dysfunction of tho racic region July 02, 2024 10:56am Back pain July 02, 2024 10: 56am 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 July 02, 2024 10:56am Segmental and somatic dysfunction of cer vical region July 31, 2024 11:27am Segmental and somatic dysfunction of lum bar region July 31, 2024 11:27am Segmental and somatic dysfunction of pel [place] region July 31, 2024 11:27am Segmental and somatic dysfunction of tho racic region July 31, 2024 11:27am Back pain July 31, 2024 11:27 am 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 July 31, 2024 11:27am Segmental and somatic dysfunction of lum bar region August 09, 2024 9:30am Segmental and somatic dysfunction of pel [place] region August 09, 2024 9:30am Segmental and somatic dysfunction of tho racic region August 09, 2024 9:30am Back pain August 09, 2024 9:30a m DDD (degenerative disc disease) August 9:30am 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 August 09, 2024 9:30am Segmental and somatic dysfunction of cer vical region August 23, 2024 2:27pm Segmental and somatic dysfunction of lum bar region August 23, 2024 2:27pm Segmental and somatic dysfunction of pel [place] region August 23, 2024 2:27pm Segmental and somatic dysfunction of tho racic region August 23, 2024 2:27pm Back pain August 23, 2024 2:27 pm DDD (degenerative disc disease) August 2:27pm Segmental and somatic dysfunction of cer vical region August 28, 2024 11:30am Segmental and somatic dysfunction of lum bar region August 28, 2024 11:30am Segmental and somatic dysfunction of pel [place]at[place] region August 28, 2024 11:30am Segmental and somatic dysfunction of tho racic region August 28, 2024 11:30am Back pain August 28, 2024 11:3 0am 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 August 28, 2024 11:30am Segmental and somatic dysfunction of cer vical region September 06, 2024 11:01am Segmental and somatic dysfunction of lum bar region September 06, 2024 11:01am Segmental and somatic dysfunction of pel [place] region September 06, 2024 11:01am Segmental and somatic dysfunction of tho racic region September 06, 2024 11:01am DDD (degenerative disc disease) September 11:01am 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 September 06, 2024 11:01am Reason for Visit Admit Date Segmental and somatic dysfunction of cer vical region June 04, 2024 11:00am Segmental and somatic dysfunction of lum bar region June 04, 2024 11:00am Segmental and somatic dysfunction of pel [place] region June 04, 2024 11:00am Segmental and somatic dysfunction of tho racic region June 04, 2024 11:00am Back pain June 04, 2024 11: 00am 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 June 04, 2024 11:00am Segmental and somatic dysfunction of cer vical region July 02, 2024 10:56am Segmental and somatic dysfunction of lum bar region July 02, 2024 10:56am Segmental and somatic dysfunction of pel [place] region July 02, 2024 10:56am Segmental and somatic dysfunction of tho racic region July 02, 2024 10:56am Back pain July 02, 2024 10: 56am 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 July 02, 2024 10:56am Segmental and somatic dysfunction of cer vical region July 31, 2024 11:27am Segmental and somatic dysfunction of lum bar region July 31, 2024 11:27am Segmental and somatic dysfunction of pel [place] region July 31, 2024 11:27am Segmental and somatic dysfunction of tho racic region July 31, 2024 11:27am Back pain July 31, 2024 11:27 am 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 July 31, 2024 11:27am Segmental and somatic dysfunction of lum bar region August 09, 2024 9:30am Segmental and somatic dysfunction of pel [place] region August 09, 2024 9:30am Segmental and somatic dysfunction of tho racic region August 09, 2024 9:30am Back pain August 09, 2024 9:30a m DDD (degenerative disc disease) August 9:30am 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 August 09, 2024 9:30am Segmental and somatic dysfunction of cer vical region August 23, 2024 2:27pm Segmental and somatic dysfunction of lum bar region August 23, 2024 2:27pm Segmental and somatic dysfunction of pel [place] region August 23, 2024 2:27pm Segmental and somatic dysfunction of tho racic region August 23, 2024 2:27pm Back pain August 23, 2024 2:27 pm DDD (degenerative disc disease) August 2:27pm Segmental and somatic dysfunction of cer vical region August 28, 2024 11:30am Segmental and somatic dysfunction of lum bar region August 28, 2024 11:30am Segmental and somatic dysfunction of pel [place] region August 28, 2024 11:30am Segmental and somatic dysfunction of tho racic region August 28, 2024 11:30am Back pain August 28, 2024 11:3 0am 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 August 28, 2024 11:30am Segmental and somatic dysfunction of cer vical region September 06, 2024 11:01am Segmental and somatic dysfunction of lum bar region September 06, 2024 11:01am Segmental and somatic dysfunction of pel [place] region September 06, 2024 11:01am Segmental and somatic dysfunction of tho racic region September 06, 2024 11:01am Back pain September 06, 2024 11:01 am DDD (degenerative disc disease) September 11:01am 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 September 06, 2024 11:01am Chief Complaint Admit Date PREDIABETES May 29, 2024 12: 07pm BACK PAIN June 04, 2024 11: 00am XRAY June 06, 2024 3:20 pm HIP PAIN RX HERE June 26, 2024 12: 52pm BACK PAIN July 02, 2024 10: 56am BACK PAIN July 31, 2024 11:27 am DIZZINESS AND GIDDINESS August 02, 2024 1 2:43pm DIZZINESS AND GIDDINESS August 02, 2024 1 2:53pm BACK PAIN August 09, 2024 9:30a m ACUPUNCTURE/ADJUSTMENT August 23, 2024 2 :27pm ACUPUNCTURE/ADJUSTMENT August 28, 2024 1 1:30am ANEURYSM OF RENAL ARTERY September 06, 2024 7:53am ACUPUNCTURE/ADJUSTMENT September 06, 2024 11 :01am ACUPUNCTURE/ADJUSTMENT September 24, 2024 9 :26am Reason for Visit Admit Date Segmental and somatic dysfunction of cer vical region June 04, 2024 11:00am Segmental and somatic dysfunction of lum bar region June 04, 2024 11:00am Segmental and somatic dysfunction of pel [place] region June 04, 2024 11:00am Segmental and somatic dysfunction of tho racic region June 04, 2024 11:00am Back pain June 04, 2024 11: 00am 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 June 04, 2024 11:00am Segmental and somatic dysfunction of cer vical region July 02, 2024 10:56am Segmental and somatic dysfunction of lum bar region July 02, 2024 10:56am Segmental and somatic dysfunction of pel [place] region July 02, 2024 10:56am Segmental and somatic dysfunction of tho racic region July 02, 2024 10:56am Back pain July 02, 2024 10: 56am 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 July 02, 2024 10:56am Segmental and somatic dysfunction of cer vical region July 31, 2024 11:27am Segmental and somatic dysfunction of lum bar region July 31, 2024 11:27am Segmental and somatic dysfunction of pel [place] region July 31, 2024 11:27am Segmental and somatic dysfunction of tho racic region July 31, 2024 11:27am Back pain July 31, 2024 11:27 am 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 July 31, 2024 11:27am Segmental and somatic dysfunction of lum bar region August 09, 2024 9:30am Segmental and somatic dysfunction of pel [place] region August 09, 2024 9:30am Segmental and somatic dysfunction of tho racic region August 09, 2024 9:30am Back pain August 09, 2024 9:30a m DDD (degenerative disc disease) August 9:30am 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 August 09, 2024 9:30am Segmental and somatic dysfunction of cer vical region August 23, 2024 2:27pm Segmental and somatic dysfunction of lum bar region August 23, 2024 2:27pm Segmental and somatic dysfunction of pel [place] region August 23, 2024 2:27pm Segmental and somatic dysfunction of tho racic region August 23, 2024 2:27pm Back pain August 23, 2024 2:27 pm DDD (degenerative disc disease) August 2:27pm Segmental and somatic dysfunction of cer vical region August 28, 2024 11:30am Segmental and somatic dysfunction of lum bar region August 28, 2024 11:30am Segmental and somatic dysfunction of pel [place] region August 28, 2024 11:30am Segmental and somatic dysfunction of tho racic region August 28, 2024 11:30am Back pain August 28, 2024 11:3 0am 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 August 28, 2024 11:30am Segmental and somatic dysfunction of cer vical region September 06, 2024 11:01am Segmental and somatic dysfunction of lum bar region September 06, 2024 11:01am Segmental and somatic dysfunction of pel [place] region September 06, 2024 11:01am Segmental and somatic dysfunction of tho racic region September 06, 2024 11:01am Back pain September 06, 2024 11:01 am DDD (degenerative disc disease) September 11:01am 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 September 06, 2024 11:01am Segmental and somatic dysfunction of cer vical region September 24, 2024 9:26am Segmental and somatic dysfunction of lum bar region September 24, 2024 9:26am Segmental and somatic dysfunction of pel [place] region September 24, 2024 9:26am Segmental and somatic dysfunction of tho racic region September 24, 2024 9:26am 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 September 24, 2024 9:26am Chief Complaint Admit Date HIP PAIN RX HERE June 26, 2024 12: 52pm BACK PAIN July 02, 2024 10: 56am BACK PAIN July 31, 2024 11:27 am DIZZINESS AND GIDDINESS August 02, 2024 1 2:43pm DIZZINESS AND GIDDINESS August 02, 2024 1 2:53pm BACK PAIN August 09, 2024 9:30a m ACUPUNCTURE/ADJUSTMENT August 23, 2024 2 :27pm ACUPUNCTURE/ADJUSTMENT August 28, 2024 1 1:30am ANEURYSM OF RENAL ARTERY September 06, 2024 7:53am ACUPUNCTURE/ADJUSTMENT September 06, 2024 11 :01am BACK PAIN September 24, 2024 9:26 am ACUPUNCTURE/ADJUSTMENT October 08, 2024 12:57pm Reason for Visit Admit Date Segmental and somatic dysfunction of cer vical region July 02, 2024 10:56am Segmental and somatic dysfunction of lum bar region July 02, 2024 10:56am Segmental and somatic dysfunction of pel [place] region July 02, 2024 10:56am Segmental and somatic dysfunction of tho racic region July 02, 2024 10:56am Back pain July 02, 2024 10: 56am 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 July 02, 2024 10:56am Segmental and somatic dysfunction of cer vical region July 31, 2024 11:27am Segmental and somatic dysfunction of lum bar region July 31, 2024 11:27am Segmental and somatic dysfunction of pel [place] region July 31, 2024 11:27am Segmental and somatic dysfunction of tho racic region July 31, 2024 11:27am Back pain July 31, 2024 11:27 am 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 July 31, 2024 11:27am Segmental and somatic dysfunction of lum bar region August 09, 2024 9:30am Segmental and somatic dysfunction of pel [place] region August 09, 2024 9:30am Segmental and somatic dysfunction of tho racic region August 09, 2024 9:30am Back pain August 09, 2024 9:30a m DDD (degenerative disc disease) August 9:30am 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 August 09, 2024 9:30am Segmental and somatic dysfunction of cer vical region August 23, 2024 2:27pm Segmental and somatic dysfunction of lum bar region August 23, 2024 2:27pm Segmental and somatic dysfunction of pel aissatou region August 23, 2024 2:27pm Segmental and somatic dysfunction of tho racic region August 23, 2024 2:27pm Back pain August 23, 2024 2:27 pm DDD (degenerative disc disease) August 2:27pm Segmental and somatic dysfunction of cer vical region August 28, 2024 11:30am Segmental and somatic dysfunction of lum bar region August 28, 2024 11:30am Segmental and somatic dysfunction of pel aissatou region August 28, 2024 11:30am Segmental and somatic dysfunction of tho racic region August 28, 2024 11:30am Back pain August 28, 2024 11:3 0am 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 August 28, 2024 11:30am Segmental and somatic dysfunction of cer vical region September 06, 2024 11:01am Segmental and somatic dysfunction of lum bar region September 06, 2024 11:01am Segmental and somatic dysfunction of pel aissatou region September 06, 2024 11:01am Segmental and somatic dysfunction of tho racic region September 06, 2024 11:01am Back pain September 06, 2024 11:01 am DDD (degenerative disc disease) September 11:01am 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 September 06, 2024 11:01am Segmental and somatic dysfunction of cer vical region September 24, 2024 9:26am Segmental and somatic dysfunction of lum bar region September 24, 2024 9:26am Segmental and somatic dysfunction of pel aissatou region September 24, 2024 9:26am Segmental and somatic dysfunction of tho racic region September 24, 2024 9:26am 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 September 24, 2024 9:26am Segmental and somatic dysfunction of cer vical region October 08, 2024 12:57pm Segmental and somatic dysfunction of lum bar region October 08, 2024 12:57pm Segmental and somatic dysfunction of pel aissatou region October 08, 2024 12:57pm Segmental and somatic dysfunction of tho racic region October 08, 2024 12:57pm DDD (degenerative disc disease) October 082024 12:57pm 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 October 08, 2024 12:57pm Chief Complaint Admit Date HIP PAIN RX HERE June 26, 2024 12: 52pm BACK PAIN July 02, 2024 10: 56am BACK PAIN July 31, 2024 11:27 am DIZZINESS AND GIDDINESS August 02, 2024 1 2:43pm DIZZINESS AND GIDDINESS August 02, 2024 1 2:53pm BACK PAIN August 09, 2024 9:30a m ACUPUNCTURE/ADJUSTMENT August 23, 2024 2 :27pm ACUPUNCTURE/ADJUSTMENT August 28, 2024 1 1:30am ANEURYSM OF RENAL ARTERY September 06, 2024 7:53am ACUPUNCTURE/ADJUSTMENT September 06, 2024 11 :01am BACK PAIN September 24, 2024 9:26 am ACUPUNCTURE/ADJUSTMENT October 08, 2024 12:57pm estring f/u October 17, 2024 12 :58pm Reason for Visit Admit Date Segmental and somatic dysfunction of cer vical region July 02, 2024 10:56am Segmental and somatic dysfunction of lum bar region July 02, 2024 10:56am Segmental and somatic dysfunction of pel aissatou region July 02, 2024 10:56am Segmental and somatic dysfunction of tho racic region July 02, 2024 10:56am Back pain July 02, 2024 10: 56am 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 July 02, 2024 10:56am Segmental and somatic dysfunction of cer vical region July 31, 2024 11:27am Segmental and somatic dysfunction of lum bar region July 31, 2024 11:27am Segmental and somatic dysfunction of pel aissatou region July 31, 2024 11:27am Segmental and somatic dysfunction of tho racic region July 31, 2024 11:27am Back pain July 31, 2024 11:27 am 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 July 31, 2024 11:27am Segmental and somatic dysfunction of lum bar region August 09, 2024 9:30am Segmental and somatic dysfunction of pel aissatou region August 09, 2024 9:30am Segmental and somatic dysfunction of tho racic region August 09, 2024 9:30am Back pain August 09, 2024 9:30a m DDD (degenerative disc disease) August 9:30am 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 August 09, 2024 9:30am Segmental and somatic dysfunction of cer vical region August 23, 2024 2:27pm Segmental and somatic dysfunction of lum bar region August 23, 2024 2:27pm Segmental and somatic dysfunction of pel aissatou region August 23, 2024 2:27pm Segmental and somatic dysfunction of tho racic region August 23, 2024 2:27pm Back pain August 23, 2024 2:27 pm DDD (degenerative disc disease) August 2:27pm Segmental and somatic dysfunction of cer vical region August 28, 2024 11:30am Segmental and somatic dysfunction of lum bar region August 28, 2024 11:30am Segmental and somatic dysfunction of pel aissatou region August 28, 2024 11:30am Segmental and somatic dysfunction of tho racic region August 28, 2024 11:30am Back pain August 28, 2024 11:3 0am 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 August 28, 2024 11:30am Segmental and somatic dysfunction of cer vical region September 06, 2024 11:01am Segmental and somatic dysfunction of lum bar region September 06, 2024 11:01am Segmental and somatic dysfunction of pel aissat[place] region September 06, 2024 11:01am Segmental and somatic dysfunction of tho racic region September 06, 2024 11:01am Back pain September 06, 2024 11:01 am DDD (degenerative disc disease) September 11:01am 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 September 06, 2024 11:01am Segmental and somatic dysfunction of cer vical region September 24, 2024 9:26am Segmental and somatic dysfunction of lum bar region September 24, 2024 9:26am Segmental and somatic dysfunction of pel aissatou region September 24, 2024 9:26am Segmental and somatic dysfunction of tho racic region September 24, 2024 9:26am 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 September 24, 2024 9:26am 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 October 08, 2024 12:57pm Segmental and somatic dysfunction of cer vical region October 08, 2024 12:57pm Segmental and somatic dysfunction of lum bar region October 08, 2024 12:57pm Segmental and somatic dysfunction of pel a[place]at[place] region October 08, 2024 12:57pm Segmental and somatic dysfunction of tho racic region October 08, 2024 12:57pm 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 October 08, 2024 12:57pm Chief Complaint Admit Date BACK PAIN July 02, 2024 10: 56am BACK PAIN July 31, 2024 11:27 am DIZZINESS AND GIDDINESS August 02, 2024 1 2:43pm DIZZINESS AND GIDDINESS August 02, 2024 1 2:53pm BACK PAIN August 09, 2024 9:30a m ACUPUNCTURE/ADJUSTMENT August 23, 2024 2 :27pm ACUPUNCTURE/ADJUSTMENT August 28, 2024 1 1:30am ANEURYSM OF RENAL ARTERY September 06, 2024 7:53am ACUPUNCTURE/ADJUSTMENT September 06, 2024 11 :01am BACK PAIN September 24, 2024 9:26 am ACUPUNCTURE/ADJUSTMENT October 08, 2024 12:57pm estring f/u October 17, 2024 12 :58pm BALANCE ISSUES. BPA October 24, 2024 11 :00am BACK PAIN October 30, 2024 12 :58pm Reason for Visit Admit Date Segmental and somatic dysfunction of cer vical region July 02, 2024 10:56am Segmental and somatic dysfunction of lum bar region July 02, 2024 10:56am Segmental and somatic dysfunction of pel a[place]at[place] region July 02, 2024 10:56am Segmental and somatic dysfunction of tho racic region July 02, 2024 10:56am Back pain July 02, 2024 10: 56am 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 July 02, 2024 10:56am Segmental and somatic dysfunction of cer vical region July 31, 2024 11:27am Segmental and somatic dysfunction of lum bar region July 31, 2024 11:27am Segmental and somatic dysfunction of pel aissatou region July 31, 2024 11:27am Segmental and somatic dysfunction of tho racic region July 31, 2024 11:27am Back pain July 31, 2024 11:27 am 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 July 31, 2024 11:27am Segmental and somatic dysfunction of lum bar region August 09, 2024 9:30am Segmental and somatic dysfunction of pel a[place]at[place] region August 09, 2024 9:30am Segmental and somatic dysfunction of tho racic region August 09, 2024 9:30am Back pain August 09, 2024 9:30a m DDD (degenerative disc disease) August 9:30am 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 August 09, 2024 9:30am Segmental and somatic dysfunction of cer vical region August 23, 2024 2:27pm Segmental and somatic dysfunction of lum bar region August 23, 2024 2:27pm Segmental and somatic dysfunction of pel aissatou region August 23, 2024 2:27pm Segmental and somatic dysfunction of tho racic region August 23, 2024 2:27pm Back pain August 23, 2024 2:27 pm DDD (degenerative disc disease) August 2:27pm Segmental and somatic dysfunction of cer vical region August 28, 2024 11:30am Segmental and somatic dysfunction of lum bar region August 28, 2024 11:30am Segmental and somatic dysfunction of pel aissatou region August 28, 2024 11:30am Segmental and somatic dysfunction of tho racic region August 28, 2024 11:30am Back pain August 28, 2024 11:3 0am 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 August 28, 2024 11:30am Segmental and somatic dysfunction of cer vical region September 06, 2024 11:01am Segmental and somatic dysfunction of lum bar region September 06, 2024 11:01am Segmental and somatic dysfunction of pel a[place]atou region September 06, 2024 11:01am Segmental and somatic dysfunction of tho racic region September 06, 2024 11:01am Back pain September 06, 2024 11:01 am DDD (degenerative disc disease) September 11:01am 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 September 06, 2024 11:01am Segmental and somatic dysfunction of cer vical region September 24, 2024 9:26am Segmental and somatic dysfunction of lum bar region September 24, 2024 9:26am Segmental and somatic dysfunction of pel aissat[place] region September 24, 2024 9:26am Segmental and somatic dysfunction of tho racic region September 24, 2024 9:26am 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 September 24, 2024 9:26am 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 October 08, 2024 12:57pm Segmental and somatic dysfunction of cer vical region October 08, 2024 12:57pm Segmental and somatic dysfunction of lum bar region October 08, 2024 12:57pm Segmental and somatic dysfunction of pel a[place]atou region October 08, 2024 12:57pm Segmental and somatic dysfunction of tho racic region October 08, 2024 12:57pm 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 October 08, 2024 12:57pm Urinary tract infection October 17 12:58pm Vaginal atrophy October 17, 2024 12 :58pm Segmental and somatic dysfunction of cer vical region October 30, 2024 12:58pm Segmental and somatic dysfunction of lum bar region October 30, 2024 12:58pm Segmental and somatic dysfunction of pel aissatou region October 30, 2024 12:58pm Segmental and somatic dysfunction of tho racic region October 30, 2024 12:58pm 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 October 30, 2024 12:58pm Chief Complaint Admit Date BACK PAIN July 31, 2024 11:27 am DIZZINESS AND GIDDINESS August 02, 2024 1 2:43pm DIZZINESS AND GIDDINESS August 02, 2024 1 2:53pm BACK PAIN August 09, 2024 9:30a m ACUPUNCTURE/ADJUSTMENT August 23, 2024 2 :27pm ACUPUNCTURE/ADJUSTMENT August 28, 2024 1 1:30am ANEURYSM OF RENAL ARTERY September 06, 2024 7:53am ACUPUNCTURE/ADJUSTMENT September 06, 2024 11 :01am BACK PAIN September 24, 2024 9:26 am ACUPUNCTURE/ADJUSTMENT October 08, 2024 12:57pm estring f/u October 17, 2024 12 :58pm BACK PAIN October 30, 2024 12 :58pm SCREENING November 06, 2024 1:55pm BALANCE ISSUES. BPA November 19, 2024 2:00pm Reason for Visit Admit Date Segmental and somatic dysfunction of cer vical region July 31, 2024 11:27am Segmental and somatic dysfunction of lum bar region July 31, 2024 11:27am Segmental and somatic dysfunction of pel aissatou region July 31, 2024 11:27am Segmental and somatic dysfunction of tho racic region July 31, 2024 11:27am Back pain July 31, 2024 11:27 am 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 July 31, 2024 11:27am Segmental and somatic dysfunction of lum bar region August 09, 2024 9:30am Segmental and somatic dysfunction of pel a[place]at[place] region August 09, 2024 9:30am Segmental and somatic dysfunction of tho racic region August 09, 2024 9:30am Back pain August 09, 2024 9:30a m DDD (degenerative disc disease) August 9:30am 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 August 09, 2024 9:30am Segmental and somatic dysfunction of cer vical region August 23, 2024 2:27pm Segmental and somatic dysfunction of lum bar region August 23, 2024 2:27pm Segmental and somatic dysfunction of pel aissatou region August 23, 2024 2:27pm Segmental and somatic dysfunction of tho racic region August 23, 2024 2:27pm Back pain August 23, 2024 2:27 pm DDD (degenerative disc disease) August 2:27pm Segmental and somatic dysfunction of cer vical region August 28, 2024 11:30am Segmental and somatic dysfunction of lum bar region August 28, 2024 11:30am Segmental and somatic dysfunction of pel aissatou region August 28, 2024 11:30am Segmental and somatic dysfunction of tho racic region August 28, 2024 11:30am Back pain August 28, 2024 11:3 0am 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 August 28, 2024 11:30am Segmental and somatic dysfunction of cer vical region September 06, 2024 11:01am Segmental and somatic dysfunction of lum bar region September 06, 2024 11:01am Segmental and somatic dysfunction of pel aissatou region September 06, 2024 11:01am Segmental and somatic dysfunction of tho racic region September 06, 2024 11:01am Back pain September 06, 2024 11:01 am DDD (degenerative disc disease) September 11:01am 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 September 06, 2024 11:01am Segmental and somatic dysfunction of cer vical region September 24, 2024 9:26am Segmental and somatic dysfunction of lum bar region September 24, 2024 9:26am Segmental and somatic dysfunction of pel aissat[place] region September 24, 2024 9:26am Segmental and somatic dysfunction of tho racic region September 24, 2024 9:26am 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 September 24, 2024 9:26am 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 October 08, 2024 12:57pm Segmental and somatic dysfunction of cer vical region October 08, 2024 12:57pm Segmental and somatic dysfunction of lum bar region October 08, 2024 12:57pm Segmental and somatic dysfunction of pel a[place]atou region October 08, 2024 12:57pm Segmental and somatic dysfunction of tho racic region October 08, 2024 12:57pm 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 October 08, 2024 12:57pm Urinary tract infection October 17 12:58pm Vaginal atrophy October 17, 2024 12 :58pm Segmental and somatic dysfunction of cer vical region October 30, 2024 12:58pm Segmental and somatic dysfunction of lum bar region October 30, 2024 12:58pm Segmental and somatic dysfunction of pel aissatou region October 30, 2024 12:58pm Segmental and somatic dysfunction of tho racic region October 30, 2024 12:58pm 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 August 09, 2024 9:30am Segmental and somatic dysfunction of cer vical region August 23, 2024 2:27pm Segmental and somatic dysfunction of lum bar region August 23, 2024 2:27pm Segmental and somatic dysfunction of pel aissatou region August 23, 2024 2:27pm Segmental and somatic dysfunction of tho racic region August 23, 2024 2:27pm Back pain August 23, 2024 2:27 pm DDD (degenerative disc disease) August 2:27pm Segmental and somatic dysfunction of cer vical region August 28, 2024 11:30am Segmental and somatic dysfunction of lum bar region August 28, 2024 11:30am Segmental and somatic dysfunction of pel aissatou region August 28, 2024 11:30am Segmental and somatic dysfunction of tho racic region August 28, 2024 11:30am Back pain August 28, 2024 11:3 0am 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 August 28, 2024 11:30am Segmental and somatic dysfunction of cer vical region September 06, 2024 11:01am Segmental and somatic dysfunction of lum bar region September 06, 2024 11:01am Segmental and somatic dysfunction of pel aissatou region September 06, 2024 11:01am Segmental and somatic dysfunction of tho racic region September 06, 2024 11:01am Back pain September 06, 2024 11:01 am DDD (degenerative disc disease) September 11:01am 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 September 06, 2024 11:01am Segmental and somatic dysfunction of cer vical region September 24, 2024 9:26am Segmental and somatic dysfunction of lum bar region September 24, 2024 9:26am Segmental and somatic dysfunction of pel a[place]at[place] region September 24, 2024 9:26am Segmental and somatic dysfunction of tho racic region September 24, 2024 9:26am 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 September 24, 2024 9:26am 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 October 08, 2024 12:57pm Segmental and somatic dysfunction of cer vical region October 08, 2024 12:57pm Segmental and somatic dysfunction of lum bar region October 08, 2024 12:57pm Segmental and somatic dysfunction of pel aissatou region October 08, 2024 12:57pm Segmental and somatic dysfunction of tho racic region October 08, 2024 12:57pm 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 October 08, 2024 12:57pm Urinary tract infection October 17 12:58pm Vaginal atrophy October 17, 2024 12 :58pm Segmental and somatic dysfunction of cer vical region October 30, 2024 12:58pm Segmental and somatic dysfunction of lum bar region October 30, 2024 12:58pm Segmental and somatic dysfunction of pel aissatou region October 30, 2024 12:58pm Segmental and somatic dysfunction of tho racic region October 30, 2024 12:58pm 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 October 30, 2024 12:58pm Segmental and somatic dysfunction of lum bar region November 26, 2024 12:58pm Segmental and somatic dysfunction of pel aissatou region November 26, 2024 12:58pm Segmental and somatic dysfunction of tho racic region November 26, 2024 12:58pm Back pain November 26, 2024 12:58pm 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 November 26, 2024 12:58pm Chief Complaint Admit Date BACK PAIN September 24, 2024 9:26 am ACUPUNCTURE/ADJUSTMENT October 08, 2024 12:57pm estring f/u October 17, 2024 12 :58pm BACK PAIN October 30, 2024 12 :58pm SCREENING November 06, 2024 1:55pm BALANCE ISSUES. 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 October 08, 2024 12:57pm Segmental and somatic dysfunction of cer vical region October 08, 2024 12:57pm Segmental and somatic dysfunction of lum bar region October 08, 2024 12:57pm Segmental and somatic dysfunction of pel aissatou region October 08, 2024 12:57pm Segmental and somatic dysfunction of tho racic region October 08, 2024 12:57pm 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 October 08, 2024 12:57pm Urinary tract infection October 17 12:58pm Vaginal atrophy October 17, 2024 12 :58pm Segmental and somatic dysfunction of cer vical region October 30, 2024 12:58pm Segmental and somatic dysfunction of lum bar region October 30, 2024 12:58pm Segmental and somatic dysfunction of pel aissatou region October 30, 2024 12:58pm Segmental and somatic dysfunction of tho racic region October 30, 2024 12:58pm 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 October 30, 2024 12:58pm Segmental and somatic dysfunction of lum bar region November 26, 2024 12:58pm Segmental and somatic dysfunction of pel aissatou region November 26, 2024 12:58pm Segmental and somatic dysfunction of tho racic region November 26, 2024 12:58pm Back pain November 26, 2024 12:58pm 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 November 26, 2024 12:58pm Segmental and somatic dysfunction of cer vical region December 24, 2024 11:29am Segmental and somatic dysfunction of lum bar region December 24, 2024 11:29am Segmental and somatic dysfunction of pel aissatou region December 24, 2024 11:29am Segmental and somatic dysfunction of tho racic region December 24, 2024 11:29am 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 Edwardo Petit MD Family Provider Active Dr. Edwardo Petit MD Primary Care Provider Active Team Status: Inactive Member Role Status Dates Dr. Edwardo Petit MD Primary Care Provider, Referring P rovider Active Dr. Maite Arceo DC Attending Provider Active Team Status: Inactive Member Role Status Dates Dr. Edwardo Petit MD Referring Provider Active Dr. Maite Arceo DC Attending Provider Active Team Status: Inactive Member Role Status Dates Dr. Edwardo Petit MD Primary Care Provide r, Attending Provider, Referring Provider Active Team Status: Inactive Member Role Status Dates Dr. Edwardo Petit MD Primary Care Provider Active Dr. Narcisa Perez MD Attending Provider, Referring P rovider Active Team Status: Inactive Member Role Status Dates Dr. Narcisa Perez MD Attending Provider, Referring P rovider Active Dr. Edwardo Petit MD Primary Care Provider Active Team Status: Inactive Member Role Status Dates Jeanine Hodges MD Attending Provider Active Team Status: Inactive Member Role Status Dates Dr. Maite Arceo DC Attending Provider Active Dr. Edwardo Petit MD Primary Care Provider, Referring P rovider Active Team Status: Active Member Role Status Dates Dr. Edwardo Petit MD Primary Care Provide r, Attending Provider, Referring Provider Active Team Status: Inactive Member Role Status Dates Dr. Edwardo Petit MD Primary Care Provider Active Dr. Maiet Arceo DC Attending Provider, Referring Pro vider Active Team Status: Inactive Member Role Status Dates Jeanine MÁRQUEZ MD Attending Provider Active Team Status: Inactive Member Role Status Dates Dr. Edwardo Petit MD Primary Care Provider Active Dr. Rik Kang DPM Attending Provider, Referring Provider Active Team Status: Inactive Member Role Status Dates Dr. Edwardo Petit MD Primary Care Provider, Attending P jeff Active Team Status: Active Member Role Status Dates Dr. Edwardo Petit MD Primary Care Provider Active Dr. Bryn Juárez MD Attending Provider, Referring Provider Active Team Status: Inactive Member Role Status Dates Dr. Edwardo Petit MD Primary Care Provider Active Dr. Bryn Juárez MD Attending Provider, Referring Provider Active Team Status: Inactive Member Role Status Dates Dr. Edwardo Petit MD Primary Care Provider Active Serena Ojeda NP-C Attending Provider, Referring Pr ovider Active Team Status: Active Member Role Status Dates Dr. Edwardo Petit MD Family Provider Active Dr. Aicha Blackwood DO Primary Care Provider Active Team Status: Inactive Member Role Status Dates Dr. Edwardo Petit MD Referring Provider Active Dr. Maite Arceo DC Attending Provider Active Dr. Aicha Blackwood DO Primary Care Provider Active Team Status: Active Member Role Status Dates Dr. Aicha Blackwood DO Primary Care Provide r, Referring Provider, Other Provider Active Dr. Michelle Perez MD Attending Provider Active Team Status: Inactive Member Role Status Dates Dr. Aicha Blackwood DO Primary Care Provide r, Attending Provider, Referring Provider Active Team Status: Active Member Role Status Dates Dr. Aicha Blackwood DO Primary Care Provider Active Team Status: Inactive Member Role Status Dates Dr. Aicha Blackwood DO Primary Care Provider Active Start: January 17, 2024 End: January 17, 2024 Dr. Aicha Blackwood DO Referring Provider Active St art: January 17, 2024 End: January 17, 2024 Dr. Maite Arceo DC Attending Provider Active S tart: January 17, 2024 End: January 17, 2024 Team Status: Inactive Member Role Status Dates Dr. Aicha Blackwood DO Primary Care Provider Active Start: February 09, 2024 End: February 09, 2024 Dr. Aicha Blackwood DO Attending Provider Active St art: February 09, 2024 End: February 09, 2024 Dr. Aicha Blackwood DO Referring Provider Active St art: February 09, 2024 End: February 09, 2024 Team Status: Inactive Member Role Status Dates Dr. Aicha Blackwood DO Primary Care Provider Active Start: February 16, 2024 End: February 16, 2024 Dr. Aicha Blackwood DO Referring Provider Active St art: February 16, 2024 End: February 16, 2024 Dr. Maite Arceo DC Attending Provider Active S tart: February 16, 2024 End: February 16, 2024 Team Status: Inactive Member Role Status Dates Dr. Aicha Blackwood DO Primary Care Provider Active Start: March 15, 2024 End: March 15, 2024 Dr. Aicha Blackwood DO Referring Provider Active St art: March 15, 2024 End: March 15, 2024 JAMAL West Attending Provider Active Start: March 15, 2024 End: March 15, 2024 Team Status: Inactive Member Role Status Dates Dr. Aicha Blackwood DO Primary Care Provider Active Start: March 19, 2024 End: March 19, 2024 Dr. Aicha Blackwood DO Referring Provider Active St art: March 19, 2024 End: March 19, 2024 Dr. Maite Arceo DC Attending Provider Active S tart: March 19, 2024 End: March 19, 2024 Team Status: Inactive Member Role Status Dates Dr. Aicha Blackwood DO Primary Care Provider Active Start: April 30, 2024 End: April 30, 2024 Dr. Aicha Blackwood DO Referring Provider Active St art: April 30, 2024 End: April 30, 2024 Dr. Maite Arceo DC Attending Provider Active S tart: April 30, 2024 End: April 30, 2024 Team Status: Inactive Member Role Status Dates Dr. Aicha Blackwood DO Primary Care Provider Active Start: May 01, 2024 End: May 01, 2024 JAMAL West Attending Provider Active Start: May 01, 2024 End: May 01, 2024 JAMAL West Referring Provider Active Start: May 01, 2024 End: May 01, 2024 Team Status: Active Member Role Status Dates Dr. Aicha Blackwood DO Primary Care Provider Active Start: May 04, 2024 JAMAL West Attending Provider Active Start: May 04, 2024 JAMAL West Referring Provider Active Start: May 04, 2024 Team Status: Inactive Member Role Status Dates Dr. Aicha Blackwood DO Primary Care Provider Active Start: May 04, 2024 End: May 04, 2024 JAMAL West Attending Provider Active Start: May 04, 2024 End: May 04, 2024 JAMAL West Referring Provider Active Start: May 04, 2024 End: May 04, 2024 Team Status: Inactive Member Role Status Dates Dr. Aicha Blackwood DO Primary Care Provider Active Start: May 29, 2024 End: June 04, 2024 Dr. Aicha Blackwood DO Attending Provider Active St art: May 29, 2024 End: June 04, 2024 Dr. Aicha Blackwood DO Referring Provider Active St art: May 29, 2024 End: June 04, 2024 Team Status: Inactive Member Role Status Dates Dr. Aicha Blackwood DO Primary Care Provider Active Start: June 04, 2024 End: June 04, 2024 Dr. Aicha Blackwood DO Referring Provider Active St art: June 04, 2024 End: June 04, 2024 Dr. Maite Arceo DC Attending Provider Active S tart: June 04, 2024 End: June 04, 2024 Team Status: Inactive Member Role Status Dates Dr. Aicha Blackwood DO Primary Care Provider Active Start: June 06, 2024 End: June 06, 2024 Dr. Murphy Stafford MD Attending Provider Active S tart: June 06, 2024 End: June 06, 2024 Team Status: Inactive Member Role Status Dates Dr. Aicha Blackwood DO Primary Care Provider Active Start: June 26, 2024 End: June 26, 2024 Dr. Aicha Blackwood DO Attending Provider Active St art: June 26, 2024 End: June 26, 2024 Dr. Aicha Blackwood DO Referring Provider Active St art: June 26, 2024 End: June 26, 2024 Team Status: Inactive Member Role Status Dates Dr. Aicha Blackwood DO Primary Care Provider Active Start: July 02, 2024 End: July 02, 2024 Dr. Aicha Blackwood DO Referring Provider Active St art: July 02, 2024 End: July 02, 2024 Dr. Maite Arceo DC Attending Provider Active S tart: July 02, 2024 End: July 02, 2024 Team Status: Inactive Member Role Status Dates Dr. Aicha Blackwood DO Primary Care Provider Active Start: July 31, 2024 End: July 31, 2024 Dr. Aicha Blackwood DO Referring Provider Active St art: July 31, 2024 End: July 31, 2024 Dr. Maite Arceo DC Attending Provider Active S tart: July 31, 2024 End: July 31, 2024 Team Status: Inactive Member Role Status Dates Dr. Aicha Blackwood DO Primary Care Provider Active Start: August 02, 2024 End: August 02, 2024 Dr. Aicha Blackwood DO Attending Provider Active St art: August 02, 2024 End: August 02, 2024 Dr. Aicha Blackwood DO Referring Provider Active St art: August 02, 2024 End: August 02, 2024 Team Status: Inactive Member Role Status Dates Dr. Aicha Blackwood DO Primary Care Provider Active Start: August 09, 2024 End: August 09, 2024 Dr. Aicha Blackwood DO Referring Provider Active St art: August 09, 2024 End: August 09, 2024 Dr. Maite Arceo DC Attending Provider Active S tart: August 09, 2024 End: August 09, 2024 Team Status: Active Member Role Status Dates Dr. Carlos Field MD Attending Provider Active Start: August 02, 2024 Dr. Aicha Blackwood DO Referring Provider Active St art: August 02, 2024 Team Status: Inactive Member Role Status Dates Dr. Aicha Blackwood DO Primary Care Provider Active Start: August 23, 2024 End: August 23, 2024 Dr. Aicha Blackwood DO Referring Provider Active St art: August 23, 2024 End: August 23, 2024 Dr. Maite Arceo DC Attending Provider Active S tart: August 23, 2024 End: August 23, 2024 Team Status: Inactive Member Role Status Dates Dr. Aicha Blackwood DO Primary Care Provider Active Start: August 28, 2024 End: August 28, 2024 Dr. Aicha Blackwood DO Referring Provider Active St art: August 28, 2024 End: August 28, 2024 Dr. Maite Arceo DC Attending Provider Active S tart: August 28, 2024 End: August 28, 2024 Team Status: Active Member Role/Relationship Status Dates Dr. Aicha Blackwood DO Primary Care Provider Active Team Status: Inactive Member Role/Relationship Status Dates Dr. Aicha Blackwood DO Primary Care Provider Active Start: May 29, 2024 End: June 04, 2024 Dr. Aicha Blackwood DO Attending Provider Active St art: May 29, 2024 End: June 04, 2024 Dr. Aicha Blackwood DO Referring Provider Active St art: May 29, 2024 End: June 04, 2024 Team Status: Inactive Member Role/Relationship Status Dates Dr. Aicha Blackwood DO Primary Care Provider Active Start: June 04, 2024 End: June 04, 2024 Dr. Aicha Blackwood DO Referring Provider Active St art: June 04, 2024 End: June 04, 2024 Dr. Maite Arceo DC Attending Provider Active S tart: June 04, 2024 End: June 04, 2024 Team Status: Inactive Member Role/Relationship Status Dates Dr. Aicha Blackwood DO Primary Care Provider Active Start: June 06, 2024 End: June 06, 2024 Dr. Murphy Stafford MD Attending Provider Active S tart: June 06, 2024 End: June 06, 2024 Team Status: Inactive Member Role/Relationship Status Dates Dr. Aicha Blackwood DO Primary Care Provider Active Start: June 26, 2024 End: June 26, 2024 Dr. Aicha Blackwood DO Attending Provider Active St art: June 26, 2024 End: June 26, 2024 Dr. Aicha Blackwood DO Referring Provider Active St art: June 26, 2024 End: June 26, 2024 Team Status: Inactive Member Role/Relationship Status Dates Dr. Aicha Blackwood DO Primary Care Provider Active Start: July 02, 2024 End: July 02, 2024 Dr. Aicha Blackwood DO Referring Provider Active St art: July 02, 2024 End: July 02, 2024 Dr. Maite Arceo DC Attending Provider Active S tart: July 02, 2024 End: July 02, 2024 Team Status: Inactive Member Role/Relationship Status Dates Dr. Aicha Blackwood DO Primary Care Provider Active Start: July 31, 2024 End: July 31, 2024 Dr. Aicha Blackwood DO Referring Provider Active St art: July 31, 2024 End: July 31, 2024 Dr. Maite Arceo DC Attending Provider Active S tart: July 31, 2024 End: July 31, 2024 Team Status: Inactive Member Role/Relationship Status Dates Dr. Aicha Blackwood DO Primary Care Provider Active Start: August 02, 2024 End: August 02, 2024 Dr. Aicha Blackwood DO Attending Provider Active St art: August 02, 2024 End: August 02, 2024 Dr. Aicha Blackwood DO Referring Provider Active St art: August 02, 2024 End: August 02, 2024 Team Status: Active Member Role/Relationship Status Dates Dr. Carlos Field MD Attending Provider Active Start: August 02, 2024 Dr. Aicha Blackwood DO Referring Provider Active St art: August 02, 2024 Team Status: Inactive Member Role/Relationship Status Dates Dr. Aicha Blackwood DO Primary Care Provider Active Start: August 09, 2024 End: August 09, 2024 Dr. Aicha Blackwood DO Referring Provider Active St art: August 09, 2024 End: August 09, 2024 Dr. Maite Arceo DC Attending Provider Active S tart: August 09, 2024 End: August 09, 2024 Team Status: Inactive Member Role/Relationship Status Dates Dr. Aicha Blackwood DO Primary Care Provider Active Start: August 23, 2024 End: August 23, 2024 Dr. Aicha Blackwood DO Referring Provider Active St art: August 23, 2024 End: August 23, 2024 Dr. Maite Arceo DC Attending Provider Active S tart: August 23, 2024 End: August 23, 2024 Team Status: Inactive Member Role/Relationship Status Dates Dr. Aicha Blackwood DO Primary Care Provider Active Start: August 28, 2024 End: August 28, 2024 Dr. Aicha Blackwood DO Referring Provider Active St art: August 28, 2024 End: August 28, 2024 Dr. Maite Arceo DC Attending Provider Active S tart: August 28, 2024 End: August 28, 2024 Team Status: Active Member Role/Relationship Status Dates Dr. Aicha Blackwood DO Primary Care Provider Active Start: September 06, 2024 Dr. Aicha Blackwood DO Attending Provider Active St art: September 06, 2024 Dr. Aicha Blackwood DO Referring Provider Active St art: September 06, 2024 Team Status: Inactive Member Role/Relationship Status Dates Dr. Aicha Blackwood DO Primary Care Provider Active Start: September 06, 2024 End: September 06, 2024 Dr. Aicha Blackwood DO Referring Provider Active St art: September 06, 2024 End: September 06, 2024 Dr. Maite Arceo DC Attending Provider Active S tart: September 06, 2024 End: September 06, 2024 Team Status: Inactive Member Role/Relationship Status Dates Dr. Aicha Blackwood DO Primary Care Provider Active Start: September 06, 2024 End: September 06, 2024 Dr. Aicha Blackwood DO Attending Provider Active St art: September 06, 2024 End: September 06, 2024 Dr. Aicha Blackwood DO Referring Provider Active St art: September 06, 2024 End: September 06, 2024 Team Status: Active Member Role/Relationship Status Dates Dr. Aicha Blackwood DO Primary Care Provider Active Start: September 06, 2024 Dr. Edwardo Calderon MD Attending Provider Active S tart: September 06, 2024 Team Status: Inactive Member Role/Relationship Status Dates Dr. Aicha Blackwood DO Primary Care Provider Active Start: September 06, 2024 End: September 06, 2024 Dr. Aicha Blackwood DO Referring Provider Active St art: September 06, 2024 End: September 06, 2024 Dr. Maite Arceo DC Attending Provider Active S tart: September 06, 2024 End: September 06, 2024 Team Status: Active Member Role/Relationship Status Dates Dr. Aicha Blackwood DO Primary Care Provider Active Start: September 06, 2024 Dr. Aicha Blackwood DO Referring Provider Active St art: September 06, 2024 Dr. Edwardo Calderon MD Attending Provider Active S tart: September 06, 2024 Team Status: Inactive Member Role/Relationship Status Dates Dr. Aicha Blackwood DO Primary Care Provider Active Start: September 24, 2024 End: September 24, 2024 Dr. Aicha Blackwood DO Referring Provider Active St art: September 24, 2024 End: September 24, 2024 Dr. Maite Arceo DC Attending Provider Active S tart: September 24, 2024 End: September 24, 2024 Team Status: Inactive Member Role/Relationship Status Dates Dr. Aicha Blackwood DO Primary Care Provider Active Start: June 26, 2024 End: June 26, 2024 Dr. Aicha Blackwood DO Attending Provider Active St art: June 26, 2024 End: June 26, 2024 Dr. Aicha Blackwood DO Referring Provider Active St art: June 26, 2024 End: June 26, 2024 Team Status: Inactive Member Role/Relationship Status Dates Dr. Aicha Blackwood DO Primary Care Provider Active Start: July 02, 2024 End: July 02, 2024 Dr. Aicha Blackwood DO Referring Provider Active St art: July 02, 2024 End: July 02, 2024 Dr. Maite Arceo DC Attending Provider Active S tart: July 02, 2024 End: July 02, 2024 Team Status: Inactive Member Role/Relationship Status Dates Dr. Aicha Blackwood DO Primary Care Provider Active Start: July 31, 2024 End: July 31, 2024 Dr. Aicha Blackwood DO Referring Provider Active St art: July 31, 2024 End: July 31, 2024 Dr. Maite Arceo DC Attending Provider Active S tart: July 31, 2024 End: July 31, 2024 Team Status: Inactive Member Role/Relationship Status Dates Dr. iAcha Blackwood DO Primary Care Provider Active Start: August 02, 2024 End: August 02, 2024 Dr. Aicha Blackwood DO Attending Provider Active St art: August 02, 2024 End: August 02, 2024 Dr. Aicha Blackwood DO Referring Provider Active St art: August 02, 2024 End: August 02, 2024 Team Status: Active Member Role/Relationship Status Dates Dr. Carlos Field MD Attending Provider Active Start: August 02, 2024 Dr. Aicha Blackwood DO Referring Provider Active St art: August 02, 2024 Team Status: Inactive Member Role/Relationship Status Dates Dr. Aicha Blackwood DO Primary Care Provider Active Start: August 09, 2024 End: August 09, 2024 Dr. Aicha Blackwood DO Referring Provider Active St art: August 09, 2024 End: August 09, 2024 Dr. Maite Arceo DC Attending Provider Active S tart: August 09, 2024 End: August 09, 2024 Team Status: Inactive Member Role/Relationship Status Dates Dr. Aicha Blackwood DO Primary Care Provider Active Start: August 23, 2024 End: August 23, 2024 Dr. Aicha Blackwood DO Referring Provider Active St art: August 23, 2024 End: August 23, 2024 Dr. Maite Arceo DC Attending Provider Active S tart: August 23, 2024 End: August 23, 2024 Team Status: Inactive Member Role/Relationship Status Dates Dr. Aicha Blackwood DO Primary Care Provider Active Start: August 28, 2024 End: August 28, 2024 Dr. Aicha Blackwood DO Referring Provider Active St art: August 28, 2024 End: August 28, 2024 Dr. Maite Arceo DC Attending Provider Active S tart: August 28, 2024 End: August 28, 2024 Team Status: Inactive Member Role/Relationship Status Dates Dr. Aicha Blackwood DO Primary Care Provider Active Start: September 04, 2024 Dr. Narcisa Perez MD Attending Provider Active Start: September 04, 2024 Team Status: Inactive Member Role/Relationship Status Dates Dr. Aicha Blackwood DO Primary Care Provider Active Start: September 06, 2024 End: September 06, 2024 Dr. Aicha Blackwood DO Attending Provider Active St art: September 06, 2024 End: September 06, 2024 Dr. Aicha Blackwood DO Referring Provider Active St art: September 06, 2024 End: September 06, 2024 Team Status: Active Member Role/Relationship Status Dates Dr. Aicha Blackwood DO Primary Care Provider Active Start: September 06, 2024 Dr. Aicha Blackwood DO Referring Provider Active St art: September 06, 2024 Dr. Edwardo Calderon MD Attending Provider Active S tart: September 06, 2024 Team Status: Inactive Member Role/Relationship Status Dates Dr. Aicha Blackwood DO Primary Care Provider Active Start: September 06, 2024 End: September 06, 2024 Dr. Aicha Blackwood DO Referring Provider Active St art: September 06, 2024 End: September 06, 2024 Dr. Maite Arceo DC Attending Provider Active S tart: September 06, 2024 End: September 06, 2024 Team Status: Inactive Member Role/Relationship Status Dates Dr. Aicha Blackwood DO Primary Care Provider Active Start: September 24, 2024 End: September 24, 2024 Dr. Aicha Blackwood DO Referring Provider Active St art: September 24, 2024 End: September 24, 2024 Dr. Maite Arceo DC Attending Provider Active S tart: September 24, 2024 End: September 24, 2024 Team Status: Inactive Member Role/Relationship Status Dates Dr. Aicha Blackwood DO Primary Care Provider Active Start: October 08, 2024 End: October 08, 2024 Dr. Aicha Blackwood DO Referring Provider Active St art: October 08, 2024 End: October 08, 2024 Dr. Maite Arceo DC Attending Provider Active S tart: October 08, 2024 End: October 08, 2024 Team Status: Inactive Member Role/Relationship Status Dates Dr. Aicha Blackwood DO Primary Care Provider Active Start: August 23, 2024 End: August 23, 2024 Dr. Maite Arceo DC Attending Provider Active S tart: August 23, 2024 End: August 23, 2024 Dr. Maite Arceo DC Referring Provider Active S tart: August 23, 2024 End: August 23, 2024 Team Status: Inactive Member Role/Relationship Status Dates Dr. Aicha Blackwood DO Primary Care Provider Active Start: August 28, 2024 End: August 28, 2024 Dr. Maite Arceo DC Attending Provider Active S tart: August 28, 2024 End: August 28, 2024 Dr. Maite Arceo DC Referring Provider Active S tart: August 28, 2024 End: August 28, 2024 Team Status: Inactive Member Role/Relationship Status Dates Dr. Aicha Blackwood DO Primary Care Provider Active Start: October 17, 2024 End: October 17, 2024 Dr. Aicha Blackwood DO Referring Provider Active St art: October 17, 2024 End: October 17, 2024 Dr. Narcisa Perez MD Attending Provider Active Start: October 17, 2024 End: October 17, 2024 Team Status: Inactive Member Role/Relationship Status Dates Dr. Aicha Blackwood DO Primary Care Provider Active Start: July 02, 2024 End: July 02, 2024 Dr. Aicha Blackwood DO Referring Provider Active St art: July 02, 2024 End: July 02, 2024 Dr. Maite Arceo DC Attending Provider Active S tart: July 02, 2024 End: July 02, 2024 Team Status: Inactive Member Role/Relationship Status Dates Dr. Aicha Blackwood DO Primary Care Provider Active Start: July 31, 2024 End: July 31, 2024 Dr. Aicha Blackwood DO Referring Provider Active St art: July 31, 2024 End: July 31, 2024 Dr. Maite Arceo DC Attending Provider Active S tart: July 31, 2024 End: July 31, 2024 Team Status: Inactive Member Role/Relationship Status Dates Dr. Aicha Blackwood DO Primary Care Provider Active Start: August 02, 2024 End: August 02, 2024 Dr. Aicha Blackwood DO Attending Provider Active St art: August 02, 2024 End: August 02, 2024 Dr. Aicha Blackwood DO Referring Provider Active St art: August 02, 2024 End: August 02, 2024 Team Status: Active Member Role/Relationship Status Dates Dr. Carlos Field MD Attending Provider Active Start: August 02, 2024 Dr. Aicha Blackwood DO Referring Provider Active St art: August 02, 2024 Team Status: Inactive Member Role/Relationship Status Dates Dr. Aicha Blackwood DO Primary Care Provider Active Start: August 09, 2024 End: August 09, 2024 Dr. Aicha Blackwood DO Referring Provider Active St art: August 09, 2024 End: August 09, 2024 Dr. Maite Arceo DC Attending Provider Active S tart: August 09, 2024 End: August 09, 2024 Team Status: Inactive Member Role/Relationship Status Dates Dr. Aicha Blackwood DO Primary Care Provider Active Start: August 23, 2024 End: August 23, 2024 Dr. Maite Arceo DC Attending Provider Active S tart: August 23, 2024 End: August 23, 2024 Dr. Maite Arceo DC Referring Provider Active S tart: August 23, 2024 End: August 23, 2024 Team Status: Inactive Member Role/Relationship Status Dates Dr. Aicha Blackwood DO Primary Care Provider Active Start: August 28, 2024 End: August 28, 2024 Dr. Maite Arceo DC Attending Provider Active S tart: August 28, 2024 End: August 28, 2024 Dr. Maite Arceo DC Referring Provider Active S tart: August 28, 2024 End: August 28, 2024 Team Status: Inactive Member Role/Relationship Status Dates Dr. Aicha Fast , DO Primary Care Provider Active Start: September 04, 2024 Dr. Narcisa Perez MD Attending Provider Active Start: September 04, 2024 Team Status: Inactive Member Role/Relationship Status Dates Dr. Aicha Blackwood DO Primary Care Provider Active Start: September 06, 2024 End: September 06, 2024 Dr. Aicha Blackwood DO Attending Provider Active St art: September 06, 2024 End: September 06, 2024 Dr. Aicha Blackwood DO Referring Provider Active St art: September 06, 2024 End: September 06, 2024 Team Status: Active Member Role/Relationship Status Dates Dr. Aicha Blackwood DO Primary Care Provider Active Start: September 06, 2024 Dr. Aicha Blackwood DO Referring Provider Active St art: September 06, 2024 Dr. Edwardo Calderon MD Attending Provider Active S tart: September 06, 2024 Team Status: Inactive Member Role/Relationship Status Dates Dr. Aicha Blackwood DO Primary Care Provider Active Start: September 06, 2024 End: September 06, 2024 Dr. Aicha Blackwood DO Referring Provider Active St art: September 06, 2024 End: September 06, 2024 Dr. Maite Arceo DC Attending Provider Active S tart: September 06, 2024 End: September 06, 2024 Team Status: Inactive Member Role/Relationship Status Dates Dr. Aicha Blackwood DO Primary Care Provider Active Start: September 24, 2024 End: September 24, 2024 Dr. Aicha Blackwood DO Referring Provider Active St art: September 24, 2024 End: September 24, 2024 Dr. Maite Arceo DC Attending Provider Active S tart: September 24, 2024 End: September 24, 2024 Team Status: Inactive Member Role/Relationship Status Dates Dr. Aicha Blackwood DO Primary Care Provider Active Start: October 08, 2024 End: October 08, 2024 Dr. Aicha Blackwood DO Referring Provider Active St art: October 08, 2024 End: October 08, 2024 Dr. Maite Arceo DC Attending Provider Active S tart: October 08, 2024 End: October 08, 2024 Team Status: Inactive Member Role/Relationship Status Dates Dr. Aicha Blackwood DO Primary Care Provider Active Start: October 17, 2024 End: October 17, 2024 Dr. Aicha Blackwood DO Referring Provider Active St art: October 17, 2024 End: October 17, 2024 Dr. Narcisa Perez MD Attending Provider Active Start: October 17, 2024 End: October 17, 2024 Team Status: Active Member Role/Relationship Status Dates Dr. Aicha Blakcwood DO Primary Care Provider Active Start: October 24, 2024 Dr. Aicha Blackwood DO Attending Provider Active St art: October 24, 2024 Dr. Aicha Blackwood DO Referring Provider Active St art: October 24, 2024 Team Status: Inactive Member Role/Relationship Status Dates Dr. Aicha Blackwood DO Primary Care Provider Active Start: October 30, 2024 End: October 30, 2024 Dr. Aicha Blackwood DO Referring Provider Active St art: October 30, 2024 End: October 30, 2024 Dr. Maite Arceo DC Attending Provider Active S tart: October 30, 2024 End: October 30, 2024 Team Status: Inactive Member Role/Relationship Status Dates Dr. Aicha Blackwood DO Primary Care Provider Active Start: July 31, 2024 End: July 31, 2024 Dr. Aicha Blackwood DO Referring Provider Active St art: July 31, 2024 End: July 31, 2024 Dr. Maite Arceo DC Attending Provider Active S tart: July 31, 2024 End: July 31, 2024 Team Status: Inactive Member Role/Relationship Status Dates Dr. Aicha Blackwood DO Primary Care Provider Active Start: August 02, 2024 End: August 02, 2024 Dr. Aicha Blackwood DO Attending Provider Active St art: August 02, 2024 End: August 02, 2024 Dr. Aicha Blackwood DO Referring Provider Active St art: August 02, 2024 End: August 02, 2024 Team Status: Active Member Role/Relationship Status Dates Dr. Carlos Field MD Attending Provider Active Start: August 02, 2024 Dr. Aicha Blackwood DO Referring Provider Active St art: August 02, 2024 Team Status: Inactive Member Role/Relationship Status Dates Dr. Aicha Blackwood DO Primary Care Provider Active Start: August 09, 2024 End: August 09, 2024 Dr. Aicha Blackwood DO Referring Provider Active St art: August 09, 2024 End: August 09, 2024 Dr. Maite Arceo DC Attending Provider Active S tart: August 09, 2024 End: August 09, 2024 Team Status: Inactive Member Role/Relationship Status Dates Dr. Aicha Blackwood DO Primary Care Provider Active Start: August 23, 2024 End: August 23, 2024 Dr. Maite Arceo DC Attending Provider Active S tart: August 23, 2024 End: August 23, 2024 Dr. Maite Arceo DC Referring Provider Active S tart: August 23, 2024 End: August 23, 2024 Team Status: Inactive Member Role/Relationship Status Dates Dr. Aicha Blackwood DO Primary Care Provider Active Start: August 28, 2024 End: August 28, 2024 Dr. Maite Arceo DC Attending Provider Active S tart: August 28, 2024 End: August 28, 2024 Dr. Maite Arceo DC Referring Provider Active S tart: August 28, 2024 End: August 28, 2024 Team Status: Inactive Member Role/Relationship Status Dates Dr. Aicha Blackwood DO Primary Care Provider Active Start: September 04, 2024 Dr. Narcisa Perez MD Attending Provider Active Start: September 04, 2024 Team Status: Inactive Member Role/Relationship Status Dates Dr. Aicha Blackwood DO Primary Care Provider Active Start: September 06, 2024 End: September 06, 2024 Dr. Aicha Blackwood DO Attending Provider Active St art: September 06, 2024 End: September 06, 2024 Dr. Aicha Blackwood DO Referring Provider Active St art: September 06, 2024 End: September 06, 2024 Team Status: Active Member Role/Relationship Status Dates Dr. Aicha Blackwood DO Primary Care Provider Active Start: September 06, 2024 Dr. Aicha Blackwood DO Referring Provider Active St art: September 06, 2024 Dr. Edwardo Calderon MD Attending Provider Active S tart: September 06, 2024 Team Status: Inactive Member Role/Relationship Status Dates Dr. Aicha Blackwood DO Primary Care Provider Active Start: September 06, 2024 End: September 06, 2024 Dr. Aicha Blackwood DO Referring Provider Active St art: September 06, 2024 End: September 06, 2024 Dr. Maite Arceo DC Attending Provider Active S tart: September 06, 2024 End: September 06, 2024 Team Status: Inactive Member Role/Relationship Status Dates Dr. Aicha Blackwood DO Primary Care Provider Active Start: September 24, 2024 End: September 24, 2024 Dr. Aicha Blackwood DO Referring Provider Active St art: September 24, 2024 End: September 24, 2024 Dr. Maite Arceo DC Attending Provider Active S tart: September 24, 2024 End: September 24, 2024 Team Status: Inactive Member Role/Relationship Status Dates Dr. Aicha Blackwood DO Primary Care Provider Active Start: October 08, 2024 End: October 08, 2024 Dr. Aicha Blackwood DO Referring Provider Active St art: October 08, 2024 End: October 08, 2024 Dr. Maite Arceo DC Attending Provider Active S tart: October 08, 2024 End: October 08, 2024 Team Status: Inactive Member Role/Relationship Status Dates Dr. Aicha Blackwood DO Primary Care Provider Active Start: October 17, 2024 End: October 17, 2024 Dr. Aicha Blackwood DO Referring Provider Active St art: October 17, 2024 End: October 17, 2024 Dr. Narcisa Perez MD Attending Provider Active Start: October 17, 2024 End: October 17, 2024 Team Status: Inactive Member Role/Relationship Status Dates Dr. Aicha Blackwood DO Primary Care Provider Active Start: October 30, 2024 End: October 30, 2024 Dr. Aicha Blackwood DO Referring Provider Active St art: October 30, 2024 End: October 30, 2024 Dr. Maite Arceo DC Attending Provider Active S tart: October 30, 2024 End: October 30, 2024 Team Status: Inactive Member Role/Relationship Status Dates Dr. Aicha Blackwood DO Primary Care Provider Active Start: November 06, 2024 End: November 06, 2024 Dr. Aicha Blackwood DO Attending Provider Active St art: November 06, 2024 End: November 06, 2024 Dr. Aicha Blackwood DO Referring Provider Active St art: November 06, 2024 End: November 06, 2024 Team Status: Active Member Role/Relationship Status Dates Dr. Aicha Blackwood DO Primary Care Provider Active Start: November 19, 2024 Dr. Aicha Blackwood DO Attending Provider Active St art: November 19, 2024 Dr. Aicha Blackwood DO Referring Provider Active St art: November 19, 2024 Team Status: Inactive Member Role/Relationship Status Dates Dr. Aicha Blackwood DO Primary Care Provider Active Start: November 19, 2024 End: November 19, 2024 Dr. Aicha Blackwood DO Attending Provider Active St art: November 19, 2024 End: November 19, 2024 Dr. Aicha Blackwood DO Referring Provider Active St art: November 19, 2024 End: November 19, 2024 Team Status: Active Member Role/Relationship Status Dates Dr. Aicha Blackwood DO Primary care physician Active Team Status: Inactive Member Role/Relationship Status Dates Dr. Aicha Blackwood DO Primary care physician Active Start: August 09, 2024 End: August 09, 2024 Dr. Aicha Blackwood DO Referring Provider Active St art: August 09, 2024 End: August 09, 2024 Dr. Maite Arceo DC Attending physician Active Start: August 09, 2024 End: August 09, 2024 Team Status: Inactive Member Role/Relationship Status Dates Dr. Aicha Blackwood DO Primary care physician Active Start: August 23, 2024 End: August 23, 2024 Dr. Maite Arceo DC Attending physician Active Start: August 23, 2024 End: August 23, 2024 Dr. Maite Arceo DC Referring Provider Active S tart: August 23, 2024 End: August 23, 2024 Team Status: Inactive Member Role/Relationship Status Dates Dr. Aicha Blackwood DO Primary care physician Active Start: August 28, 2024 End: August 28, 2024 Dr. Maite Arceo DC Attending physician Active Start: August 28, 2024 End: August 28, 2024 Dr. Maite Arceo DC Referring Provider Active S tart: August 28, 2024 End: August 28, 2024 Team Status: Inactive Member Role/Relationship Status Dates Dr. Aicha Blackwood DO Primary care physician Active Start: September 04, 2024 Dr. Narcisa Perez MD Attending physician Active Start: September 04, 2024 Team Status: Inactive Member Role/Relationship Status Dates Dr. Aicha Blackwood DO Primary care physician Active Start: September 06, 2024 End: September 06, 2024 Dr. Aicha Blackwood DO Attending physician Active S tart: September 06, 2024 End: September 06, 2024 Dr. Aicha Blackwood DO Referring Provider Active St art: September 06, 2024 End: September 06, 2024 Team Status: Active Member Role/Relationship Status Dates Dr. Aicha Blackwood DO Primary care physician Active Start: September 06, 2024 Dr. Aicha Blackwood DO Referring Provider Active St art: September 06, 2024 Dr. Edwardo Calderon MD Attending physician Active Start: September 06, 2024 Team Status: Inactive Member Role/Relationship Status Dates Dr. Aicha Blackwood DO Primary care physician Active Start: September 06, 2024 End: September 06, 2024 Dr. Aicha Blackwood DO Referring Provider Active St art: September 06, 2024 End: September 06, 2024 Dr. Maite Arceo DC Attending physician Active Start: September 06, 2024 End: September 06, 2024 Team Status: Inactive Member Role/Relationship Status Dates Dr. Aicha Blackwood DO Primary care physician Active Start: September 24, 2024 End: September 24, 2024 Dr. Aicha Blackwood DO Referring Provider Active St art: September 24, 2024 End: September 24, 2024 Dr. Maite Arceo DC Attending physician Active Start: September 24, 2024 End: September 24, 2024 Team Status: Inactive Member Role/Relationship Status Dates Dr. Aicha Blackwood DO Primary care physician Active Start: October 08, 2024 End: October 08, 2024 Dr. Maite Arceo DC Attending physician Active Start: October 08, 2024 End: October 08, 2024 Dr. Maite Arceo DC Referring Provider Active S tart: October 08, 2024 End: October 08, 2024 Team Status: Inactive Member Role/Relationship Status Dates Dr. Aicha Blackwood DO Primary care physician Active Start: October 17, 2024 End: October 17, 2024 Dr. Aicha Blackwood DO Referring Provider Active St art: October 17, 2024 End: October 17, 2024 Dr. Narcisa Perez MD Attending physician Active Start: October 17, 2024 End: October 17, 2024 Team Status: Inactive Member Role/Relationship Status Dates Dr. Aicha Blackwood DO Primary care physician Active Start: October 30, 2024 End: October 30, 2024 Dr. Aicha Blackwood DO Referring Provider Active St art: October 30, 2024 End: October 30, 2024 Dr. Maite Arceo DC Attending physician Active Start: October 30, 2024 End: October 30, 2024 Team Status: Inactive Member Role/Relationship Status Dates Dr. Aicha Blackwood DO Primary care physician Active Start: November 06, 2024 End: November 06, 2024 Dr. Aicha Blackwood DO Attending physician Active S tart: November 06, 2024 End: November 06, 2024 Dr. Aicha Blackwood DO Referring Provider Active St art: November 06, 2024 End: November 06, 2024 Team Status: Inactive Member Role/Relationship Status Dates Dr. Aicha Blackwood DO Primary care physician Active Start: November 19, 2024 End: November 19, 2024 Dr. Aicha Blackwood DO Attending physician Active S tart: November 19, 2024 End: November 19, 2024 Dr. Aicha Blackwood DO Referring Provider Active St art: November 19, 2024 End: November 19, 2024 Team Status: Inactive Member Role/Relationship Status Dates Dr. Aicha Blackwood DO Primary care physician Active Start: November 26, 2024 End: November 26, 2024 Dr. Aicha Blackwood DO Referring Provider Active St art: November 26, 2024 End: November 26, 2024 Dr. Maite Arceo DC Attending physician Active Start: November 26, 2024 End: November 26, 2024 Team Status: Inactive Member Role/Relationship Status Dates Dr. Aicha Blackwood DO Primary care physician Active Start: September 24, 2024 End: September 24, 2024 Dr. Aicha Blackwood DO Referring Provider Active St art: September 24, 2024 End: September 24, 2024 Dr. Maite Arceo DC Attending physician Active Start: September 24, 2024 End: September 24, 2024 Team Status: Inactive Member Role/Relationship Status Dates Dr. Aicha Blackwood DO Primary care physician Active Start: October 08, 2024 End: October 08, 2024 Dr. Maite Arceo DC Attending physician Active Start: October 08, 2024 End: October 08, 2024 Dr. Maite Arceo DC Referring Provider Active S tart: October 08, 2024 End: October 08, 2024 Team Status: Inactive Member Role/Relationship Status Dates Dr. Aicha Blackwood DO Primary care physician Active Start: October 17, 2024 End: October 17, 2024 Dr. Aicha Blackwood DO Referring Provider Active St art: October 17, 2024 End: October 17, 2024 Dr. Narcisa Perez MD Attending physician Active Start: October 17, 2024 End: October 17, 2024 Team Status: Inactive Member Role/Relationship Status Dates Dr. Aicha Blackwood DO Primary care physician Active Start: October 30, 2024 End: October 30, 2024 Dr. Aciha Blackwood , Referring Provider Active St art: October 30, 2024 End: October 30, 2024 Dr. Maite Arceo DC Attending physician Active Start: October 30, 2024 End: October 30, 2024 Team Status: Inactive Member Role/Relationship Status Dates Dr. Aicha Blackwood DO Primary care physician Active Start: November 06, 2024 End: November 06, 2024 Dr. Aicha Blackwood DO Attending physician Active S tart: November 06, 2024 End: November 06, 2024 Dr. Aicha Blackwood DO Referring Provider Active St art: November 06, 2024 End: November 06, 2024 Team Status: Inactive Member Role/Relationship Status Dates Dr. Aicha Blackwood DO Primary care physician Active Start: November 19, 2024 End: November 19, 2024 Dr. Aicha Blackwood DO Attending physician Active S tart: November 19, 2024 End: November 19, 2024 Dr. Aicha Blackwood DO Referring Provider Active St art: November 19, 2024 End: November 19, 2024 Team Status: Inactive Member Role/Relationship Status Dates Dr. Aicha Blackwood DO Primary care physician Active Start: November 26, 2024 End: November 26, 2024 Dr. Aicha Blackwood DO Referring Provider Active St art: November 26, 2024 End: November 26, 2024 Dr. Maite Arceo DC Attending physician Active Start: November 26, 2024 End: November 26, 2024 Team Status: Inactive Member Role/Relationship Status Dates Dr. Aicha Blackwood DO Primary care physician Active Start: December 24, 2024 End: December 24, 2024 Dr. Aicha Blackwood DO Referring Provider Active St art: December 24, 2024 End: December 24, 2024 Dr. Maite Arceo DC Attending physician Active Start: December 24, 2024 End: December 24, 2024 FOR RECORDS PERTAINING TO PATIENTS WHO ARE OR HAVE BEEN ENROLLED IN A CHEMICAL DEPENDENCY/SUBSTANCEABUSE PROGRAM, SOME INFORMATION MAY BE OMITTED. This clinical summary was aggregated from multiple sources. Caution should be exercised in using it in the provision of clinical care. This summary normalizes information from multiple sources, and as a consequence, information in this document may materially change the coding, format and clinical context of patient data. In addition, data may be omitted in some cases. CLINICAL DECISIONS SHOULD BE BASED ON THE PRIMARY CLINICAL RECORDS. [facility] [employer], [facility]. provides no warranty or guarantee of the accuracy or completeness of information in this document.
== END | disposition home or self-care (01) ==
LOC: US 14:12
PROVIDERS: PCP Internal Medicine; Referring Provider Internal Medicine; Visit Provider Internal Medicine
DX: R14.0 Abdominal distension (gaseous) (principal)
CPT/HCPCS: 76856

== ENCOUNTER → 2025-02-11 | Outpatient (CLI) | payer MEDICARE, OTHER, SELFPAY ==
--- OUTSIDE RECORDS SUMMARY | 2025-02-11 07:14 | XMS RPT_ITS | CCD ---
Author Organization [facility] Care Team Providers Care Bioinformatics Engineer Name Role Phone Dr. Edwardo Petit Primary Care Provider Dr. Edwardo Petit Referring Provider 1([facility])[phone] Maite Arceo Attending Provider 1([facility]) 25 Dr. Edwardo Petit Referring Provider 1([facility])[phone] Maite Arceo Attending Provider 1([facility]) 25 Dr. Edwardo Petit Primary Care Provider 1([facility])[phone] Dr. Maite Arceo Referring Provider 1([facility]) 25 Dr. Edwardo Petit Primary Care Provider 1([facility])[phone] Dr. Edwardo Petit Referring Provider 1([facility])[phone] Maite Arceo Attending Provider 1([facility]) 25 Dr. Maite Arceo Referring Provider 1([facility]) 25 Dr. Edwardo Petit Primary Care Provider 1([facility])[phone] Dr. Edwardo Petit Referring Provider 1([facility])[phone] Maite Arceo Attending Provider 1([facility]) 25 Fast DO, Aicha A Unavailable Laura Avila MD Unavailable [phone] Elkin King Unavailable Bry LEAHY, Darin Quesada Unavailable Tiffanie Bhagat Unavailable Unavailable Debbie ALTAMIRANO, Joaquina Unavailable Unavailable Unavailable Unavailable Dr. Edwardo Petit Primary Care Provider 1([facility])[phone] Dr. Edwardo Petit Referring Provider 1([facility])[phone] Maite Arceo Attending Provider 1([facility])[phone] Fast, Dr. Holcomb Primary Care Provider 1([facility]) [phone] Fast, Dr. Holcomb Referring Provider 1([facility])[phone] Fast, Dr. Holcomb Other Provider Belal, Dr. Martinez Attending Provider 1([facility])[phone] Fast DO, Dr. Holcomb Primary Care Provider 1([facility])[phone] Fast DO, Dr. Holcomb Referring Provider 1([facility])3433 Dossi DC, Dr. Arora Attending Provider 1([facility]) Fast DO, Dr. Holcomb Attending Provider 1([facility])[phone] Jerome DRINK WAITER-C, Tiffanie Attending Provider Jerome DRINK WAITER-C, Tiffanie Referring Provider Fast DO, Dr. Holcomb Primary Care Provider 1([facility])2 Fast DO, Dr. Holcomb Referring Provider 1([facility])[phone] Dossi DC, Dr. Arora Attending Provider 1([facility]) Fast DO, Dr. Holcomb Primary Care Provider 1([facility])2 Fast DO, Dr. Holcomb Referring Provider 1([facility])[phone] Dossi DC, Dr. Arora Attending Provider 1([facility]) Jerome DRINK WAITER-C, Tiffanie Attending Provider Fast DO, Dr. Holcomb Attending Provider 1([facility])[phone] Nydia LEAHY, Dr. Arrington Attending Provider 1([facility])[phone] Emir LEAHY, Dr. Carlos Olivier Attending Provider 1([facility])[phone] Fast DO, Dr. Holcomb Primary Care Provider 1([facility])2 Fast DO, Dr. Holcomb Referring Provider 1([facility])3433 Dossi DC, Dr. Arora Attending Provider 1([facility]) Kvng LEAHY, Dr. Brooke Attending Provider 1([facility])5710 Fast DO, Dr. Holcomb Primary Care Provider 1([facility])[phone] Fast DO, Dr. Holcomb Attending Provider 1([facility]) 343 Fast DO, Dr. Holcomb Referring Provider 1([facility])3433 Dossi DC, Dr. Arora Attending Provider [phone] Ana LEAHY, Dr. Brewster Attending Provider Dossi DC, Dr. Arora Referring Provider [phone] Ana LEAHY, Dr. Brewster Attending Provider Fast DO, Dr. Holcobm Primary Care Provider [phone] Fast DO, Dr. Holcomb Referring Provider [phone] Fast DO, Dr. Holcomb Attending Provider [phone] Fast DO, Dr. Holcomb Primary Care Provider Fast DO, Dr. Holcomb Referring Provider [phone] Dossi DC, Dr. Arora Attending Provider [phone] Fast DO, Dr. Holcomb Primary Care Physician Fast DO, Dr. Holcomb Referring Provider 1([facility])[phone] Dossi DC, Dr. Arora Attending Physician 1([facility])20 Ana LEAHY, Dr. Brewster Attending Physician Fast DO, Dr. Holcomb Attending Physician [phone] Kvng LEAHY, Dr. Brooke Attending Physician 1([facility])[phone] Fast DO, Dr. Holcomb Primary Care [...] Facility (20 sources) Amoxicillin Drug Allergy 06-30-[address] [facility] (20 sources) Clarithromycin Drug Allergy 06-30-19 [facility] (20 sources) Latex; Translations: [Latex] Propensity to adverse reactions 06-30-19 [facility] Comment on above: skin irritation (20 sources) levoFLOXacin Drug Allergy 06-30-19 [facility] Comment on above: HISTORY OF TENDONITI S (20 sources) Naproxen Drug Allergy 06-30-19 [facility] (20 sources) Nizatidine Drug Allergy 06-30-[address] [facility] (20 sources) Sulfonamides (Antibiotic); Translations: [Sulfa (Sulfonamide Antibiotics)] Allergy to substance 06-30-19 [facility] (20 sources) Ciprofloxacin Drug Allergy 06-17-19 [facility] (8 sources) Ciprofloxacin Drug Allergy Comprehensive Internal [...] Phone: (1 source) Amoxicillin Drug Allergy 12-25-19 [facility] (1 source) Ciprofloxacin Drug Allergy 12-25-19 [facility] (1 source) Clarithromycin Drug Allergy 12-25-19 [facility] (1 source) Latex Drug allergy (disorder) 12-25-19 [facility] (1 source) levoFLOXacin Drug Allergy 12-25-19 [facility] (1 source) Naproxen Drug Allergy 12-25-19 [facility] (1 source) Nizatidine Drug Allergy 12-25-19 [facility] Medications Current Medications Medication Drug Class(es) [...] mg oral tablet bid (500 mg) Active [id number] Jum-Jknh-Xtg-Asb-C (18 sources) Osmotic Laxative, Vitamin C Start: 05-08-2024 [id number] Zul-Xwrj-Wzw-Asb-C (Plenvu) 140-9-5.2 gram powder in packet, sequential Active 0 PO .COMPLEX 3 May 08, 2024 12:00am Take as directed for split dose bowel prep Complies with drug therapy Start: 05-08-2024 [id number] Ladd m-Ninu-Ajc-Asb-C (Plenvu) 140-9-5.2 gram powder in packet, sequential Active 0 PO .COMPLEX 3 May 08, 2024 1:00am Take as directed for split dose bowel prep Complies with drug therapy Start: 05-08-2024 [id number]-Fot Ladd z-Olhb-Bqr-Asb-C (Plenvu) 140-9-5.2 gram powder in packet, sequential Active 0 PO .COMPLEX 3 May 08, 2024 1:00am Take as directed for split dose bowel prep Start: 05-08-2024 Gbs9895-Scj Ladd p-Qrwr-Gmj-Asb-C (Plenvu) 140-9-5.2 gram powder in packet, sequential [...] 2024 12:00am May 08, 2024 8:50am calcitriol 0.61292 mg oral capsule (18 sources) Vitamin D3 [...] r 0 days Refills: 0 Ordered: 24-Dec-2022 [employer] RECLAIMER, Joaquina End : 24-Dec-2022 Discontinued azelastine hydrochloride [...] for 0 days Refills: 0 Ordered: 24-Dec-2022 [employer] RECLAIMER, Joaquina End : 24-Dec-2022 Discontinued cholecalciferol 0.025 [...] 24-Dec-2022 Inactive take 1 capsule by mo [facility] once daily cholecalciferol (vitamin D3) 25 mcg [...] End : 30-Jun-2011 Inactive 90 day estradiol 0.234001 mg/hr vaginal system (8 sources) Estrogen Estring [...] Quantity: 30 {Tablet} Refills: 0 Ordered: 20-Jan-2010 [facility] Start : 20-Jan-2010 End : 19-Feb-2010 [...] on above: This order discontin ued per [facility]. naproxen 500 mg oral tablet (16 sources) [...] on above: This order discontin ued per [facility]. triamcinolone acetonide 5 mg/ml topical cream (16 [...] 5 Chronic Comment on above: working with [facility] on this thoracolumbar/cervic al Spondylosis; intervertebral disc [...] Absolute Lymph 1.43 X10 3/uL Normal 0.83-4.51 [facility] Comment on above: Performed By: #### L 506.1001, L500.4100, L501.9985, L100.0100, L500.4050 ####[facility] [address] [place], [address] Absolute Neut 2.6 X10 3/uL Normal 2.0-7.7 [facility] Comment on above: Performed By: #### L 506.1001, L500.4100, L501.9985, L100.0100, L500.4050 ####[facility] [address] [place], [address] Basophils/100 WBC (Bld) 1.0 % Normal 0-1 [facility] Comment on above: Performed By: #### L 506.1001, L500.4100, L501.9985, L100.0100, L500.4050 ####[facility] [address] [place], [address] Eosinophils/100 WBC (Bld) 4.1 % Normal 0-5 [facility] Comment on above: Performed By: #### L 506.1001, L500.4100, L501.9985, L100.0100, L500.4050 ####[facility] [address] [place], [address] Erythrocyte distribution width (RBC) [Ratio] 12.7 % Normal 11.6-14.6 [facility] Comment on above: Performed By: #### L 506.1001, L500.4100, L501.9985, L100.0100, L500.4050 ####[facility] [address] [place], [address] Hematocrit (Bld) [Volume fraction] 42.0 % Normal 37-47 [facility] Comment on above: Performed By: #### L 506.1001, L500.4100, L501.9985, L100.0100, L500.4050 ####[facility] [address] [place], [address] Hemoglobin (Bld) [Mass/Vol] 13.9 g/dL Normal 12.0-15.0 [facility] Comment on above: Performed By: #### L 506.1001, L500.4100, L501.9985, L100.0100, L500.4050 ####[facility] [address] [place], [address] IG% 0.200 Normal 0.0-0.9 [facility] Comment on above: Result Comment: IG% - Immature Granulocytes (promyelocytes, myelocytes and metamyelocytes) > 1% indicates that a LEFT SHIFT is Present. Performed By: #### L 506.1001, L500.4100, L501.9985, L100.0100, L500.4050 ####[facility] [address] [place], [address] Lymphocytes/100 WBC (Bld) 29.2 % Normal 19-41 [facility] Comment on above: Performed By: #### L 506.1001, L500.4100, L501.9985, L100.0100, L500.4050 ####[facility] [address] [place], [address] MCH (RBC) [Entitic mass] 29.3 pg Normal 27.0-32.0 [facility] Comment on above: Performed By: #### L 506.1001, L500.4100, L501.9985, L100.0100, L500.4050 ####[facility] [address] [place], [address] MCHC (RBC) [Mass/Vol] 33.1 g/dL Normal 32-36 [facility] Comment on above: Performed By: #### L 506.1001, L500.4100, L501.9985, L100.0100, L500.4050 ####[facility] [address] [place], [address] MCV (RBC) [Entitic vol] 88.4 fL Normal 81-99 [facility] Comment on above: Performed By: #### L 506.1001, L500.4100, L501.9985, L100.0100, L500.4050 ####[facility] [address] [place], [address] Monocytes/100 WBC (Bld) 11.9 % High 0-10 [facility] Comment on above: Performed By: #### L 506.1001, L500.4100, L501.9985, L100.0100, L500.4050 ####[facility] [address] [place], [address] Neutrophils/100 WBC (Bld) 53.6 % Normal 47-70 [facility] Comment on above: Performed By: #### L 506.1001, L500.4100, L501.9985, L100.0100, L500.4050 ####[facility] [address] [place], [address] Nucleated RBC (Bld) [#/Vol] 0 10*3/uL Normal 0-5 [facility] Comment on above: Performed By: #### L 506.1001, L500.4100, L501.9985, L100.0100, L500.4050 ####[facility] [address] [place], [address] Platelet mean volume (Bld) [Entitic vol] 9.1 fL Normal 6.2-12.0 [facility] Comment on above: Performed By: #### L 506.1001, L500.4100, L501.9985, L100.0100, L500.4050 ####[facility] [address] [place], [address] Platelets (Bld) [#/Vol] 339 10*3/uL Normal 150-450 [facility] Comment on above: Performed By: #### L 506.1001, L500.4100, L501.9985, L100.0100, L500.4050 ####[facility] [address] [place], [address] RBC (Bld) [#/Vol] 4.75 10*6/uL Normal 4.2-5.4 [facility] Comment on above: Performed By: #### L 506.1001, L500.4100, L501.9985, L100.0100, L500.4050 ####[facility] [address] [place], [address] RDW SD 41.1 fl Normal 35.1-43.9 [facility] Comment on above: Performed By: #### L 506.1001, L500.4100, L501.9985, L100.0100, L500.4050 ####[facility] [address] [place], [address] WBC (Bld) [#/Vol] 4.9 10*3/uL Normal 4.4-11.[address] [facility] Comment on above: Performed By: #### L 506.1001, L500.4100, L501.9985, L100.0100, L500.4050 ####[facility] [address] [place], [address] Comprehensive Metabolic Prof [facility] 01-11-2025 Albumin [Mass/Vol] 4.2 g/dL Normal 3.4-4.[address] [facility] Comment on above: Performed By: #### L 506.1001, L500.4100, L501.9985, L100.0100, L500.4050 ####[facility] [address] [place], [address] Albumin/Globulin [Mass ratio] 1.4 {ratio} Normal 0.9-2.4 [facility] Comment on above: Performed By: #### L 506.1001, L500.4100, L501.9985, L100.0100, L500.4050 ####[facility] [address] [place], [address] ALK PHOS 54 U/L Normal 35-104 [facility] Comment on above: Performed By: #### L 506.1001, L500.4100, L501.9985, L100.0100, L500.4050 ####[facility] [address] [place], [address] ALT [Catalytic activity/Vol] 9 U/L Normal <=34 [facility] Comment on above: Performed By: #### L 506.1001, L500.4100, L501.9985, L100.0100, L500.4050 ####[facility] [address] [place], [address] AST [Catalytic activity/Vol] 18 U/L Normal <=31 [facility] Comment on above: Performed By: #### L 506.1001, L500.4100, L501.9985, L100.0100, L500.4050 ####[facility] [address] [place], [address] Bilirubin [Mass/Vol] 0.52 mg/dL Normal 0.00-1.30 [facility] Comment on above: Performed By: #### L 506.1001, L500.4100, L501.9985, L100.0100, L500.4050 ####[facility] [address] [place], [address] BUN/CRE 25.7 RATIO High 10-20 [facility] Comment on above: Performed By: #### L 506.1001, L500.4100, L501.9985, L100.0100, L500.4050 ####[facility] [address] [place], [address] Calcium [Mass/Vol] 9.8 mg/dL Normal 7.6-11.[address] [facility] Comment on above: Performed By: #### L 506.1001, L500.4100, L501.9985, L100.0100, L500.4050 ####[facility] [address] [place], [address] Chloride [Moles/Vol] 100 mmol/L Normal 98-108 [facility] Comment on above: Performed By: #### L 506.1001, L500.4100, L501.9985, L100.0100, L500.4050 ####[facility] [address] [place], [address] CO2 [Moles/Vol] 29.2 mmol/L Normal 21.0-32.0 [facility] Comment on above: Performed By: #### L 506.1001, L500.4100, L501.9985, L100.0100, L500.4050 ####[facility] [address] [place], [address] Creatinine [Mass/Vol] 0.66 mg/dL Low 0.70-1.20 [facility] Comment on above: Performed By: #### L 506.1001, L500.4100, L501.9985, L100.0100, L500.4050 ####[facility] [address] [place], [address] GAP 9 Normal 5-15 [facility] Comment on above: Performed By: #### L 506.1001, L500.4100, L501.9985, L100.0100, L500.4050 ####[facility] [address] [place], [address] GFR/1.73 sq M.predicted among non-blacks MDRD (S/P/Bld) [Vol rate/Area] 90 mL/min/{1.73_m2} Normal >60 [facility] Comment on above: Result Comment: mL/m in/1.73m2 CKD-EPI Creatinine Equation (2020) Performed By: #### L 506.1001, L500.4100, L501.9985, L100.0100, L500.4050 ####[facility] [address] [place], [address] Globulin (S) [Mass/Vol] 3.1 g/dL Normal 2.2-4.2 [facility] Comment on above: Performed By: #### L 506.1001, L500.4100, L501.9985, L100.0100, L500.4050 ####[facility] [address] [place], [address] Glucose [Mass/Vol] 100 mg/dL High 70-[address] [facility] Comment on above: Performed By: #### L 506.1001, L500.4100, L501.9985, L100.0100, L500.4050 ####[facility] [address] [place], [address] Potassium [Moles/Vol] 4.1 mmol/L Normal 3.3-5.1 [facility] Comment on above: Performed By: #### L 506.1001, L500.4100, L501.9985, L100.0100, L500.4050 ####[facility] [address] [place], [address] Sodium [Moles/Vol] 138 mmol/L Normal 133-[address] [facility] Comment on above: Performed By: #### L 506.1001, L500.4100, L501.9985, L100.0100, L500.4050 ####[facility] [address] [place], [address] T PROT 7.3 g/dL Normal 5.9-8.4 [facility] Comment on above: Performed By: #### L 506.1001, L500.4100, L501.9985, L100.0100, L500.4050 ####[facility] [address] [place], [address] Urea nitrogen [Mass/Vol] 17 mg/dL Normal 4-19 [facility] Comment on above: Performed By: #### L 506.1001, L500.4100, L501.9985, L100.0100, L500.4050 ####[facility] [address] [place], [address] Hemoglobin A1con 01-11-2025 HbA1c (Bld) [Mass fraction] 5.6 % Normal <=5.6 [facility] Comment on above: Result Comment: Norm al < 5.7 % Prediabetic 5.7 - 6.4 % Diabetic >or= 6.5 % Please note range changes. Performed By: #### L 506.1001, L500.4100, L501.9985, L100.0100, L500.4050 ####[facility] [address] [place], [address] Lipid Profileon 01-11-2025 CHOL:HDL 1.79 Normal [facility] Comment on above: Performed By: #### L 506.1001, L500.4100, L501.9985, L100.0100, L500.4050 ####[facility] [address] [place], [address] Cholesterol [Mass/Vol] 179 mg/dL Normal <=200 [facility] Comment on above: Result Comment: Chol esterol level, Desirable <200 mg/dL Borderline high cholesterol 200-239 mg/dL High cholesterol >=240 mg/dL Recommendations of the NCEP Adult Treatment Panel for the following risk-cutoff thresholds for the [place] population. Performed By: #### L 506.1001, L500.4100, L501.9985, L100.0100, L500.4050 ####[facility] [address] [place], [address] Cholesterol in HDL [Mass/Vol] 100 mg/dL Normal [facility] Comment on above: Result Comment: Ale onal Cholesterol Education Program (NCEP) guidelines: <40 mg/dL: Low HDL-cholesterol (major risk factor for CHD) >= 60 mg/dL: High HDL-cholesterol (negative risk factor for CHD) HDL-cholesterol is affected by a number of factors, e.g. smoking, exercise, hormones, sex and age. Performed By: #### L 506.1001, L500.4100, L501.9985, L100.0100, L500.4050 ####[facility] [address] [place], [address] Cholesterol in LDL [Mass/Vol] 68 mg/dL Normal [facility] Comment on above: Result Comment: Bord cxcojz=705-700 mg/dL Higher Xqkj=684 mg/dL or greater Francois Equation 2020 for LDL-C Performed By: #### L 506.1001, L500.4100, L501.9985, L100.0100, L500.4050 ####[facility] [address] [place], [address] Cholesterol in VLDL [Mass/Vol] 11 mg/dL Normal 5-40 [facility] Comment on above: Performed By: #### L 506.1001, L500.4100, L501.9985, L100.0100, L500.4050 ####[facility] [address] [place], [address] Triglyceride [Mass/Vol] 54 mg/dL Normal [facility] Comment on above: Result Comment: The drugs N-Acetylcysteine and Metamizole may falsely depress this assay. Normal range: <150 mg/dL Borderline High: 150-199 mg/dL High: 200-499 mg/dL Very High: >500 mg/dL Performed By: #### L 506.1001, L500.4100, L501.9985, L100.0100, L500.4050 ####[facility] [address] [place], [address] Vitamin D,25 Hydroxyon 01-11 Vitamin D 25-OH 44.2 ng/mL Normal 30-100 [facility] Comment on above: Result Comment: Briana min D Status Deficiency: <20 ng/mL (50nmol/L) Insufficiency: 20-30 ng/mL (50-75 nmol/L) Sufficiency: 30-100 ng/mL (75-250 nmol/L) Toxicity: >100 ng/mL (>250 nmol/L) Performed By: #### L 506.1001, L500.4100, L501.9985, L100.0100, L500.4050 ####[facility] [address] [place], [address] Chiropractic Reporton 2024 Chiropractic Report [facility] Chiropractic [facility] [place], [place] [address] OFFICE VISIT Date of Service: 12/24/24 MR#: [id number] Acct: [id number] Name: ANTONIO DECKER Rep #: [id number] : 1945 Provider: JOSIAS Rutherford Age/Sex: 79/F Location: [facility] Status: Signed Intake Vital Signs 10/17/24 13:23 [...] PO .COMPLEX #5 tabs 05/08/24 12/24/24 Rx [id number] 140 gram-sod sulfate 9 See Rx Instructions [...] to insp (more content not included)... Normal [facility] Chiropractic Reporton 2024 Chiropractic Report [facility] [address] [place] [address] OFFICE VISIT Date of Service: 11/26/24 MR#: [id number] Acct: [id number] Name: ANTONIO DECKER Rep #: [id number] : 1945 Provider: JOSIAS Rutherford Age/Sex: 79/F Location: [facility] Status: Signed Intake Vital Signs [...] PO .COMPLEX #5 tabs 05/08/24 11/26/24 Rx [id number] 140 gram-sod sulfate 9 See Rx Instructions [...] trapezius, paracervi (more content not included)... Normal [facility] PT D/C Summary (1)on 025 PT D/C Summary (1) [facility] Physical Therapy [facility] [address] [place] [address] / REHABILITATION SERVICES DISCHARGE SUMMARY MR#: [id number] Acct: [id number] Name: ANTONIO DECKER Rep #: [id number] : 1945 79 From: Adrianna OSBORN Referring [...] please feel free to call me at [phone]. Thank you for the referral of this patient. Sincerely, Adrianna Oliva, MPT Balance/Gait/Functional tests Balance/Special Test Scores Functional Gait Assessment Score: 25 % Disability: 16.6700 CATSIB Score (Max score 120 seconds): 120 Dizziness Score: 12 Lower Extremity Functional Score: 55 11/19/24 1421 CC: Dr. Aicha Blackwood DO Signed Normal [facility] Bone density reportOrdered B y: Juanpablo Duran on 11-06-2024 Study report Skeletal system DXA [facility] Imaging Services [address] [place] [address] Dexa Bone Density Study MR#: [id number] Acct: [id number] Name: ANTONIO DECKER Rep #: [id number] : 1945 F 79 From: Bob Duran MD PCP: Dr. Aicha Blackwood DO Status: REG CLI Study:Dexa Bone Density Study Date of Exam: 11/06/24 Exam# [id number] Ordering Dr: Keysha Blackwood ra, DO PROCEDURE: [...] Recommend follow-up as clinically warranted. Reading Location: [place] [address] CC: Dr. Aicha Blackwood DO ~ Cash Checker: Signed [facility] Breast imaging reportOrdered By: Juanpablo Duran on 11-06-2024 Study report [facility] Imaging Services [address] [place] [address] 596111 SCRN MAMM (CAD)W/FREDDIE BILAT MR#: [id number] Acct: [id number] Name: ANTONIO DECKER Rep #: [id number] : 1945 F 79 From: Bob Duran MD PCP: Dr. Aicha Blackwood DO Status: REG CLI Study:SCRN MAMM (CAD)W/FREDDIE BILAT Date of Exa m: 11/06/24 Exam# [id number] Ordering Dr: Keysha Blackwood ra, DO EXAM: [...] be mailed to the patient. Reading Location: [facility] CC: Dr. Aicha Blackwood DO ~ Cash Checker: Signed [facility] Dexa Bone Density Studyon Dexa Bone Density Study [facility] Imaging Services [address] [place], [place] [address] Dexa Bone Density Study MR#: [id number] Acct: [id number] Name: ANTONIO DECKER Rep #: [id number] : 1945 F 79 From: Juanpablo burk MD PCP: Dr. Aicha Blackwood DO Status: REG CLI Study: Dexa Bone Density Study Date of Exam: 11/06/24 Exam# [id number] Ordering Dr: Aicha Blackwood DO PROCEDURE: DEXA [...] Recommend follow-up as clinically warranted. Reading Location: [place] [address] CC: Dr. Aicha Blackwood DO Cash Checker: Signed Normal [facility] SCRN MAMM (CAD)W/FREDDIE BILATo n 11-06-2024 SCRN MAMM (CAD)W/FREDDIE BILAT [facility] Imaging Services [address] [place] [address] SCRN MAMM (CAD)W/FREDDIE BILAT MR#: [id number] Acct: [id number] Name: ANTONIO DECKER Rep #: [id number] : 1945 F 79 From: Juanpablo burk MD PCP: Dr. Aicha Blackwood DO Status: [facility] Study: SCRN MAMM (CAD)W/FREDDIE BILAT Date of Exam: 05/01 Exam# [id number] Ordering Dr: Aicha Blackwood DO EXAM: SCRN [...] be mailed to the patient. Reading Location: [place] [address] CC: Dr. Aicha Blackwood DO Cash Checker: Signed Normal [facility] Chiropractic Reporton 2024 Chiropractic Report [facility] Chiropractic [address] [place] [address] OFFICE VISIT Date of Service: 10/30/24 MR#: [id number] Acct: [id number] Name: ANTONIO DECKER Rep #: [id number] : 1945 Provider: JOSIAS Rutherford Age/Sex: 79/F Location: [facility] Status: Signed Intake Vital Signs 10/08/24 14:01 [...] PO .COMPLEX #5 tabs 05/08/24 10/30/24 Rx [id number] 140 gram-sod sulfate 9 See Rx Instructions [...] trapezius, par (more content not included)... Normal [facility] Inital Evaluation (1) - PTon 10-22-2024 Inital Evaluation (1) - PT [facility] Physical Therapy [facility] [address] [place] [address] / REHABILITATION SERVICES INITIAL EVALUATION MR#: [id number] Acct: [id number] Name: ANTONIO DECKER Rep #: [id number] : 1945 79 From: Adrianna OSBORN Referring Dr.: Dr. Aihca Blackwood DO Status: REG R CR Insurance: MEDICARE PART A B [employer] Patient's Visit Information Visit Information Visit Information: ANTONIO DECEKR is a 79 year old F referred [...] to be FAXED BACK to us at [phone] for Medicare purposes. For Medicare only, by signing this I certify the plan of care. Please let me know if there are questions or concerns regarding this plan of care. Physician Signature: Date: ____ 10/22/24 1048 CC: Dr. Aicha Blackwood DO Signed Normal [facility] MR/Pelon 10-17-2024 MR/DARREL [facility] [address], [address] [place] [address] OFFICE VISIT Date of Service: 10/17/24 MR#: [id number] Acct: [id number] Name: ANTONIO DECKER Rep #: [id number] : 1945 Provider: Dr. Narcisa Garcia i, MD Age/Sex: 79/F Location: [facility] Status: Signed with Addenda ADDENDUM by Dr. 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 Normal [facility] Chiropractic Reporton 2024 Chiropractic Report [facility] [place] [address] OFFICE VISIT Date of Service: 10/08/24 MR#: [id number] Acct: [id number] Name: ANTONIO DECKER Rep #: [id number] : 1945 Provider: JOSIAS Rutherford Age/Sex: 79/F [place] [facility] [place]: Signed Intake Vital Signs 06/06/24 15:18 [...] neuro-noxious chemicals via a myofascial twitch response. [place] were inserted, needle manipulation was performed. Needle removal was performed and pressure was applied when necessary. Hannah (more content not included)... Normal [facility] Chiropractic Reporton 2024 Chiropractic Report [facility] [address] [place] [address] OFFICE VISIT Date of Service: 09/24/24 MR#: [id number] Acct: [id number] Name: ANTONIO DECKER YOAN Rep #: [id number] : 1945 Provider: JOSIAS Rutherford Age/Sex: 79/F Location: [facility] Status: Signed Intake Vital Signs [...] PO .COMPLEX #5 tabs 05/08/24 09/24/24 Rx [id number] 140 gram-sod sulfate 9 See Rx Instructions [...] No t (more content not included)... Normal [facility] Chiropractic Reporton 2024 Chiropractic Report [facility] Chiropractic [address] [place] [address] OFFICE VISIT Date of Service: 09/06/24 MR#: [id number] Acct: [id number] Name: ANTONIO DECKER Rep #: [id number] : 1945 Provider: JOSIAS Rutherford Age/Sex: 79/F Location: [facility] Status: Signed Intake Vital Signs 06/06/24 15:18 [...] PO .COMPLEX #5 tabs 05/08/24 09/06/24 Rx [id number] 140 gram-sod sulfate 9 See Rx Instructions [...] Left S (more content not included)... Normal [facility] Duplex ultrasound of renal a rtery reportOrdered By: Edwardo Calderon on 09-06-2024 Study report [facility] [address] [facility] [place] [address] Renal Artery Duplex Ultrasound 09/06/24 0806 MR#: [id number] Acct: [id number] Name: ANTONIO DECKER Rep #:[id number] : 1945 79 From: Edwardo Mittal [...] ~ Date Dictated: 09/06/24805 Date Transcribed: 09/06/241517 Cash Checker: Signed [facility] Work Phone: Renal Artery Duplex Ultrasou ndon 09-06-2024 Renal Artery Duplex Ultrasound [facility] [address] [place] [address] Renal Artery Duplex Ultrasound 09/06/24805 MR#: [id number] Acct: [id number] Name: ANTONIO DECKER Rep #: [id number] : 1945 79 From: Edwardo Calderon MD [...] DO Date Dictated: 09/06/2406 Date Transcribed: 09/06/241517 Cash Checker: Signed Normal [facility] Chiropractic Reporton 2024 Chiropractic Report [facility] [address] [place] [address] OFFICE VISIT Date of Service: 08/28/24 MR#: [id number] Acct: [id number] Name: ANTONIO DECKER Rep #: [id number] : 1945 Provider: JOSIAS Rutherford Age/Sex: 79/F Location: [facility] Status: Signed Intake Vital Signs [...] PO .COMPLEX #5 tabs 05/08/24 08/28/24 Rx [id number] 140 gram-sod sulfate 9 See Rx Instructions [...] upper tho (more content not included)... Normal [facility] Chiropractic Reporton 2024 Chiropractic Report [facility] [place] [address] OFFICE VISIT Date of Service: 08/23/24 MR#: [id number] Acct: [id number] Name: ANTONIO DECKER Rep #: [id number] : 1945 Provider: JOSIAS Rutherford Age/Sex: 79/F Location: [facility] Status: Signed Intake Vital Signs 06/06/24 15:18 [...] PO .COMPLEX #5 tabs 05/08/24 08/23/24 Rx [id number] 140 gram-sod sulfate 9 See Rx Instructions [...] on t (more content not included)... Normal [facility] Chiropractic Reporton 2024 Chiropractic Report [facility] Chiropractic [facility] [place] [address] OFFICE VISIT Date of Service: 08/09/24 MR#: [id number] Acct: [id number] Name: ANTONIO DECKER Rep #: [id number] : 1945 Provider: JOSIAS Rutherford Age/Sex: 79/F [place] [facility] Status: Signed Intake Vital Signs 06/06/24 15:18 [...] PO .COMPLEX #5 tabs 05/08/24 08/09/24 Rx [id number] 140 gram-sod sulfate 9 See Rx Instructions [...] in the (more content not included)... Normal [facility] Carotid Duplex Ultrasoundon 08-02-2024 Carotid Duplex Ultrasound [facility] [address] [place] [address] Carotid Duplex Ultrasound 08/02/24 1253 MR#: [id number] Acct: [id number] Name: ANTONIO DECKER Rep #: [id number] : 1945 79 From: Carlos Field MD [...] the left vertebral artery. Procedure Carotid Duplex 87704. This is a Carotid Duplex examination using B-mode, color flow and specral Doppler. Exam performed in department. VL/Carotid Duplex Ultrasound Interpretation Summary Mild (<50%) stenosis right extracranial internal carotid. Mild (<50%) stenosis left extracranial internal carotid. Flow within the vertebral arteries is antegrade bilaterally. Ordering Physician: Aicha Blackowod Referring Physician: Aicha Blackwood Performed By: Sarita Winter RVT 08/02/24 6737 Date Carlos Field MD CC: Dr. Aicha Blackwood DO Date Dictated: 08/02/24 1253 Date Transcribed: 08/02/242218 Cash Checker: Signed Normal [facility] Duplex ultrasound of carotid artery reportOrdered By: Carlos Field on 08-02-2024 Study report [facility] [address] [place] [address] Carotid Duplex Ultrasound 08/02/24 1253 MR#: [id number] Acct: [id number] Name: ANTONIO DECKER Rep #:[id number] : 1945 79 From: Carlos Field [...] the left vertebral artery. Procedure Carotid Duplex 48142. This is a Carotid Duplex examination using [...] Date Dictated: 08/02/24 1253 Date Transcribed: 08/02/242218 Cash Checker: Signed [facility] Other Chiropractic Reporton 2024 Chiropractic Report [facility] [address] [place] [address] OFFICE VISIT Date of Service: 07/31/24 MR#: [id number] Acct: [id number] Name: ANTONIO DECKER Rep #: [id number] : 1945 Provider: JOSIAS Rutherford Age/Sex: 79/F Location: [facility] Status: Signed Intake Vital Signs [...] PO .COMPLEX #5 tabs 05/08/24 07/31/24 Rx [id number] 140 gram-sod sulfate 9 See Rx Instructions [...] Yes cervi (more content not included)... Normal [facility] Chiropractic Reporton 2024 Chiropractic Report [facility] [address] [place] [address] OFFICE VISIT Date of Service: 07/02/24 MR#: [id number] Acct: [id number] Name: ANTONIO DECKER Rep #: [id number] : 1945 Provider: JOSIAS Rutherford Age/Sex: 79/F Location: [facility] Status: Signed Intake Vital Signs [...] PO .COMPLEX #5 tabs 05/08/24 07/02/24 Rx [id number] 140 gram-sod sulfate 9 See Rx Instructions [...] and parac (more content not included)... Normal [facility] Inital Evaluation (1) - PTon 06-26-2024 Inital Evaluation (1) - PT [facility] [place] [address] [facility] [place] [address] / REHABILITATION SERVICES INITIAL EVALUATION MR#: [id number] Acct: [id number] Name: ANTONIO DECKER Rep #: [id number] : 1945 79 From: Carlos Luis PT, [...] to be FAXED BACK to us at [phone] for Medicare purposes. For Medicare only, by signing this I certify the plan of care. Please let me know if there are questions or concerns regarding this plan of care. Physician Signature: Date: ____ 06/26/24 1424 CC: Dr. Aicha Blackwood DO [facility] Signed Normal [facility] HIP, UNI W/ Pelvis 2-3 Views on 06-06-2024 HIP, UNI W/ Pelvis 2-3 Views [facility] Imaging Services [address] [place], [place] [address] HIP, UNI W/ Pelvis 2-3 Views MR#: [id number] Acct: [id number] Name: ANTONOI DECKER Rep #: [id number] : 1945 F 79 From: Eric Mcneal DO PCP: Dr. Aicha Blackwodo DO Status: DEP AMB Study: HIP, UNI W/ Pelvis 2-3 Views Date of Exam: 05/01 Exam# [id number] Ordering Dr: Aicha Blackwood DO PROCEDURE: HIP, [...] Location: [place] CC: Dr. Aicha Blackwood DO Cash Checker: Signed Normal [facility] Chiropractic Reporton 2024 Chiropractic Report [facility] Chiropractic [facility] [place] [address] OFFICE VISIT Date of Service: 06/04/24 MR#: [id number] Acct: [id number] Name: ANTONIO DECKER Rep #: [id number] : 1945 Provider: JOSIAS Rutherford Age/Sex: 79/F Location: [facility] Status: Signed Intake Vital Signs [...] spine Orders: (more content not included)... Normal [facility] ENTERIC PATHOGEN PANEL STOOL on 05-02-2024 EP [...] VIBRIO Not Detected Yersinia Not Detected Normal [facility] Comment on above: Performed By: #### M 100.637, M100.6796 ####[facility] [id number], [address] C. difficile DNA XU+probe Q l (Unsp spec)Ordered By: Tiffanie Cano on 05-01-2024 Clostridioides difficile (PCR) [facility] CDIFF (PCR)on 05-01-2024 CDIFF A positive C. diffic ile molecular test does not differentiate between an active C. difficile infection and C. difficile colonization. Use clinical judgement and paired toxin/antigen testing to identify true infection and need for treatment. C diff DNA Spec Ql XU+probe Reference Range: Negative CepDoximity GeneXpert: polymerase chain reaction (PCR) 027 027 NAP1-B1 Presumptive Negative *for epidemiolologic???use C. Diff PCR Negative- No toxigenic C. Diff Detected Normal [facility] Comment on above: Performed By: #### M 100.637, M100.6796 ####[facility] [address] [place], [place], [address] Clostridium difficile detect ion by polymerase chain reactionOrdered By: Tiffanie Cano on 05-01-2024 C. difficile DNA XU+probe Ql (Unsp spec) [facility] Stool enteric pathogen panel by probe and target amplification methodOrdered By: Tiffanie Cano on 05-01-2024 Enteric Bacteriology [facility] Chiropractic Reporton 2024 Chiropractic Report [facility] [address] [place] [address] OFFICE VISIT Date of Service: 04/30/24 MR#: [id number] Acct: [id number] Name: ANTONIO DECKER Rep #: [id number] : 1945 Provider: JOSIAS Rutherford Age/Sex: 79/F Location: [facility] Status: Signed Intake Vital Signs 03/15/24 13:13 [...] Yes misalignm (more content not included)... Normal [facility] Chiropractic Reporton 2024 Chiropractic Report [facility] [address] [place] [id number] OFFICE VISIT Date of Service: 03/19/24 MR#: [id number] Acct: [id number] Name: ANTONIO DECKER Rep #: [id number] : 1945 Provider: JOSIAS Rutherford Age/Sex: 79/F Location: [facility] Status: Signed Intake Vital Signs 02/26/23 19:58 [...] the right (more content not included)... Normal [facility] Gastroenterology Visit Repor ton 03-15-2024 Gastroenterology Visit Report [facility] Gastroenterology [address] [place] [address] OFFICE VISIT Date of Service: 03/15/24 MR#: [id number] Acct: [id number] Name: ANTONIO DECKER Rep #: [id number] : 1945 Provider: JAMAL morgan Age/Sex: 79/F [facility] Status: Signed Intake Vital Signs 02/26/23 19:58 03/15/24 13:13 Height 5 ft 5 in 5 ft 5 in Weight: 144 lb 6 oz BMI 24.0 BP 120/78 Respiration 18 Pulse 74 Pulse Oximetry (%) 97 Oxygen Delivery Method room air Intake Visit Reasons: EST CARE Chief Complaint: establish 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 [facility] Medical History Osteoarthritis Osteopenia Hypoglycemia Coronary artery [...] reports h (more content not included)... Normal [facility] Chiropractic Reporton 2023 Chiropractic Report [facility] [place] [address] OFFICE VISIT Date of Service: 02/16/24 MR#: [id number] Acct: [id number] Name: ANTONIO DECKER Rep #: [id number] : 1945 Provider: JOSIAS Rutherford Age/Sex: 79/F Location: [facility] Status: Signed Intake Vital Signs [...] cervical region: (more content not included)... Normal [facility] PT D/C Summary (1)on 024 PT D/C Summary (1) [facility] Physical Therapy [facility] [address] [facility] [place] [address] / REHABILITATION SERVICES DISCHARGE SUMMARY MR#: [id number] Acct: [id number] Name: ANTONIO DECKER Rep #: [id number] : 1945 79 From: Mena Vergara PT, Cert. MDT Referring Dr.: Dr. Aicha Blackwood DO Status: REG R CR Insurance: MEDICARE PART A B [facility] Discharge Summary D/C summary: It has [...] please feel free to call me at [phone]. Thank you for the referral of this patient. Sincerely, Mena Vergara, PT, Cert MDT Balance/Gait/Functional tests Balance/Special Test Scores Oswestry Neck Score: 0 Improvement % Improvement: 100 02/09/24 1252 CC: Dr. Aicha Blackwood DO [facility] Signed Normal [facility] Basophil percentageOrdered B y: Edwardo Petit on 11-22-2022 Bilirubin [Mass/Vol] 0.40 mg/dL 0.20-1.00 [facility] Comment on above: For patients on eltr ombopag therapy, use of Dimension Waban TBIL is not recommended. Chloride [Moles/Vol] 98 mmol/L 98-107 [facility] Glucose [Mass/Vol] 67 mg/dL 74-[address] [facility] Potassium [Moles/Vol] 3.7 mmol/L 3.5-5.1 [facility] Protein [Mass/Vol] 7.2 g/dL 6.4-8.[address] [facility] Sodium [Moles/Vol] 136 mmol/L 136-[address] [facility] Laboratory - Chemistry and C hemistry - challengeOrdered By: Edwardo Petit on 11-22-2022 ALP [Catalytic activity/Vol] 51 U/L 45-117 [facility] ALT [Catalytic activity/Vol] 16 U/L 13-56 [facility] CO2 [Moles/Vol] 33.0 mmol/L 21.0-32.0 [facility] Globulin (S) [Mass/Vol] 3.9 g/dL 2.2-4.2 [facility] Urea nitrogen/Creatinine [Mass ratio] 19.0 mg/mg 10-20 [facility] No Panel InformationOrdered By: Edwardo Petit on 11-22-2022 Estimated GFR (MDRD) Amer 107 mL/min >60 [facility] Comment on above: GFR Calc Estimated GFR (MDRD) Non-Af Amer 89 mL/min >60 [facility] Comment on above: Non- GFR Calc Vitamin D 25-Hydroxy 37.6 ng/mL [facility] Comment on above: Vitamin D 25(OH) Sta tus Range Deficiency <20 ng/mL (50nmol/L) Insufficiency 20 - 30 ng/mL (50 - 75 nmol/L) Sufficiency 30 - 100 ng/mL (75 - 250 nmol/L) Toxicity >100 ng/mL (>250 nmol/L) Serum or plasma albumin linh urement (mass/volume)Ordered By: Edwardo Petit on 11-22-2022 Albumin [Mass/Vol] 3.3 g/dL 3.2-5.[address] [facility] Serum or plasma albumin/glob ulin mass ratioOrdered By: Edwardo Petit on 11-22-2022 Albumin/Globulin [Mass ratio] 0.8 {ratio} 0.9-2.4 [facility] Serum or plasma calcium linh urement (mass/volume)Ordered By: Edwardo Petit on 11-22-2022 Calcium [Mass/Vol] 8.8 mg/dL 8.5-10.[address] [facility] Serum or plasma creatinine m easurement (mass/volume)Ordered By: Edwardo Petit on 11-22-2022 Creatinine [Mass/Vol] 0.68 mg/dL 0.55-1.02 [facility] Comment on above: The validity of the calculated GFR & GFRAA in patients over 70 years has not been determined. Clinical correlation is essential. Serum or plasma urea nitroge n measurement (mass/volume)Ordered By: Edwardo Petit on 11-22-2022 Urea nitrogen [Mass/Vol] 13 mg/dL 7-18 [facility] Thin prep Papanicolaou smear with manual screeningOrdered By: Edwardo Petit on 11-22-2022 Thin prep Papanicolaou smear with manual screening 11 U/L 15-37 [facility] Thin prep Papanicolaou smear with manual screening 5 5-15 [facility] Absolute lymphocyte countOrd ered By: Edwardo Petit on 10-21-2022 Lymphocytes Auto (Unsp spec) [#/Vol] 1.63 10*3/uL 0.83-4.51 [facility] Basophil percentageOrdered B y: Edwardo Petit on 10-21-2022 Basophils/100 WBC (Bld) 0.8 % 0-1 [facility] Bilirubin [Mass/Vol] 0.60 mg/dL 0.20-1.00 [facility] Comment on above: For patients on eltr ombopag therapy, use of Dimension [place] TBIL is not recommended. Chloride [Moles/Vol] 101 mmol/L 98-107 [facility] Cholesterol [Mass/Vol] 228 mg/dL <200 [facility] Comment on above: <200 mg/dL Desirable 200-240 mg/dL Borderline >240 mg/dL High Risk Eosinophils/100 WBC (Bld) 3.4 % 0-5 [facility] Glucose [Mass/Vol] 84 mg/dL 74-[address] [facility] Neutrophils (Bld) [#/Vol] 2.9 10*3/uL 2.0-7.7 [facility] Neutrophils/100 WBC (Bld) 55.3 % 47-70 [facility] Potassium [Moles/Vol] 3.5 mmol/L 3.5-5.1 [facility] Protein [Mass/Vol] 7.5 g/dL 6.4-8.[address] [facility] Sodium [Moles/Vol] 136 mmol/L 136-[address] [facility] Triglyceride [Mass/Vol] 53 mg/dL <199 [facility] Comment on above: The drugs N-Acetylcy steine and Metamizole may falsely depress this assay.Serum Triglycerides Reference Interval Normal <150 mg/dL Borderline high 150 - 199 mg/dL High 200 - 499 mg/dL Very High > or = 500 mg/dL WBC (Bld) [#/Vol] 5.2 10*3/uL 4.4-11.[address] [facility] Blood erythrocytes count (nu mber/volume)Ordered By: Edwardo Petit on 10-21-2022 RBC (Bld) [#/Vol] 4.82 10*6/uL 4.2-5.4 [facility] Blood hemoglobin measurement (mass/volume)Ordered By: Edwardo Petit on 10-21-2022 Hemoglobin (Bld) [Mass/Vol] 14.5 g/dL 12.0-15.0 [facility] Blood lymphocytes/100 leukoc ytesOrdered By: Edwardo Petit on 10-21-2022 Lymphocytes/100 WBC (Bld) 31.1 % 19-41 [facility] Blood monocytes/100 leukocyt esOrdered By: Edwardo Petit on 10-21-2022 Monocytes/100 WBC (Bld) 9.0 % 0-10 [facility] Blood platelet mean volumeOr dered By: Edwardo Petit on 10-21-2022 Platelet mean volume (Bld) [Entitic vol] 9.2 fL 6.2-12.0 [facility] Determination of erythrocyte mean corpuscular volume (MCV)Ordered By: Edwardo Petit on 10-21-2022 MCV (RBC) [Entitic vol] 91.9 fL 81-99 [facility] Hematocrit Auto (Bld) [Volum e fraction]Ordered By: Edwardo Petit on 10-21-2022 Hematocrit (Bld) [Volume fraction] 44.3 % 37-47 [facility] Laboratory - Chemistry and C hemistry - challengeOrdered By: Edwardo Petit on 10-21-2022 ALP [Catalytic activity/Vol] 52 U/L 45-117 [facility] ALT [Catalytic activity/Vol] 20 U/L 13-56 [facility] CO2 [Moles/Vol] 30.0 mmol/L 21.0-32.0 [facility] Globulin (S) [Mass/Vol] 3.9 g/dL 2.2-4.2 [facility] Magnesium [Mass/Vol] 2.1 mg/dL 1.6-2.6 [facility] Urea nitrogen/Creatinine [Mass ratio] 17.4 mg/mg 10-20 [facility] Laboratory - Hematology and Cell countsOrdered By: Edwardo Petit on 10-21-2022 Erythrocyte distribution width (RBC) [Entitic vol] 42.5 fL 35.1-43.9 [facility] Erythrocyte distribution width (RBC) [Ratio] 12.5 % 11.6-14.6 [facility] Immature granulocytes/100 WBC (Bld) 0.400 % 0.0-0.9 [facility] Comment on above: IG% - Immature Granu locytes (promyelocytes, myelocytes and metamyelocytes) > 1% indicates that a LEFT SHIFT is Present. MCH (RBC) [Entitic mass] 30.1 pg 27.0-32.0 [facility] Nucleated RBC/100 WBC (Bld) [Ratio] 0 % 0-5 [facility] MCHC Auto (RBC) [Mass/Vol]Or dered By: Edwardo Petit on 10-21-2022 MCHC (RBC) [Mass/Vol] 32.7 g/dL 32-36 [facility] No Panel InformationOrdered By: Edwardo Petit on 10-21-2022 Estimated GFR (MDRD) Amer 107 mL/min >60 [facility] Comment on above: GFR Calc Estimated GFR (MDRD) Non-Af Amer 88 mL/min >60 [facility] Comment on above: Non- GFR Calc Parathyroid Hormone (Intact) 40.1 pg/mL 18.4-80.1 [facility] Vitamin D 25-Hydroxy 25.9 ng/mL [facility] Comment on above: Vitamin D 25(OH) Sta tus Range Deficiency <20 ng/mL (50nmol/L) Insufficiency 20 - 30 ng/mL (50 - 75 nmol/L) Sufficiency 30 - 100 ng/mL (75 - 250 nmol/L) Toxicity >100 ng/mL (>250 nmol/L) Platelets bldOrdered By: Yue Petit on 10-21-2022 Platelets (Bld) [#/Vol] 352 10*3/uL 150-450 [facility] Serum or plasma C reactive p rotein measurement (mass/volume)Ordered By: Edwardo Petit on 10-21-2022 CRP [Mass/Vol] mg/L 0.0-3.0 [facility] Comment on above: C-Reactive Protein ( CRP) provides useful information for thediagnosis, therapy and monitoring of inflammatory processesand associated diseases. For the evaluation of Relative Riskfor Cardiovascular Disease, a High Sensitivity CRP (HSCRP)should be ordered. Serum or plasma albumin linh urement (mass/volume)Ordered By: Edwardo Petit on 10-21-2022 Albumin [Mass/Vol] 3.6 g/dL 3.2-5.[address] [facility] Serum or plasma albumin/glob ulin mass ratioOrdered By: Edwardo Petit on 10-21-2022 Albumin/Globulin [Mass ratio] 0.9 {ratio} 0.9-2.4 [facility] Serum or plasma calcium linh urement (mass/volume)Ordered By: Edwardo Petit on 10-21-2022 Calcium [Mass/Vol] 9.4 mg/dL 8.5-10.[address] [facility] Serum or plasma cholesterol in HDL measurement (mass/volume)Ordered By: Edwardo Petit on 10-21-2022 Cholesterol in HDL [Mass/Vol] 93 mg/dL >40 [facility] Comment on above: The drugs N-Acetylcy steine and Metamizole may falsely depress this assay. Reference Range HDL <40 mg/dL Low HDL Cholesterol HDL >or= 60 mg/dL High HDL Cholesterol Serum or plasma cholesterol in VLDL measurement (mass/volume)Ordered By: Edwardo Petit on 10-21-2022 Cholesterol in VLDL [Mass/Vol] 11 mg/dL 5-40 [facility] Serum or plasma creatinine m easurement (mass/volume)Ordered By: Edwardo Petit on 10-21-2022 Creatinine [Mass/Vol] 0.69 mg/dL 0.55-1.02 [facility] Comment on above: The validity of the calculated GFR & GFRAA in patients over 70 years has not been determined. Clinical correlation is essential. Serum or plasma low density lipoprotein (LDL) cholesterol measurement (mass/volume)Ordered By: Edwardo Petit on 10-21-2022 Cholesterol in LDL [Mass/Vol] 124 mg/dL 0-130 [facility] Serum or plasma urea nitroge n measurement (mass/volume)Ordered By: Edwardo Petit on 10-21-2022 Urea nitrogen [Mass/Vol] 12 mg/dL 7-18 [facility] Thin prep Papanicolaou smear with manual screeningOrdered By: Edwardo Petit on 10-21-2022 Thin prep Papanicolaou smear with manual screening 18 U/L 15-37 [facility] Thin prep Papanicolaou smear with manual screening 5 5-15 [facility] Culture, urineOrdered By: Jeff Petit on 08-04-2022 Bacteria identified Cx Nom (U) Streptococcus agalactiae (B) [facility] Culture, urineOrdered By: Dr Frankie Petit on 06-23-2022 Bacteria identified Cx Nom (U) Positive [facility] No Panel InformationOrdered By: Dr. Juárez on 06-23-2022 Endomysial IgA Antibody Negative Negative [facility] Serum IgA measurement (units /volume)Ordered By: Dr. Juárez on 06-23-2022 IgA Qn (S) 223 mg/dL 64-422 [facility] Comment on above: Performed at: [facility] [place], [place] [id number] Director: Bryn Nieves PhD, Phone: [phone] Serum or plasma C reactive p rotein measurement (mass/volume)Ordered By: Dr. Juárez on 06-23-2022 CRP [Mass/Vol] mg/L 0.0-3.0 [facility] Comment on above: C-Reactive Protein ( CRP) provides useful information for thediagnosis, therapy and monitoring of inflammatory processesand associated diseases. For the evaluation of Relative Riskfor Cardiovascular Disease, a High Sensitivity CRP (HSCRP)should be ordered. Serum tissue transglutaminas e IgA antibody assay (units/volume)Ordered By: Dr. Juárez on 06-23-2022 tTG IgA Qn (S) <2 U/mL 0-3 [facility] Comment on above: Negative 0 - 3 Weak Positive 4 - 10 Positive >10 Tissue Transglutaminase (tTG) has been identified as the endomysial antigen. Studies have demonstr- ated that endomysial IgA antibodies have over 99% specificity for gluten sensitive enteropathy. Culture, urineOrdered By: Jeff Petit on 06-22-2022 Bacteria identified Cx Nom (U) Positive [facility] Absolute lymphocyte countOrd ered By: Dr. Petit on 04-20-2022 Lymphocytes Auto (Unsp spec) [#/Vol] 1.57 10*3/uL 0.83-4.51 [facility] Basophil percentageOrdered B y: Dr. Petit on 04-20-2022 Basophils/100 WBC (Bld) 0.6 % 0-1 [facility] Bilirubin [Mass/Vol] 0.60 mg/dL 0.20-1.00 [facility] Comment on above: For patients on eltr ombopag therapy, use of Dimension [place] TBIL is not recommended. Chloride [Moles/Vol] 96 mmol/L 98-107 [facility] Eosinophils/100 WBC (Bld) 4.5 % 0-5 [facility] Glucose [Mass/Vol] 112 mg/dL 74-[address] [facility] Comment on above: Fasting Glucose resu lt from 100 to 125 mg/dL suggests IMPAIRED HOMEOSTASIS per A.D.A. criteria. Neutrophils (Bld) [#/Vol] 4.6 10*3/uL 2.0-7.7 [facility] Neutrophils/100 WBC (Bld) 64.8 % 47-70 [facility] Potassium [Moles/Vol] 4.2 mmol/L 3.5-5.1 [facility] Protein [Mass/Vol] 7.1 g/dL 6.4-8.[address] [facility] Sodium [Moles/Vol] 135 mmol/L 136-[address] [facility] WBC (Bld) [#/Vol] 7.2 10*3/uL 4.4-11.[address] [facility] Blood erythrocytes count (nu mber/volume)Ordered By: Dr. Petit on 04-20-2022 RBC (Bld) [#/Vol] 4.48 10*6/uL 4.2-5.4 [facility] Blood hemoglobin measurement (mass/volume)Ordered By: Dr. Petit on 04-20-2022 Hemoglobin (Bld) [Mass/Vol] 13.4 g/dL 12.0-15.0 [facility] Blood lymphocytes/100 leukoc ytesOrdered By: Dr. Petit on 04-20-2022 Lymphocytes/100 WBC (Bld) 22.0 % 19-41 [facility] Blood monocytes/100 leukocyt esOrdered By: Dr. Petit on 04-20-2022 Monocytes/100 WBC (Bld) 7.8 % 0-10 [facility] Blood platelet mean volumeOr dered By: Dr. Petit on 04-20-2022 Platelet mean volume (Bld) [Entitic vol] 9.3 fL 6.2-12.0 [facility] Determination of erythrocyte mean corpuscular volume (MCV)Ordered By: Dr. Petit on 04-20-2022 MCV (RBC) [Entitic vol] 92.9 fL 81-99 [facility] Hematocrit Auto (Bld) [Volum e fraction]Ordered By: Dr. Petit on 04-20-2022 Hematocrit (Bld) [Volume fraction] 41.6 % 37-47 [facility] Laboratory - Chemistry and C hemistry - challengeOrdered By: Dr. Petit on 04-20-2022 ALP [Catalytic activity/Vol] 44 U/L 45-117 [facility] ALT [Catalytic activity/Vol] 18 U/L 13-56 [facility] CO2 [Moles/Vol] 31.0 mmol/L 21.0-32.0 [facility] Globulin (S) [Mass/Vol] 3.3 g/dL 2.2-4.2 [facility] Lipase [Catalytic activity/Vol] 122 U/L 73-393 [facility] Urea nitrogen/Creatinine [Mass ratio] 22.1 mg/mg 10-20 [facility] Laboratory - Hematology and Cell countsOrdered By: Dr. Petit on 04-20-2022 Erythrocyte distribution width (RBC) [Entitic vol] 43.4 fL 35.1-43.9 [facility] Erythrocyte distribution width (RBC) [Ratio] 12.8 % 11.6-14.6 [facility] Immature granulocytes/100 WBC (Bld) 0.300 % 0.0-0.9 [facility] Comment on above: IG% - Immature Granu locytes (promyelocytes, myelocytes and metamyelocytes) > 1% indicates that a LEFT SHIFT is Present. MCH (RBC) [Entitic mass] 29.9 pg 27.0-32.0 [facility] Nucleated RBC/100 WBC (Bld) [Ratio] 0 % 0-5 [facility] MCHC Auto (RBC) [Mass/Vol]Or dered By: Dr. Petit on 04-20-2022 MCHC (RBC) [Mass/Vol] 32.2 g/dL 32-36 [facility] No Panel InformationOrdered By: Dr. Petit on 04-20-2022 Estimated GFR (MDRD) Amer 108 mL/min >60 [facility] Comment on above: GFR Calc Estimated GFR (MDRD) Non-Af Amer 90 mL/min >60 [facility] Comment on above: Non- GFR Calc Platelets bldOrdered By: Dr. Petit on 04-20-2022 Platelets (Bld) [#/Vol] 369 10*3/uL 150-450 [facility] Serum or plasma albumin linh urement (mass/volume)Ordered By: Dr. Petit on 04-20-2022 Albumin [Mass/Vol] 3.8 g/dL 3.2-5.[address] [facility] Serum or plasma albumin/glob ulin mass ratioOrdered By: Dr. Petit on 04-20-2022 Albumin/Globulin [Mass ratio] 1.2 {ratio} 0.9-2.4 [facility] Serum or plasma calcium linh urement (mass/volume)Ordered By: Dr. Petit on 04-20-2022 Calcium [Mass/Vol] 9.7 mg/dL 8.5-10.[address] [facility] Serum or plasma creatinine m easurement (mass/volume)Ordered By: Dr. Petit on 04-20-2022 Creatinine [Mass/Vol] 0.68 mg/dL 0.55-1.02 [facility] Comment on above: The validity of the calculated GFR & GFRAA in patients over 70 years has not been determined. Clinical correlation is essential. Serum or plasma urea nitroge n measurement (mass/volume)Ordered By: Dr. Petit on 04-20-2022 Urea nitrogen [Mass/Vol] 15 mg/dL 7-18 [facility] Thin prep Papanicolaou smear with manual screeningOrdered By: Dr. Petit on 04-20-2022 Thin prep Papanicolaou smear with manual screening 17 U/L 15-37 [facility] Thin prep Papanicolaou smear with manual screening 8 5-15 [facility] Clostridium difficile detect ion by polymerase chain reactionOrdered By: Dr. Petit on 04-08-2022 C. difficile DNA XU+probe Ql (Unsp spec) [facility] No Panel InformationOrdered By: Dr. Petit on 04-08-2022 Miscellaneous Test See comment [facility] Comment on above: STOOL CULTURESALMONE LLA/SHIGELLA SCREEN FINAL REPORTRESULT 1 NO SALMONELLA OR SHIGELLLA RECOVEREDCAMPYLOBACTER CULTURE RESULT 1 NO CAMPYLOBACTER SPECIES ISOLATEDE COLI SHIGA TOXIN EIA NEGATIVE (REFERENCE INTERVAL= NEGATIVE) _ TESTING PERFORMED AT [facility]. ORIGINAL REPORT ON FILE IN LAB CONTAINS ADDITIONAL TEST SITE INFORMATION. ____ Culture, urineOrdered By: Dr Frankie Hodges on 03-04-2022 Bacteria identified Cx Nom (U) Enterococcus faecalis [facility] Absolute lymphocyte counton 10-15-2021 Lymphocytes Auto (Unsp spec) [#/Vol] 1.11 10*3/uL 0.83-4.51 [facility] Work Phone: Basophil percentageon 2021 Basophils/100 WBC (Bld) 0.5 % 0-1 [facility] Work Phone: Bilirubin [Mass/Vol] 0.50 mg/dL 0.20-1.00 [facility] Work Phone: Comment on above: For patients on eltr ombopag therapy, use of Dimension [place] TBIL is not recommended. Chloride [Moles/Vol] 101 mmol/L 98-107 [facility] Work Phone: Cholesterol [Mass/Vol] 199 mg/dL <200 [facility] Work Phone: Comment on above: <200 mg/dL Desirable 200-240 mg/dL Borderline >240 mg/dL High Risk Eosinophils/100 WBC (Bld) 5.0 % 0-5 [facility] Work Phone: Glucose [Mass/Vol] 92 mg/dL 74-[address] [facility] Work Phone: Neutrophils (Bld) [#/Vol] 3.8 10*3/uL 2.0-7.7 [facility] Work Phone: Neutrophils/100 WBC (Bld) 64.4 % 47-70 [facility] Work Phone: Potassium [Moles/Vol] 3.8 mmol/L 3.5-5.1 [facility] Work Phone: Protein [Mass/Vol] 7.8 g/dL 6.4-8.[address] [facility] Work Phone: Sodium [Moles/Vol] 135 mmol/L 136-[address] [facility] Work Phone: Triglyceride [Mass/Vol] 48 mg/dL <199 [facility] Work Phone: Comment on above: The drugs N-Acetylcy steine and Metamizole may falsely depress this assay.Serum Triglycerides Reference Interval Normal <150 mg/dL Borderline high 150 - 199 mg/dL High 200 - 499 mg/dL Very High > or = 500 mg/dL WBC (Bld) [#/Vol] 6.0 10*3/uL 4.4-11.[address] [facility] Work Phone: Blood erythrocytes count (nu mber/volume)on 10-15-2021 RBC (Bld) [#/Vol] 4.76 10*6/uL 4.2-5.4 [facility] Work Phone: Blood hemoglobin measurement (mass/volume)on 10-15-2021 Hemoglobin (Bld) [Mass/Vol] 14.2 g/dL 12.0-15.0 [facility] Work Phone: Blood lymphocytes/100 leukoc yteson 10-15-2021 Lymphocytes/100 WBC (Bld) 18.7 % 19-41 [facility] Work Phone: Blood monocytes/100 leukocyt eson 10-15-2021 Monocytes/100 WBC (Bld) 11.1 % 0-10 [facility] Work Phone: Blood platelet mean volumeon 10-15-2021 Platelet mean volume (Bld) [Entitic vol] 9.0 fL 6.2-12.0 [facility] Work Phone: Determination of erythrocyte mean corpuscular volume (MCV)on 10-15-2021 MCV (RBC) [Entitic vol] 91.6 fL 81-99 [facility] Work Phone: Hematocrit Auto (Bld) [Volum e fraction]on 10-15-2021 Hematocrit (Bld) [Volume fraction] 43.6 % 37-47 [facility] Work Phone: Laboratory - Chemistry and C hemistry - challengeon 10-15-2021 ALP [Catalytic activity/Vol] 60 U/L 45-117 [facility] Work Phone: ALT [Catalytic activity/Vol] 23 U/L 13-56 [facility] Work Phone: CO2 [Moles/Vol] 30.0 mmol/L 21.0-32.0 [facility] Work Phone: Globulin (S) [Mass/Vol] 4.3 g/dL 2.2-4.2 [facility] Work Phone: Magnesium [Mass/Vol] 2.3 mg/dL 1.6-2.6 [facility] Work Phone: Urea nitrogen/Creatinine [Mass ratio] 15.8 mg/mg 10-20 [facility] Work Phone: Laboratory - Hematology and Cell countson 10-15-2021 Erythrocyte distribution width (RBC) [Entitic vol] 42.3 fL 35.1-43.9 [facility] Work Phone: Erythrocyte distribution width (RBC) [Ratio] 12.6 % 11.6-14.6 [facility] Work Phone: Immature granulocytes/100 WBC (Bld) 0.300 % 0.0-0.9 [facility] Work Phone: Comment on above: IG% - Immature Granu locytes (promyelocytes, myelocytes and metamyelocytes) > 1% indicates that a LEFT SHIFT is Present. MCH (RBC) [Entitic mass] 29.8 pg 27.0-32.0 [facility] Work Phone: Nucleated RBC/100 WBC (Bld) [Ratio] 0 % 0-5 [facility] Work Phone: MCHC Auto (RBC) [Mass/Vol]on 10-15-2021 MCHC (RBC) [Mass/Vol] 32.6 g/dL 32-36 [facility] Work Phone: No Panel Informationon 10-15 Estimated GFR (MDRD) Amer 105 mL/min >60 [facility] Work Phone: Comment on above: GFR Calc Estimated GFR (MDRD) Non-Af Amer 87 mL/min >60 [facility] Work Phone: Comment on above: Non- GFR Calc Thyroid Stimulating Hormone (TSH) 1.39 uIU/mL 0.358-3.74 [facility] Work Phone: Vitamin D 25-Hydroxy 44.1 ng/mL [facility] Work Phone: Comment on above: Vitamin D 25(OH) Sta tus Range Deficiency <20 ng/mL (50nmol/L) Insufficiency 20 - 30 ng/mL (50 - 75 nmol/L) Sufficiency 30 - 100 ng/mL (75 - 250 nmol/L) Toxicity >100 ng/mL (>250 nmol/L) Platelets bldon 10-15-2021 Platelets (Bld) [#/Vol] 433 10*3/uL 150-450 [facility] Work Phone: Serum or plasma albumin linh urement (mass/volume)on 10-15-2021 Albumin [Mass/Vol] 3.5 g/dL 3.2-5.[address] [facility] Work Phone: Serum or plasma albumin/glob ulin mass ratioon 10-15-2021 Albumin/Globulin [Mass ratio] 0.8 {ratio} 0.9-2.4 [facility] Work Phone: Serum or plasma calcium linh urement (mass/volume)on 10-15-2021 Calcium [Mass/Vol] 9.0 mg/dL 8.5-10.[address] [facility] Work Phone: Serum or plasma cholesterol in HDL measurement (mass/volume)on 10-15-2021 Cholesterol in HDL [Mass/Vol] 99 mg/dL >40 [facility] Work Phone: Comment on above: The drugs N-Acetylcy steine and Metamizole may falsely depress this assay. Reference Range HDL <40 mg/dL Low HDL Cholesterol HDL >or= 60 mg/dL High HDL Cholesterol Serum or plasma cholesterol in VLDL measurement (mass/volume)on 10-15-2021 Cholesterol in VLDL [Mass/Vol] 10 mg/dL 5-40 [facility] Work Phone: Serum or plasma creatinine m easurement (mass/volume)on 10-15-2021 Creatinine [Mass/Vol] 0.70 mg/dL 0.55-1.02 [facility] Work Phone: Comment on above: The validity of the calculated GFR & GFRAA in patients over 70 years has not been determined. Clinical correlation is essential. Serum or plasma low density lipoprotein (LDL) cholesterol measurement (mass/volume)on 10-15-2021 Cholesterol in LDL [Mass/Vol] 90 mg/dL 0-130 [facility] Work Phone: Serum or plasma urea nitroge n measurement (mass/volume)on 10-15-2021 Urea nitrogen [Mass/Vol] 11 mg/dL 7-18 [facility] Work Phone: Thin prep Papanicolaou smear with manual screeningon 10-15-2021 Thin prep Papanicolaou smear with manual screening 23 U/L 15-37 [facility] Work Phone: Thin prep Papanicolaou smear with manual screening 4 5-15 [facility] Work Phone: Gram stain for investigation of transfusion reactionon 07-09-2021 Microscopic observation Gram stain Nom (Unsp spec) [facility] Work Phone: No Panel Informationon 07-09 Nasopharyngeal Culture [facility] Work Phone: Absolute lymphocyte counton 04-03-2021 Lymphocytes Auto (Unsp spec) [#/Vol] 1.38 10*3/uL 0.83-4.51 [facility] Work Phone: Basophil percentageon 2021 Basophils/100 WBC (Bld) 0.4 % 0-1 [facility] Work Phone: Bilirubin [Mass/Vol] 0.40 mg/dL 0.20-1.00 [facility] Work Phone: Comment on above: For patients on eltr ombopag therapy, use of Dimension [place] TBIL is not recommended. Chloride [Moles/Vol] 97 mmol/L 98-107 [facility] Work Phone: Eosinophils/100 WBC (Bld) 1.0 % 0-5 [facility] Work Phone: Glucose [Mass/Vol] 100 mg/dL 74-[address] [facility] Work Phone: Comment on above: Fasting Glucose resu lt from 100 to 125 mg/dL suggests IMPAIRED HOMEOSTASIS per A.D.A. criteria. Neutrophils (Bld) [#/Vol] 8.8 10*3/uL 2.0-7.7 [facility] Work Phone: Neutrophils/100 WBC (Bld) 78.6 % 47-70 [facility] Work Phone: Potassium [Moles/Vol] 4.2 mmol/L 3.5-5.1 [facility] Work Phone: Protein [Mass/Vol] 7.6 g/dL 6.4-8.[address] [facility] Work Phone: Sodium [Moles/Vol] 132 mmol/L 136-[address] [facility] Work Phone: WBC (Bld) [#/Vol] 11.1 10*3/uL 4.4-11.0 [facility] Work Phone: Blood erythrocytes count (nu mber/volume)on 04-03-2021 RBC (Bld) [#/Vol] 4.53 10*6/uL 4.2-5.4 [facility] Work Phone: Blood hemoglobin measurement (mass/volume)on 04-03-2021 Hemoglobin (Bld) [Mass/Vol] 13.8 g/dL 12.0-15.0 [facility] Work Phone: Blood lymphocytes/100 leukoc yteson 04-03-2021 Lymphocytes/100 WBC (Bld) 12.4 % 19-41 [facility] Work Phone: Blood monocytes/100 leukocyt eson 04-03-2021 Monocytes/100 WBC (Bld) 7.3 % 0-10 [facility] Work Phone: Blood platelet mean volumeon 04-03-2021 Platelet mean volume (Bld) [Entitic vol] 9.5 fL 6.2-12.0 [facility] Work Phone: Culture, urineon 04-03-2021 Bacteria identified Cx Nom (U) Streptococcus agalactiae (B) [facility] Work Phone: Determination of erythrocyte mean corpuscular volume (MCV)on 04-03-2021 MCV (RBC) [Entitic vol] 90.9 fL 81-99 [facility] Work Phone: Hematocrit Auto (Bld) [Volum e fraction]on 04-03-2021 Hematocrit (Bld) [Volume fraction] 41.2 % 37-47 [facility] Work Phone: Laboratory - Chemistry and C hemistry - challengeon 04-03-2021 ALP [Catalytic activity/Vol] 47 U/L 45-117 [facility] Work Phone: ALT [Catalytic activity/Vol] 18 U/L 13-56 [facility] Work Phone: CO2 [Moles/Vol] 30.0 mmol/L 21.0-32.0 [facility] Work Phone: Globulin (S) [Mass/Vol] 4.0 g/dL 2.2-4.2 [facility] Work Phone: Urea nitrogen/Creatinine [Mass ratio] 22.2 mg/mg 10-20 [facility] Work Phone: Laboratory - Hematology and Cell countson 04-03-2021 Erythrocyte distribution width (RBC) [Entitic vol] 42.5 fL 35.1-43.9 [facility] Work Phone: Erythrocyte distribution width (RBC) [Ratio] 12.7 % 11.6-14.6 [facility] Work Phone: Immature granulocytes/100 WBC (Bld) 0.300 % 0.0-0.9 [facility] Work Phone: Comment on above: IG% - Immature Granu locytes (promyelocytes, myelocytes and metamyelocytes) > 1% indicates that a LEFT SHIFT is Present. MCH (RBC) [Entitic mass] 30.5 pg 27.0-32.0 [facility] Work Phone: Nucleated RBC/100 WBC (Bld) [Ratio] 0 % 0-5 [facility] Work Phone: MCHC Auto (RBC) [Mass/Vol]on 04-03-2021 MCHC (RBC) [Mass/Vol] 33.5 g/dL 32-36 [facility] Work Phone: No Panel Informationon 04-03 Estimated GFR (MDRD) Amer 119 mL/min >60 [facility] Work Phone: Estimated GFR (MDRD) Non-Af Amer 98 mL/min >60 [facility] Work Phone: Platelets bldon 04-03-2021 Platelets (Bld) [#/Vol] 352 10*3/uL 150-450 [facility] Work Phone: Serum or plasma albumin linh urement (mass/volume)on 04-03-2021 Albumin [Mass/Vol] 3.6 g/dL 3.2-5.[address] [facility] Work Phone: Serum or plasma albumin/glob ulin mass ratioon 04-03-2021 Albumin/Globulin [Mass ratio] 0.9 {ratio} 0.9-2.4 [facility] Work Phone: Serum or plasma calcium linh urement (mass/volume)on 04-03-2021 Calcium [Mass/Vol] 9.3 mg/dL 8.5-10.[address] [facility] Work Phone: Serum or plasma creatinine m easurement (mass/volume)on 04-03-2021 Creatinine [Mass/Vol] 0.63 mg/dL 0.55-1.02 [facility] Work Phone: Comment on above: The validity of the calculated GFR & GFRAA in patients over 70 years has not been determined. Clinical correlation is essential. Serum or plasma urea nitroge n measurement (mass/volume)on 04-03-2021 Urea nitrogen [Mass/Vol] 14 mg/dL 7-18 [facility] Work Phone: Thin prep Papanicolaou smear with manual screeningon 04-03-2021 Thin prep Papanicolaou smear with manual screening 18 U/L 15-37 [facility] Work Phone: Thin prep Papanicolaou smear with manual screening 5 5-15 [facility] Work Phone: HISTORY PHYSICALon 0 HISTORY PHYSICAL HNO ID: [id number] Author: Javy Shipley Service: Gastroenterology Author Type: [...] Laterality Date - COLONOSCOP W/ OR W/O [facility] SPEC 09/02/99 Colonoscopy - COLONOSCOP W/ OR W/O [facility] SPEC 04/07/04 Colonoscopy - COLONOSCOP W/ OR W/O [facility] SPEC 05/29/09 - COLONOSCOP W/ OR W/O [facility] SPEC 06/06/2014 Colonoscopy - EGD W/O OR [...] 06, 2019 TIME: 12:59 PM PAGER: Normal [facility] NURSING PROGon 08-06-2019 NURSING PROG HNO ID: [id number] Author: Kiana Almazan) ROGELIO Noel Service: ? Author Type: Registered Nurse Type: Nursing Progress Note Filed: 08/06/2019 2:32 PM Note Text: Patient did not experience a fall prior to discharge. Patient did not experience a burn prior to discharge. Kiana Noel RN [facility] NURSING PROG HNO ID: [id number] Author: Kiana Noel RN Service: ? Author Type: Registered Nurse Type: Nursing Progress Note Filed: 08/06/2019 1:36 PM Note Text: Pt received in recovery. Denies pain or nausea. Very awake. Dr. Shipley at bedside and spoke with pt. Abd soft and non distended. Kiana Noel RN [facility] NURSING PROG HNO ID: [id number] Author: Keke Martinez RN Service: ? Author Type: Registered Nurse Type: Nursing Progress Note Filed: 08/06/2019 1:25 PM Note Text: Patient did not experience a fall within the Intraoperative area. Patient did not experience a burn within the Intraoperative area. Keke Martinez RN [facility] NURSING PROG HNO ID: [id number] Author: Kiana Noel RN Service: ? Author Type: Registered Nurse Type: Nursing Progress Note Filed: 08/06/2019 12:58 PM Note Text: [facility] PRE-OP NURSING HAND OFF NOTE SBAR Hand off given to Yumiko Boggs RN. Hand off was communicated verbally and at the patient's bedside and all questions were answered. FALLS/PILLAI Patient did not experience a fall within the Preoperative area. Patient did not experience a burn within the Preoperative area. Kiana Noel RN [facility] PT EDon 08-06-2019 PT ED HNO ID: [id number] Author: Kiana Noel RN Service: ? Author [...] Noel RN In Department: AMBULATORY SURGERY [facility] PT ED HNO ID: [id number] Author: Kiana (Rn) ROGELIO Noel Service: ? [...] Kiana Noel RN In Department: AMBULATORY SURGERY [facility] 03-19-2019 CNPN Telephone (ASWSTR) -------- ANTONIO DECKER ([id number]) 1945 F NFR Date Time Provider Department [...] Please send all open access questionnaires to [facility] Sched Pool #[id number] Shakira Nickerson Pss 03/19/2019 1:54 PM Signed [...] until the day before your colonoscopy. Designated Twine Winder on the Day of Your Exam A responsible family member or friend MUST come with you to your colonoscopy and REMAIN in the endoscopy area until you are discharged! You are NOT ALLOWED to drive, take a taxi or bus, or leave the Endoscopy Center ALONE. If you do not have a responsible tractor trailer driver (family member or friend) with you [...] carbonated beverages such as kourtney twyla or lemon-craig soda; Gatorade? or other sports drinks (not [...] calling after 5:00 PM, please call Nurse substation inspector at [phone]. [facility] [address] [place] [address] Index # [id number] Revised 04/2016 3 Colonoscopy Procedure Overview Please [...] If the nausea persists, please contact nurse business development professional at [phone]. You may experience skin irritation around the [...] performed your exam. 6 Revised 04/2016 ?Copyright 6086-3041 [facility]. All rights reserved. Revised 04/2016 Allergies As [...] malignant neoplasms, colon [Z12.11] Order(s):[] Order #: [id number] COLONOSCOPY SCRN NOT HIGH RISK [[id number]] Order #: [id number]: 1 FUTURE Prescriptions as of 03/19/2019 Sig: [...] until the day before your colonoscopy. Designated Twine Winder on the Day of Your Exam A responsible family member or friend MUST come with you to your colonoscopy and REMAIN in the endoscopy area until you are discharged! You are NOT ALLOWED to drive, take a taxi or bus, or leave the Endoscopy Center ALONE. If you do not have a responsible tractor trailer driver (family member or friend) with you [...] carbonated beverages such as kourtney twyla or lemon-craig soda; Gatorade? or other sports drinks (not [...] calling after 5:00 PM, please call Nurse substation inspector at [phone]. [facility] [address] [place] [address] Index # [id number] Revised 04/2016 3 Colonoscopy Procedure Overview Please [...] If the nausea persists, please contact nurse business development professional at [phone]. You may experience skin irritation around the [...] performed your exam. 6 Revised 04/2016 ?Copyright 2363-0442 [facility]. All rights reserved. Revised 04/2016 Prescriptions ordered this encounter Disp Refills Start End PEG 3350 240 GRAM-ELECTROLYTES 22.72* 4000* 0 03/23/2019 03/23/2019 Route: ORAL Sig: Take 4,000 mL by mouth one time only for 1 dose. Encounter Status:Closed by SHAKIRA HILL on 05/25/19 [facility] HOSPon 03-19-2019 HOSP Patient:Александр Decker MRN: [...] entered within the past 30 days [facility] Metabolic Panel, Comprehensi ve (52043)Ordered By: Brine Purifier on 02-12-2015 Albumin [Mass/Vol] 4.2 g/dL Normal 3.6-4.8 [facility]; [facility] Work Phone: Comment on above: PATIENT NOT FASTINGP ERFORMED BY: CB [facility] Wjerti5466 [facility] [id number] Information: [id number] Albumin/Globulin [Mass ratio] 1.4 {ratio} Normal 1.1-2.5 [facility]; [facility] Work Phone: Comment on above: PATIENT NOT FASTINGP ERFORMED BY: GONZALO LabCoroslyn PelaezByccws4229 [address] [facility] [id number] Information: [id number],[id number] ALP [Catalytic activity/Vol] 59 U/L Normal 39-117 [facility]; [facility] Work Phone: Comment on above: PATIENT NOT FASTINGP ERFORMED BY: GONZALO LabCoroslyn VillagomezSbpeqd4482 [facility] [id number] Information: [id number],[id number] ALT [Catalytic activity/Vol] 8 U/L Normal 0-32 [facility]; [facility] Work Phone: Comment on above: PATIENT NOT FASTINGP ERFORMED BY: GONZALO Pelaez6370 [facility] [id number] Information: [id number] AST [Catalytic activity/Vol] 16 U/L Normal 0-40 [facility]; [facility] Work Phone: Comment on above: PATIENT NOT FASTINGP ERFORMED BY: GONZALO Petit Wivolf0165 [facility] [id number] Information: 412463,[id number] Bilirubin [Mass/Vol] 0.4 mg/dL Normal 0.0-1.2 Comp rehensive Internal [facility]; [facility] Work Phone: Comment on above: PATIENT NOT FASTINGP ERFORMED BY: GONZALO [facility] Zbftep0143 [facility] [id number] Information: [id number],G37393 Calcium [Mass/Vol] 9.5 mg/dL Normal 8.7-10.3 [facility] Internal Medicine; [facility] Work Phone: Comment on above: PATIENT NOT FASTINGP ERFORMED BY: GONZALO [facility] Dqfbbb0410 [facility] [id number] Information: [id number] Chloride [Moles/Vol] 98 mmol/L Normal 97-108 Comp rehensive [facility]; [facility] Work Phone: Comment on above: PATIENT NOT FASTINGP ERFORMED BY: CB [facility] Acnfzg6402 [facility] [facility] [place] [id number] Information: 975911,N53113 CO2 [Moles/Vol] 27 mmol/L Normal 18-29 [facility] Internal [facility]; [facility] Work Phone: Comment on above: PATIENT NOT FASTINGP ERFORMED BY: CB [facility] Diurtq0691 [facility] [facility] [id number] Information: 105562,S27673 Creatinine [Mass/Vol] 0.82 mg/dL Normal 0.57-1.00 [facility]; [facility] Work Phone: Comment on above: PATIENT NOT FASTINGP ERFORMED BY: CB [facility] Vwvrmh0564 [facility] [id number] Information: 415138,N30293 GFR/1.73 sq M.predicted among blacks CKD-EPI (S/P/Bld) [Vol rate/Area] 85 mL/min/1.73 Normal [facility]; [facility] Work Phone: Comment on above: PATIENT NOT FASTINGP ERFORMED BY: CB [facility] Vmamzm2593 [facility] [id number] Information: 828294,[id number] GFR/1.73 sq M.predicted among non-blacks CKD-EPI (S/P/Bld) [Vol rate/Area] 74 mL/min/1.73 Normal [facility]; [facility] Work Phone: Comment on above: PATIENT NOT FASTINGP ERFORMED BY: CB [facility] Asjskq9995 [facility] [id number] Information: 077309,W01105 Globulin (S) [Mass/Vol] 2.9 g/dL Normal 1.5-4.5 [facility]; [facility] Work Phone: Comment on above: PATIENT NOT FASTINGP ERFORMED BY: CB [facility] Bayoyg9050 [facility] [id number] Information: 073951,[id number] Glucose [Mass/Vol] 94 mg/dL Normal 65-99 [facility] Internal [facility]; [facility] Work Phone: Comment on above: PATIENT NOT FASTINGP ERFORMED BY: GONZALO Pelaez6370 [facility] [id number] Information: 514016,R37210 Potassium [Moles/Vol] 4.7 mmol/L Normal 3.5-5.2 [facility]; [facility] Work Phone: Comment on above: PATIENT NOT FASTINGP ERFORMED BY: GONZALO LabCoroslyn VillagomezCqszyj6917 [facility] [id number] Information: 551445,G65684 Protein [Mass/Vol] 7.1 g/dL Normal 6.0-8.5 [facility]; [facility] Work Phone: Comment on above: PATIENT NOT FASTINGP ERFORMED BY: GONZALO Petit Nqanky2247 [facility] [id number] Information: 728886,G78282 Sodium [Moles/Vol] 137 mmol/L Normal 134-144 [facility]; [facility] Work Phone: Comment on above: PATIENT NOT FASTINGP ERFORMED BY: GONZALO [facility] Qocbym8719 [facility] [id number] Information: 546581,[id number] Urea nitrogen [Mass/Vol] 10 mg/dL Normal 8-27 [facility]; [facility] Work Phone: Comment on above: PATIENT NOT FASTINGP ERFORMED BY: GONZALO [facility] Joimyp0767 [facility] [id number] Information: [id number],E12731 Urea nitrogen/Creatinine [Mass ratio] 12 mg/mg Normal 11-26 [facility]; [facility] Work Phone: Comment on above: PATIENT NOT FASTINGP ERFORMED BY: GONZALO [facility] Ojiujg0963 [facility] [id number] Information: 863040,[id number] URINE RACHEL CULTURE-PHILIPP COL C OUNT (63683)Ordered By: Brine Purifier on 12-18-2014 Bacteria identified Cx Nom (U) Final report Normal [facility]; [facility] Work Phone: Comment on above: PATIENT NOT FASTINGP ERFORMED BY: Beats Music70 [facility]anCox NorthExaptiveUNC [facility] [id number] Information: SRC:[facility] [id number] Bacteria identified Cx Nom (U) MUG Normal [facility]; [facility] Work Phone: Comment on above: Mixed urogenital mey ra10,000-25,000 colony forming units per mL PATIENT NOT FASTINGP ERFORMED BY: GONZALO [employer]70 [address] ModeWalkUNC Health Wayne [id number] Information: SRC:[facility] [id number] Urinalysis, Office (08770)Or dered By: Terra Cazares on 12-18-2014 Bilirubin [...] [facility] Work Phone: Urinalysis, Office (38476)Or dered By: Terra Cazares on 11-20-2014 Bilirubin [...] Internal Medicine Work Phone: Vitamin D Hydroxy (44517)Ord ered By: Brine Purifier on 06-28-2014 25-hydroxyvitamin D [Mass/Vol] 37.9 ng/mL Normal 30.0-100.0 [facility]; [facility] Work Phone: Comment on above: Vitamin D deficiency has been defined by the [place] ofMedicine and an Endocrine Society practice guideline as alevel of serum 25-OH vitamin D less than 20 ng/mL (1,2).The Endocrine Society went on to further define vitamin Dinsufficiency as a level between 21 and 29 ng/mL (2).1. IOM ([place] of Medicine). 2010. Dietary reference intakes for calcium and D. [place]: The National Academies Press.2. Leland MF, Gerry NC, Esme ARRIAGA, et al. Evaluation, treatment, and prevention of vitamin D deficiency: an Endocrine Society clinical practice guideline. JCEM. 2010; 96(6):1911-30. PATIENT NOT FASTINGP ERFORMED BY: [facility]6370 [facility] [id number] Information: [id number] Calcium Serum (77353)Ordered By: Brine Purifier on 12-03-2013 Calcium [Mass/Vol] 9.6 mg/dL Normal 8.6-10.2 [facility] Internal [facility]; [facility] Work Phone: Comment on above: PATIENT NOT FASTINGP ERFORMED BY: [facility]6370 [facility] [id number] Information: [id number] CBC, PLATELETS & MANUAL DIFF (37908)Ordered By: Brine Purifier on 11-09-2013 Basophils (Bld) [#/Vol] 0.0 10*3/uL Normal 0.0-0.2 [facility]; [facility] Work Phone: Comment on above: PATIENT NOT FASTINGP ERFORMED BY: [facility]6370 [facility] [id number] Information: [id number] Basophils/100 WBC (Bld) 0 % Normal 0-3 [facility]; [facility] Work Phone: Comment on above: The percent (%) diff erential reference intervals for normal cell typeswill be removed from patient reports beginning November 19, 2013,consistent with CAP standards. PATIENT NOT FASTINGP ERFORMED BY: [facility]6370 [facility] [id number] Information: [id number] Eosinophils (Bld) [#/Vol] 0.1 10*3/uL Normal 0.0-0.4 [facility]; [facility] Work Phone: Comment on above: PATIENT NOT FASTINGP ERFORMED BY: [facility]6370 [facility] [id number] Information: [id number] Eosinophils/100 WBC (Bld) 2 % Normal 0-5 [facility]; [facility] Work Phone: Comment on above: The percent (%) diff erential reference intervals for normal cell typeswill be removed from patient reports beginning November 19, 2013,consistent with CAP standards. PATIENT NOT FASTINGP ERFORMED BY: [place] 5733570 [facility] [id number] Information: [id number] Erythrocyte distribution width (RBC) [Ratio] 13.4 % Normal 12.3-15.4 [facility]; [facility] Work Phone: Comment on above: PATIENT NOT FASTINGP ERFORMED BY: [place] 5733570 [facility] [id number] Information: [id number] Hematocrit (Bld) [Volume fraction] 41.7 % Normal 34.0-46.6 [facility]; [facility] Work Phone: Comment on above: PATIENT NOT FASTINGP ERFORMED BY: [facility]6370 [facility] [id number] Information: [id number] Hemoglobin (Bld) [Mass/Vol] 14.0 g/dL Normal 11.1-15.9 [facility]; [facility] Work Phone: Comment on above: PATIENT NOT FASTINGP ERFORMED BY: [facility]6370 [facility] [id number] Information: [id number] Immature granulocytes (Bld) [#/Vol] 0.0 10*3/uL Normal 0.0-0.1 [facility]; [facility] Work Phone: Comment on above: PATIENT NOT FASTINGP ERFORMED BY: [facility]6370 [facility] [id number] Information: [id number] Immature granulocytes/100 WBC (Bld) 0 % Normal 0-2 [facility]; [facility] Work Phone: Comment on above: The percent (%) diff erential reference intervals for normal cell typeswill be removed from patient reports beginning November 19, 2013,consistent with CAP standards. PATIENT NOT FASTINGP ERFORMED BY: [facility]6370 [facility] [id number] Information: [id number] Lymphocytes (Bld) [#/Vol] 1.0 10*3/uL Normal 0.7-3.1 [facility]; [facility] Work Phone: Comment on above: PATIENT NOT FASTINGP ERFORMED BY: [place] 5733570 [facility] [id number] Information: [id number] Lymphocytes/100 WBC (Bld) 19 % Normal 14-46 [facility]; [facility] Work Phone: Comment on above: The percent (%) diff erential reference intervals for normal cell typeswill be removed from patient reports beginning November 19, 2013,consistent with CAP standards. PATIENT NOT FASTINGP ERFORMED BY: [facility]6370 [facility] [id number] Information: [id number] MCH (RBC) [Entitic mass] 30.6 pg Normal 26.6-33.0 [facility]; [facility] Work Phone: Comment on above: PATIENT NOT FASTINGP ERFORMED BY: [facility]6370 [facility] [id number] Information: [id number] MCHC (RBC) [Mass/Vol] 33.6 g/dL Normal 31.5-35.7 [facility]; [facility] Work Phone: Comment on above: PATIENT NOT FASTINGP ERFORMED BY: [facility]6370 [facility] [id number] Information: [id number] MCV (RBC) [Entitic vol] 91 fL Normal 79-97 [facility]; [facility] Work Phone: Comment on above: PATIENT NOT FASTINGP ERFORMED BY: GONZALO Pelaez6370 [facility] [id number] Information: [id number] Monocytes (Bld) [#/Vol] 0.4 10*3/uL Normal 0.1-0.9 [facility]; [facility] Work Phone: Comment on above: PATIENT NOT FASTINGP ERFORMED BY: GONZALO Petit Luohxc3604 [facility] [id number] Information: [id number] Monocytes/100 WBC (Bld) 8 % Normal 4-12 [facility]; [facility] Work Phone: Comment on above: The percent (%) diff erential reference intervals for normal cell typeswill be removed from patient reports beginning November 19, 2013,consistent with CAP standards. PATIENT NOT FASTINGP ERFORMED BY: GONZALO Petit Octcuh2428 [facility] [id number] Information: [id number] Neutrophils (Bld) [#/Vol] 3.7 10*3/uL Normal 1.4-7.0 [facility]; [facility] Work Phone: Comment on above: PATIENT NOT FASTINGP ERFORMED BY: GONZALO Petit Bracxh6925 [facility] [id number] Information: [id number] Neutrophils/100 WBC (Bld) 71 % Normal 40-74 [facility]; [facility] Work Phone: Comment on above: The percent (%) diff erential reference intervals for normal cell typeswill be removed from patient reports beginning November 19, 2013,consistent with CAP standards. PATIENT NOT FASTINGP ERFORMED BY: GONZALO Petit Eioicb5577 [facility] [id number] Information: [id number] Platelets (Bld) [#/Vol] 352 10*3/uL Normal 150-379 [facility]; [facility] Work Phone: Comment on above: PATIENT NOT FASTINGP ERFORMED BY: GONZALO AriasCoroslyn PelaezOhwxbd9602 [facility] [facility] [place] [id number] Information: [id number] RBC (Bld) [#/Vol] 4.57 10*6/uL Normal 3.77-5.28 [facility] Internal [facility]; [facility] Work Phone: Comment on above: PATIENT NOT FASTINGP ERFORMED BY: GONZALO LabCoroslyn PelaezHvjcbn2382 [address] [facility] [place] [id number] Information: [id number] WBC (Bld) [#/Vol] 5.2 10*3/uL Normal 3.4-10.8 [facility]; [facility] Work Phone: Comment on above: PATIENT NOT FASTINGP ERFORMED BY: GONZALO Pelaez6370 [address] [facility] [id number] Information: [id number] MAGNESIUM (66619)Ordered By: Brine Purifier on 11-09-2013 Magnesium [Mass/Vol] 2.0 mg/dL Normal 1.6-2.6 [facility] Internal Medicine; [facility] Work Phone: Comment on above: PATIENT NOT FASTINGP ERFORMED BY: GONZALO LabCoroslyn VillagomezZkazte0927 [address] [facility] [id number] METABOLIC PANEL, COMPREHENSI VE (25678)Ordered By: Brine Purifier on 11-09-2013 Albumin [Mass/Vol] 4.5 g/dL Normal 3.6-4.8 [facility]; [facility] Work Phone: Comment on above: PATIENT NOT FASTINGP ERFORMED BY: GONZALO [facility] Shlacv8893 [facility] [facility] [place] [id number] Albumin/Globulin [Mass ratio] 1.6 {ratio} Normal 1.1-2.5 [facility]; [facility] Work Phone: Comment on above: PATIENT NOT FASTINGP ERFORMED BY: CB [facility] Ikachk3811 Duran RoadDublin [place] [id number] ALP [Catalytic activity/Vol] 51 U/L Normal 39-117 [facility]; [facility] Work Phone: Comment on above: PATIENT NOT FASTINGP ERFORMED BY: GONZALO Pelaez6370 [address] RoadDublin [place] [id number] ALT [Catalytic activity/Vol] 12 U/L Normal 0-32 [facility]; [facility] Work Phone: Comment on above: PATIENT NOT FASTINGP ERFORMED BY: GONZALO Villagomezlin6370 [address] RoadDublin [place] [id number] AST [Catalytic activity/Vol] 20 U/L Normal 0-40 [facility]; [facility] Work Phone: Comment on above: PATIENT NOT FASTINGP ERFORMED BY: GONZALO Pelaez6[address] RoadDublin [place] [id number] Bilirubin [Mass/Vol] 0.4 mg/dL Normal 0.0-1.2 Comp rehensive [facility]; [facility] Work Phone: Comment on above: PATIENT NOT FASTINGP ERFORMED BY: Marisabel Ervaqt3630 [address] RoadDublin [place] [id number] Calcium [Mass/Vol] 10.3 mg/dL Abnormal 8.6-10.2 [facility]; [facility] Work Phone: Comment on above: PATIENT NOT FASTINGP ERFORMED BY: LabAlbert Ljgfma2539 [address] RoadDublin [place] [id number] Chloride [Moles/Vol] 92 mmol/L Abnormal 97-108 Comp rehensive [facility]; [facility] Work Phone: Comment on above: PATIENT NOT FASTINGP ERFORMED BY: GONZALO LabAlbert Lqitey7[address] RoadDublin [place] [id number] CO2 [Moles/Vol] 28 mmol/L Normal 18-29 [facility]; [facility] Work Phone: Comment on above: PATIENT NOT FASTINGP ERFORMED BY: GONZALO [facility] Lftfjk6119 [address] RoadDublin [place] [id number] Creatinine [Mass/Vol] 0.78 mg/dL Normal 0.57-1.00 [facility]; [facility] Work Phone: Comment on above: PATIENT NOT FASTINGP ERFORMED BY: CB [facility] Rxgabf1129 [address] RoadDublin [place] [id number] GFR/1.73 sq M.predicted among blacks CKD-EPI (S/P/Bld) [Vol rate/Area] 92 mL/min/1.73 Normal [facility]; [facility] Work Phone: Comment on above: PATIENT NOT FASTINGP ERFORMED BY: CB [facility] Wybkwt1055 [address] RoadDublin [place] [id number] GFR/1.73 sq M.predicted among non-blacks CKD-EPI (S/P/Bld) [Vol rate/Area] 79 mL/min/1.73 Normal [facility]; [facility] Work Phone: Comment on above: PATIENT NOT FASTINGP ERFORMED BY: CB [facility] Ydfzsm[address] [facility] [place] [id number] Globulin (S) [Mass/Vol] 2.8 g/dL Normal 1.5-4.5 [facility]; [facility] Work Phone: Comment on above: PATIENT NOT FASTINGP ERFORMED BY: CB [facility] Kqrtri[address] [facility] [place] [id number] Glucose [Mass/Vol] 94 mg/dL Normal 65-99 [facility]; [facility] Work Phone: Comment on above: PATIENT NOT FASTINGP ERFORMED BY: CB [facility] Ifywbc[address] [facility] [place] [id number] Potassium [Moles/Vol] 4.5 mmol/L Normal 3.5-5.2 [facility]; [facility] Work Phone: Comment on above: PATIENT NOT FASTINGP ERFORMED BY: CB [facility] Xpvgvt[address] [facility] [place] [id number] Protein [Mass/Vol] 7.3 g/dL Normal 6.0-8.5 [facility]; [facility] Work Phone: Comment on above: PATIENT NOT FASTINGP ERFORMED BY: GONZALO [facility] Ihsllq9[address] RoadDublin [place] [id number] Sodium [Moles/Vol] 136 mmol/L Normal 134-144 [facility] firsthealthive [facility]; [facility] Work Phone: Comment on above: PATIENT NOT FASTINGP ERFORMED BY: CB [facility] Hrdimr1762 [address] RoadDublin [place] [id number] Urea nitrogen [Mass/Vol] 12 mg/dL Normal 8-27 [facility]; [facility] Work Phone: Comment on above: PATIENT NOT FASTINGP ERFORMED BY: CB [facility] Elnlgx9003 [address] RoadDublin [place] [id number] Urea nitrogen/Creatinine [Mass ratio] 15 mg/mg Normal 11-26 [facility]; [facility] Work Phone: Comment on above: PATIENT NOT FASTINGP ERFORMED BY: CB [facility] Zbklvg4165 [address] RoadDublin [place] [id number] TSH ([id number])Ordered By: Opal Perez on 11-09-2013 TSH Qn 1.050 {uIU/mL} Normal 0.450-4.500 [facility] Internal [facility]; [facility] Work Phone: Comment on above: PATIENT NOT FASTINGP ERFORMED BY: CB [facility] Pjaauf6465 [address] RoadDuin [place] [id number] Urinalysis, Office ([id number])Or dered By: Joaquina Lewis on 06-27-2013 Bilirubin [...] Internal Medicine Work Phone: Thin prep Pap ([id number])Ordered By: Brine Purifier on 05-09-2013 Microscopic observation Other stain Nom (Unsp spec) . Normal [facility]; [facility] Work Phone: Comment on above: Source.............C ervical;EndocervicalNo. of containers..01 CYTYC Thin Prep VialPATIENT NOT FASTINGPERFORMED BY: [employer] [address] [id number] Information: [id number] Pathology report final diagnosis Narrative SPRCS Normal [facility]; [facility] Work Phone: Comment on above: NEGATIVE FOR INTRAEP ITHELIAL LESION AND MALIGNANCY.CELLULAR CHANGES ASSOCIATED WITH ATROPHY ARE PRESENT.Satisfactory for evaluation. Endocervical component may not bedistinguished in cases of atrophy.V76.2 ; Screening for malignant neoplasm of the cervixTerlinda High Director Export (ASCP) Source.............C ervical;EndocervicalNo. of containers..01 CYTYC Thin Prep VialPATIENT NOT FASTINGPERFORMED BY: [facility] [place], [place] [address]eEventHighland Ridge Hospital [id number] Information: [id number] Thin prep Pap (38968) PAPSMR Normal [facility]; [facility] [...] CYTYC Thin Prep VialPATIENT NOT FASTINGPERFORMED BY: [employer] [id number] Information: [id number] CBC WITH MANUAL DIFF ([id number]) Ordered By: Brine Purifier on 07-21-2012 Basophils (Bld) [#/Vol] 0.0 10*3/uL Normal 0.0-0.2 [facility]; [facility] Work Phone: Comment on above: PATIENT NOT FASTINGP ERFORMED BY: NanomechCarrie Tingley HospitalFxzlvu7320 [facility] [id number] Information: SRC: URINE Basophils/100 WBC (Bld) 1 % Normal 0-3 [facility]; [facility] Work Phone: Comment on above: PATIENT NOT FASTINGP ERFORMED BY: [employer] Ebnowa0213 [facility] [id number] Information: SRC: URINE Eosinophils (Bld) [#/Vol] 0.4 10*3/uL Normal 0.0-0.4 [facility]; [facility] Work Phone: Comment on above: PATIENT NOT FASTINGP ERFORMED BY: [employer] Eepkos0411 [facility] [id number] Information: SRC: URINE Eosinophils/100 WBC (Bld) 8 % Abnormal 0-7 [facility]; [facility] Work Phone: Comment on above: PATIENT NOT FASTINGP ERFORMED BY: GONZALO Villagomezlin6370 [facility] [id number] Information: SRC: URINE Erythrocyte distribution width (RBC) [Ratio] 12.7 % Normal 12.3-15.4 [facility]; [facility] Work Phone: Comment on above: PATIENT NOT FASTINGP ERFORMED BY: GONZALO Villagomez[address] [id number] Information: SRC: URINE Hematocrit (Bld) [Volume fraction] 41.0 % Normal 34.0-46.6 [facility]; [facility] Work Phone: Comment on above: PATIENT NOT FASTINGP ERFORMED BY: GONZALO Villagomezlin6370 [facility] [id number] Information: SRC: URINE Hemoglobin (Bld) [Mass/Vol] 13.6 g/dL Normal 11.1-15.9 [facility]; [facility] Work Phone: Comment on above: PATIENT NOT FASTINGP ERFORMED BY: GONZALO Petit Sdswkj2928 [facility] [id number] Information: SRC: URINE Immature granulocytes (Bld) [#/Vol] 0.0 10*3/uL Normal 0.0-0.1 [facility]; [facility] Work Phone: Comment on above: PATIENT NOT FASTINGP ERFORMED BY: GONZALO Petit Rwanmg2052 [facility] [id number] Information: SRC: URINE Immature granulocytes/100 WBC (Bld) 0 % Normal 0-2 [facility]; [facility] Work Phone: Comment on above: PATIENT NOT FASTINGP ERFORMED BY: GONZALO Villagomezlin6370 [facility] [id number] Information: SRC: URINE Lymphocytes (Bld) [#/Vol] 1.5 10*3/uL Normal 0.7-4.5 [facility]; [facility] Work Phone: Comment on above: PATIENT NOT FASTINGP ERFORMED BY: GONZALO Yanez [facility] [id number] Information: SRC: URINE Lymphocytes/100 WBC (Bld) 27 % Normal 14-46 [facility]; [facility] Work Phone: Comment on above: PATIENT NOT FASTINGP ERFORMED BY: GONZALO Grimes70 [facility] [id number] Information: SRC: URINE MCH (RBC) [Entitic mass] 30.0 pg Normal 26.6-33.0 [facility]; [facility] Work Phone: Comment on above: PATIENT NOT FASTINGP ERFORMED BY: GONZALO Villagomezlin6370 [facility] [id number] Information: SRC: URINE MCHC (RBC) [Mass/Vol] 33.2 g/dL Normal 31.5-35.7 [facility]; [facility] Work Phone: Comment on above: PATIENT NOT FASTINGP ERFORMED BY: GONZALO Villagomezlin6370 [facility] [id number] Information: SRC: URINE MCV (RBC) [Entitic vol] 91 fL Normal 79-97 [facility]; [facility] Work Phone: Comment on above: PATIENT NOT FASTINGP ERFORMED BY: GONZALO Villagomezlin6370 [facility] [id number] Information: SRC: URINE Monocytes (Bld) [#/Vol] 0.5 10*3/uL Normal 0.1-1.0 [facility]; [facility] Work Phone: Comment on above: PATIENT NOT FASTINGP ERFORMED BY: GONZALO Villagomezlin6370 [facility] [id number] Information: SRC: URINE Monocytes/100 WBC (Bld) 10 % Normal 4-13 [facility]; [facility] Work Phone: Comment on above: PATIENT NOT FASTINGP ERFORMED BY: CB Love Villagomezlin6370 [facility] [id number] Information: SRC: URINE Neutrophils (Bld) [#/Vol] 3.1 10*3/uL Normal 1.8-7.8 [facility]; [facility] Work Phone: Comment on above: PATIENT NOT FASTINGP ERFORMED BY: GONZALO Villagomezlin6370 [facility] [id number] Information: SRC: URINE Neutrophils/100 WBC (Bld) 54 % Normal 40-74 [facility]; [facility] Work Phone: Comment on above: PATIENT NOT FASTINGP ERFORMED BY: GONZALO Villagomezlin6370 [facility] [id number] Information: SRC: URINE Platelets (Bld) [#/Vol] 345 10*3/uL Normal 140-415 [facility]; [facility] Work Phone: Comment on above: PATIENT NOT FASTINGP ERFORMED BY: GONZALO Villagomezlin6370 [facility] [id number] Information: SRC: URINE RBC (Bld) [#/Vol] 4.53 10*6/uL Normal 3.77-5.28 [facility] Internal [facility]; [facility] Work Phone: Comment on above: PATIENT NOT FASTINGP ERFORMED BY: GONZALO Villagomezlin6370 [facility] [id number] Information: SRC: URINE WBC (Bld) [#/Vol] 5.6 10*3/uL Normal 4.0-10.5 [facility] Internal [facility]; [facility] Work Phone: Comment on above: PATIENT NOT FASTINGP ERFORMED BY: GONZALO Villagomezlin6370 [facility] [id number] Information: SRC: URINE METABOLIC PANEL, COMPREHENSI VE (21990)Ordered By: Brine Purifier on 07-21-2012 Albumin [Mass/Vol] 4.6 g/dL Normal 3.6-4.8 [facility] Internal [facility]; [facility] Work Phone: Comment on above: PATIENT NOT FASTINGP ERFORMED BY: GONZALO [facility] Unuzcm1915 [address] RoadDublin [place] [id number] Albumin/Globulin [Mass ratio] 1.6 {ratio} Normal 1.1-2.5 [facility]; [facility] Work Phone: Comment on above: PATIENT NOT FASTINGP ERFORMED BY: CB [facility] Iazuxt6084 [address] RoadDublin [place] [id number] ALP [Catalytic activity/Vol] 72 U/L Normal 25-165 [facility]; [facility] Work Phone: Comment on above: PATIENT NOT FASTINGP ERFORMED BY: CB [facility] Ghrssb4470 [address] RoadDublin [place] [id number] ALT [Catalytic activity/Vol] 17 U/L Normal 0-32 [facility]; [facility] Work Phone: Comment on above: PATIENT NOT FASTINGP ERFORMED BY: CB [facility] Xahoei2767 [address] RoadDublin [place] [id number] AST [Catalytic activity/Vol] 22 U/L Normal 0-40 [facility]; [facility] Work Phone: Comment on above: PATIENT NOT FASTINGP ERFORMED BY: GONZALO [facility] Qzfdpa7835 [address] RoadDublin [place] [id number] Bilirubin [Mass/Vol] 0.4 mg/dL Normal 0.0-1.2 Comp rehensive [facility]; [facility] Work Phone: Comment on above: PATIENT NOT FASTINGP ERFORMED BY: CB [facility] Bvnxbp0046 [address] RoadDublin [place] [id number] Calcium [Mass/Vol] 9.6 mg/dL Normal 8.6-10.2 Compre [facility] Internal [facility]; [facility] Work Phone: Comment on above: PATIENT NOT FASTINGP ERFORMED BY: CB [facility] Dwjemq4513 [address] RoadDublin [place] [id number] Chloride [Moles/Vol] 94 mmol/L Abnormal 97-108 Comp rehensive [facility]; [facility] Work Phone: Comment on above: PATIENT NOT FASTINGP ERFORMED BY: CB [facility] Juuecd7511 [address] RoadDublin [place] [id number] CO2 [Moles/Vol] 26 mmol/L Normal 20-32 [facility] Internal Medicine; [facility] Work Phone: Comment on above: PATIENT NOT FASTINGP ERFORMED BY: CB [facility] Yhoymh6138 [address] RoadDublin [place] [id number] Creatinine [Mass/Vol] 0.65 mg/dL Normal 0.57-1.00 [facility]; [facility] Work Phone: Comment on above: PATIENT NOT FASTINGP ERFORMED BY: CB [facility] Rkqfcq2679 [address] RoadDublin [place] [id number] GFR/1.73 sq M.predicted among blacks CKD-EPI (S/P/Bld) [Vol rate/Area] 108 mL/min/1.73 Normal [facility]; [facility] Work Phone: Comment on above: PATIENT NOT FASTINGP ERFORMED BY: CB [facility] Zejdaw6850 [address] RoadDublin [place] [id number] GFR/1.73 sq M.predicted among non-blacks CKD-EPI (S/P/Bld) [Vol rate/Area] 93 mL/min/1.73 Normal [facility]; [facility] Work Phone: Comment on above: PATIENT NOT FASTINGP ERFORMED BY: CB [facility] Kdlsyj9992 [address] RoadDublin [place] [id number] Globulin (S) [Mass/Vol] 2.8 g/dL Normal 1.5-4.5 [facility]; [facility] Work Phone: Comment on above: PATIENT NOT FASTINGP ERFORMED BY: CB [facility] Edzrcr0548 [address] RoadDublin [place] [id number] Glucose [Mass/Vol] 103 mg/dL Abnormal 65-99 [facility] Internal Medicine; [facility] Work Phone: Comment on above: PATIENT NOT FASTINGP ERFORMED BY: CB [facility] Zczngs2622 [address] RoadDublin [place] [id number] Potassium [Moles/Vol] 4.1 mmol/L Normal 3.5-5.2 [facility]; [facility] Work Phone: Comment on above: PATIENT NOT FASTINGP ERFORMED BY: GONZALO Pelaez6[address] RoadDublin [place] [id number] Protein [Mass/Vol] 7.4 g/dL Normal 6.0-8.5 [facility] Internal Medicine; [facility] Work Phone: Comment on above: PATIENT NOT FASTINGP ERFORMED BY: GONZALO LabAbel VillagomezBpgtfm8478 [address] RoadDublin [place] [id number] Sodium [Moles/Vol] 136 mmol/L Normal 134-144 [facility] Internal Medicine; [facility] Work Phone: Comment on above: PATIENT NOT FASTINGP ERFORMED BY: GONZALO Marisabel Comfpu2707 [address] RoadDublin [place] [id number] Urea nitrogen [Mass/Vol] 14 mg/dL Normal 8-27 [facility]; [facility] Work Phone: Comment on above: PATIENT NOT FASTINGP ERFORMED BY: GONZALO Love Villagomezlin6370 [address] RoadDublin [place] [id number] Urea nitrogen/Creatinine [Mass ratio] 22 mg/mg Normal 11-26 [facility]; [facility] Work Phone: Comment on above: PATIENT NOT FASTINGP ERFORMED BY: GONZALO LabAlbert Jguqik7233 [address] RoadDublin [place] [id number] PARATHORMONE ([id number])Ordered By: Brine Purifier on 07-21-2012 Parathyrin.intact [Mass/Vol] 23 pg/mL Normal 15-65 [facility]; [facility] Work Phone: Comment on above: PATIENT NOT FASTINGP ERFORMED BY: GONZALO LabAbel VillagomezTeojhy4545 [address] RoadDublin [place] [id number] PHOSPHORUS ([id number])Ordered By : Brine Purifier on 07-21-2012 Phosphate [Mass/Vol] 4.3 mg/dL Normal 2.5-4.5 [facility]; [facility] Work Phone: Comment on above: PATIENT NOT FASTINGP ERFORMED BY: CB [facility] Wkdhnw8253 [address] RoadDublin [place] [id number] TSH (43663)Ordered By: Opal cooney Poll Clerk on 07-21-2012 TSH Qn 1.370 {uIU/mL} Normal 0.450-4.500 [facility] Internal Medicine; [facility] Work Phone: Comment on above: PATIENT NOT FASTINGP ERFORMED BY: CB [facility] Zahkmk5309 [address] RoadDublin [place] [id number] Vitamin D Hydroxy (96248)Ord ered By: Brine Purifier on 07-21-2012 25-hydroxyvitamin D [Mass/Vol] 37.6 ng/mL Normal 30.0-100.0 [facility]; [facility] Work Phone: Comment on above: Vitamin D deficiency has been defined by the [place] of[facility] and an Endocrine Society practice guideline as alevel of serum 25-OH vitamin D less than 20 ng/mL (1,2).The Endocrine Society went on to further define vitamin Dinsufficiency as a level between 21 and 29 ng/mL (2).1. IOM ([place] of Medicine). 2010. Dietary reference intakes for calcium and D. [place]: The National Academies Press.2. Leland MF, Gerry KAPOOR, Esme ARRIAGA, et al. Evaluation, treatment, and prevention of vitamin D deficiency: an Endocrine Society clinical practice guideline. JCEM. 2010; 96(7):1911-30. PATIENT NOT FASTINGP ERFORMED BY: CB [facility] Mkagin5976 [address] RoadDublin [place] [id number] Ferritin (53157)Ordered By: Brine Purifier on 02-25-2012 Ferritin [Mass/Vol] 39 ng/mL Normal 13-150 Compr ehensive Internal Medicine; [facility] Work Phone: Comment on above: PATIENT NOT FASTINGP ERFORMED BY: CB [facility] Pynmvo7859 [address] RoadDublin [place] [id number] Folic Acid Serum (66890)Orde red By: Brine Purifier on 02-25-2012 Folate [Mass/Vol] 12.6 ng/mL Normal Compreh ensive Internal Medicine; [facility] Work Phone: Comment on above: A serum folate ekta ntration of less than 3.1 ng/mL isconsidered to represent clinical deficiency. PATIENT NOT FASTINGP ERFORMED BY: CB [facility] Pgbjic8116 [address] RoadDublin [place] [id number] Iron Binding Capacity (TIBC) (64118)Ordered By: Brine Purifier on 02-25-2012 Iron [Mass/Vol] 95 ug/dL Normal 35-155 Comprehen sive Internal Medicine; [facility] Work Phone: Comment on above: PATIENT NOT FASTINGP ERFORMED BY: CB [facility] Aifxkt9269 [address] RoadDublin [place] [id number] Information: [id number] Iron binding capacity [Mass/Vol] 320 ug/dL Normal 250-450 Comprehensiv e Internal Medicine; [facility] Work Phone: Comment on above: PATIENT NOT FASTINGP ERFORMED BY: CB [facility] Zdcwlr3147 [address] RoadDublin [place] [id number] Information: [id number] Iron binding capacity.unsaturated [Mass/Vol] 225 ug/dL Normal 150-375 [facility]; [facility] Work Phone: Comment on above: PATIENT NOT FASTINGP ERFORMED BY: CB [facility] Fgrnlb8527 [address] RoadDublin [place] [id number] Information: [id number] Iron saturation [Mass fraction] 30 % Normal 15-55 [facility]; [facility] Work Phone: Comment on above: PATIENT NOT FASTINGP ERFORMED BY: CB [facility] Cstpri8718 [address] RoadDublin [place] [id number] Information: [id number] Vitamin B-12 (cyanocobalamin ) (54820)Ordered By: Brine Purifier on 02-25-2012 Cobalamin (Vitamin B12) [Mass/Vol] 572 pg/mL Normal 211-946 [facility]; [facility] Work Phone: Comment on above: PATIENT NOT FASTINGP ERFORMED BY: [facility] Raoaje5180 [facility] [id number] Urinalysis, Office ([id number])on 09-10-2008 Bilirubin Ql (U) Negative Normal Comprehe [...] Bacteria identified Cx Nom (U) Enterococcus faecalis [facility] Work Phone: Gram stain for investigation of transfusion reaction Microscopic observation Gram stain Nom (Unsp spec) [facility] Work Phone: No Panel Information Nasopharyngeal Culture [facility] Work Phone: Vital Signs Date Time Vital Sign Value Performing Clinician Facility 10-17-2024 13:23-0400 Body height 165.[address] Aicha Blackwood DO Work Phone: [facility] 10-17-2024 13:23-0400 Body mass index (BMI) [Ratio] 22.8 kg/m2 Dr. Aicha Blackwood DO Work Phone: [facility] 10-17-2024 13:23-0400 Body temperature 98.3 [degF] Dr. Aicha Blackwood DO Work Phone: [facility] 10-17-2024 13:23-0400 Body weight 62.[address] Aicha Blackwood DO Work Phone: [facility] 10-17-2024 13:23-0400 Diastolic blood pressure 80 mm[Hg] Dr. Aicha Blackwood DO Work Phone: [facility] 10-17-2024 13:23-0400 Heart rate 70 /min Dr. Aicha Blackwood DO Work Phone: [facility] 10-17-2024 13:23-0400 Systolic blood pressure 122 mm[Hg] Dr. Aicha Blackwood DO Work Phone: [facility] 06-06-2024 15:18-0400 Body height 165.[address] Aicha Blackwood DO Work Phone: [facility] 05-29-2024 11:37-0400 Body height 165.[address] Aicha Blackwood DO Work Phone: [facility] 05-29-2024 11:37-0400 Body weight 64.[address] Aicha Blackwood DO Work Phone: [facility] 03-15-2024 13:13-0500 Body height 165.[address] Aicha Blackwood DO Work Phone: [facility] 03-15-2024 13:13-0500 Body mass index (BMI) [Ratio] 24 kg/m2 Dr. Aicha Blackwood DO Work Phone: [facility] 03-15-2024 13:13-0500 Body weight 65.[address] Aicha Blackwood DO Work Phone: [facility] 03-15-2024 13:13-0500 Diastolic blood pressure 78 mm[Hg] Dr. Aicha Fast DO Work Phone: [facility] 03-15-2024 13:13-0500 Heart rate 74 /min Dr. Holcomb Fast DO Work Phone: [facility] 03-15-2024 13:13-0500 Respiratory rate 18 /min Dr. Holcomb Fast DO Work Phone: [facility] 03-15-2024 13:13-0500 SaO2% (BldA) [Mass fraction] 97 % Dr. Holcomb Fast DO Work Phone: [facility] 03-15-2024 13:13-0500 Systolic blood pressure 120 mm[Hg] Dr. Aicha Blackwood DO Work Phone: [facility] 01-05-2023 08:30-0400 Body height 165.1 cm Joaquina Lewis [facility]; [facility] Work Phone: 01-05-2023 08:30-0400 Body mass index (BMI) [Ratio] 24.46 kg/m2 Joaquina Lewis [facility]; [facility] Work Phone: 01-05-2023 08:30-0400 Body surface area Derived from formula 1.74 m2 Joaquina Lewis [facility]; [facility] Work Phone: 01-05-2023 08:30-0400 Body temperature 97.2 [degF] Joaquina Lewis [facility]; [facility] Work Phone: Comment on above: Method: Thermal Scan 01-05-2023 08:30-0400 Body weight 66.68 kg Joaquina Lewis [facility]; [facility] Work Phone: 01-05-2023 08:30-0400 Diastolic blood pressure 72 mm[Hg] Joaquina Lewis [facility]; [facility] Work Phone: Comment on above: Patient Position: Sitting; Cuff Location : Left Arm; Cuff Size: Standard 01-05-2023 08:30-0400 Heart rate 74 /min Joaquina Lewis [facility] Internal Medicine; [facility] Work Phone: Comment on above: Pattern: Regular 01-05-2023 08:30-0400 Respiratory rate 16 /min Joaquina Lewis [facility] Medicine; [facility] Work Phone: Comment on above: Pattern: Unlabored 01-05-2023 08:30-0400 SaO2% (BldA) [Mass fraction] 99 % Joaquina Lewis [facility] Medicine; [facility] Work Phone: Comment on above: Room air 01-05-2023 08:30-0400 Systolic blood pressure 118 mm[Hg] Joaquina Lewis [facility] Medicine; [facility] Work Phone: Comment on above: Patient Position: Sitting; Cuff Location : Left Arm; Cuff Size: Standard 12-24-2022 08:40-0400 Body height 165.1 cm Joaquina Lewis [facility]; [facility] Work Phone: 12-24-2022 08:40-0400 Body mass index (BMI) [Ratio] 24.46 kg/m2 Joaquina Lewis [facility]; [facility] Work Phone: 12-24-2022 08:40-0400 Body surface area Derived from formula 1.74 m2 Joaquina Lewis [facility]; [facility] Work Phone: 12-24-2022 08:40-0400 Body temperature 96.9 [degF] Joaquina Lewis [facility]; [facility] Work Phone: Comment on above: Method: Thermal Scan 12-24-2022 08:40-0400 Body weight 66.68 kg Joaquina Lewis [facility]; [facility] Work Phone: 12-24-2022 08:40-0400 Diastolic blood pressure 72 mm[Hg] Joaquina Lewis [facility]; [facility] Work Phone: Comment on above: Patient Position: Sitting; Cuff Location : Left Arm; Cuff Size: Standard 10-20-2023 08:40-0400 Heart rate 82 /min [facility]; [facility] Work Phone: Comment on above: Pattern: Regular 12-24-2022 08:40-0400 Respiratory rate 16 /min [facility]; [facility] Work Phone: Comment on above: Pattern: Unlabored 12-24-2022 08:40-0400 SaO2% (BldA) [Mass fraction] 99 % Joaquina [facility]; [facility] Work Phone: Comment on above: Room air 12-24-2022 08:40-0400 Systolic blood pressure 118 mm[Hg] [facility]; [facility] Work Phone: Comment on above: Patient Position: Sitting; Cuff Location : Left Arm; Cuff Size: Standard 11-24-2022 14:41-0400 Body temperature 97.5 [degF] Dr. Edwardo Petit Work Phone: [facility] 11-24-2022 14:41-0400 Diastolic blood pressure 51 mm[Hg] Dr. Edwardo Petit Work Phone: [facility] 11-24-2022 14:41-0400 Heart rate 72 /min Dr. Edwardo Petit Work Phone: [facility] 11-24-2022 14:41-0400 Respiratory rate 16 /min Dr. Edwardo Petit Work Phone: [facility] 11-24-2022 14:41-0400 SaO2% (BldA) [Mass fraction] 96 % Dr. Edwardo Petit Work Phone: [facility] 11-24-2022 14:41-0400 Systolic blood pressure 109 mm[Hg] Dr. Edwardo Petit Work Phone: [facility] 11-24-2022 14:05-0400 Body height 165.[address] Edwardo Petit Work Phone: [facility] 11-20-2021 11:45-0400 Body temperature 97.3 [degF] Dr. Edwardo Petit Work Phone: [facility] Work Phone: 11-20-2021 11:45-0400 Diastolic blood pressure 59 mm[Hg] Dr. Edwardo Petit Work Phone: [facility] Work Phone: 11-20-2021 11:45-0400 Heart rate 61 /min Dr. Edwardo Petit Work Phone: [facility] Work Phone: 11-20-2021 11:45-0400 Respiratory rate 16 /min Dr. Edwardo Petti Work Phone: [facility] Work Phone: 11-20-2021 11:45-0400 SaO2% (BldA) [Mass fraction] 98 % Dr. Edwardo Petit Work Phone: [facility] Work Phone: 11-20-2021 11:45-0400 Systolic blood pressure 118 mm[Hg] Dr. Edwardo Petit Work Phone: [facility] Work Phone: 11-20-2021 10:57-0400 Body height 165.[address] Edwardo Petit Work Phone: [facility] Work Phone: 11-20-2021 10:57-0400 Body mass index (BMI) [Ratio] 22.9 kg/m2 Dr. Edwardo Petit Work Phone: [facility] Work Phone: 11-20-2021 10:57-0400 Body weight 62.[address] Edwardo Petit Work Phone: [facility] Work Phone: 02-14-2015 11:18-0500 Body height 165.1 cm Tiffanie Bhagat [facility] Internal Medicine; [facility] Work Phone: 02-14-2015 11:18-0500 Body mass index (BMI) [Ratio] 22.46 kg/m2 Tiffanie Malavebreeisabella [facility]; [facility] Work Phone: 02-14-2015 11:18-0500 Body surface area Derived from formula 1.67 m2 Tiffanie Malavecherrie [place] [facility]; [facility] Work Phone: 02-14-2015 11:18-0500 Body temperature 98.4 [degF] Tiffanie Malavecherrie [facility] Internal Medicine; [facility] Work Phone: Comment on above: Method: Temporal 02-14-2015 11:18-0500 Body weight 61.24 kg Tiffanie Malavebreeisabella [facility]; [facility] Work Phone: 02-14-2015 11:18-0500 Diastolic blood pressure 70 mm[Hg] Tiffanie Leola [facility] Internal Medicine; [facility] Work Phone: Comment on above: Patient Position: Sitting; Cuff Location : Left Arm; Cuff Size: Standard 02-14-2015 11:18-0500 Heart rate 84 /min Tiffanie Malavecherrie [facility] Internal Medicine; [facility] Work Phone: Comment on above: Pattern: Regular 02-14-2015 11:18-0500 Respiratory rate 16 /min Tiffanie Malavecherrie [facility] Internal Medicine; [facility] Work Phone: Comment on above: Pattern: Unlabored 02-14-2015 11:18-0500 SaO2% (BldA) [Mass fraction] 16 % Tiffanie Malavecherrie [facility] Internal Medicine; [facility] Work Phone: Comment on above: Room air 02-14-2015 11:18-0500 Systolic blood pressure 110 mm[Hg] Tiffanie Leola [facility] Internal Medicine; [facility] Work [...] 09:08-0400 Body temperature 98.5 [degF] Tiffanie Malavecherrie [facility] Internal Medicine; [facility] Work [...] 09:08-0400 Heart rate 72 /min Tiffanie Leola [facility] Internal Medicine; [facility] Work Phone: Comment on above: Pattern: Regular 12-25-2014 09:08-0400 Respiratory rate 16 /min Tiffanie Malavecherrie [facility]; [facility] Work Phone: Comment on above: Pattern: Unlabored 12-25-2014 09:08-0400 SaO2% (BldA) [Mass fraction] 97 % Tiffanie Leola [facility] Medicine; [facility] Work Phone: Comment on above: Room air 12-25-2014 09:08-0400 Systolic blood pressure 100 mm[Hg] Tiffanie Leola [facility] Internal Medicine; [facility] Work [...] 10:08-0400 Body temperature 98.6 [degF] Tiffanie Malavecherrie [facility]; [facility] Work Phone: Comment on above: Method: Temporal 12-18-2014 10:08-0400 Body weight 61.24 kg Tiffanie Malavecherrie [facility]; [facility] Work Phone: 12-18-2014 10:08-0400 Diastolic blood pressure 64 mm[Hg] Tiffanie Leola [facility]; [facility] Work Phone: Comment on above: Patient Position: Sitting; Cuff Location : Left Arm; Cuff Size: Standard 12-18-2014 10:08-0400 Heart rate 80 /min Tiffanie Malavecherrie [facility]; [facility] Work Phone: Comment on above: Pattern: Regular 12-18-2014 10:08-0400 Respiratory rate 16 /min Tiffanie Malavecherrie [facility]; [facility] Work Phone: Comment on above: Pattern: Unlabored 12-18-2014 10:08-0400 SaO2% (BldA) [Mass fraction] 97 % Tiffanie Malavecherrie [facility]; [facility] Work Phone: Comment on above: Room air 12-18-2014 10:08-0400 Systolic blood pressure 100 mm[Hg] Tiffanie Malavecherrie [facility]; [facility] Work Phone: Comment on above: Patient Position: Sitting; Cuff Location : Left Arm; Cuff Size: Standard 11-20-2014 14:39-0400 Body height 165.1 cm Adrianna Roberts LPN [facility]; [facility] Work Phone: 11-20-2014 14:39-0400 Body mass index (BMI) [Ratio] 23.3 kg/m2 Adrianna Slarb IRRIGATION SPECIALIST [facility]; [facility] Work Phone: 11-20-2014 14:39-0400 Body surface area Derived from formula 1.7 m2 Adrianna Slarb IRRIGATION SPECIALIST [facility]; [facility] Work Phone: 11-20-2014 14:39-0400 Body temperature 97.5 [degF] Adrianna Slarb IRRIGATION SPECIALIST [facility]; [facility] Work Phone: 11-20-2014 14:39-0400 Body weight 63.5 kg Adrianna Genesisrb IRRIGATION SPECIALIST [facility]; [facility] Work Phone: 11-20-2014 14:39-0400 Diastolic blood pressure 74 mm[Hg] Adrianna Slarb IRRIGATION SPECIALIST [facility]; [facility] Work Phone: Comment on above: Patient Position: Sitting; Cuff Location : Left Arm; Cuff Size: Standard 11-20-2014 14:39-0400 Heart rate 79 /min Adrianna Slarb IRRIGATION SPECIALIST [facility]; [facility] Work Phone: Comment on above: Pattern: Regular 11-20-2014 14:39-0400 Respiratory rate 16 /min Adrianna Genesisrb IRRIGATION SPECIALIST [facility]; [facility] Work Phone: Comment on above: Pattern: Unlabored 11-20-2014 14:39-0400 SaO2% (BldA) [Mass fraction] 95 % Adrianna Slarb IRRIGATION SPECIALIST [facility]; [facility] Work Phone: Comment on above: Room air 11-20-2014 14:39-0400 Systolic blood pressure 122 mm[Hg] Adrianna Slarb IRRIGATION SPECIALIST [facility]; [facility] Work Phone: Comment on above: Patient Position: Sitting; Cuff Location : Left Arm; Cuff Size: Standard 11-04-2014 08:51-0400 Body height 165.1 cm Lizzy Timmons [facility]; [facility] Work Phone: 11-04-2014 08:51-0400 Body mass index (BMI) [Ratio] 23.3 kg/m2 [facility]; [facility] Work Phone: 11-04-2014 08:51-0400 Body surface area Derived from formula 1.7 m2 [facility]; [facility] Work Phone: 11-04-2014 08:51-0400 Body temperature 97.9 [degF] [facility]; [facility] Work Phone: 11-04-2014 08:51-0400 Body weight 63.5 kg [facility]; [facility] Work Phone: 11-04-2014 08:51-0400 Diastolic blood pressure 72 mm[Hg] [facility]; [facility] Work Phone: Comment on above: Patient Position: Sitting; Cuff Location : Left Arm; Cuff Size: Standard 11-04-2014 08:51-0400 Heart rate 58 /min [facility]; [facility] Work Phone: Comment on above: Pattern: Regular 11-04-2014 08:51-0400 SaO2% (BldA) [Mass fraction] 98 % [facility]; [facility] Work Phone: Comment on above: Room air 11-04-2014 08:51-0400 Systolic blood pressure 118 mm[Hg] [facility]; [facility] Work Phone: Comment on above: Patient Position: Sitting; Cuff Location : Left Arm; Cuff Size: Standard 11-01-2014 09:54-0400 Body height 165.1 cm Adrianna Slarb IRRIGATION SPECIALIST [facility]; [facility] Work Phone: 11-01-2014 09:54-0400 Body mass index (BMI) [Ratio] 23.46 kg/m2 Adrianna Slarb IRRIGATION SPECIALIST [facility]; [facility] Work Phone: 11-01-2014 09:54-0400 Body surface area Derived from formula 1.71 m2 Adrianna Slarb IRRIGATION SPECIALIST [facility]; [facility] Work Phone: 11-01-2014 09:54-0400 Body temperature 98.1 [degF] Adrianna Roberts IRRIGATION SPECIALIST [facility]; [facility] Work Phone: 11-01-2014 09:54-0400 Body weight 63.96 kg Adrianna Roberts LPN [facility]; [facility] Work Phone: 11-01-2014 09:54-0400 Diastolic blood pressure 62 mm[Hg] Adrianna Roberts IRRIGATION SPECIALIST [facility]; [facility] Work [...] (BldA) [Mass fraction] 98 % Adrianna Roberts IRRIGATION SPECIALIST [facility]; [facility] Work Phone: Comment on above: Room air 11-01-2014 09:54-0400 Systolic blood pressure 98 mm[Hg] Adrianna Roberts IRRIGATION SPECIALIST [facility]; [facility] Work Phone: Comment on above: Patient Position: Sitting; Cuff Location : Left Arm; Cuff Size: Standard 09-04-2014 11:58-0400 Body height 165.1 cm Tiffanie Bhagat [facility] Internal Medicine; [facility] Work Phone: 09-04-2014 11:58-0400 Body mass index (BMI) [Ratio] 23.46 kg/m2 Tiffanie Bhagat [facility] Internal Medicine; [facility] Work Phone: 09-04-2014 11:58-0400 Body surface area Derived from formula 1.71 m2 Tiffanie Leola [facility]; [facility] Work Phone: 09-04-2014 11:58-0400 Body temperature 98 [degF] Tiffanie Malavebreeisabella [facility] Internal Medicine; [facility] Work [...] 09-04-2014 11:58-0400 Heart rate 72 /min Tiffanie Loela [facility]; [facility] Work Phone: Comment on above: Pattern: Regular 09-04-2014 11:58-0400 Respiratory rate 16 /min Tiffanie Leola [facility]; [facility] Work Phone: Comment on above: Pattern: Unlabored 09-04-2014 11:58-0400 Systolic blood pressure 102 mm[Hg] Tiffanie Malavecherrie [facility]; [facility] Work [...] Derived from formula 1.69 m2 Tiffanie Bhagat [facility]; [facility] Work Phone: 07-31-2014 09:27-0400 Body temperature 98.1 [degF] Tiffanie Bhagat [facility]; [facility] Work Phone: Comment on above: Method: Oral 07-31-2014 09:270400 Body weight 63.05 kg Tiffanie Malavecherrie [place] [facility]; [facility] Work Phone: 07-31-2014 09:27-0400 Diastolic blood pressure 64 mm[Hg] Tiffanie Malavecherrie [facility]; [facility] Work [...] Systolic blood pressure 90 mm[Hg] Tiffanie Leola [facility]; [facility] Work [...] Derived from formula 1.68 m2 Tiffanie Leola [facility]; [facility] Work Phone: 06-28-2014 10:17-0400 Body temperature 97.7 [degF] Tiffanie Leola [facility]; [facility] Work Phone: Comment on above: Method: Oral 06-28-2014 10:170400 Body weight 62.14 kg Tiffanie Leola [facility]; [facility] Work Phone: 06-28-2014 10:17-0400 Diastolic blood pressure 60 mm[Hg] Itffanie Leola [facility]; [facility] Work Phone: Comment on above: Patient Position: Sitting; Cuff Location : Left Arm; Cuff Size: Standard 06-28-2014 10:17-0400 Heart rate 96 /min Tiffanie Leola [facility]; [facility] Work Phone: Comment on above: Pattern: Regular 06-28-2014 10:17-0400 Respiratory rate 16 /min Tiffanie Leola [facility]; [facility] Work Phone: Comment on above: Pattern: Unlabored 06-28-2014 10:17-0400 Systolic blood pressure 96 mm[Hg] Tiffanie Leola [facility]; [facility] Work Phone: Comment on above: Patient Position: Sitting; Cuff Location : Left Arm; Cuff Size: Standard 05-17-2014 11:27-0400 Body height 165.1 cm Tiffanie Bhagat [facility]; [facility] Work Phone: 05-17-2014 11:27-0400 Body mass index (BMI) [Ratio] 22.8 kg/m2 Tiffanie Leola [facility]; [facility] Work Phone: 05-17-2014 11:27-0400 Body surface area Derived from formula 1.68 m2 Tiffanie Bhagat [facility]; [facility] Work Phone: 05-17-2014 11:27-0400 Body temperature 97.3 [degF] Tiffanie Bhagat [facility]; [facility] Work Phone: 05-17-2014 11:27-0400 Body weight 62.14 kg Tiffanie Leola [facility]; [facility] Work Phone: 05-17-2014 11:27-0400 Diastolic blood pressure 56 mm[Hg] Tiffanie Bhagat [facility]; [facility] Work [...] (BldA) [Mass fraction] 97 % Terraanni Cazares [facility]; [facility] Work Phone: Comment on above: Room air 01-22-2014 08:17-0500 Systolic blood pressure 102 mm[Hg] Terra Cazares [facility]; [facility] Work [...] Derived from formula 1.7 m2 Tiffanie Bhagat [facility]; [facility] Work Phone: 11-09-2013 10:09-0400 Body temperature 97.9 [degF] Tiffanie Bhagat [facility]; [facility] Work Phone: 11-09-2013 10:09-0400 Body weight 63.5 kg Tiffanie [facility]; [facility] Work Phone: 11-09-2013 10:09-0400 Diastolic blood pressure 72 mm[Hg] Tiffanie Bhagat [facility]; [facility] Work Phone: Comment on above: Patient Position: Sitting; Cuff Location : Left Arm; Cuff Size: Standard 11-09-2013 10:09-0400 Heart rate 78 /min Tiffanie Bhagat [facility]; [facility] Work Phone: Comment on above: Pattern: Regular 11-09-2013 10:09-0400 Respiratory rate 16 /min Tiffanie Bhagat [facility]; [facility] Work Phone: Comment on above: Pattern: Unlabored 11-09-2013 10:09-0400 Systolic blood pressure 122 mm[Hg] Tiffanie Leola [facility]; [facility] Work Phone: Comment on above: Patient Position: Sitting; Cuff Location : Left Arm; Cuff Size: Standard 10-03-2013 09:08-0400 Body height 165.1 cm Tiffanie Le[place] [facility]; [facility] Work Phone: 10-03-2013 09:08-0400 Body mass index (BMI) [Ratio] 22.96 kg/m2 Tiffanie Leola [facility]; [facility] Work Phone: 10-03-2013 09:08-0400 Body surface area Derived from formula 1.69 m2 Tiffanie Bhagat [facility]; [facility] Work Phone: 10-03-2013 09:08-0400 Body temperature 97.9 [degF] Tiffanie Leola [facility]; [facility] Work Phone: 10-03-2013 09:08-0400 Body weight 62.6 kg Tiffanie Leola [facility]; [facility] Work Phone: 10-03-2013 09:08-0400 Diastolic blood pressure 68 mm[Hg] Tiffanie Leola [facility]; [facility] Work Phone: Comment on above: Patient Position: Sitting; Cuff Location : Left Arm; Cuff Size: Standard 10-03-2013 09:08-0400 Heart rate 70 /min Tiffanie Bhagat [facility]; [facility] Work Phone: Comment on above: Pattern: Regular 10-03-2013 09:08-0400 Respiratory rate 16 /min Tiffanie Bhagat [facility]; [facility] Work Phone: Comment on above: Pattern: Unlabored 10-03-2013 09:08-0400 Systolic blood pressure 104 mm[Hg] Tiffanie Bhagat [facility]; [facility] Work [...] index (BMI) [Ratio] 22.96 kg/m2 Tiffanie Malavecherrie [facility]; [facility] Work Phone: 05-09-2013 09:41-0500 Body surface area Derived from formula 1.69 m2 Tiffanie Leola [facility]; [facility] Work Phone: 05-09-2013 09:41-0500 Body temperature 98.4 [degF] Tiffanie Leola [facility]; [facility] Work Phone: 05-09-2013 09:41-0500 Body weight 62.6 kg Tiffanie Malavecherrie [facility]; [facility] Work Phone: 05-09-2013 09:41-0500 Diastolic blood pressure 74 mm[Hg] Tiffanie Leola [facility]; [facility] Work Phone: Comment on above: Patient Position: Sitting; Cuff Location : Left Arm; Cuff Size: Standard 05-09-2013 09:41-0500 Heart rate 72 /min Tiffanie Leola [facility]; [facility] Work Phone: Comment on above: Pattern: Regular 05-09-2013 09:41-0500 Respiratory rate 16 /min Tiffanie Leola [facility]; [facility] Work Phone: Comment on above: Pattern: Unlabored 05-09-2013 09:41-0500 Systolic blood pressure 100 mm[Hg] Tiffanie Malavecherrie [facility]; [facility] Work Phone: Comment on above: Patient Position: Sitting; Cuff Location : Left Arm; Cuff Size: Standard 02-06-2013 08:33-0500 Body height 165.1 cm Tiffanie Leola [facility]; [facility] Work Phone: 02-06-2013 08:33-0500 Body mass index (BMI) [Ratio] 22.96 kg/m2 Tiffanie Bhagat [facility]; [facility] Work Phone: 02-06-2013 08:33-0500 Body surface area Derived from formula 1.69 m2 Tiffanie Leola [facility]; [facility] Work Phone: 02-06-2013 08:33-0500 Body temperature 97.8 [degF] Tiffanie Malavecherrie [facility]; [facility] Work Phone: 02-06-2013 08:33-0500 Body weight 62.6 kg Tiffanie Malavecherrie [facility]; [facility] Work Phone: 02-06-2013 08:33-0500 Diastolic blood pressure 60 mm[Hg] Tiffanie Malavecherrie [facility]; [facility] Work Phone: Comment on above: Patient Position: Sitting; Cuff Location : Left Arm; Cuff Size: Standard 02-06-2013 08:33-0500 Heart rate 72 /min Tiffanie Malavecherrie [facility]; [facility] Work Phone: Comment on above: Pattern: Regular 02-06-2013 08:33-0500 Respiratory rate 16 /min Tiffanie Malavecherrie [facility]; [facility] Work Phone: Comment on above: Pattern: Unlabored 02-06-2013 08:33-0500 Systolic blood pressure 92 mm[Hg] Tiffanie Malavecherrie [facility]; [facility] Work [...] Phone: 01-02-2013 13:58-0400 Body weight 62.6 kg Piper Cisneros RN [facility]; [...] Diastolic blood pressure 62 mm[Hg] Tiffanie Leola [facility]; [facility] Work Phone: Comment on above: Patient Position: Sitting; Cuff Location : Left Arm; Cuff Size: Large 12-22-2012 11:11-0400 Heart rate 62 /min Tiffanie Leola [facility]; [facility] Work Phone: Comment on above: Pattern: Regular 12-22-2012 11:11-0400 Respiratory rate 16 /min Tiffanie Leola [facility]; [facility] Work Phone: Comment on above: Pattern: Unlabored 12-22-2012 11:11-0400 Systolic blood pressure 110 mm[Hg] Tiffanie Leola [facility]; [facility] Work [...] Derived from formula 1.67 m2 Tiffanie Bhagat [facility]; [facility] Work [...] Systolic blood pressure 120 mm[Hg] Tiffanie Malavecherrie [facility]; [facility] Work Phone: Comment on above: Patient Position: Sitting; Cuff Location : Left Arm; Cuff Size: Standard 08-02-2012 14:13-0400 Body height 165.1 cm Tiffanie Leola [place] [facility]; [facility] Work Phone: 08-02-2012 14:13-0400 Body mass index (BMI) [Ratio] 22.46 kg/m2 Tiffanie eLola [facility]; [facility] Work Phone: 08-02-2012 14:13-0400 Body surface area Derived from formula 1.67 m2 Tiffanie Bhagat [facility]; [facility] Work Phone: 08-02-2012 14:13-0400 Body temperature 97.8 [degF] Tiffanie Leola [facility]; [facility] Work Phone: 08-02-2012 14:13-0400 Body weight 61.24 kg Tiffanie Malavecherrie [facility]; [facility] Work Phone: 08-02-2012 14:13-0400 Diastolic blood pressure 72 mm[Hg] Tiffanie Leola [facility]; [facility] Work Phone: Comment on above: Patient Position: Sitting; Cuff Location : Left Arm; Cuff Size: Standard 08-02-2012 14:130400 Heart rate 68 /min Tiffanie Leola [facility]; [facility] Work Phone: Comment on above: Pattern: Regular 08-02-2012 14:13-0400 Respiratory rate 16 /min Tiffanie Bhagat [facility]; [facility] Work Phone: Comment on above: Pattern: Unlabored 08-02-2012 14:13-0400 Systolic blood pressure 104 mm[Hg] Tiffanie Bahgat [facility]; [facility] Work Phone: Comment on above: Patient Position: Sitting; Cuff Location : Left Arm; Cuff Size: Standard 07-21-2012 12:05-0400 Body height 165.1 cm Tiffanie Leola [facility]; [facility] Work Phone: 07-21-2012 12:05-0400 Body mass index (BMI) [Ratio] 22.46 kg/m2 Tiffanie Leola [facility]; [facility] Work Phone: 07-21-2012 12:05-0400 Body surface area Derived from formula 1.67 m2 Tiffanie Leola [facility]; [facility] Work Phone: 07-21-2012 12:05-0400 Body temperature 97.6 [degF] Tiffanie Leola [facility]; [facility] Work Phone: 07-21-2012 12:05-0400 Body weight 61.24 kg Tiffanie Leola [facility]; [facility] Work Phone: 07-21-2012 12:05-0400 Diastolic blood pressure 64 mm[Hg] Tiffanie Leola [facility]; [facility] Work Phone: Comment on above: Patient Position: Sitting; Cuff Location : Left Arm; Cuff Size: Standard 07-21-2012 12:05-0400 Heart rate 68 /min Tiffanie Bhagat [facility]; [facility] Work Phone: Comment on above: Pattern: Regular 07-21-2012 12:05-0400 Respiratory rate 16 /min Tiffanie Leola [facility]; [facility] Work Phone: Comment on above: Pattern: Unlabored 07-21-2012 12:05-0400 Systolic blood pressure 104 mm[Hg] Tiffanie Bhagat [facility]; [facility] Work Phone: Comment on above: Patient Position: Sitting; Cuff Location : Left Arm; Cuff Size: Standard 03-28-2012 08:34-0500 Body height 165.1 cm Tiffanie Bhagat [facility]; [facility] Work Phone: 03-28-2012 08:34-0500 Body mass index (BMI) [Ratio] 21.97 kg/m2 Tiffanie Bhagat [facility]; [facility] Work Phone: 03-28-2012 08:34-0500 Body surface area Derived from formula 1.66 m2 Tiffanie Malavebreeisabella [facility]; [facility] Work Phone: 03-28-2012 08:34-0500 Body temperature 96.8 [degF] Tiffanie Bhagat [facility]; [facility] Work Phone: 03-28-2012 08:34-0500 Body weight 59.88 kg Tiffanie Malavebreeisabella [facility]; [facility] Work Phone: 03-28-2012 08:34-0500 Diastolic blood pressure 62 mm[Hg] Tiffanie Malavecherrie [facility]; [facility] Work Phone: Comment on above: Patient Position: Sitting; Cuff Location : Left Arm; Cuff Size: Large 03-28-2012 08:34-0500 Heart rate 72 /min Tiffanie Malavecherrie [facility]; [facility] Work Phone: Comment on above: Pattern: Regular 03-28-2012 08:34-0500 Respiratory rate 16 /min Tiffanie Bhagat [facility]; [facility] Work Phone: Comment on above: Pattern: Unlabored 03-28-2012 08:34-0500 Systolic blood pressure 98 mm[Hg] Tiffanie Mathurisabella [facility]; [facility] Work Phone: Comment on above: Patient Position: Sitting; Cuff Location : Left Arm; Cuff Size: Large 02-25-2012 13:42-0500 Body height 164.47 cm Terra Cazares [facility]; [facility] Work Phone: 02-25-2012 13:42-0500 Body mass index (BMI) [Ratio] 21.8 kg/m2 Terra Cazares [facility]; [facility] Work [...] 11:08-0400 Body height 164.47 cm Haven Cheung IRRIGATION SPECIALIST [facility]; [facility] Work Phone: 11-22-2011 11:08-0400 Body mass index (BMI) [Ratio] 21.8 kg/m2 Haven Cheung IRRIGATION SPECIALIST [facility]; [facility] Work Phone: 11-22-2011 11:08-0400 Body surface area Derived from formula 1.64 m2 Haven Cheung NARCISA [facility]; [facility] Work Phone: 11-22-2011 11:08-0400 Body temperature 98.7 [degF] Haven Cheung IRRIGATION SPECIALIST [facility]; [facility] Work [...] 15:53-0400 Body height 164.47 cm Tiffanie Bhagat [facility]; [facility] Work Phone: 09-20-2011 15:53-0400 Body mass index (BMI) [Ratio] 21.8 kg/m2 Tiffanie Bhagat [facility]; [facility] Work Phone: 09-20-2011 15:53-0400 Body surface area Derived from formula 1.64 m2 Tiffanie Bhagat [facility]; [facility] Work Phone: 09-20-2011 15:53-0400 Body temperature 97.8 [degF] Tiffanie Bhagat [facility]; [facility] Work Phone: 09-20-2011 15:53-0400 Body weight 58.97 kg Tiffanie Bhagat [facility]; [facility] Work Phone: 09-20-2011 15:53-0400 Diastolic blood pressure 66 mm[Hg] Tiffanie Bhagat [facility]; [facility] Work [...] Systolic blood pressure 110 mm[Hg] Tiffanie Bhagat [facility]; [facility] Work [...] 08-11-2011 08:10-0400 Body weight 61.24 kg Haven Cheung NARCISA [facility]; [...] index (BMI) [Ratio] 22.46 kg/m2 Haven Cheung IRRIGATION SPECIALIST [facility]; [facility] Work [...] Diastolic blood pressure 68 mm[Hg] Haven Cheung IRRIGATION SPECIALIST [facility]; [facility] Work Phone: Comment on above: Patient Position: Sitting; Cuff Location : Left Arm; Cuff Size: Standard 07-21-2011 09:11-0400 Heart rate 78 /min Haven Cheung IRRIGATION SPECIALIST [facility]; [facility] Work Phone: Comment on above: Pattern: Regular 07-21-2011 09:11-0400 Respiratory rate 16 /min Haven Cheung IRRIGATION SPECIALIST [facility]; [facility] Work [...] index (BMI) [Ratio] 22.63 kg/m2 Haven Cheung IRRIGATION SPECIALIST [facility]; [facility] Work Phone: 06-28-2011 09:24-0400 Body surface area Derived from formula 1.68 m2 Haven Cheung NARCISA [facility]; [facility] Work Phone: 06-28-2011 09:24-0400 Body temperature 98 [degF] Haven Cheung IRRIGATION SPECIALIST [facility]; [facility] Work [...] Systolic blood pressure 118 mm[Hg] Haven Cheung IRRIGATION SPECIALIST [facility]; [facility] Work [...] 13:23-0500 Body height 165.1 cm Tiffanie Bhagat [facility]; [facility] Work [...] 13:23-0500 Body weight 61.69 kg Tiffanie Bhagat [facility]; [facility] Work Phone: 03-29-2011 13:23-0500 Diastolic blood pressure 64 mm[Hg] Tiffanie Bhagat [facility]; [facility] Work [...] 09:59-0500 Body height 165.1 cm Ivana Rebolledo [facility]; [facility] Work Phone: 03-03-2011 09:59-0500 Body mass index (BMI) [Ratio] 22.13 kg/m2 Ivana Rebolledo [facility]; [facility] Work Phone: 03-03-2011 09:59-0500 Body surface area Derived from formula 1.66 m2 Ivana Rebolledo [facility]; [facility] Work Phone: 03-03-2011 09:59-0500 Body temperature 98.3 [degF] Ivana Rebolledo [facility]; [facility] Work Phone: Comment on above: Method: Oral 03-03-2011 09:59-0500 Body weight 60.33 kg Ivana Rebolledo [facility]; [facility] Work Phone: 03-03-2011 09:59-0500 Diastolic blood pressure 62 mm[Hg] Ivana Rebolledo [facility]; [facility] Work Phone: Comment on above: Patient Position: Supine; Cuff Location: Left Arm; Cuff Size: Standard 03-03-2011 09:59-0500 Heart rate 79 /min Ivana Rebolledo [facility]; [facility] Work Phone: Comment on above: Pattern: Regular 03-03-2011 09:59-0500 Respiratory rate 16 /min Ivana Rebolledo [facility]; [facility] Work [...] index (BMI) [Ratio] 23.3 kg/m2 Lisette Hluszti IRRIGATION SPECIALIST [facility]; [facility] Work Phone: 12-22-2010 10:11-0400 Body surface area Derived from formula 1.7 m2 Lisetet Guan LPN [facility]; [facility] Work Phone: 12-22-2010 10:11-0400 Body weight 63.5 kg Lisettewilliam Dongalin BREWSTER [facility]; [facility] Work Phone: 12-22-2010 10:11-0400 Heart rate 66 /min Lisettewilliam Camzti NARCISA [facility]; [facility] Work Phone: Comment on above: Pattern: Regular 12-22-2010 10:11-0400 Respiratory rate 16 /min Lisettewilliam Camzti IRRIGATION SPECIALIST [facility]; [facility] Work Phone: Comment on above: Pattern: Unlabored 08-26-2010 08:39-0400 Body height 165.1 cm Tiffanie Bhagat [facility]; [facility] Work Phone: 08-26-2010 08:39-0400 Body mass index (BMI) [Ratio] 23.3 kg/m2 Tiffanie Bhagat [facility]; [facility] Work Phone: 08-26-2010 08:39-0400 Body surface area Derived from formula 1.7 m2 Tiffanie Bhagat [facility]; [facility] Work Phone: 08-26-2010 08:39-0400 Body temperature 97.9 [degF] Tiffanie Flcherrie [place] [facility]; [facility] Work Phone: 08-26-2010 08:39-0400 Body weight 63.5 kg Tiffanie Bhagat [facility]; [facility] Work Phone: 08-26-2010 08:39-0400 Diastolic blood pressure 64 mm[Hg] Tiffanie Malavebreeisabella [facility]; [facility] Work Phone: Comment on above: Patient Position: Sitting; Cuff Location : Left Arm; Cuff Size: Standard 08-26-2010 08:39-0400 Heart rate 76 /min Tiffanie Malavecherrie [facility]; [facility] Work Phone: Comment on above: Pattern: Regular 08-26-2010 08:39-0400 Respiratory rate 16 /min Tiffanie Malavecherrie [facility]; [facility] Work Phone: Comment on above: Pattern: Unlabored 08-26-2010 08:39-0400 Systolic blood pressure 100 mm[Hg] Tiffanie Malavebreeisabella [facility]; [facility] Work [...] Systolic blood pressure 122 mm[Hg] Haven Jonatan IRRIGATION SPECIALIST [facility]; [facility] Work [...] 10:28-0500 Body temperature 97.8 [degF] Haven Cheung IRRIGATION SPECIALIST [facility]; [facility] Work Phone: Comment on above: Method: Oral 01-20-2010 10:28-0500 Body weight 59.88 kg Haven Cheung IRRIGATION SPECIALIST [facility]; [facility] Work Phone: 01-20-2010 10:28-0500 Diastolic blood pressure 68 mm[Hg] Haven Cheung IRRIGATION SPECIALIST [facility]; [facility] Work Phone: Comment on above: Patient Position: Sitting; Cuff Location : Left Arm; Cuff Size: Standard 01-20-2010 10:28-0500 Heart rate 66 /min Haven Cheung IRRIGATION SPECIALIST [facility]; [facility] Work Phone: Comment on above: Pattern: Regular 01-20-2010 10:28-0500 Respiratory rate 17 /min Haven Cheung IRRIGATION SPECIALIST [facility]; [facility] Work Phone: Comment on above: Pattern: Unlabored 01-20-2010 10:28-0500 Systolic blood pressure 102 mm[Hg] Haven Cheung IRRIGATION SPECIALIST [facility]; [facility] Work Phone: Comment on above: Patient Position: Sitting; Cuff Location : Left Arm; Cuff Size: Standard 09-22-2009 09:12-0400 Body temperature 98.2 [degF] Haven Cheung IRRIGATION SPECIALIST [facility]; [facility] Work Phone: Comment on above: Method: Oral 09-22-2009 09:12-0400 Body weight 59.88 kg Haven Cheung IRRIGATION SPECIALIST [facility]; [facility] Work Phone: 09-22-2009 09:12-0400 Diastolic blood pressure 68 mm[Hg] Haven Cheung IRRIGATION SPECIALIST [facility]; [facility] Work [...] 08:41-0400 Body weight 59.88 kg Tiffanie Bhagat [facility]; [facility] Work Phone: 09-17-2009 08:41-0400 Diastolic blood pressure 62 mm[Hg] Tiffanie Bhagat [facility]; [facility] Work Phone: Comment on above: Patient Position: Sitting; Cuff Location : Left Arm; Cuff Size: Standard 09-17-2009 08:41-0400 Heart rate 80 /min Tiffanie Bhagat [facility]; [facility] Work Phone: Comment on above: Pattern: Regular 09-17-2009 08:41-0400 Respiratory rate 18 /min Tiffanie Bhagat [facility]; [facility] Work Phone: Comment on above: Pattern: Unlabored 09-17-2009 08:41-0400 Systolic blood pressure 110 mm[Hg] Tiffanie Bhagat [facility]; [facility] Work [...] Diastolic blood pressure 60 mm[Hg] Tiffanie Bhagat [facility]; [facility] Work [...] Systolic blood pressure 96 mm[Hg] Tiffanie Bhagat [facility]; [facility] Work Phone: Comment on above: Patient Position: Sitting; Cuff Location : Left Arm; Cuff Size: Standard 05-21-2009 10:29-0400 Body temperature 97.6 [degF] [facility]; [facility] Work Phone: Comment on above: Method: Oral 05-21-2009 10:29-0400 Diastolic blood pressure 60 mm[Hg] [facility] Work Phone: Comment on above: Patient Position: Sitting; Cuff Location : Right Arm; Cuff Size: Standard 05-21-2009 10:29-0400 Heart rate 68 /min Suri Lopez [facility]; [facility] Work Phone: Comment on above: Pattern: Regular 05-21-2009 10:29-0400 Respiratory rate 18 /min Suri [facility]; [facility] Work Phone: Comment on above: Pattern: Unlabored 05-21-2009 10:29-0400 Systolic blood pressure 102 mm[Hg] [facility] Work Phone: Comment on above: Patient Position: Sitting; Cuff Location : Right Arm; Cuff Size: Standard 04-15-2009 09:03-0500 Body temperature 97.3 [degF] Tiffanie Bhagat [facility]; [facility] Work Phone: 04-15-2009 09:03-0500 Diastolic blood pressure 60 mm[Hg] Tiffanie Bhagat [facility]; [facility] Work Phone: Comment on above: Patient Position: Sitting; Cuff Location : Left Arm; Cuff Size: Large 04-15-2009 09:03-0500 Heart rate 66 /min Tiffanie Bhagat [facility]; [facility] Work Phone: Comment on above: Pattern: Regular 04-15-2009 09:03-0500 Respiratory rate 18 /min Tiffanie Bhagat [facility]; [facility] Work Phone: Comment on above: Pattern: Unlabored 04-15-2009 09:03-0500 Systolic blood pressure 110 mm[Hg] Tiffanie Leola [facility]; [facility] Work Phone: Comment on above: Patient Position: Sitting; Cuff Location : Left Arm; Cuff Size: Large 02-26-2009 08:50-0500 Body height 0 cm Tiffanie Leola [facility]; [facility] Work Phone: 02-26-2009 08:50-0500 Body temperature 98.2 [degF] Tiffanie Leola [facility]; [facility] Work Phone: Comment on above: Method: Undefined 02-26-2009 08:50-0500 Body weight 62.6 kg Tiffanie Leola [facility]; [facility] Work Phone: 02-26-2009 08:50-0500 Diastolic blood pressure 64 mm[Hg] Tiffanie Leola [facility]; [facility] Work Phone: Comment on above: Patient Position: Sitting; Cuff Location : Right Arm; Cuff Size: Standard 02-26-2009 08:50-0500 Head Occipital-frontal circumference 0 cm Tiffanie Leola [facility]; [facility] Work Phone: 02-26-2009 08:50-0500 Heart rate 68 /min Tiffanie Leola [facility]; [facility] Work Phone: Comment on above: Pattern: Regular 02-26-2009 08:50-0500 Respiratory rate 16 /min Tiffanie Leola [facility]; [facility] Work Phone: Comment on above: Pattern: Undefined 02-26-2009 08:50-0500 Systolic blood pressure 102 mm[Hg] Tiffanie Leola [facility]; [facility] Work Phone: Comment on above: Patient Position: Sitting; Cuff Location : Right Arm; Cuff Size: Standard 12-25-2008 11:33-0400 Body height 165.1 cm Ivaan Rebolledo [facility]; [facility] Work Phone: 12-25-2008 11:33-0400 Body mass index (BMI) [Ratio] 22.46 kg/m2 Ivana Rebolledo [facility]; [facility] Work Phone: 12-25-2008 11:33-0400 Body surface area Derived from formula 1.67 m2 Ivana Rebolledo [facility]; [facility] Work Phone: 12-25-2008 11:33-0400 Body weight 61.24 kg Ivana Rebolledo [facility]; [facility] Work Phone: 12-25-2008 11:33-0400 Diastolic blood pressure 60 mm[Hg] Ivana Rebolledo [facility]; [facility] Work Phone: Comment on above: Patient Position: Supine; Cuff Location: Left Arm; Cuff Size: Standard 12-25-2008 11:33-0400 Head Occipital-frontal circumference 0 cm Ivana Rebolledo [facility]; [facility] Work Phone: 12-25-2008 11:33-0400 Heart rate 60 /min Ivana Rebolledo [facility]; [facility] Work Phone: Comment on above: Pattern: Regular 12-25-2008 11:33-0400 Respiratory rate 16 /min Ivana Rebolledo [facility]; [facility] Work Phone: Comment on above: Pattern: Unlabored 12-25-2008 11:33-0400 Systolic blood pressure 98 mm[Hg] Ivana Rebolledo [facility]; [facility] Work Phone: Comment on above: Patient Position: Supine; Cuff Location: Left Arm; Cuff Size: Standard 12-13-2008 07:30-0400 Body height 0 cm Tiffanie Bhagat [facility]; [facility] Work Phone: 12-13-2008 07:30-0400 Body temperature 97.9 [degF] Tiffanie Bhagat [facility]; [facility] Work Phone: Comment on above: Method: Undefined 12-13-2008 07:30-0400 Body weight 0 kg Tiffanie Bhagat [facility]; [facility] Work Phone: 12-13-2008 07:30-0400 Diastolic blood pressure 64 mm[Hg] Tiffanie Leola [facility]; [facility] Work Phone: Comment on above: Patient Position: Sitting; Cuff Location : Right Arm; Cuff Size: Standard 12-13-2008 07:30-0400 Head Occipital-frontal circumference 0 cm Tiffanie Leola [facility]; [facility] Work Phone: 12-13-2008 07:30-0400 Heart rate 92 /min Tiffanie Leola [facility]; [facility] Work Phone: Comment on above: Pattern: Regular 12-13-2008 07:30-0400 Respiratory rate 18 /min Tiffanie Leola [facility]; [facility] Work Phone: Comment on above: Pattern: Undefined 12-13-2008 07:30-0400 Systolic blood pressure 116 mm[Hg] Tiffanie Leola [facility]; [facility] Work Phone: Comment on above: Patient Position: Sitting; Cuff Location : Right Arm; Cuff Size: Standard 12-03-2008 15:56-0400 Body height 0 cm Tiffanie Leola [facility]; [facility] Work Phone: 12-03-2008 15:56-0400 Body temperature 97.1 [degF] Tiffanie Leola [facility]; [facility] Work Phone: Comment on above: Method: Undefined 12-03-2008 15:56-0400 Body weight 0 kg Tiffanie Leola [facility]; [facility] Work Phone: 12-03-2008 15:56-0400 Diastolic blood pressure 74 mm[Hg] Tiffanie Leola [facility]; [facility] Work Phone: Comment on above: Patient Position: Sitting; Cuff Location : Left Arm; Cuff Size: Standard 12-03-2008 15:56-0400 Head Occipital-frontal circumference 0 cm Tiffanie Bhagat [facility]; [facility] Work Phone: 12-03-2008 15:56-0400 Heart rate 68 /min iTffanie Bhagat [facility]; [facility] Work Phone: Comment on above: Pattern: Regular 12-03-2008 15:56-0400 Respiratory rate 18 /min Tiffanie Bhagat [facility]; [facility] Work Phone: Comment on above: Pattern: Undefined 12-03-2008 15:56-0400 Systolic blood pressure 108 mm[Hg] Tiffanie Bhagat [facility]; [facility] Work Phone: Comment on above: Patient Position: Sitting; Cuff Location : Left Arm; Cuff Size: Standard 11-19-2008 09:09-0400 Body height 165.1 cm Tiffanie Malavecher[facility]; [facility] Work Phone: 11-19-2008 09:09-0400 Body mass index (BMI) [Ratio] 22.46 kg/m2 Tiffanie Malavecherrie [facility]; [facility] Work Phone: 11-19-2008 09:09-0400 Body surface area Derived from formula 1.67 m2 Tiffanie Malavecherrie [facility]; [facility] Work Phone: 11-19-2008 09:09-0400 Body temperature 97.6 [degF] Tiffanie Malavecherrie [facility]; [facility] Work Phone: Comment on above: Method: Undefined 11-19-2008 09:09-0400 Body weight 61.24 kg Tiffanie Malavecherrie [facility]; [facility] Work Phone: 11-19-2008 09:09-0400 Diastolic blood pressure 78 mm[Hg] Tiffanie Malavecherrie [facility]; [facility] Work [...] Diastolic blood pressure 76 mm[Hg] Ivana Rebolledo [facility]; [facility] Work Phone: Comment on above: Patient Position: Supine; Cuff Location: Left Arm; Cuff Size: Standard 10-02-2008 15:29-0400 Head Occipital-frontal circumference 0 cm Ivana Rebolledo [facility]; [facility] Work Phone: 10-02-2008 15:29-0400 Heart rate 66 /min Ivana Rebolledo [facility]; [facility] Work Phone: Comment on above: Pattern: Regular 10-02-2008 15:29-0400 Respiratory rate 16 /min Ivanawilliam Rebolledo [facility]; [facility] Work [...] Derived from formula 1.71 m2 Ivana Rebolledo [facility]; [facility] Work Phone: 09-10-2008 13:44-0400 Body weight 62.63 kg Ivana Rebolledo [facility]; [facility] Work [...] Start: 01-15-2025 End: 01-15-2025 ambulatory Aicha Fast Facility:[facility] Start: 01-11-2025 ambulatory Aicha Fast Facility:[facility] Start: 12-24-2024 End: 12-24-[address] Maite Arceo [facility] Work Phone: Start: 12-24-2024 End: 12-24-[address] Aicha Blackwood DO Work Phone: -[facility] Start: 11-26-2024 End: 11-26-[address] Maite Arceo DC -[facility] Work Phone: Start: 11-26-2024 End: 11-26-[address] Aicha Blackwood DO Work Phone: -[facility] Start: 11-19-2024 End: 11-19-[address] [...] Start: 11-06-2024 End: 11-06-2024 ambulatory Aicha Blackwood Facility:[facility] Start: 10-30-2024 End: 10-30-[address] Maite Arceo DC -[facility] Work Phone: Start: 10-30-2024 End: 10-30-[address] Aicha Blackwood DO Work Phone: -[facility] Start: 10-24-[address] Aicha Blackwood DO -Physical Therapy Work Phone: Start: 10-17-2024 End: 10-17-[address] Narcisa Perez MD -[facility] Work Phone: Start: 10-17-2024 End: 10-17-[address] Aicha Blackwood DO Work Phone: -[facility] Start: 10-08-2024 End: 10-08-[address] Maite Arceo DC -[facility] Work Phone: Start: 10-08-2024 End: 10-08-[address] Aicha Blackwood DO Work Phone: [facility] Start: 09-24-2024 End: 09-24-[address] Maite Arceo DC -[facility] Work Phone: Start: 09-24-2024 End: 09-24-[address] Aicha Blackwood DO Work Phone: [facility] Start: 09-06-2024 End: 09-06-[address] Maite Arceo DC -[facility] Work Phone: Start: 09-06-2024 End: 09-06-[address] Aicha Blackwood DO Work Phone: [facility] Start: 09-06-2024 Non-patient / Non-visit Dr. Edwardo kang MD -[facility] Start: 09-06-2024 End: 09-06-[address] Aicha Blackwood DO Work Phone: -[facility] Services Start: 09-06-2024 End: 09-06-[address] Aicha Blackwood DO -Cardiovascular Services Work Phone: Start: 09-06-2024 End: 09-06-2024 ambulatory Aicha Blackwood Facility:[facility] Start: 09-04-2024 Non-patient / Non-visit Dr. Willie Perez MD -[facility] Work Phone: Start: 08-28-2024 End: 08-28-[address] Maite Arceo DC -[facility] Work Phone: Start: 08-28-2024 End: 08-28-[address] Aicha Blackwood DO Work Phone: [facility] Work Phone: Start: 08-23-2024 End: 08-23-[address] Maite Arceo DC -[facility] Work Phone: Start: 08-23-2024 End: 08-23-[address] Aicha Blackwood DO Work Phone: [facility] Work Phone: Start: 08-09-2024 End: 08-09-[address] Maite Arceo DC -[facility] Work Phone: Start: 08-09-2024 End: 08-09-[address] Aicha Blackwood DO Work Phone: [facility] Work Phone: Start: 08-02-2024 End: 08-02-[address] Aicha Blackwood DO Work Phone: [facility] Work Phone: Start: 08-02-2024 End: 08-02-[address] Aicha Blackwood DO -Cardiovascular Services Work Phone: Start: 08-02-2024 End: 08-02-2024 ambulatory Aicha Blackwood Facility:[facility] Start: 07-31-2024 End: 07-31-[address] Maite Arceo DC -[facility] Work Phone: Start: 07-31-2024 End: 07-31-[address] Aicha Blackwood DO Work Phone: [facility] Work Phone: Start: 07-02-2024 End: 07-02-[address] Maite Arceo DC -[facility] Work Phone: Start: 07-02-2024 End: 07-02-2024 ambulatory Maite Arceo Facility:[facility] Start: 06-26-2024 End: 06-26-[address] Aicha Blackwood DO -Physical Therapy Work Phone: Start: 06-26-2024 End: 06-26-2024 ambulatory Aicha Blackwood Facility:[facility] Start: 06-15-2024 ambulatory Aly Alyssa Facility :[facility] Start: 06-15-2024 ambulatory Aicha Blackwood Facility:[facility] Start: 06-06-2024 End: 06-06-[address] Murphy Stafford MD -[facility] Start: 06-06-2024 End: 06-06-2024 ambulatory Murphy Stafford Facility:[facility] Start: 06-04-2024 End: 06-04-[address] Maite Arceo DC -[facility] Work Phone: Start: 06-04-2024 End: 06-04-2024 ambulatory Maite Arceo Facility:[facility] Start: 05-29-2024 End: 06-04-[address] Aicha Blackwood DO -Nutritional Servic es Work Phone: Start: 05-29-2024 End: 06-04-[address] Aicha Blackwood DO Work Phone: [facility] Work Phone: Start: 05-17-2024 Encounter for genera l adult medical examination without abnormal findings Tiffanie Cano [facility] Start: 05-04-2024 End: 05-04-[address] Aicha Blackwood DO Work Phone: [facility] Work Phone: Start: 05-04-2024 End: 05-04-2024 Patient encounter procedure Tiffanie LOPEZC -Laboratory, [place] Work Phone: Start: 05-04-2024 End: 05-04-2024 ambulatory Tiffanie Cano Facility:[facility] Start: 05-01-2024 End: 05-01-[address] Aicha Blackwood DO Work Phone: [facility] Work Phone: Start: 05-01-2024 End: 05-01-2024 Patient encounter procedure Tiffanie BERRY -[facility] Work Phone: Start: 04-30-2024 End: 04-30-[address] Maite Arceo DC -[facility] Work Phone: Start: 04-30-2024 End: 05-01-2024 ambulatory Tiffanie Cano Facility:[facility] Start: 03-19-2024 End: 03-19-[address] Maite Arceo DC -[facility] Work Phone: Start: 03-19-2024 End: 03-19-2024 ambulatory Maite Arceo Facility:[facility] Start: 03-15-2024 End: 03-15-2024 Patient encounter procedure Tiffanie BERRY -[facility] Work Phone: Start: 03-15-2024 End: 03-15-2024 ambulatory Aicha Blackwood Facility:[facility] Start: 02-16-2024 End: 02-16-[address] Maite Arceo DC -[facility] Work Phone: Start: 02-16-2024 End: 02-16-2024 ambulatory Maite Arceo Facility:[facility] Start: 02-09-2024 End: 02-09-2024 ambulatory Aicha Blackwood Facility:[facility] Start: 02-09-2024 End: 02-09-[address] Aicha Blackwood DO -Physical Therapy Work Phone: Start: 01-17-2024 End: 01-17-[address] Maite Arceo DC -[facility] Work Phone: Start: 01-24-2023 End: 01-24-[address] Edwardo Petit Work Phone: [facility] Work Phone: Start: 01-21-2023 Non-patient / Non-visit Dr. Jeff Petit Work Phone: [facility] Start: 01-21-2023 End: 01-21-[address] Edwardo Petit Work Phone: [facility] Work Phone: Start: 01-21-2023 End: 01-21-[address] Edwardo Petit Work Phone: [facility]-Cardiovascular Services Work Phone: Start: 01-07-2023 Review Aicha Fast DO Work Phone: [facility] Start: 01-05-2023 End: 01-05-2023 Office outpatient visit 15 minutes Aicha Fast DO Work Phone: [facility] Start: 12-30-2022 End: 12-30-[address] [facility] Work Phone: Start: 12-24-2022 End: 12-27-2022 Office outpatient new 45 minutes Aicha Fast DO Work Phone: [facility] Start: 12-24-2022 Review Aicha Fast DO Work Phone: [facility] Start: 12-07-2022 End: 12-07-[address] Edwardo [facility] Work Phone: Start: 11-24-2022 End: 11-24-[address] Edwardo Petit Work Phone: [facility] Work Phone: Start: 11-24-2022 End: 11-24-[address] Edwardo Petit Work Phone: [facility]-Medical Out Work Phone: Start: 11-22-2022 End: 11-22-[address] Edwardo Petit Work Phone: [facility] Work Phone: Start: 11-22-2022 End: 11-22-[address] Edwardo Petit Work Phone: [facility] Work Phone: Start: 11-09-2022 End: 11-09-[address] [facility] Work Phone: Start: 11-02-2022 End: 11-02-[address] Edwardo Petit Work Phone: [facility] Work Phone: Start: 11-02-2022 End: 11-02-[address] Edwardo Petit Work Phone: [facility]-Outpatient Bone Densitometry Work Phone: Start: 10-21-2022 End: 10-21-[address] Edwardo Petit Work Phone: [facility] Work Phone: Start: 10-21-2022 End: 10-21-[address] Edwardo Petit Work Phone: [facility] Work Phone: Start: 10-11-2022 End: 10-11-[address] Edward[facility] Work Phone: Start: 08-26-2022 End: 08-26-[address] Edward[facility] Work Phone: Start: 08-04-2022 End: 08-04-[address] Edwardo Petit Work Phone: [facility] Work Phone: Start: 08-04-2022 End: 08-04-[address] Edwardo Petit Work Phone: [facility]-Laboratory, Specimen Work Phone: Start: 07-29-2022 End: 07-29-[address] Edwardo Petit Work Phone: [facility] Work Phone: Start: 06-23-2022 End: 06-23-[address] Edwardo Petit Work Phone: [facility] Work Phone: Start: 06-23-2022 End: 06-23-[address] Edwardo Petit Work Phone: [facility] Start: 06-22-2022 End: 06-22-[address] Edwardo Petit Work Phone: [facility] Work Phone: Start: 06-22-2022 End: 06-22-[address] Edwardo Petit Work Phone: [facility]-Laboratory, Specimen Start: 06-15-2022 End: 06-15-[address] Edwardo Petit Work Phone: [facility] Start: 06-04-2022 End: 06-04-[address] Edwardo Petit Work Phone: [facility] Work Phone: Start: 06-04-2022 End: 06-04-[address] Edwardo Petit Work Phone: [facility] Start: 06-03-2022 End: 06-03-[address] Edwardo Petit Work Phone: [facility] Start: 05-31-2022 End: 05-31-[address] Edwarod Petit Work Phone: [facility] Start: 05-27-2022 End: 05-27-[address] Edwardo Petit Work Phone: [facility] Start: 05-25-2022 End: 05-25-[address] Edwardo Petit Work Phone: [facility] Work Phone: Start: 05-25-2022 End: 05-25-[address] [facility] Start: 05-25-2022 End: 05-25-[address] Edwardo Petit Work Phone: [facility] Start: 05-20-2022 End: 05-20-[address] Edwardo Petit Work Phone: [facility] Start: 05-17-2022 End: 05-17-[address] Edwardo Petit Work Phone: [facility] Start: 05-13-2022 End: 05-13-[address] Edwardo Petit Work Phone: [facility] Start: 05-10-2022 End: 05-10-[address] Edwardo Petit Work Phone: [facility] Start: 05-06-2022 End: 05-06-[address] Edwardo Petit Work Phone: [facility] Start: 05-04-2022 End: 05-04-[address] Edwardo Petit Work Phone: [facility] Start: 04-29-2022 End: 04-29-[address] Edwardo Petit Work Phone: [facility] Start: 04-27-2022 End: 04-27-[address] Edwardo Petit Work Phone: [facility] Start: 04-22-2022 End: 04-22-[address] Edwardo Petit Work Phone: [facility] Start: 04-20-2022 End: 04-20-[address] Edwardo Petit Work Phone: [facility] Work Phone: Start: 04-20-2022 End: 04-20-[address] Edwardo Petit Work Phone: [facility] Start: 04-19-2022 End: 04-19-[address] Edwardo Petit Work Phone: [facility] Start: 04-08-2022 End: 04-08-[address] Edwardo Petit Work Phone: [facility] Start: 04-08-2022 End: 04-08-[address] Edwardo Petit Work Phone: [facility] Work Phone: Start: 04-08-2022 End: 04-08-[address] Edwardo Petit Work Phone: [facility] Start: 03-10-2022 End: 03-10-[address] Edwardo Petit Work Phone: [facility] Work Phone: Start: 03-10-2022 End: 03-10-[address] Edwardo Petit Work Phone: [facility] Start: 03-09-2022 End: 03-09-[address] Edwardo Petit Work Phone: [facility] Start: 03-02-2022 End: 03-02-[address] Edwardo Petit Work Phone: [facility] Work Phone: Start: 03-02-2022 End: 03-02-[address] Edwardo Petit Work Phone: [facility]-Laboratory, Specimen Start: 02-22-2022 End: 02-22-[address] Edwardo Petit Work Phone: [facility] Work Phone: Start: 02-22-2022 End: 02-22-[address] Edwardo Petit Work Phone: [facility] Start: 01-20-2022 End: 01-20-[address] Edwardo Petit Work Phone: [facility] Start: 12-28-2021 End: 12-28-[address] Edwardo Petit Work Phone: [facility] Start: 12-25-2021 End: 12-25-[address] Edwardo Petit Work Phone: [facility] Work Phone: Start: 12-25-2021 End: 12-25-[address] Edwardo Petit Work Phone: [facility]-Physical Therapy Start: 12-22-2021 End: 12-22-[address] Edwardo Petit Work Phone: [facility] Start: 12-16-[address] [facility] Start: 12-15-2021 End: 12-15-[address] Edwardo Petit Work Phone: [facility] Work Phone: Start: 12-15-2021 End: 12-15-[address] Edwardo Petit Work Phone: [facility] Start: 12-14-2021 End: 12-14-[address] Edwardo Petit Work Phone: [facility] Start: 11-24-2021 End: 11-24-[address] Edwardo Petit Work Phone: [facility] Start: 11-20-2021 End: 11-20-[address] Edwardo Petit Work Phone: [facility] Work Phone: Start: 11-20-2021 End: 11-20-[address] [facility] Start: 11-10-2021 End: 11-10-[address] Edwardo Petit Work Phone: [facility] Start: 10-19-2021 End: 10-19-[address] Edwardo Petit Work Phone: [facility] Start: 10-15-2021 End: 10-15-[address] Edwardo Petit Work Phone: [facility] Start: 09-21-2021 End: 09-21-[address] Edwardo Petit Work Phone: [facility] Start: 08-24-2021 End: 08-24-[address] Edwardo Petit Work Phone: [facility] Start: 07-27-2021 End: 07-27-[address] Edwardo Petit Work Phone: [facility] Start: 07-09-2021 End: 07-09-[address] [facility] Pteit [facility] Start: 06-29-2021 End: 06-29-[address] Edwardo Petit Work Phone: [facility] Start: 06-01-2021 End: 06-01-[address] Edwardo Petit Work Phone: [facility] Start: 05-08-2021 End: 05-08-[address] [facility] Start: 05-04-2021 End: 05-04-[address] Edwardo Petit Work Phone: [facility] Start: 04-06-2021 End: 04-06-[address] Edwardo Petit Work Phone: [facility] Start: 04-03-2021 End: 04-03-[address] [facility] Start: 04-03-2021 End: 04-03-[address] [facility] Start: 02-14-2015 End: 02-16-2015 Office outpatient [...] End: 11-20-2014 Office outpatient visit 15 minutes Aicha Fast [...] Start: 03-28-2012 End: 03-28-2012 Patient encounter procedure [facility] Start: 02-25-2012 End: 02-25-2012 [...] Start: 07-08-2009 End: 07-08-2009 Patient encounter procedure Aicha Fast DO Work [...] Work Phone: Patient encounter procedure Joaquina Lewis [facility] [facility] Work Phone: Patient encounter procedure Joaquina Lewis [facility]; [facility] [...] without Cont Procedure Note: See Note; NOTES: [facility] Imaging Services [address] [place] [address] Verdana 4d Abdomen/Pelvis without Cont MR#: [id number] Acct: [id number] Name: ANTONIO DECKER Jey Rep #: [id number] : 1945 F 69 From: Kika Small MD PCP: Aicha Blackwood DO Status: REG CLI Study: Abdomen/Pelvis without Cont Date of Exam: 12/23/14 Exam# [id number] Ordering Dr: Aicha Blackwood DO STUDY: CT [...] at 11:36 EDT Tel , Service support [phone], CC: Aicha Blackwood DO Cash Checker: Signed Aicha Blackwood DO Work Phone: Start: 11-20-2014 End: 11-22-2014 Sacrum-Coccyx min 2 Views Procedure Note: See Note; NOTES: [facility] Imaging Services [address] [place] [address] Radiology Report MR#: [id number] Acct: [id number] Name: ANTONIO DECKER Rep #: [id number] : 1945 F 69 From: Angelito Lester MD PCP: Aicha Blackwood DO Status: REG CLI Study: Sacrum-Coccyx min 2 Views Date of Exam: 11/20/14 Exam# [id number] Ordering Dr: Tash Rust STUDY: X-RAY - [...] MD at 4:38 EDT , Service support [phone], RAD/Sacrum-Coccyx min 2 Views IMPRESSION: Normal x-rays of the sacrum and coccyx. Electronically Signed: Angelito Lester MD at 4:38 EDT , Service support [phone], CC: Tash Rust; Aicha Blackwood DO Cash Checker: Signed Tash Rust Work Phone: Start: 07-23-2014 End: 07-23-2014 Bilat Scrn Digital AND CAD Procedure Note: See Note; NOTES: [facility] Imaging Services [address] [address] Breast Imaging Report MR#: [id number] Acct: [id number] Name: ANTONIO DECKER Rep #: [id number] : 1945 F 69 From: Juanpablo Duran MD PCP: Aicha Blackwood DO Status: REG CLI Study: Jermaine Scrn Digital AND CAD Date of Exam: 07/23/14 Exam# [id number] Ordering Dr: Aicha Blackwood DO MAMMOGRAPHY - [...] Juanpablo Duran MD at 10:39 EDT Tel [phone], Service support [phone], CC: Aicha Blackwood DO Cash Checker: Signed Aicha Blackwood DO Work Phone: Start: 07-23-2014 End: 07-24-2014 Dexa Bone Density Study (HP) Procedure Note: See Note; NOTES: [facility] Imaging Services [address] [place] [address] Bone Density Report MR#: [id number] Acct: [id number] Name: ANTONIO DECKER Rep #: [id number] : 1945 F 69 From: Juanpablo Duran MD PCP: Aicha Blackwood DO Status: REG CLI Study: Dexa Bone Density Study () Date of Exam: 07/23/14 Exam# [id number] Ordering Dr: Aicha Blackwood DO STUDY: DUAL [...] Juanpablo Duran MD at 11:29 EDT Tel [phone], Service support [phone], CC: Aicha Blackwood DO Cash Checker: Signed Aicha Blackwood DO Work Phone: Start: 11-14-2013 End: 11-14-2013 Echocardiogram Complete Procedure Note: See Note; NOTES: [facility] Cardiovascular Services [address] [place] [address] Echo Complete 11/14/13 0803 MR#: [id number] Acct: [id number] Name: ANTONIO DECKER Rep #: [id number] : 1945 68 From: Rki Chaudhary MD Attending Dr: Aicha Blackwood DO [...] Dictated: 11/14/13 0803 Date Transcribed: 11/14/13 1531 Cash Checker: Signed Aicha Blackwood DO Work Phone: Start: 11-14-2013 End: 11-14-2013 Gallbladder Procedure Note: See Note; NOTES: [facility] Imaging Services [address] [place], [place] [address] [address] Ultrasound Report MR#: [id number] Acct: [id number] Name: ANTONIO DECKER Rep #: [id number] : 1945 F 68 From: Juanpablo Duran MD PCP: iAcha Blackwood DO Status: REG CLI Study: Gallbladder Date of Exam: 11/14/13 Exam# [id number] Ordering Dr: Aicha Blackwood DO STUDY: ABDOMINAL [...] Juanpablo Duran MD at 15:50 EDT Tel [phone], Service support [phone], CC: Aicha Blackwood DO Cash Checker: Signed Aicha Blackwood DO Work Phone: Start: 11-09-2013 End: 11-09-2013 Ecg routine ecg w/least 12 lds w/i&r [MEASUREMENTS ANALYSIS] Date of Test: 11/09/2013 10:24:43; Heart Rate: 83; IN Interval: 170; QRS: 88; QT Interval: 362; Corrected QT Interval (QTc): 402; P Wave Hendley: 47; QRS Wave Hendley: 44; T Wave Hendley: 45; Blood Pressure: 122/72 [ECG DIAGNOSTIC STATEMENTS] Date of Test: 11/09/2013 10:24:43; Summary: Sinus Rhythm - Nonspecific T-abnormality. ABNORMAL Aicha Blackwood DO Work Phone: Comment on above: ekg showed normal si nus rhythym, normal axis, no acute st/t wave changes t wave inversion anteriorly no change Start: 07-19-2013 End: 07-19-2013 Bilat Scrn Digital & CAD Procedure Note: See Note; NOTES: [facility] Imaging Services [address] [place] [address] Breast Imaging Report MR#: [id number] Acct: [id number] Name: ANTONIO EDCKER Rep #: [id number] : 1945 F 68 From: Juanpablo Duran MD PCP: Aicha Blackwood DO Status: REG CLI Exam# [id number] Ordering Dr: Aicha Blackwood DO MAMMOGRAPHY - [...] Juanpablo Duran MD at 8:55 EDT Tel [phone], Service support [phone], CC: Aicha Blackwood DO Cash Checker: Signed Aicha Blackwood DO Work Phone: Start: 01-02-2013 End: 01-02-2013 Hip min 2 Views Procedure Note: See Note; NOTES: [facility] Imaging Services [address] [place] [address] Radiology Report MR#: [id number] Acct: [id number] Name: ANTONIO DECKER Rep #: [id number] : 1945 F 68 From: Primo Manning DO PCP: Aicha Blackwood DO Status: REG CLI Study: Hip min 2 Views Date of Exam: 01/02/13 Exam# [id number] Ordering Dr: Aye Willard DO STUDY: X-RAY [...] January 02, 2013 at 5:40:44 PM EDT [phone] Electronically Signed HH/HH If you are the referring physician and would like to consult with the radiologist who provided this interpretation, please contact Primo Manning D.O. at [phone]. If this radiologist is unavailable, you will be directed to another radiologist to assist. If you are a patient with a question regarding this report, please contact your referring physician directly. Professional Interpretation Provided By: [employer], Phone , These documents contain legally protected [...] CC: Aicha Blackwood DO; Aye Willard DO Cash Checker: Signed Aye Willard DO Work Phone: Start: 12-22-2012 End: 12-22-2012 Shoulder min 2 Views Procedure Note: See Note; NOTES: [facility] Imaging Services [address] [place] [address] Radiology Report MR#: [id number] Acct: [id number] Name: ANTONIO DECKER Rep #: [id number] : 1945 F 67 From: Juanpablo Duran MD PCP: Aicha Blackwood DO Status: REG CLI Study: Shoulder min 2 Views Date of Exam: 12/22/12 Exam# [id number] Ordering Dr: Aicha Blackwood DO STUDY: X-RAY [...] December 22, 2012 at 1:02:17 PM EDT [phone] Electronically Signed GP/GP If you are the referring physician and would like to consult with the radiologist who provided this interpretation, please contact Juanpablo Duran M.D. at [phone]. If this radiologist is unavailable, you will be directed to another radiologist to assist. If you are a patient with a question regarding this report, please contact your referring physician directly. Professional Interpretation Provided By: [employer], Phone , These documents contain legally protected [...] or destruction of these documents. CC: Aicha [employer] Cash Checker: Signed [employer] Work Phone: Bacteria identified in Urine by Culture Dr. dEwardo Petit Work Phone: Clostridium difficil e detection Dr. Edwardo Petit Work Phone: Investigation of transfusion reaction Dr. Edwardo Petit Work Phone: End: 12-24-2022 Laboratory test result abnormal Abnormal laboratory test [employer] Work Phone: Comment on above: repeat normal Laboratory test resu lt abnormal Abnormal laboratory test [employer] Work Phone: Nasopharyngeal Culture Dr. Azalea Petit [...] 1st to 1 hr THER/PROPH/DIAG IV INF [facility] Start: 11-20-2021 Iv infusion therapy/prophylaxis /dx 1st to 1 hr THER/PROPH/DIAG IV INF [facility] Work Phone: Start: 06-06-2015 Urnls dip stick/tabl et reagent auto microscopy URINALYSIS, W/ MICRO (54572) [facility] Work Phone: Start: 06-06-2015 Lipid panel LIPID PANEL (76998) [facility] pre[facility]; [facility] Work Phone: Start: 06-06-2015 25 hydroxy includes fractions if performed Vitamin D Hydroxy (89935) [facility]; [facility] Work Phone: Start: 06-06-2015 Blood count complete auto&auto difrntl wbc CBC W/AUTO DIFF WBC (70312) [facility]; [facility] Work Phone: Start: 06-06-2015 Comprehensive metabo lic panel METABOLIC PANEL, COMPREHENSIVE (00532) [facility]; [facility] Work Phone: Start: 12-25-2014 Procedure Education Eprescribe d prescriptions (G8553) [facility]; [facility] Work Phone: Start: 12-25-2014 Comprehensive metabo lic panel METABOLIC PANEL, COMPREHENSIVE (19999) [facility]; [facility] Work Phone: Start: 12-25-2014 25 hydroxy includes fractions if performed Vitamin D Hydroxy (52109) [facility]; [facility] Work [...] et reagent auto microscopy URINALYSIS, W/ MICRO (82039) [facility]; [facility] Work Phone: Start: 07-31-2014 Blood count manual c ell count each CBC with auto diff (93008) [facility]; [facility] Work Phone: Start: 07-31-2014 Lipid panel LIPID PANEL (24257) [facility]; [facility] Work Phone: Start: 07-31-2014 Assay of thyroid stimulating hormone tsh TSH (43186) [facility]; [facility] Work Phone: Start: 07-31-2014 25 hydroxy includes fractions if performed Vitamin D Hydroxy (73419) [facility]; [facility] Work Phone: Start: 05-17-2014 Patient Education Anxiety: anxiety [facility]; [facility] Work Phone: Start: 05-17-2014 Procedure Education Eprescribe d prescriptions (G8553) [facility]; [facility] Work Phone: Start: 01-22-2014 Calcium total CALCIUM SERUM (48054) [facility]; [facility] Work Phone: Start: 01-22-2014 25 hydroxy includes fractions if performed Vitamin D Hydroxy (77535) [facility]; [facility] Work Phone: Start: 12-10-2013 Lipid panel LIPID PANEL (40130) [facility]; [facility] Work Phone: Start: 12-10-2013 25 hydroxy includes fractions if performed CALCIFEDIOL (05474) [facility]; [facility] Work [...] cus group a Rapid Strep Test, Office (97632) [facility]; [facility] Work [...] Comprehensive metabo lic panel METABOLIC PANEL, COMPREHENSIVE (37546) [facility]; [facility] Work Phone: Start: 08-21-2012 Assay of thyroid stimulating hormone tsh TSH (94961) [facility]; [facility] Work Phone: Start: 08-21-2012 25 hydroxy includes fractions if performed Vitamin D Hydroxy (41080) [facility]; [facility] Work Phone: Start: 08-21-2012 Lipid panel LIPID PANEL (77754) [facility]; [facility] Work Phone: Start: 07-21-2012 Patient Education Osteoporosis in Women *: bone density [facility]; [facility] Work Phone: Start: 07-21-2012 Calcium urine quantitative timed specimen URINE CALCIUM PHILIPP TIMED 24 Hour (94582) [facility]; [facility] Work Phone: Start: 07-21-2012 Protein electrophore tic fractj&quantj serum [facility]; [facility] Work Phone: Start: 03-28-2012 Patient Education Osteoporosis in Women *: bone loss [facility]; [facility] Work Phone: Start: 02-25-2012 Assay of iron Iron (12588) [facility]; [facility] Work [...] Assay of thyroid stimulating hormone tsh TSH (38176) [facility]; [facility] Work Phone: Start: 09-20-2011 25 hydroxy includes fractions if performed Vitamin D Hydroxy (96202) [facility]; [facility] Work Phone: Start: 09-20-2011 Lipid panel LIPID PANEL (10064) [facility]; [facility] Work Phone: Start: 09-20-2011 Patient Education Osteoporosis in Women *: bone loss [facility]; [facility] Work Phone: Start: 06-28-2011 Provider Instruction s for Treatment Follow up in 2 weeks [facility]; [facility] Work Phone: Start: 05-24-2011 Cul bact xcpt urine blood/stool aerobic isol RACHEL CULTURE-OTHER (19953) [facility]; [facility] Work Phone: Start: 05-24-2011 Iaadiadoo streptococ cus group a Rapid Strep Test, Office (32350) [facility]; [facility] Work Phone: Start: 05-24-2011 Provider Instruction s for Treatment [facility]; [facility] Work Phone: Start: 03-03-2011 Provider Instruction s for Treatment [facility]; [facility] Work Phone: Start: 03-03-2011 Comprehensive metabo lic panel METABOLIC PANEL, COMPREHENSIVE (40476) [facility]; [facility] Work Phone: Start: 03-03-2011 25 hydroxy includes fractions if performed Vitamin D Hydroxy (92850) [facility]; [facility] Work Phone: Start: 03-03-2011 Lipid panel LIPID PANEL (83649) [facility]; [facility] Work Phone: Start: 03-03-2011 Hpv, dna, amp probe HPV automatic (5 2847) [facility]; [facility] Work Phone: Start: 03-03-2011 Cytp cerv/vag auto t hin layer prep mnl screen Thin prep Pap (77905) [facility]; [facility] Work Phone: Start: 08-18-2010 Provider Instruction s for Treatment Diet, Exercise, and Wt loss [facility]; [facility] Work Phone: Start: 08-10-2010 Assay of thyroid stimulating hormone tsh TSH (THYROID STIMULATING HORMONE) (36264) [facility]; [facility] Work Phone: Start: 08-10-2010 Comprehensive metabo lic panel METABOLIC PANEL, COMPREHENSIVE (54805) [facility]; [facility] Work Phone: Start: 08-10-2010 Lipid panel LIPID PANEL (18893) [facility]; [facility] Work Phone: Start: 08-10-2010 25 hydroxy includes fractions if performed CALCIFEDIOL (24636) [facility]; [facility] Work Phone: Start: 05-12-2010 Assay of troponin quantitative Troponin I (14365) [facility]; [facility] Work Phone: Start: 05-12-2010 Creatine kinase mb fraction only CPK MB FRACTION (74455) [facility]; [facility] Work Phone: Start: 05-12-2010 Creatine kinase total CREATINE KINASE TOTAL (96116) [facility]; [facility] Work Phone: Start: 05-12-2010 C-reactive protein C-Reactive Protein (11254) [facility]; [facility] Work Phone: Start: 04-01-2010 Provider Instruction s for Treatment [facility]; [facility] Work Phone: Start: 03-02-2010 Provider Instruction s for Treatment Pap/Pelvic/Bimanual/Re ctal/Breast Exam was done. [facility]; [facility] Work Phone: Start: 03-02-2010 Cytp cerv/vag auto t hin layer prep mnl screen Thin prep Pap (14168) [facility]; [facility] Work Phone: Start: 03-02-2010 25 hydroxy includes fractions if performed Vitamin D Hydroxy (00104) [facility]; [facility] Work Phone: Start: 01-20-2010 Provider Instruction s for Treatment [facility]; [facility] Work Phone: Start: 12-23-2009 25 hydroxy includes fractions if performed CALCIFIDIOL (76968) VIT D 25 [facility]; [facility] Work Phone: Start: 09-17-2009 Provider Instruction s for Treatment *Antibiotic Usage Education - Female [facility]; [facility] Work Phone: Start: 09-17-2009 25 hydroxy includes fractions if performed Vitamin D Hydroxy (49945) [facility]; [facility] Work Phone: Start: 08-18-2009 Provider Instruction s for Treatment FOLLOW UP IN 3 WEEKS [facility]; [facility] Work Phone: Start: 05-21-2009 Comprehensive metabo lic panel METABOLIC PANEL, COMPREHENSIVE (76368) [facility]; [facility] Work Phone: Start: 05-21-2009 Lipid panel LIPID PANEL (38594) [facility]; [facility] Work Phone: Start: 05-21-2009 Blood count complete automated CBC (AUTO) (52471) [facility]; [facility] Work Phone: Start: 05-21-2009 Assay of thyroid stimulating hormone tsh TSH (12448) [facility]; [facility] Work Phone: Start: 05-21-2009 25 hydroxy includes fractions if performed Vitamin D Hydroxy (91511) [facility]; [facility] Work Phone: Start: 02-26-2009 Provider Instruction s for Treatment [facility]; [facility] Work Phone: Start: 02-26-2009 Cytp cerv/vag auto t hin layer prep mnl screen Thin prep Pap (00654) [facility]; [facility] Work Phone: Start: 12-03-2008 Provider Instruction s for Treatment [facility]; [facility] Work Phone: Start: 11-19-2008 Blood count manual c ell count each CBC WITH MANUAL DIFF (77747) [facility]; [facility] Work Phone: Start: 11-19-2008 Comprehensive metabo lic panel METABOLIC PANEL, COMPREHENSIVE (34291) [facility]; [facility] Work Phone: Start: 11-19-2008 25 hydroxy includes fractions if performed Vitamin D Hydroxy (46341) [facility]; [facility] Work Phone: Start: 10-02-2008 Provider Instruction s for Treatment Reviewed Lab:Insulin 2.3 to glucose 93 [facility]; [facility] Work Phone: Start: 09-24-2008 Glucose quantitative blood xcpt reagent strip GLUCOSE (32935) [facility]; [facility] Work Phone: Comment on above: Fasting Start: 09-24-2008 Assay of insulin total INSULIN, TOTA L (70774) [facility]; [facility] Work Phone: Start: 09-24-2008 Provider Instruction s for Treatment FOLLOW UP IN 1 WEEK [facility]; [facility] Work Phone: Start: 09-10-2008 Assay of thyroid stimulating hormone tsh TSH (93291) [facility]; [facility] Work Phone: Start: 09-10-2008 Blood count manual c ell count each CBC with manual diff (13855) [facility]; [facility] Work Phone: Start: 09-10-2008 Comprehensive metabo lic panel Metabolic Panel, Comprehensive (37449) [facility]; [facility] Work Phone: Start: 09-10-2008 Lipid panel Lipid Panel (47571) [facility]; [facility] Work Phone: Start: 09-10-[address] gtt 3 specimens GLUCOSE TOLERANCE TEST (GTT) 5 hour (53143) [facility]; [facility] Work Phone: Chiropractic manipulation [facility] Work Phone: Chiropractic manipulation [facility] Urine culture Urine Culture [facility] Work Phone: [facility]; [...] Immunization Date Immunization Notes Care Provider Fa [facility] 12-10-2022 respiratory syncytia l virus monoclonal antibody (palivizumab), intramuscular Aicha Fast DO Work Phone: [facility]; [facility] Work Phone: 12-19-2008 influenza, seasonal, injectable Aicha Fast DO Work Phone: [facility]; [facility] Work Phone: Comment on above: Lot #[id number]-left deltoidgiven by:[facility] 12-19-2008 pneumococcal polysaccharide vaccine, 23 valent Aicha Fast DO Work Phone: [facility]; [facility] Work Phone: Payers Date Payer Category Payer Self-pay [id number] 2024 Private Health Insurance [id number] 2024 Private Health Insurance 2024 Self-pay [id number] 2016 Unknown [id number] 2011 Medicare [id number] Medicare [id number] Unknown Medicare Unknown [id number] 2.16.8 40.1.768989.3.579.2.462 Unknown [id number] 2.16.8 40.1.955749.3.579.2.462 Unknown [id number] 2.16.8 40.1.651447.3.579.2.462 Unknown [id number] 2.16.8 40.1.214008.3.579.2.462 Unknown [id number] 2.16.8 40.1.568237.3.579.2.462 Unknown [id number] 2.16.8 40.1.513544.3.579.2.462 Unknown [id number] 2.16.8 40.1.789797.3.579.2.462 Unknown [id number] 2.16.8 40.1.306926.3.579.2.462 Unknown [id number] 2.16.8 40.1.913967.3.579.2.462 Unknown [id number] 2.16.8 40.1.051688.3.579.2.462 Unknown [id number] 2.16.8 40.1.959645.3.579.2.462 Unknown [id number] 2.16.8 40.1.222766.3.579.2.462 Unknown [id number] 2.16.8 40.1.138320.3.579.2.462 Unknown [id number] 2.16.8 40.1.930431.3.579.2.462 Unknown [id number] 2.16.8 40.1.967040.3.579.2.462 Unknown [id number] 2.16.8 40.1.477128.3.579.2.462 Unknown [id number] 2.16.8 40.1.357390.3.579.2.462 Unknown [id number] 2.16.8 40.1.249078.3.579.2.462 Unknown [id number] 2.16.8 40.1.137255.3.579.2.462 Unknown [id number] 2.16.8 40.1.378649.3.579.2.462 Unknown [id number] 2.16.8 40.1.147522.3.579.2.462 Unknown [id number] 2.16.8 40.1.332169.3.579.2.462 Unknown [id number] 2.16.8 40.1.777245.3.579.2.462 Unknown [id number] 2.16.8 40.1.925809.3.579.2.462 Unknown [id number] 2.16.8 40.1.220502.3.579.2.462 Unknown [id number] 2.16.8 40.1.734850.3.579.2.462 Unknown [id number] 2.16.8 40.1.150388.3.579.2.462 Unknown [id number] 2.16.8 40.1.058801.3.579.2.462 Unknown [id number] 2.16.8 40.1.370915.3.579.2.462 Unknown [id number] 2.16.8 40.1.958230.3.579.2.462 Unknown [id number] 2.16.8 40.1.169704.3.579.2.462 Unknown [id number] 2.16.8 40.1.089455.3.579.2.462 Social History Date Type Detail Facility Start: 06-29-2021 End: 01-24-2023 Tobacco smoking status INIS Unknown if ever smoked [facility] Start: 1945 Sex Assigned At Female W [facility] Alcohol Use Alcohol Use [facility] [...] 10-08-2024 Tobacco smoking status NHIS Ex-smoker (finding) [facility] Start: 05-15-2024 End: 06-05-2024 Sex Female (finding) [facility] Sex Female [facility] Goals Date Patient Goal Desired Activity /State Mental Status Date Assessment Result Facility 11-24-2022 Cognitive function Voice/Name [facility] Work Phone: 11-20-2021 Cognitive function Voice/Name [facility] Work Phone: Clinical Notes 01-17-2024 to 12-24-2024 Note Date & Type Note Facility 12-24-2024 Progress note [facility] 11-26-2024 Progress note [facility] 11-19-2024 Discharge summary Note Date/Time November 19, 2024 7:00pm [facility] [address] [place] [address] [address] [place] [address] / REHABILITATION SERVICES DISCHARGE SUMMARY MR#: [id number] Acct: [id number] Name: ANTONIO DECKER Rep #: [id number] : 1945 79 From: [place] [...] please feel free to call me at [phone]. Thank you for the referral of thispatient. Sincerely, IRENA Cotton Balance/Gait/Functional tests Balance/Special Test Scores Functional Gait Assessment Score: 25 % Disability: 16.6700 CATSIB Score (Max score 120 seconds): 120 Dizziness Score: 12 Lower Extremity Functional Score: 55 <Electronically signed by Adrianna Oliva MPT> 11/19/24 1421 CC: Dr. Aicha Blackwood DO ~ Signed [facility] Work Phone: 1(676) 194-103309-15-2025 Discharge summary [facility] [address] [place] [address] [address] [place] [address] / REHABILITATION SERVICES DISCHARGE SUMMARY MR#: [id number] Acct: [id number] Name: ANTONIO DECKER Rep #: [id number] : 1945 79 From: Adrianna Oliva [...] please feel free to call me at [phone]. Thank you for the referral of thispatient. Sincerely, Adrianna Oliva, MPT Balance/Gait/Functional tests Balance/Special Test Scores Functional Gait Assessment Score: 25 % Disability: 16.6700 CATSIB Score (Max score 120 seconds): 120 Dizziness Score: 12 Lower Extremity Functional Score: 55 11/19/24 1421 CC: Dr. Aicha Blackwood, DO ~ Signed [facility]07-21-2025 Evaluation note* Diagnosis Onset Date Resolution Status [...] thoracic region chronic December 24, 2024 11:29am [facility] Work Phone: 1(735) 442-335706-05-2025 Evaluation note* Diagnosis Onset Date Resolution Status [...] somatic dysfunction of cervical region acute J [facility] 2024 2:27pm Segmental and somatic dysfunction of lumbar region acute Joey e 2024 2:27pm Segmental and somatic dysfunction of pelvic region acute Joey e 2024 2:27pm Segmental and somatic dysfunction of thoracic region acute J [facility] 2024 2:27pm Back pain chronic August 23 2:27pm DDD (degenerative disc disease) chronic August 23, 2024 2:27pm Segmental and somatic dysfunction of cervical region acute J [facility] 2024 11:30am Segmental and somatic dysfunction of lumbar region acute Joey e 2024 11:30am Segmental and somatic dysfunction of pelvic region acute Joey e 2024 11:30am Segmental and somatic dysfunction of thoracic region acute J [facility] 2024 11:30am Back pain chronic August 28 11:30am 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 August 11:30am Segmental and somatic dysfunction of cervical region acute [facility] 2024 11:01am Segmental and somatic dysfunction of lumbar region acute Sep 11:01am Segmental and somatic dysfunction of pelvic region acute Sep 11:01am Segmental and somatic dysfunction of thoracic region acute [facility] 2024 11:01am Back pain chronic September 06, 2024 11:01am DDD (degenerative disc disease) chronic September 06, 2024 1 1:01am 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 September 11:01am Segmental and somatic dysfunction of cervical region acute [facility] 2024 9:26am Segmental and somatic dysfunction of lumbar region acute Sep 9:26am Segmental and somatic dysfunction of pelvic region acute Sep 9:26am Segmental and somatic dysfunction of thoracic region acute [facility] 2024 9:26am Degeneration of intervertebr al disc [...] thoracic region chronic Septembe r 2024 12:58pm [facility] Work Phone: 1([phone]) 722-816305-27-2025 Evaluation note* Diagnosis Onset Date Resolution Status [...] 09, 2024 9:30am DDD (degenerative disc disease) machine strap buckler sergei August 09, 2024 9:30am Degeneration of [...] August 23 2:27pm DDD (degenerative disc disease) machine strap buckler sergei August 23, 2024 2:27pm Segmental and somatic dysfunction of cervical region acute [facility] 2024 11:30am Segmental and somatic dysfunction of lumbar region acute Joey e 2024 11:30am Segmental and somatic dysfunction of pelvic region acute Aug 11:30am Segmental and somatic dysfunction of thoracic region acute J [facility] 2024 11:30am Back pain chronic August 28 [...] 06, 2024 11:01am DDD (degenerative disc disease) machine strap buckler sergei September 06, 2024 11:01am Degeneration of [...] of thoracic region chronic October 062024 12:58pm [facility] Work Phone: 1(758) 563-469804-28-2025 Evaluation note* Diagnosis Onset Date Resolution Status [...] 09, 2024 9:30am DDD (degenerative disc disease) machine strap buckler sergei August 09, 2024 9:30am Degeneration of [...] August 23 2:27pm DDD (degenerative disc disease) machine strap buckler sergei August 23, 2024 2:27pm Segmental and [...] 06, 2024 11:01am DDD (degenerative disc disease) machine strap buckler sergei September 06, 2024 11:01am Degeneration of [...] ugust 2024 12:57pm DDD (degenerative disc disease) machine strap buckler sergei October 08, 2024 12:57pm 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 October 082024 12:57pm [facility] Work Phone: 1(438) 530-401104-28-2025 Evaluation note* Diagnosis Onset Date Resolution Status [...] 09, 2024 9:30am DDD (degenerative disc disease) machine strap buckler sergei August 09, 2024 9:30am 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 August 9:30am Segmental and somatic dysfunction of cervical region acute J [facility] 2024 2:27pm Segmental and somatic dysfunction of lumbar region acute Joey e 2024 2:27pm Segmental and somatic dysfunction of pelvic region acute Joey e 2024 2:27pm Segmental and somatic dysfunction of thoracic region acute J [facility] 2024 2:27pm Back pain chronic August 23 2:27pm DDD (degenerative disc disease) machine strap buckler sergei August 23, 2024 2:27pm Segmental and somatic dysfunction of cervical region acute J [facility] 2024 11:30am Segmental and somatic dysfunction of lumbar region acute Aug 11:30am Segmental and somatic dysfunction of pelvic region acute Aug 11:30am Segmental and somatic dysfunction of thoracic region acute [facility] 2024 11:30am Back pain chronic August 28 [...] 06, 2024 11:01am DDD (degenerative disc disease) machine strap buckler sergei September 06, 2024 11:01am Degeneration of [...] of thoracic region chronic October 082024 12:57pm [facility] Work Phone: 1(127) 568-182104-28-2025 Evaluation note* Diagnosis Onset Date Resolution Status [...] 09, 2024 9:30am DDD (degenerative disc disease) machine strap buckler sergei August 09, 2024 9:30am Degeneration of [...] August 23 2:27pm DDD (degenerative disc disease) machine strap buckler sergei August 23, 2024 2:27pm Segmental and somatic dysfunction of cervical region acute J [facility] 2024 11:30am Segmental and somatic dysfunction of lumbar region acute Aug 11:30am Segmental and somatic dysfunction of pelvic region acute Aug 11:30am Segmental and somatic dysfunction of thoracic region acute J [facility] 2024 11:30am Back pain chronic August 28 11:30am 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 August 11:30am Segmental and somatic dysfunction of cervical region acute J evin2024 11:01am Segmental and somatic dysfunction of lumbar region acute Sep 11:01am Segmental and somatic dysfunction of pelvic region acute Sep 11:01am Segmental and somatic dysfunction of thoracic region acute [facility]2024 11:01am Back pain chronic September 06, 2024 11:01am DDD (degenerative disc disease) machine strap buckler sergei September 06, 2024 11:01am Degeneration of [...] of thoracic region chronic October 062024 12:58pm [facility] Work Phone: 1(291) 324-446603-31-2025 Evaluation note* Diagnosis Onset Date Resolution Status Admit Date Segmental and somatic dysfunction of cervical region acute [facility] 2024 11:00am Segmental and somatic dysfunction of lumbar region acute [facility] 2024 11:00am Segmental and somatic dysfunction of pelvic region acute [facility] 2024 11:00am Segmental and somatic dysfunction of thoracic region acute 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 July 022024 10:56am Segmental and somatic dysfunction of cervical region acute [facility] 2024 11:27am Segmental and somatic dysfunction of lumbar region acute July 31, 2024 11:27am Segmental and somatic dysfunction of pelvic region acute July 31, 2024 11:27am Segmental and somatic dysfunction of thoracic region acute [facility] 2024 11:27am Back pain chronic July 31, [...] 09, 2024 9:30am DDD (degenerative disc disease) machine strap buckler sergei August 09, 2024 9:30am Degeneration of [...] August 23 2:27pm DDD (degenerative disc disease) machine strap buckler sergei August 23, 2024 2:27pm Segmental and [...] J evin2024 11:01am DDD (degenerative disc disease) machine strap buckler sergei September 06, 2024 11:01am 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 September 11:01am [facility] Work Phone: 1(521) 282-466303-31-2025 Evaluation note* Diagnosis Onset Date Resolution Status [...] 09, 2024 9:30am DDD (degenerative disc disease) machine strap buckler sergei August 09, 2024 9:30am Degeneration of [...] August 23 2:27pm DDD (degenerative disc disease) machine strap buckler sergei August 23, 2024 2:27pm Segmental and [...] 06, 2024 11:01am DDD (degenerative disc disease) machine strap buckler sergei September 06, 2024 11:01am 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 2024 11:00am Segmental and somatic dysfunction of lumbar region acute [facility] 2024 11:00am Segmental and somatic dysfunction of pelvic region acute [facility] 2024 11:00am Segmental and somatic dysfunction of thoracic region acute [facility] 2024 11:00am Back pain chronic June 04 [...] 09, 2024 9:30am DDD (degenerative disc disease) machine strap buckler sergei August 09, 2024 9:30am Degeneration of [...] August 23 2:27pm DDD (degenerative disc disease) machine strap buckler sergei August 23, 2024 2:27pm Segmental and [...] 06, 2024 11:01am DDD (degenerative disc disease) machine strap buckler sergei September 06, 2024 11:01am Degeneration of [...] disc of thoracic region chronic September 9:26am [facility] [facility] Work Phone: 1(177) 269-834502-24-2025 Evaluation note* Diagnosis Onset Date Resolution Status [...] and somatic dysfunction of lumbar region acute [facility] 2024 11:00am Segmental and somatic dysfunction of pelvic region acute [facility] 2024 11:00am Segmental and somatic dysfunction [...] disc of thoracic region chronic July 11:27am [facility] Work Phone: 1(550) 259-453102-24-2025 Evaluation note* Diagnosis Onset Date Resolution Status [...] and somatic dysfunction of cervical region acute [facility] 2024 11:00am Segmental and somatic dysfunction of lumbar region acute [facility] 2024 11:00am Segmental and somatic dysfunction of pelvic region acute [facility] 2024 11:00am Segmental and somatic dysfunction of thoracic region acute 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 August 9:30am [facility] [employer] [facility] Work Phone: 1(534) 212-497702-24-2025 Evaluation note* Diagnosis Onset Date Resolution Status [...] and somatic dysfunction of lumbar region acute [facility] 2024 11:00am Segmental and somatic dysfunction of pelvic region acute [facility] 2024 11:00am Segmental and somatic dysfunction [...] une 2024 9:30am DDD (degenerative disc disease) machine strap buckler sergei August 09, 2024 9:30am Degeneration of [...] une 2024 2:27pm DDD (degenerative disc disease) machine strap buckler sergei August 23, 2024 2:27pm 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 August 2:27pm [facility] Work Phone: 1(401) 107-275202-24-2025 Evaluation note* Diagnosis Onset Date Resolution Status [...] 09, 2024 9:30am DDD (degenerative disc disease) machine strap buckler sergei August 09, 2024 9:30am Degeneration of [...] August 23 2:27pm DDD (degenerative disc disease) machine strap buckler sergei August 23, 2024 2:27pm Segmental and [...] disc of thoracic region chronic August 11:30am [facility] [employer] [facility] Work Phone: 1(508) 283-883312-12-2024 Evaluation note* Diagnosis Onset Date Resolution Status Admit Date Segmental and somatic dysfunction of cervical region acute D ecember 2023 11:27am Segmental and somatic dysfunction of lumbar region acute Dec ember 2023 11:27am Segmental and somatic dysfunction of pelvic region acute Dec ember 2023 11:27am Segmental and somatic dysfunction of thoracic region acute D ecember 2023 11:27am DDD (degenerative disc disease) machine strap buckler sergei February 16, 2024 11:27am Microscopic colitis [...] anuary 2024 11:33am DDD (degenerative disc disease) machine strap buckler sergei March 19, 2024 11:33am Segmental and [...] thoracic region chronic April 30, 2024 1:27pm [facility] Work Phone: 1(576) 142-716912-12-2024 Evaluation note* Diagnosis Onset Date Resolution Status Admit Date Segmental and somatic dysfunction of cervical region acute D ecember 2023 11:27am Segmental and somatic dysfunction of lumbar region acute Dec ember 2023 11:27am Segmental and somatic dysfunction of pelvic region acute Dec ember 2023 11:27am Segmental and somatic dysfunction of thoracic region acute D ecember 2023 11:27am DDD (degenerative disc disease) machine strap buckler sergei February 16, 2024 11:27am Microscopic colitis [...] anuary 2024 11:33am DDD (degenerative disc disease) machine strap buckler sergei March 19, 2024 11:33am Segmental and [...] and somatic dysfunction of pelvic region acute [facility] 2024 11:00am Segmental and somatic dysfunction of thoracic region acute [facility] 2024 11:00am 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 June 042024 11:00am [facility] Work Phone: 1([phone]) 216-231911-12-2024 Evaluation note* Diagnosis Onset Date Resolution Status Admit Date Segmental and somatic dysfunction of cervical region acute N ovember 2023 2:27pm Segmental and somatic dysfunction of lumbar region acute Nov ember 2023 2:27pm Segmental and somatic dysfunction of pelvic region acute Jan ember 2023 2:27pm Segmental and somatic dysfunction of thoracic region acute N ovember 2023 2:27pm DDD (degenerative disc disease) machine strap buckler sergei January 17, 2024 2:27pm Segmental and somatic dysfunction of cervical region acute D ecember 2023 11:27am Segmental and somatic dysfunction of lumbar region acute Dec ember 2023 11:27am Segmental and somatic dysfunction of pelvic region acute Dec ember 2023 11:27am Segmental and somatic dysfunction of thoracic region acute D ecember 2023 11:27am DDD (degenerative disc disease) machine strap buckler sergei February 16, 2024 11:27am Microscopic colitis [...] anuary 2024 11:33am DDD (degenerative disc disease) machine strap buckler sergei March 19, 2024 11:33am Segmental and [...] thoracic region chronic April 30, 2024 1:27pm [facility] Work Phone: Evaluation note* Diagnosis Onset Date [...] Degeneration of intervertebral disc of thoracic region [facility] Work Phone: Evaluation note* Diagnosis Onset [...] Degeneration of intervertebral disc of thoracic region [facility] Work Phone: Evaluation note* Diagnosis Onset [...] Degeneration of intervertebral disc of thoracic region [facility] Work Phone: Evaluation note* Diagnosis Onset [...] Degeneration of intervertebral disc of thoracic region [facility] Work Phone: Evaluation note* Diagnosis Onset [...] thoracic region acute DDD (degenerative disc disease) [facility] Work Phone: Evaluation note* Diagnosis Onset [...] thoracic region acute DDD (degenerative disc disease) [facility] Work Phone: Evaluation note* Diagnosis Onset [...] thoracic region acute DDD (degenerative disc disease) [facility] Work Phone: Evaluation note* Diagnosis Onset [...] thoracic region acute DDD (degenerative disc disease) [facility] Work Phone: Evaluation note* Diagnosis Onset [...] thoracic region acute DDD (degenerative disc disease) [facility] Work Phone: Evaluation note* Diagnosis Onset [...] pelvic region acute DDD (degenerative disc disease) [facility] Work Phone: Evaluation note* Diagnosis Onset [...] pelvic region acute DDD (degenerative disc disease) [facility] Work Phone: Evaluation note* Diagnosis Onset [...] pelvic region acute DDD (degenerative disc disease) [facility] Work Phone: Evaluation note* Diagnosis Onset [...] thoracic region acute DDD (degenerative disc disease) [facility] Work Phone: Evaluation note* Diagnosis Onset [...] thoracic region acute DDD (degenerative disc disease) [facility] Work Phone: Evaluation note* Diagnosis Onset [...] thoracic region acute DDD (degenerative disc disease) [facility] Work Phone: Evaluation note* Diagnosis Onset [...] thoracic region acute DDD (degenerative disc disease) [facility] Work Phone: Instructions* Name Dates Details Patient Instructions Indication:Hyperlipidemia, unspecified Start:24-Dec-2022 Instruction Type:Provider Instructions for Treatment How to Access Health Informa tion Online using Patient Portal and [employer] Indication:Hyperlipidemia, unspecified Start:24-Dec-2022 Instruction Type:Patient Education [...] Informa tion Online using Patient Portal and [employer] Indication:Coronary artery disease Start:05-Jan-2023 Instruction Type:Patient Education Patient Instructions Indication:Hyperlipidemia, unspecified Start:24-Dec-2022 Instruction Type:Provider Instructions for Treatment How to Access Health Informa tion Online using Patient Portal and [employer] Indication:Hyperlipidemia, unspecified Start:24-Dec-2022 Instruction Type:Patient Education [...] Informa tion Online using Patient Portal and [employer] Apps Indication:Hyperlipidemia, unspecified Start:24-Dec-2022 Instruction Type:Patient [...] Work Phone: progress note Author Maite Arceo [facility] Note Date/Time November 26, 2024 1:29pm [facility] [address] [place] [address] OFFICE VISIT Date of Service: 11/26/24 MR#: [id number] Acct: [id number] Name: ANTONIO DECKER Rep #: [id number] : 1945 Provider: JOSIAS Arceo Age/Sex: 79/F Location: [facility] Status: Signed Intake Vital Signs [...] .COMPLEX #5 tabs 0 05/08/24 11/26/24 Rx [id number] 140 gram-sod sulfate 9 See Rx Instructions [...] CPT Codes Procedures - Manipulation: 3-4 regions (08768) Clinical Quality Measures Falls Risk Screening/Assistive Devices Have you fallen in the past year?: No 11/26/24 133 <Electronically signed by Maite Griffin> Date _ Maite Arceo D.C. Cosigner Signature: Date (if applicable) CC: ~ [facility] Work Phone: Progress note Author Maite Arceo [facility] Note Date/Time December 24, 2024 1 2:55pm [facility] [address] [place], [place] [id number] OFFICE VISIT Date of Service: 12/24/24 MR#: [id number] Acct: [id number] Name: ANTONIO DECKER Rep #: [id number] : 1945 Provider: JOSIAS Arceo Age/Sex: 79/F Location: [facility] Status: Signed Intake Vital Signs [...] .COMPLEX #5 tabs 0 05/08/24 12/24/24 Rx [id number] 140 gram-sod sulfate 9 See Rx Instructions [...] CPT Codes Procedures - Manipulation: 3-4 regions (40939) Clinical Quality Measures Falls Risk Screening/Assistive Devices Have you fallen in the past year?: No 12/24/24 1423 <Electronically signed by Maite Griffin> Date _ Maite Arceo D.C. Cosigner Signature: Date (if applicable) CC: ~ [facility] Work Phone: Reason for referral (narrative)No reason for referral information availableW[facility] Work Phone: Summary Purpose Family History No [...] Relationship Condition Age at Onset Recorded Date/T lius Not Specified Disorder of intestine Unknown Osteoporosis Unknown Arthritis Unknown Cardiac disease Unknown Hyperlipidemia Unknown Attempted suicide Unknown Disorder of respiratory system Unknown Disorder of thyroid Unknown Advance Directives No Advanced Directives Records Found Advance Directive Response Recorded Date/ Time Advance Directives Yes May 29, 2 021 2:33pm Living Will Yes May 29, 2020 2:33pm Power of Waste Recycler Yes May 29 2:33pm Advance Directive Response Recorded Date/ Time Advance Directives Yes May 29, 2 021 1:33pm Living Will Yes May 29, 2020 1:33pm Power of Waste Recycler Yes May 29 1:33pm Advance Directive Response Recorded Date/ Time Living Will Yes February 26, 2 023 8:58pm Power of Waste Recycler Yes February 26, 2023 8:58pm Advance Directives [...] 025 1:01pm Procedure Findings Note HNO ID: [id number] Author: Demetri Shipley Service: Gastroenterology Author Type: Physician Type: Brief Op Note Filed: 08/06/2019 1:26 PM Note Text: BRIEF OPERATIVE NOTE PATIENT NAME: Antonio Decker LOG ID: [id number] Surgery Date: 08/06/2019 Surgeon(s) and Logging Engineer(s): Javy Shipley MD -Primary Procedure(s): Procedure(s) (LRB): [...] 2:27pm Segmental and somatic dysfunction of pel asisatou region August 23, 2024 2:27pm Segmental and [...] section and content) DATE CREATED AUTHOR 08/06/2019 [facility] DATE CREATED AUTHOR AUTHOR'S ORGANIZ ATION 01/16/2025 [facility] Care Teams (unrecognized sec tion and [...] Petit MD Primary Care Provider Active Dr. Maite Arceo DC Attending Provider, Referring Pro vider [...] 15, 2024 End: March 15, 2024 Dr. Aihca Blackwood DO Referring Provider Active St art: [...] 2024 End: September 24, 2024 Dr. Maite Acreo DC Attending Provider Active S tart: September [...] physician Active Start: September 06, 2024 Dr. Aicah Blackwood DO Referring Provider Active St art: [...] Status Dates Dr. iAcha Blackwood DO Primary care physician Active Start: [...] End: October 30, 2024 Dr. Aicha Blackwood , Referring Provider Active St art: [...] BE BASED ON THE PRIMARY CLINICAL RECORDS. [facility] [employer], [facility]. provides no warranty or guarantee of the accuracy or completeness of information in this document.
--- NOTE | 2025-02-11 18:49 | STRESSREP ---
Stress Test Report Exercise myocardial perfusion stress test. [72]-year-old [female] who is undergoing stress testing for evaluation for coronary artery disease. Resting EKG shows normal sinus rhythm, nonspecific ST/T wave changes over precordial leads. Intervals otherwise normal. Resting blood pressure is [130/70] mmHg. the patient exercised according to regular Param protocol for duration of 5 minutes and 31 seconds, achieving a maximal heart rate of 151 bpm, which is 106% of the maximal, age-predicted heart rate. The maximum workload was 7 METS. Exercise test was stopped due to target heart rate achieved. Max blood pressure was 142/62. Max RPP: 21,000. There were no ST/T wave changes suggestive of myocardial ischemia on this examination. Myocardial perfusion protocol. [11.2 ] mCi of technetium 99m sestamibi was injected at rest. At peak infusion [33.7 ] mCi of technetium 99m sestamibi was injected stress images were obtained stress and rest images were reconstructed and compared in the short axis vertical long and horizontal long axis. Gated images were also obtained. Perfusion SPECT analysis: Raw images show prominent gastric uptake on rest imaging, just inferior to myocardium. Uptake is pronounced compared to stress raw imaging. There is a small, mild intensity reversible defect located in the mid-distal inferior wall. LVEF on study is 78%, with concordantly normal wall motion. Gated SPECT analysis: The gated ejection fraction is [greater than 70]%. Conclusion: Small reversible inferior wall defect is possible in the setting of processing artifact. However, inferior ischemia is unable to be excluded on this examination. Abnormal exercise myocardial perfusion stress test. [Preserved] ejection fraction.
== END | disposition home or self-care (01) ==
LOC: CVS 07:11
PROVIDERS: PCP Internal Medicine; Referring Provider Internal Medicine; Visit Provider Internal Medicine
DX: I25.10 Atherosclerotic heart disease of native coronary artery without angina pectoris (principal)
CPT/HCPCS: 78452; 93017; A9500; A4216